=== PATIENT | female | born 1950 | race Caucasian/White ===

== ENCOUNTER 2016-10-20 18:51 | Inpatient (IN) | payer MEDICARE ==
[~2016-10-20] VITALS: Ht 177.8 cm; Wt 68.6 kg
[2016-10-20] MEDS ORDERED: ONDANSETRON PF 4 MG/2 ML VIAL. IV ONE (19:15)
[2016-10-20] MEDS ORDERED: IV NORMAL SALINE 1000ML BAG 1,000 ML IV ONE ×2 (19:15→20:00)
[2016-10-20] MEDS ORDERED: HYDROmorphone 2 MG/ML VIAL IV ONE (19:15)
[2016-10-20 19:16] LABS: BASO # 0.2 x10^3/uL (0.0-0.2); BASO % 1 % (0-3); EOS % 1 % (0-3); HEMATOCRIT 35.6 % (36.0-47.0); LYMPH # 2.8 x10^3/uL (1.0-4.8); LYMPH % 15 % (24-48); MEAN CORPUSCULAR HEMOGLOBIN 32 pg (25-35); MEAN CORPUSCULAR HGB CONC 34 g/dL (31-37); MEAN CORPUSCULAR VOLUME 95 fL (79-100); MONO % 9 % (0-9); NEUT % 74 % (31-73); PLATELET COUNT 276 x10^3/uL (140-400); RED BLOOD COUNT 3.74 x10^6/uL (3.50-5.40); RED CELL DISTRIBUTION WIDTH 13.5 % (11.5-14.5); WHITE BLOOD COUNT 18.8 x10^3/uL (4.0-11.0)
[2016-10-20 19:26] LABS: CALCIUM 8.7 mg/dL (8.5-10.1); CREATININE 1.4 mg/dL (0.6-1.0); GFR 37.9; POTASSIUM 3.3 mmol/L (3.5-5.1)
[2016-10-20 19:33] LABS: ALBUMIN 3.3 g/dL (3.4-5.0); ALBUMIN/GLOBULIN RATIO 0.8 (1.0-1.7); TOTAL BILIRUBIN 0.5 mg/dL (0.2-1.0); TOTAL PROTEIN 7.7 g/dL (6.4-8.2)
--- NOTE | 2016-10-20 19:37 | PHYS DOC ---
Past Medical History Past Medical History: Anxiety, Fibromyalgia, Hypertension, Other Additional Past Medical Histor: chronic pain Past Surgical History: Appendectomy, Hysterectomy, Other Additional Past Surgical Histo: fecal transplant, rotator cuff repair Alcohol Use: None Drug Use: Marijuana Adult General Chief Complaint Chief Complaint: back pain and right sided chest pain [facility] HPI Patient is a 65 year old female who presents with history of fibromyalgia chronic back pain with radiculopathy chronically on opioids presents with exacerbation of her back pain for 5 days still able to take her pain meds also complaining of right sided pleuritic chest pain. No cough, fever, substernal chest pain, vomiting or diarrhea, dysuria or flank pain. Review of Systems Review of Systems Constitutional: Denies fever or chills [] Eyes: Denies change in visual acuity, redness, or eye pain [] HENT: Denies nasal congestion or sore throat [] Respiratory: Denies cough or shortness of breath [] Cardiovascular: No additional information not addressed in HPI [] GI: Denies abdominal pain, nausea, vomiting, bloody stools or diarrhea [] : Denies dysuria or hematuria [] Musculoskeletal: Denies back pain or joint pain [] Integument: Denies rash or skin lesions [] Neurologic: Denies headache, focal weakness or sensory changes [] Endocrine: Denies polyuria or polydipsia [] Current Medications Current Medications Current Medications Medications (Trade) Dose Ordered Sig/Sravan Start Time Stop Time Status Last Admin Dose Admin Hydromorphone HCl (Dilaudid) 1 mg PRN Q15MIN PRN 10/20/16 23:00 10/21/16 22:59 10/20/16 22:55 1 MG Info (Do NOT chart on this entry -- for MONITORING) 1 each PRN DAILY PRN 10/20/16 20:30 10/22/16 20:29 Iohexol (Omnipaque 300 Mg/ml) 75 ml 1X ONCE 10/20/16 20:45 10/20/16 20:46 DC Ondansetron HCl (Zofran) 4 mg 1X ONCE 10/20/16 19:15 10/20/16 19:16 DC 10/20/16 19:40 4 MG Sodium Chloride 1,000 ml @ 1,000 mls/hr 1X ONCE 10/20/16 20:00 10/20/16 20:59 DC 10/20/16 22:29 1,000 MLS/HR Allergies Allergies Allergies Coded Allergies Type Severity Reaction Last Updated Verified NSAIDS (Non-Steroidal Anti-Inflamma Adverse Reaction Unknown Diarrhea 11/19/15 Yes codeine Adverse Reaction Unknown Nausea and Vomiting 11/19/15 Yes metronidazole Adverse Reaction Unknown Nausea and Vomiting 11/19/15 Yes Physical Exam Physical Exam Constitutional: Well developed, well nourished, no acute distress, non-toxic appearance. [] HENT: Normocephalic, atraumatic, bilateral external ears normal, oropharynx moist, no oral exudates, nose normal. [] Eyes: PERRLA, EOMI, conjunctiva normal, no discharge. [] Neck: Normal range of motion, no tenderness, supple, no stridor. [] Cardiovascular:Heart rate regular rhythm, no murmur [] Lungs & Thorax: Bilateral breath sounds clear to auscultation [] Abdomen: Bowel sounds normal, soft, no tenderness, no masses, no pulsatile masses. [] Skin: Warm, dry, no erythema, no rash. [] Back: No tenderness, no CVA tenderness. [] Extremities: No tenderness, no cyanosis, no clubbing, ROM intact, no edema. [] Neurologic: Alert and oriented X 3, normal motor function, normal sensory function, no focal deficits noted. [] Psychologic: Affect normal, judgement normal, mood normal. [] Current Patient Data Vital Signs Vital Signs Date Time Temp Pulse Resp B/P (MAP) Pulse Ox O2 Delivery O2 Flow Rate FiO2 10/20/16 22:30 120 20 139/73 (95) 92 Nasal Cannula 3.0 10/20/16 19:00 98.4 98.4 Lab Values Laboratory Tests Test 10/20/16 19:10 10/20/16 20:06 10/20/16 20:20 White Blood Count 18.8 x10^3/uL (4.0-11.0) H Red Blood Count 3.74 x10^6/uL (3.50-5.40) Hemoglobin 12.0 g/dL (12.0-15.5) Hematocrit 35.6 % (36.0-47.0) L Mean Corpuscular Volume 95 fL (79-100) Mean Corpuscular Hemoglobin 32 pg (25-35) Mean Corpuscular Hemoglobin Concent 34 g/dL (31-37) Red Cell Distribution Width 13.5 % (11.5-14.5) Platelet Count 276 x10^3/uL (140-400) Neutrophils (%) (Auto) 74 % (31-73) H Lymphocytes (%) (Auto) 15 % (24-48) L Monocytes (%) (Auto) 9 % (0-9) Eosinophils (%) (Auto) 1 % (0-3) Basophils (%) (Auto) 1 % (0-3) Neutrophils # (Auto) 13.9 x10^3uL (1.8-7.7) H Lymphocytes # (Auto) 2.8 x10^3/uL (1.0-4.8) Monocytes # (Auto) 1.7 x10^3/uL (0.0-1.1) H Eosinophils # (Auto) 0.2 x10^3/uL (0.0-0.7) Basophils # (Auto) 0.2 x10^3/uL (0.0-0.2) Segmented Neutrophils % 73 % (35-66) H Lymphocytes % 18 % (24-48) L Monocytes % 4 % (0-10) Eosinophils % 5 % (0-5) Platelet Estimate Adequate (ADEQUATE) Sodium Level 130 mmol/L (136-145) L Potassium Level 3.3 mmol/L (3.5-5.1) L Chloride Level 92 mmol/L (98-107) L Carbon Dioxide Level 25 mmol/L (21-32) Anion Gap 13 (6-14) Blood Urea Nitrogen 16 mg/dL (7-20) Creatinine 1.4 mg/dL (0.6-1.0) H Estimated GFR (Cockcroft-Gault) 37.9 BUN/Creatinine Ratio 11 (6-20) Glucose Level 124 mg/dL (70-99) H Calcium Level 8.7 mg/dL (8.5-10.1) Total Bilirubin 0.5 mg/dL (0.2-1.0) Aspartate Amino Transferase (AST) 30 U/L (15-37) Alanine Aminotransferase (ALT) 15 U/L (14-59) Alkaline Phosphatase 84 U/L (46-116) Troponin I Quantitative < 0.017 ng/mL (0.000-0.055) Total Protein 7.7 g/dL (6.4-8.2) Albumin 3.3 g/dL (3.4-5.0) L Albumin/Globulin Ratio 0.8 (1.0-1.7) L Urine Collection Type Unknown Urine Color Yellow Urine Clarity Cloudy Urine pH 5.5 Urine Specific Brok[place] 1.020 Urine Protein 30 mg/dL (NEG-TRACE) Urine Glucose (UA) Negative mg/dL (NEG) Urine Ketones (Stick) Negative mg/dL (NEG) Urine Blood Large (NEG) Urine Nitrite Negative (NEG) Urine Bilirubin Small (NEG) Urine Urobilinogen Dipstick 0.2 mg/dL (0.2 mg/dL) Urine Leukocyte Esterase Negative (NEG) Urine RBC 11-20 /HPF (0-2) Urine WBC 1-4 /HPF (0-4) Urine Squamous Epithelial Cells Many /LPF Urine Amorphous Sediment Present /HPF Urine Bacteria Few /HPF (0-FEW) Urine Granular Casts Occasional /HPF Urine Mucus Marked /LPF Lactic Acid Level 0.6 mmol/L (0.4-2.0) Laboratory Tests 10/20/16 19:10 Laboratory Tests 10/20/16 19:10 EKG EKG EKG sinus tachycardia sinus rhythm no STEMI QTC normal my interpretation Radiology/Procedures Radiology/Procedures Chest x-ray negative per radiology [] [facility] [address], [place] [id number] IMAGING REPORT Signed PATIENT: RODOLFO ELLER ACCOUNT: [id number] : 1950 LOCATION: ER AGE: 65 SEX: F EXAM STATUS: REG ER ORD. PHYSICIAN: TOMASA OLIVA MD REASON: right chest pain eval for PE PROCEDURE: CT ANGIOGRAPHY CHEST Indication: Right-sided chest pain for 5 days. Technique: Axial images and coronal and sagittal maximum intensity projection reformatted images are provided. 75 mL of intravenous Isovue-370 was administered without complication. No comparison is available. One or more of the following individualized dose reduction techniques were utilized for this examination: 1. Automated exposure control 2. Adjustment of the mA and/or kV according to patient size 3. Use of iterative reconstruction technique Findings: The contrast bolus is satisfactory. There is no filling defect to suggest pulmonary embolism. There is atheromatous disease in the thoracic aorta without aneurysm or dissection. The heart is not enlarged. Coronary artery calcifications are noted. There is no hilar or mediastinal adenopathy. There is wdfq-ar-dsodtifn emphysema. There is dependent atelectasis. There is consolidation in the right lower lobe. There are minimal pleural effusions. There are left upper lobe nodules, 2 of which are cavitary, the largest is 16 mm in size. There is no adrenal mass. There are degenerative changes in the spine. IMPRESSION: 1. Negative for pulmonary embolism. 2. Left upper lobe nodules, 2 of which are cavitary, measure up to 16 mm in size. Differential considerations are quite broad, would include metastatic disease, septic emboli, and vasculitis. 3. Right lower lobe consolidation may represent pneumonia. 4. Emphysema. Electronically signed by: Xavier Manjarrez MD (10/20/2016 9:40 PM) [facility] DICTATED and SIGNED BY: XAVIER MANJARREZ MD DATE: 10/20/162132 CC: GATITO WALLACE MD; ELISABETH BEAVERS MD; TOMASA OLIVA MD ~ Impressions: Community-acquired pneumonia hypoxemia Tachycardia Course & Med Decision Making Course & Med Decision Making Pertinent Labs and Imaging studies reviewed. (See chart for details) Patient was a checkout to me with CT angiogram of the chest pending. CT angiogram did not show any PE but there is a right lower lobe consolidation consistent with pneumonia. She is received IV fluids and blood cultures. I started Rocephin and azithromycin and she's requiring oxygen to keep her O2 sats above 95%. She's being admitted to telemetry in stable condition this time. Orders have been written. Dragon Disclaimer Dragon Disclaimer This electronic medical record was generated, in whole or in part, using a voice recognition dictation system. Departure Departure Impression: Primary Impression: Community acquired pneumonia Disposition: ADMITTED INPATIENT Admitting Physician: Ailyn Camp Condition: STABLE Referrals: ELISABETH BEAVERS MD (PCP) Problem Qualifiers Primary Impression: Community acquired pneumonia Laterality: right Lung location: lower lobe of lung Qualified Codes: J18.1 - Lobar pneumonia, unspecified organism TOMASA OLIVA MD Oct 20, 2016 19:37 GATITO WALLACE MD Oct 20, 2016 22:51
[2016-10-20 20:16] LABS: BILIRUBIN,URINE SMALL (NEG); GLUCOSE,URINE NEGATIVE (NEG); NITRITE,URINE NEGATIVE (NEG); PH,URINE 5.5; PROTEIN,URINE 30 mg/dL (NEG-TRACE); UROBILINOGEN,URINE 0.2 mg/dL (0.2 mg/dL)
[2016-10-20 20:23] LABS: BACTERIA,URINE FEW /HPF (0-FEW); SQUAMOUS EPITHELIAL CELL,UR MANY /LPF
[2016-10-20] MEDS ORDERED: CONTRAST GIVEN MC PRN (20:30)
[2016-10-20] MEDS ORDERED: IOHEXOL 300 MG/ML 75 ML VIAL IV ONE (20:45)
[2016-10-20 20:53] LABS: % EOS 5 % (0-5); PLT ESTIMATE ADEQUATE (ADEQUATE)
--- NOTE | 2016-10-20 21:43 | RAD ---
Indication: Right-sided chest pain for 5 days. Technique: Axial images and coronal and sagittal maximum intensity projection reformatted images are provided. 75 mL of intravenous Isovue-370 was administered without complication. No comparison is available. One or more of the following individualized dose reduction techniques were utilized for this examination: 1. Automated exposure control 2. Adjustment of the mA and/or kV according to patient size 3. Use of iterative reconstruction technique Findings: The contrast bolus is satisfactory. There is no filling defect to suggest pulmonary embolism. There is atheromatous disease in the thoracic aorta without aneurysm or dissection. The heart is not enlarged. Coronary artery calcifications are noted. There is no hilar or mediastinal adenopathy. There is zmhv-hm-ipwlutlg emphysema. There is dependent atelectasis. There is consolidation in the right lower lobe. There are minimal pleural effusions. There are left upper lobe nodules, 2 of which are cavitary, the largest is 16 mm in size. There is no adrenal mass. There are degenerative changes in the spine. IMPRESSION: 1. Negative for pulmonary embolism. 2. Left upper lobe nodules, 2 of which are cavitary, measure up to 16 mm in size. Differential considerations are quite broad, would include metastatic disease, septic emboli, and vasculitis. 3. Right lower lobe consolidation may represent pneumonia. 4. Emphysema. Electronically signed by: Xavier Manjarrez MD (10/20/2016 9:40 PM) [facility]
[2016-10-20] MEDS ORDERED: HYDROmorphone 2 MG/ML VIAL IV/SQ PRN (23:00)
[2016-10-20] MEDS ORDERED: AZITHRMYCN 500MG IVPB FOR OMNI 250 ML IV ONE (23:30)
[2016-10-21] VITALS (7 sets, daily range): BP systolic 94–154; BP diastolic 52–97
[2016-10-21] MEDS ORDERED: OXYC10TA45 PO (00:36)
[2016-10-21] MEDS ORDERED: HYDR-2766 PO (00:36)
[2016-10-21] MEDS: HYDROcodone/APAP 10/325 1 TAB TABLET PO PRN ×6 (01:15→23:10)
[2016-10-21] MEDS ORDERED: LEXAPRO20 MG PO (05:37)
[2016-10-21] MEDS ORDERED: DIPH25CA58 PO (05:37)
[2016-10-21] MEDS ORDERED: HYDR12.58 PO (05:37)
[2016-10-21] MEDS ORDERED: MELA3TAB2 PO (05:37)
[2016-10-21] MEDS ORDERED: QUET25TA5 PO (05:37)
[2016-10-21] MEDS: oxyCODONE ER 10 MG TAB.ER.12H PO SCH ×2 (08:20→21:11)
[2016-10-21] MEDS: NICOTINE 21MG PATCH. TD SCH (08:20)
--- NOTE | 2016-10-21 08:22 | RAD ---
Single view chest History:Right pleuritic chest pain today An AP view of the chest is submitted. Comparison: 11/19/2015. Findings: There is a couple of foci nodularity of the mid to superior left hemithorax more apparent on this exam. There is no dependent pleural fluid or pneumothorax. Cardiac silhouette is stable, within normal limits. There is mild interstitial opacity. No convincing lobar infiltrate is identified by radiograph, low lung volumes due to poor inspiration. Impression: There is suboptimal inspiration. There are a couple of foci of nodularity of the mid to superior left hemithorax, CT already performed. Right lower lobe infiltrate on CT is poorly distinguished by this radiograph.
--- NOTE | 2016-10-21 11:09 | EKG ---
[facility] [address] [place] [address] Test Date: 2016-10-20 Test Time: 19:13:33 Pat Name: RODOLFO ELLER Department: Room: 2 Gender: F Biogeographer: : 1950 Requested By: TOMASA OLIVA Order Number: [id number] Reading MD: Jeffery Kunz Measurements Intervals [place] Rate: 121 P: 61 MS: 134 QRS: 52 QRSD: 88 T: 45 QT: 310 QTc: 443 Interpretive Statements SINUS TACHYCARDIA Electronically Signed On 10-24-2016 9:59:03 CDT by Jeffery Kunz
[2016-10-21] MEDS ORDERED: diphenhydrAMINE HCL 25 MG CAPSULE PO PRN (12:15)
[2016-10-21] MEDS ORDERED: NON FORMULARY ITEM (Melatonin 1 TAB) PO PRN (12:15)
--- NOTE | 2016-10-21 12:35 | HP ---
ADMIT DATE: 10/21/2016 CHIEF COMPLAINT: Shortness of breath, chest pain, back pain. HISTORY OF PRESENT ILLNESS: The patient is a pleasant 65-year-old female, who presented with chest pain, shortness of breath and back pain. We did imaging in the ER which is showing left upper lobe nodules which could be possibly metastatic disease versus emboli versus vasculitis. She also has a right-sided consolidation, which is probably pneumonia. I discussed the case with ER physician. We are going to admit the patient with consultation to pulmonary medicine. PAST MEDICAL HISTORY: Anxiety, fibromyalgia, hypertension, hysterectomy, appendectomy, fecal transplant, rotator cuff repair. ALLERGIES: NSAIDS. FAMILY HISTORY: Diabetes. SOCIAL HISTORY: She does not drink, smoke or take drugs. MEDICATIONS: Reviewed. REVIEW OF SYSTEMS: GENERAL: No history of weight change, weakness or fevers. SKIN: No bruising, hair changes or rashes. EYES: No blurred, double or loss of vision. NOSE AND THROAT: No history of nosebleeds, hoarseness or sore throat. HEART: No history of palpitations. Complains of chest pain. LUNGS: Denies cough, hemoptysis, wheezing. She complains of shortness of breath. GASTROINTESTINAL: Denies changes in appetite, nausea, vomiting, diarrhea or constipation. GENITOURINARY: No history of frequency, urgency, hesitancy or nocturia. NEUROLOGIC: Denies history of numbness, tingling, tremor or weakness. PSYCHIATRIC: No history of panic, anxiety or depression. ENDOCRINE: No history of heat or cold intolerance, polyuria or polydipsia. EXTREMITIES: Denies muscle weakness, joint pain, pain on walking or stiffness. PHYSICAL EXAMINATION: VITAL SIGNS: Temperature afebrile, pulse 100, respirations 20, blood pressure 94/56. GENERAL: She is alert, cooperative. HEART: Normal S1, S2. LUNGS: Diminished with slight crackles. ABDOMEN: Soft, positive bowel sounds. EXTREMITIES: Trace edema. SKIN: No rashes. PSYCHIATRIC: She is a little anxious. VASCULAR: Good capillary refill. ENDOCRINE: No thyromegaly. LYMPHATICS: No cervical nodes. HEMATOPOIETIC: No bruising. LABORATORY DATA: White count 19, hemoglobin 12, platelets 276. Electrolytes: Sodium 130, potassium 3.3, chloride 92, bicarbonate 25, BUN 16, creatinine 1.4, glucose 124. ASSESSMENT AND PLAN: Pneumonia and possible nodules in the lungs with possible metastatic disease. We will consult Pulmonary Medicine, IV antibiotics, DuoNebs, oxygen. We will consider steroids if pulmonary agrees. Replace her potassium. PT, OT and home meds. KYLE RYAN DO DR: KI/regla JOB#: [id number] / [id number]
[2016-10-21] MEDS: HYDROmorphone 2 MG/ML VIAL IVP PRN ×3 (13:12→19:34)
--- NOTE | 2016-10-21 13:13 | PDOC ---
Provider Note Provider Note [id number] acute resp fail abnl ct pneumonia copd/emphysema see orders. JAREK BLACKWELL MD Oct 21, 2016 13:13
--- NOTE | 2016-10-21 14:02 | CONS ---
DATE OF CONSULTATION: 10/21/2016 HISTORY OF PRESENT ILLNESS: I was asked to see this 65-year-old lady for abnormal CT of the chest, shortness of breath, chest pain. She has history of at least [id number]-[id number] smoking, continues to smoke about 1 pack per day. She states that she has not been diagnosed with COPD. She has not felt good for the past 5 or 6 days. She states that last week she did not have any problems. She has had chest pain, mostly right-sided. She has had fever, cough now with brown sputum production. She denies runny nose or nasal congestion. Has had diarrhea for at least 20 years. She developed C. diff colitis 2 years ago, which was very difficult to treat and since then she has had diarrhea. She smoked marijuana before. She denies IV drug abuse. She does not have any pets. PAST MEDICAL HISTORY: Hypertension, anxiety, history of C. diff. ALLERGIES: NSAIDS, CODEINE, FLAGYL. MEDICATIONS: Currently she is on azithromycin, Rocephin, Celexa, Dilaudid, nicotine patch, Zofran p.r.n., Seroquel. SOCIAL HISTORY: History of at least 39-[id number] smoking, continues to smoke about 1 pack per day. FAMILY HISTORY: There is no history of lung disease. REVIEW OF SYSTEMS: As mentioned as above, other systems otherwise negative. PHYSICAL EXAMINATION: GENERAL: This is an ill-appearing lady. VITAL SIGNS: Her O2 saturation on 3 liters of oxygen is 92%, respiratory rate 22, heart rate 100, blood pressure 154/76, temperature 98.6. HEENT: Normocephalic, atraumatic. Pupils are equal, round, reactive to light. Nose is clear. She has poor dentition. NECK: There is no JVD, lymphadenopathy or thyromegaly. CARDIOVASCULAR: Regular rate and rhythm. Distant heart sounds. CHEST: Inspection is normal. LUNGS: Clear to auscultation. A few end expiratory wheezing with forced exhalation. ABDOMEN: Soft. Bowel sounds are good. There is no mass. EXTREMITIES: There is no edema. LYMPHATICS: There is no lymphadenopathy. SKIN: Chronic changes. NEUROLOGIC: Alert and oriented x 3. LABORATORY DATA: I reviewed the following lab data: Chest x-ray, nodularity seen in left upper lobe area. CT of the chest did not show pulmonary embolism. It showed left upper lobe nodules, 2 of them are cavitary, the largest is 60 mm in size. Right lower lobe infiltrate, emphysema changes. Sodium 130, potassium 3.3, chloride 92, CO2 25, glucose 124, BUN 16, creatinine 1.4. Total bilirubin 0.5, AST 30, ALT 50, and alk phos 84. Troponin 0.03. Albumin 3.3. WBC 18.8, hemoglobin 12, platelet 276. IMPRESSION: 1. Acute respiratory failure, multifactorial in etiology. 2. Abnormal CT of the chest with cavitary pulmonary nodules, could be secondary to metastatic disease versus septic emboli versus [place] granulomatosis, lung abscess versus others. 3. Poor dentition. 4. Acute kidney injury. 5. Hyponatremia. 6. Hypokalemia. 7. Leukocytosis. 8. Right lower lobe infiltrate, probably pneumonia. 9. Tobacco habituation. 10. Emphysema/chronic obstructive pulmonary disease. PLAN AND RECOMMENDATIONS: 1. Titrate FiO2 to keep O2 saturation 92%. 2. Start bronchodilator. 3. Continue Rocephin and azithromycin. 4. Blood cultures x 2. 5. Urine for legionella and strep pneumoniae antigen. 6. Echocardiogram. 7. ANCA. 8. SAVAGE panel. 9. She may require CT guided biopsy. Pulmonary nodules are peripheral. 10. Urine drug screen. 11. I had a long discussion with her regarding smoking cessation. I have advised her to stop smoking forever. 12. C-reactive protein. 13. Continue antibiotics. 14. She has multiple dental cavities. She would require a dental exam by a dentist. 15. The findings and recommendations were discussed with the patient. She understood and agreed to proceed with the plan. I have answered all of her questions. JAREK BLACKWELL M.D. : BRONSON/regla JOB#: [id number] / [id number]
[2016-10-21] MEDS: AZITHROMYCIN 500 MG in IV NORMAL SALINE 250ML 250 ML IV SCH (14:15)
[2016-10-21 14:18] LABS: BARBITURATES NEG (NEG); BENZODIAZEPINES NEG (NEG); CANNABINOIDS POS (NEG); COCAINE NEG (NEG); METHADONE NEG (NEG); OPIATES POS (NEG); PHENCYCLIDINE NEG (NEG)
[2016-10-21] MEDS: IPRATRPIUM/ALBUTEROL 0.5/2.5MG 3 ML NEBU. NEB SCH ×2 (16:25→19:20)
[2016-10-21] MEDS: QUEtiapine 25 MG TABLET. PO SCH (21:10)
[2016-10-21] MEDS: CITALOPRAM 20 MG TABLET. PO SCH (21:11)
[2016-10-21] MEDS: hydroCHLOROthiazide 12.5 MG CAPSULE PO SCH (21:11)
[2016-10-22] MEDS: HYDROmorphone 2 MG/ML VIAL IVP PRN ×7 (01:37→22:43)
[2016-10-22 03:00] VITALS: BP 110/62
[2016-10-22] MEDS: HYDROcodone/APAP 10/325 1 TAB TABLET PO PRN ×4 (06:27→22:47)
[2016-10-22 07:00] VITALS: BP 102/64
[2016-10-22] MEDS: IPRATRPIUM/ALBUTEROL 0.5/2.5MG 3 ML NEBU. NEB SCH ×4 (07:19→19:29)
[2016-10-22 08:17] LABS: BASO % 0 % (0-3); EOS % 1 % (0-3); HEMATOCRIT 32.3 % (36.0-47.0); HEMOGLOBIN 10.9 g/dL (12.0-15.5); LYMPH # 1.8 x10^3/uL (1.0-4.8); LYMPH % 10 % (24-48); MEAN CORPUSCULAR HEMOGLOBIN 32 pg (25-35); MEAN CORPUSCULAR HGB CONC 34 g/dL (31-37); MEAN CORPUSCULAR VOLUME 95 fL (79-100); MONO % 6 % (0-9); NEUT % 82 % (31-73); PLATELET COUNT 266 x10^3/uL (140-400); RED BLOOD COUNT 3.38 x10^6/uL (3.50-5.40); RED CELL DISTRIBUTION WIDTH 13.6 % (11.5-14.5); WHITE BLOOD COUNT 18.2 x10^3/uL (4.0-11.0)
[2016-10-22] MEDS: NICOTINE 21MG PATCH. TD SCH (08:19)
[2016-10-22] MEDS: oxyCODONE ER 10 MG TAB.ER.12H PO SCH ×2 (08:19→20:34)
[2016-10-22 08:30] LABS: CALCIUM 8.4 mg/dL (8.5-10.1); CREATININE 0.9 mg/dL (0.6-1.0); POTASSIUM 3.5 mmol/L (3.5-5.1)
[2016-10-22 09:13] LABS: SPECIMEN SOURCE Urine (.)
[2016-10-22 10:56] VITALS: BP 88/54
--- NOTE | 2016-10-22 12:11 | PDOC ---
PULMONARY PROGRESS NOTES Subjective feels better, less sob, pain, has cough, brown sputum Vitals Vital Signs Date Time Temp Pulse Resp B/P (MAP) Pulse Ox O2 Delivery O2 Flow Rate FiO2 10/22/16 11:41 92 Nasal Cannula 3.0 10/22/16 10:56 98.5 67 22 88/54 (65) 98.5 ROS: No Nausea, No Chest Pain General: Alert, Oriented X4 HEENT: Other (nc at perrl nose clear, poor dentition) Lungs: Crackles Cardiovascular: S1, S2 Abdomen: Soft, Non-tender Neuro Exam: Oriented Extremities: No Edema Skin: Warm Labs Laboratory Tests Test 10/20/16 19:10 10/20/16 20:06 10/20/16 20:20 10/21/16 05:48 White Blood Count 18.8 x10^3/uL (4.0-11.0) Red Blood Count 3.74 x10^6/uL (3.50-5.40) Hemoglobin 12.0 g/dL (12.0-15.5) Hematocrit 35.6 % (36.0-47.0) Mean Corpuscular Volume 95 fL (79-100) Mean Corpuscular Hemoglobin 32 pg (25-35) Mean Corpuscular Hemoglobin Concent 34 g/dL (31-37) Red Cell Distribution Width 13.5 % (11.5-14.5) Platelet Count 276 x10^3/uL (140-400) Neutrophils (%) (Auto) 74 % (31-73) Lymphocytes (%) (Auto) 15 % (24-48) Monocytes (%) (Auto) 9 % (0-9) Eosinophils (%) (Auto) 1 % (0-3) Basophils (%) (Auto) 1 % (0-3) Neutrophils # (Auto) 13.9 x10^3uL (1.8-7.7) Lymphocytes # (Auto) 2.8 x10^3/uL (1.0-4.8) Monocytes # (Auto) 1.7 x10^3/uL (0.0-1.1) Eosinophils # (Auto) 0.2 x10^3/uL (0.0-0.7) Basophils # (Auto) 0.2 x10^3/uL (0.0-0.2) Segmented Neutrophils % 73 % (35-66) Lymphocytes % 18 % (24-48) Monocytes % 4 % (0-10) Eosinophils % 5 % (0-5) Platelet Estimate Adequate (ADEQUATE) Sodium Level 130 mmol/L (136-145) Potassium Level 3.3 mmol/L (3.5-5.1) Chloride Level 92 mmol/L (98-107) Carbon Dioxide Level 25 mmol/L (21-32) Anion Gap 13 (6-14) Blood Urea Nitrogen 16 mg/dL (7-20) Creatinine 1.4 mg/dL (0.6-1.0) Estimated GFR (Cockcroft-Gault) 37.9 BUN/Creatinine Ratio 11 (6-20) Glucose Level 124 mg/dL (70-99) Calcium Level 8.7 mg/dL (8.5-10.1) Total Bilirubin 0.5 mg/dL (0.2-1.0) Aspartate Amino Transf (AST/SGOT) 30 U/L (15-37) Alanine Aminotransferase (ALT/SGPT) 15 U/L (14-59) Alkaline Phosphatase 84 U/L (46-116) Troponin I Quantitative < 0.017 ng/mL (0.000-0.055) 0.037 ng/mL (0.000-0.055) Total Protein 7.7 g/dL (6.4-8.2) Albumin 3.3 g/dL (3.4-5.0) Albumin/Globulin Ratio 0.8 (1.0-1.7) Urine Collection Type Unknown Urine Color Yellow Urine Clarity Cloudy Urine pH 5.5 Urine Specific [place] 1.020 Urine Protein 30 mg/dL (NEG-TRACE) Urine Glucose (UA) Negative mg/dL (NEG) Urine Ketones (Stick) Negative mg/dL (NEG) Urine Blood Large (NEG) Urine Nitrite Negative (NEG) Urine Bilirubin Small (NEG) Urine Urobilinogen Dipstick 0.2 mg/dL (0.2 mg/dL) Urine Leukocyte Esterase Negative (NEG) Urine RBC 11-20 /HPF (0-2) Urine WBC 1-4 /HPF (0-4) Urine Squamous Epithelial Cells Many /LPF Urine Amorphous Sediment Present /HPF Urine Bacteria Few /HPF (0-FEW) Urine Granular Casts Occasional /HPF Urine Mucus Marked /LPF Lactic Acid Level 0.6 mmol/L (0.4-2.0) Test 10/21/16 11:50 10/21/16 13:45 10/22/16 07:15 Troponin I Quantitative 0.033 ng/mL (0.000-0.055) C-Reactive Protein, Quantitative 285.8 mg/L (0-3.3) Body Fluid Culture (LAB) (.) Urine Opiates Screen Pos (NEG) Urine Methadone Screen Neg (NEG) Urine Barbiturates Neg (NEG) Urine Phencyclidine Screen Neg (NEG) Urine Amphetamine/Methamphetamine Neg (NEG) Urine Benzodiazepines Screen Neg (NEG) Urine Cocaine Screen Neg (NEG) Urine Cannabinoids Screen Pos (NEG) Urine Ethyl Alcohol Neg (NEG) Urine Legionella Antigen Negative (Negative) Streptococcus pneumoniae Antigen Negative (Negative) Organism Identification (LAB) (.) JESSICA Specimen Source Urine (.) White Blood Count 18.2 x10^3/uL (4.0-11.0) Red Blood Count 3.38 x10^6/uL (3.50-5.40) Hemoglobin 10.9 g/dL (12.0-15.5) Hematocrit 32.3 % (36.0-47.0) Mean Corpuscular Volume 95 fL (79-100) Mean Corpuscular Hemoglobin 32 pg (25-35) Mean Corpuscular Hemoglobin Concent 34 g/dL (31-37) Red Cell Distribution Width 13.6 % (11.5-14.5) Platelet Count 266 x10^3/uL (140-400) Neutrophils (%) (Auto) 82 % (31-73) Lymphocytes (%) (Auto) 10 % (24-48) Monocytes (%) (Auto) 6 % (0-9) Eosinophils (%) (Auto) 1 % (0-3) Basophils (%) (Auto) 0 % (0-3) Neutrophils # (Auto) 14.9 x10^3uL (1.8-7.7) Lymphocytes # (Auto) 1.8 x10^3/uL (1.0-4.8) Monocytes # (Auto) 1.2 x10^3/uL (0.0-1.1) Eosinophils # (Auto) 0.2 x10^3/uL (0.0-0.7) Basophils # (Auto) 0.0 x10^3/uL (0.0-0.2) Sodium Level 133 mmol/L (136-145) Potassium Level 3.5 mmol/L (3.5-5.1) Chloride Level 97 mmol/L (98-107) Carbon Dioxide Level 25 mmol/L (21-32) Anion Gap 11 (6-14) Blood Urea Nitrogen 8 mg/dL (7-20) Creatinine 0.9 mg/dL (0.6-1.0) Estimated GFR (Cockcroft-Gault) 63.0 Glucose Level 96 mg/dL (70-99) Calcium Level 8.4 mg/dL (8.5-10.1) Laboratory Tests Test 10/21/16 13:45 10/22/16 07:15 Body Fluid Culture (LAB) (.) Urine Opiates Screen Pos (NEG) Urine Methadone Screen Neg (NEG) Urine Barbiturates Neg (NEG) Urine Phencyclidine Screen Neg (NEG) Urine Amphetamine/Methamphetamine Neg (NEG) Urine Benzodiazepines Screen Neg (NEG) Urine Cocaine Screen Neg (NEG) Urine Cannabinoids Screen Pos (NEG) Urine Ethyl Alcohol Neg (NEG) Urine Legionella Antigen Negative (Negative) Streptococcus pneumoniae Antigen Negative (Negative) Organism Identification (LAB) (.) JESSICA Specimen Source Urine (.) White Blood Count 18.2 x10^3/uL (4.0-11.0) Red Blood Count 3.38 x10^6/uL (3.50-5.40) Hemoglobin 10.9 g/dL (12.0-15.5) Hematocrit 32.3 % (36.0-47.0) Mean Corpuscular Volume 95 fL (79-100) Mean Corpuscular Hemoglobin 32 pg (25-35) Mean Corpuscular Hemoglobin Concent 34 g/dL (31-37) Red Cell Distribution Width 13.6 % (11.5-14.5) Platelet Count 266 x10^3/uL (140-400) Neutrophils (%) (Auto) 82 % (31-73) Lymphocytes (%) (Auto) 10 % (24-48) Monocytes (%) (Auto) 6 % (0-9) Eosinophils (%) (Auto) 1 % (0-3) Basophils (%) (Auto) 0 % (0-3) Neutrophils # (Auto) 14.9 x10^3uL (1.8-7.7) Lymphocytes # (Auto) 1.8 x10^3/uL (1.0-4.8) Monocytes # (Auto) 1.2 x10^3/uL (0.0-1.1) Eosinophils # (Auto) 0.2 x10^3/uL (0.0-0.7) Basophils # (Auto) 0.0 x10^3/uL (0.0-0.2) Sodium Level 133 mmol/L (136-145) Potassium Level 3.5 mmol/L (3.5-5.1) Chloride Level 97 mmol/L (98-107) Carbon Dioxide Level 25 mmol/L (21-32) Anion Gap 11 (6-14) Blood Urea Nitrogen 8 mg/dL (7-20) Creatinine 0.9 mg/dL (0.6-1.0) Estimated GFR (Cockcroft-Gault) 63.0 Glucose Level 96 mg/dL (70-99) Calcium Level 8.4 mg/dL (8.5-10.1) Medications Active Scripts Medications Dose Route/Sig Max Daily Dose Days Date Category Melatonin 3 Mg Tablet 1 Tab PO PRN QHS PRN 10/21/16 Reported Seroquel (Quetiapine Fumarate) 25 Mg Tablet 1 Tab PO QHS 10/21/16 Reported Benadryl (Diphenhydramine Hcl) 25 Mg Capsule 1 Cap PO PRN QHS PRN 10/21/16 Reported Hydrochlorothiazide Tablet (Hydrochlorothiazide) 12.5 Mg Tablet 1 Tab PO QHS 10/21/16 Reported Lexapro (Escitalopram Oxalate) 20 Mg Tablet 1 Tab PO QHS 10/21/16 Reported Hydrocodone-Apap 10-325 (Hydrocodone Bit/Acetaminophen) 1 Each Tablet 1 Tab PO PRN Q4HRS 10/21/16 Reported Oxycontin (Oxycodone HCl) 10 Mg Tab.er.12h 10 Mg PO BID 10/21/16 Reported Impression . IMPRESSION: 1. Acute respiratory failure, multifactorial in etiology. 2. Abnormal CT of the chest with cavitary pulmonary nodules, could be secondary to metastatic disease versus septic emboli versus [place] granulomatosis, lung abscess versus others. 3. Poor dentition. 4. Acute kidney injury. 5. Hyponatremia. 6. Hypokalemia. 7. Leukocytosis. 8. Right lower lobe infiltrate, probably pneumonia. 9. Tobacco habituation. 10. Emphysema/chronic obstructive pulmonary disease. 11. +uds Plan . PLAN AND RECOMMENDATIONS: 1. Titrate FiO2 to keep O2 saturation 92%. 2. bronchodilator. 3. Continue Rocephin and azithromycin. 4. fu Blood cultures x 2. 5. Urine for legionella and strep pneumoniae antigen, neg 6. fu Echocardiogram. 7. fu ANCA. 8. fu SAVAGE panel. 9. ask ir to do CT guided biopsy. Pulmonary nodules are peripheral. 10. Urine drug screen, +. 11. I had a long discussion with her regarding smoking cessation. I have advised her to stop smoking forever. 12. fuC-reactive protein. 13. Continue antibiotics. 14. She has multiple dental cavities. She would require a dental exam by a dentist. 15. sputum cx The findings and recommendations were discussed with the patient. She understood and agreed to proceed with the plan. I have answered all of her questions. JAREK BLACKWELL MD Oct 22, 2016 12:11
[2016-10-22] MEDS: AZITHROMYCIN 500 MG in IV NORMAL SALINE 250ML 250 ML IV SCH (13:05)
[2016-10-22 15:01] VITALS: BP 96/64
--- NOTE | 2016-10-22 15:17 | PDOC ---
PROGRESS NOTES Chief Complaint Chief Complaint CC: Dyspnea PNU Fibromyalgia Depression History of Present Illness History of Present Illness No acute overnight events. Pt still experiencing SOA and is currently on 3L of O2. Vitals Vitals Vital Signs Date Time Temp Pulse Resp B/P (MAP) Pulse Ox O2 Delivery O2 Flow Rate FiO2 10/22/16 11:41 92 Nasal Cannula 3.0 10/22/16 10:56 98.5 67 22 88/54 (65) 98.5 Physical Exam General: Alert, Oriented X3, Cooperative, mild distress Heart: Regular rate, No murmurs Lungs: Crackles Abdomen: Normal bowel sounds, Soft Extremities: No clubbing, No cyanosis Skin: No rashes, No breakdown Labs LABS Laboratory Tests Test 10/22/16 07:15 White Blood Count 18.2 x10^3/uL (4.0-11.0) Red Blood Count 3.38 x10^6/uL (3.50-5.40) Hemoglobin 10.9 g/dL (12.0-15.5) Hematocrit 32.3 % (36.0-47.0) Mean Corpuscular Volume 95 fL (79-100) Mean Corpuscular Hemoglobin 32 pg (25-35) Mean Corpuscular Hemoglobin Concent 34 g/dL (31-37) Red Cell Distribution Width 13.6 % (11.5-14.5) Platelet Count 266 x10^3/uL (140-400) Neutrophils (%) (Auto) 82 % (31-73) Lymphocytes (%) (Auto) 10 % (24-48) Monocytes (%) (Auto) 6 % (0-9) Eosinophils (%) (Auto) 1 % (0-3) Basophils (%) (Auto) 0 % (0-3) Neutrophils # (Auto) 14.9 x10^3uL (1.8-7.7) Lymphocytes # (Auto) 1.8 x10^3/uL (1.0-4.8) Monocytes # (Auto) 1.2 x10^3/uL (0.0-1.1) Eosinophils # (Auto) 0.2 x10^3/uL (0.0-0.7) Basophils # (Auto) 0.0 x10^3/uL (0.0-0.2) Sodium Level 133 mmol/L (136-145) Potassium Level 3.5 mmol/L (3.5-5.1) Chloride Level 97 mmol/L (98-107) Carbon Dioxide Level 25 mmol/L (21-32) Anion Gap 11 (6-14) Blood Urea Nitrogen 8 mg/dL (7-20) Creatinine 0.9 mg/dL (0.6-1.0) Estimated GFR (Cockcroft-Gault) 63.0 Glucose Level 96 mg/dL (70-99) Calcium Level 8.4 mg/dL (8.5-10.1) Review of Systems Review of Systems Complains of SOA Complains of back pain Assessment and Plan Assessmemt and Plan Problems Medical Problems: (1) Community acquired pneumonia Status: Acute CC: Dyspnea PNU: Likely cause of dyspnea, CXR showed consolidation, titrate O2 to FiO2 >95% , continue Rocephin and azithromycin, continue breathing tx as per Dr. Up, appreciate the assistance Fibromyalgia: Continue [employer] oxycodone, Lortab, and Dilaudid Depression: Continue [employer] quetiapine and citalopram Problems: Comment Review of Relevant I have reviewed the following items pat (where applicable) has been applied. Labs Laboratory Tests Test 10/20/16 19:10 10/20/16 20:06 10/20/16 20:20 10/21/16 05:48 White Blood Count 18.8 x10^3/uL (4.0-11.0) Red Blood Count 3.74 x10^6/uL (3.50-5.40) Hemoglobin 12.0 g/dL (12.0-15.5) Hematocrit 35.6 % (36.0-47.0) Mean Corpuscular Volume 95 fL (79-100) Mean Corpuscular Hemoglobin 32 pg (25-35) Mean Corpuscular Hemoglobin Concent 34 g/dL (31-37) Red Cell Distribution Width 13.5 % (11.5-14.5) Platelet Count 276 x10^3/uL (140-400) Neutrophils (%) (Auto) 74 % (31-73) Lymphocytes (%) (Auto) 15 % (24-48) Monocytes (%) (Auto) 9 % (0-9) Eosinophils (%) (Auto) 1 % (0-3) Basophils (%) (Auto) 1 % (0-3) Neutrophils # (Auto) 13.9 x10^3uL (1.8-7.7) Lymphocytes # (Auto) 2.8 x10^3/uL (1.0-4.8) Monocytes # (Auto) 1.7 x10^3/uL (0.0-1.1) Eosinophils # (Auto) 0.2 x10^3/uL (0.0-0.7) Basophils # (Auto) 0.2 x10^3/uL (0.0-0.2) Segmented Neutrophils % 73 % (35-66) Lymphocytes % 18 % (24-48) Monocytes % 4 % (0-10) Eosinophils % 5 % (0-5) Platelet Estimate Adequate (ADEQUATE) Sodium Level 130 mmol/L (136-145) Potassium Level 3.3 mmol/L (3.5-5.1) Chloride Level 92 mmol/L (98-107) Carbon Dioxide Level 25 mmol/L (21-32) Anion Gap 13 (6-14) Blood Urea Nitrogen 16 mg/dL (7-20) Creatinine 1.4 mg/dL (0.6-1.0) Estimated GFR (Cockcroft-Gault) 37.9 BUN/Creatinine Ratio 11 (6-20) Glucose Level 124 mg/dL (70-99) Calcium Level 8.7 mg/dL (8.5-10.1) Total Bilirubin 0.5 mg/dL (0.2-1.0) Aspartate Amino Transf (AST/SGOT) 30 U/L (15-37) Alanine Aminotransferase (ALT/SGPT) 15 U/L (14-59) Alkaline Phosphatase 84 U/L (46-116) Troponin I Quantitative < 0.017 ng/mL (0.000-0.055) 0.037 ng/mL (0.000-0.055) Total Protein 7.7 g/dL (6.4-8.2) Albumin 3.3 g/dL (3.4-5.0) Albumin/Globulin Ratio 0.8 (1.0-1.7) Urine Collection Type Unknown Urine Color Yellow Urine Clarity Cloudy Urine pH 5.5 Urine Specific [place] 1.020 Urine Protein 30 mg/dL (NEG-TRACE) Urine Glucose (UA) Negative mg/dL (NEG) Urine Ketones (Stick) Negative mg/dL (NEG) Urine Blood Large (NEG) Urine Nitrite Negative (NEG) Urine Bilirubin Small (NEG) Urine Urobilinogen Dipstick 0.2 mg/dL (0.2 mg/dL) Urine Leukocyte Esterase Negative (NEG) Urine RBC 11-20 /HPF (0-2) Urine WBC 1-4 /HPF (0-4) Urine Squamous Epithelial Cells Many /LPF Urine Amorphous Sediment Present /HPF Urine Bacteria Few /HPF (0-FEW) Urine Granular Casts Occasional /HPF Urine Mucus Marked /LPF Lactic Acid Level 0.6 mmol/L (0.4-2.0) Test 10/21/16 11:50 10/21/16 13:45 10/22/16 07:15 Troponin I Quantitative 0.033 ng/mL (0.000-0.055) C-Reactive Protein, Quantitative 285.8 mg/L (0-3.3) Body Fluid Culture (LAB) (.) Urine Opiates Screen Pos (NEG) Urine Methadone Screen Neg (NEG) Urine Barbiturates Neg (NEG) Urine Phencyclidine Screen Neg (NEG) Urine Amphetamine/Methamphetamine Neg (NEG) Urine Benzodiazepines Screen Neg (NEG) Urine Cocaine Screen Neg (NEG) Urine Cannabinoids Screen Pos (NEG) Urine Ethyl Alcohol Neg (NEG) Urine Legionella Antigen Negative (Negative) Streptococcus pneumoniae Antigen Negative (Negative) Organism Identification (LAB) (.) JESSICA Specimen Source Urine (.) White Blood Count 18.2 x10^3/uL (4.0-11.0) Red Blood Count 3.38 x10^6/uL (3.50-5.40) Hemoglobin 10.9 g/dL (12.0-15.5) Hematocrit 32.3 % (36.0-47.0) Mean Corpuscular Volume 95 fL (79-100) Mean Corpuscular Hemoglobin 32 pg (25-35) Mean Corpuscular Hemoglobin Concent 34 g/dL (31-37) Red Cell Distribution Width 13.6 % (11.5-14.5) Platelet Count 266 x10^3/uL (140-400) Neutrophils (%) (Auto) 82 % (31-73) Lymphocytes (%) (Auto) 10 % (24-48) Monocytes (%) (Auto) 6 % (0-9) Eosinophils (%) (Auto) 1 % (0-3) Basophils (%) (Auto) 0 % (0-3) Neutrophils # (Auto) 14.9 x10^3uL (1.8-7.7) Lymphocytes # (Auto) 1.8 x10^3/uL (1.0-4.8) Monocytes # (Auto) 1.2 x10^3/uL (0.0-1.1) Eosinophils # (Auto) 0.2 x10^3/uL (0.0-0.7) Basophils # (Auto) 0.0 x10^3/uL (0.0-0.2) Sodium Level 133 mmol/L (136-145) Potassium Level 3.5 mmol/L (3.5-5.1) Chloride Level 97 mmol/L (98-107) Carbon Dioxide Level 25 mmol/L (21-32) Anion Gap 11 (6-14) Blood Urea Nitrogen 8 mg/dL (7-20) Creatinine 0.9 mg/dL (0.6-1.0) Estimated GFR (Cockcroft-Gault) 63.0 Glucose Level 96 mg/dL (70-99) Calcium Level 8.4 mg/dL (8.5-10.1) Laboratory Tests Test 10/22/16 07:15 White Blood Count 18.2 x10^3/uL (4.0-11.0) Red Blood Count 3.38 x10^6/uL (3.50-5.40) Hemoglobin 10.9 g/dL (12.0-15.5) Hematocrit 32.3 % (36.0-47.0) Mean Corpuscular Volume 95 fL (79-100) Mean Corpuscular Hemoglobin 32 pg (25-35) Mean Corpuscular Hemoglobin Concent 34 g/dL (31-37) Red Cell Distribution Width 13.6 % (11.5-14.5) Platelet Count 266 x10^3/uL (140-400) Neutrophils (%) (Auto) 82 % (31-73) Lymphocytes (%) (Auto) 10 % (24-48) Monocytes (%) (Auto) 6 % (0-9) Eosinophils (%) (Auto) 1 % (0-3) Basophils (%) (Auto) 0 % (0-3) Neutrophils # (Auto) 14.9 x10^3uL (1.8-7.7) Lymphocytes # (Auto) 1.8 x10^3/uL (1.0-4.8) Monocytes # (Auto) 1.2 x10^3/uL (0.0-1.1) Eosinophils # (Auto) 0.2 x10^3/uL (0.0-0.7) Basophils # (Auto) 0.0 x10^3/uL (0.0-0.2) Sodium Level 133 mmol/L (136-145) Potassium Level 3.5 mmol/L (3.5-5.1) Chloride Level 97 mmol/L (98-107) Carbon Dioxide Level 25 mmol/L (21-32) Anion Gap 11 (6-14) Blood Urea Nitrogen 8 mg/dL (7-20) Creatinine 0.9 mg/dL (0.6-1.0) Estimated GFR (Cockcroft-Gault) 63.0 Glucose Level 96 mg/dL (70-99) Calcium Level 8.4 mg/dL (8.5-10.1) Microbiology 10/20/16 Blood Culture - Preliminary, Resulted NO GROWTH AFTER 1 DAY Medications Current Medications Sodium Chloride 1,000 ml @ 1,000 mls/hr 1X ONCE IV Last administered on 19:40; Start 10/20/16 at 19:15; Stop 10/20/16 at 20:14; Status DC Hydromorphone HCl (Dilaudid) 0.5 mg 1X ONCE IV Last administered on 10/20/16 19:41; Start 10/20/16 at 19:15; Stop 10/20/16 at 19:16; Status DC Ondansetron HCl (Zofran) 4 mg 1X ONCE IV Last administered on 10/20/16 19:40 ; Start 10/20/16 at 19:15; Stop 10/20/16 at 19:16; Status DC Sodium Chloride 1,000 ml @ 1,000 mls/hr 1X ONCE IV Last administered on 22:29; Start 10/20/16 at 20:00; Stop 10/20/16 at 20:59; Status DC Iohexol (Omnipaque 300 Mg/ml) 75 ml 1X ONCE IV ; Start 10/20/16 at 20:45; Stop 10/20/16 at 20:46; Status DC Info (Do NOT chart on this entry -- for MONITORING) 1 each PRN DAILY PRN MC SEE COMMENTS; Start 10/20/16 at 20:30; Stop 10/22/16 at 20:29 Hydromorphone HCl (Dilaudid) 1 mg PRN Q15MIN PRN IV/SQ PAIN GREATER THAN 3/10 Last administered on 10/20/16 22:55; Start 10/20/16 at 23:00; Stop 10/21/16 at 17:47; Status DC Ceftriaxone Sodium 50 ml @ 100 mls/hr 1X ONCE IV Last administered on 01:41; Start 10/20/16 at 23:30; Stop 10/20/16 at 23:59; Status DC Azithromycin 250 ml @ 250 mls/hr 1X ONCE IV Last administered on 10/21/16 02 :18; Start 10/20/16 at 23:30; Stop 10/21/16 at 00:29; Status DC Acetaminophen/ Hydrocodone Bitart (Lortab 10/325) 1 tab PRN Q4HRS PRN PO PAIN Last administered on 10/22/16 11:58; Start 10/21/16 at 00:45 Oxycodone HCl (OxyCONTIN) 10 mg BID PO Last administered on 10/22/16 08:19; Start 10/21/16 at 09:00 Nicotine (Nicoderm Cq 21mg) 1 patch DAILY TD ; Start 10/21/16 at 09:00 Ceftriaxone Sodium 1 gm/ Sodium Chloride 50 ml @ 100 mls/hr Q24H IV Last administered on 10/22/16 11:49; Start 10/21/16 at 12:00 Azithromycin 500 mg/Sodium Chloride 250 ml @ 250 mls/hr Q24H IV Last administered on 10/22/16 13:05; Start 10/21/16 at 13:00 Hydromorphone HCl (Dilaudid) 0.4 mg PRN Q2HRS PRN IVP PAIN Last administered on 10/22/16 14:18; Start 10/21/16 at 12:00 Diphenhydramine HCl (Benadryl) 25 mg PRN QHS PRN PO INSOMNIA Last administered on 10/21/16 21:11; Start 10/21/16 at 12:15 Quetiapine Fumarate (SEROquel) 25 mg QHS PO Last administered on 10/21/16 21: 10; Start 10/21/16 at 21:00 Citalopram Hydrobromide (CeleXA) 40 mg QHS PO Last administered on 10/21/16 21 :11; Start 10/21/16 at 21:00 Hydrochlorothiazide (Microzide) 12.5 mg QHS PO Last administered on 10/21/16 21:11; Start 10/21/16 at 21:00 Non-Formulary Medication 1 tab PRN QHS PRN PO INSOMNIA; Start 10/21/16 at 12:15 ; Status UNV Albuterol/ Ipratropium (Duoneb) 3 ml RTQID NEB Last administered on 10/22/16 11:40; Start 10/21/16 at 16:00 Active Scripts Active Reported Melatonin 3 Mg Tablet 1 Tab PO PRN QHS PRN Seroquel (Quetiapine Fumarate) 25 Mg Tablet 1 Tab PO QHS Benadryl (Diphenhydramine Hcl) 25 Mg Capsule 1 Cap PO PRN QHS PRN Hydrochlorothiazide Tablet (Hydrochlorothiazide) 12.5 Mg Tablet 1 Tab PO QHS Lexapro (Escitalopram Oxalate) 20 Mg Tablet 1 Tab PO QHS Hydrocodone-Apap 10-325 (Hydrocodone Bit/Acetaminophen) 1 Each Tablet 1 Tab PO PRN Q4HRS Oxycontin (Oxycodone HCl) 10 Mg Tab.er.12h 10 Mg PO BID Vitals/I & O Vital Sign - Last 24 Hours 10/21/16 10/21/16 10/21/16 10/21/16 16:28 17:00 19:23 19:30 Temp 98.1 98.1 Pulse 96 Resp 21 B/P (MAP) 96/52 (67) Pulse Ox 96 93 95 O2 Delivery Nasal Cannula Nasal Cannula Nasal Cannula Nasal Cannula O2 Flow Rate 2.0 2.0 2.0 10/21/16 10/21/16 10/21/16 10/21/16 19:34 20:00 20:04 21:11 Resp 16 16 16 O2 Delivery Nasal Cannula Nasal Cannula Room Air O2 Flow Rate 3.0 3.0 10/21/16 10/21/16 10/22/1627/17 23:10 23:48 00:10 01:11 Temp 98.4 98.4 Pulse 113 Resp 12 22 B/P (MAP) 144/62 (89) Pulse Ox 91 O2 Delivery Nasal Cannula Nasal Cannula Nasal Cannula Nasal Cannula O2 Flow Rate 3.0 2.0 3.0 3.0 10/22/16 10/22/16 10/22/16 10/22/16 01:37 03:00 05:43 06:13 Temp 97.4 97.4 Pulse 99 Resp 16 22 24 B/P (MAP) 110/62 (78) Pulse Ox 94 O2 Delivery Nasal Cannula Nasal Cannula Nasal Cannula Nasal Cannula O2 Flow Rate 3.0 2.0 3.0 3.0 10/22/16 10/22/16 10/22/16 10/22/16 06:27 07:00 07:20 08:00 Temp 100.0 100.0 Pulse 76 Resp 20 22 B/P (MAP) 102/64 (77) Pulse Ox 90 O2 Delivery Nasal Cannula Nasal Cannula Nasal Cannula Nasal Cannula O2 Flow Rate 3.0 2.0 3.0 3.0 10/22/16 10/22/16 10/22/16 08:19 10:56 11:41 Temp 98.5 98.5 Pulse 67 Resp 22 B/P (MAP) 88/54 (65) Pulse Ox 92 92 O2 Delivery Nasal Cannula Nasal Cannula Nasal Cannula O2 Flow Rate 2.0 3.0 Intake and Output 10/21/16 10/21/16 10/22/16 15:00 23:00 07:00 Intake Total 440 ml 900 ml 800 ml Output Total 900 ml Balance -460 ml 900 ml 800 ml KYLE RYAN III DO Oct 22, 2016 15:17
[2016-10-22 19:47] VITALS: BP 154/74
[2016-10-22] MEDS: CITALOPRAM 20 MG TABLET. PO SCH (20:33)
[2016-10-22] MEDS: hydroCHLOROthiazide 12.5 MG CAPSULE PO SCH (20:33)
[2016-10-22] MEDS: QUEtiapine 25 MG TABLET. PO SCH (20:33)
[2016-10-22 22:58] VITALS: BP 149/89
[2016-10-23] VITALS (10 sets, daily range): BP systolic 114–201; BP diastolic 63–103
[2016-10-23] MEDS: HYDROmorphone 2 MG/ML VIAL IVP PRN (01:22)
[2016-10-23 04:36] LABS: BASO # 0.1 x10^3/uL (0.0-0.2); BASO % 1 % (0-3); EOS % 3 % (0-3); HEMATOCRIT 28.7 % (36.0-47.0); HEMOGLOBIN 9.7 g/dL (12.0-15.5); LYMPH # 2.7 x10^3/uL (1.0-4.8); LYMPH % 22 % (24-48); MEAN CORPUSCULAR HEMOGLOBIN 32 pg (25-35); MEAN CORPUSCULAR HGB CONC 34 g/dL (31-37); MEAN CORPUSCULAR VOLUME 96 fL (79-100); MONO % 9 % (0-9); NEUT % 67 % (31-73); PLATELET COUNT 267 x10^3/uL (140-400); RED CELL DISTRIBUTION WIDTH 13.3 % (11.5-14.5); WHITE BLOOD COUNT 12.6 x10^3/uL (4.0-11.0)
[2016-10-23 04:46] LABS: CALCIUM 8.3 mg/dL (8.5-10.1); CREATININE 0.8 mg/dL (0.6-1.0); GFR 72.2; POTASSIUM 3.3 mmol/L (3.5-5.1)
[2016-10-23] MEDS: HYDROcodone/APAP 10/325 1 TAB TABLET PO PRN ×3 (05:48→19:35)
[2016-10-23] MEDS ORDERED: POTASSIUM CHLORIDE 20 MEQ TABLET.ER. PO ONE (07:00)
[2016-10-23] MEDS: IPRATRPIUM/ALBUTEROL 0.5/2.5MG 3 ML NEBU. NEB SCH ×5 (07:53→19:47)
[2016-10-23] MEDS: oxyCODONE ER 10 MG TAB.ER.12H PO SCH ×2 (08:29→21:37)
[2016-10-23] MEDS: NICOTINE 21MG PATCH. TD SCH (08:30)
[2016-10-23 08:47] LABS: PROTHROMBIN TIME PATIENT 12.8 SEC (11.7-14.0)
--- NOTE | 2016-10-23 09:15 | PDOC ---
PULMONARY PROGRESS NOTES Subjective Pt with no increase soa s/p biopsy Vitals Vital Signs Date Time Temp Pulse Resp B/P (MAP) Pulse Ox O2 Delivery O2 Flow Rate FiO2 10/23/16 08:29 92 Nasal Cannula 3.0 10/23/16 07:20 98.3 100 18 125/81 (96) 98.3 ROS: No Nausea, No Chest Pain, No Abdominal Pain, No Increase Cough General: Alert HEENT: Other (nc at perrl nose clear, poor dentition) Lungs: Crackles Cardiovascular: S1, S2 Abdomen: Soft, Non-tender Neuro Exam: Alert, Oriented Extremities: No Edema Skin: Warm Labs Laboratory Tests Test 10/21/16 11:50 10/21/16 13:45 10/22/16 07:15 10/23/16 03:35 Troponin I Quantitative 0.033 ng/mL (0.000-0.055) C-Reactive Protein, Quantitative 285.8 mg/L (0-3.3) Body Fluid Culture (LAB) (.) Urine Opiates Screen Pos (NEG) Urine Methadone Screen Neg (NEG) Urine Barbiturates Neg (NEG) Urine Phencyclidine Screen Neg (NEG) Urine Amphetamine/Methamphetamine Neg (NEG) Urine Benzodiazepines Screen Neg (NEG) Urine Cocaine Screen Neg (NEG) Urine Cannabinoids Screen Pos (NEG) Urine Ethyl Alcohol Neg (NEG) Urine Legionella Antigen Negative (Negative) Streptococcus pneumoniae Antigen Negative (Negative) Organism Identification (LAB) (.) JESSICA Specimen Source Urine (.) White Blood Count 18.2 x10^3/uL (4.0-11.0) 12.6 x10^3/uL (4.0-11.0) Red Blood Count 3.38 x10^6/uL (3.50-5.40) 3.00 x10^6/uL (3.50-5.40) Hemoglobin 10.9 g/dL (12.0-15.5) 9.7 g/dL (12.0-15.5) Hematocrit 32.3 % (36.0-47.0) 28.7 % (36.0-47.0) Mean Corpuscular Volume 95 fL (79-100) 96 fL (79-100) Mean Corpuscular Hemoglobin 32 pg (25-35) 32 pg (25-35) Mean Corpuscular Hemoglobin Concent 34 g/dL (31-37) 34 g/dL (31-37) Red Cell Distribution Width 13.6 % (11.5-14.5) 13.3 % (11.5-14.5) Platelet Count 266 x10^3/uL (140-400) 267 x10^3/uL (140-400) Neutrophils (%) (Auto) 82 % (31-73) 67 % (31-73) Lymphocytes (%) (Auto) 10 % (24-48) 22 % (24-48) Monocytes (%) (Auto) 6 % (0-9) 9 % (0-9) Eosinophils (%) (Auto) 1 % (0-3) 3 % (0-3) Basophils (%) (Auto) 0 % (0-3) 1 % (0-3) Neutrophils # (Auto) 14.9 x10^3uL (1.8-7.7) 8.4 x10^3uL (1.8-7.7) Lymphocytes # (Auto) 1.8 x10^3/uL (1.0-4.8) 2.7 x10^3/uL (1.0-4.8) Monocytes # (Auto) 1.2 x10^3/uL (0.0-1.1) 1.1 x10^3/uL (0.0-1.1) Eosinophils # (Auto) 0.2 x10^3/uL (0.0-0.7) 0.3 x10^3/uL (0.0-0.7) Basophils # (Auto) 0.0 x10^3/uL (0.0-0.2) 0.1 x10^3/uL (0.0-0.2) Sodium Level 133 mmol/L (136-145) 133 mmol/L (136-145) Potassium Level 3.5 mmol/L (3.5-5.1) 3.3 mmol/L (3.5-5.1) Chloride Level 97 mmol/L (98-107) 97 mmol/L (98-107) Carbon Dioxide Level 25 mmol/L (21-32) 27 mmol/L (21-32) Anion Gap 11 (6-14) 9 (6-14) Blood Urea Nitrogen 8 mg/dL (7-20) 8 mg/dL (7-20) Creatinine 0.9 mg/dL (0.6-1.0) 0.8 mg/dL (0.6-1.0) Estimated GFR (Cockcroft-Gault) 63.0 72.2 Glucose Level 96 mg/dL (70-99) 82 mg/dL (70-99) Calcium Level 8.4 mg/dL (8.5-10.1) 8.3 mg/dL (8.5-10.1) Test 10/23/16 08:27 Prothrombin Time 12.8 SEC (11.7-14.0) Prothromb Time International Ratio 1.0 (0.8-1.1) Laboratory Tests Test 10/23/16 03:35 10/23/16 08:27 White Blood Count 12.6 x10^3/uL (4.0-11.0) Red Blood Count 3.00 x10^6/uL (3.50-5.40) Hemoglobin 9.7 g/dL (12.0-15.5) Hematocrit 28.7 % (36.0-47.0) Mean Corpuscular Volume 96 fL (79-100) Mean Corpuscular Hemoglobin 32 pg (25-35) Mean Corpuscular Hemoglobin Concent 34 g/dL (31-37) Red Cell Distribution Width 13.3 % (11.5-14.5) Platelet Count 267 x10^3/uL (140-400) Neutrophils (%) (Auto) 67 % (31-73) Lymphocytes (%) (Auto) 22 % (24-48) Monocytes (%) (Auto) 9 % (0-9) Eosinophils (%) (Auto) 3 % (0-3) Basophils (%) (Auto) 1 % (0-3) Neutrophils # (Auto) 8.4 x10^3uL (1.8-7.7) Lymphocytes # (Auto) 2.7 x10^3/uL (1.0-4.8) Monocytes # (Auto) 1.1 x10^3/uL (0.0-1.1) Eosinophils # (Auto) 0.3 x10^3/uL (0.0-0.7) Basophils # (Auto) 0.1 x10^3/uL (0.0-0.2) Sodium Level 133 mmol/L (136-145) Potassium Level 3.3 mmol/L (3.5-5.1) Chloride Level 97 mmol/L (98-107) Carbon Dioxide Level 27 mmol/L (21-32) Anion Gap 9 (6-14) Blood Urea Nitrogen 8 mg/dL (7-20) Creatinine 0.8 mg/dL (0.6-1.0) Estimated GFR (Cockcroft-Gault) 72.2 Glucose Level 82 mg/dL (70-99) Calcium Level 8.3 mg/dL (8.5-10.1) Prothrombin Time 12.8 SEC (11.7-14.0) Prothromb Time International Ratio 1.0 (0.8-1.1) Medications Active Scripts Medications Dose Route/Sig Max Daily Dose Days Date Category Melatonin 3 Mg Tablet 1 Tab PO PRN QHS PRN 10/21/16 Reported Seroquel (Quetiapine Fumarate) 25 Mg Tablet 1 Tab PO QHS 10/21/16 Reported Benadryl (Diphenhydramine Hcl) 25 Mg Capsule 1 Cap PO PRN QHS PRN 10/21/16 Reported Hydrochlorothiazide Tablet (Hydrochlorothiazide) 12.5 Mg Tablet 1 Tab PO QHS 10/21/16 Reported Lexapro (Escitalopram Oxalate) 20 Mg Tablet 1 Tab PO QHS 10/21/16 Reported Hydrocodone-Apap 10-325 (Hydrocodone Bit/Acetaminophen) 1 Each Tablet 1 Tab PO PRN Q4HRS 10/21/16 Reported Oxycontin (Oxycodone HCl) 10 Mg Tab.er.12h 10 Mg PO BID 10/21/16 Reported Impression . 1. Acute respiratory failure, multifactorial in etiology. 2. Abnormal CT of the chest with cavitary pulmonary nodules, S/P Biopsy 3. Poor dentition. 4. Acute kidney injury. 5. Hyponatremia. 6. Hypokalemia. 7. Leukocytosis. 8. Right lower lobe infiltrate, probably pneumonia. 9. Tobacco habituation. 10. Emphysema/chronic obstructive pulmonary disease. 11. +uds Plan . Home in next 24-48 hours 6 min walk Follow up on biopsy Continue anitbx follow up on labs rule out autoimmune dz as outpt JUDE LAMAR MD Oct 23, 2016 09:15
[2016-10-23] MEDS ORDERED: LIDOCAINE 1% / SOD BICARB 8.4% 20 ML VIAL. IJ ONE ×2 (10:05→12:00)
[2016-10-23] MEDS ORDERED: fentaNYL PF VIAL 100 MCG/2 ML VIAL ONE (11:40)
[2016-10-23] MEDS ORDERED: MIDAZOLAM HCL/PF 2 MG/2 ML VIAL. ONE (11:40)
[2016-10-23] MEDS ORDERED: MIDAZOLAM HCL/PF 2 MG/2 ML VIAL. IV ONE (12:00)
[2016-10-23] MEDS ORDERED: fentaNYL PF VIAL 100 MCG/2 ML VIAL IV ONE (12:00)
--- NOTE | 2016-10-23 12:10 | PDOC ---
PROGRESS NOTES Chief Complaint Chief Complaint CC: Dyspnea PNU Fibromyalgia Depression History of Present Illness History of Present Illness Pt was experiencing more dyspnea overnight and had to be titrated up to 5L O2. Pt still experiencing SOA and is currently on 3L of O2. One blood Cx came back positive, likely from contaminate. Pt notified me today regarding tooth pain that she reported is from an abscess. Vitals Vitals Vital Signs Date Time Temp Pulse Resp B/P (MAP) Pulse Ox O2 Delivery O2 Flow Rate FiO2 10/23/16 08:29 92 Nasal Cannula 3.0 10/23/16 07:20 98.3 100 18 125/81 (96) 98.3 Physical Exam General: Alert, Oriented X3, Cooperative, mild distress Heart: Regular rate, No murmurs Lungs: Crackles Abdomen: Normal bowel sounds, Soft Extremities: No clubbing, No cyanosis Skin: No rashes, No breakdown Labs LABS Laboratory Tests Test 10/23/16 03:35 10/23/16 08:27 White Blood Count 12.6 x10^3/uL (4.0-11.0) Red Blood Count 3.00 x10^6/uL (3.50-5.40) Hemoglobin 9.7 g/dL (12.0-15.5) Hematocrit 28.7 % (36.0-47.0) Mean Corpuscular Volume 96 fL (79-100) Mean Corpuscular Hemoglobin 32 pg (25-35) Mean Corpuscular Hemoglobin Concent 34 g/dL (31-37) Red Cell Distribution Width 13.3 % (11.5-14.5) Platelet Count 267 x10^3/uL (140-400) Neutrophils (%) (Auto) 67 % (31-73) Lymphocytes (%) (Auto) 22 % (24-48) Monocytes (%) (Auto) 9 % (0-9) Eosinophils (%) (Auto) 3 % (0-3) Basophils (%) (Auto) 1 % (0-3) Neutrophils # (Auto) 8.4 x10^3uL (1.8-7.7) Lymphocytes # (Auto) 2.7 x10^3/uL (1.0-4.8) Monocytes # (Auto) 1.1 x10^3/uL (0.0-1.1) Eosinophils # (Auto) 0.3 x10^3/uL (0.0-0.7) Basophils # (Auto) 0.1 x10^3/uL (0.0-0.2) Sodium Level 133 mmol/L (136-145) Potassium Level 3.3 mmol/L (3.5-5.1) Chloride Level 97 mmol/L (98-107) Carbon Dioxide Level 27 mmol/L (21-32) Anion Gap 9 (6-14) Blood Urea Nitrogen 8 mg/dL (7-20) Creatinine 0.8 mg/dL (0.6-1.0) Estimated GFR (Cockcroft-Gault) 72.2 Glucose Level 82 mg/dL (70-99) Calcium Level 8.3 mg/dL (8.5-10.1) Prothrombin Time 12.8 SEC (11.7-14.0) Prothromb Time International Ratio 1.0 (0.8-1.1) Review of Systems Review of Systems Complains of dyspnea Complains of tooth pain from an abscess Assessment and Plan Assessmemt and Plan Problems Medical Problems: (1) Community acquired pneumonia Status: Acute CC: Dyspnea PNU: Likely cause of dyspnea, CXR showed consolidation, titrate O2 to FiO2 >95% , continue Rocephin and azithromycin, continue breathing tx as per Dr. Up, appreciate the assistance Lung nodule: Found on periphery of lung, IR has been consulted for CT Bx, appreciate the assistance Dental abscess: Consulted Dr. Judge, appreciate the assistance Fibromyalgia: Continue HAT RENOVATOR oxycodone, Lortab, and Dilaudid Depression: Continue HAT RENOVATOR quetiapine and citalopram Problems: Comment Review of Relevant I have reviewed the following items pat (where applicable) has been applied. Labs Laboratory Tests Test 10/21/16 13:45 10/22/16 07:15 10/23/16 03:35 10/23/16 08:27 Body Fluid Culture (LAB) (.) Urine Opiates Screen Pos (NEG) Urine Methadone Screen Neg (NEG) Urine Barbiturates Neg (NEG) Urine Phencyclidine Screen Neg (NEG) Urine Amphetamine/Methamphetamine Neg (NEG) Urine Benzodiazepines Screen Neg (NEG) Urine Cocaine Screen Neg (NEG) Urine Cannabinoids Screen Pos (NEG) Urine Ethyl Alcohol Neg (NEG) Urine Legionella Antigen Negative (Negative) Streptococcus pneumoniae Antigen Negative (Negative) Organism Identification (LAB) (.) JESSICA Specimen Source Urine (.) White Blood Count 18.2 x10^3/uL (4.0-11.0) 12.6 x10^3/uL (4.0-11.0) Red Blood Count 3.38 x10^6/uL (3.50-5.40) 3.00 x10^6/uL (3.50-5.40) Hemoglobin 10.9 g/dL (12.0-15.5) 9.7 g/dL (12.0-15.5) Hematocrit 32.3 % (36.0-47.0) 28.7 % (36.0-47.0) Mean Corpuscular Volume 95 fL (79-100) 96 fL (79-100) Mean Corpuscular Hemoglobin 32 pg (25-35) 32 pg (25-35) Mean Corpuscular Hemoglobin Concent 34 g/dL (31-37) 34 g/dL (31-37) Red Cell Distribution Width 13.6 % (11.5-14.5) 13.3 % (11.5-14.5) Platelet Count 266 x10^3/uL (140-400) 267 x10^3/uL (140-400) Neutrophils (%) (Auto) 82 % (31-73) 67 % (31-73) Lymphocytes (%) (Auto) 10 % (24-48) 22 % (24-48) Monocytes (%) (Auto) 6 % (0-9) 9 % (0-9) Eosinophils (%) (Auto) 1 % (0-3) 3 % (0-3) Basophils (%) (Auto) 0 % (0-3) 1 % (0-3) Neutrophils # (Auto) 14.9 x10^3uL (1.8-7.7) 8.4 x10^3uL (1.8-7.7) Lymphocytes # (Auto) 1.8 x10^3/uL (1.0-4.8) 2.7 x10^3/uL (1.0-4.8) Monocytes # (Auto) 1.2 x10^3/uL (0.0-1.1) 1.1 x10^3/uL (0.0-1.1) Eosinophils # (Auto) 0.2 x10^3/uL (0.0-0.7) 0.3 x10^3/uL (0.0-0.7) Basophils # (Auto) 0.0 x10^3/uL (0.0-0.2) 0.1 x10^3/uL (0.0-0.2) Sodium Level 133 mmol/L (136-145) 133 mmol/L (136-145) Potassium Level 3.5 mmol/L (3.5-5.1) 3.3 mmol/L (3.5-5.1) Chloride Level 97 mmol/L (98-107) 97 mmol/L (98-107) Carbon Dioxide Level 25 mmol/L (21-32) 27 mmol/L (21-32) Anion Gap 11 (6-14) 9 (6-14) Blood Urea Nitrogen 8 mg/dL (7-20) 8 mg/dL (7-20) Creatinine 0.9 mg/dL (0.6-1.0) 0.8 mg/dL (0.6-1.0) Estimated GFR (Cockcroft-Gault) 63.0 72.2 Glucose Level 96 mg/dL (70-99) 82 mg/dL (70-99) Calcium Level 8.4 mg/dL (8.5-10.1) 8.3 mg/dL (8.5-10.1) Prothrombin Time 12.8 SEC (11.7-14.0) Prothromb Time International Ratio 1.0 (0.8-1.1) Laboratory Tests Test 10/23/16 03:35 10/23/16 08:27 White Blood Count 12.6 x10^3/uL (4.0-11.0) Red Blood Count 3.00 x10^6/uL (3.50-5.40) Hemoglobin 9.7 g/dL (12.0-15.5) Hematocrit 28.7 % (36.0-47.0) Mean Corpuscular Volume 96 fL (79-100) Mean Corpuscular Hemoglobin 32 pg (25-35) Mean Corpuscular Hemoglobin Concent 34 g/dL (31-37) Red Cell Distribution Width 13.3 % (11.5-14.5) Platelet Count 267 x10^3/uL (140-400) Neutrophils (%) (Auto) 67 % (31-73) Lymphocytes (%) (Auto) 22 % (24-48) Monocytes (%) (Auto) 9 % (0-9) Eosinophils (%) (Auto) 3 % (0-3) Basophils (%) (Auto) 1 % (0-3) Neutrophils # (Auto) 8.4 x10^3uL (1.8-7.7) Lymphocytes # (Auto) 2.7 x10^3/uL (1.0-4.8) Monocytes # (Auto) 1.1 x10^3/uL (0.0-1.1) Eosinophils # (Auto) 0.3 x10^3/uL (0.0-0.7) Basophils # (Auto) 0.1 x10^3/uL (0.0-0.2) Sodium Level 133 mmol/L (136-145) Potassium Level 3.3 mmol/L (3.5-5.1) Chloride Level 97 mmol/L (98-107) Carbon Dioxide Level 27 mmol/L (21-32) Anion Gap 9 (6-14) Blood Urea Nitrogen 8 mg/dL (7-20) Creatinine 0.8 mg/dL (0.6-1.0) Estimated GFR (Cockcroft-Gault) 72.2 Glucose Level 82 mg/dL (70-99) Calcium Level 8.3 mg/dL (8.5-10.1) Prothrombin Time 12.8 SEC (11.7-14.0) Prothromb Time International Ratio 1.0 (0.8-1.1) Microbiology 10/22/16 Blood Culture - Final, Complete Medications Current Medications Sodium Chloride 1,000 ml @ 1,000 mls/hr 1X ONCE IV Last administered on 19:40; Start 10/20/16 at 19:15; Stop 10/20/16 at 20:14; Status DC Hydromorphone HCl (Dilaudid) 0.5 mg 1X ONCE IV Last administered on 10/20/16 19:41; Start 10/20/16 at 19:15; Stop 10/20/16 at 19:16; Status DC Ondansetron HCl (Zofran) 4 mg 1X ONCE IV Last administered on 10/20/16 19:40 ; Start 10/20/16 at 19:15; Stop 10/20/16 at 19:16; Status DC Sodium Chloride 1,000 ml @ 1,000 mls/hr 1X ONCE IV Last administered on 22:29; Start 10/20/16 at 20:00; Stop 10/20/16 at 20:59; Status DC Iohexol (Omnipaque 300 Mg/ml) 75 ml 1X ONCE IV ; Start 10/20/16 at 20:45; Stop 10/20/16 at 20:46; Status DC Info (Do NOT chart on this entry -- for MONITORING) 1 each PRN DAILY PRN MC SEE COMMENTS; Start 10/20/16 at 20:30; Stop 10/22/16 at 20:29; Status DC Hydromorphone HCl (Dilaudid) 1 mg PRN Q15MIN PRN IV/SQ PAIN GREATER THAN 3/10 Last administered on 10/20/16 22:55; Start 10/20/16 at 23:00; Stop 10/21/16 at 17:47; Status DC Ceftriaxone Sodium 50 ml @ 100 mls/hr 1X ONCE IV Last administered on 01:41; Start 10/20/16 at 23:30; Stop 10/20/16 at 23:59; Status DC Azithromycin 250 ml @ 250 mls/hr 1X ONCE IV Last administered on 10/21/16 02 :18; Start 10/20/16 at 23:30; Stop 10/21/16 at 00:29; Status DC Acetaminophen/ Hydrocodone Bitart (Lortab 10/325) 1 tab PRN Q4HRS PRN PO PAIN Last administered on 10/23/16 05:48; Start 10/21/16 at 00:45 Oxycodone HCl (OxyCONTIN) 10 mg BID PO Last administered on 10/23/16 08:29; Start 10/21/16 at 09:00 Nicotine (Nicoderm Cq 21mg) 1 patch DAILY TD ; Start 10/21/16 at 09:00 Ceftriaxone Sodium 1 gm/ Sodium Chloride 50 ml @ 100 mls/hr Q24H IV Last administered on 10/22/16 11:49; Start 10/21/16 at 12:00 Azithromycin 500 mg/Sodium Chloride 250 ml @ 250 mls/hr Q24H IV Last administered on 10/22/16 13:05; Start 10/21/16 at 13:00 Hydromorphone HCl (Dilaudid) 0.4 mg PRN Q2HRS PRN IVP PAIN Last administered on 10/23/16 01:22; Start 10/21/16 at 12:00 Diphenhydramine HCl (Benadryl) 25 mg PRN QHS PRN PO INSOMNIA Last administered on 10/21/16 21:11; Start 10/21/16 at 12:15 Quetiapine Fumarate (SEROquel) 25 mg QHS PO Last administered on 10/22/16 20: 33; Start 10/21/16 at 21:00 Citalopram Hydrobromide (CeleXA) 40 mg QHS PO Last administered on 10/22/16 20 :33; Start 10/21/16 at 21:00 Hydrochlorothiazide (Microzide) 12.5 mg QHS PO Last administered on 10/22/16 20:33; Start 10/21/16 at 21:00 Non-Formulary Medication 1 tab PRN QHS PRN PO INSOMNIA; Start 10/21/16 at 12:15 ; Status UNV Albuterol/ Ipratropium (Duoneb) 3 ml RTQID NEB Last administered on 10/23/16 07:53; Start 10/21/16 at 16:00 Potassium Chloride (Klor-Con) 40 meq 1X ONCE PO Last administered on 08:28; Start 10/23/16 at 07:00; Stop 10/23/16 at 07:03; Status DC Lidocaine/Sodium Bicarbonate (Buffered Lidocaine 1%) 20 ml STK-MED ONCE IJ ; Start 10/23/16 at 10:05; Stop 10/23/16 at 10:06; Status DC Midazolam HCl (Versed) 2 mg STK-MED ONCE .ROUTE ; Start 10/23/16 at 11:40; Stop 10/23/16 at 11:41; Status DC Fentanyl Citrate (Fentanyl 2ml Vial) 100 mcg STK-MED ONCE .ROUTE ; Start at 11:40; Stop 10/23/16 at 11:41; Status DC Lidocaine/Sodium Bicarbonate (Buffered Lidocaine 1%) 20 ml 1X ONCE IJ ; Start 10/23/16 at 12:00; Stop 10/23/16 at 12:01; Status DC Midazolam HCl (Versed) 2 mg 1X ONCE IV ; Start 10/23/16 at 12:00; Stop at 12:01; Status DC Fentanyl Citrate (Fentanyl 2ml Vial) 100 mcg 1X ONCE IV ; Start 10/23/16 at 12: 00; Stop 10/23/16 at 12:01; Status DC Active Scripts Active Reported Melatonin 3 Mg Tablet 1 Tab PO PRN QHS PRN Seroquel (Quetiapine Fumarate) 25 Mg Tablet 1 Tab PO QHS Benadryl (Diphenhydramine Hcl) 25 Mg Capsule 1 Cap PO PRN QHS PRN Hydrochlorothiazide Tablet (Hydrochlorothiazide) 12.5 Mg Tablet 1 Tab PO QHS Lexapro (Escitalopram Oxalate) 20 Mg Tablet 1 Tab PO QHS Hydrocodone-Apap 10-325 (Hydrocodone Bit/Acetaminophen) 1 Each Tablet 1 Tab PO PRN Q4HRS Oxycontin (Oxycodone HCl) 10 Mg Tab.er.12h 10 Mg PO BID Vitals/I & O Vital Sign - Last 24 Hours 10/22/16 10/22/16 10/22/16 10/22/16 15:01 15:12 19:30 19:31 Temp 98.3 98.3 Pulse 75 Resp 22 B/P (MAP) 96/64 (75) Pulse Ox 92 92 92 O2 Delivery Nasal Cannula Nasal Cannula Nasal Cannula Nasal Cannula O2 Flow Rate 2.0 3.0 3.0 3.0 10/22/16 10/22/16 10/22/16 10/22/16 19:47 20:12 20:34 22:58 Temp 98.3 98.4 98.3 98.4 Pulse 70 116 Resp 16 18 B/P (MAP) 154/74 (100) 149/89 (109) Pulse Ox 92 92 93 O2 Delivery Room Air Nasal Cannula Nasal Cannula Nasal Cannula O2 Flow Rate 3.0 3.0 3.0 10/23/16 10/23/16 10/23/16 10/23/16 03:19 05:48 07:20 07:53 Temp 99.9 98.3 99.9 98.3 Pulse 110 100 Resp 14 18 B/P (MAP) 118/64 (82) 125/81 (96) Pulse Ox 90 92 90 92 O2 Delivery Nasal Cannula Nasal Cannula Nasal Cannula Nasal Cannula O2 Flow Rate 5.0 4.0 5.0 3.0 10/23/16 10/23/16 08:00 08:29 Pulse Ox 92 O2 Delivery Nasal Cannula Nasal Cannula O2 Flow Rate 3.0 3.0 Intake and Output 10/22/16 10/22/16 10/23/16 15:00 23:00 07:00 Intake Total 480 ml 750 ml Output Total 200 ml Balance 480 ml 550 ml KYLE RYAN III DO Oct 23, 2016 12:10
--- NOTE | 2016-10-23 12:53 | PDOC ---
MODERATE SEDATION ASSESSMENT RISKS/ALTERNATIVES Risks/Alternatives Risks and alternatives of this type of sedation and procedure discussed with: RISK/ALTERNATIVES: Patient H & P ON CHART H & P H & P on chart and reviewed for co-morbid conditions and appropriate labs. H&P ON CHART: Yes STATUS PREG STATUS ASSESSED: Yes MEDS/ALLERGIES REVIEWED Meds/Allergies Reviewed Medications and Allergies including time and route of recently administered narcotics and sedatives. MEDS/ALLERGIES REVIEWED: Yes ASA RATING ASA RATING: II AIRWAY ASSESSMENT Airway Assessment Airway patency, oral function limitations, presence of caps, crowns, dentures, partials, and ability to extend neck assessed. AIRWAY ASSESSMENT: Yes MALLAMPATI SCORE MALLAMPATI SCORE: II PRE-SEDATION ASSESSMENT PRE-SEDATION ASSESSMENT: Yes DAVID ALEMAN MD Oct 23, 2016 12:53
--- NOTE | 2016-10-23 12:54 | PDOC ---
BRIEF OPERATIVE NOTE Pre-Op Diagnosis multiple left lung nodules Post-Op Diagnosis same Procedure Performed CT left lung biopsy Surgeon Gila Anesthesia Type: Conscious Sedation Specimens Obtained 4 x 20g cores divided in formalin and saline for microbiological analysis Complications No immediate DAVID ALEMAN MD Oct 23, 2016 12:54
--- NOTE | 2016-10-23 15:03 | RAD ---
Procedure: CT-guided left lung biopsy Clinical Indication: 65-year-old with multiple small cavitary lung nodules Sedation: Conscious sedation was administered for 22 minutes. The patient was monitored by a qualified independent observer throughout the time of sedation. Please refer to the medical record for exact doses of medications utilized to achieve moderate sedation. Antibiotics: None Contrast: None Sterility: The procedure was performed in its entirety using appropriate elements of sterile technique. Consent: The procedure was explained in its entirety to the patient or the patients designated independent sales representative by a member of the treatment team, including a discussion of the risks, benefits and commonly accepted alternatives to the procedure, as well as the expected consequences of no therapy whatsoever. Discussion of the risks included, but was not limited to, those that are most frequent and those that are rare but possibly severe or life-threatening, as well as the possibility of unforeseen complications. Technique and Findings: Following informed consent, the patient was prepped and draped in usual sterile fashion. Preliminary CT scan of the area of interest was performed. 1% lidocaine was used to achieve local anesthesia. Under periodic CT surveillance, a 19-gauge needle guide was advanced towards a dominant pleural-based nodule and 5 x 20-gauge core biopsy specimens were obtained and divided between formalin and saline for microbiologic analysis. A blood patch was applied as the needle guide was removed and hemostasis was achieved with manual compression. Complications: No clinically significant immediate complications. Some parenchymal hemorrhage is noted on post procedural CT scan. Impression: 1. CT-guided left lung biopsy as described PQRS Compliance Statement: One or more of the following individualized dose reduction techniques were utilized for this examination: 1. Automated exposure control 2. Adjustment of the mA and/or kV according to patient size 3. Use of iterative reconstruction technique
[2016-10-23] MEDS: AZITHROMYCIN 500 MG in IV NORMAL SALINE 250ML 250 ML IV SCH (15:34)
--- NOTE | 2016-10-23 15:41 | RAD ---
Exam performed: One view chest. History: Status post left lung biopsy clip. Date of service: 10/23/16. Comparison: Single view chest from 10/20/[address] images during left lung biopsy from earlier today Findings: Single view chest demonstrates development of opacity in the left upper lobe, likely hemorrhage from recent biopsy. Small right and tiny left pleural effusion is seen. There is no definite pneumothorax. Impression: Development of opacity likely hemorrhage in the left lobe. Small right and tiny left pleural effusion. No pneumothorax
--- NOTE | 2016-10-23 18:05 | CARD ---
APPROVED REPORT EXAM: Two-dimensional and M-mode echocardiogram with Doppler and color Doppler. Other Information Quality : GoodHR: 125bpm Rhythm : Tachycardia INDICATION Chest Pain RISK FACTORS Smoking 2D DIMENSIONS RVDd3.2 (2.9-3.5cm)Left Atrium(2D)3.3 (1.6-4.0cm) IVSd1.0 (0.7-1.1cm)Aortic Root(2D)2.9 (2.0-3.7cm) LVDd5.0 (3.9-5.9cm)LVOT Diameter2.2 (1.8-2.4cm) PWd1.0 (0.7-1.1cm)LVDs3.3 (2.5-4.0cm) FS (%) 32.6 %SV70.2 ml LVEF(%)60.0 (>50%) Aortic Valve AoV Peak Keegan.292.4cm/sAoV VTI50.4cm AO Peak GR.34.2mmHgLVOT Peak Keegan.116.9cm/s AO Mean GR.17mmHgAVA (VMAX)1.48cm2 Mitral Valve MV E Peak Gr.9mmHgMV E Mean Gr.6mmHg Pulmonary Vein S1 Pimlwqly11.5cm/sD2 Mycxirjy87.3cm/s PVa [id number] LEFT VENTRICLE The left ventricle is normal size. There is normal left ventricular wall thickness. The left ventricu lar systolic function is normal and the ejection fraction is within normal range. The Ejection Fracti on is 60 %. There is normal LV segmental wall motion. Tachycardia noted, unable to assess left ventri cular diastolic function adequately. RIGHT VENTRICLE The right ventricle is normal size. There is normal right ventricular wall thickness. The right ventr icular systolic function is normal. ATRIA The left atrium is mildly dilated. The right atrium size is normal. The interatrial septum is intact with no evidence for an atrial septal defect or patent foramen ovale as noted on 2-D or Doppler imagi ng. AORTIC VALVE The aortic valve is severely sclerotic. The aortic valve is trileaflet. Doppler and Color Flow reveal ed no significant aortic regurgitation. There is mild valvular aortic stenosis. Calculated aortic rayne ve area is 1.7 cm2 with maximum pressure gradient of 50 mmHg and mean pressure gradient of 23 mmHg. T he dimensionless index is .46 consistent with mild aortic valve stenosis. MITRAL VALVE The mitral valve leaflets are mildly thickened. There is mitral valve prolapse. There is no mitral v alve stenosis. Doppler and Color Flow revealed moderate to severe mitral regurgitation. TRICUSPID VALVE Doppler and Color Flow revealed no tricuspid valve regurgitation noted. Unable to determine pulmonary artery pressure at exam time. PULMONIC VALVE The pulmonic valve is not visualized, unable to assess. GREAT VESSELS The aortic root is normal in size. The ascending aorta is normal in size. The pulmonary artery is nor mal. The IVC is normal in size and collapses >50% with inspiration. PERICARDIAL EFFUSION There is small right pleural effusion. There is no evidence of significant pericardial effusion. Critical Notification Critical Value: No <Conclusion> The left ventricular systolic function is normal and the ejection fraction is within normal range. The Ejection Fraction is 60 %. Tachycardia noted, unable to assess left ventricular diastolic function adequately. The right atrium size is normal. The left atrium is mildly dilated. There is mild valvular aortic stenosis. Calculated aortic valve area is 1.7 cm2 with maximum pressure gradient of 50 mmHg and mean pressure g radient of 23 mmHg. The dimensionless index is .46 consistent with mild aortic valve stenosis. The aortic valve is severely sclerotic. The aortic valve is trileaflet. The mitral valve leaflets are mildly thickened. There is mitral valve prolapse. Doppler and Color Flow revealed no tricuspid valve regurgitation noted. Unable to determine pulmonary artery pressure at exam time. The pulmonic valve is not visualized, unable to assess. There is small right pleural effusion. There is no evidence of significant pericardial effusion.
--- NOTE | 2016-10-23 20:43 | CONS ---
DATE OF CONSULTATION: 10/23/2016 Consult was to evaluate dental abscess. The patient is a 65-year-old white female who was admitted for pneumonia. The patient is complaining about bad teeth. Exam revealed no gross edema. Multiple carious teeth. No discharge. Uvula midline, trachea midline. No difficulty opening and closing. No floor of mouth edema. X-ray, none was available. ASSESSMENT AND PLAN: The patient has multiple carious teeth. Plan is pain meds p.r.n. The patient can followup office after discharge from hospital for extractions. CATA KEANE DDS DR: DANE/regla JOB#: [id number] / [id number]
[2016-10-23] MEDS: hydroCHLOROthiazide 12.5 MG CAPSULE PO SCH (21:37)
[2016-10-23] MEDS: CITALOPRAM 20 MG TABLET. PO SCH (21:38)
[2016-10-23] MEDS: QUEtiapine 25 MG TABLET. PO SCH (21:38)
[2016-10-24] MEDS: HYDROcodone/APAP 10/325 1 TAB TABLET PO PRN ×4 (02:57→16:05)
[2016-10-24 03:24] VITALS: BP 134/79
[2016-10-24 04:16] LABS: BASO # 0.1 x10^3/uL (0.0-0.2); BASO % 1 % (0-3); EOS % 3 % (0-3); HEMOGLOBIN 10.1 g/dL (12.0-15.5); LYMPH # 2.4 x10^3/uL (1.0-4.8); LYMPH % 23 % (24-48); MEAN CORPUSCULAR HEMOGLOBIN 33 pg (25-35); MEAN CORPUSCULAR HGB CONC 35 g/dL (31-37); MEAN CORPUSCULAR VOLUME 95 fL (79-100); MONO % 10 % (0-9); NEUT % 63 % (31-73); PLATELET COUNT 294 x10^3/uL (140-400); RED BLOOD COUNT 3.05 x10^6/uL (3.50-5.40); RED CELL DISTRIBUTION WIDTH 13.3 % (11.5-14.5); WHITE BLOOD COUNT 10.4 x10^3/uL (4.0-11.0)
[2016-10-24 04:32] LABS: CALCIUM 8.6 mg/dL (8.5-10.1); CREATININE 0.8 mg/dL (0.6-1.0); GFR 72.2; POTASSIUM 3.2 mmol/L (3.5-5.1)
[2016-10-24 06:46] VITALS: BP 146/93
[2016-10-24] MEDS: IPRATRPIUM/ALBUTEROL 0.5/2.5MG 3 ML NEBU. NEB SCH ×3 (07:50→16:54)
[2016-10-24] MEDS: oxyCODONE ER 10 MG TAB.ER.12H PO SCH (09:00)
[2016-10-24] MEDS: NICOTINE 21MG PATCH. TD SCH (09:00)
--- NOTE | 2016-10-24 10:01 | PDOC ---
PULMONARY PROGRESS NOTES Subjective Pt with no increase soa s/p biopsy Vitals Vital Signs Date Time Temp Pulse Resp B/P (MAP) Pulse Ox O2 Delivery O2 Flow Rate FiO2 10/24/16 08:00 Nasal Cannula 2.0 10/24/16 07:50 91 10/24/16 06:46 98.0 106 17 146/93 (110) 98.0 ROS: No Nausea, No Chest Pain, No Abdominal Pain, No Increase Cough General: Alert HEENT: Other (nc at perrl nose clear, poor dentition) Lungs: Crackles Cardiovascular: S1, S2 Abdomen: Soft, Non-tender Neuro Exam: Alert, Oriented Extremities: No Edema Skin: Warm Labs Laboratory Tests Test 10/23/16 03:35 10/23/16 08:27 10/24/16 03:40 White Blood Count 12.6 x10^3/uL (4.0-11.0) 10.4 x10^3/uL (4.0-11.0) Red Blood Count 3.00 x10^6/uL (3.50-5.40) 3.05 x10^6/uL (3.50-5.40) Hemoglobin 9.7 g/dL (12.0-15.5) 10.1 g/dL (12.0-15.5) Hematocrit 28.7 % (36.0-47.0) 29.0 % (36.0-47.0) Mean Corpuscular Volume 96 fL (79-100) 95 fL (79-100) Mean Corpuscular Hemoglobin 32 pg (25-35) 33 pg (25-35) Mean Corpuscular Hemoglobin Concent 34 g/dL (31-37) 35 g/dL (31-37) Red Cell Distribution Width 13.3 % (11.5-14.5) 13.3 % (11.5-14.5) Platelet Count 267 x10^3/uL (140-400) 294 x10^3/uL (140-400) Neutrophils (%) (Auto) 67 % (31-73) 63 % (31-73) Lymphocytes (%) (Auto) 22 % (24-48) 23 % (24-48) Monocytes (%) (Auto) 9 % (0-9) 10 % (0-9) Eosinophils (%) (Auto) 3 % (0-3) 3 % (0-3) Basophils (%) (Auto) 1 % (0-3) 1 % (0-3) Neutrophils # (Auto) 8.4 x10^3uL (1.8-7.7) 6.6 x10^3uL (1.8-7.7) Lymphocytes # (Auto) 2.7 x10^3/uL (1.0-4.8) 2.4 x10^3/uL (1.0-4.8) Monocytes # (Auto) 1.1 x10^3/uL (0.0-1.1) 1.0 x10^3/uL (0.0-1.1) Eosinophils # (Auto) 0.3 x10^3/uL (0.0-0.7) 0.4 x10^3/uL (0.0-0.7) Basophils # (Auto) 0.1 x10^3/uL (0.0-0.2) 0.1 x10^3/uL (0.0-0.2) Sodium Level 133 mmol/L (136-145) 136 mmol/L (136-145) Potassium Level 3.3 mmol/L (3.5-5.1) 3.2 mmol/L (3.5-5.1) Chloride Level 97 mmol/L (98-107) 99 mmol/L (98-107) Carbon Dioxide Level 27 mmol/L (21-32) 27 mmol/L (21-32) Anion Gap 9 (6-14) 10 (6-14) Blood Urea Nitrogen 8 mg/dL (7-20) 7 mg/dL (7-20) Creatinine 0.8 mg/dL (0.6-1.0) 0.8 mg/dL (0.6-1.0) Estimated GFR (Cockcroft-Gault) 72.2 72.2 Glucose Level 82 mg/dL (70-99) 79 mg/dL (70-99) Calcium Level 8.3 mg/dL (8.5-10.1) 8.6 mg/dL (8.5-10.1) Prothrombin Time 12.8 SEC (11.7-14.0) Prothromb Time International Ratio 1.0 (0.8-1.1) Laboratory Tests Test 10/24/16 03:40 White Blood Count 10.4 x10^3/uL (4.0-11.0) Red Blood Count 3.05 x10^6/uL (3.50-5.40) Hemoglobin 10.1 g/dL (12.0-15.5) Hematocrit 29.0 % (36.0-47.0) Mean Corpuscular Volume 95 fL (79-100) Mean Corpuscular Hemoglobin 33 pg (25-35) Mean Corpuscular Hemoglobin Concent 35 g/dL (31-37) Red Cell Distribution Width 13.3 % (11.5-14.5) Platelet Count 294 x10^3/uL (140-400) Neutrophils (%) (Auto) 63 % (31-73) Lymphocytes (%) (Auto) 23 % (24-48) Monocytes (%) (Auto) 10 % (0-9) Eosinophils (%) (Auto) 3 % (0-3) Basophils (%) (Auto) 1 % (0-3) Neutrophils # (Auto) 6.6 x10^3uL (1.8-7.7) Lymphocytes # (Auto) 2.4 x10^3/uL (1.0-4.8) Monocytes # (Auto) 1.0 x10^3/uL (0.0-1.1) Eosinophils # (Auto) 0.4 x10^3/uL (0.0-0.7) Basophils # (Auto) 0.1 x10^3/uL (0.0-0.2) Sodium Level 136 mmol/L (136-145) Potassium Level 3.2 mmol/L (3.5-5.1) Chloride Level 99 mmol/L (98-107) Carbon Dioxide Level 27 mmol/L (21-32) Anion Gap 10 (6-14) Blood Urea Nitrogen 7 mg/dL (7-20) Creatinine 0.8 mg/dL (0.6-1.0) Estimated GFR (Cockcroft-Gault) 72.2 Glucose Level 79 mg/dL (70-99) Calcium Level 8.6 mg/dL (8.5-10.1) Medications Active Scripts Medications Dose Route/Sig Max Daily Dose Days Date Category Melatonin 3 Mg Tablet 1 Tab PO PRN QHS PRN 10/21/16 Reported Seroquel (Quetiapine Fumarate) 25 Mg Tablet 1 Tab PO QHS 10/21/16 Reported Benadryl (Diphenhydramine Hcl) 25 Mg Capsule 1 Cap PO PRN QHS PRN 10/21/16 Reported Hydrochlorothiazide Tablet (Hydrochlorothiazide) 12.5 Mg Tablet 1 Tab PO QHS 10/21/16 Reported Lexapro (Escitalopram Oxalate) 20 Mg Tablet 1 Tab PO QHS 10/21/16 Reported Hydrocodone-Apap 10-325 (Hydrocodone Bit/Acetaminophen) 1 Each Tablet 1 Tab PO PRN Q4HRS 10/21/16 Reported Oxycontin (Oxycodone HCl) 10 Mg Tab.er.12h 10 Mg PO BID 10/21/16 Reported Impression . 1. Acute respiratory failure, multifactorial in etiology. 2. Abnormal CT of the chest with cavitary pulmonary nodules, S/P Biopsy 3. Poor dentition. 4. Acute kidney injury. 5. Hyponatremia. 6. Hypokalemia. 7. Leukocytosis. 8. Right lower lobe infiltrate, probably pneumonia. 9. Tobacco habituation. 10. Emphysema/chronic obstructive pulmonary disease. 11. +uds Plan . HOME TODAY FOLLOW IN MY OFFICE FOLLOW LABS IN OFFICE FOR [facility]OIMM[facility]E DZ JUDE LAMAR MD Oct 24, 2016 10:01
[2016-10-24 10:46] VITALS: BP 119/73
--- NOTE | 2016-10-24 12:34 | PDOC ---
PROGRESS NOTES Chief Complaint Chief Complaint CC: Dyspnea PNU Fibromyalgia Depression History of Present Illness History of Present Illness Pt was experiencing less dyspnea overnight and is down to 2L of O2. Pt is not on O2 at home. One blood Cx came back positive, likely from contaminate. Called pathology from the pt's room and report is pending. Vitals Vitals Vital Signs Date Time Temp Pulse Resp B/P (MAP) Pulse Ox O2 Delivery O2 Flow Rate FiO2 10/24/16 12:00 Nasal Cannula 3.0 10/24/16 11:07 93 10/24/16 10:46 97.9 66 18 119/73 (88) 97.9 Physical Exam General: Alert, Oriented X3, Cooperative, mild distress Heart: Regular rate, No murmurs Lungs: Crackles Abdomen: Normal bowel sounds, Soft Extremities: No clubbing, No cyanosis Skin: No rashes, No breakdown Labs LABS Laboratory Tests Test 10/24/16 03:40 White Blood Count 10.4 x10^3/uL (4.0-11.0) Red Blood Count 3.05 x10^6/uL (3.50-5.40) Hemoglobin 10.1 g/dL (12.0-15.5) Hematocrit 29.0 % (36.0-47.0) Mean Corpuscular Volume 95 fL (79-100) Mean Corpuscular Hemoglobin 33 pg (25-35) Mean Corpuscular Hemoglobin Concent 35 g/dL (31-37) Red Cell Distribution Width 13.3 % (11.5-14.5) Platelet Count 294 x10^3/uL (140-400) Neutrophils (%) (Auto) 63 % (31-73) Lymphocytes (%) (Auto) 23 % (24-48) Monocytes (%) (Auto) 10 % (0-9) Eosinophils (%) (Auto) 3 % (0-3) Basophils (%) (Auto) 1 % (0-3) Neutrophils # (Auto) 6.6 x10^3uL (1.8-7.7) Lymphocytes # (Auto) 2.4 x10^3/uL (1.0-4.8) Monocytes # (Auto) 1.0 x10^3/uL (0.0-1.1) Eosinophils # (Auto) 0.4 x10^3/uL (0.0-0.7) Basophils # (Auto) 0.1 x10^3/uL (0.0-0.2) Sodium Level 136 mmol/L (136-145) Potassium Level 3.2 mmol/L (3.5-5.1) Chloride Level 99 mmol/L (98-107) Carbon Dioxide Level 27 mmol/L (21-32) Anion Gap 10 (6-14) Blood Urea Nitrogen 7 mg/dL (7-20) Creatinine 0.8 mg/dL (0.6-1.0) Estimated GFR (Cockcroft-Gault) 72.2 Glucose Level 79 mg/dL (70-99) Calcium Level 8.6 mg/dL (8.5-10.1) Review of Systems Review of Systems Complains of dyspnea Complains of tooth pain from an abscess Assessment and Plan Assessmemt and Plan Problems Medical Problems: (1) Community acquired pneumonia Status: Acute CC: Dyspnea PNU: Likely cause of dyspnea, CXR showed consolidation, titrate O2 to FiO2 >95% , try to titrate down to no O2, continue Rocephin and azithromycin, pulm will perform 6min walk today, continue breathing tx as per Dr. Up, appreciate the assistance Lung nodule: Found on periphery of lung, largest is 16mmm, CT Bx path is pending , Cx came back as negative Dental abscess: Consulted Dr. Judge, appreciate the assistance, informed the pt to have extractions done on an out-pt basis Fibromyalgia: Continue RESTORATIVE COORDINATOR oxycodone, Lortab, and Dilaudid Depression: Continue RESTORATIVE COORDINATOR quetiapine and citalopram Dispo: hope to DC in 1-2d if agreeable w/pulm Problems: Comment Review of Relevant I have reviewed the following items pat (where applicable) has been applied. Labs Laboratory Tests Test 10/23/16 03:35 10/23/16 08:27 10/24/16 03:40 White Blood Count 12.6 x10^3/uL (4.0-11.0) 10.4 x10^3/uL (4.0-11.0) Red Blood Count 3.00 x10^6/uL (3.50-5.40) 3.05 x10^6/uL (3.50-5.40) Hemoglobin 9.7 g/dL (12.0-15.5) 10.1 g/dL (12.0-15.5) Hematocrit 28.7 % (36.0-47.0) 29.0 % (36.0-47.0) Mean Corpuscular Volume 96 fL (79-100) 95 fL (79-100) Mean Corpuscular Hemoglobin 32 pg (25-35) 33 pg (25-35) Mean Corpuscular Hemoglobin Concent 34 g/dL (31-37) 35 g/dL (31-37) Red Cell Distribution Width 13.3 % (11.5-14.5) 13.3 % (11.5-14.5) Platelet Count 267 x10^3/uL (140-400) 294 x10^3/uL (140-400) Neutrophils (%) (Auto) 67 % (31-73) 63 % (31-73) Lymphocytes (%) (Auto) 22 % (24-48) 23 % (24-48) Monocytes (%) (Auto) 9 % (0-9) 10 % (0-9) Eosinophils (%) (Auto) 3 % (0-3) 3 % (0-3) Basophils (%) (Auto) 1 % (0-3) 1 % (0-3) Neutrophils # (Auto) 8.4 x10^3uL (1.8-7.7) 6.6 x10^3uL (1.8-7.7) Lymphocytes # (Auto) 2.7 x10^3/uL (1.0-4.8) 2.4 x10^3/uL (1.0-4.8) Monocytes # (Auto) 1.1 x10^3/uL (0.0-1.1) 1.0 x10^3/uL (0.0-1.1) Eosinophils # (Auto) 0.3 x10^3/uL (0.0-0.7) 0.4 x10^3/uL (0.0-0.7) Basophils # (Auto) 0.1 x10^3/uL (0.0-0.2) 0.1 x10^3/uL (0.0-0.2) Sodium Level 133 mmol/L (136-145) 136 mmol/L (136-145) Potassium Level 3.3 mmol/L (3.5-5.1) 3.2 mmol/L (3.5-5.1) Chloride Level 97 mmol/L (98-107) 99 mmol/L (98-107) Carbon Dioxide Level 27 mmol/L (21-32) 27 mmol/L (21-32) Anion Gap 9 (6-14) 10 (6-14) Blood Urea Nitrogen 8 mg/dL (7-20) 7 mg/dL (7-20) Creatinine 0.8 mg/dL (0.6-1.0) 0.8 mg/dL (0.6-1.0) Estimated GFR (Cockcroft-Gault) 72.2 72.2 Glucose Level 82 mg/dL (70-99) 79 mg/dL (70-99) Calcium Level 8.3 mg/dL (8.5-10.1) 8.6 mg/dL (8.5-10.1) Prothrombin Time 12.8 SEC (11.7-14.0) Prothromb Time International Ratio 1.0 (0.8-1.1) Laboratory Tests Test 10/24/16 03:40 White Blood Count 10.4 x10^3/uL (4.0-11.0) Red Blood Count 3.05 x10^6/uL (3.50-5.40) Hemoglobin 10.1 g/dL (12.0-15.5) Hematocrit 29.0 % (36.0-47.0) Mean Corpuscular Volume 95 fL (79-100) Mean Corpuscular Hemoglobin 33 pg (25-35) Mean Corpuscular Hemoglobin Concent 35 g/dL (31-37) Red Cell Distribution Width 13.3 % (11.5-14.5) Platelet Count 294 x10^3/uL (140-400) Neutrophils (%) (Auto) 63 % (31-73) Lymphocytes (%) (Auto) 23 % (24-48) Monocytes (%) (Auto) 10 % (0-9) Eosinophils (%) (Auto) 3 % (0-3) Basophils (%) (Auto) 1 % (0-3) Neutrophils # (Auto) 6.6 x10^3uL (1.8-7.7) Lymphocytes # (Auto) 2.4 x10^3/uL (1.0-4.8) Monocytes # (Auto) 1.0 x10^3/uL (0.0-1.1) Eosinophils # (Auto) 0.4 x10^3/uL (0.0-0.7) Basophils # (Auto) 0.1 x10^3/uL (0.0-0.2) Sodium Level 136 mmol/L (136-145) Potassium Level 3.2 mmol/L (3.5-5.1) Chloride Level 99 mmol/L (98-107) Carbon Dioxide Level 27 mmol/L (21-32) Anion Gap 10 (6-14) Blood Urea Nitrogen 7 mg/dL (7-20) Creatinine 0.8 mg/dL (0.6-1.0) Estimated GFR (Cockcroft-Gault) 72.2 Glucose Level 79 mg/dL (70-99) Calcium Level 8.6 mg/dL (8.5-10.1) Microbiology 10/22/16 Blood Culture - Preliminary, Resulted 10/22/16 Blood Culture Result 1 (JESSICA) - Preliminary, Resulted 10/23/16 Gram Stain - Final, Complete 10/23/16 Anaerobic/Aerobic Culture, Resulted Pending 10/23/16 Anaerobic Culture Result 1 (JESSICA), Resulted Pending 10/23/16 Aerobic Culture - Preliminary, Resulted 10/23/16 Aerobic Culture Result 1 (JESSICA) - Preliminary, Resulted Medications Current Medications Sodium Chloride 1,000 ml @ 1,000 mls/hr 1X ONCE IV Last administered on 19:40; Start 10/20/16 at 19:15; Stop 10/20/16 at 20:14; Status DC Hydromorphone HCl (Dilaudid) 0.5 mg 1X ONCE IV Last administered on 10/20/16 19:41; Start 10/20/16 at 19:15; Stop 10/20/16 at 19:16; Status DC Ondansetron HCl (Zofran) 4 mg 1X ONCE IV Last administered on 10/20/16 19:40 ; Start 10/20/16 at 19:15; Stop 10/20/16 at 19:16; Status DC Sodium Chloride 1,000 ml @ 1,000 mls/hr 1X ONCE IV Last administered on 22:29; Start 10/20/16 at 20:00; Stop 10/20/16 at 20:59; Status DC Iohexol (Omnipaque 300 Mg/ml) 75 ml 1X ONCE IV ; Start 10/20/16 at 20:45; Stop 10/20/16 at 20:46; Status DC Info (Do NOT chart on this entry -- for MONITORING) 1 each PRN DAILY PRN MC SEE COMMENTS; Start 10/20/16 at 20:30; Stop 10/22/16 at 20:29; Status DC Hydromorphone HCl (Dilaudid) 1 mg PRN Q15MIN PRN IV/SQ PAIN GREATER THAN 3/10 Last administered on 10/20/16 22:55; Start 10/20/16 at 23:00; Stop 10/21/16 at 17:47; Status DC Ceftriaxone Sodium 50 ml @ 100 mls/hr 1X ONCE IV Last administered on 01:41; Start 10/20/16 at 23:30; Stop 10/20/16 at 23:59; Status DC Azithromycin 250 ml @ 250 mls/hr 1X ONCE IV Last administered on 10/21/16 02 :18; Start 10/20/16 at 23:30; Stop 10/21/16 at 00:29; Status DC Acetaminophen/ Hydrocodone Bitart (Lortab 10/325) 1 tab PRN Q4HRS PRN PO PAIN Last administered on 10/24/16 11:06; Start 10/21/16 at 00:45 Oxycodone HCl (OxyCONTIN) 10 mg BID PO Last administered on 10/24/16 09:00; Start 10/21/16 at 09:00 Nicotine (Nicoderm Cq 21mg) 1 patch DAILY TD ; Start 10/21/16 at 09:00 Ceftriaxone Sodium 1 gm/ Sodium Chloride 50 ml @ 100 mls/hr Q24H IV Last administered on 10/23/16 13:27; Start 10/21/16 at 12:00 Azithromycin 500 mg/Sodium Chloride 250 ml @ 250 mls/hr Q24H IV Last administered on 10/23/16 15:34; Start 10/21/16 at 13:00 Hydromorphone HCl (Dilaudid) 0.4 mg PRN Q2HRS PRN IVP PAIN Last administered on 10/23/16 01:22; Start 10/21/16 at 12:00 Diphenhydramine HCl (Benadryl) 25 mg PRN QHS PRN PO INSOMNIA Last administered on 10/21/16 21:11; Start 10/21/16 at 12:15 Quetiapine Fumarate (SEROquel) 25 mg QHS PO Last administered on 10/23/16 21: 38; Start 10/21/16 at 21:00 Citalopram Hydrobromide (CeleXA) 40 mg QHS PO Last administered on 10/23/16 21 :38; Start 10/21/16 at 21:00 Hydrochlorothiazide (Microzide) 12.5 mg QHS PO Last administered on 10/23/16 21:37; Start 10/21/16 at 21:00 Non-Formulary Medication 1 tab PRN QHS PRN PO INSOMNIA; Start 10/21/16 at 12:15 ; Status UNV Albuterol/ Ipratropium (Duoneb) 3 ml RTQID NEB Last administered on 10/24/16 11:59; Start 10/21/16 at 16:00 Potassium Chloride (Klor-Con) 40 meq 1X ONCE PO Last administered on 08:28; Start 10/23/16 at 07:00; Stop 10/23/16 at 07:03; Status DC Lidocaine/Sodium Bicarbonate (Buffered Lidocaine 1%) 20 ml STK-MED ONCE IJ ; Start 10/23/16 at 10:05; Stop 10/23/16 at 10:06; Status DC Midazolam HCl (Versed) 2 mg STK-MED ONCE .ROUTE ; Start 10/23/16 at 11:40; Stop 10/23/16 at 11:41; Status DC Fentanyl Citrate (Fentanyl 2ml Vial) 100 mcg STK-MED ONCE .ROUTE ; Start at 11:40; Stop 10/23/16 at 11:41; Status DC Lidocaine/Sodium Bicarbonate (Buffered Lidocaine 1%) 20 ml 1X ONCE IJ Last administered on 10/23/16 12:00; Start 10/23/16 at 12:00; Stop 10/23/16 at 12:01 ; Status DC Midazolam HCl (Versed) 2 mg 1X ONCE IV Last administered on 10/23/16 12:34; Start 10/23/16 at 12:00; Stop 10/23/16 at 12:01; Status DC Fentanyl Citrate (Fentanyl 2ml Vial) 100 mcg 1X ONCE IV Last administered on t 12:35; Start 10/23/16 at 12:00; Stop 10/23/16 at 12:01; Status DC Active Scripts Active Reported Melatonin 3 Mg Tablet 1 Tab PO PRN QHS PRN Seroquel (Quetiapine Fumarate) 25 Mg Tablet 1 Tab PO QHS Benadryl (Diphenhydramine Hcl) 25 Mg Capsule 1 Cap PO PRN QHS PRN Hydrochlorothiazide Tablet (Hydrochlorothiazide) 12.5 Mg Tablet 1 Tab PO QHS Lexapro (Escitalopram Oxalate) 20 Mg Tablet 1 Tab PO QHS Hydrocodone-Apap 10-325 (Hydrocodone Bit/Acetaminophen) 1 Each Tablet 1 Tab PO PRN Q4HRS Oxycontin (Oxycodone HCl) 10 Mg Tab.er.12h 10 Mg PO BID Vitals/I & O Vital Sign - Last 24 Hours 10/23/16 10/23/16 10/23/16 10/23/16 12:25 12:29 12:35 13:33 Pulse 117 117 Resp 22 22 20 Pulse Ox 90 88 88 88 O2 Delivery Nasal Cannula Nasal Cannula Nasal Cannula O2 Flow Rate 4.0 4.0 4.0 10/23/16 10/23/16 10/23/16 10/23/16 13:41 15:20 15:28 15:30 Temp 98.7 98.8 98.7 98.8 Pulse 110 112 Resp 19 18 B/P (MAP) 135/63 (87) 184/103 (130) Pulse Ox 92 90 90 O2 Delivery Nasal Cannula Nasal Cannula Nasal Cannula Nasal Cannula O2 Flow Rate 5.0 5.0 3.0 3.0 10/23/16 10/23/16 10/23/16 10/23/16 15:55 19:35 19:49 19:54 Temp 98.1 98.1 Pulse 108 Resp 18 18 B/P (MAP) 185/92 (123) Pulse Ox 90 96 O2 Delivery Nasal Cannula Nasal Cannula Nasal Cannula Nasal Cannula O2 Flow Rate 3.0 2.0 3.0 2.0 10/23/16 10/23/16 10/23/16 10/23/16 20:00 20:35 21:37 23:19 Temp 98.2 98.2 Pulse 98 Resp 18 18 16 B/P (MAP) 114/69 (84) Pulse Ox 93 O2 Delivery Nasal Cannula Nasal Cannula Nasal Cannula O2 Flow Rate 2.0 2.0 2.0 10/24/16 10/24/16 10/24/16 10/24/16 01:35 02:57 03:24 06:46 Temp 98.0 98.0 98.0 98.0 Pulse 91 106 Resp 15 19 18 17 B/P (MAP) 134/79 (97) 146/93 (110) Pulse Ox 95 90 O2 Delivery Nasal Cannula Nasal Cannula Nasal Cannula Nasal Cannula O2 Flow Rate 2.0 2.0 2.0 2.0 10/24/16 10/24/16 10/24/16 10/24/16 07:01 07:50 08:00 09:00 Pulse Ox 93 91 91 O2 Delivery Nasal Cannula Nasal Cannula Nasal Cannula Nasal Cannula O2 Flow Rate 2.0 3.0 2.0 2.0 10/24/16 10/24/16 10/24/16 10/24/16 10:46 11:06 11:07 12:00 Temp 97.9 97.9 Pulse 66 Resp 18 B/P (MAP) 119/73 (88) Pulse Ox 93 93 93 O2 Delivery Nasal Cannula Nasal Cannula Nasal Cannula Nasal Cannula O2 Flow Rate 2.0 2.0 2.0 3.0 Images Echocardiogram: The left ventricular systolic function is normal and the ejection fraction is within normal range. The Ejection Fraction is 60 %. Tachycardia noted, unable to assess left ventricular diastolic function adequately. The right atrium size is normal. The left atrium is mildly dilated. There is mild valvular aortic stenosis. Calculated aortic valve area is 1.7 cm2 with maximum pressure gradient of 50 mmHg and mean pressure gradient of 23 mmHg. The dimensionless index is .46 consistent with mild aortic valve stenosis. The aortic valve is severely sclerotic. The aortic valve is trileaflet. The mitral valve leaflets are mildly thickened. There is mitral valve prolapse. Doppler and Color Flow revealed no tricuspid valve regurgitation noted. Unable to determine pulmonary artery pressure at exam time. The pulmonic valve is not visualized, unable to assess. There is small right pleural effusion. There is no evidence of significant pericardial effusion. KYLE RYAN III DO Oct 24, 2016 12:34
[2016-10-24 13:17] LABS: PROTEINASE 3 ANTIBODY <3.5 U/mL (0.0-3.5)
[2016-10-24] MEDS: AZITHROMYCIN 500 MG in IV NORMAL SALINE 250ML 250 ML IV SCH (13:39)
[2016-10-24 14:51] VITALS: BP_SYST 114; BP_SYST 119; BP_DIAS 67; BP_DIAS 80
--- NOTE | 2016-10-25 08:40 | PATHOLOGY ---
PATHOLOGY REPORT * * * * * * * * FINAL DIAGNOSIS: Lung tissue, left lung nodules, CT-guided needle biopsy: - Hemorrhagic and fibrinous acute inflammatory exudate. See comment. (JPM:poonam; 10/24/2016) COMMENT: The left lung CT-guided needle biopsy is highly fragmented. The majority of the fragments consist of hemorrhagic and fibrinous acute inflammatory exudate. There are few segments of preserved lung tissue which show neutrophils within the interstitium. The findings are suggestive of an acute pneumonitis/abscess. There is no evidence of malignancy. A GMS stain will be obtained, the results of which will be reported separately. The case is also examined by Dr. Rae and Dr. Mcneil who concur with the diagnosis. (JPM:poonam; 10/24/2016) REPORT ELECTRONICALLY SIGNED BY: Gabriel Paredes M.D. DATE/TIME: 10/25/2016 08:39 * * * * * * * * GROSS PATHOLOGY: Received in formalin labeled "Eric Yee, left lung biopsy," are multiple, minute segments of eubanks soft tissue measuring 0.3 x 0.2 x less than 0.1 cm in aggregate dimension. The specimen is submitted entirely in cassette A1. Multiple slides will be requested. (JPM; 10/23/16) INITIAL CPT CODE(S): A; 52758, 49689, 94214 Professional services performed by [facility] [place] [address] Technical services performed by [facility] at [address] [place] [address], [facility] [address], [place] [address]. SPECIMEN(S) RECEIVED: A.Left lung nodules CLINICAL HISTORY: Left lung nodules, pneumonia, smoker PATIENT: ERIC YEE /AGE: 9 1950 (Age: 65) PATIENT #: [id number] ALT CASE #: SPECIMEN COLLECTION DATE: 10/23/2016 SPECIMEN RECEIVED DATE: 10/23/2016 [facility] - [facility] [place] [address] - PHONE: [phone] * * * END OF REPORT * * *
== END 2016-10-24 22:44 | disposition home or self-care (01) | DRG 177 ==
LOC: ER 18:51 → 6 SOUTH 23:00
PROVIDERS: ADMIT Internal Medicine; ATTEND Internal Medicine
PROC: 0BBL3ZX Excision of Left Lung, Percutaneous Approach, Diagnostic (ICD-10-PCS; principal; 2016-10-21)
DX: J69.0 Pneumonitis due to inhalation of food and vomit (principal); J96.00 Acute respiratory failure, unspecified whether with hypoxia or hypercapnia; N17.9 Acute kidney failure, unspecified; E87.1 Hypo-osmolality and hyponatremia; J44.0 Chronic obstructive pulmonary disease with (acute) lower respiratory infection; F17.210 Nicotine dependence, cigarettes, uncomplicated; K04.7 Periapical abscess without sinus; F32.9 Major depressive disorder, single episode, unspecified; E87.6 Hypokalemia; F12.90 Cannabis use, unspecified, uncomplicated; I10 Essential (primary) hypertension; K02.9 Dental caries, unspecified; M79.7 Fibromyalgia; Z83.3 Family history of diabetes mellitus; Z90.49 Acquired absence of other specified parts of digestive tract; Z90.710 Acquired absence of both cervix and uterus; F41.9 Anxiety disorder, unspecified; G89.29 Other chronic pain; M54.10 Radiculopathy, site unspecified; Z90.89 Acquired absence of other organs; Z88.5 Allergy status to narcotic agent; Z88.8 Allergy status to other drugs, medicaments and biological substances; K00.7 Teething syndrome
CPT/HCPCS: 32405; 36415; 51701; 71010; 71275; 77012; 80048; 80053; 80307; 81001; 83520; 83605; 84484; 85007; 85025; 85610; 86140; 87040; 87070; 87071; 87075; 87102; 87116; 87205; 87449; 93005; 93306; 94250; 94640; 94760; 96361; 96374; 96375; 99152; J0456; J0690; J0696; J1170; J2250; J2405; J3010; J7030; J7050; J7620; Q0163; 83516; 97110; 97116; 97530; 99285-25; G0479

== ENCOUNTER → 2016-11-09 | Outpatient (CLI) | payer MEDICARE ==
[2016-10-24 14:51] VITALS: BP 119/67
[~2016-11-09] MED LIST: DIPH25CA58 PO; HYDR-2766 PO; HYDR12.58 PO; LEXAPRO20 MG PO; MELA3TAB2 PO; OXYC10TA45 PO; QUET25TA5 PO
[2016-11-13 16:15] LABS: C ANCA <1:20 titer (Neg:<1:20)
== END | disposition home or self-care (01) ==
LOC: LAB 13:28
PROVIDERS: ATTEND Internal Medicine Pulmonary Disease
DX: R06.02 Shortness of breath (principal)
CPT/HCPCS: 36415; 85651; 86021

== ENCOUNTER → 2017-06-12 | Outpatient (CLI) | payer MEDICARE | END | disposition home or self-care (01) | LOC: KCIC MRI 15:02 | DX: M51.16 Intervertebral disc disorders with radiculopathy, lumbar region (principal); M48.061 Spinal stenosis, lumbar region without neurogenic claudication | CPT/HCPCS: 72148 ==

== ENCOUNTER 2017-07-31 14:55 | Emergency (ER) | payer MEDICARE ==
[2017-07-31] MEDS: predniSONE 10 MG TABLET PO (16:09)
== END 2017-07-31 16:21 | disposition home or self-care (01) ==
LOC: ER 14:55
DX: M79.604 Pain in right leg (principal); M54.30 Sciatica, unspecified side; G89.29 Other chronic pain; I10 Essential (primary) hypertension; M79.7 Fibromyalgia; Z90.710 Acquired absence of both cervix and uterus; Z90.49 Acquired absence of other specified parts of digestive tract; Z88.5 Allergy status to narcotic agent; Z88.6 Allergy status to analgesic agent; Z88.8 Allergy status to other drugs, medicaments and biological substances
CPT/HCPCS: 99283; J7512

== ENCOUNTER 2017-08-20 15:16 | Inpatient (IN) | payer MEDICARE ==
[2017-08-20 15:31] LABS: POC GLUCOSE 171 mg/dL (70-99)
[2017-08-20 16:09] LABS: BASO # 0.1 x10^3/uL (0.0-0.2); BASO % 0 % (0-3); EOS % 0 % (0-3); HEMATOCRIT 44.2 % (36.0-47.0); HEMOGLOBIN 14.8 g/dL (12.0-15.5); LYMPH # 1.7 x10^3/uL (1.0-4.8); LYMPH % 10 % (24-48); MEAN CORPUSCULAR HEMOGLOBIN 32 pg (25-35); MEAN CORPUSCULAR HGB CONC 33 g/dL (31-37); MEAN CORPUSCULAR VOLUME 95 fL (79-100); MONO # 0.8 x10^3/uL (0.0-1.1); MONO % 5 % (0-9); NEUT # 14.7 x10^3uL (1.8-7.7); NEUT % 85 % (31-73); PLATELET COUNT 582 x10^3/uL (140-400); RED BLOOD COUNT 4.66 x10^6/uL (3.50-5.40); RED CELL DISTRIBUTION WIDTH 13.9 % (11.5-14.5); WHITE BLOOD COUNT 17.4 x10^3/uL (4.0-11.0)
[2017-08-20 16:12] LABS: ADD MAN DIFF? YES; BILIRUBIN,URINE NEGATIVE (NEG); CLARITY,URINE CLEAR; COLOR,URINE YELLOW; GLUCOSE,URINE NEGATIVE (NEG); NITRITE,URINE NEGATIVE (NEG); PH,URINE 5.5; PROTEIN,URINE 100 mg/dL (NEG-TRACE); UROBILINOGEN,URINE 0.2 mg/dL (0.2 mg/dL)
[2017-08-20 16:17] LABS: BARBITURATES NEG (NEG); BENZODIAZEPINES NEG (NEG); CANNABINOIDS NEG (NEG); COCAINE NEG (NEG); METHADONE NEG (NEG); OPIATES POS (NEG); PHENCYCLIDINE NEG (NEG)
[2017-08-20 16:19] LABS: PROTHROMBIN TIME PATIENT 12.8 SEC (11.7-14.0)
[2017-08-20 16:20] LABS: AMMONIA 49 mcmol/L (11-34)
[2017-08-20 16:24] LABS: AMPHETAMINE/METHAMPHETAMINE NEG (NEG); BACTERIA,URINE 0 /HPF (0-FEW); ETHANOL, URINE NEG (NEG); HYALINE CASTS, URINE FEW /HPF; RBC,URINE OCC /HPF (0-2); WBC,URINE OCC /HPF (0-4)
[2017-08-20 16:31] LABS: ANION GAP 24 (6-14); BLOOD UREA NITROGEN 21 mg/dL (7-20); BUN/CREATININE RATIO 12 (6-20); CALCIUM 10.8 mg/dL (8.5-10.1); CARBON DIOXIDE 15 mmol/L (21-32); CHLORIDE 99 mmol/L (98-107); CREATININE 1.7 mg/dL (0.6-1.0); GFR 30.2; GLUCOSE 171 mg/dL (70-99); POTASSIUM 4.4 mmol/L (3.5-5.1); SODIUM 138 mmol/L (136-145)
[2017-08-20 16:34] LABS: ETHANOL < 10 mg/dL (0-10)
[2017-08-20 16:35] LABS: ACETAMIN < 2 mcg/ml (10-30)
[2017-08-20 16:37] LABS: ALBUMIN 4.1 g/dL (3.4-5.0); ALBUMIN/GLOBULIN RATIO 0.7 (1.0-1.7); ALK PHOS 110 U/L (46-116); ALT (SGPT) 17 U/L (14-59); AST (SGOT) 27 U/L (15-37); LIPASE 123 U/L (73-393); MAGNESIUM 1.8 mg/dL (1.8-2.4); TOTAL BILIRUBIN 0.4 mg/dL (0.2-1.0); TOTAL PROTEIN 9.6 g/dL (6.4-8.2)
[2017-08-20 16:42] LABS: TROPONINI 2.821 ng/mL (0.000-0.055)
[2017-08-20 16:44] LABS: THYROID STIM HORMONE (TSH) 0.916 uIU/mL (0.358-3.74)
[2017-08-20 16:48] LABS: LACTIC ACID 10.7 mmol/L (0.4-2.0)
[2017-08-20 16:51] LABS: BASE EXCESS COOX -5 mmol/L (-3-3); CARBON MONOXIDE 0.6 % (0.0-1.9); HCO3 COOX 16 mmol/L (21-28); OXYHEMOGLOBIN 94.5 %; PH COOX 7.53 (7.35-7.45); PO2 COOX 72 mmHg (65-108); SAT O2 COOX 95 % (92-99); TOTAL HEMOGLOBIN 14.4 g/dL
[2017-08-20 16:54] LABS: PCO2 COOX 19 mmHg (35-46)
[2017-08-20] MEDS: ASPIRIN CHEWABLE 81 MG TABLET. PO ×2 (17:15→19:39)
[2017-08-20 17:19] LABS: NT-PRO BNP 11581 pg/mL (0-124)
[2017-08-20 17:19] LABS: CKMB INDEX 2.9 % (0-4); CKMB MASS 6.6 ng/mL (0.0-3.6); CREATINE KINASE 225 U/L (26-192)
[2017-08-20 17:32] LABS: PARTIAL THROMBOPLASTIN TIME 28 SEC (24-38)
[2017-08-20 17:46] LABS: % BANDS 1 % (0-9); % LYMPHS 9 % (24-48); % MONOS 3 % (0-10); % SEGS 87 % (35-66); PLT ESTIMATE INCREASED (ADEQUATE)
[2017-08-20] MEDS ORDERED: ONDANSETRON PF 4 MG/2 ML VIAL. IV (18:00)
[2017-08-20] MEDS: cefTRIAXone IV Push 2 GM VIAL. IVP ×2 (18:13→19:38)
[2017-08-20] MEDS: IV NORMAL SALINE 1000ML BAG 1,000 ML IV ×3 (19:37→21:53)
[2017-08-20] MEDS: VANCOMYCIN 1GM IVPB FOR OMNI 250 ML IV (19:38)
[2017-08-20] MEDS: HEPARIN for IV BOLUS 10,000 UNIT/10 ML VIAL. IV (19:39)
[2017-08-20 19:47] LABS: TROPONINI 8.194 ng/mL (0.000-0.055)
[2017-08-20 19:50] LABS: LACTIC ACID 3.4 mmol/L (0.4-2.0)
[2017-08-20] MEDS: QUEtiapine 25 MG TABLET. PO (21:00)
[2017-08-20] MEDS: hydroCHLOROthiazide 12.5 MG CAPSULE PO (21:00)
[2017-08-20] MEDS: HEPARIN 25,000UTS/500ML PREMIX 500 ML IV (21:56)
[2017-08-20] MEDS: IV NORMAL SALINE 500ML BAG 500 ML IV (22:07)
[2017-08-21] MEDS: MORPHINE SULFATE 2 MG/ML DISP.SYRIN. IV ×6 (00:37→22:23)
[2017-08-21] MEDS: ACETAMINOPHEN 325 MG SUPP.RECT. PR (00:37)
[2017-08-21 01:20] LABS: ADD MAN DIFF? NO
[2017-08-21 01:22] LABS: BASO # 0.1 x10^3/uL (0.0-0.2); BASO % 0 % (0-3); EOS % 0 % (0-3); HEMATOCRIT 36.8 % (36.0-47.0); HEMOGLOBIN 12.7 g/dL (12.0-15.5); LYMPH % 12 % (24-48); MEAN CORPUSCULAR HEMOGLOBIN 32 pg (25-35); MEAN CORPUSCULAR HGB CONC 35 g/dL (31-37); MEAN CORPUSCULAR VOLUME 92 fL (79-100); MONO # 1.3 x10^3/uL (0.0-1.1); MONO % 8 % (0-9); NEUT # 12.7 x10^3uL (1.8-7.7); NEUT % 79 % (31-73); PLATELET COUNT 467 x10^3/uL (140-400); RED BLOOD COUNT 4.02 x10^6/uL (3.50-5.40); RED CELL DISTRIBUTION WIDTH 13.6 % (11.5-14.5)
[2017-08-21 01:45] LABS: ALBUMIN 2.9 g/dL (3.4-5.0); ALBUMIN/GLOBULIN RATIO 0.7 (1.0-1.7); ALK PHOS 83 U/L (46-116); ALT (SGPT) 15 U/L (14-59); ANION GAP 18 (6-14); AST (SGOT) 57 U/L (15-37); BLOOD UREA NITROGEN 17 mg/dL (7-20); BUN/CREATININE RATIO 14 (6-20); CALCIUM 7.9 mg/dL (8.5-10.1); CARBON DIOXIDE 18 mmol/L (21-32); CHLORIDE 105 mmol/L (98-107); CREATININE 1.2 mg/dL (0.6-1.0); GFR 45.1; GLUCOSE 114 mg/dL (70-99); SODIUM 141 mmol/L (136-145); TOTAL BILIRUBIN 0.3 mg/dL (0.2-1.0); TOTAL PROTEIN 7.2 g/dL (6.4-8.2)
[2017-08-21 01:49] LABS: LACTIC ACID 1.5 mmol/L (0.4-2.0); TROPONINI 12.747 ng/mL (0.000-0.055)
[2017-08-21 01:54] LABS: VITAMIN-B12 725 pg/mL (247-911)
[2017-08-21 04:25] LABS: UNFRACTIONATED HEPARIN TESTING 0.17 IU/mL (0.30-0.70)
[2017-08-21] MEDS: HEPARIN for IV BOLUS 10,000 UNIT/10 ML VIAL. IV ×2 (04:43→21:49)
[2017-08-21] MEDS ORDERED: ONDANSETRON ODT 4 MG TAB.RAPDIS. PO (08:00)
[2017-08-21] MEDS ORDERED: ONDANSETRON PF 4 MG/2 ML VIAL. IV (08:00)
[2017-08-21] MEDS: SODIUM BICARBONATE VIAL 100 MEQ in IV 1/2 NORMAL SALINE 1,000 ML IV (09:24)
[2017-08-21] MEDS: ANTI-COAG MONITOR BY PHARMACY. MC (09:30)
[2017-08-21] MEDS: VANCOMYCIN PER PHARMACY MC (10:38)
[2017-08-21 10:50] LABS: UNFRACTIONATED HEPARIN TESTING 0.49 IU/mL (0.30-0.70)
[2017-08-21] MEDS: HYDROcodone/APAP 5/325MG 1 TAB TABLET PO ×2 (11:35→19:48)
[2017-08-21] MEDS: VANCOMYCIN 1 GM in IV 1/2 NORMAL SALINE 250 ML IV (11:45)
[2017-08-21] MEDS: POTASSIUM CHLORIDE 20 MEQ/15 ML ORAL LIQUID. PEG (12:40)
[2017-08-21 13:39] LABS: TROPONINI 6.945 ng/mL (0.000-0.055)
[2017-08-21] MEDS ORDERED: LIDOCAINE 2% PF Vial for OR 5 ML VIAL. (13:41)
[2017-08-21] MEDS ORDERED: PROPOFOL 20 ML IV (13:41)
[2017-08-21] MEDS ORDERED: fentaNYL PF VIAL 100 MCG/2 ML VIAL ×3 (13:42→15:38)
[2017-08-21] MEDS ORDERED: ONDANSETRON PF 4 MG/2 ML VIAL. (15:29)
[2017-08-21] MEDS ORDERED: PHENYLEPHRINE in 0.9% NACL PF 1 MG/10 ML SYRINGE. IV (15:59)
[2017-08-21] MEDS ORDERED: cefTRIAXone SODIUM 2 GM in IV DEXTROSE 5% 100ML 100 ML IV (18:00)
[2017-08-21 21:34] LABS: UNFRACTIONATED HEPARIN TESTING < 0.10 IU/mL (0.30-0.70)
[2017-08-21] MEDS: QUEtiapine 25 MG TABLET. PO (21:38)
[2017-08-21] MEDS: CITALOPRAM 20 MG TABLET. PO (21:38)
[2017-08-21] MEDS: hydroCHLOROthiazide 12.5 MG CAPSULE PO (21:38)
[2017-08-21 22:16] LABS: MRSA BY PCR Negative (Negative)
[2017-08-22] MEDS: MORPHINE SULFATE 2 MG/ML DISP.SYRIN. IV ×5 (02:09→14:55)
[2017-08-22] MEDS: HEPARIN 25,000UTS/500ML PREMIX 500 ML IV (02:10)
[2017-08-22 04:17] LABS: ADD MAN DIFF? NO
[2017-08-22 04:31] LABS: BASO # 0.1 x10^3/uL (0.0-0.2); BASO % 1 % (0-3); EOS # 0.1 x10^3/uL (0.0-0.7); EOS % 1 % (0-3); HEMATOCRIT 31.1 % (36.0-47.0); HEMOGLOBIN 10.5 g/dL (12.0-15.5); LYMPH # 3.3 x10^3/uL (1.0-4.8); LYMPH % 26 % (24-48); MEAN CORPUSCULAR HEMOGLOBIN 31 pg (25-35); MEAN CORPUSCULAR HGB CONC 34 g/dL (31-37); MEAN CORPUSCULAR VOLUME 93 fL (79-100); MONO # 0.9 x10^3/uL (0.0-1.1); MONO % 7 % (0-9); NEUT # 8.1 x10^3uL (1.8-7.7); NEUT % 65 % (31-73); PLATELET COUNT 357 x10^3/uL (140-400); RED BLOOD COUNT 3.35 x10^6/uL (3.50-5.40); RED CELL DISTRIBUTION WIDTH 13.6 % (11.5-14.5); WHITE BLOOD COUNT 12.5 x10^3/uL (4.0-11.0)
[2017-08-22 04:45] LABS: ANION GAP 9 (6-14); BLOOD UREA NITROGEN 15 mg/dL (7-20); CALCIUM 7.2 mg/dL (8.5-10.1); CARBON DIOXIDE 26 mmol/L (21-32); CHLORIDE 105 mmol/L (98-107); CREATININE 1.2 mg/dL (0.6-1.0); GFR 45.1; GLUCOSE 89 mg/dL (70-99); MAGNESIUM 1.4 mg/dL (1.8-2.4); SODIUM 140 mmol/L (136-145)
[2017-08-22 04:53] LABS: UNFRACTIONATED HEPARIN TESTING 0.64 IU/mL (0.30-0.70)
[2017-08-22] MEDS: ANTI-COAG MONITOR BY PHARMACY. MC (07:28)
[2017-08-22] MEDS: VANCOMYCIN PER PHARMACY MC (07:40)
[2017-08-22] MEDS: HYDROcodone/APAP 5/325MG 1 TAB TABLET PO ×3 (07:42→19:17)
[2017-08-22] MEDS: BENZOCAINE ONE 20% MUCOSAL SPRAY. MM (10:47)
[2017-08-22] MEDS: LIDOCAINE 2% VISCOUS 15 ML SOLUTION. MM (10:49)
[2017-08-22] MEDS: LACTOBACILLUS RHAMNOSUS GG 1 CAPSULE. PO ×2 (10:51→21:16)
[2017-08-22] MEDS: MAGNESIUM SULFATE 2GM 50 ML IV (10:51)
[2017-08-22] MEDS: POTASSIUM CHLORIDE 20 MEQ TABLET.ER. PO ×2 (10:52→11:00)
[2017-08-22] MEDS: LIDOCAINE 2% TOPICAL JELLY 5GM TUBE. TP (10:52)
[2017-08-22] MEDS: MULTIVITAMIN with MINERAL TABLET. PO (12:00)
[2017-08-22 12:01] LABS: UNFRACTIONATED HEPARIN TESTING 0.51 IU/mL (0.30-0.70)
[2017-08-22] MEDS: VANCOMYCIN 1 GM in IV 1/2 NORMAL SALINE 250 ML IV (17:15)
[2017-08-22 17:51] LABS: UNFRACTIONATED HEPARIN TESTING < 0.10 IU/mL (0.30-0.70)
[2017-08-22] MEDS: cefTRIAXone IV Push 2 GM VIAL. IVP (19:18)
[2017-08-22] MEDS: HEPARIN for IV BOLUS 10,000 UNIT/10 ML VIAL. IV (19:18)
[2017-08-22] MEDS: hydroCHLOROthiazide 12.5 MG CAPSULE PO (21:16)
[2017-08-22] MEDS: CITALOPRAM 20 MG TABLET. PO (21:16)
[2017-08-22] MEDS: QUEtiapine 25 MG TABLET. PO (21:16)
[2017-08-22] MEDS: ASCORBIC ACID 500 MG TABLET PO (21:16)
[2017-08-22 21:34] LABS: UNFRACTIONATED HEPARIN TESTING 0.74 IU/mL (0.30-0.70)
[2017-08-23] MEDS: HYDROcodone/APAP 5/325MG 1 TAB TABLET PO ×5 (02:36→23:35)
[2017-08-23 02:55] LABS: ADD MAN DIFF? NO
[2017-08-23 03:00] LABS: BASO # 0.1 x10^3/uL (0.0-0.2); BASO % 1 % (0-3); EOS # 0.3 x10^3/uL (0.0-0.7); EOS % 3 % (0-3); HEMOGLOBIN 9.7 g/dL (12.0-15.5); LYMPH # 2.9 x10^3/uL (1.0-4.8); LYMPH % 25 % (24-48); MEAN CORPUSCULAR HEMOGLOBIN 32 pg (25-35); MEAN CORPUSCULAR HGB CONC 35 g/dL (31-37); MEAN CORPUSCULAR VOLUME 93 fL (79-100); MONO # 0.8 x10^3/uL (0.0-1.1); MONO % 7 % (0-9); NEUT # 7.4 x10^3uL (1.8-7.7); NEUT % 64 % (31-73); PLATELET COUNT 347 x10^3/uL (140-400); RED BLOOD COUNT 3.02 x10^6/uL (3.50-5.40); WHITE BLOOD COUNT 11.6 x10^3/uL (4.0-11.0)
[2017-08-23 03:09] LABS: UNFRACTIONATED HEPARIN TESTING 0.45 IU/mL (0.30-0.70)
[2017-08-23 03:37] LABS: ANION GAP 9 (6-14); BLOOD UREA NITROGEN 13 mg/dL (7-20); CALCIUM 7.3 mg/dL (8.5-10.1); CARBON DIOXIDE 25 mmol/L (21-32); CHLORIDE 105 mmol/L (98-107); CREATININE 0.9 mg/dL (0.6-1.0); GFR 62.8; GLUCOSE 93 mg/dL (70-99); POTASSIUM 3.4 mmol/L (3.5-5.1); SODIUM 139 mmol/L (136-145)
[2017-08-23 03:38] LABS: MAGNESIUM 1.9 mg/dL (1.8-2.4)
[2017-08-23] MEDS: ANTI-COAG MONITOR BY PHARMACY. MC (10:12)
[2017-08-23 10:14] LABS: UNFRACTIONATED HEPARIN TESTING 0.31 IU/mL (0.30-0.70)
[2017-08-23] MEDS: MULTIVITAMIN with MINERAL TABLET. PO (13:49)
[2017-08-23] MEDS: ASCORBIC ACID 500 MG TABLET PO (13:49)
[2017-08-23] MEDS: LACTOBACILLUS RHAMNOSUS GG 1 CAPSULE. PO ×2 (13:50→20:53)
[2017-08-23] MEDS: POTASSIUM CHLORIDE 20 MEQ TABLET.ER. PO (13:50)
[2017-08-23] MEDS: MAGNESIUM OXIDE 400 MG TABLET PO (13:50)
[2017-08-23] MEDS: VANCOMYCIN PER PHARMACY MC ×2 (17:15→17:41)
[2017-08-23 17:23] LABS: VANC TR 11.1 mcg/mL (10.0-20.0)
[2017-08-23] MEDS: cefTRIAXone IV Push 2 GM VIAL. IVP (17:50)
[2017-08-23] MEDS: VANCOMYCIN 1 GM in IV NORMAL SALINE 250ML 250 ML IV (18:00)
[2017-08-23] MEDS: MORPHINE SULFATE 2 MG/ML DISP.SYRIN. IV (20:51)
[2017-08-23] MEDS: CITALOPRAM 20 MG TABLET. PO (20:55)
[2017-08-23] MEDS: QUEtiapine 25 MG TABLET. PO (20:56)
[2017-08-23] MEDS: hydroCHLOROthiazide 12.5 MG CAPSULE PO (20:56)
[2017-08-23] MEDS: NICOTINE 14MG PATCH. TD (22:53)
[2017-08-23] MEDS: HEPARIN 25,000UTS/500ML PREMIX 500 ML IV (22:57)
[2017-08-24] MEDS: MORPHINE SULFATE 2 MG/ML DISP.SYRIN. IV ×7 (03:08→22:11)
[2017-08-24 04:43] LABS: ADD MAN DIFF? NO
[2017-08-24] MEDS: HYDROcodone/APAP 5/325MG 1 TAB TABLET PO (04:44)
[2017-08-24 04:45] LABS: BASO # 0.1 x10^3/uL (0.0-0.2); BASO % 1 % (0-3); EOS # 0.6 x10^3/uL (0.0-0.7); EOS % 5 % (0-3); HEMATOCRIT 29.1 % (36.0-47.0); HEMOGLOBIN 9.8 g/dL (12.0-15.5); LYMPH # 3.1 x10^3/uL (1.0-4.8); LYMPH % 26 % (24-48); MEAN CORPUSCULAR HEMOGLOBIN 32 pg (25-35); MEAN CORPUSCULAR HGB CONC 34 g/dL (31-37); MEAN CORPUSCULAR VOLUME 94 fL (79-100); MONO # 0.7 x10^3/uL (0.0-1.1); MONO % 6 % (0-9); NEUT # 7.5 x10^3uL (1.8-7.7); NEUT % 63 % (31-73); PLATELET COUNT 353 x10^3/uL (140-400); RED BLOOD COUNT 3.11 x10^6/uL (3.50-5.40); RED CELL DISTRIBUTION WIDTH 13.8 % (11.5-14.5)
[2017-08-24 05:02] LABS: UNFRACTIONATED HEPARIN TESTING 0.33 IU/mL (0.30-0.70)
[2017-08-24 05:17] LABS: ALBUMIN 2.4 g/dL (3.4-5.0); ANION GAP 9 (6-14); BLOOD UREA NITROGEN 9 mg/dL (7-20); CARBON DIOXIDE 25 mmol/L (21-32); CHLORIDE 105 mmol/L (98-107); GFR 55.6; GLUCOSE 94 mg/dL (70-99); PHOSPHORUS 3.7 mg/dL (2.6-4.7); POTASSIUM 3.2 mmol/L (3.5-5.1); SODIUM 139 mmol/L (136-145)
[2017-08-24 06:25] LABS: C DIFF BY PCR Negative (Negative)
[2017-08-24] MEDS: IV RINGERS,LACTATED 1000ML 1,000 ML IV ×2 (07:00→14:40)
[2017-08-24] MEDS ORDERED: BENZOCAINE ONE 20% MUCOSAL SPRAY. (08:43)
[2017-08-24] MEDS ORDERED: LIDOCAINE 2% TOPICAL JELLY 5GM TUBE. TP ×2 (08:43→08:51)
[2017-08-24] MEDS ORDERED: LIDOCAINE 2% VISCOUS 15 ML SOLUTION. (08:44)
[2017-08-24] MEDS: LACTOBACILLUS RHAMNOSUS GG 1 CAPSULE. PO ×2 (09:00→20:33)
[2017-08-24] MEDS: NICOTINE 14MG PATCH. TD (09:00)
[2017-08-24] MEDS ORDERED: HYDROcodone/APAP 5/325MG 1 TAB TABLET PO (09:45)
[2017-08-24] MEDS ORDERED: PROPOFOL 40 ML IV (09:50)
[2017-08-24] MEDS: HYDROcodone/APAP 10/325 1 TAB TABLET PO ×3 (09:59→22:32)
[2017-08-24] MEDS: VANCOMYCIN PER PHARMACY MC (10:05)
[2017-08-24] MEDS: ANTI-COAG MONITOR BY PHARMACY. MC (10:18)
[2017-08-24] MEDS: LIDOCAINE 2% TOPICAL JELLY 5GM TUBE. TP (10:52)
[2017-08-24] MEDS ORDERED: IPRATRPIUM/ALBUTEROL 0.5/2.5MG 3 ML NEBU. (12:01)
[2017-08-24] MEDS: IPRATRPIUM/ALBUTEROL 0.5/2.5MG 3 ML NEBU. NEB (12:06)
[2017-08-24] MEDS: FUROSEMIDE 40 MG/4 ML VIAL. IVP (13:20)
[2017-08-24] MEDS ORDERED: LIDOCAINE 1% PF 2 ML VIAL. ID (13:30)
[2017-08-24] MEDS ORDERED: MORPHINE SULFATE 2 MG/ML DISP.SYRIN. IV (13:30)
[2017-08-24] MEDS ORDERED: PROCHLORPERAZINE 10 MG/2 ML VIAL. IV (13:30)
[2017-08-24] MEDS ORDERED: fentaNYL PF VIAL 100 MCG/2 ML VIAL IV ×2 (13:30)
[2017-08-24] MEDS: VANCOMYCIN 1 GM in IV NORMAL SALINE 250ML 250 ML IV (14:39)
[2017-08-24] MEDS: ASCORBIC ACID 500 MG TABLET PO (15:09)
[2017-08-24] MEDS: MAGNESIUM OXIDE 400 MG TABLET PO (15:09)
[2017-08-24] MEDS: MULTIVITAMIN with MINERAL TABLET. PO (15:09)
[2017-08-24] MEDS: POTASSIUM CHLORIDE 20 MEQ TABLET.ER. PO ×2 (15:10→17:38)
[2017-08-24] MEDS: WARFARIN 10 MG TABLET. PO (16:33)
[2017-08-24] MEDS: cefTRIAXone IV Push 2 GM VIAL. IVP (17:35)
[2017-08-24] MEDS: SIMVASTATIN 10 MG TABLET PO (20:33)
[2017-08-24] MEDS: hydroCHLOROthiazide 12.5 MG CAPSULE PO (20:33)
[2017-08-24] MEDS: QUEtiapine 25 MG TABLET. PO (20:34)
[2017-08-24] MEDS: CITALOPRAM 20 MG TABLET. PO (20:34)
[2017-08-25] MEDS: MORPHINE SULFATE 2 MG/ML DISP.SYRIN. IV ×8 (01:46→21:54)
[2017-08-25] MEDS: HYDROcodone/APAP 10/325 1 TAB TABLET PO ×3 (04:39→17:05)
[2017-08-25] MEDS: VANCOMYCIN 1 GM in IV NORMAL SALINE 250ML 250 ML IV (06:08)
[2017-08-25 06:24] LABS: UNFRACTIONATED HEPARIN TESTING 0.14 IU/mL (0.30-0.70)
[2017-08-25 06:30] LABS: CHOLESTEROL 169 mg/dL (0-200); HDLC 57 mg/dL (40-60); LDLC 94 mg/dL (0-100); NON-HDL CHOLESTEROL 112 mg/dL (0-129); TRIGLYCERIDES 92 mg/dL (0-150); VLDLC 18 mg/dL (0-40)
[2017-08-25] MEDS: ASCORBIC ACID 500 MG TABLET PO (09:06)
[2017-08-25] MEDS: MAGNESIUM OXIDE 400 MG TABLET PO (09:06)
[2017-08-25] MEDS: POTASSIUM CHLORIDE 20 MEQ TABLET.ER. PO (09:06)
[2017-08-25] MEDS: MULTIVITAMIN with MINERAL TABLET. PO (09:06)
[2017-08-25] MEDS: LACTOBACILLUS RHAMNOSUS GG 1 CAPSULE. PO ×2 (09:07→19:55)
[2017-08-25] MEDS: NICOTINE 14MG PATCH. TD (09:07)
[2017-08-25] MEDS: HEPARIN 25,000UTS/500ML PREMIX 500 ML IV (09:13)
[2017-08-25] MEDS: CEFEPIME HCL IV Push 2 GM VIAL. IVP ×2 (10:55→19:55)
[2017-08-25] MEDS: LISINOPRIL 10 MG TABLET PO (11:09)
[2017-08-25] MEDS: GABAPENTIN 300 MG CAPSULE. PO ×2 (11:10→19:57)
[2017-08-25] MEDS: VANCOMYCIN PER PHARMACY MC (15:28)
[2017-08-25] MEDS: WARFARIN 7.5 MG TABLET. PO (17:05)
[2017-08-25] MEDS: CITALOPRAM 20 MG TABLET. PO (19:55)
[2017-08-25] MEDS: hydroCHLOROthiazide 12.5 MG CAPSULE PO (19:56)
[2017-08-25] MEDS: SIMVASTATIN 10 MG TABLET PO (19:56)
[2017-08-25] MEDS: QUEtiapine 25 MG TABLET. PO (19:56)
[2017-08-25] MEDS ORDERED: CEFEPIME HCL 2 GM in IV DEXTROSE 5% 100ML 100 ML IV (21:00)
[2017-08-25] MEDS: traMADol 50 MG TABLET PO (21:53)
[2017-08-26] MEDS: HYDROcodone/APAP 10/325 1 TAB TABLET PO ×3 (03:08→15:40)
[2017-08-26] MEDS: MORPHINE SULFATE 2 MG/ML DISP.SYRIN. IV ×6 (03:09→20:14)
[2017-08-26] MEDS: HEPARIN 25,000UTS/500ML PREMIX 500 ML IV ×2 (03:25→20:25)
[2017-08-26 05:13] LABS: UNFRACTIONATED HEPARIN TESTING 0.41 IU/mL (0.30-0.70)
[2017-08-26 05:43] LABS: INR 2.2 (0.8-1.1); PROTHROMBIN TIME PATIENT 24.1 SEC (11.7-14.0)
[2017-08-26] MEDS: LISINOPRIL 10 MG TABLET PO (08:16)
[2017-08-26] MEDS: traMADol 50 MG TABLET PO ×3 (08:16→21:50)
[2017-08-26] MEDS: POTASSIUM CHLORIDE 20 MEQ TABLET.ER. PO (08:16)
[2017-08-26] MEDS: LACTOBACILLUS RHAMNOSUS GG 1 CAPSULE. PO ×2 (08:16→20:15)
[2017-08-26] MEDS: MULTIVITAMIN with MINERAL TABLET. PO (08:16)
[2017-08-26] MEDS: GABAPENTIN 300 MG CAPSULE. PO ×2 (08:16→20:15)
[2017-08-26] MEDS: MAGNESIUM OXIDE 400 MG TABLET PO (08:17)
[2017-08-26] MEDS: ASCORBIC ACID 500 MG TABLET PO (08:17)
[2017-08-26] MEDS: NICOTINE 14MG PATCH. TD (08:18)
[2017-08-26] MEDS: CEFEPIME HCL IV Push 2 GM VIAL. IVP ×2 (09:13→20:14)
[2017-08-26] MEDS ORDERED: MAGNESIUM HYDROXIDE 2,400 MG/30 ML ORAL.SUSP. PO (11:00)
[2017-08-26] MEDS: DOCUSATE SODIUM 100 MG CAPSULE. PO (12:11)
[2017-08-26] MEDS: POLYETHYLENE GLYCOL 3350 17 GM PACKET. PO (12:11)
[2017-08-26] MEDS: WARFARIN 5 MG TABLET. PO (15:39)
[2017-08-26] MEDS ORDERED: WARFARIN 7.5 MG TABLET. PO (16:00)
[2017-08-26] MEDS: VANCOMYCIN PER PHARMACY MC (17:19)
[2017-08-26] MEDS: VANCOMYCIN 1 GM in IV NORMAL SALINE 250ML 250 ML IV ×2 (17:46)
[2017-08-26] MEDS: CITALOPRAM 20 MG TABLET. PO (20:15)
[2017-08-26] MEDS: QUEtiapine 25 MG TABLET. PO (20:15)
[2017-08-26] MEDS: SIMVASTATIN 10 MG TABLET PO (20:15)
[2017-08-26] MEDS: hydroCHLOROthiazide 12.5 MG CAPSULE PO (20:15)
[2017-08-27] MEDS: MORPHINE SULFATE 2 MG/ML DISP.SYRIN. IV ×6 (02:56→20:10)
[2017-08-27 03:52] LABS: UNFRACTIONATED HEPARIN TESTING 0.42 IU/mL (0.30-0.70)
[2017-08-27 05:26] LABS: INR 2.5 (0.8-1.1); PROTHROMBIN TIME PATIENT 26.4 SEC (11.7-14.0)
[2017-08-27] MEDS: HYDROcodone/APAP 10/325 1 TAB TABLET PO ×4 (05:36→22:14)
[2017-08-27] MEDS: NICOTINE 14MG PATCH. TD ×2 (08:28→09:00)
[2017-08-27] MEDS: MULTIVITAMIN with MINERAL TABLET. PO (08:29)
[2017-08-27] MEDS: DOCUSATE SODIUM 100 MG CAPSULE. PO (08:29)
[2017-08-27] MEDS: MAGNESIUM OXIDE 400 MG TABLET PO (08:29)
[2017-08-27] MEDS: ASCORBIC ACID 500 MG TABLET PO (08:29)
[2017-08-27] MEDS: POTASSIUM CHLORIDE 20 MEQ TABLET.ER. PO (08:30)
[2017-08-27] MEDS: LISINOPRIL 10 MG TABLET PO (08:30)
[2017-08-27] MEDS: LACTOBACILLUS RHAMNOSUS GG 1 CAPSULE. PO ×2 (08:30→20:08)
[2017-08-27] MEDS: GABAPENTIN 300 MG CAPSULE. PO ×2 (08:30→20:09)
[2017-08-27] MEDS: CEFEPIME HCL IV Push 2 GM VIAL. IVP ×2 (08:57→22:15)
[2017-08-27] MEDS: POLYETHYLENE GLYCOL 3350 17 GM PACKET. PO (09:00)
[2017-08-27 09:27] LABS: ADD MAN DIFF? NO
[2017-08-27 09:37] LABS: BASO # 0.1 x10^3/uL (0.0-0.2); BASO % 1 % (0-3); EOS # 0.4 x10^3/uL (0.0-0.7); EOS % 5 % (0-3); HEMATOCRIT 28.2 % (36.0-47.0); HEMOGLOBIN 9.7 g/dL (12.0-15.5); LYMPH # 2.3 x10^3/uL (1.0-4.8); LYMPH % 33 % (24-48); MEAN CORPUSCULAR HEMOGLOBIN 33 pg (25-35); MEAN CORPUSCULAR HGB CONC 35 g/dL (31-37); MEAN CORPUSCULAR VOLUME 95 fL (79-100); MONO # 0.8 x10^3/uL (0.0-1.1); MONO % 12 % (0-9); NEUT # 3.5 x10^3uL (1.8-7.7); NEUT % 50 % (31-73); PLATELET COUNT 332 x10^3/uL (140-400); RED BLOOD COUNT 2.97 x10^6/uL (3.50-5.40); RED CELL DISTRIBUTION WIDTH 14.7 % (11.5-14.5); WHITE BLOOD COUNT 7.1 x10^3/uL (4.0-11.0)
[2017-08-27 10:11] LABS: ALBUMIN 2.3 g/dL (3.4-5.0); ALBUMIN/GLOBULIN RATIO 0.6 (1.0-1.7); ALK PHOS 71 U/L (46-116); ALT (SGPT) 10 U/L (14-59); ANION GAP 7 (6-14); AST (SGOT) 16 U/L (15-37); BLOOD UREA NITROGEN 13 mg/dL (7-20); BUN/CREATININE RATIO 12 (6-20); CALCIUM 8.4 mg/dL (8.5-10.1); CARBON DIOXIDE 27 mmol/L (21-32); CHLORIDE 100 mmol/L (98-107); CREATININE 1.1 mg/dL (0.6-1.0); GFR 49.8; GLUCOSE 74 mg/dL (70-99); POTASSIUM 4.4 mmol/L (3.5-5.1); SODIUM 134 mmol/L (136-145); TOTAL BILIRUBIN 0.2 mg/dL (0.2-1.0); TOTAL PROTEIN 6.2 g/dL (6.4-8.2)
[2017-08-27] MEDS: ANTI-COAG MONITOR BY PHARMACY. MC (11:19)
[2017-08-27] MEDS: VANCOMYCIN 1 GM in IV NORMAL SALINE 250ML 250 ML IV (12:27)
[2017-08-27] MEDS: traMADol 50 MG TABLET PO (12:29)
[2017-08-27 12:35] LABS: C-REACTIVE PROTEIN 117.5 mg/L (0-3.3)
[2017-08-27 13:33] LABS: SEDIMENTATION RATE 94 (0-25)
[2017-08-27] MEDS: HEPARIN 25,000UTS/500ML PREMIX 500 ML IV (15:53)
[2017-08-27] MEDS: QUEtiapine 25 MG TABLET. PO (20:08)
[2017-08-27] MEDS: CITALOPRAM 20 MG TABLET. PO (20:08)
[2017-08-27] MEDS: hydroCHLOROthiazide 12.5 MG CAPSULE PO (20:08)
[2017-08-27] MEDS: ALTEPLASE 2 MG VIAL INT CAT (20:08)
[2017-08-27] MEDS: SIMVASTATIN 10 MG TABLET PO (20:09)
[2017-08-28] MEDS: MORPHINE SULFATE 2 MG/ML DISP.SYRIN. IV ×5 (03:22→20:37)
[2017-08-28] MEDS: HYDROcodone/APAP 10/325 1 TAB TABLET PO ×3 (05:58→17:52)
[2017-08-28 06:15] LABS: ADD MAN DIFF? NO
[2017-08-28 06:16] LABS: BASO # 0.1 x10^3/uL (0.0-0.2); BASO % 1 % (0-3); EOS # 0.6 x10^3/uL (0.0-0.7); EOS % 5 % (0-3); HEMATOCRIT 27.6 % (36.0-47.0); HEMOGLOBIN 9.4 g/dL (12.0-15.5); LYMPH # 2.9 x10^3/uL (1.0-4.8); LYMPH % 24 % (24-48); MEAN CORPUSCULAR HEMOGLOBIN 32 pg (25-35); MEAN CORPUSCULAR HGB CONC 34 g/dL (31-37); MEAN CORPUSCULAR VOLUME 95 fL (79-100); MONO # 1.3 x10^3/uL (0.0-1.1); MONO % 10 % (0-9); NEUT # 7.3 x10^3uL (1.8-7.7); NEUT % 60 % (31-73); PLATELET COUNT 340 x10^3/uL (140-400); RED BLOOD COUNT 2.92 x10^6/uL (3.50-5.40); RED CELL DISTRIBUTION WIDTH 14.5 % (11.5-14.5); WHITE BLOOD COUNT 12.2 x10^3/uL (4.0-11.0)
[2017-08-28 06:54] LABS: ANION GAP 4 (6-14); BLOOD UREA NITROGEN 16 mg/dL (7-20); CALCIUM 8.3 mg/dL (8.5-10.1); CARBON DIOXIDE 28 mmol/L (21-32); CHLORIDE 98 mmol/L (98-107); CREATININE 1.2 mg/dL (0.6-1.0); GFR 45.1; GLUCOSE 246 mg/dL (70-99); POTASSIUM 4.6 mmol/L (3.5-5.1); SODIUM 130 mmol/L (136-145)
[2017-08-28 07:47] LABS: INR 2.2 (0.8-1.1)
[2017-08-28 07:48] LABS: UNFRACTIONATED HEPARIN TESTING 0.24 IU/mL (0.30-0.70)
[2017-08-28] MEDS: CEFEPIME HCL IV Push 2 GM VIAL. IVP ×2 (08:15→20:37)
[2017-08-28] MEDS: DOCUSATE SODIUM 100 MG CAPSULE. PO (08:15)
[2017-08-28] MEDS: MAGNESIUM OXIDE 400 MG TABLET PO (08:15)
[2017-08-28] MEDS: ASCORBIC ACID 500 MG TABLET PO (08:16)
[2017-08-28] MEDS: LACTOBACILLUS RHAMNOSUS GG 1 CAPSULE. PO ×2 (08:16→20:36)
[2017-08-28] MEDS: POTASSIUM CHLORIDE 20 MEQ TABLET.ER. PO (08:16)
[2017-08-28] MEDS: traMADol 50 MG TABLET PO ×2 (08:16→15:30)
[2017-08-28] MEDS: LISINOPRIL 10 MG TABLET PO (08:17)
[2017-08-28] MEDS: MULTIVITAMIN with MINERAL TABLET. PO (08:17)
[2017-08-28] MEDS: POLYETHYLENE GLYCOL 3350 17 GM PACKET. PO (08:17)
[2017-08-28] MEDS: GABAPENTIN 300 MG CAPSULE. PO ×2 (08:17→20:36)
[2017-08-28] MEDS: NICOTINE 14MG PATCH. TD (08:17)
[2017-08-28] MEDS ORDERED: CONTRAST GIVEN. MC (08:45)
[2017-08-28] MEDS: IOHEXOL 300 MG/ML 100ML VIAL. IV (08:45)
[2017-08-28] MEDS: ANTI-COAG MONITOR BY PHARMACY. MC (08:50)
[2017-08-28] MEDS: ASPIRIN ENTERIC COATED 81 MG TABLET.DR. PO (12:05)
[2017-08-28] MEDS: HEPARIN 25,000UTS/500ML PREMIX 500 ML IV (12:20)
[2017-08-28] MEDS: QUEtiapine 25 MG TABLET. PO (20:36)
[2017-08-28] MEDS: CITALOPRAM 20 MG TABLET. PO (20:36)
[2017-08-28] MEDS: SIMVASTATIN 10 MG TABLET PO (20:36)
[2017-08-28] MEDS: hydroCHLOROthiazide 12.5 MG CAPSULE PO (20:36)
[2017-08-29] MEDS: HEPARIN 25,000UTS/500ML PREMIX 500 ML IV ×2 (05:52→22:57)
[2017-08-29 06:46] LABS: ADD MAN DIFF? NO
[2017-08-29 07:05] LABS: ANION GAP 7 (6-14); BLOOD UREA NITROGEN 17 mg/dL (7-20); CALCIUM 8.5 mg/dL (8.5-10.1); CARBON DIOXIDE 26 mmol/L (21-32); CHLORIDE 101 mmol/L (98-107); CREATININE 1.2 mg/dL (0.6-1.0); GFR 45.1; GLUCOSE 84 mg/dL (70-99); POTASSIUM 4.8 mmol/L (3.5-5.1); SODIUM 134 mmol/L (136-145)
[2017-08-29 07:16] LABS: BASO # 0.1 x10^3/uL (0.0-0.2); BASO % 1 % (0-3); EOS # 0.3 x10^3/uL (0.0-0.7); EOS % 4 % (0-3); LYMPH # 1.7 x10^3/uL (1.0-4.8); LYMPH % 23 % (24-48); MEAN CORPUSCULAR HEMOGLOBIN 32 pg (25-35); MEAN CORPUSCULAR HGB CONC 35 g/dL (31-37); MEAN CORPUSCULAR VOLUME 94 fL (79-100); MONO # 0.6 x10^3/uL (0.0-1.1); MONO % 8 % (0-9); NEUT # 4.8 x10^3uL (1.8-7.7); NEUT % 65 % (31-73); PLATELET COUNT 369 x10^3/uL (140-400); RED BLOOD COUNT 3.09 x10^6/uL (3.50-5.40); RED CELL DISTRIBUTION WIDTH 14.5 % (11.5-14.5); WHITE BLOOD COUNT 7.5 x10^3/uL (4.0-11.0)
[2017-08-29] MEDS: HYDROcodone/APAP 10/325 1 TAB TABLET PO (07:21)
[2017-08-29 07:36] LABS: INR 1.9 (0.8-1.1); PROTHROMBIN TIME PATIENT 21.2 SEC (11.7-14.0)
[2017-08-29 07:48] LABS: UNFRACTIONATED HEPARIN TESTING < 0.10 IU/mL (0.30-0.70)
[2017-08-29] MEDS: POLYETHYLENE GLYCOL 3350 17 GM PACKET. PO (09:00)
[2017-08-29] MEDS: NICOTINE 14MG PATCH. TD (09:00)
[2017-08-29] MEDS: traMADol 50 MG TABLET PO ×2 (09:19→17:12)
[2017-08-29] MEDS: MULTIVITAMIN with MINERAL TABLET. PO (09:19)
[2017-08-29] MEDS: POTASSIUM CHLORIDE 20 MEQ TABLET.ER. PO (09:19)
[2017-08-29] MEDS: LACTOBACILLUS RHAMNOSUS GG 1 CAPSULE. PO ×2 (09:19→19:49)
[2017-08-29] MEDS: MAGNESIUM OXIDE 400 MG TABLET PO (09:19)
[2017-08-29] MEDS: DOCUSATE SODIUM 100 MG CAPSULE. PO (09:19)
[2017-08-29] MEDS: GABAPENTIN 300 MG CAPSULE. PO ×2 (09:19→19:49)
[2017-08-29] MEDS: ASPIRIN ENTERIC COATED 81 MG TABLET.DR. PO (09:19)
[2017-08-29] MEDS: ASCORBIC ACID 500 MG TABLET PO (09:19)
[2017-08-29] MEDS: LISINOPRIL 10 MG TABLET PO (09:20)
[2017-08-29] MEDS: CEFEPIME HCL IV Push 2 GM VIAL. IVP ×2 (09:20→19:52)
[2017-08-29] MEDS: HEPARIN for IV BOLUS 10,000 UNIT/10 ML VIAL. IV (09:27)
[2017-08-29] MEDS: oxyCODONE ER 10 MG TAB.ER.12H PO ×2 (11:23→19:51)
[2017-08-29] MEDS: ANTI-COAG MONITOR BY PHARMACY. MC (14:01)
[2017-08-29] MEDS: MORPHINE SULFATE 2 MG/ML DISP.SYRIN. IV ×2 (15:45→20:52)
[2017-08-29] MEDS: CITALOPRAM 20 MG TABLET. PO (19:49)
[2017-08-29] MEDS: QUEtiapine 25 MG TABLET. PO (19:49)
[2017-08-29] MEDS: SIMVASTATIN 10 MG TABLET PO (19:49)
[2017-08-29] MEDS: hydroCHLOROthiazide 12.5 MG CAPSULE PO (19:49)
[2017-08-29 20:27] LABS: SECOND ABO/RH TYPE 1 1
[2017-08-30 06:27] LABS: INR 1.5 (0.8-1.1); PROTHROMBIN TIME PATIENT 17.1 SEC (11.7-14.0)
[2017-08-30] MEDS ORDERED: PROCHLORPERAZINE 10 MG/2 ML VIAL. IV (07:00)
[2017-08-30] MEDS ORDERED: fentaNYL PF VIAL 100 MCG/2 ML VIAL IV ×2 (07:00)
[2017-08-30] MEDS ORDERED: MORPHINE SULFATE 2 MG/ML DISP.SYRIN. IV (07:00)
[2017-08-30] MEDS ORDERED: LIDOCAINE 1% PF 2 ML VIAL. ID (07:00)
[2017-08-30] MEDS ORDERED: IV RINGERS,LACTATED 1000ML 1,000 ML IV (07:00)
[2017-08-30] MEDS: LACTOBACILLUS RHAMNOSUS GG 1 CAPSULE. PO ×2 (08:31→20:28)
[2017-08-30] MEDS: MAGNESIUM OXIDE 400 MG TABLET PO (08:31)
[2017-08-30] MEDS: MULTIVITAMIN with MINERAL TABLET. PO (08:32)
[2017-08-30] MEDS: DOCUSATE SODIUM 100 MG CAPSULE. PO (08:32)
[2017-08-30] MEDS: ASCORBIC ACID 500 MG TABLET PO (08:32)
[2017-08-30] MEDS: POTASSIUM CHLORIDE 20 MEQ TABLET.ER. PO (08:32)
[2017-08-30] MEDS: ASPIRIN ENTERIC COATED 81 MG TABLET.DR. PO (08:32)
[2017-08-30] MEDS: MORPHINE SULFATE 2 MG/ML DISP.SYRIN. IV ×4 (08:33→23:14)
[2017-08-30] MEDS: GABAPENTIN 300 MG CAPSULE. PO ×2 (08:33→20:24)
[2017-08-30] MEDS: oxyCODONE ER 10 MG TAB.ER.12H PO ×2 (08:33→20:24)
[2017-08-30] MEDS: LISINOPRIL 10 MG TABLET PO (08:33)
[2017-08-30] MEDS: POLYETHYLENE GLYCOL 3350 17 GM PACKET. PO (08:34)
[2017-08-30] MEDS: NICOTINE 14MG PATCH. TD (09:00)
[2017-08-30] MEDS: traMADol 50 MG TABLET PO (11:33)
[2017-08-30] MEDS: MEROPENEM 500 MG in IV NORMAL SALINE 50ML 50 ML IV ×3 (12:32→23:15)
[2017-08-30] MEDS: SIMVASTATIN 10 MG TABLET PO (20:24)
[2017-08-30] MEDS: hydroCHLOROthiazide 12.5 MG CAPSULE PO (20:24)
[2017-08-30] MEDS: CITALOPRAM 20 MG TABLET. PO (20:24)
[2017-08-30] MEDS: QUEtiapine 25 MG TABLET. PO (20:25)
[2017-08-30] MEDS ORDERED: oxyCODONE/APAP 5/325 1 TAB TABLET PO (21:00)
[2017-08-30] MEDS: oxyCODONE/APAP 5/325 1 TAB TABLET PO (21:37)
[2017-08-31 04:05] LABS: ADD MAN DIFF? NO
[2017-08-31 04:25] LABS: BASO # 0.1 x10^3/uL (0.0-0.2); BASO % 1 % (0-3); EOS # 0.8 x10^3/uL (0.0-0.7); EOS % 7 % (0-3); HEMATOCRIT 26.1 % (36.0-47.0); HEMOGLOBIN 9.1 g/dL (12.0-15.5); LYMPH # 3.6 x10^3/uL (1.0-4.8); LYMPH % 34 % (24-48); MEAN CORPUSCULAR HEMOGLOBIN 33 pg (25-35); MEAN CORPUSCULAR HGB CONC 35 g/dL (31-37); MEAN CORPUSCULAR VOLUME 94 fL (79-100); MONO # 1.1 x10^3/uL (0.0-1.1); MONO % 10 % (0-9); NEUT % 47 % (31-73); PLATELET COUNT 382 x10^3/uL (140-400); RED BLOOD COUNT 2.79 x10^6/uL (3.50-5.40); RED CELL DISTRIBUTION WIDTH 14.2 % (11.5-14.5); WHITE BLOOD COUNT 10.5 x10^3/uL (4.0-11.0)
[2017-08-31 04:51] LABS: INR 1.4 (0.8-1.1); PROTHROMBIN TIME PATIENT 16.1 SEC (11.7-14.0)
[2017-08-31 04:59] LABS: ANION GAP 11 (6-14); BLOOD UREA NITROGEN 15 mg/dL (7-20); CALCIUM 8.6 mg/dL (8.5-10.1); CARBON DIOXIDE 27 mmol/L (21-32); CHLORIDE 100 mmol/L (98-107); CREATININE 1.2 mg/dL (0.6-1.0); GFR 45.1; GLUCOSE 87 mg/dL (70-99); POTASSIUM 4.4 mmol/L (3.5-5.1); SODIUM 138 mmol/L (136-145)
[2017-08-31] MEDS ORDERED: PROTAMINE 50 MG/5 ML VIAL. IV ×2 (05:58→09:16)
[2017-08-31] MEDS: HEPARIN SODIUM 5,000 UNIT in IV NORMAL SALINE 500ML BAG 500 ML IRR (06:00)
[2017-08-31] MEDS: MEROPENEM 500 MG in IV NORMAL SALINE 50ML 50 ML IV ×4 (06:01→23:49)
[2017-08-31] MEDS: MORPHINE SULFATE 2 MG/ML DISP.SYRIN. IV ×3 (06:34→10:35)
[2017-08-31] MEDS ORDERED: fentaNYL PF VIAL 100 MCG/2 ML VIAL IV ×2 (07:00)
[2017-08-31] MEDS ORDERED: ONDANSETRON PF 4 MG/2 ML VIAL. IV (07:00)
[2017-08-31] MEDS ORDERED: PROCHLORPERAZINE 10 MG/2 ML VIAL. IV (07:00)
[2017-08-31] MEDS: IV RINGERS,LACTATED 1000ML 1,000 ML IV (07:02)
[2017-08-31] MEDS ORDERED: MIDAZOLAM HCL/PF 2 MG/2 ML VIAL. ×2 (07:10→07:24)
[2017-08-31] MEDS ORDERED: ROPIVacaine 0.5% PF 30 ML VIAL. (07:12)
[2017-08-31] MEDS: LIDOCAINE 1% PF 2 ML VIAL. ID (07:35)
[2017-08-31] MEDS ORDERED: HEPARIN for IV BOLUS 10,000 UNIT/10 ML VIAL. (07:57)
[2017-08-31] MEDS ORDERED: fentaNYL PF VIAL 100 MCG/2 ML VIAL (07:57)
[2017-08-31] MEDS ORDERED: PROPOFOL 20 ML IV ×3 (08:13→08:23)
[2017-08-31] MEDS: LIDOCAINE 1% PF 30 ML VIAL. ×2 (08:25→09:25)
[2017-08-31] MEDS: SURGICEL FIBRILLAR 1X2 EACH. (09:00)
[2017-08-31] MEDS: POLYETHYLENE GLYCOL 3350 17 GM PACKET. PO (09:00)
[2017-08-31] MEDS: NICOTINE 14MG PATCH. TD (09:00)
[2017-08-31] MEDS: oxyCODONE ER 10 MG TAB.ER.12H PO ×2 (09:58→20:18)
[2017-08-31] MEDS: ASCORBIC ACID 500 MG TABLET PO (11:43)
[2017-08-31] MEDS: LACTOBACILLUS RHAMNOSUS GG 1 CAPSULE. PO ×2 (11:43→20:19)
[2017-08-31] MEDS: MAGNESIUM OXIDE 400 MG TABLET PO (11:43)
[2017-08-31] MEDS: DOCUSATE SODIUM 100 MG CAPSULE. PO (11:43)
[2017-08-31] MEDS: ASPIRIN ENTERIC COATED 81 MG TABLET.DR. PO (11:43)
[2017-08-31] MEDS: POTASSIUM CHLORIDE 20 MEQ TABLET.ER. PO (11:43)
[2017-08-31] MEDS: MULTIVITAMIN with MINERAL TABLET. PO (11:44)
[2017-08-31] MEDS: GABAPENTIN 300 MG CAPSULE. PO ×2 (11:44→20:18)
[2017-08-31] MEDS: LISINOPRIL 10 MG TABLET PO (11:44)
[2017-08-31] MEDS: oxyCODONE/APAP 5/325 1 TAB TABLET PO ×2 (11:44→16:37)
[2017-08-31] MEDS: IV NORMAL SALINE 1000ML BAG 1,000 ML IV ×2 (11:49→20:19)
[2017-08-31] MEDS: ANTI-COAG MONITOR BY PHARMACY. MC ×2 (12:02→12:05)
[2017-08-31] MEDS: traMADol 50 MG TABLET PO (19:14)
[2017-08-31] MEDS: hydroCHLOROthiazide 12.5 MG CAPSULE PO (20:18)
[2017-08-31] MEDS: QUEtiapine 25 MG TABLET. PO (20:18)
[2017-08-31] MEDS: SIMVASTATIN 10 MG TABLET PO (20:18)
[2017-08-31] MEDS: CITALOPRAM 20 MG TABLET. PO (20:19)
[2017-09-01] MEDS: oxyCODONE/APAP 5/325 1 TAB TABLET PO ×5 (01:06→23:07)
[2017-09-01] MEDS: MEROPENEM 500 MG in IV NORMAL SALINE 50ML 50 ML IV ×4 (05:33→23:07)
[2017-09-01] MEDS: LISINOPRIL 10 MG TABLET PO (08:57)
[2017-09-01] MEDS: ASCORBIC ACID 500 MG TABLET PO (08:57)
[2017-09-01] MEDS: LACTOBACILLUS RHAMNOSUS GG 1 CAPSULE. PO ×2 (08:57→20:27)
[2017-09-01] MEDS: MULTIVITAMIN with MINERAL TABLET. PO (08:57)
[2017-09-01] MEDS: ASPIRIN ENTERIC COATED 325 MG TABLET.DR. PO (08:57)
[2017-09-01] MEDS: MAGNESIUM OXIDE 400 MG TABLET PO (08:57)
[2017-09-01] MEDS: oxyCODONE ER 10 MG TAB.ER.12H PO ×2 (08:58→20:27)
[2017-09-01] MEDS: POTASSIUM CHLORIDE 20 MEQ TABLET.ER. PO (08:58)
[2017-09-01] MEDS: GABAPENTIN 300 MG CAPSULE. PO ×2 (08:58→20:27)
[2017-09-01] MEDS: POLYETHYLENE GLYCOL 3350 17 GM PACKET. PO (08:59)
[2017-09-01] MEDS: NICOTINE 14MG PATCH. TD (08:59)
[2017-09-01] MEDS: DOCUSATE SODIUM 100 MG CAPSULE. PO (09:00)
[2017-09-01] MEDS: IV NORMAL SALINE 1000ML BAG 1,000 ML IV ×2 (09:05→20:28)
[2017-09-01] MEDS: MORPHINE SULFATE 2 MG/ML DISP.SYRIN. IV ×2 (09:47→12:56)
[2017-09-01] MEDS: ANTI-COAG MONITOR BY PHARMACY. MC (09:52)
[2017-09-01 10:38] LABS: HEMATOCRIT 27.2 % (36.0-47.0); HEMOGLOBIN 9.4 g/dL (12.0-15.5); MEAN CORPUSCULAR HEMOGLOBIN 32 pg (25-35); MEAN CORPUSCULAR HGB CONC 35 g/dL (31-37); MEAN CORPUSCULAR VOLUME 94 fL (79-100); PLATELET COUNT 379 x10^3/uL (140-400); RED CELL DISTRIBUTION WIDTH 14.1 % (11.5-14.5); WHITE BLOOD COUNT 9.8 x10^3/uL (4.0-11.0)
[2017-09-01 10:54] LABS: ANION GAP 5 (6-14); BLOOD UREA NITROGEN 11 mg/dL (7-20); CALCIUM 8.5 mg/dL (8.5-10.1); CARBON DIOXIDE 26 mmol/L (21-32); CHLORIDE 103 mmol/L (98-107); CREATININE 0.9 mg/dL (0.6-1.0); GFR 62.8; GLUCOSE 97 mg/dL (70-99); POTASSIUM 4.7 mmol/L (3.5-5.1); SODIUM 134 mmol/L (136-145)
[2017-09-01 11:02] LABS: INR 1.1 (0.8-1.1)
[2017-09-01] MEDS: IOHEXOL 300 MG/ML 100ML VIAL. IV (11:15)
[2017-09-01] MEDS: cloNIDine HCL 0.1 MG TABLET PO (11:22)
[2017-09-01] MEDS ORDERED: CONTRAST GIVEN. MC (11:30)
[2017-09-01 12:41] LABS: POC GLUCOSE 122 mg/dL (70-99)
[2017-09-01] MEDS: HEPARIN for IV BOLUS 10,000 UNIT/10 ML VIAL. IV (13:06)
[2017-09-01] MEDS: HEPARIN 25,000UTS/500ML PREMIX 500 ML IV (13:10)
[2017-09-01] MEDS: WARFARIN 5 MG TABLET. PO (16:15)
[2017-09-01] MEDS: traMADol 50 MG TABLET PO (19:21)
[2017-09-01] MEDS: SIMVASTATIN 10 MG TABLET PO (20:26)
[2017-09-01] MEDS: CITALOPRAM 20 MG TABLET. PO (20:26)
[2017-09-01] MEDS: QUEtiapine 25 MG TABLET. PO (20:27)
[2017-09-01] MEDS: hydroCHLOROthiazide 12.5 MG CAPSULE PO (20:27)
[2017-09-02] MEDS: oxyCODONE/APAP 5/325 1 TAB TABLET PO ×5 (04:01→20:05)
[2017-09-02] MEDS: IV NORMAL SALINE 1000ML BAG 1,000 ML IV (04:02)
[2017-09-02] MEDS: MEROPENEM 500 MG in IV NORMAL SALINE 50ML 50 ML IV ×3 (05:19→18:09)
[2017-09-02 06:23] LABS: UNFRACTIONATED HEPARIN TESTING 0.32 IU/mL (0.30-0.70)
[2017-09-02 06:28] LABS: ANION GAP 8 (6-14); BLOOD UREA NITROGEN 12 mg/dL (7-20); CALCIUM 7.9 mg/dL (8.5-10.1); CARBON DIOXIDE 24 mmol/L (21-32); CHLORIDE 101 mmol/L (98-107); GFR 55.6; GLUCOSE 70 mg/dL (70-99); POTASSIUM 4.6 mmol/L (3.5-5.1); SODIUM 133 mmol/L (136-145)
[2017-09-02 07:09] LABS: INR 1.2 (0.8-1.1); PROTHROMBIN TIME PATIENT 14.5 SEC (11.7-14.0)
[2017-09-02] MEDS: GABAPENTIN 300 MG CAPSULE. PO ×2 (08:58→21:11)
[2017-09-02] MEDS: LACTOBACILLUS RHAMNOSUS GG 1 CAPSULE. PO ×2 (08:58→21:12)
[2017-09-02] MEDS: MULTIVITAMIN with MINERAL TABLET. PO (08:58)
[2017-09-02] MEDS: MAGNESIUM OXIDE 400 MG TABLET PO (08:58)
[2017-09-02] MEDS: LISINOPRIL 10 MG TABLET PO (08:59)
[2017-09-02] MEDS: POTASSIUM CHLORIDE 20 MEQ TABLET.ER. PO (08:59)
[2017-09-02] MEDS: ASPIRIN ENTERIC COATED 325 MG TABLET.DR. PO (08:59)
[2017-09-02] MEDS: ASCORBIC ACID 500 MG TABLET PO (08:59)
[2017-09-02] MEDS: DOCUSATE SODIUM 100 MG CAPSULE. PO (09:00)
[2017-09-02] MEDS: oxyCODONE ER 10 MG TAB.ER.12H PO ×2 (09:00→21:13)
[2017-09-02] MEDS: NICOTINE 14MG PATCH. TD (09:00)
[2017-09-02] MEDS: POLYETHYLENE GLYCOL 3350 17 GM PACKET. PO (09:00)
[2017-09-02] MEDS: HEPARIN 25,000UTS/500ML PREMIX 500 ML IV (09:09)
[2017-09-02] MEDS: ANTI-COAG MONITOR BY PHARMACY. MC ×2 (09:39→11:14)
[2017-09-02] MEDS ORDERED: WARFARIN 5 MG TABLET. PO (16:00)
[2017-09-02] MEDS: CITALOPRAM 20 MG TABLET. PO (21:11)
[2017-09-02] MEDS: hydroCHLOROthiazide 12.5 MG CAPSULE PO (21:12)
[2017-09-02] MEDS: QUEtiapine 25 MG TABLET. PO (21:12)
[2017-09-02] MEDS: SIMVASTATIN 10 MG TABLET PO (21:12)
[2017-09-02] MEDS: hydrALAZINE 20 MG/ML VIAL. IVP (23:29)
[2017-09-03] MEDS: MEROPENEM 500 MG in IV NORMAL SALINE 50ML 50 ML IV ×5 (00:10→23:50)
[2017-09-03] MEDS: oxyCODONE/APAP 5/325 1 TAB TABLET PO ×5 (00:11→19:39)
[2017-09-03 05:50] LABS: INR 1.1 (0.8-1.1); PROTHROMBIN TIME PATIENT 14.1 SEC (11.7-14.0)
[2017-09-03 05:52] LABS: UNFRACTIONATED HEPARIN TESTING 0.36 IU/mL (0.30-0.70)
[2017-09-03] MEDS: POLYETHYLENE GLYCOL 3350 17 GM PACKET. PO (09:00)
[2017-09-03] MEDS: NICOTINE 14MG PATCH. TD (09:00)
[2017-09-03] MEDS: DOCUSATE SODIUM 100 MG CAPSULE. PO (09:00)
[2017-09-03] MEDS: oxyCODONE ER 10 MG TAB.ER.12H PO ×2 (09:29→20:49)
[2017-09-03] MEDS: MORPHINE SULFATE 2 MG/ML DISP.SYRIN. IV ×3 (10:42→21:09)
[2017-09-03] MEDS ORDERED: IODIXANOL 320 MG/ML 100 ML VIAL. (12:01)
[2017-09-03] MEDS ORDERED: LIDOCAINE WITH 8.4% SOD BICARB 3 ML DISP.SYRIN. (12:01)
[2017-09-03] MEDS ORDERED: HEPARIN for ARTERIAL LINE 1,500 ML (12:02)
[2017-09-03] MEDS ORDERED: IODIXANOL 320MG/ML 50ML VIAL. (12:02)
[2017-09-03] MEDS ORDERED: HEPARIN for IV BOLUS 10,000 UNIT/10 ML VIAL. (12:12)
[2017-09-03] MEDS: IODIXANOL 320MG/ML 50ML VIAL. IART (12:15)
[2017-09-03] MEDS ORDERED: CONTRAST GIVEN. MC (12:30)
[2017-09-03] MEDS ORDERED: hydrALAZINE 20 MG/ML VIAL. (13:20)
[2017-09-03] MEDS ORDERED: METOPROLOL TARTRATE 5 MG/5 ML VIAL. (13:38)
[2017-09-03] MEDS: LIDOCAINE WITH 8.4% SOD BICARB 3 ML DISP.SYRIN. IJ (13:47)
[2017-09-03] MEDS ORDERED: fentaNYL PF VIAL 100 MCG/2 ML VIAL (13:48)
[2017-09-03] MEDS: IODIXANOL 320 MG/ML 100 ML VIAL. IART (13:52)
[2017-09-03] MEDS: fentaNYL PF VIAL 100 MCG/2 ML VIAL IV (13:53)
[2017-09-03] MEDS: MIDAZOLAM HCL/PF 5 MG/5 ML VIAL. IV (13:54)
[2017-09-03] MEDS: LACTOBACILLUS RHAMNOSUS GG 1 CAPSULE. PO ×2 (14:48→20:49)
[2017-09-03] MEDS: LISINOPRIL 10 MG TABLET PO (14:49)
[2017-09-03] MEDS: MAGNESIUM OXIDE 400 MG TABLET PO (14:49)
[2017-09-03] MEDS: POTASSIUM CHLORIDE 20 MEQ TABLET.ER. PO (14:49)
[2017-09-03] MEDS: MULTIVITAMIN with MINERAL TABLET. PO (14:49)
[2017-09-03] MEDS: GABAPENTIN 300 MG CAPSULE. PO ×2 (14:50→20:49)
[2017-09-03] MEDS: ASPIRIN ENTERIC COATED 325 MG TABLET.DR. PO (14:50)
[2017-09-03] MEDS: ASCORBIC ACID 500 MG TABLET PO (14:50)
[2017-09-03] MEDS: QUEtiapine 25 MG TABLET. PO (20:48)
[2017-09-03] MEDS: CITALOPRAM 20 MG TABLET. PO (20:49)
[2017-09-03] MEDS: hydroCHLOROthiazide 12.5 MG CAPSULE PO (20:49)
[2017-09-03] MEDS: SIMVASTATIN 10 MG TABLET PO (20:49)
[2017-09-04] MEDS: oxyCODONE/APAP 5/325 1 TAB TABLET PO ×3 (03:14→15:02)
[2017-09-04] MEDS: MEROPENEM 500 MG in IV NORMAL SALINE 50ML 50 ML IV ×4 (05:32→23:43)
[2017-09-04] MEDS: IV RINGERS,LACTATED 1000ML 1,000 ML IV (07:00)
[2017-09-04] MEDS ORDERED: PROCHLORPERAZINE 10 MG/2 ML VIAL. IV (07:00)
[2017-09-04] MEDS ORDERED: LIDOCAINE 1% PF 2 ML VIAL. ID (07:00)
[2017-09-04] MEDS ORDERED: fentaNYL PF VIAL 100 MCG/2 ML VIAL IV (07:00)
[2017-09-04] MEDS: POTASSIUM CHLORIDE 20 MEQ TABLET.ER. PO (08:00)
[2017-09-04] MEDS: ASPIRIN ENTERIC COATED 325 MG TABLET.DR. PO (08:00)
[2017-09-04 08:37] LABS: INR 1.1 (0.8-1.1)
[2017-09-04] MEDS ORDERED: LIDOCAINE 2% PF Vial for OR 5 ML VIAL. (08:37)
[2017-09-04] MEDS ORDERED: PROPOFOL 20 ML IV (08:37)
[2017-09-04] MEDS ORDERED: fentaNYL PF VIAL 100 MCG/2 ML VIAL ×2 (08:38→14:23)
[2017-09-04] MEDS ORDERED: PHENYLEPHRINE in 0.9% NACL PF 1 MG/10 ML SYRINGE. IV ×2 (08:38→11:55)
[2017-09-04] MEDS ORDERED: MIDAZOLAM HCL/PF 2 MG/2 ML VIAL. ×2 (08:38→09:15)
[2017-09-04] MEDS ORDERED: PHENYLEPHRINE 10 MG/ML VIAL. (08:46)
[2017-09-04] MEDS: DOCUSATE SODIUM 100 MG CAPSULE. PO (09:00)
[2017-09-04] MEDS: NICOTINE 14MG PATCH. TD (09:00)
[2017-09-04] MEDS: ASCORBIC ACID 500 MG TABLET PO (09:00)
[2017-09-04] MEDS: POLYETHYLENE GLYCOL 3350 17 GM PACKET. PO (09:00)
[2017-09-04] MEDS: LACTOBACILLUS RHAMNOSUS GG 1 CAPSULE. PO ×2 (09:00→20:47)
[2017-09-04] MEDS: MAGNESIUM OXIDE 400 MG TABLET PO (09:00)
[2017-09-04] MEDS: MULTIVITAMIN with MINERAL TABLET. PO (09:00)
[2017-09-04] MEDS: GABAPENTIN 300 MG CAPSULE. PO ×2 (09:00→20:48)
[2017-09-04] MEDS: LISINOPRIL 10 MG TABLET PO (09:01)
[2017-09-04] MEDS: ANTI-COAG MONITOR BY PHARMACY. MC (09:19)
[2017-09-04] MEDS ORDERED: ceFAZolin 2GM PREMIX 2 GM/50 ML BAG IV (09:25)
[2017-09-04] MEDS ORDERED: ROPIVacaine 0.5% PF 30 ML VIAL. (09:26)
[2017-09-04] MEDS ORDERED: PROTAMINE 50 MG/5 ML VIAL. IV (09:47)
[2017-09-04] MEDS ORDERED: LIDOCAINE 1% PF 30 ML VIAL. (09:50)
[2017-09-04] MEDS ORDERED: SEVOFLURANE > 120 MINUTES. IH (10:02)
[2017-09-04] MEDS ORDERED: PROPOFOL 40 ML IV (10:46)
[2017-09-04] MEDS ORDERED: HEPARIN for IV BOLUS 10,000 UNIT/10 ML VIAL. (11:26)
[2017-09-04] MEDS: HEPARIN SODIUM 5,000 UNIT in IV RINGERS,LACTATED 500ML 500 ML IRR (11:30)
[2017-09-04] MEDS: HEPARIN for IV BOLUS 10,000 UNIT/10 ML VIAL. IV (12:07)
[2017-09-04] MEDS: SURGICEL FIBRILLAR 1X2 EACH. (12:11)
[2017-09-04] MEDS: oxyCODONE ER 10 MG TAB.ER.12H PO ×2 (12:59→20:49)
[2017-09-04] MEDS: hydrALAZINE 20 MG/ML VIAL. IVP ×3 (13:00→19:33)
[2017-09-04] MEDS: fentaNYL PF VIAL 100 MCG/2 ML VIAL IV ×3 (13:24→14:28)
[2017-09-04] MEDS: MORPHINE SULFATE 2 MG/ML DISP.SYRIN. IV ×4 (13:25→22:28)
[2017-09-04] MEDS: ONDANSETRON PF 4 MG/2 ML VIAL. IV (16:32)
[2017-09-04] MEDS: hydroCHLOROthiazide 12.5 MG CAPSULE PO (20:47)
[2017-09-04] MEDS: CITALOPRAM 20 MG TABLET. PO (20:48)
[2017-09-04] MEDS: QUEtiapine 25 MG TABLET. PO (20:48)
[2017-09-04] MEDS: SIMVASTATIN 10 MG TABLET PO (20:48)
[2017-09-04] MEDS: ACETAMINOPHEN 500 MG TABLET PO (23:39)
[2017-09-05] MEDS: MORPHINE SULFATE 2 MG/ML DISP.SYRIN. IV ×5 (01:57→19:54)
[2017-09-05] MEDS: oxyCODONE/APAP 5/325 1 TAB TABLET PO ×2 (03:13→14:51)
[2017-09-05] MEDS: MEROPENEM 500 MG in IV NORMAL SALINE 50ML 50 ML IV ×3 (05:22→18:00)
[2017-09-05 05:54] LABS: ANION GAP 7 (6-14); BLOOD UREA NITROGEN 15 mg/dL (7-20); CALCIUM 8.2 mg/dL (8.5-10.1); CARBON DIOXIDE 26 mmol/L (21-32); CHLORIDE 99 mmol/L (98-107); CREATININE 1.2 mg/dL (0.6-1.0); GFR 45.1; GLUCOSE 104 mg/dL (70-99); POTASSIUM 4.7 mmol/L (3.5-5.1); SODIUM 132 mmol/L (136-145)
[2017-09-05 06:05] LABS: HEMATOCRIT 25.1 % (36.0-47.0); HEMOGLOBIN 8.5 g/dL (12.0-15.5); MEAN CORPUSCULAR HEMOGLOBIN 31 pg (25-35); MEAN CORPUSCULAR HGB CONC 34 g/dL (31-37); MEAN CORPUSCULAR VOLUME 93 fL (79-100); PLATELET COUNT 351 x10^3/uL (140-400); RED BLOOD COUNT 2.69 x10^6/uL (3.50-5.40); RED CELL DISTRIBUTION WIDTH 14.8 % (11.5-14.5)
[2017-09-05 06:16] LABS: INR 1.2 (0.8-1.1); PROTHROMBIN TIME PATIENT 14.2 SEC (11.7-14.0)
[2017-09-05] MEDS: POLYETHYLENE GLYCOL 3350 17 GM PACKET. PO (08:08)
[2017-09-05] MEDS: NICOTINE 14MG PATCH. TD (08:10)
[2017-09-05] MEDS: DOCUSATE SODIUM 100 MG CAPSULE. PO (08:10)
[2017-09-05] MEDS: MULTIVITAMIN with MINERAL TABLET. PO (08:56)
[2017-09-05] MEDS: MAGNESIUM OXIDE 400 MG TABLET PO (08:56)
[2017-09-05] MEDS: ASPIRIN ENTERIC COATED 325 MG TABLET.DR. PO (08:57)
[2017-09-05] MEDS: GABAPENTIN 300 MG CAPSULE. PO ×2 (08:57→20:51)
[2017-09-05] MEDS: LACTOBACILLUS RHAMNOSUS GG 1 CAPSULE. PO ×2 (08:57→20:52)
[2017-09-05] MEDS: ASCORBIC ACID 500 MG TABLET PO (08:57)
[2017-09-05] MEDS: POTASSIUM CHLORIDE 20 MEQ TABLET.ER. PO (08:57)
[2017-09-05] MEDS: LISINOPRIL 10 MG TABLET PO (09:00)
[2017-09-05] MEDS: oxyCODONE ER 10 MG TAB.ER.12H PO ×2 (11:23→20:52)
[2017-09-05] MEDS: ANTI-COAG MONITOR BY PHARMACY. MC (14:18)
[2017-09-05] MEDS: IV NORMAL SALINE 1000ML BAG 1,000 ML IV (15:00)
[2017-09-05] MEDS: CITALOPRAM 20 MG TABLET. PO (20:53)
[2017-09-05] MEDS: QUEtiapine 25 MG TABLET. PO (20:53)
[2017-09-05] MEDS: SIMVASTATIN 10 MG TABLET PO (20:53)
[2017-09-05] MEDS: traMADol 50 MG TABLET PO (20:53)
[2017-09-05] MEDS: hydroCHLOROthiazide 12.5 MG CAPSULE PO (21:00)
[2017-09-06] MEDS: MEROPENEM 500 MG in IV NORMAL SALINE 50ML 50 ML IV ×5 (00:07→23:27)
[2017-09-06] MEDS: oxyCODONE/APAP 5/325 1 TAB TABLET PO ×3 (03:13→18:24)
[2017-09-06] MEDS: IV NORMAL SALINE 1000ML BAG 1,000 ML IV (03:19)
[2017-09-06] MEDS: MORPHINE SULFATE 2 MG/ML DISP.SYRIN. IV ×4 (03:20→20:21)
[2017-09-06 05:16] LABS: ADD MAN DIFF? NO
[2017-09-06 05:19] LABS: BASO # 0.1 x10^3/uL (0.0-0.2); BASO % 1 % (0-3); EOS # 0.9 x10^3/uL (0.0-0.7); EOS % 10 % (0-3); HEMATOCRIT 21.5 % (36.0-47.0); HEMOGLOBIN 7.4 g/dL (12.0-15.5); LYMPH # 2.1 x10^3/uL (1.0-4.8); LYMPH % 25 % (24-48); MEAN CORPUSCULAR HEMOGLOBIN 33 pg (25-35); MEAN CORPUSCULAR HGB CONC 34 g/dL (31-37); MEAN CORPUSCULAR VOLUME 95 fL (79-100); MONO # 0.9 x10^3/uL (0.0-1.1); MONO % 12 % (0-9); NEUT # 4.3 x10^3uL (1.8-7.7); NEUT % 52 % (31-73); PLATELET COUNT 283 x10^3/uL (140-400); RED BLOOD COUNT 2.27 x10^6/uL (3.50-5.40); RED CELL DISTRIBUTION WIDTH 14.8 % (11.5-14.5); WHITE BLOOD COUNT 8.2 x10^3/uL (4.0-11.0)
[2017-09-06 05:45] LABS: ALBUMIN 2.2 g/dL (3.4-5.0); ALBUMIN/GLOBULIN RATIO 0.7 (1.0-1.7); ALK PHOS 62 U/L (46-116); ALT (SGPT) 11 U/L (14-59); ANION GAP 7 (6-14); AST (SGOT) 17 U/L (15-37); BLOOD UREA NITROGEN 18 mg/dL (7-20); BUN/CREATININE RATIO 18 (6-20); CALCIUM 7.6 mg/dL (8.5-10.1); CARBON DIOXIDE 26 mmol/L (21-32); CHLORIDE 102 mmol/L (98-107); GFR 55.6; GLUCOSE 88 mg/dL (70-99); POTASSIUM 5.2 mmol/L (3.5-5.1); SODIUM 135 mmol/L (136-145); TOTAL BILIRUBIN 0.1 mg/dL (0.2-1.0); TOTAL PROTEIN 5.3 g/dL (6.4-8.2)
[2017-09-06 05:47] LABS: INR 1.1 (0.8-1.1); PROTHROMBIN TIME PATIENT 13.7 SEC (11.7-14.0)
[2017-09-06] MEDS: NICOTINE 14MG PATCH. TD (07:24)
[2017-09-06] MEDS: MAGNESIUM OXIDE 400 MG TABLET PO (08:01)
[2017-09-06] MEDS: oxyCODONE ER 10 MG TAB.ER.12H PO ×2 (08:01→19:55)
[2017-09-06] MEDS: MULTIVITAMIN with MINERAL TABLET. PO (08:01)
[2017-09-06] MEDS: LACTOBACILLUS RHAMNOSUS GG 1 CAPSULE. PO ×2 (08:01→19:54)
[2017-09-06] MEDS: DOCUSATE SODIUM 100 MG CAPSULE. PO (08:01)
[2017-09-06] MEDS: POTASSIUM CHLORIDE 20 MEQ TABLET.ER. PO (08:01)
[2017-09-06] MEDS: ASPIRIN ENTERIC COATED 325 MG TABLET.DR. PO (08:02)
[2017-09-06] MEDS: ASCORBIC ACID 500 MG TABLET PO (08:02)
[2017-09-06] MEDS: GABAPENTIN 300 MG CAPSULE. PO ×2 (08:02→19:54)
[2017-09-06] MEDS: POLYETHYLENE GLYCOL 3350 17 GM PACKET. PO ×2 (08:03→09:00)
[2017-09-06] MEDS: LISINOPRIL 10 MG TABLET PO (09:00)
[2017-09-06 15:06] LABS: IMMEDIATE SPIN CROSSMATCH 1 4
[2017-09-06] MEDS: FUROSEMIDE 20 MG/2 ML VIAL. IVP ×2 (18:15→18:23)
[2017-09-06] MEDS: CITALOPRAM 20 MG TABLET. PO (19:54)
[2017-09-06] MEDS: QUEtiapine 25 MG TABLET. PO (19:55)
[2017-09-06] MEDS: SIMVASTATIN 10 MG TABLET PO (19:55)
[2017-09-06] MEDS: hydroCHLOROthiazide 12.5 MG CAPSULE PO (19:58)
[2017-09-06] MEDS ORDERED: PHENOL ORAL SPRAY 177ML BOTTLE. PO (23:45)
[2017-09-06 23:54] LABS: ADD MAN DIFF? NO
[2017-09-06 23:58] LABS: BASO # 0.2 x10^3/uL (0.0-0.2); BASO % 2 % (0-3); EOS # 1.2 x10^3/uL (0.0-0.7); EOS % 14 % (0-3); HEMOGLOBIN 10.4 g/dL (12.0-15.5); LYMPH # 2.5 x10^3/uL (1.0-4.8); LYMPH % 29 % (24-48); MEAN CORPUSCULAR HEMOGLOBIN 32 pg (25-35); MEAN CORPUSCULAR HGB CONC 35 g/dL (31-37); MEAN CORPUSCULAR VOLUME 92 fL (79-100); MONO # 0.9 x10^3/uL (0.0-1.1); MONO % 10 % (0-9); NEUT % 46 % (31-73); PLATELET COUNT 305 x10^3/uL (140-400); RED BLOOD COUNT 3.26 x10^6/uL (3.50-5.40); RED CELL DISTRIBUTION WIDTH 15.6 % (11.5-14.5); WHITE BLOOD COUNT 8.8 x10^3/uL (4.0-11.0)
[2017-09-07] MEDS: oxyCODONE/APAP 5/325 1 TAB TABLET PO (02:10)
[2017-09-07] MEDS: ALTEPLASE 2 MG VIAL INT CAT ×3 (02:10→16:45)
[2017-09-07 04:08] LABS: ADD MAN DIFF? NO
[2017-09-07 04:10] LABS: BASO # 0.1 x10^3/uL (0.0-0.2); BASO % 2 % (0-3); EOS % 13 % (0-3); HEMATOCRIT 33.7 % (36.0-47.0); HEMOGLOBIN 11.6 g/dL (12.0-15.5); LYMPH # 1.4 x10^3/uL (1.0-4.8); LYMPH % 18 % (24-48); MEAN CORPUSCULAR HEMOGLOBIN 32 pg (25-35); MEAN CORPUSCULAR HGB CONC 34 g/dL (31-37); MEAN CORPUSCULAR VOLUME 92 fL (79-100); MONO # 0.7 x10^3/uL (0.0-1.1); MONO % 9 % (0-9); NEUT # 4.5 x10^3uL (1.8-7.7); NEUT % 58 % (31-73); PLATELET COUNT 292 x10^3/uL (140-400); RED BLOOD COUNT 3.66 x10^6/uL (3.50-5.40); RED CELL DISTRIBUTION WIDTH 15.3 % (11.5-14.5); WHITE BLOOD COUNT 7.7 x10^3/uL (4.0-11.0)
[2017-09-07] MEDS: MORPHINE SULFATE 2 MG/ML DISP.SYRIN. IV ×2 (04:41→19:59)
[2017-09-07 05:08] LABS: ALBUMIN 2.4 g/dL (3.4-5.0); ALBUMIN/GLOBULIN RATIO 0.6 (1.0-1.7); ALK PHOS 68 U/L (46-116); ALT (SGPT) 10 U/L (14-59); ANION GAP 5 (6-14); AST (SGOT) 20 U/L (15-37); BLOOD UREA NITROGEN 13 mg/dL (7-20); BUN/CREATININE RATIO 16 (6-20); CALCIUM 8.5 mg/dL (8.5-10.1); CARBON DIOXIDE 28 mmol/L (21-32); CHLORIDE 102 mmol/L (98-107); CREATININE 0.8 mg/dL (0.6-1.0); GLUCOSE 83 mg/dL (70-99); MAGNESIUM 1.7 mg/dL (1.8-2.4); POTASSIUM 5.5 mmol/L (3.5-5.1); SODIUM 135 mmol/L (136-145); TOTAL BILIRUBIN 0.3 mg/dL (0.2-1.0); TOTAL PROTEIN 6.1 g/dL (6.4-8.2)
[2017-09-07] MEDS: MEROPENEM 500 MG in IV NORMAL SALINE 50ML 50 ML IV ×4 (06:00→23:51)
[2017-09-07] MEDS ORDERED: PHENYLEPHRINE in 0.9% NACL PF 1 MG/10 ML SYRINGE. IV (06:26)
[2017-09-07] MEDS ORDERED: DEXAMETHASONE SOD PHOS 20 MG/5 ML VIAL. (06:26)
[2017-09-07] MEDS ORDERED: ePHEDrine PF IN SALINE 50 MG/5 ML DISP.SYRIN IV (06:26)
[2017-09-07] MEDS ORDERED: ONDANSETRON PF 4 MG/2 ML VIAL. (06:26)
[2017-09-07] MEDS ORDERED: LIDOCAINE 2% PF Vial for OR 5 ML VIAL. (06:27)
[2017-09-07] MEDS ORDERED: PROPOFOL 20 ML IV (06:27)
[2017-09-07] MEDS ORDERED: ROCURONIUM 100 MG/10 ML VIAL. (06:28)
[2017-09-07] MEDS ORDERED: MORPHINE SULFATE 2 MG/ML DISP.SYRIN. IV (07:00)
[2017-09-07] MEDS ORDERED: fentaNYL PF VIAL 100 MCG/2 ML VIAL ×6 (07:02→13:16)
[2017-09-07] MEDS ORDERED: MIDAZOLAM HCL/PF 2 MG/2 ML VIAL. (07:02)
[2017-09-07] MEDS ORDERED: FAMOTIDINE 20 MG/2 ML VIAL (07:02)
[2017-09-07] MEDS: fentaNYL PF VIAL 100 MCG/2 ML VIAL IV ×7 (07:07→18:52)
[2017-09-07] MEDS: MAGNESIUM SULFATE 2GM 50 ML IV (07:13)
[2017-09-07] MEDS: IV NORMAL SALINE 1000ML BAG 1,000 ML IV ×4 (07:14→23:52)
[2017-09-07] MEDS: IPRATRPIUM/ALBUTEROL 0.5/2.5MG 3 ML NEBU. NEB (07:18)
[2017-09-07] MEDS ORDERED: FUROSEMIDE 20 MG/2 ML VIAL. (07:31)
[2017-09-07] MEDS: IV RINGERS,LACTATED 1000ML 1,000 ML IV (07:34)
[2017-09-07] MEDS: LIDOCAINE 1% PF 2 ML VIAL. ID (07:36)
[2017-09-07] MEDS: FUROSEMIDE 20 MG/2 ML VIAL. IVP (07:40)
[2017-09-07] MEDS: ASPIRIN ENTERIC COATED 325 MG TABLET.DR. PO (08:00)
[2017-09-07] MEDS ORDERED: ceFAZolin 2GM PREMIX 2 GM/50 ML BAG IV (08:00)
[2017-09-07 08:16] LABS: POTASSIUM 4.8 mmol/L (3.5-5.1)
[2017-09-07] MEDS ORDERED: HEPARIN 30,000 UNIT/30 ML VIAL. (08:44)
[2017-09-07] MEDS ORDERED: LIDOCAINE 2% TOPICAL JELLY 5GM TUBE. TP (08:49)
[2017-09-07] MEDS: GABAPENTIN 300 MG CAPSULE. PO ×2 (09:00→20:43)
[2017-09-07] MEDS: LISINOPRIL 10 MG TABLET PO (09:00)
[2017-09-07] MEDS: ASCORBIC ACID 500 MG TABLET PO (09:00)
[2017-09-07] MEDS: MULTIVITAMIN with MINERAL TABLET. PO (09:00)
[2017-09-07] MEDS: LACTOBACILLUS RHAMNOSUS GG 1 CAPSULE. PO ×2 (09:00→20:43)
[2017-09-07] MEDS: NICOTINE 14MG PATCH. TD (09:00)
[2017-09-07] MEDS: POLYETHYLENE GLYCOL 3350 17 GM PACKET. PO (09:00)
[2017-09-07] MEDS: DOCUSATE SODIUM 100 MG CAPSULE. PO (09:00)
[2017-09-07] MEDS: oxyCODONE ER 10 MG TAB.ER.12H PO ×2 (09:00→20:44)
[2017-09-07] MEDS: MAGNESIUM OXIDE 400 MG TABLET PO (09:00)
[2017-09-07] MEDS ORDERED: PHENYLEPHRINE 10 MG/ML VIAL. ×2 (09:01)
[2017-09-07] MEDS ORDERED: ROCURONIUM 50 MG/5 ML VIAL. (09:36)
[2017-09-07] MEDS ORDERED: MANNITOL 25% 12.5 G/50 ML VIAL FOR OR. (09:48)
[2017-09-07] MEDS: HEPARIN SODIUM 5,000 UNIT in IV NORMAL SALINE 500ML BAG 500 ML IRR (10:21)
[2017-09-07] MEDS ORDERED: ALBUMIN HUMAN 5% 500 ML IV (10:48)
[2017-09-07] MEDS ORDERED: SEVOFLURANE > 120 MINUTES. IH (10:52)
[2017-09-07 11:12] LABS: HEMATOCRIT 25.1 % (36.0-47.0)
[2017-09-07 11:12] LABS: HEMOGLOBIN 8.7 g/dL (12.0-15.5)
[2017-09-07] MEDS ORDERED: PROTAMINE 50 MG/5 ML VIAL. IV ×2 (11:51→12:05)
[2017-09-07] MEDS ORDERED: HEPARIN for IV BOLUS 10,000 UNIT/10 ML VIAL. (12:05)
[2017-09-07] MEDS ORDERED: GLYCOPYRROLATE 1 MG/5 ML VIAL. (12:17)
[2017-09-07] MEDS ORDERED: NEOSTIGMINE METHYLSULFATE 5 MG/5 ML SYRINGE. (12:17)
[2017-09-07] MEDS: SURGICEL FIBRILLAR 1X2 EACH. (12:56)
[2017-09-07] MEDS ORDERED: IPRATRPIUM/ALBUTEROL 0.5/2.5MG 3 ML NEBU. (13:09)
[2017-09-07] MEDS ORDERED: PROCHLORPERAZINE 10 MG/2 ML VIAL. (13:16)
[2017-09-07 13:42] LABS: BASO # 0.2 x10^3/uL (0.0-0.2); BASO % 1 % (0-3); EOS # 0.1 x10^3/uL (0.0-0.7); EOS % 1 % (0-3); HEMATOCRIT 32.3 % (36.0-47.0); HEMOGLOBIN 10.8 g/dL (12.0-15.5); LYMPH # 1.5 x10^3/uL (1.0-4.8); LYMPH % 6 % (24-48); MEAN CORPUSCULAR HEMOGLOBIN 31 pg (25-35); MEAN CORPUSCULAR HGB CONC 33 g/dL (31-37); MEAN CORPUSCULAR VOLUME 93 fL (79-100); MONO # 0.7 x10^3/uL (0.0-1.1); MONO % 3 % (0-9); NEUT # 24.8 x10^3uL (1.8-7.7); NEUT % 91 % (31-73); PLATELET COUNT 265 x10^3/uL (140-400); RED BLOOD COUNT 3.49 x10^6/uL (3.50-5.40); RED CELL DISTRIBUTION WIDTH 15.6 % (11.5-14.5); WHITE BLOOD COUNT 27.3 x10^3/uL (4.0-11.0)
[2017-09-07 13:46] LABS: ADD MAN DIFF? YES
[2017-09-07] MEDS: PROCHLORPERAZINE 10 MG/2 ML VIAL. IV (13:50)
[2017-09-07 13:54] LABS: ANION GAP 11 (6-14); BLOOD UREA NITROGEN 12 mg/dL (7-20); CARBON DIOXIDE 20 mmol/L (21-32); CHLORIDE 106 mmol/L (98-107); CREATININE 0.8 mg/dL (0.6-1.0); GLUCOSE 222 mg/dL (70-99); SODIUM 137 mmol/L (136-145)
[2017-09-07 14:41] LABS: % BANDS 12 % (0-9); % LYMPHS 9 % (24-48); % MONOS 3 % (0-10); % SEGS 76 % (35-66)
[2017-09-07 14:43] LABS: PLT ESTIMATE ADEQUATE (ADEQUATE); POLYCHROMASIA SLIGHT; TOXIC GRANULATION SLIGHT
[2017-09-07 19:32] LABS: HEMATOCRIT 29.5 % (36.0-47.0); HEMOGLOBIN 9.8 g/dL (12.0-15.5); MEAN CORPUSCULAR HEMOGLOBIN 31 pg (25-35); MEAN CORPUSCULAR HGB CONC 33 g/dL (31-37); MEAN CORPUSCULAR VOLUME 94 fL (79-100); PLATELET COUNT 245 x10^3/uL (140-400); RED BLOOD COUNT 3.15 x10^6/uL (3.50-5.40); RED CELL DISTRIBUTION WIDTH 15.8 % (11.5-14.5); WHITE BLOOD COUNT 18.5 x10^3/uL (4.0-11.0)
[2017-09-07] MEDS: CITALOPRAM 20 MG TABLET. PO (20:43)
[2017-09-07] MEDS: QUEtiapine 25 MG TABLET. PO (20:43)
[2017-09-07] MEDS: hydroCHLOROthiazide 12.5 MG CAPSULE PO (20:44)
[2017-09-07] MEDS: SIMVASTATIN 10 MG TABLET PO (20:46)
[2017-09-07 21:46] LABS: IMMEDIATE SPIN CROSSMATCH 1
[2017-09-08] MEDS: MORPHINE SULFATE 2 MG/ML DISP.SYRIN. IV ×4 (03:18→09:41)
[2017-09-08] MEDS: IV NORMAL SALINE 1000ML BAG 1,000 ML IV ×5 (05:15→23:50)
[2017-09-08 05:32] LABS: ADD MAN DIFF? NO
[2017-09-08] MEDS: MEROPENEM 500 MG in IV NORMAL SALINE 50ML 50 ML IV ×4 (05:39→23:58)
[2017-09-08 05:43] LABS: BASO # 0.1 x10^3/uL (0.0-0.2); BASO % 0 % (0-3); EOS % 0 % (0-3); HEMATOCRIT 28.9 % (36.0-47.0); HEMOGLOBIN 9.7 g/dL (12.0-15.5); LYMPH # 1.4 x10^3/uL (1.0-4.8); LYMPH % 10 % (24-48); MEAN CORPUSCULAR HEMOGLOBIN 32 pg (25-35); MEAN CORPUSCULAR HGB CONC 34 g/dL (31-37); MEAN CORPUSCULAR VOLUME 94 fL (79-100); MONO # 1.3 x10^3/uL (0.0-1.1); MONO % 9 % (0-9); NEUT # 11.9 x10^3uL (1.8-7.7); NEUT % 81 % (31-73); PLATELET COUNT 234 x10^3/uL (140-400); RED BLOOD COUNT 3.09 x10^6/uL (3.50-5.40); RED CELL DISTRIBUTION WIDTH 15.8 % (11.5-14.5); WHITE BLOOD COUNT 14.7 x10^3/uL (4.0-11.0)
[2017-09-08 06:12] LABS: ALBUMIN 2.2 g/dL (3.4-5.0); ALBUMIN/GLOBULIN RATIO 0.8 (1.0-1.7); ALK PHOS 45 U/L (46-116); ALT (SGPT) 11 U/L (14-59); ANION GAP 8 (6-14); AST (SGOT) 18 U/L (15-37); BLOOD UREA NITROGEN 13 mg/dL (7-20); BUN/CREATININE RATIO 13 (6-20); CALCIUM 6.7 mg/dL (8.5-10.1); CARBON DIOXIDE 23 mmol/L (21-32); CHLORIDE 110 mmol/L (98-107); GFR 55.6; GLUCOSE 123 mg/dL (70-99); POTASSIUM 5.2 mmol/L (3.5-5.1); SODIUM 141 mmol/L (136-145); TOTAL BILIRUBIN 0.3 mg/dL (0.2-1.0); TOTAL PROTEIN 5.1 g/dL (6.4-8.2)
[2017-09-08] MEDS: ASPIRIN ENTERIC COATED 325 MG TABLET.DR. PO (07:38)
[2017-09-08] MEDS: MAGNESIUM OXIDE 400 MG TABLET PO (07:38)
[2017-09-08] MEDS: LACTOBACILLUS RHAMNOSUS GG 1 CAPSULE. PO ×2 (07:38→20:32)
[2017-09-08] MEDS: DOCUSATE SODIUM 100 MG CAPSULE. PO (07:38)
[2017-09-08] MEDS: POLYETHYLENE GLYCOL 3350 17 GM PACKET. PO (07:39)
[2017-09-08] MEDS: GABAPENTIN 300 MG CAPSULE. PO ×2 (07:41→20:32)
[2017-09-08] MEDS: oxyCODONE ER 10 MG TAB.ER.12H PO ×2 (07:41→20:32)
[2017-09-08] MEDS: MULTIVITAMIN with MINERAL TABLET. PO (07:42)
[2017-09-08] MEDS: CITALOPRAM 20 MG TABLET. PO (07:42)
[2017-09-08] MEDS: LISINOPRIL 10 MG TABLET PO (07:42)
[2017-09-08] MEDS: ASCORBIC ACID 500 MG TABLET PO (07:42)
[2017-09-08] MEDS: NICOTINE 14MG PATCH. TD (09:00)
[2017-09-08] MEDS: MORPHINE SULFATE 4 MG/ML DISP.SYRIN. IV ×10 (11:36→23:58)
[2017-09-08] MEDS: IPRATRPIUM/ALBUTEROL 0.5/2.5MG 3 ML NEBU. NEB ×3 (11:41→19:54)
[2017-09-08] MEDS: ANTI-COAG MONITOR BY PHARMACY. MC (14:49)
[2017-09-08] MEDS: HEPARIN for IV BOLUS 10,000 UNIT/10 ML VIAL. IV (15:29)
[2017-09-08] MEDS: HEPARIN 25,000UTS/500ML PREMIX 500 ML IV (15:30)
[2017-09-08] MEDS: QUEtiapine 25 MG TABLET. PO (20:32)
[2017-09-08] MEDS: SIMVASTATIN 10 MG TABLET PO (20:32)
[2017-09-08] MEDS: hydroCHLOROthiazide 12.5 MG CAPSULE PO (21:00)
[2017-09-09] MEDS: MORPHINE SULFATE 4 MG/ML DISP.SYRIN. IV ×10 (01:55→23:06)
[2017-09-09] MEDS: MEROPENEM 500 MG in IV NORMAL SALINE 50ML 50 ML IV ×3 (05:45→18:18)
[2017-09-09] MEDS: IV NORMAL SALINE 1000ML BAG 1,000 ML IV ×4 (05:46→19:34)
[2017-09-09 06:22] LABS: ADD MAN DIFF? NO
[2017-09-09 06:28] LABS: BASO # 0.1 x10^3/uL (0.0-0.2); BASO % 1 % (0-3); EOS # 0.1 x10^3/uL (0.0-0.7); EOS % 0 % (0-3); HEMATOCRIT 28.6 % (36.0-47.0); HEMOGLOBIN 9.6 g/dL (12.0-15.5); LYMPH # 1.6 x10^3/uL (1.0-4.8); LYMPH % 10 % (24-48); MEAN CORPUSCULAR HEMOGLOBIN 32 pg (25-35); MEAN CORPUSCULAR HGB CONC 34 g/dL (31-37); MEAN CORPUSCULAR VOLUME 94 fL (79-100); MONO # 1.3 x10^3/uL (0.0-1.1); MONO % 8 % (0-9); NEUT # 13.6 x10^3uL (1.8-7.7); NEUT % 82 % (31-73); PLATELET COUNT 250 x10^3/uL (140-400); RED BLOOD COUNT 3.03 x10^6/uL (3.50-5.40); RED CELL DISTRIBUTION WIDTH 15.7 % (11.5-14.5); WHITE BLOOD COUNT 16.7 x10^3/uL (4.0-11.0)
[2017-09-09 06:43] LABS: ALBUMIN 2.1 g/dL (3.4-5.0); ALBUMIN/GLOBULIN RATIO 0.7 (1.0-1.7); ALK PHOS 52 U/L (46-116); ALT (SGPT) 11 U/L (14-59); ANION GAP 7 (6-14); AST (SGOT) 24 U/L (15-37); BLOOD UREA NITROGEN 10 mg/dL (7-20); BUN/CREATININE RATIO 11 (6-20); CALCIUM 7.3 mg/dL (8.5-10.1); CARBON DIOXIDE 24 mmol/L (21-32); CHLORIDE 111 mmol/L (98-107); CREATININE 0.9 mg/dL (0.6-1.0); GFR 62.8; GLUCOSE 109 mg/dL (70-99); POTASSIUM 4.5 mmol/L (3.5-5.1); SODIUM 142 mmol/L (136-145); TOTAL BILIRUBIN 0.3 mg/dL (0.2-1.0); TOTAL PROTEIN 5.2 g/dL (6.4-8.2)
[2017-09-09 06:45] LABS: UNFRACTIONATED HEPARIN TESTING 0.47 IU/mL (0.30-0.70)
[2017-09-09] MEDS: ASPIRIN ENTERIC COATED 325 MG TABLET.DR. PO (07:44)
[2017-09-09] MEDS: MAGNESIUM OXIDE 400 MG TABLET PO (07:45)
[2017-09-09] MEDS: LACTOBACILLUS RHAMNOSUS GG 1 CAPSULE. PO ×2 (07:45→21:02)
[2017-09-09] MEDS: MULTIVITAMIN with MINERAL TABLET. PO (07:45)
[2017-09-09] MEDS: GABAPENTIN 300 MG CAPSULE. PO ×2 (07:45→21:03)
[2017-09-09] MEDS: ASCORBIC ACID 500 MG TABLET PO (07:45)
[2017-09-09] MEDS: oxyCODONE ER 10 MG TAB.ER.12H PO ×2 (07:47→21:02)
[2017-09-09] MEDS: NICOTINE 14MG PATCH. TD (07:47)
[2017-09-09] MEDS: LISINOPRIL 10 MG TABLET PO (07:47)
[2017-09-09] MEDS: POLYETHYLENE GLYCOL 3350 17 GM PACKET. PO (07:48)
[2017-09-09] MEDS: DOCUSATE SODIUM 100 MG CAPSULE. PO (07:48)
[2017-09-09] MEDS: IPRATRPIUM/ALBUTEROL 0.5/2.5MG 3 ML NEBU. NEB ×4 (08:23→20:06)
[2017-09-09] MEDS: HEPARIN 25,000UTS/500ML PREMIX 500 ML IV (12:33)
[2017-09-09] MEDS: ANTI-COAG MONITOR BY PHARMACY. MC (14:24)
[2017-09-09] MEDS: SIMVASTATIN 10 MG TABLET PO (21:02)
[2017-09-09] MEDS: hydroCHLOROthiazide 12.5 MG CAPSULE PO (21:02)
[2017-09-09] MEDS: CITALOPRAM 20 MG TABLET. PO (21:02)
[2017-09-09] MEDS: QUEtiapine 25 MG TABLET. PO (21:02)
[2017-09-10] MEDS: IV NORMAL SALINE 1000ML BAG 1,000 ML IV ×4 (05:16→22:30)
[2017-09-10] MEDS: MORPHINE SULFATE 2 MG/ML DISP.SYRIN. IV ×4 (05:17→13:16)
[2017-09-10] MEDS: MEROPENEM 500 MG in IV NORMAL SALINE 50ML 50 ML IV ×4 (05:20→18:00)
[2017-09-10 05:25] LABS: ADD MAN DIFF? NO
[2017-09-10 05:32] LABS: BASO # 0.1 x10^3/uL (0.0-0.2); BASO % 0 % (0-3); EOS # 0.2 x10^3/uL (0.0-0.7); EOS % 1 % (0-3); HEMATOCRIT 25.7 % (36.0-47.0); HEMOGLOBIN 8.7 g/dL (12.0-15.5); LYMPH # 2.3 x10^3/uL (1.0-4.8); LYMPH % 13 % (24-48); MEAN CORPUSCULAR HEMOGLOBIN 32 pg (25-35); MEAN CORPUSCULAR HGB CONC 34 g/dL (31-37); MEAN CORPUSCULAR VOLUME 96 fL (79-100); MONO # 1.3 x10^3/uL (0.0-1.1); MONO % 8 % (0-9); NEUT # 13.4 x10^3uL (1.8-7.7); NEUT % 78 % (31-73); PLATELET COUNT 247 x10^3/uL (140-400); RED BLOOD COUNT 2.69 x10^6/uL (3.50-5.40); WHITE BLOOD COUNT 17.2 x10^3/uL (4.0-11.0)
[2017-09-10 05:55] LABS: UNFRACTIONATED HEPARIN TESTING 0.29 IU/mL (0.30-0.70)
[2017-09-10 06:03] LABS: ALBUMIN 1.7 g/dL (3.4-5.0); ALBUMIN/GLOBULIN RATIO 0.5 (1.0-1.7); ALK PHOS 73 U/L (46-116); ALT (SGPT) 12 U/L (14-59); ANION GAP 7 (6-14); AST (SGOT) 27 U/L (15-37); BLOOD UREA NITROGEN 17 mg/dL (7-20); BUN/CREATININE RATIO 14 (6-20); CALCIUM 7.5 mg/dL (8.5-10.1); CARBON DIOXIDE 23 mmol/L (21-32); CHLORIDE 112 mmol/L (98-107); CREATININE 1.2 mg/dL (0.6-1.0); GFR 45.1; GLUCOSE 85 mg/dL (70-99); POTASSIUM 4.2 mmol/L (3.5-5.1); SODIUM 142 mmol/L (136-145); TOTAL BILIRUBIN 0.3 mg/dL (0.2-1.0); TOTAL PROTEIN 4.8 g/dL (6.4-8.2)
[2017-09-10] MEDS: IPRATRPIUM/ALBUTEROL 0.5/2.5MG 3 ML NEBU. NEB ×4 (07:44→19:48)
[2017-09-10] MEDS: MULTIVITAMIN with MINERAL TABLET. PO (09:00)
[2017-09-10] MEDS: NICOTINE 14MG PATCH. TD (09:00)
[2017-09-10] MEDS: POLYETHYLENE GLYCOL 3350 17 GM PACKET. PO (09:00)
[2017-09-10] MEDS: ASCORBIC ACID 500 MG TABLET PO (09:00)
[2017-09-10] MEDS: DOCUSATE SODIUM 100 MG CAPSULE. PO (09:00)
[2017-09-10] MEDS: HEPARIN 25,000UTS/500ML PREMIX 500 ML IV (09:01)
[2017-09-10] MEDS: GABAPENTIN 300 MG CAPSULE. PO ×2 (10:15→21:33)
[2017-09-10] MEDS: LACTOBACILLUS RHAMNOSUS GG 1 CAPSULE. PO ×2 (10:15→21:33)
[2017-09-10] MEDS: MAGNESIUM OXIDE 400 MG TABLET PO (10:15)
[2017-09-10] MEDS: oxyCODONE ER 10 MG TAB.ER.12H PO ×2 (10:16→21:33)
[2017-09-10] MEDS: ASPIRIN ENTERIC COATED 325 MG TABLET.DR. PO (10:16)
[2017-09-10] MEDS: LISINOPRIL 10 MG TABLET PO (10:16)
[2017-09-10] MEDS: MORPHINE SULFATE 4 MG/ML DISP.SYRIN. IV (14:38)
[2017-09-10] MEDS: hydroCHLOROthiazide 12.5 MG CAPSULE PO (21:00)
[2017-09-10] MEDS: traMADol 50 MG TABLET PO (21:32)
[2017-09-10] MEDS: QUEtiapine 25 MG TABLET. PO (21:32)
[2017-09-10] MEDS: CITALOPRAM 20 MG TABLET. PO (21:33)
[2017-09-10] MEDS: SIMVASTATIN 10 MG TABLET PO (21:33)
[2017-09-11] MEDS: MEROPENEM 500 MG in IV NORMAL SALINE 50ML 50 ML IV ×4 (02:37→17:53)
[2017-09-11] MEDS: HEPARIN 25,000UTS/500ML PREMIX 500 ML IV (04:37)
[2017-09-11] MEDS: IV NORMAL SALINE 1000ML BAG 1,000 ML IV ×3 (05:10→17:55)
[2017-09-11 05:37] LABS: ADD MAN DIFF? NO
[2017-09-11 05:41] LABS: BASO # 0.1 x10^3/uL (0.0-0.2); BASO % 1 % (0-3); EOS % 7 % (0-3); HEMATOCRIT 22.9 % (36.0-47.0); HEMOGLOBIN 7.7 g/dL (12.0-15.5); LYMPH # 2.1 x10^3/uL (1.0-4.8); LYMPH % 15 % (24-48); MEAN CORPUSCULAR HEMOGLOBIN 32 pg (25-35); MEAN CORPUSCULAR HGB CONC 34 g/dL (31-37); MEAN CORPUSCULAR VOLUME 95 fL (79-100); MONO # 0.9 x10^3/uL (0.0-1.1); MONO % 7 % (0-9); NEUT # 9.5 x10^3uL (1.8-7.7); NEUT % 70 % (31-73); PLATELET COUNT 248 x10^3/uL (140-400); RED BLOOD COUNT 2.42 x10^6/uL (3.50-5.40); RED CELL DISTRIBUTION WIDTH 15.4 % (11.5-14.5); WHITE BLOOD COUNT 13.6 x10^3/uL (4.0-11.0)
[2017-09-11 05:58] LABS: UNFRACTIONATED HEPARIN TESTING 0.24 IU/mL (0.30-0.70)
[2017-09-11 06:04] LABS: ALBUMIN 1.5 g/dL (3.4-5.0); ALBUMIN/GLOBULIN RATIO 0.5 (1.0-1.7); ALK PHOS 53 U/L (46-116); ALT (SGPT) 12 U/L (14-59); ANION GAP 6 (6-14); AST (SGOT) 25 U/L (15-37); BLOOD UREA NITROGEN 19 mg/dL (7-20); BUN/CREATININE RATIO 16 (6-20); CALCIUM 7.7 mg/dL (8.5-10.1); CARBON DIOXIDE 23 mmol/L (21-32); CHLORIDE 107 mmol/L (98-107); CREATININE 1.2 mg/dL (0.6-1.0); GFR 45.1; GLUCOSE 89 mg/dL (70-99); POTASSIUM 4.2 mmol/L (3.5-5.1); SODIUM 136 mmol/L (136-145); TOTAL BILIRUBIN 0.3 mg/dL (0.2-1.0); TOTAL PROTEIN 4.5 g/dL (6.4-8.2)
[2017-09-11] MEDS: oxyCODONE/APAP 5/325 1 TAB TABLET PO ×2 (06:53→17:54)
[2017-09-11] MEDS: MORPHINE SULFATE 2 MG/ML DISP.SYRIN. IV (07:36)
[2017-09-11] MEDS: NICOTINE 14MG PATCH. TD (07:49)
[2017-09-11] MEDS: IPRATRPIUM/ALBUTEROL 0.5/2.5MG 3 ML NEBU. NEB ×4 (08:21→20:27)
[2017-09-11] MEDS: ASCORBIC ACID 500 MG TABLET PO (08:51)
[2017-09-11] MEDS: GABAPENTIN 300 MG CAPSULE. PO ×2 (08:51→21:07)
[2017-09-11] MEDS: MULTIVITAMIN with MINERAL TABLET. PO (08:51)
[2017-09-11] MEDS: LACTOBACILLUS RHAMNOSUS GG 1 CAPSULE. PO ×2 (08:51→21:06)
[2017-09-11] MEDS: ASPIRIN ENTERIC COATED 325 MG TABLET.DR. PO (08:51)
[2017-09-11] MEDS: oxyCODONE ER 10 MG TAB.ER.12H PO ×2 (08:52→21:00)
[2017-09-11] MEDS: DOCUSATE SODIUM 100 MG CAPSULE. PO (08:52)
[2017-09-11] MEDS: LISINOPRIL 10 MG TABLET PO (08:52)
[2017-09-11] MEDS: MAGNESIUM OXIDE 400 MG TABLET PO (08:57)
[2017-09-11] MEDS: POLYETHYLENE GLYCOL 3350 17 GM PACKET. PO (08:57)
[2017-09-11] MEDS: ALBUMIN HUMAN 5% 500 ML IV (10:58)
[2017-09-11] MEDS: ACETAMINOPHEN 325 MG SUPP.RECT. PR (13:49)
[2017-09-11 13:58] LABS: IMMEDIATE SPIN CROSSMATCH 1 1
[2017-09-11] MEDS: ACETAMINOPHEN 500 MG TABLET PO (14:02)
[2017-09-11 14:30] LABS: BASE EXCESS ABG -6 mmol/L (-3-3); HCO3 ABG 20 mmol/L (21-28); PCO2 ABG 40 mmHg (35-46); PH ABG 7.32 (7.35-7.45); PO2 ABG 51 mmHg (65-108); SAT O2 ABG 85 % (92-99)
[2017-09-11 14:31] LABS: FIO2 ABG 44
[2017-09-11] MEDS: WARFARIN 10 MG TABLET. PO (17:53)
[2017-09-11] MEDS: QUEtiapine 25 MG TABLET. PO (21:06)
[2017-09-11] MEDS: SIMVASTATIN 10 MG TABLET PO (21:07)
[2017-09-11] MEDS: CITALOPRAM 20 MG TABLET. PO (21:07)
[2017-09-12] MEDS: MEROPENEM 500 MG in IV NORMAL SALINE 50ML 50 ML IV ×2 (02:47→06:26)
[2017-09-12] MEDS: HEPARIN 25,000UTS/500ML PREMIX 500 ML IV (05:03)
[2017-09-12] MEDS: IV NORMAL SALINE 1000ML BAG 1,000 ML IV (06:27)
[2017-09-12 06:42] LABS: ADD MAN DIFF? NO
[2017-09-12 07:04] LABS: ALBUMIN 1.9 g/dL (3.4-5.0); ALBUMIN/GLOBULIN RATIO 0.6 (1.0-1.7); ALK PHOS 63 U/L (46-116); ALT (SGPT) 15 U/L (14-59); ANION GAP 11 (6-14); AST (SGOT) 33 U/L (15-37); BLOOD UREA NITROGEN 20 mg/dL (7-20); BUN/CREATININE RATIO 14 (6-20); CALCIUM 7.5 mg/dL (8.5-10.1); CARBON DIOXIDE 22 mmol/L (21-32); CHLORIDE 103 mmol/L (98-107); CREATININE 1.4 mg/dL (0.6-1.0); GFR 37.7; GLUCOSE 95 mg/dL (70-99); POTASSIUM 4.6 mmol/L (3.5-5.1); SODIUM 136 mmol/L (136-145); TOTAL BILIRUBIN 0.5 mg/dL (0.2-1.0); TOTAL PROTEIN 5.3 g/dL (6.4-8.2)
[2017-09-12 07:23] LABS: BASO # 0.1 x10^3/uL (0.0-0.2); BASO % 1 % (0-3); EOS # 1.7 x10^3/uL (0.0-0.7); EOS % 15 % (0-3); HEMATOCRIT 29.1 % (36.0-47.0); LYMPH # 0.9 x10^3/uL (1.0-4.8); LYMPH % 8 % (24-48); MEAN CORPUSCULAR HEMOGLOBIN 32 pg (25-35); MEAN CORPUSCULAR HGB CONC 34 g/dL (31-37); MEAN CORPUSCULAR VOLUME 93 fL (79-100); MONO # 0.6 x10^3/uL (0.0-1.1); MONO % 5 % (0-9); NEUT # 7.9 x10^3uL (1.8-7.7); NEUT % 71 % (31-73); PLATELET COUNT 269 x10^3/uL (140-400); RED BLOOD COUNT 3.12 x10^6/uL (3.50-5.40); RED CELL DISTRIBUTION WIDTH 15.3 % (11.5-14.5); WHITE BLOOD COUNT 11.2 x10^3/uL (4.0-11.0)
[2017-09-12 07:28] LABS: INR 1.6 (0.8-1.1); PROTHROMBIN TIME PATIENT 18.1 SEC (11.7-14.0)
[2017-09-12] MEDS: IPRATRPIUM/ALBUTEROL 0.5/2.5MG 3 ML NEBU. NEB ×2 (07:59→12:12)
[2017-09-12] MEDS: FUROSEMIDE 20 MG/2 ML VIAL. IVP (08:30)
[2017-09-12] MEDS: NICOTINE 14MG PATCH. TD (09:00)
[2017-09-12] MEDS: ASCORBIC ACID 500 MG TABLET PO (09:48)
[2017-09-12] MEDS: POLYETHYLENE GLYCOL 3350 17 GM PACKET. PO (09:48)
[2017-09-12] MEDS: MULTIVITAMIN with MINERAL TABLET. PO (09:49)
[2017-09-12] MEDS: DOCUSATE SODIUM 100 MG CAPSULE. PO (09:49)
[2017-09-12] MEDS: ASPIRIN ENTERIC COATED 325 MG TABLET.DR. PO (09:49)
[2017-09-12] MEDS: LACTOBACILLUS RHAMNOSUS GG 1 CAPSULE. PO (09:49)
[2017-09-12] MEDS: MAGNESIUM OXIDE 400 MG TABLET PO (09:49)
[2017-09-12] MEDS: GABAPENTIN 300 MG CAPSULE. PO (09:49)
[2017-09-12] MEDS: oxyCODONE ER 10 MG TAB.ER.12H PO (09:49)
[2017-09-12 11:30] LABS: UNFRACTIONATED HEPARIN TESTING > 1.10 IU/mL (0.30-0.70)
[2017-09-12] MEDS ORDERED: POLYETHYLENE GLYCOL 3350 17 GM PACKET. PO (12:45)
[2017-09-12] MEDS: ANTI-COAG MONITOR BY PHARMACY. MC (14:42)
[2017-09-12] MEDS ORDERED: WARFARIN 7.5 MG TABLET. PO (16:00)
== END 2017-09-12 17:27 | DRG 853 ==
LOC: 1 WEST ICU 08-24 13:59 → 2 NORTH 08-25 14:43 → 1 WEST ICU 09-07 12:49 → 2 NORTH 09-10 09:43 → 2 SOUTH 08-22 18:43 → ER 15:16 → 1 WEST ICU 17:52
PROVIDERS: Internal Medicine
PROC: 03CK0ZZ Extirpation of Matter from Right Internal Carotid Artery, Open Approach (ICD-10-PCS; principal; 2017-08-21 15:03)
PROC: 04100JK Bypass Abdominal Aorta to Bilateral Femoral Arteries with Synthetic Substitute, Open Approach (ICD-10-PCS; 2017-08-21 15:03)
PROC: 04C Lower Arteries, Extirpation (ICD-10-PCS; 2017-08-21 15:03)
PROC: 04C Lower Arteries, Extirpation (ICD-10-PCS; 2017-08-21 15:03)
PROC: 04CL0ZZ Extirpation of Matter from Left Femoral Artery, Open Approach (ICD-10-PCS; 2017-08-21 15:03)
PROC: 04CK0ZZ Extirpation of Matter from Right Femoral Artery, Open Approach (ICD-10-PCS; 2017-08-21 15:03)
PROC: 04SB0ZZ Reposition Inferior Mesenteric Artery, Open Approach (ICD-10-PCS; 2017-08-21 15:03)
PROC: 0LBV0ZZ Excision of Right Foot Tendon, Open Approach (ICD-10-PCS; 2017-08-21 15:03)
PROC: 0LBS0ZZ Excision of Right Ankle Tendon, Open Approach (ICD-10-PCS; 2017-08-21 15:03)
PROC: 02HV33Z Insertion of Infusion Device into Superior Vena Cava, Percutaneous Approach (ICD-10-PCS; 2017-08-21 15:03)
PROC: 03CL0ZZ Extirpation of Matter from Left Internal Carotid Artery, Open Approach (ICD-10-PCS; 2017-08-21 15:03)
PROC: 30233L1 Transfusion of Nonautologous Fresh Plasma into Peripheral Vein, Percutaneous Approach (ICD-10-PCS; 2017-08-21 15:03)
PROC: 30233N1 Transfusion of Nonautologous Red Blood Cells into Peripheral Vein, Percutaneous Approach (ICD-10-PCS; 2017-08-21 15:03)
PROC: 30233K1 Transfusion of Nonautologous Frozen Plasma into Peripheral Vein, Percutaneous Approach (ICD-10-PCS; 2017-08-21 15:03)
PROC: 5A09357 Assistance with Respiratory Ventilation, Less than 24 Consecutive Hours, Continuous Positive Airway Pressure (ICD-10-PCS; 2017-08-21 15:03)
PROC: 03CH0ZZ Extirpation of Matter from Right Common Carotid Artery, Open Approach (ICD-10-PCS; 2017-08-21 15:03)
PROC: 03CJ0ZZ Extirpation of Matter from Left Common Carotid Artery, Open Approach (ICD-10-PCS; 2017-08-21 15:03)
PROC: B41D1ZZ Fluoroscopy of Aorta and Bilateral Lower Extremity Arteries using Low Osmolar Contrast (ICD-10-PCS; 2017-08-21 15:03)
PROC: 5A09457 Assistance with Respiratory Ventilation, 24-96 Consecutive Hours, Continuous Positive Airway Pressure (ICD-10-PCS; 2017-08-21 15:03)
PROC: 3E03317 Introduction of Other Thrombolytic into Peripheral Vein, Percutaneous Approach (ICD-10-PCS; 2017-08-21 15:03)
DX: A41.9 Sepsis, unspecified organism (principal); G93.41 Metabolic encephalopathy; N17.0 Acute kidney failure with tubular necrosis; I63.9 Cerebral infarction, unspecified; I82.220 Acute embolism and thrombosis of inferior vena cava; J96.01 Acute respiratory failure with hypoxia; E87.2 Acidosis; I74.5 Embolism and thrombosis of iliac artery; J98.11 Atelectasis; I38 Endocarditis, valve unspecified; E11.51 Type 2 diabetes mellitus with diabetic peripheral angiopathy without gangrene; E11.621 Type 2 diabetes mellitus with foot ulcer; E83.42 Hypomagnesemia; E86.0 Dehydration; E87.6 Hypokalemia; F17.200 Nicotine dependence, unspecified, uncomplicated; G47.00 Insomnia, unspecified; G89.4 Chronic pain syndrome; I11.0 Hypertensive heart disease with heart failure; F41.9 Anxiety disorder, unspecified; S92.351A Displaced fracture of fifth metatarsal bone, right foot, initial encounter for closed fracture; I70.1 Atherosclerosis of renal artery; W18.30XA Fall on same level, unspecified, initial encounter; I35.0 Nonrheumatic aortic (valve) stenosis; I50.9 Heart failure, unspecified; I65.23 Occlusion and stenosis of bilateral carotid arteries; I95.81 Postprocedural hypotension; J44.9 Chronic obstructive pulmonary disease, unspecified; K59.00 Constipation, unspecified; L97.519 Non-pressure chronic ulcer of other part of right foot with unspecified severity; R56.9 Unspecified convulsions; Z79.899 Other long term (current) drug therapy; Z82.49 Family history of ischemic heart disease and other diseases of the circulatory system; Z90.49 Acquired absence of other specified parts of digestive tract; Z90.710 Acquired absence of both cervix and uterus; Z91.81 History of falling; Z88.5 Allergy status to narcotic agent; Z88.8 Allergy status to other drugs, medicaments and biological substances; Y93.89 Activity, other specified; Y92.89 Other specified places as the place of occurrence of the external cause; Y99.8 Other external cause status
CPT/HCPCS: 36246; 36252; 36415; 36569; 36600; 70450; 70496; 70498; 70551; 71045; 73610; 73630; 75630; 75635; 75726; 76937; 80048; 80053; 80061; 80069; 80202; 80307; 80329; 81001; 82140; 82553; 82607; 82805; 82962; 83605; 83690; 83735; 83880; 83930; 84132; 84443; 84484; 85007; 85014; 85018; 85025; 85027; 85520; 85610; 85651; 85730; 86140; 86850; 86900; 86901; 86920; 86927; 87040; 87070; 87071; 87075; 87186; 87205; 87324; 87641; 88304; 93005; 93306; 93312; 93325; 93880; 93923; 94640; 94660; 94760; 96374; 97110-GP; 97112-GP; 97162-GP; 97164; 97164-GP; 97166-GO; 97168-GO; 97530-GO; 97530-GP; 97535-GO; 99152; 99153; 99291; A7015; C1769; C1892; C1894; C8929; G0480; G6039; J0360; J0690; J0692; J0696; J0780; J1100; J1644; J1940; J2001; J2060; J2150; J2185; J2250; J2270; J2370; J2405; J2704; J2710; J2795; J2997; J3010; J3370; J3475; J3490; J7030; J7040; J7050; J7120; J7620; P9016; P9017; P9045; Q9967; S0028

== ENCOUNTER 2017-09-19 22:16 | Inpatient (IN) | payer MEDICARE ==
[2017-09-19] MEDS: oxyCODONE ER 10 MG TAB.ER.12H PO (23:40)
[2017-09-19] MEDS: IV NORMAL SALINE 1000ML BAG 1,000 ML IV (23:40)
[2017-09-19 23:44] LABS: BASO # 0.1 x10^3/uL (0.0-0.2); BASO % 1 % (0-3); EOS % 0 % (0-3); HEMOGLOBIN 7.2 g/dL (12.0-15.5); LYMPH # 3.6 x10^3/uL (1.0-4.8); LYMPH % 14 % (24-48); MEAN CORPUSCULAR HEMOGLOBIN 31 pg (25-35); MEAN CORPUSCULAR HGB CONC 35 g/dL (31-37); MEAN CORPUSCULAR VOLUME 89 fL (79-100); MONO # 1.3 x10^3/uL (0.0-1.1); MONO % 5 % (0-9); NEUT # 21.1 x10^3uL (1.8-7.7); NEUT % 81 % (31-73); PLATELET COUNT 323 x10^3/uL (140-400); RED BLOOD COUNT 2.31 x10^6/uL (3.50-5.40); RED CELL DISTRIBUTION WIDTH 15.8 % (11.5-14.5); WHITE BLOOD COUNT 26.1 x10^3/uL (4.0-11.0)
[2017-09-19 23:47] LABS: ADD MAN DIFF? YES; HEMATOCRIT 20.7 % (36.0-47.0)
[2017-09-19 23:52] LABS: INR 3.9 (0.8-1.1); PROTHROMBIN TIME PATIENT 37.2 SEC (11.7-14.0)
[2017-09-19 23:57] LABS: ALBUMIN 2.1 g/dL (3.4-5.0); ALBUMIN/GLOBULIN RATIO 0.9 (1.0-1.7); ALK PHOS 39 U/L (46-116); ALT (SGPT) 19 U/L (14-59); ANION GAP 4 (6-14); AST (SGOT) 27 U/L (15-37); BLOOD UREA NITROGEN 52 mg/dL (7-20); BUN/CREATININE RATIO 52 (6-20); CALCIUM 7.8 mg/dL (8.5-10.1); CARBON DIOXIDE 30 mmol/L (21-32); CHLORIDE 102 mmol/L (98-107); GFR 55.6; GLUCOSE 113 mg/dL (70-99); POTASSIUM 4.7 mmol/L (3.5-5.1); SODIUM 136 mmol/L (136-145); TOTAL BILIRUBIN 0.5 mg/dL (0.2-1.0); TOTAL PROTEIN 4.4 g/dL (6.4-8.2)
[2017-09-20] MEDS: PHYTONADIONE 10 MG/ML AMPUL. SQ (00:54)
[2017-09-20] MEDS: HYDROcodone/APAP 10/325 1 TAB TABLET PO (00:54)
[2017-09-20 01:29] LABS: IMMEDIATE SPIN CROSSMATCH 1 2
[2017-09-20] MEDS: VANCOMYCIN 2 GM in IV NORMAL SALINE 500ML BAG 500 ML IV (02:34)
[2017-09-20] MEDS: VANCOMYCIN PER PHARMACY MC (02:56)
[2017-09-20 04:13] LABS: % BANDS 1 % (0-9); % LYMPHS 11 % (24-48); % METAS 1 % (0-0); % MONOS 1 % (0-10); % MYELOS 3 % (0-0); % SEGS 83 % (35-66); NUCLEATED RBC 3; PLT ESTIMATE ADEQUATE (ADEQUATE); POLYCHROMASIA SLIGHT
[2017-09-20 04:37] LABS: ADD MAN DIFF? NO
[2017-09-20 04:54] LABS: BASO % 0 % (0-3); EOS # 0.2 x10^3/uL (0.0-0.7); EOS % 1 % (0-3); LYMPH # 3.8 x10^3/uL (1.0-4.8); LYMPH % 17 % (24-48); MEAN CORPUSCULAR HEMOGLOBIN 31 pg (25-35); MEAN CORPUSCULAR HGB CONC 35 g/dL (31-37); MEAN CORPUSCULAR VOLUME 89 fL (79-100); MONO # 1.4 x10^3/uL (0.0-1.1); MONO % 6 % (0-9); NEUT % 76 % (31-73); PLATELET COUNT 287 x10^3/uL (140-400); RED BLOOD COUNT 1.82 x10^6/uL (3.50-5.40); WHITE BLOOD COUNT 22.4 x10^3/uL (4.0-11.0)
[2017-09-20 05:06] LABS: INR 2.8 (0.8-1.1); PROTHROMBIN TIME PATIENT 28.5 SEC (11.7-14.0)
[2017-09-20 05:11] LABS: HEMATOCRIT 16.2 % (36.0-47.0); HEMOGLOBIN 5.6 g/dL (12.0-15.5)
[2017-09-20 05:27] LABS: ANION GAP 4 (6-14); BLOOD UREA NITROGEN 50 mg/dL (7-20); CALCIUM 7.3 mg/dL (8.5-10.1); CARBON DIOXIDE 30 mmol/L (21-32); CHLORIDE 103 mmol/L (98-107); GFR 55.6; GLUCOSE 92 mg/dL (70-99); POTASSIUM 4.1 mmol/L (3.5-5.1); SODIUM 137 mmol/L (136-145)
[2017-09-20] MEDS: ONDANSETRON PF 4 MG/2 ML VIAL. IV (05:31)
[2017-09-20] MEDS: MORPHINE SULFATE 2 MG/ML DISP.SYRIN. IV ×6 (05:32→18:39)
[2017-09-20] MEDS: PIPERACILLIN/TAZOBACTAM 3.375 GM in IV NORMAL SALINE 50ML 50 ML IV ×2 (05:33→11:21)
[2017-09-20] MEDS: PANTOPRAZOLE IV PUSH 40 MG VIAL. IVP (09:07)
[2017-09-20] MEDS: oxyCODONE ER 10 MG TAB.ER.12H PO ×2 (09:09→20:46)
[2017-09-20] MEDS: oxyCODONE/APAP 5/325 1 TAB TABLET PO ×2 (09:09→20:46)
[2017-09-20 09:45] LABS: IMMEDIATE SPIN CROSSMATCH 1
[2017-09-20] MEDS: CEFEPIME HCL IV Push 2 GM VIAL. IVP ×2 (11:21→20:48)
[2017-09-20] MEDS ORDERED: PHENYLEPHRINE in 0.9% NACL PF 1 MG/10 ML SYRINGE. IV (12:00)
[2017-09-20] MEDS: IV NORMAL SALINE 1000ML BAG 1,000 ML IV ×2 (13:12→20:47)
[2017-09-20] MEDS: VANCOMYCIN 1.25 GM in IV NORMAL SALINE 250ML 250 ML IV (13:16)
[2017-09-20 13:20] LABS: HEMATOCRIT 23.4 % (36.0-47.0); HEMOGLOBIN 8.1 g/dL (12.0-15.5); MEAN CORPUSCULAR HEMOGLOBIN 31 pg (25-35); MEAN CORPUSCULAR HGB CONC 35 g/dL (31-37); MEAN CORPUSCULAR VOLUME 88 fL (79-100); PLATELET COUNT 237 x10^3/uL (140-400); RED BLOOD COUNT 2.65 x10^6/uL (3.50-5.40); RED CELL DISTRIBUTION WIDTH 15.3 % (11.5-14.5); WHITE BLOOD COUNT 19.4 x10^3/uL (4.0-11.0)
[2017-09-20] MEDS ORDERED: PROPOFOL 0 ML IV (15:31)
[2017-09-20] MEDS ORDERED: PROPOFOL 40 ML IV (15:51)
[2017-09-20] MEDS: EPINEPHrine SYRINGE 1 MG/10 ML SYRINGE IV (16:10)
[2017-09-20] MEDS ORDERED: EPINEPHrine SYRINGE 1 MG/10 ML SYRINGE (16:25)
[2017-09-20] MEDS: PANTOPRAZOLE SODIUM IV DRIP 80 MG in IV NORMAL SALINE 100ML 100 ML IV (17:02)
[2017-09-20 20:18] LABS: MRSA BY PCR Negative (Negative)
[2017-09-20] MEDS: LACTOBACILLUS RHAMNOSUS GG 1 CAPSULE. PO (20:46)
[2017-09-20] MEDS: hydroCHLOROthiazide 12.5 MG CAPSULE PO (20:46)
[2017-09-20] MEDS: CITALOPRAM 20 MG TABLET. PO (20:46)
[2017-09-20] MEDS ORDERED: CEFEPIME HCL 2 GM in IV DEXTROSE 5% 100ML 100 ML IV (21:00)
[2017-09-20] MEDS: QUEtiapine 25 MG TABLET. PO (22:14)
[2017-09-21] MEDS: VANCOMYCIN 1.25 GM in IV NORMAL SALINE 250ML 250 ML IV (02:56)
[2017-09-21] MEDS: PANTOPRAZOLE SODIUM IV DRIP 80 MG in IV NORMAL SALINE 100ML 100 ML IV ×3 (02:57→23:00)
[2017-09-21] MEDS: HYDROcodone/APAP 10/325 1 TAB TABLET PO ×3 (03:01→19:58)
[2017-09-21 06:13] LABS: ADD MAN DIFF? NO
[2017-09-21 06:28] LABS: BASO % 0 % (0-3); EOS # 0.9 x10^3/uL (0.0-0.7); EOS % 5 % (0-3); HEMATOCRIT 23.3 % (36.0-47.0); HEMOGLOBIN 8.1 g/dL (12.0-15.5); LYMPH # 2.2 x10^3/uL (1.0-4.8); LYMPH % 13 % (24-48); MEAN CORPUSCULAR HEMOGLOBIN 32 pg (25-35); MEAN CORPUSCULAR HGB CONC 35 g/dL (31-37); MEAN CORPUSCULAR VOLUME 90 fL (79-100); MONO # 0.8 x10^3/uL (0.0-1.1); MONO % 5 % (0-9); NEUT # 13.1 x10^3uL (1.8-7.7); NEUT % 77 % (31-73); PLATELET COUNT 281 x10^3/uL (140-400); RED BLOOD COUNT 2.58 x10^6/uL (3.50-5.40); WHITE BLOOD COUNT 17.1 x10^3/uL (4.0-11.0)
[2017-09-21 06:40] LABS: ALBUMIN 1.9 g/dL (3.4-5.0); ALBUMIN/GLOBULIN RATIO 0.8 (1.0-1.7); ALK PHOS 39 U/L (46-116); ALT (SGPT) 15 U/L (14-59); ANION GAP 4 (6-14); AST (SGOT) 23 U/L (15-37); BLOOD UREA NITROGEN 30 mg/dL (7-20); BUN/CREATININE RATIO 38 (6-20); CALCIUM 7.8 mg/dL (8.5-10.1); CARBON DIOXIDE 31 mmol/L (21-32); CHLORIDE 104 mmol/L (98-107); CREATININE 0.8 mg/dL (0.6-1.0); GLUCOSE 72 mg/dL (70-99); POTASSIUM 3.5 mmol/L (3.5-5.1); SODIUM 139 mmol/L (136-145); TOTAL BILIRUBIN 0.5 mg/dL (0.2-1.0); TOTAL PROTEIN 4.2 g/dL (6.4-8.2)
[2017-09-21 07:18] LABS: INR 1.2 (0.8-1.1); PROTHROMBIN TIME PATIENT 15.1 SEC (11.7-14.0)
[2017-09-21] MEDS: LACTOBACILLUS RHAMNOSUS GG 1 CAPSULE. PO ×2 (08:16→20:43)
[2017-09-21] MEDS: oxyCODONE/APAP 5/325 1 TAB TABLET PO ×2 (08:16→20:43)
[2017-09-21] MEDS: oxyCODONE ER 10 MG TAB.ER.12H PO ×2 (08:16→20:44)
[2017-09-21] MEDS: CEFEPIME HCL IV Push 2 GM VIAL. IVP ×2 (08:17→20:48)
[2017-09-21] MEDS: MORPHINE SULFATE 2 MG/ML DISP.SYRIN. IV ×4 (09:55→19:25)
[2017-09-21] MEDS: AMINO AC 3%/ELECTROLYTE/GLYCER 1,000 ML IV ×2 (10:32→23:19)
[2017-09-21] MEDS: ONDANSETRON PF 4 MG/2 ML VIAL. IV (20:11)
[2017-09-21] MEDS: CITALOPRAM 20 MG TABLET. PO (20:43)
[2017-09-21] MEDS: QUEtiapine 25 MG TABLET. PO (20:44)
[2017-09-21] MEDS: hydroCHLOROthiazide 12.5 MG CAPSULE PO (20:44)
[2017-09-22] MEDS: HYDROcodone/APAP 10/325 1 TAB TABLET PO ×5 (03:12→23:06)
[2017-09-22 05:35] LABS: ADD MAN DIFF? NO
[2017-09-22 05:40] LABS: BASO % 0 % (0-3); EOS # 0.7 x10^3/uL (0.0-0.7); EOS % 6 % (0-3); HEMATOCRIT 24.3 % (36.0-47.0); HEMOGLOBIN 8.4 g/dL (12.0-15.5); LYMPH # 1.2 x10^3/uL (1.0-4.8); LYMPH % 9 % (24-48); MEAN CORPUSCULAR HEMOGLOBIN 32 pg (25-35); MEAN CORPUSCULAR HGB CONC 35 g/dL (31-37); MEAN CORPUSCULAR VOLUME 92 fL (79-100); MONO # 0.8 x10^3/uL (0.0-1.1); MONO % 6 % (0-9); NEUT # 10.5 x10^3uL (1.8-7.7); NEUT % 79 % (31-73); PLATELET COUNT 302 x10^3/uL (140-400); RED BLOOD COUNT 2.64 x10^6/uL (3.50-5.40); RED CELL DISTRIBUTION WIDTH 15.6 % (11.5-14.5); WHITE BLOOD COUNT 13.3 x10^3/uL (4.0-11.0)
[2017-09-22 06:30] LABS: ALBUMIN 1.6 g/dL (3.4-5.0); ALBUMIN/GLOBULIN RATIO 0.6 (1.0-1.7); ALK PHOS 43 U/L (46-116); ALT (SGPT) 15 U/L (14-59); ANION GAP 3 (6-14); AST (SGOT) 30 U/L (15-37); BLOOD UREA NITROGEN 18 mg/dL (7-20); BUN/CREATININE RATIO 23 (6-20); CALCIUM 7.7 mg/dL (8.5-10.1); CARBON DIOXIDE 29 mmol/L (21-32); CHLORIDE 100 mmol/L (98-107); CREATININE 0.8 mg/dL (0.6-1.0); GLUCOSE 94 mg/dL (70-99); POTASSIUM 3.6 mmol/L (3.5-5.1); SODIUM 132 mmol/L (136-145); TOTAL BILIRUBIN 0.5 mg/dL (0.2-1.0); TOTAL PROTEIN 4.4 g/dL (6.4-8.2)
[2017-09-22] MEDS: oxyCODONE ER 10 MG TAB.ER.12H PO ×2 (08:27→20:22)
[2017-09-22] MEDS: oxyCODONE/APAP 5/325 1 TAB TABLET PO ×2 (08:27→20:23)
[2017-09-22] MEDS: LACTOBACILLUS RHAMNOSUS GG 1 CAPSULE. PO ×2 (08:27→20:23)
[2017-09-22] MEDS: CEFEPIME HCL IV Push 2 GM VIAL. IVP (08:28)
[2017-09-22] MEDS: PANTOPRAZOLE SODIUM IV DRIP 80 MG in IV NORMAL SALINE 100ML 100 ML IV ×2 (08:30→18:15)
[2017-09-22] MEDS: AMINO AC 3%/ELECTROLYTE/GLYCER 1,000 ML IV ×2 (11:24→23:06)
[2017-09-22] MEDS: ONDANSETRON PF 4 MG/2 ML VIAL. IV (16:21)
[2017-09-22] MEDS: MORPHINE SULFATE 2 MG/ML DISP.SYRIN. IV (18:15)
[2017-09-22] MEDS: hydroCHLOROthiazide 12.5 MG CAPSULE PO (20:22)
[2017-09-22] MEDS: QUEtiapine 25 MG TABLET. PO (20:23)
[2017-09-22] MEDS: CITALOPRAM 20 MG TABLET. PO (20:23)
[2017-09-23] MEDS: PANTOPRAZOLE SODIUM IV DRIP 80 MG in IV NORMAL SALINE 100ML 100 ML IV (04:01)
[2017-09-23] MEDS: MORPHINE SULFATE 2 MG/ML DISP.SYRIN. IV (04:01)
[2017-09-23] MEDS: LACTOBACILLUS RHAMNOSUS GG 1 CAPSULE. PO ×2 (08:10→20:25)
[2017-09-23] MEDS: oxyCODONE ER 10 MG TAB.ER.12H PO ×2 (08:10→20:27)
[2017-09-23] MEDS: oxyCODONE/APAP 5/325 1 TAB TABLET PO ×2 (08:11→20:28)
[2017-09-23] MEDS: ONDANSETRON PF 4 MG/2 ML VIAL. IV (08:12)
[2017-09-23] MEDS: LABETALOL 20 MG/4 ML DISP.SYRIN. IVP (08:26)
[2017-09-23] MEDS: LISINOPRIL 10 MG TABLET PO (10:53)
[2017-09-23] MEDS: amLODIPine BESYLATE 5 MG TABLET PO (10:54)
[2017-09-23] MEDS: HYDROcodone/APAP 10/325 1 TAB TABLET PO ×2 (10:57→16:14)
[2017-09-23] MEDS: PANTOPRAZOLE 40 MG TABLET.DR. PO (16:14)
[2017-09-23] MEDS: CITALOPRAM 20 MG TABLET. PO (20:26)
[2017-09-23] MEDS: QUEtiapine 25 MG TABLET. PO (20:26)
[2017-09-23] MEDS: hydroCHLOROthiazide 12.5 MG CAPSULE PO (20:27)
[2017-09-24] MEDS: HYDROcodone/APAP 10/325 1 TAB TABLET PO ×3 (02:02→11:38)
[2017-09-24 06:43] LABS: HEMATOCRIT 23.2 % (36.0-47.0); HEMOGLOBIN 7.9 g/dL (12.0-15.5); MEAN CORPUSCULAR HEMOGLOBIN 32 pg (25-35); MEAN CORPUSCULAR HGB CONC 34 g/dL (31-37); MEAN CORPUSCULAR VOLUME 93 fL (79-100); PLATELET COUNT 303 x10^3/uL (140-400); RED CELL DISTRIBUTION WIDTH 16.4 % (11.5-14.5); WHITE BLOOD COUNT 7.7 x10^3/uL (4.0-11.0)
[2017-09-24] MEDS: LACTOBACILLUS RHAMNOSUS GG 1 CAPSULE. PO (08:44)
[2017-09-24] MEDS: PANTOPRAZOLE 40 MG TABLET.DR. PO (08:44)
[2017-09-24] MEDS: oxyCODONE/APAP 5/325 1 TAB TABLET PO (08:44)
[2017-09-24] MEDS: oxyCODONE ER 10 MG TAB.ER.12H PO (08:44)
[2017-09-24] MEDS: LISINOPRIL 10 MG TABLET PO (08:45)
[2017-09-24] MEDS: amLODIPine BESYLATE 5 MG TABLET PO ×2 (08:45→11:38)
[2017-09-24] MEDS: MORPHINE SULFATE 2 MG/ML DISP.SYRIN. IV (13:51)
[2017-09-24 14:18] LABS: INR 1.1 (0.8-1.1); PROTHROMBIN TIME PATIENT 13.6 SEC (11.7-14.0)
[2017-09-24] MEDS ORDERED: WARFARIN 5 MG TABLET. PO (16:00)
[2017-09-25] MEDS ORDERED: amLODIPine BESYLATE 10 MG TABLET PO (09:00)
== END 2017-09-24 15:41 | disposition home or self-care (01) | DRG 380 ==
LOC: 1 WEST ICU 22:16 → 2 NORTH 09-21 23:13
PROC: 0DB38ZX Excision of Lower Esophagus, Via Natural or Artificial Opening Endoscopic, Diagnostic (ICD-10-PCS; principal; 2017-09-20 15:30)
PROC: 0W3P8ZZ Control Bleeding in Gastrointestinal Tract, Via Natural or Artificial Opening Endoscopic (ICD-10-PCS; 2017-09-20 15:30)
PROC: 30233N1 Transfusion of Nonautologous Red Blood Cells into Peripheral Vein, Percutaneous Approach (ICD-10-PCS; 2017-09-20 15:44)
PROC: 30233K1 Transfusion of Nonautologous Frozen Plasma into Peripheral Vein, Percutaneous Approach (ICD-10-PCS; 2017-09-20 15:44)
DX: K22.11 Ulcer of esophagus with bleeding (principal); G93.40 Encephalopathy, unspecified; N17.0 Acute kidney failure with tubular necrosis; D62 Acute posthemorrhagic anemia; D68.9 Coagulation defect, unspecified; K44.9 Diaphragmatic hernia without obstruction or gangrene; I11.0 Hypertensive heart disease with heart failure; M79.7 Fibromyalgia; F41.9 Anxiety disorder, unspecified; J44.9 Chronic obstructive pulmonary disease, unspecified; I73.9 Peripheral vascular disease, unspecified; F12.90 Cannabis use, unspecified, uncomplicated; G40.909 Epilepsy, unspecified, not intractable, without status epilepticus; G47.00 Insomnia, unspecified; F32.9 Major depressive disorder, single episode, unspecified; D72.829 Elevated white blood cell count, unspecified; K21.9 Gastro-esophageal reflux disease without esophagitis; K57.90 Diverticulosis of intestine, part unspecified, without perforation or abscess without bleeding; I50.9 Heart failure, unspecified; I48.0 Paroxysmal atrial fibrillation; Z86.73 Personal history of transient ischemic attack (TIA), and cerebral infarction without residual deficits; Z82.49 Family history of ischemic heart disease and other diseases of the circulatory system; Z87.891 Personal history of nicotine dependence; Z88.6 Allergy status to analgesic agent; Z88.1 Allergy status to other antibiotic agents; Z88.5 Allergy status to narcotic agent; Z90.710 Acquired absence of both cervix and uterus; Z83.3 Family history of diabetes mellitus; Z80.0 Family history of malignant neoplasm of digestive organs; Z80.3 Family history of malignant neoplasm of breast; Z79.899 Other long term (current) drug therapy; Z79.82 Long term (current) use of aspirin; Z79.01 Long term (current) use of anticoagulants
CPT/HCPCS: 36415; 71250; 74176; 80048; 80053; 85007; 85025; 85027; 85610; 86850; 86900; 86901; 86920; 86927; 87040; 87641; 88305; 88312; 88341; 88342; 97116-GP; 97163-GP; 97166-GO; 97530-GP; C9113; J0171; J0692; J2270; J2370; J2405; J2543; J2704; J3370; J3430; J3490; J7030; J7040; J7050; P9016; P9017

== ENCOUNTER 2017-11-12 15:40 | Emergency (ER) | payer MEDICARE ==
[2017-09-24 11:38] VITALS: BP 170/62
[~2017-11-12 15:40] MED LIST changes: +ACET500T68 PO; +ALBU0.63 NEB; +ASCO-72 PO; +ASPI325T8 PO; +ATOR10TA60 PO; +CLON0.1T PO; +DOCU-109 PO; +GABA-586 PO; +HYDR20VI5 IJ; +LACT1CAP2 PO; +MAGN400O7 PO; +MAGN400T3 PO; +MULT1TAB52 PO; +NICO1PAT25 TP; +ONDA4TAB7 PO; +OXYC-323 PO; +POLY17PO29 PO; +PRED20TA PO; +TRAM50TA PO
== END 2017-11-12 17:43 | disposition left against medical advice (07) ==
LOC: ER 15:40
DX: R42 Dizziness and giddiness (principal); R06.02 Shortness of breath; Z53.21 Procedure and treatment not carried out due to patient leaving prior to being seen by health care provider

== ENCOUNTER 2018-02-08 15:42 | Inpatient (IN) | payer MEDICARE ==
[~2018-02-08] VITALS: Ht 177.8 cm; Wt 82.6 kg
[~2018-02-08 15:42] MED LIST changes: -GABA-586 PO; +GABA300C18 PO; -HYDR-2766 PO; +HYDR-2769 PO; -OXYC-323 PO; -OXYC10TA45 PO; +OXYC10TA46 PO; +OXYC1TAB15 PO
[2018-02-08 15:55] LABS: BASO # 0.1 x10^3/uL (0.0-0.2); BASO % 1 % (0-3); EOS % 0 % (0-3); HEMATOCRIT 39.1 % (36.0-47.0); HEMOGLOBIN 13.2 g/dL (12.0-15.5); LYMPH % 14 % (24-48); MEAN CORPUSCULAR HEMOGLOBIN 31 pg (25-35); MEAN CORPUSCULAR HGB CONC 34 g/dL (31-37); MEAN CORPUSCULAR VOLUME 91 fL (79-100); MONO % 7 % (0-9); NEUT # 11.2 x10^3uL (1.8-7.7); NEUT % 79 % (31-73); PLATELET COUNT 279 x10^3/uL (140-400); RED BLOOD COUNT 4.32 x10^6/uL (3.50-5.40); RED CELL DISTRIBUTION WIDTH 17.1 % (11.5-14.5); WHITE BLOOD COUNT 14.2 x10^3/uL (4.0-11.0)
--- NOTE | 2018-02-08 15:56 | EKG ---
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
[2018-02-08] MEDS ORDERED: IPRATRPIUM/ALBUTEROL 0.5/2.5MG 3 ML NEBU. NEB ONE (16:00)
--- NOTE | 2018-02-08 16:03 | PHYS DOC ---
Past Medical History Past Medical History: Anxiety, Fibromyalgia, Hypertension, Other Additional Past Medical Histor: chronic pain Past Surgical History: Appendectomy, Hysterectomy, Other Additional Past Surgical Histo: fecal transplant, rotator cuff repair Alcohol Use: None Drug Use: None Adult General Chief Complaint Chief Complaint: DYSPNEA/RESPIRATOY DISTRESS HPI HPI 67-year-old female presenting with acute respiratory failure. patient is a very poor historian. her soa started today and became worse. EMS was called. The patient was in the mid 70s for oxygen saturations and in respiratory distress. The patient was placed on CPAP by paramedics. She has a dull mild to moderate pain in her chest that has been going on for the past few hours. Past medical history and surgical history: History of fibromyalgia hypertension history of stroke history of GI bleed on warfarin, history of appendectomy and hysterectomy. History of peripheral arterial disease CHF last echocardiogram on August 2017 showed 55% ejection fraction. History of A. fib, bilateral carotid artery surgeries, AAA repair, renal artery endarterectomy, history of severe COPD and history of seizure disorder. Social history former smoker denies drinking. Review of systems is negative for abdominal pain chest pain. Positive for fevers. Negative for headache or syncope. All other review of systems is negative unless otherwise noted in history of present illness. ED course: 67-year-old female presenting to the emergency department today with acute hypoxic respiratory failure. On arrival she was placed on BiPAP which improved her work of breathing. She was quite tachycardic and with labored breathing. EKG initially obtained showed artifact but did not meet STEMI criteria. Sinus rhythm with tachycardia. ST segments are difficult to interpret because of a variable baseline that do not meet STEMI criteria. Given the patient's poor EKG a repeat EKG was obtained at 1553 which showed sinus tachycardia. ST segments are congruent. Not suggestive of ACS. A final third EKG was obtained at 1620 when the patient's troponin came back quite elevated. Repeat EKG continues to not show signs of ST elevation. No EKGs thus far meet STEMI criteria. I spoke with Dr. Mast at approximately 4:15 to 420 who reviewed the patient's chart and EKGs and agrees that this does not meet STEMI criteria. He recommends medical management at this point. The patient is on warfarin and thus we initiated aspirin and are waiting for a PT/INR to come back before initiating heparin. On reexamination the patient's work of breathing is improving. She has crackles in the lungs. X-ray reviewed by myself shows pulmonary edema bilaterally. Likely the patient is volume overloaded and acute heart failure. The patient had an episode of vomiting in the emergency department while on BiPAP. suction used and the mask was taken off. zofran given. I had a long risk-benefit discussion with the patient, her daughter and her son by phone about the risk and benefit of endotracheal intubation. The patient is quite ill and the patient's cardiac reserve is very low given the patient's elevated troponin and pulmonary edema. I'm concerned that the risk is too high for this patient at this time. Also using BiPAP there is risk with aspiration if she continues to vomit. At this point in time shared decision making was used the patient does not desire to be intubated at this time she understands the risk of aspiration as does her family and its sequela but is concerned about the risk of endotracheal intubation. I did have anesthesia come down to evaluate the patient for intubation (saw pt in ED). The patient refuses to be intubated. I explained the risks of aspiration, and disability. Patient and family demonstrated verbal understanding. I spoke with Dr. Ramirez who accepted the patient for admission. There is a ct chest abd pelvis ordered at this time that Dr. Ramirez and Dr. Huang (ED) will follow up on. Sign out was at 6pm. Review of Systems Review of Systems SEE ABOVE. Current Medications Current Medications Current Medications Medications (Trade) Dose Ordered Sig/Sravan Start Time Stop Time Status Last Admin Dose Admin Albuterol/ Ipratropium (Duoneb) 3 ml 1X ONCE 02/08/18 16:00 02/08/18 16:01 DC Aspirin (Children'S Aspirin) 324 mg 1X ONCE 02/08/18 16:30 02/08/18 16:31 DC 02/08/18 16:36 324 MG Furosemide (Lasix) 20 mg 1X ONCE 02/08/18 17:00 02/08/18 17:01 DC Heparin Sodium (Porcine) (Heparin Sodium) 1,800 unit PRN Q6HRS PRN 02/08/18 17:30 UNV Heparin Sodium/ Dextrose 500 ml @ 0 mls/hr CONT PRN 02/08/18 17:30 UNV Info (Anti-Coagulation Monitoring By Pharmacy) 1 each PRN DAILY PRN 02/08/18 17:30 Ondansetron HCl (Zofran) 4 mg STK-MED ONCE 02/08/18 16:51 02/08/18 16:52 DC Piperacillin Sod/ Tazobactam Sod (Zosyn Per Pharmacy) 1 each PRN DAILY PRN 02/08/18 16:15 UNV Piperacillin Sod/ Tazobactam Sod 3.375 gm/Sodium Chloride 50 ml @ 100 mls/hr 1X ONCE 02/08/18 16:30 02/08/18 16:59 DC 02/08/18 16:36 100 MLS/HR Vancomycin HCl (Vanco Per Pharmacy) 1 each PRN DAILY PRN 02/08/18 16:15 UNV Vancomycin HCl 1.75 gm/Sodium Chloride 500 ml @ 250 mls/hr 1X ONCE 02/08/18 17:00 02/08/18 18:59 02/08/18 16:36 250 MLS/HR Allergies Allergies Allergies Coded Allergies Type Severity Reaction Last Updated Verified NSAIDS (Non-Steroidal Anti-Inflamma Adverse Reaction Mild Diarrhea 09/20/17 Yes codeine Adverse Reaction Mild Nausea and Vomiting 09/20/17 Yes metronidazole Adverse Reaction Mild Nausea and Vomiting 09/20/17 Yes Physical Exam Physical Exam SEE ABOVE Constitutional: Well developed, well nourished, no acute distress, non-toxic appearance. [] HENT: Normocephalic, atraumatic, bilateral external ears normal, oropharynx moist, no oral exudates, nose normal. [] Eyes: PERRLA, EOMI, conjunctiva normal, no discharge. [] Neck: Normal range of motion, no tenderness, supple, no stridor. [] Cardiovascular:Heart rate regular rhythm, no murmur [] Lungs & Thorax: Bilateral breath sounds clear to auscultation [] Abdomen: Bowel sounds normal, soft, no tenderness, no masses, no pulsatile masses. [] Skin: Warm, dry, no erythema, no rash. [] Back: No tenderness, no CVA tenderness. [] Extremities: No tenderness, no cyanosis, no clubbing, ROM intact, no edema. [] Neurologic: Alert and oriented X 3, normal motor function, normal sensory function, no focal deficits noted. [] Psychologic: Affect normal, judgement normal, mood normal. [] Current Patient Data Vital Signs Vital Signs Date Time Temp Pulse Resp B/P (MAP) Pulse Ox O2 Delivery O2 Flow Rate FiO2 02/08/18 15:50 99 BiPAP/CPAP 02/08/18 15:42 102.6 153 40 190/100 (130) 102.6 Lab Values Laboratory Tests Test 02/08/18 15:44 02/08/18 16:40 White Blood Count 14.2 x10^3/uL (4.0-11.0) H Red Blood Count 4.32 x10^6/uL (3.50-5.40) Hemoglobin 13.2 g/dL (12.0-15.5) Hematocrit 39.1 % (36.0-47.0) Mean Corpuscular Volume 91 fL (79-100) Mean Corpuscular Hemoglobin 31 pg (25-35) Mean Corpuscular Hemoglobin Concent 34 g/dL (31-37) Red Cell Distribution Width 17.1 % (11.5-14.5) H Platelet Count 279 x10^3/uL (140-400) Neutrophils (%) (Auto) 79 % (31-73) H Lymphocytes (%) (Auto) 14 % (24-48) L Monocytes (%) (Auto) 7 % (0-9) Eosinophils (%) (Auto) 0 % (0-3) Basophils (%) (Auto) 1 % (0-3) Neutrophils # (Auto) 11.2 x10^3uL (1.8-7.7) H Lymphocytes # (Auto) 2.0 x10^3/uL (1.0-4.8) Monocytes # (Auto) 1.0 x10^3/uL (0.0-1.1) Eosinophils # (Auto) 0.0 x10^3/uL (0.0-0.7) Basophils # (Auto) 0.1 x10^3/uL (0.0-0.2) Prothrombin Time 16.8 SEC (11.7-14.0) H Prothrombin Time INR 1.4 (0.8-1.1) H PTT 37 SEC (24-38) Sodium Level 135 mmol/L (136-145) L Potassium Level 4.1 mmol/L (3.5-5.1) Chloride Level 97 mmol/L (98-107) L Carbon Dioxide Level 24 mmol/L (21-32) Anion Gap 14 (6-14) Blood Urea Nitrogen 17 mg/dL (7-20) Creatinine 1.4 mg/dL (0.6-1.0) H Estimated GFR (Cockcroft-Gault) 37.6 Glucose Level 185 mg/dL (70-99) H Calcium Level 9.1 mg/dL (8.5-10.1) Total Bilirubin 0.3 mg/dL (0.2-1.0) Direct Bilirubin 0.1 mg/dL (0.0-0.2) Aspartate Amino Transferase (AST) 86 U/L (15-37) H Alanine Aminotransferase (ALT) 23 U/L (14-59) Alkaline Phosphatase 70 U/L (46-116) Troponin I Quantitative 17.772 ng/mL (0.000-0.055) AZ-Awy-C-Type Natriuretic Peptide > 91818 pg/mL (0-124) H Total Protein 7.7 g/dL (6.4-8.2) Albumin 3.2 g/dL (3.4-5.0) L Lipase 46 U/L (73-393) L O2 Saturation 93 % (92-99) Arterial Blood pH 7.48 (7.35-7.45) H Arterial Blood pCO2 at Patient Temp 32 mmHg (35-46) L Arterial Blood pO2 at Patient Temp 67 mmHg (65-108) Arterial Blood HCO3 23 mmol/L (21-28) Arterial Blood Base Excess 0 mmol/L (-3-3) Oxyhemoglobin 91.6 % Methemoglobin 0.1 % (0.0-1.9) Carbon Monoxide, Quantitative 1.3 % (0.0-1.9) FiO2 50 Laboratory Tests 02/08/18 15:44 Laboratory Tests 02/08/18 15:44 EKG EKG [] Radiology/Procedures Radiology/Procedures [] Course & Med Decision Making Course & Med Decision Making Pertinent Labs and Imaging studies reviewed. (See chart for details) [] Dragon Disclaimer Dragon Disclaimer This electronic medical record was generated, in whole or in part, using a voice recognition dictation system. Departure Departure Impression: Primary Impression: Elevated troponin Additional Impressions: Tachycardia Shortness of breath Heart failure CHF (congestive heart failure) Respiratory failure Disposition: ADMITTED INPATIENT Condition: GUARDED Referrals: ELISABETH BEAVERS MD (PCP) Critical Care Time Critical care time spent was 45 minutes exclusive of procedures. Time was spent evaluating the patient, ordering the administration of medications, reevaluating the patient, discussing with the admitting provider and documenting. Problem Qualifiers RAFAT MIKE MD Feb 08, 2018 16:03
[2018-02-08 16:06] LABS: CALCIUM 9.1 mg/dL (8.5-10.1); CREATININE 1.4 mg/dL (0.6-1.0); GFR 37.6; POTASSIUM 4.1 mmol/L (3.5-5.1)
[2018-02-08 16:12] LABS: ALBUMIN 3.2 g/dL (3.4-5.0); DIRECT BILIRUBIN 0.1 mg/dL (0.0-0.2); TOTAL BILIRUBIN 0.3 mg/dL (0.2-1.0); TOTAL PROTEIN 7.7 g/dL (6.4-8.2)
[2018-02-08] MEDS ORDERED: PIP/TAZO PER PHARMACY MC PRN (16:15)
[2018-02-08] MEDS ORDERED: ASPIRIN CHEWABLE 81 MG TABLET. PO ONE (16:30)
[2018-02-08] MEDS ORDERED: PIPERACILLIN/TAZOBACTAM 3.375 GM in IV NORMAL SALINE 50ML 50 ML IV ONE (16:30)
[2018-02-08] MEDS ORDERED: FUROSEMIDE 20 MG/2 ML VIAL. IVP ONE ×2 (16:30→17:00)
--- NOTE | 2018-02-08 16:37 | RAD ---
Chest radiograph 02/08/2018 3:54 PM INDICATION: Dyspnea COMPARISON: September 12, 2017 TECHNIQUE: Portable upright frontal view of the chest is provided. FINDINGS: The cardiomediastinal silhouette is within normal limits. Chronic interstitial changes are present. Mild pulmonary vascular congestion. Interval improved appearance of a small right pleural effusion with trace residual right pleural effusion. Patchy density at the left lung base may represent atelectasis versus infiltrate. No pneumothorax. IMPRESSION: 1. Patchy density at the left lung base may represent atelectasis versus infiltrate. 2. Improved aeration of the right lower lobe with decrease in size of a right pleural effusion, now trace volume. 3. Mild pulmonary vascular congestion or chronic interstitial changes in the perihilar distribution. Electronically signed by: Charissa Freeman MD (02/08/2018 4:33 PM) [id number]
[2018-02-08 16:49] LABS: BASE EXCESS COOX 0 mmol/L (-3-3); HCO3 COOX 23 mmol/L (21-28); METHEMOGLOBIN 0.1 % (0.0-1.9); OXYHEMOGLOBIN 91.6 %; PCO2 COOX 32 mmHg (35-46); PO2 COOX 67 mmHg (65-108); SAT O2 COOX 93 % (92-99)
[2018-02-08] MEDS ORDERED: ONDANSETRON PF 4 MG/2 ML VIAL. ONE (16:51)
[2018-02-08] MEDS ORDERED: VANCOMYCIN 1.75 GM in IV NORMAL SALINE 500ML BAG 500 ML IV ONE (17:00)
[2018-02-08] MEDS ORDERED: ONDANSETRON PF 4 MG/2 ML VIAL. IV ONE (17:00)
[2018-02-08 17:07] LABS: PROTHROMBIN TIME PATIENT 16.8 SEC (11.7-14.0)
[2018-02-08] MEDS ORDERED: HEPARIN 25,000UTS/500ML PREMIX 500 ML IV PRN (17:30)
[2018-02-08] MEDS ORDERED: HEPARIN for IV BOLUS 10,000 UNIT/10 ML VIAL. IV PRN (17:30)
--- NOTE | 2018-02-08 17:31 | PDOC1 ---
History and Physical Date of Admission Date of Admission DATE: 02/08/18 TIME: 17:29 Identification/Chief Complaint Chief Complaint Shortness of breath Source Source: Chart review, Patient History of Present Illness History of Present Illness Mrs Yee is a 67-year-old female w/ PMHx COPD, PAD, paroxysmal afib on coumadin who is presenting to the emergency department today with acute hypoxic respiratory failure. On arrival she was placed on BiPAP which improved her work of breathing. She was quite tachycardic and with labored breathing. EKG initially obtained showed artifact but did not meet STEMI criteria, however a troponin 17. The patient had an episode of vomiting in the emergency department while on BiPAP. suction used and the mask was taken off. zofran given. A very elevated BNP at greater than 35,000 noted as well. Chest x-ray shows a patchy density in the left base and vascular congestion. D/w ER physician, she has refused intubation, though notes she is full code. Her additional significant history shows severe multi-region peripheral arterial disease and has been followed by Dr. Stockton. The patient has had bilateral carotid surgery, repair of abdominal aortic aneurysm and a femoral bypass. 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 She is seen on BIPAP and her work of breathing is improved compared to prior according to her and her daughter. She is amenable to ICU admission and her nausea improved with zofran, notes she has some lower back pain on ROS. Past Medical History Cardiovascular: AFIB, CHF, HTN, Other Pulmonary: Bronchitis, COPD CENTRAL NERVOUS SYSTEM: CVA Psych: Anxiety Rheumatologic: Fibromyalgia Family History Family History: Hypertension Social History ALCOHOL: social Current Medications Current Medications Current Medications Albuterol/ Ipratropium (Duoneb) 3 ml 1X ONCE NEB ; Start 02/08/18 at 16:00; Stop 02/08/18 at 16:01; Status DC Vancomycin HCl (Vanco Per Pharmacy) 1 each PRN DAILY PRN [facility] SEE COMMENTS; Start 02/08/18 at 16:15; Status UNV Piperacillin Sod/ Tazobactam Sod (Zosyn Per Pharmacy) 1 each PRN DAILY PRN [facility] SEE COMMENTS; Start 02/08/18 at 16:15; Status UNV Vancomycin HCl 1.75 gm/Sodium Chloride 500 ml @ 250 mls/hr 1X ONCE IV Last administered on 02/08/18at 16:36; Start 02/08/18 at 17:00; Stop 02/08/18 at 18 :59 Piperacillin Sod/ Tazobactam Sod 3.375 gm/Sodium Chloride 50 ml @ 100 mls/hr 1X ONCE IV Last administered on 02/08/18at 16:36; Start 02/08/18 at 16:30; Stop 02/08/18 at 16:59; Status DC Furosemide (Lasix) 20 mg 1X ONCE IVP Last administered on 02/08/18at 16:36; Start 02/08/18 at 16:30; Stop 02/08/18 at 16:31; Status DC Aspirin (Children'S Aspirin) 324 mg 1X ONCE PO Last administered on at 16:36; Start 02/08/18 at 16:30; Stop 02/08/18 at 16:31; Status DC Furosemide (Lasix) 20 mg 1X ONCE IVP ; Start 02/08/18 at 17:00; Stop at 17:01; Status DC Ondansetron HCl (Zofran) 4 mg 1X ONCE IV ; Start 02/08/18 at 17:00; Stop at 17:01; Status DC Ondansetron HCl (Zofran) 4 mg STK-MED ONCE .ROUTE ; Start 02/08/18 at 16:51; Stop 02/08/18 at 16:52; Status DC Heparin Sodium/ Dextrose 500 ml @ 0 mls/hr CONT PRN IV SEE I/O RECORD; Start 02/08/18 at 17:30; Status UNV Info (Anti-Coagulation Monitoring By Pharmacy) 1 each PRN DAILY PRN [facility] SEE COMMENTS; Start 02/08/18 at 17:30 Active Scripts Active Percocet 5-325 Mg Tablet (Oxycodone/Acetaminophen) 1 Each Tablet 1 Tab PO BID 3 Days Reported Zofran (Ondansetron Hcl) 4 Mg Tablet 1 Tab PO Q6HRS Milk Of Magnesia (Magnesium Hydroxide) 400 Mg/5 Ml Oral.susp 400 Mg PO Acetaminophen 500 Mg Tablet 1 Tab PO BID Clonidine Hcl 0.1 Mg Tablet 1 Tab PO QHS Tramadol Hcl 50 Mg Tablet 50 Mg PO DAILY PRN Hydralazine Hcl 20 Mg/1 Ml Vial 20 Mg IJ Gabapentin 300 Mg Capsule 300 Mg PO TID Acidophilus (Lactobacillus Acidophilus) 1 Each Capsule 1 Each PO Atorvastatin Calcium 10 Mg Tablet 1 Tab PO DAILY Vitamin C (Ascorbic Acid) 500 Mg Tablet.er 500 Mg PO Aspirin 325 Mg Tablet 1 Tab PO DAILY Colace (Docusate Sodium) 100 Mg Capsule 1 Cap PO BID Magnesium Oxide 400 Mg Tablet 1 Tab PO DAILY Multivitamins (Multivitamin) 1 Each Tablet 1 Tab PO DAILY NICODERM CQ 14mg (Nicotine) 1 Each Patch.td24 1 Patch TP DAILY Miralax (Polyethylene Glycol 3350) 17 Gm Powd.pack 1 Packet PO DAILY Albuterol Sulfate Neb Soln (Albuterol Sulfate) 0.63 Mg/3 Ml Vial.neb 1 Vial NEB QID Prednisone 20 Mg Tablet 1 Tab PO DAILY Seroquel (Quetiapine Fumarate) 25 Mg Tablet 1 Tab PO QHS Hydrochlorothiazide Tablet (Hydrochlorothiazide) 12.5 Mg Tablet 1 Tab PO QHS Lexapro (Escitalopram Oxalate) 20 Mg Tablet 1 Tab PO QHS Hydrocodone-Apap 10-325 (Hydrocodone Bit/Acetaminophen) 1 Each Tablet 1 Tab PO PRN Q4HRS Oxycontin (Oxycodone HCl) 10 Mg Tab.er.12h 10 Mg PO BID Allergies Allergies: Coded Allergies: NSAIDS (Non-Steroidal Anti-Inflamma (Verified Adverse Reaction, Mild, Diarrhea, 09/20/17) codeine (Verified Adverse Reaction, Mild, Nausea and Vomiting, 09/20/17) metronidazole (Verified Adverse Reaction, Mild, Nausea and Vomiting, ) ROS General: YES: Fatigue, Malaise; No: Chills, Night Sweats, Appetite, Other PSYCHOLOGICAL ROS: YES: Anxiety; No: Behavioral Disorder, Concentration difficultie, Decreased libido, Depression, Disorientation, Hallucinations, Hostility, Irritablity, Memory difficulties, Mood Swings, Obsessive thoughts, Physical abuse, Sexual abuse, Sleep disturbances, Suicidal ideation, Other Eyes: No Blurry vision, No Decreased vision, No Double vision, No Dry eyes, No Excessive tearing, No Eye Pain, No Itchy Eyes, No Loss of vision, No Photophobia , No Scotomata, No Uses contacts, No Uses glasses, No Other HEENT: No: Heacaches, Visual Changes, Hearing change, Nasal congestion, Nasal discharge, Oral lesions, Sinus pain, Sore Throat, Epistaxis, Sneezing, Snoring, Tinnitus, Vertigo, Vocal changes, Other ALLERGY AND IMMUNOLOGY: No: Hives, Insect Bite Sensitivity, Itchy/Watery Eyes, Nasal Congestion, Post Nasal Drip, Seasonal Allergies, Other Hematological and Lymphatic: YES: Blood Clots; No: Bleeding Problems, Blood Transfusions, Brusing, Night Sweats, Pallor, Swollen Lymph Nodes, Other ENDOCRINE: No: Breast Changes, Galactorrhea, Hair Pattern Changes, Hot Flashes , Malaise/lethargy, Mood Swings, Palpitations, Polydipsia/polyuria, Skin Changes , Temperature Intolerance, Unexpected Weight Changes, Other Breast: No New/Changing Breast Lumps, No Nipple changes, No Nipple discharge, No Other Respiratory: YES: Shortness of breath, SOB with excertion, Tachypnea, Wheezing ; No: Cough, Hemoptysis, Orthopnea, Pleuritic Pain, Sputum Changes, Stridor, Other Cardiovascular: No Chest Pain, No Palpitations, No Orthopnea, No Paroxysmal Noc. Dyspnea, No Edema, No Lt Headedness, No Other Gastrointestinal: Yes Nausea, Yes Vomiting; No Abdominal Pain, No Diarrhea, No Constipation, No Melena, No Hematochezia, No Other Genitourinary: No Dysuria, No Frequency, No Incontinence, No Hematuria, No Retention, No Discharge, No Urgency, No Pain, No Flank Pain, No Other, No , No , No , No , No , No , No Musculoskeletal: Yes Joint Pain, Yes Muscle Pain; No Gait Disturbance, No Joint Stiffness, No Joint Swelling, No Muscular Weakness, No Pain In:, No Swelling In:, No Other Neurological: No Behavorial Changes, No Bowel/Bladder ControlChng, No Confusion , No Dizziness, No Gait Disturbance, No Headaches, No Impaired Coord/balance, No Memory Loss, No Numbness/Tingling, No Seizures, No Speech Problems, No Tremors, No Visual Changes, No Weakness, No Other Skin: No Dry Skin, No Eczema, No Hair Changes, No Lumps, No Mole Changes, No Mottling, No Nail Changes, No Pruritus, No Rash, No Skin Lesion Changes, No Other, No Acne Physical Exam General: Alert, Oriented X3, Cooperative, severe distress HEENT: Atraumatic, PERRLA, EOMI, Mucous membr. moist/pink Lungs: Other (Forced ventilatory breath sounds on bipap) Abdomen: Normal bowel sounds, Soft, No tenderness, No hepatosplenomegaly, No masses Extremities: No clubbing, No cyanosis, No edema, Normal pulses, No tenderness/ swelling Skin: No rashes, No breakdown, No significant lesion Neuro: Normal speech, Strength at 5/5 X4 ext, Normal tone, Sensation intact, Cranial nerves 3-12 NL, Reflexes 2+ Psych/Mental Status: Mental status NL, Mood NL Vitals Vitals Vital Signs Date Time Temp Pulse Resp B/P (MAP) Pulse Ox O2 Delivery O2 Flow Rate FiO2 02/08/18 15:50 99 BiPAP/CPAP 02/08/18 15:42 102.6 153 40 190/100 (130) 102.6 Labs Labs Laboratory Tests Test 02/08/18 15:44 02/08/18 16:40 White Blood Count 14.2 x10^3/uL (4.0-11.0) Red Blood Count 4.32 x10^6/uL (3.50-5.40) Hemoglobin 13.2 g/dL (12.0-15.5) Hematocrit 39.1 % (36.0-47.0) Mean Corpuscular Volume 91 fL (79-100) Mean Corpuscular Hemoglobin 31 pg (25-35) Mean Corpuscular Hemoglobin Concent 34 g/dL (31-37) Red Cell Distribution Width 17.1 % (11.5-14.5) Platelet Count 279 x10^3/uL (140-400) Neutrophils (%) (Auto) 79 % (31-73) Lymphocytes (%) (Auto) 14 % (24-48) Monocytes (%) (Auto) 7 % (0-9) Eosinophils (%) (Auto) 0 % (0-3) Basophils (%) (Auto) 1 % (0-3) Neutrophils # (Auto) 11.2 x10^3uL (1.8-7.7) Lymphocytes # (Auto) 2.0 x10^3/uL (1.0-4.8) Monocytes # (Auto) 1.0 x10^3/uL (0.0-1.1) Eosinophils # (Auto) 0.0 x10^3/uL (0.0-0.7) Basophils # (Auto) 0.1 x10^3/uL (0.0-0.2) Prothrombin Time 16.8 SEC (11.7-14.0) Prothromb Time International Ratio 1.4 (0.8-1.1) Activated Partial Thromboplast Time 37 SEC (24-38) Sodium Level 135 mmol/L (136-145) Potassium Level 4.1 mmol/L (3.5-5.1) Chloride Level 97 mmol/L (98-107) Carbon Dioxide Level 24 mmol/L (21-32) Anion Gap 14 (6-14) Blood Urea Nitrogen 17 mg/dL (7-20) Creatinine 1.4 mg/dL (0.6-1.0) Estimated GFR (Cockcroft-Gault) 37.6 Glucose Level 185 mg/dL (70-99) Calcium Level 9.1 mg/dL (8.5-10.1) Total Bilirubin 0.3 mg/dL (0.2-1.0) Direct Bilirubin 0.1 mg/dL (0.0-0.2) Aspartate Amino Transf (AST/SGOT) 86 U/L (15-37) Alanine Aminotransferase (ALT/SGPT) 23 U/L (14-59) Alkaline Phosphatase 70 U/L (46-116) Troponin I Quantitative 17.772 ng/mL (0.000-0.055) OX-Iid-I-Type Natriuretic Peptide > 49489 pg/mL (0-124) Total Protein 7.7 g/dL (6.4-8.2) Albumin 3.2 g/dL (3.4-5.0) Lipase 46 U/L (73-393) O2 Saturation 93 % (92-99) Arterial Blood pH 7.48 (7.35-7.45) Arterial Blood pCO2 at Patient Temp 32 mmHg (35-46) Arterial Blood pO2 at Patient Temp 67 mmHg (65-108) Arterial Blood HCO3 23 mmol/L (21-28) Arterial Blood Base Excess 0 mmol/L (-3-3) Oxyhemoglobin 91.6 % Methemoglobin 0.1 % (0.0-1.9) Carbon Monoxide, Quantitative 1.3 % (0.0-1.9) FiO2 50 Laboratory Tests Test 02/08/18 15:44 02/08/18 16:40 White Blood Count 14.2 x10^3/uL (4.0-11.0) Red Blood Count 4.32 x10^6/uL (3.50-5.40) Hemoglobin 13.2 g/dL (12.0-15.5) Hematocrit 39.1 % (36.0-47.0) Mean Corpuscular Volume 91 fL (79-100) Mean Corpuscular Hemoglobin 31 pg (25-35) Mean Corpuscular Hemoglobin Concent 34 g/dL (31-37) Red Cell Distribution Width 17.1 % (11.5-14.5) Platelet Count 279 x10^3/uL (140-400) Neutrophils (%) (Auto) 79 % (31-73) Lymphocytes (%) (Auto) 14 % (24-48) Monocytes (%) (Auto) 7 % (0-9) Eosinophils (%) (Auto) 0 % (0-3) Basophils (%) (Auto) 1 % (0-3) Neutrophils # (Auto) 11.2 x10^3uL (1.8-7.7) Lymphocytes # (Auto) 2.0 x10^3/uL (1.0-4.8) Monocytes # (Auto) 1.0 x10^3/uL (0.0-1.1) Eosinophils # (Auto) 0.0 x10^3/uL (0.0-0.7) Basophils # (Auto) 0.1 x10^3/uL (0.0-0.2) Prothrombin Time 16.8 SEC (11.7-14.0) Prothromb Time International Ratio 1.4 (0.8-1.1) Activated Partial Thromboplast Time 37 SEC (24-38) Sodium Level 135 mmol/L (136-145) Potassium Level 4.1 mmol/L (3.5-5.1) Chloride Level 97 mmol/L (98-107) Carbon Dioxide Level 24 mmol/L (21-32) Anion Gap 14 (6-14) Blood Urea Nitrogen 17 mg/dL (7-20) Creatinine 1.4 mg/dL (0.6-1.0) Estimated GFR (Cockcroft-Gault) 37.6 Glucose Level 185 mg/dL (70-99) Calcium Level 9.1 mg/dL (8.5-10.1) Total Bilirubin 0.3 mg/dL (0.2-1.0) Direct Bilirubin 0.1 mg/dL (0.0-0.2) Aspartate Amino Transf (AST/SGOT) 86 U/L (15-37) Alanine Aminotransferase (ALT/SGPT) 23 U/L (14-59) Alkaline Phosphatase 70 U/L (46-116) Troponin I Quantitative 17.772 ng/mL (0.000-0.055) FW-Keu-U-Type Natriuretic Peptide > 17249 pg/mL (0-124) Total Protein 7.7 g/dL (6.4-8.2) Albumin 3.2 g/dL (3.4-5.0) Lipase 46 U/L (73-393) O2 Saturation 93 % (92-99) Arterial Blood pH 7.48 (7.35-7.45) Arterial Blood pCO2 at Patient Temp 32 mmHg (35-46) Arterial Blood pO2 at Patient Temp 67 mmHg (65-108) Arterial Blood HCO3 23 mmol/L (21-28) Arterial Blood Base Excess 0 mmol/L (-3-3) Oxyhemoglobin 91.6 % Methemoglobin 0.1 % (0.0-1.9) Carbon Monoxide, Quantitative 1.3 % (0.0-1.9) FiO2 50 VTE Prophylaxis Ordered VTE Prophylaxis Devices: Contraindicated VTE Pharmacological Prophylaxi: Yes Assessment/Plan Assessment/Plan A/P: Acute hypoxic respiratory failure - known h/o COPD. BIPAP and nebs helping. She has a fever and leukocytosis, may have underlying pneumonia or influenza, will treat broad spectrum, check rapid flu. pulmonary/critical care consultation Severe sepsis - with respiratory failure likely 2/2 pneumonia/bronchitis, fever 102.6F, leukocytosis, tachycardia, will not be able to give fluids per sepsis protocol due to her fluid overload, but needs broad spectrum early antibiotics. Acute diastolic heart failure - BNP of greater than 35,000. diuresis for pulmonary congestion PAD - with carotid, AAA, renovascular disease she definitely has CAD as well. Cont ASA, plavix NSTEMI - elevated troponin at 17. 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 Now in sinus rhythm. on coumadin, INR subtherapeutic, needs heparin gtt for NSTEMI anyway, will keep this. History of a previous CVA - now s/p bilateral CEA and treating afib, will keep on heparin, high intensity statin, ASA primary prevention FEN - NPO while on BIPAP PPX - heparin GTT CODE - FULL ICU for bipap, she is critically ill with severe sepsis of likely pulmonary etiology with active myocardial infarction likely occurring, will have a guarded prognosis. D/w her and daughter bedside in ED. MADAN DRAKE MD Feb 08, 2018 17:31
[2018-02-08] MEDS ORDERED: ONDANSETRON PF 4 MG/2 ML VIAL. IV PRN (18:00)
--- NOTE | 2018-02-08 18:23 | PDOC2 ---
CONSULT Date of Consult Date of Consult DATE: 02/08/18 TIME: 18:10 Reason for Consult Reason for Consult: Elevated troponin Referring Physician Referring Physician: Dr. Najera Identification/Chief Complaint Chief Complaint Shortness of breath Source Source: Chart review History of Present Illness Reason for Visit: The patient is a 67-year-old female who was brought to the emergency room for progressively increasing shortness of breath. She has a history of COPD and was initially treated for acute hypoxic respiratory failure. A mask and CPAP were used to help with the patient's oxygenation. On workup the patient's EKG showed a tachycardia but no significant ST elevations. Post treatment the patient has been feeling mildly improved. Lab testing has returned that shows an elevated troponin at 17 and a very elevated BNP at greater than 35,000. Chest x-ray shows a patchy density in the left base and vascular congestion. The patient after treatment is feeling somewhat better. Her main difficulty is severe shortness of breath. As outlined in the ER physician's note she has refused intubation. Her additional significant history shows severe multi-region peripheral arterial disease and has been followed by Dr. Stockton. The patient has had bilateral carotid surgery, repair of abdominal aortic aneurysm and a femoral bypass. She is followed by the vascular surgery service. She also has a history of paroxysmal atrial fibrillation and [place] [id number] shows normal left ventricular systolic function. 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 Past Medical History Cardiovascular: AFIB, CHF, HTN, Other (possible IVC thrombus) Pulmonary: Bronchitis, COPD CENTRAL NERVOUS SYSTEM: CVA Psych: Anxiety Rheumatologic: Fibromyalgia Renal/: Chronic renal insuff Past Surgical History Past Surgical History: Appendectomy, Other (carotid endarterectomy, peripheral bypass surgery, probable AAA repair) Family History Family History: Hypertension Social History Quit ALCOHOL: social Current Problem List Problem List Problems Medical Problems: (1) CHF (congestive heart failure) Status: Acute (2) Elevated troponin Status: Acute (3) Heart failure Status: Acute (4) Respiratory failure Status: Acute (5) Shortness of breath Status: Acute Current Medications Current Medications Current Medications Albuterol/ Ipratropium (Duoneb) 3 ml 1X ONCE NEB ; Start 02/08/18 at 16:00; Stop 02/08/18 at 16:01; Status DC Vancomycin HCl (Vanco Per Pharmacy) 1 each PRN DAILY PRN [facility] SEE COMMENTS; Start 02/08/18 at 16:15 Piperacillin Sod/ Tazobactam Sod (Zosyn Per Pharmacy) 1 each PRN DAILY PRN [facility] SEE COMMENTS; Start 02/08/18 at 16:15 Vancomycin HCl 1.75 gm/Sodium Chloride 500 ml @ 250 mls/hr 1X ONCE IV Last administered on 02/08/18at 16:36; Start 02/08/18 at 17:00; Stop 02/08/18 at 18 :59 Piperacillin Sod/ Tazobactam Sod 3.375 gm/Sodium Chloride 50 ml @ 100 mls/hr 1X ONCE IV Last administered on 02/08/18at 16:36; Start 02/08/18 at 16:30; Stop 02/08/18 at 16:59; Status DC Furosemide (Lasix) 20 mg 1X ONCE IVP Last administered on 02/08/18at 16:36; Start 02/08/18 at 16:30; Stop 02/08/18 at 16:31; Status DC Aspirin (Children'S Aspirin) 324 mg 1X ONCE PO Last administered on at 16:36; Start 02/08/18 at 16:30; Stop 02/08/18 at 16:31; Status DC Furosemide (Lasix) 20 mg 1X ONCE IVP Last administered on 02/08/18at 18:07; Start 02/08/18 at 17:00; Stop 02/08/18 at 17:01; Status DC Ondansetron HCl (Zofran) 4 mg 1X ONCE IV Last administered on 02/08/18at 17:00 ; Start 02/08/18 at 17:00; Stop 02/08/18 at 17:01; Status DC Ondansetron HCl (Zofran) 4 mg STK-MED ONCE .ROUTE ; Start 02/08/18 at 16:51; Stop 02/08/18 at 16:52; Status DC Heparin Sodium/ Dextrose 500 ml @ 0 mls/hr CONT PRN IV SEE I/O RECORD; Start 02/08/18 at 17:30; Status UNV Info (Anti-Coagulation Monitoring By Pharmacy) 1 each PRN DAILY PRN [facility] SEE COMMENTS; Start 02/08/18 at 17:30 Heparin Sodium/ Dextrose 500 ml @ 0 mls/hr CONT PRN IV SEE I/O RECORD; Start 02/08/18 at 17:30 Heparin Sodium (Porcine) (Heparin Sodium) 1,800 unit PRN Q6HRS PRN IV FOR UFH LEVEL LESS THAN 0.2; Start 02/08/18 at 17:30 Ondansetron HCl (Zofran) 4 mg 1X PRN PRN IV NAUSEA/VOMITING; Start 02/08/18 at 18:00 Piperacillin Sod/ Tazobactam Sod 3.375 gm/Sodium Chloride 50 ml @ 100 mls/hr Q6HRS IV ; Start 02/09/18 at 00:00 Active Scripts Active Percocet 5-325 Mg Tablet (Oxycodone/Acetaminophen) 1 Each Tablet 1 Tab PO BID 3 Days Reported Zofran (Ondansetron Hcl) 4 Mg Tablet 1 Tab PO Q6HRS Milk Of Magnesia (Magnesium Hydroxide) 400 Mg/5 Ml Oral.susp 400 Mg PO Acetaminophen 500 Mg Tablet 1 Tab PO BID Clonidine Hcl 0.1 Mg Tablet 1 Tab PO QHS Tramadol Hcl 50 Mg Tablet 50 Mg PO DAILY PRN Hydralazine Hcl 20 Mg/1 Ml Vial 20 Mg IJ Gabapentin 300 Mg Capsule 300 Mg PO TID Acidophilus (Lactobacillus Acidophilus) 1 Each Capsule 1 Each PO Atorvastatin Calcium 10 Mg Tablet 1 Tab PO DAILY Vitamin C (Ascorbic Acid) 500 Mg Tablet.er 500 Mg PO Aspirin 325 Mg Tablet 1 Tab PO DAILY Colace (Docusate Sodium) 100 Mg Capsule 1 Cap PO BID Magnesium Oxide 400 Mg Tablet 1 Tab PO DAILY Multivitamins (Multivitamin) 1 Each Tablet 1 Tab PO DAILY NICODERM CQ 14mg (Nicotine) 1 Each Patch.td24 1 Patch TP DAILY Miralax (Polyethylene Glycol 3350) 17 Gm Powd.pack 1 Packet PO DAILY Albuterol Sulfate Neb Soln (Albuterol Sulfate) 0.63 Mg/3 Ml Vial.neb 1 Vial NEB QID Prednisone 20 Mg Tablet 1 Tab PO DAILY Seroquel (Quetiapine Fumarate) 25 Mg Tablet 1 Tab PO QHS Hydrochlorothiazide Tablet (Hydrochlorothiazide) 12.5 Mg Tablet 1 Tab PO QHS Lexapro (Escitalopram Oxalate) 20 Mg Tablet 1 Tab PO QHS Hydrocodone-Apap 10-325 (Hydrocodone Bit/Acetaminophen) 1 Each Tablet 1 Tab PO PRN Q4HRS Oxycontin (Oxycodone HCl) 10 Mg Tab.er.12h 10 Mg PO BID Allergies Allergies: Coded Allergies: NSAIDS (Non-Steroidal Anti-Inflamma (Verified Adverse Reaction, Mild, Diarrhea, 09/20/17) codeine (Verified Adverse Reaction, Mild, Nausea and Vomiting, 09/20/17) metronidazole (Verified Adverse Reaction, Mild, Nausea and Vomiting, ) ROS General: YES: Fatigue Respiratory: YES: Shortness of breath Cardiovascular: yes Chest Pain Physical Exam General: severe distress HEENT: Atraumatic Lungs: Other (decreased breath sounds) Heart: Other (tachycardia) Abdomen: Normal bowel sounds Vitals VITALS Vital Signs Date Time Temp Pulse Resp B/P (MAP) Pulse Ox O2 Delivery O2 Flow Rate FiO2 02/08/18 17:47 99 BiPAP/CPAP 02/08/18 15:42 102.6 153 40 190/100 (130) 102.6 Labs Labs Laboratory Tests Test 02/08/18 15:44 02/08/18 16:40 02/08/18 17:10 White Blood Count 14.2 x10^3/uL (4.0-11.0) Red Blood Count 4.32 x10^6/uL (3.50-5.40) Hemoglobin 13.2 g/dL (12.0-15.5) Hematocrit 39.1 % (36.0-47.0) Mean Corpuscular Volume 91 fL (79-100) Mean Corpuscular Hemoglobin 31 pg (25-35) Mean Corpuscular Hemoglobin Concent 34 g/dL (31-37) Red Cell Distribution Width 17.1 % (11.5-14.5) Platelet Count 279 x10^3/uL (140-400) Neutrophils (%) (Auto) 79 % (31-73) Lymphocytes (%) (Auto) 14 % (24-48) Monocytes (%) (Auto) 7 % (0-9) Eosinophils (%) (Auto) 0 % (0-3) Basophils (%) (Auto) 1 % (0-3) Neutrophils # (Auto) 11.2 x10^3uL (1.8-7.7) Lymphocytes # (Auto) 2.0 x10^3/uL (1.0-4.8) Monocytes # (Auto) 1.0 x10^3/uL (0.0-1.1) Eosinophils # (Auto) 0.0 x10^3/uL (0.0-0.7) Basophils # (Auto) 0.1 x10^3/uL (0.0-0.2) Prothrombin Time 16.8 SEC (11.7-14.0) Prothromb Time International Ratio 1.4 (0.8-1.1) Activated Partial Thromboplast Time 37 SEC (24-38) Sodium Level 135 mmol/L (136-145) Potassium Level 4.1 mmol/L (3.5-5.1) Chloride Level 97 mmol/L (98-107) Carbon Dioxide Level 24 mmol/L (21-32) Anion Gap 14 (6-14) Blood Urea Nitrogen 17 mg/dL (7-20) Creatinine 1.4 mg/dL (0.6-1.0) Estimated GFR (Cockcroft-Gault) 37.6 Glucose Level 185 mg/dL (70-99) Lactic Acid Level 3.6 mmol/L (0.4-2.0) Calcium Level 9.1 mg/dL (8.5-10.1) Total Bilirubin 0.3 mg/dL (0.2-1.0) Direct Bilirubin 0.1 mg/dL (0.0-0.2) Aspartate Amino Transf (AST/SGOT) 86 U/L (15-37) Alanine Aminotransferase (ALT/SGPT) 23 U/L (14-59) Alkaline Phosphatase 70 U/L (46-116) Troponin I Quantitative 17.772 ng/mL (0.000-0.055) 18.859 ng/mL (0.000-0.055) JH-Nfw-H-Type Natriuretic Peptide > 58753 pg/mL (0-124) Total Protein 7.7 g/dL (6.4-8.2) Albumin 3.2 g/dL (3.4-5.0) Lipase 46 U/L (73-393) O2 Saturation 93 % (92-99) Arterial Blood pH 7.48 (7.35-7.45) Arterial Blood pCO2 at Patient Temp 32 mmHg (35-46) Arterial Blood pO2 at Patient Temp 67 mmHg (65-108) Arterial Blood HCO3 23 mmol/L (21-28) Arterial Blood Base Excess 0 mmol/L (-3-3) Oxyhemoglobin 91.6 % Methemoglobin 0.1 % (0.0-1.9) Carbon Monoxide, Quantitative 1.3 % (0.0-1.9) FiO2 50 Laboratory Tests Test 02/08/18 15:44 02/08/18 16:40 02/08/18 17:10 White Blood Count 14.2 x10^3/uL (4.0-11.0) Red Blood Count 4.32 x10^6/uL (3.50-5.40) Hemoglobin 13.2 g/dL (12.0-15.5) Hematocrit 39.1 % (36.0-47.0) Mean Corpuscular Volume 91 fL (79-100) Mean Corpuscular Hemoglobin 31 pg (25-35) Mean Corpuscular Hemoglobin Concent 34 g/dL (31-37) Red Cell Distribution Width 17.1 % (11.5-14.5) Platelet Count 279 x10^3/uL (140-400) Neutrophils (%) (Auto) 79 % (31-73) Lymphocytes (%) (Auto) 14 % (24-48) Monocytes (%) (Auto) 7 % (0-9) Eosinophils (%) (Auto) 0 % (0-3) Basophils (%) (Auto) 1 % (0-3) Neutrophils # (Auto) 11.2 x10^3uL (1.8-7.7) Lymphocytes # (Auto) 2.0 x10^3/uL (1.0-4.8) Monocytes # (Auto) 1.0 x10^3/uL (0.0-1.1) Eosinophils # (Auto) 0.0 x10^3/uL (0.0-0.7) Basophils # (Auto) 0.1 x10^3/uL (0.0-0.2) Prothrombin Time 16.8 SEC (11.7-14.0) Prothromb Time International Ratio 1.4 (0.8-1.1) Activated Partial Thromboplast Time 37 SEC (24-38) Sodium Level 135 mmol/L (136-145) Potassium Level 4.1 mmol/L (3.5-5.1) Chloride Level 97 mmol/L (98-107) Carbon Dioxide Level 24 mmol/L (21-32) Anion Gap 14 (6-14) Blood Urea Nitrogen 17 mg/dL (7-20) Creatinine 1.4 mg/dL (0.6-1.0) Estimated GFR (Cockcroft-Gault) 37.6 Glucose Level 185 mg/dL (70-99) Lactic Acid Level 3.6 mmol/L (0.4-2.0) Calcium Level 9.1 mg/dL (8.5-10.1) Total Bilirubin 0.3 mg/dL (0.2-1.0) Direct Bilirubin 0.1 mg/dL (0.0-0.2) Aspartate Amino Transf (AST/SGOT) 86 U/L (15-37) Alanine Aminotransferase (ALT/SGPT) 23 U/L (14-59) Alkaline Phosphatase 70 U/L (46-116) Troponin I Quantitative 17.772 ng/mL (0.000-0.055) 18.859 ng/mL (0.000-0.055) PG-Rru-W-Type Natriuretic Peptide > 83953 pg/mL (0-124) Total Protein 7.7 g/dL (6.4-8.2) Albumin 3.2 g/dL (3.4-5.0) Lipase 46 U/L (73-393) O2 Saturation 93 % (92-99) Arterial Blood pH 7.48 (7.35-7.45) Arterial Blood pCO2 at Patient Temp 32 mmHg (35-46) Arterial Blood pO2 at Patient Temp 67 mmHg (65-108) Arterial Blood HCO3 23 mmol/L (21-28) Arterial Blood Base Excess 0 mmol/L (-3-3) Oxyhemoglobin 91.6 % Methemoglobin 0.1 % (0.0-1.9) Carbon Monoxide, Quantitative 1.3 % (0.0-1.9) FiO2 50 Images Images Chest x-ray shows patchy density in the left base and vascular congestion. Assessment/Plan Assessment/Plan 1. Acute hypoxic respiratory failure. Patient is feeling mildly better with medications and CPAP. However she is critically ill. As per the ER physician's note after discussion with the patient and her family at this time she is refusing intubation. We'll continue other treatments. 2. Acute probable diastolic heart failure. BNP of greater than 35,000. We'll attempt mild diuresis based on the patient's clinical course. Echocardiogram in [place] of this year shows intact LV systolic function. 3. Severe multi-region peripheral vascular disease as above. We'll continue on present treatments at this time. INR pending. If low will consider heparin. 4. No acute ST elevation in EKG but elevated troponin at 17. Multivessel vascular disease as noted above. Probable non-ST elevated myocardial infarction with some demand ischemia. As noted above the patient is sitting up in severely short of breath. She refuses intubation at this time. From a cardiac viewpoint she is not a candidate for any acute interventions at this time. We'll continue on medical treatment as above. 5. History of paroxysmal atrial fibrillation. Now in sinus rhythm. We'll continue to monitor. 6. History of a previous CVA. Thank you for allowing us to participate in the care of your patient. ALEX RUDOLPH MD Feb 08, 2018 18:23
[2018-02-08 18:25] VITALS: BP 114/66
[2018-02-08] MEDS: HEPARIN 25,000UTS/500ML PREMIX 500 ML IV PRN (18:31)
[2018-02-08 20:00] VITALS: BP 137/83
[2018-02-08] MEDS: VANCOMYCIN PER PHARMACY MC PRN ×2 (20:34→20:37)
[2018-02-08 21:00] VITALS: BP 186/103
[2018-02-08 22:00] VITALS: BP 183/96
[2018-02-08] MEDS ORDERED: MAGNESIUM SULFATE 4GM 100 ML IV ONE (22:00)
[2018-02-08] MEDS: cloNIDine HCL 0.1 MG TABLET PO SCH ×2 (22:00→22:05)
[2018-02-08] MEDS: MORPHINE SULFATE 4 MG/ML VIAL. IV PRN (22:03)
[2018-02-08] MEDS: GABAPENTIN 300 MG CAPSULE. PO SCH (22:08)
[2018-02-08 23:00] VITALS: BP 147/97
[2018-02-08 23:03] LABS: INFLUENZA A PATIENT NEGATIVE (NEGATIVE); INFLUENZA B PATIENT NEGATIVE (NEGATIVE)
[2018-02-09] VITALS (26 sets, daily range): BP systolic 76–169; BP diastolic 47–116
[2018-02-09] MEDS: PIPERACILLIN/TAZOBACTAM 3.375 GM in IV NORMAL SALINE 50ML 50 ML IV SCH ×5 (00:16→23:54)
[2018-02-09] MEDS: LABETALOL 20 MG/4 ML DISP.SYRIN. IVP PRN ×2 (01:05→18:06)
[2018-02-09 05:38] LABS: HEMATOCRIT 34.1 % (36.0-47.0); HEMOGLOBIN 11.6 g/dL (12.0-15.5); RED BLOOD COUNT 3.79 x10^6/uL (3.50-5.40); RED CELL DISTRIBUTION WIDTH 16.4 % (11.5-14.5); WHITE BLOOD COUNT 8.2 x10^3/uL (4.0-11.0)
[2018-02-09 06:03] LABS: CREATININE 1.3 mg/dL (0.6-1.0)
--- NOTE | 2018-02-09 06:38 | PDOC ---
Provider Note Provider Note [id number] acute resp fail acute diastolic chf acute bronchitis vs pneumonia ae of copf see orders JAREK BLACKWELL MD Feb 09, 2018 06:38
[2018-02-09] MEDS ORDERED: ACETAMINOPHEN 325 MG SUPP.RECT. PR PRN (06:45)
[2018-02-09] MEDS ORDERED: SUCCINYLCHOLINE 200 MG/10 ML VIAL. ONE (07:00)
[2018-02-09] MEDS ORDERED: PROPOFOL 10 MG/ML (20ML) VIAL. IV ONE (07:00)
[2018-02-09] MEDS ORDERED: ePHEDrine PF IN SALINE 50 MG/5 ML DISP.SYRIN IV ONE (07:00)
[2018-02-09] MEDS ORDERED: PHENYLEPHRINE in 0.9% NACL PF 1 MG/10 ML SYRINGE. IV ONE (07:00)
[2018-02-09] MEDS: BUDESONIDE 0.5 MG/2 ML NEBU. NEB SCH ×2 (07:45→20:51)
[2018-02-09] MEDS: IPRATROPIUM BROMIDE 0.5 MG/2.5 ML NEBU. NEB SCH ×4 (07:46→20:51)
--- NOTE | 2018-02-09 07:53 | CONS ---
DATE OF CONSULTATION: 02/09/2018 I was asked to see this 67-year-old for acute hypoxemic respiratory failure. HISTORY OF PRESENT ILLNESS: The patient is currently on BiPAP and received Ativan, so she is not able to answer my questions. All of the information was obtained from chart and nursing staff. She was brought to the Emergency Room for chest pain and acute hypoxemic respiratory failure. Emergency Room physician felt that the patient needs intubation, but she refused. She was started on BiPAP. She is currently on BiPAP. She is confused. Her FiO2 is 40% with O2 saturation of 96%. Cardiology is consulted. It was felt she might have a non-ST elevation OH. PAST MEDICAL HISTORY: Paroxysmal atrial fibrillation, CHF, hypertension, COPD, history of CVA. ALLERGIES: NSAIDs, CODEINE, FLAGYL. MEDICATIONS: Currently, she is on vancomycin, Lipitor, Colace, aspirin, Zosyn, heparin drip, Neurontin, clonidine. SOCIAL HISTORY: History of [id number] smoking, continues to smoke per chart. FAMILY HISTORY: Hypertension per chart. REVIEW OF SYSTEMS: As mentioned as above. I have discussed the patient with RN, other systems otherwise negative. PHYSICAL EXAMINATION: VITAL SIGNS: She appears tachypneic. Her O2 saturation on BiPAP 20/8, rate of 20, 40% FiO2 is 96%. Respiratory rate 24, heart rate 120, blood pressure 149/91. HEENT: Normocephalic, atraumatic. Pupils equal, round, reactive to light. She has BiPAP mask on. NECK: Positive JVD. No lymphadenopathy or thyromegaly. CARDIOVASCULAR: Tachycardic. CHEST: On inspection, she appears tachypneic. LUNGS: There are bibasilar crackles, a few end-expiratory wheezing, dullness on the left base. ABDOMEN: Soft. Bowel sounds are good. There is no mass. EXTREMITIES: There is no edema. LYMPHATICS: There is no lymphadenopathy. NEUROLOGIC: Confused. SKIN: Chronic changes. LYMPHATICS: There is no lymphadenopathy. LABORATORY DATA: I reviewed the following lab data: Chest x-ray shows bilateral infiltrate with left lower lobe mild atelectasis. WBC 14.2, hemoglobin 13.2, platelet 279. Influenza A and B negative. ABG: pH 7.48, pCO2 32, pO2 67 on 50% FiO2. This was done at 1640 on 02/08/2018. Sodium 135, potassium 4.1, chloride 97, CO2 24, glucose 185, BUN 17, creatinine 1.3. Lactic acid 1.4. Troponin 30.2. BNP more than 35,000. IMPRESSION: 1. Acute hypoxemic respiratory failure secondary to acute diastolic congestive heart failure, non-ST elevation myocardial infarction, chronic obstructive pulmonary disease with mild exacerbation versus others. 2. Abnormal chest x-ray. 3. Acute diastolic congestive heart failure. 4. Chronic obstructive pulmonary disease with mild acute exacerbation. 5. Acute bronchitis versus pneumonia. 6. Smoker. 7. Leukocytosis. 8. History of cerebrovascular accident. PLAN AND RECOMMENDATIONS: 1. Titrate FiO2 to keep O2 saturation 92%. 2. Continue BiPAP until her respiratory status is more stable BiPAP setting was reviewed. Monitor very closely in ICU. 3. Start bronchodilator, Atrovent only, avoid albuterol. She is tachycardic. 4. Cardiology is consulted. Heparin per Cardiology. 5. I agree with antibiotic. 6. Follow up blood cultures. 7. Start inhaled corticosteroid, she may require systemic steroid. 8. Pepcid for stress ulcer prophylaxis. 9. Elevate head of bed. 10. She would need a CT of the chest when she is more stable. She has history of at least [id number] smoking. 11. The findings and recommendations were discussed with RN. Thank you very much for allowing me to participate in care of this very nice lady. JAREK BLACKWELL M.D. : BRONSON/regla JOB#: [id number] / [id number]
[2018-02-09] MEDS: GABAPENTIN 300 MG CAPSULE. PO SCH (08:17)
[2018-02-09] MEDS: VANCOMYCIN PER PHARMACY MC PRN (08:59)
[2018-02-09] MEDS ORDERED: traMADol 50 MG TABLET PO PRN (09:00)
[2018-02-09] MEDS: ANTI-COAG MONITOR BY PHARMACY. MC PRN (09:00)
[2018-02-09] MEDS ORDERED: LABETALOL 20 MG/4 ML DISP.SYRIN. IVP PRN (09:00)
[2018-02-09] MEDS ORDERED: ONDANSETRON ODT 4 MG TAB.RAPDIS. PO PRN (09:00)
[2018-02-09] MEDS ORDERED: ONDANSETRON PF 4 MG/2 ML VIAL. IV PRN (09:00)
[2018-02-09] MEDS ORDERED: DOCUSATE SODIUM 100 MG CAPSULE. PO SCH (09:00)
[2018-02-09] MEDS ORDERED: MAGNESIUM OXIDE PO SCH (09:00)
[2018-02-09] MEDS ORDERED: NON FORMULARY ITEM (Multivitamin (Multivitamins) 1 TAB) PO SCH (09:00)
[2018-02-09] MEDS: MAGNESIUM HYDROXIDE 2,400 MG/30 ML ORAL.SUSP. PO SCH (09:00)
[2018-02-09] MEDS ORDERED: ASPIRIN 325 MG TABLET PO SCH (09:00)
[2018-02-09] MEDS ORDERED: ACETAMINOPHEN PO SCH (09:00)
[2018-02-09] MEDS ORDERED: NON FORMULARY ITEM (Polyethylene Glycol 3350 (Miralax) 1 PACKET) PO SCH (09:00)
[2018-02-09] MEDS ORDERED: HYDROcodone/APAP 10/325 1 TAB TABLET PO PRN (09:00)
[2018-02-09] MEDS ORDERED: NON FORMULARY ITEM (Albuterol Sulfate (Albuterol Sulfate Neb Soln) 1 VIAL) NEB SCH (09:00)
[2018-02-09] MEDS ORDERED: oxyCODONE ER 10 MG TAB.ER.12H PO SCH (09:00)
[2018-02-09] MEDS ORDERED: oxyCODONE/APAP 5/325 1 TAB TABLET PO SCH (09:00)
[2018-02-09] MEDS: NICOTINE 14MG PATCH. TD SCH (09:33)
[2018-02-09] MEDS ORDERED: MULTIVITAMIN with MINERAL TABLET. PO SCH (10:00)
[2018-02-09] MEDS ORDERED: ACETAMINOPHEN 500 MG TABLET PO SCH (10:00)
[2018-02-09] MEDS ORDERED: POLYETHYLENE GLYCOL 3350 17 GM PACKET. PO SCH (10:00)
--- NOTE | 2018-02-09 10:19 | PDOC ---
PROGRESS NOTES Chief Complaint Chief Complaint Acute hypoxic respiratory failure on NIPPV - known h/o COPD. BIPAP Smoker - 1 ppday? Severe sepsis - with respiratory failure likely 2/2 pneumonia/bronchitis, fever 102.6F, leukocytosis, tachycardia, Acute diastolic heart failure - BNP of greater than 35,000. diuresis for pulmonary congestion PAD - with carotid, AAA, renovascular disease - cont asa plavix NSTEMI - elevated troponin at 17. Paroxysmal atrial fibrillation. Now in sinus rhythm. 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 Vitals Vitals Vital Signs Date Time Temp Pulse Resp B/P (MAP) Pulse Ox O2 Delivery O2 Flow Rate FiO2 02/09/18 09:00 103.3 103.3 02/09/18 08:02 Bi-pap 02/09/18 07:47 92 02/09/18 06:00 122 20 156/93 (114) Physical Exam General: Alert, Oriented X3, Cooperative, severe distress Heart: Other (tachycardia) Lungs: Clear Abdomen: Normal bowel sounds, Soft, No tenderness, No hepatosplenomegaly, No masses Extremities: No clubbing, No cyanosis, No edema, Normal pulses, No tenderness/ swelling Skin: No rashes, No breakdown, No significant lesion Labs LABS Laboratory Tests Test 02/08/18 15:44 02/08/18 16:40 02/08/18 17:10 02/08/18 21:30 White Blood Count 14.2 x10^3/uL (4.0-11.0) Red Blood Count 4.32 x10^6/uL (3.50-5.40) Hemoglobin 13.2 g/dL (12.0-15.5) Hematocrit 39.1 % (36.0-47.0) Mean Corpuscular Volume 91 fL (79-100) Mean Corpuscular Hemoglobin 31 pg (25-35) Mean Corpuscular Hemoglobin Concent 34 g/dL (31-37) Red Cell Distribution Width 17.1 % (11.5-14.5) Platelet Count 279 x10^3/uL (140-400) Neutrophils (%) (Auto) 79 % (31-73) Lymphocytes (%) (Auto) 14 % (24-48) Monocytes (%) (Auto) 7 % (0-9) Eosinophils (%) (Auto) 0 % (0-3) Basophils (%) (Auto) 1 % (0-3) Neutrophils # (Auto) 11.2 x10^3uL (1.8-7.7) Lymphocytes # (Auto) 2.0 x10^3/uL (1.0-4.8) Monocytes # (Auto) 1.0 x10^3/uL (0.0-1.1) Eosinophils # (Auto) 0.0 x10^3/uL (0.0-0.7) Basophils # (Auto) 0.1 x10^3/uL (0.0-0.2) Prothrombin Time 16.8 SEC (11.7-14.0) Prothromb Time International Ratio 1.4 (0.8-1.1) Activated Partial Thromboplast Time 37 SEC (24-38) Sodium Level 135 mmol/L (136-145) Potassium Level 4.1 mmol/L (3.5-5.1) Chloride Level 97 mmol/L (98-107) Carbon Dioxide Level 24 mmol/L (21-32) Anion Gap 14 (6-14) Blood Urea Nitrogen 17 mg/dL (7-20) Creatinine 1.4 mg/dL (0.6-1.0) Estimated GFR (Cockcroft-Gault) 37.6 Glucose Level 185 mg/dL (70-99) Lactic Acid Level 3.6 mmol/L (0.4-2.0) 1.4 mmol/L (0.4-2.0) Calcium Level 9.1 mg/dL (8.5-10.1) Total Bilirubin 0.3 mg/dL (0.2-1.0) Direct Bilirubin 0.1 mg/dL (0.0-0.2) Aspartate Amino Transf (AST/SGOT) 86 U/L (15-37) Alanine Aminotransferase (ALT/SGPT) 23 U/L (14-59) Alkaline Phosphatase 70 U/L (46-116) Troponin I Quantitative 17.772 ng/mL (0.000-0.055) 18.859 ng/mL (0.000-0.055) VJ-Vgw-A-Type Natriuretic Peptide > 72597 pg/mL (0-124) Total Protein 7.7 g/dL (6.4-8.2) Albumin 3.2 g/dL (3.4-5.0) Lipase 46 U/L (73-393) O2 Saturation 93 % (92-99) Arterial Blood pH 7.48 (7.35-7.45) Arterial Blood pCO2 at Patient Temp 32 mmHg (35-46) Arterial Blood pO2 at Patient Temp 67 mmHg (65-108) Arterial Blood HCO3 23 mmol/L (21-28) Arterial Blood Base Excess 0 mmol/L (-3-3) Oxyhemoglobin 91.6 % Methemoglobin 0.1 % (0.0-1.9) Carbon Monoxide, Quantitative 1.3 % (0.0-1.9) FiO2 50 Magnesium Level 1.5 mg/dL (1.8-2.4) Test 02/08/18 22:10 02/09/18 00:40 02/09/18 05:00 02/09/18 06:35 Influenza Type A Antigen Negative (NEGATIVE) Influenza Type B Antigen Negative (NEGATIVE) Heparin Anti-Xa Act, Unfractionated 0.77 IU/mL (0.30-0.70) 0.47 IU/mL (0.30-0.70) White Blood Count 8.2 x10^3/uL (4.0-11.0) Red Blood Count 3.79 x10^6/uL (3.50-5.40) Hemoglobin 11.6 g/dL (12.0-15.5) Hematocrit 34.1 % (36.0-47.0) Mean Corpuscular Volume 90 fL (79-100) Mean Corpuscular Hemoglobin 31 pg (25-35) Mean Corpuscular Hemoglobin Concent 34 g/dL (31-37) Red Cell Distribution Width 16.4 % (11.5-14.5) Platelet Count 203 x10^3/uL (140-400) Creatinine 1.3 mg/dL (0.6-1.0) Estimated GFR (Cockcroft-Gault) 41.0 Troponin I Quantitative 30.211 ng/mL (0.000-0.055) Review of Systems Review of Systems On BiPAP, hence limited ROS Assessment and Plan Assessmemt and Plan Problems Medical Problems: (1) CHF (congestive heart failure) Status: Acute (2) Elevated troponin Status: Acute (3) Heart failure Status: Acute (4) Respiratory failure Status: Acute (5) Shortness of breath Status: Acute Comment Review of Relevant I have reviewed the following items pat (where applicable) has been applied. Labs Laboratory Tests Test 02/08/18 15:44 02/08/18 16:40 02/08/18 17:10 02/08/18 21:30 White Blood Count 14.2 x10^3/uL (4.0-11.0) Red Blood Count 4.32 x10^6/uL (3.50-5.40) Hemoglobin 13.2 g/dL (12.0-15.5) Hematocrit 39.1 % (36.0-47.0) Mean Corpuscular Volume 91 fL (79-100) Mean Corpuscular Hemoglobin 31 pg (25-35) Mean Corpuscular Hemoglobin Concent 34 g/dL (31-37) Red Cell Distribution Width 17.1 % (11.5-14.5) Platelet Count 279 x10^3/uL (140-400) Neutrophils (%) (Auto) 79 % (31-73) Lymphocytes (%) (Auto) 14 % (24-48) Monocytes (%) (Auto) 7 % (0-9) Eosinophils (%) (Auto) 0 % (0-3) Basophils (%) (Auto) 1 % (0-3) Neutrophils # (Auto) 11.2 x10^3uL (1.8-7.7) Lymphocytes # (Auto) 2.0 x10^3/uL (1.0-4.8) Monocytes # (Auto) 1.0 x10^3/uL (0.0-1.1) Eosinophils # (Auto) 0.0 x10^3/uL (0.0-0.7) Basophils # (Auto) 0.1 x10^3/uL (0.0-0.2) Prothrombin Time 16.8 SEC (11.7-14.0) Prothromb Time International Ratio 1.4 (0.8-1.1) Activated Partial Thromboplast Time 37 SEC (24-38) Sodium Level 135 mmol/L (136-145) Potassium Level 4.1 mmol/L (3.5-5.1) Chloride Level 97 mmol/L (98-107) Carbon Dioxide Level 24 mmol/L (21-32) Anion Gap 14 (6-14) Blood Urea Nitrogen 17 mg/dL (7-20) Creatinine 1.4 mg/dL (0.6-1.0) Estimated GFR (Cockcroft-Gault) 37.6 Glucose Level 185 mg/dL (70-99) Lactic Acid Level 3.6 mmol/L (0.4-2.0) 1.4 mmol/L (0.4-2.0) Calcium Level 9.1 mg/dL (8.5-10.1) Total Bilirubin 0.3 mg/dL (0.2-1.0) Direct Bilirubin 0.1 mg/dL (0.0-0.2) Aspartate Amino Transf (AST/SGOT) 86 U/L (15-37) Alanine Aminotransferase (ALT/SGPT) 23 U/L (14-59) Alkaline Phosphatase 70 U/L (46-116) Troponin I Quantitative 17.772 ng/mL (0.000-0.055) 18.859 ng/mL (0.000-0.055) LD-Uom-B-Type Natriuretic Peptide > 19748 pg/mL (0-124) Total Protein 7.7 g/dL (6.4-8.2) Albumin 3.2 g/dL (3.4-5.0) Lipase 46 U/L (73-393) O2 Saturation 93 % (92-99) Arterial Blood pH 7.48 (7.35-7.45) Arterial Blood pCO2 at Patient Temp 32 mmHg (35-46) Arterial Blood pO2 at Patient Temp 67 mmHg (65-108) Arterial Blood HCO3 23 mmol/L (21-28) Arterial Blood Base Excess 0 mmol/L (-3-3) Oxyhemoglobin 91.6 % Methemoglobin 0.1 % (0.0-1.9) Carbon Monoxide, Quantitative 1.3 % (0.0-1.9) FiO2 50 Magnesium Level 1.5 mg/dL (1.8-2.4) Test 02/08/18 22:10 02/09/18 00:40 02/09/18 05:00 02/09/18 06:35 Influenza Type A Antigen Negative (NEGATIVE) Influenza Type B Antigen Negative (NEGATIVE) Heparin Anti-Xa Act, Unfractionated 0.77 IU/mL (0.30-0.70) 0.47 IU/mL (0.30-0.70) White Blood Count 8.2 x10^3/uL (4.0-11.0) Red Blood Count 3.79 x10^6/uL (3.50-5.40) Hemoglobin 11.6 g/dL (12.0-15.5) Hematocrit 34.1 % (36.0-47.0) Mean Corpuscular Volume 90 fL (79-100) Mean Corpuscular Hemoglobin 31 pg (25-35) Mean Corpuscular Hemoglobin Concent 34 g/dL (31-37) Red Cell Distribution Width 16.4 % (11.5-14.5) Platelet Count 203 x10^3/uL (140-400) Creatinine 1.3 mg/dL (0.6-1.0) Estimated GFR (Cockcroft-Gault) 41.0 Troponin I Quantitative 30.211 ng/mL (0.000-0.055) Laboratory Tests Test 02/08/18 15:44 02/08/18 16:40 02/08/18 17:10 02/08/18 21:30 White Blood Count 14.2 x10^3/uL (4.0-11.0) Red Blood Count 4.32 x10^6/uL (3.50-5.40) Hemoglobin 13.2 g/dL (12.0-15.5) Hematocrit 39.1 % (36.0-47.0) Mean Corpuscular Volume 91 fL (79-100) Mean Corpuscular Hemoglobin 31 pg (25-35) Mean Corpuscular Hemoglobin Concent 34 g/dL (31-37) Red Cell Distribution Width 17.1 % (11.5-14.5) Platelet Count 279 x10^3/uL (140-400) Neutrophils (%) (Auto) 79 % (31-73) Lymphocytes (%) (Auto) 14 % (24-48) Monocytes (%) (Auto) 7 % (0-9) Eosinophils (%) (Auto) 0 % (0-3) Basophils (%) (Auto) 1 % (0-3) Neutrophils # (Auto) 11.2 x10^3uL (1.8-7.7) Lymphocytes # (Auto) 2.0 x10^3/uL (1.0-4.8) Monocytes # (Auto) 1.0 x10^3/uL (0.0-1.1) Eosinophils # (Auto) 0.0 x10^3/uL (0.0-0.7) Basophils # (Auto) 0.1 x10^3/uL (0.0-0.2) Prothrombin Time 16.8 SEC (11.7-14.0) Prothromb Time International Ratio 1.4 (0.8-1.1) Activated Partial Thromboplast Time 37 SEC (24-38) Sodium Level 135 mmol/L (136-145) Potassium Level 4.1 mmol/L (3.5-5.1) Chloride Level 97 mmol/L (98-107) Carbon Dioxide Level 24 mmol/L (21-32) Anion Gap 14 (6-14) Blood Urea Nitrogen 17 mg/dL (7-20) Creatinine 1.4 mg/dL (0.6-1.0) Estimated GFR (Cockcroft-Gault) 37.6 Glucose Level 185 mg/dL (70-99) Lactic Acid Level 3.6 mmol/L (0.4-2.0) 1.4 mmol/L (0.4-2.0) Calcium Level 9.1 mg/dL (8.5-10.1) Total Bilirubin 0.3 mg/dL (0.2-1.0) Direct Bilirubin 0.1 mg/dL (0.0-0.2) Aspartate Amino Transf (AST/SGOT) 86 U/L (15-37) Alanine Aminotransferase (ALT/SGPT) 23 U/L (14-59) Alkaline Phosphatase 70 U/L (46-116) Troponin I Quantitative 17.772 ng/mL (0.000-0.055) 18.859 ng/mL (0.000-0.055) EO-Wgq-M-Type Natriuretic Peptide > 70953 pg/mL (0-124) Total Protein 7.7 g/dL (6.4-8.2) Albumin 3.2 g/dL (3.4-5.0) Lipase 46 U/L (73-393) O2 Saturation 93 % (92-99) Arterial Blood pH 7.48 (7.35-7.45) Arterial Blood pCO2 at Patient Temp 32 mmHg (35-46) Arterial Blood pO2 at Patient Temp 67 mmHg (65-108) Arterial Blood HCO3 23 mmol/L (21-28) Arterial Blood Base Excess 0 mmol/L (-3-3) Oxyhemoglobin 91.6 % Methemoglobin 0.1 % (0.0-1.9) Carbon Monoxide, Quantitative 1.3 % (0.0-1.9) FiO2 50 Magnesium Level 1.5 mg/dL (1.8-2.4) Test 02/08/18 22:10 02/09/18 00:40 02/09/18 05:00 02/09/18 06:35 Influenza Type A Antigen Negative (NEGATIVE) Influenza Type B Antigen Negative (NEGATIVE) Heparin Anti-Xa Act, Unfractionated 0.77 IU/mL (0.30-0.70) 0.47 IU/mL (0.30-0.70) White Blood Count 8.2 x10^3/uL (4.0-11.0) Red Blood Count 3.79 x10^6/uL (3.50-5.40) Hemoglobin 11.6 g/dL (12.0-15.5) Hematocrit 34.1 % (36.0-47.0) Mean Corpuscular Volume 90 fL (79-100) Mean Corpuscular Hemoglobin 31 pg (25-35) Mean Corpuscular Hemoglobin Concent 34 g/dL (31-37) Red Cell Distribution Width 16.4 % (11.5-14.5) Platelet Count 203 x10^3/uL (140-400) Creatinine 1.3 mg/dL (0.6-1.0) Estimated GFR (Cockcroft-Gault) 41.0 Troponin I Quantitative 30.211 ng/mL (0.000-0.055) Medications Current Medications Albuterol/ Ipratropium (Duoneb) 3 ml 1X ONCE NEB Last administered on at 17:14; Start 02/08/18 at 16:00; Stop 02/08/18 at 16:01; Status DC Vancomycin HCl (Vanco Per Pharmacy) 1 each PRN DAILY PRN MC SEE COMMENTS Last administered on 02/09/18at 08:59; Start 02/08/18 at 16:15 Piperacillin Sod/ Tazobactam Sod (Zosyn Per Pharmacy) 1 each PRN DAILY PRN MC SEE COMMENTS; Start 02/08/18 at 16:15 Vancomycin HCl 1.75 gm/Sodium Chloride 500 ml @ 250 mls/hr 1X ONCE IV Last administered on 02/08/18at 16:36; Start 02/08/18 at 17:00; Stop 02/08/18 at 18 :59; Status DC Piperacillin Sod/ Tazobactam Sod 3.375 gm/Sodium Chloride 50 ml @ 100 mls/hr 1X ONCE IV Last administered on 02/08/18at 16:36; Start 02/08/18 at 16:30; Stop 02/08/18 at 16:59; Status DC Furosemide (Lasix) 20 mg 1X ONCE IVP Last administered on 02/08/18at 16:36; Start 02/08/18 at 16:30; Stop 02/08/18 at 16:31; Status DC Aspirin (Children'S Aspirin) 324 mg 1X ONCE PO Last administered on at 16:36; Start 02/08/18 at 16:30; Stop 02/08/18 at 16:31; Status DC Furosemide (Lasix) 20 mg 1X ONCE IVP Last administered on 02/08/18at 18:07; Start 02/08/18 at 17:00; Stop 02/08/18 at 17:01; Status DC Ondansetron HCl (Zofran) 4 mg 1X ONCE IV Last administered on 02/08/18at 17:00 ; Start 02/08/18 at 17:00; Stop 02/08/18 at 17:01; Status DC Ondansetron HCl (Zofran) 4 mg STK-MED ONCE .ROUTE ; Start 02/08/18 at 16:51; Stop 02/08/18 at 16:52; Status DC Heparin Sodium/ Dextrose 500 ml @ 0 mls/hr CONT PRN IV SEE I/O RECORD; Start 02/08/18 at 17:30; Status UNV Info (Anti-Coagulation Monitoring By Pharmacy) 1 each PRN DAILY PRN MC SEE COMMENTS Last administered on 02/09/18at 09:00; Start 02/08/18 at 17:30 Heparin Sodium/ Dextrose 500 ml @ 0 mls/hr CONT PRN IV SEE I/O RECORD Last administered on 02/08/18at 18:31; Start 02/08/18 at 17:30 Heparin Sodium (Porcine) (Heparin Sodium) 1,800 unit PRN Q6HRS PRN IV FOR UFH LEVEL LESS THAN 0.2 Last administered on 02/08/18at 20:10; Start 02/08/18 at 17 :30 Ondansetron HCl (Zofran) 4 mg 1X PRN PRN IV NAUSEA/VOMITING; Start 02/08/18 at 18:00; Stop 02/09/18 at 09:06; Status DC Piperacillin Sod/ Tazobactam Sod 3.375 gm/Sodium Chloride 50 ml @ 100 mls/hr Q6HRS IV Last administered on 02/09/18at 06:22; Start 02/09/18 at 00:00 Vancomycin HCl 1 gm/Sodium Chloride 250 ml @ 250 mls/hr Q24H IV ; Start at 16:30 Vancomycin HCl (Vancomycin Trough Level) 1 each 1X ONCE MC ; Start 02/10/18 at 16:00; Stop 02/10/18 at 16:01 Magnesium Sulfate/ Dextrose 100 ml @ 25 mls/hr 1X ONCE IV Last administered on 02/08/18at 22:03; Start 02/08/18 at 22:00; Stop 02/09/18 at 01:59; Status DC Aspirin (Radha Aspirin) 325 mg DAILY PO ; Start 02/09/18 at 09:00 Atorvastatin Calcium (Lipitor) 10 mg HS PO ; Start 02/09/18 at 21:00 Clonidine HCl (Catapres) 0.1 mg QHS PO Last administered on 02/08/18at 22:05; Start 02/08/18 at 22:00 Docusate Sodium (Colace) 100 mg BID PO ; Start 02/09/18 at 09:00 Gabapentin (Neurontin) 300 mg TID PO Last administered on 02/08/18at 22:08; Start 02/08/18 at 22:20 Labetalol HCl (Normodyne Iv Push) 10 mg PRN Q2HR PRN IVP HYPERTENSION, SEE COMMENTS Last administered on 02/09/18at 01:05; Start 02/08/18 at 21:30 Lorazepam (Ativan) 1 mg PRN Q4HRS PRN IV ANXIETY / AGITATION Last administered on 02/09/18at 01:49; Start 02/08/18 at 21:30 Morphine Sulfate (Morphine Sulfate) 4 mg PRN Q4HRS PRN IV PAIN Last administered on 02/08/18at 22:03; Start 02/08/18 at 21:30 Acetaminophen (Tylenol Supp) 325 mg PRN Q6HRS PRN [place] MILD PAIN / TEMP Last administered on 02/09/18at 09:30; Start 02/09/18 at 06:45 Ipratropium [place] (Atrovent) 0.5 mg RTQID NEB Last administered on at 07:46; Start 02/09/18 at 08:00 Budesonide (Pulmicort) 0.5 mg RTBID NEB Last administered on 02/09/18at 07:45; Start 02/09/18 at 08:00 Famotidine (Pepcid Vial) 20 mg QHS IVP ; Start 02/09/18 at 21:00 Acetaminophen (Tylenol) 500 mg PRN Q6HRS PRN PO FEVER/KUO; Start 02/09/18 at 09 :00 Ondansetron HCl (Zofran) 4 mg PRN Q6HRS PRN IV NAUSEA/VOMITING; Start at 09:00 Ondansetron HCl (Zofran Odt) 4 mg PRN Q6HRS PRN PO NAUSEA/VOMITING; Start at 09:00 Acetaminophen/ Hydrocodone Bitart (Lortab 10/325) 1 tab PRN Q4HRS PRN PO MODERATE PAIN; Start 02/09/18 at 09:00 Magnesium Hydroxide (Milk Of Magnesia) 400 mg DAILY PO ; Start 02/09/18 at 09: 00 Oxycodone HCl (OxyCONTIN) 10 mg BID PO ; Start 02/09/18 at 09:00 Oxycodone/ Acetaminophen (Percocet 5/325) 1 tab BID PO ; Start 02/09/18 at 09: 00 Tramadol HCl (Ultram) 50 mg PRN DAILY PRN PO MILD PAIN; Start 02/09/18 at 09: 00 Non-Formulary Medication (Acetaminophen ) 1 tab BID PO ; Start 02/09/18 at 09: 00; Stop 02/09/18 at 09:12; Status DC Non-Formulary Medication (Albuterol Sulfate (Albuterol Sulfate Neb Soln)) 1 vial QID NEB ; Start 02/09/18 at 09:00; Stop 02/09/18 at 09:22; Status DC Citalopram Hydrobromide (CeleXA) 40 mg QHS PO ; Start 02/09/18 at 21:00 Hydrochlorothiazide (Microzide) 12.5 mg QHS PO ; Start 02/09/18 at 21:00 Non-Formulary Medication (Magnesium Oxide ) 1 tab DAILY PO ; Start 02/09/18 at 09:00; Stop 02/09/18 at 09:14; Status DC Non-Formulary Medication (Multivitamin (Multivitamins)) 1 tab DAILY PO ; Start 02/09/18 at 09:00; Stop 02/09/18 at 09:14; Status DC Nicotine (Nicoderm Cq 14mg) 1 patch DAILY TD Last administered on 02/09/18at 09 :33; Start 02/09/18 at 10:00 Ondansetron HCl (Zofran Odt) 4 mg Q6HRS PO ; Start 02/09/18 at 12:00 Non-Formulary Medication (Polyethylene Glycol 3350 (Miralax)) 1 packet DAILY PO ; Start 02/09/18 at 09:00; Stop 02/09/18 at 09:17; Status DC Quetiapine Fumarate (SEROquel) 25 mg QHS PO ; Start 02/09/18 at 21:00 Labetalol HCl (Normodyne Iv Push) 10 mg PRN Q2HR PRN IVP HYPERTENSION, SEE COMMENTS; Start 02/09/18 at 09:00; Stop 02/09/18 at 09:06; Status DC Acetaminophen (Tylenol) 500 mg BID PO ; Start 02/09/18 at 10:00 Magnesium Oxide (Magnesium Oxide) 400 mg DAILY PO ; Start 02/09/18 at 10:00 Multivitamins (Thera M Plus) 1 tab DAILY PO ; Start 02/09/18 at 10:00 Polyethylene Glycol (miraLAX PACKET) 17 gm DAILY PO ; Start 02/09/18 at 10:00 Albuterol Sulfate (Ventolin Neb Soln) 2.5 mg RTQID NEB ; Start 02/09/18 at 12: 00 Active Scripts Active Percocet 5-325 Mg Tablet (Oxycodone/Acetaminophen) 1 Each Tablet 1 Tab PO BID 3 Days Reported Zofran (Ondansetron Hcl) 4 Mg Tablet 1 Tab PO Q6HRS Milk Of Magnesia (Magnesium Hydroxide) 400 Mg/5 Ml Oral.susp 400 Mg PO Acetaminophen 500 Mg Tablet 1 Tab PO BID Clonidine Hcl 0.1 Mg Tablet 1 Tab PO QHS Tramadol Hcl 50 Mg Tablet 50 Mg PO DAILY PRN Hydralazine Hcl 20 Mg/1 Ml Vial 20 Mg IJ Gabapentin (Gabapentin) 300 Mg Capsule 300 Mg PO TID Acidophilus (Lactobacillus Acidophilus) 1 Each Capsule 1 Each PO Atorvastatin Calcium 10 Mg Tablet 1 Tab PO DAILY Vitamin C (Ascorbic Acid) 500 Mg Tablet.er 500 Mg PO Aspirin 325 Mg Tablet 1 Tab PO DAILY Colace (Docusate Sodium) 100 Mg Capsule 1 Cap PO BID Magnesium Oxide 400 Mg Tablet 1 Tab PO DAILY Multivitamins (Multivitamin) 1 Each Tablet 1 Tab PO DAILY NICODERM CQ 14mg (Nicotine) 1 Each Patch.td24 1 Patch TP DAILY Miralax (Polyethylene Glycol 3350) 17 Gm Powd.pack 1 Packet PO DAILY Albuterol Sulfate Neb Soln (Albuterol Sulfate) 0.63 Mg/3 Ml Vial.neb 1 Vial NEB QID Prednisone 20 Mg Tablet 1 Tab PO DAILY Seroquel (Quetiapine Fumarate) 25 Mg Tablet 1 Tab PO QHS Hydrochlorothiazide Tablet (Hydrochlorothiazide) 12.5 Mg Tablet 1 Tab PO QHS Lexapro (Escitalopram Oxalate) 20 Mg Tablet 1 Tab PO QHS Hydrocodone-Apap 10-325 (Hydrocodone Bit/Acetaminophen) 1 Each Tablet 1 Tab PO PRN Q4HRS Oxycontin (Oxycodone HCl) 10 Mg Tab.er.12h 10 Mg PO BID Vitals/I & O Vital Sign - Last 24 Hours 02/08/18 02/08/18 02/08/18 02/08/18 15:42 15:48 15:50 16:03 Temp 102.6 102.6 Pulse 153 142 136 Resp 40 B/P (MAP) 190/100 (130) 171/84 (113) 153/85 (107) Pulse Ox 93 100 99 95 O2 Delivery BiPAP/CPAP BiPAP/CPAP BiPAP/CPAP BiPAP/CPAP 02/08/18 02/08/18 02/08/18 02/08/18 16:18 16:33 16:48 17:03 Pulse 130 124 120 112 B/P (MAP) 124/83 (97) 125/69 (87) 177/95 (122) 115/69 (84) Pulse Ox 96 98 97 98 O2 Delivery BiPAP/CPAP BiPAP/CPAP BiPAP/CPAP BiPAP/CPAP 02/08/18 02/08/18 02/08/18 02/08/18 17:25 17:47 18:25 20:00 Temp 101.0 101.0 Pulse 112 110 Resp 22 B/P (MAP) 106/70 (82) 114/66 (82) Pulse Ox 99 99 95 O2 Delivery BiPAP/CPAP BiPAP/CPAP BiPAP/CPAP Bi-pap 02/08/18 02/08/18 02/08/18 02/08/18 20:00 20:04 21:00 22:00 Temp 101.3 101.3 Pulse 108 112 114 Resp 22 22 22 B/P (MAP) 137/83 (101) 186/103 (130) 183/96 (125) Pulse Ox 100 100 100 100 O2 Delivery BiPAP/CPAP BiPAP/CPAP BiPAP/CPAP BiPAP/CPAP 02/08/18 02/08/18 02/08/18 02/08/18 22:03 22:05 22:23 23:00 Pulse 113 114 Resp 22 20 18 B/P (MAP) 183/96 147/97 (114) Pulse Ox 100 100 100 O2 Delivery BiPAP/CPAP BiPAP/CPAP BiPAP/CPAP 02/08/18 02/08/18 02/08/18 02/09/18 23:16 23:36 23:59 00:00 Pulse 120 Resp 16 B/P (MAP) 154/107 (123) Pulse Ox 100 100 97 O2 Delivery BiPAP/CPAP BiPAP/CPAP Bi-pap BiPAP/CPAP 02/09/18 02/09/18 02/09/18 02/09/18 01:00 01:05 01:45 02:00 Temp 101.5 101.5 Pulse 120 123 102 Resp 18 16 B/P (MAP) 158/88 (111) 158/88 145/89 (107) Pulse Ox 97 100 98 O2 Delivery BiPAP/CPAP BiPAP/CPAP BiPAP/CPAP 02/09/18 02/09/18 02/09/18 02/09/18 03:00 03:01 04:00 04:00 Pulse 114 118 Resp 16 20 B/P (MAP) 149/84 (105) 147/91 (109) Pulse Ox 94 94 92 O2 Delivery BiPAP/CPAP BiPAP/CPAP Bi-pap BiPAP/CPAP 02/09/18 02/09/18 02/09/18 02/09/18 05:00 05:45 06:00 07:47 Temp 103.0 103.0 Pulse 118 122 Resp 18 20 B/P (MAP) 153/93 (113) 156/93 (114) Pulse Ox 92 89 93 92 O2 Delivery BiPAP/CPAP BiPAP/CPAP BiPAP/CPAP BiPAP/CPAP 02/09/18 02/09/18 08:02 09:00 Temp 103.3 103.3 O2 Delivery Bi-pap Intake and Output 02/08/18 02/08/18 02/09/18 15:00 23:00 07:00 Intake Total 291 ml Output Total 1075 ml 660 ml Balance -1075 ml -369 ml CAROLINA MOORE MD Feb 09, 2018 10:19
--- NOTE | 2018-02-09 10:59 | PDOC ---
Infectious Disease Note Vital Sign Vital Signs Vital Signs Date Time Temp Pulse Resp B/P (MAP) Pulse Ox O2 Delivery O2 Flow Rate FiO2 02/09/18 09:00 103.3 103.3 02/09/18 08:02 Bi-pap 02/09/18 07:47 92 02/09/18 06:00 122 20 156/93 (114) Labs Lab Laboratory Tests Test 02/08/18 15:44 02/08/18 16:40 02/08/18 17:10 02/08/18 21:30 White Blood Count 14.2 x10^3/uL (4.0-11.0) Red Blood Count 4.32 x10^6/uL (3.50-5.40) Hemoglobin 13.2 g/dL (12.0-15.5) Hematocrit 39.1 % (36.0-47.0) Mean Corpuscular Volume 91 fL (79-100) Mean Corpuscular Hemoglobin 31 pg (25-35) Mean Corpuscular Hemoglobin Concent 34 g/dL (31-37) Red Cell Distribution Width 17.1 % (11.5-14.5) Platelet Count 279 x10^3/uL (140-400) Neutrophils (%) (Auto) 79 % (31-73) Lymphocytes (%) (Auto) 14 % (24-48) Monocytes (%) (Auto) 7 % (0-9) Eosinophils (%) (Auto) 0 % (0-3) Basophils (%) (Auto) 1 % (0-3) Neutrophils # (Auto) 11.2 x10^3uL (1.8-7.7) Lymphocytes # (Auto) 2.0 x10^3/uL (1.0-4.8) Monocytes # (Auto) 1.0 x10^3/uL (0.0-1.1) Eosinophils # (Auto) 0.0 x10^3/uL (0.0-0.7) Basophils # (Auto) 0.1 x10^3/uL (0.0-0.2) Prothrombin Time 16.8 SEC (11.7-14.0) Prothromb Time International Ratio 1.4 (0.8-1.1) Activated Partial Thromboplast Time 37 SEC (24-38) Sodium Level 135 mmol/L (136-145) Potassium Level 4.1 mmol/L (3.5-5.1) Chloride Level 97 mmol/L (98-107) Carbon Dioxide Level 24 mmol/L (21-32) Anion Gap 14 (6-14) Blood Urea Nitrogen 17 mg/dL (7-20) Creatinine 1.4 mg/dL (0.6-1.0) Estimated GFR (Cockcroft-Gault) 37.6 Glucose Level 185 mg/dL (70-99) Lactic Acid Level 3.6 mmol/L (0.4-2.0) 1.4 mmol/L (0.4-2.0) Calcium Level 9.1 mg/dL (8.5-10.1) Total Bilirubin 0.3 mg/dL (0.2-1.0) Direct Bilirubin 0.1 mg/dL (0.0-0.2) Aspartate Amino Transf (AST/SGOT) 86 U/L (15-37) Alanine Aminotransferase (ALT/SGPT) 23 U/L (14-59) Alkaline Phosphatase 70 U/L (46-116) Troponin I Quantitative 17.772 ng/mL (0.000-0.055) 18.859 ng/mL (0.000-0.055) MF-Dzw-A-Type Natriuretic Peptide > 63897 pg/mL (0-124) Total Protein 7.7 g/dL (6.4-8.2) Albumin 3.2 g/dL (3.4-5.0) Lipase 46 U/L (73-393) O2 Saturation 93 % (92-99) Arterial Blood pH 7.48 (7.35-7.45) Arterial Blood pCO2 at Patient Temp 32 mmHg (35-46) Arterial Blood pO2 at Patient Temp 67 mmHg (65-108) Arterial Blood HCO3 23 mmol/L (21-28) Arterial Blood Base Excess 0 mmol/L (-3-3) Oxyhemoglobin 91.6 % Methemoglobin 0.1 % (0.0-1.9) Carbon Monoxide, Quantitative 1.3 % (0.0-1.9) FiO2 50 Magnesium Level 1.5 mg/dL (1.8-2.4) Test 02/08/18 22:10 02/09/18 00:40 02/09/18 05:00 12/15/18 06:35 Influenza Type A Antigen Negative (NEGATIVE) Influenza Type B Antigen Negative (NEGATIVE) Heparin Anti-Xa Act, Unfractionated 0.77 IU/mL (0.30-0.70) 0.47 IU/mL (0.30-0.70) White Blood Count 8.2 x10^3/uL (4.0-11.0) Red Blood Count 3.79 x10^6/uL (3.50-5.40) Hemoglobin 11.6 g/dL (12.0-15.5) Hematocrit 34.1 % (36.0-47.0) Mean Corpuscular Volume 90 fL (79-100) Mean Corpuscular Hemoglobin 31 pg (25-35) Mean Corpuscular Hemoglobin Concent 34 g/dL (31-37) Red Cell Distribution Width 16.4 % (11.5-14.5) Platelet Count 203 x10^3/uL (140-400) Creatinine 1.3 mg/dL (0.6-1.0) Estimated GFR (Cockcroft-Gault) 41.0 Troponin I Quantitative 30.211 ng/mL (0.000-0.055) Objective Assessment Sepsis w/ lactic acidosis, POA Acute respiratory failure, Likely aspirated, refused intubation, currently on BiPAP Flu screen negative Fever ANGELICA Allergy Flagyl NSTEMI Acute diastolic HF PAF PVD h/o seizures H/O CVA h/o C. diff w/ fecal transplant Plan Plan of Care Blood cultures x 2 vanc and Zosyn Monitor labs/temp and renal function closely f/u cultures Supportive care D/w RN Critically ill Thank you [phone] Pt seen and examined. Chart reviewed Labs and radiology reviewed Agree with above ANGELICA creat 1.4,monitor renal func closely will wean soon DELON TYLER APRN Feb 09, 2018 10:59 RAEGAN DAVALOS MD Feb 09, 2018 13:22
--- NOTE | 2018-02-09 11:52 | PDOC ---
PROGRESS NOTES Subjective Subjective Patient seen and examined She is less short of breath today. Objective Objective Vital Signs Date Time Temp Pulse Resp B/P (MAP) Pulse Ox O2 Delivery O2 Flow Rate FiO2 02/09/18 11:23 93 BiPAP/CPAP 02/09/18 11:00 108 24 128/78 (95) 02/09/18 10:47 99.8 99.8 Intake and Output 02/09/18 07:00 Intake Total 291 ml Output Total 1735 ml Balance -1444 ml IV Total 291 ml Output Urine Total 1735 ml Physical Exam Abdomen: Normal bowel sounds Heart: Other (regular rhythm with a rate of 108) General: mild distress Lungs: Other (decreased breath sounds) Assessment Assessment Problems Medical Problems: (1) CHF (congestive heart failure) Status: Acute (2) Elevated troponin Status: Acute (3) Heart failure Status: Acute (4) Respiratory failure Status: Acute (5) Shortness of breath Status: Acute 1. Acute hypoxic respiratory failure. Patient has refused intubation. She has improved overnight. Would continue present treatment. 2. Acute probable diastolic heart failure. BNP of greater than 35,000. We'll attempt mild diuresis based on the patient's clinical course. Echocardiogram in August of this year shows intact LV systolic function. We will check an ECHO for an update on LV function. 3. Severe multi-region peripheral vascular disease as above. We'll continue on present treatments at this time. On heparin. 4. Non-ST elevated myocardial infarction with some demand ischemia. Improved today. Continue present treatment. Recheck ECHO as above. Further testing based on her clinical course. 5. History of paroxysmal atrial fibrillation. Now in sinus rhythm. We'll continue to monitor. 6. History of a previous CVA. Comment Review of Relevant I have reviewed the following items pat (where applicable) has been applied. Labs Laboratory Tests Test 02/08/18 15:44 02/08/18 16:40 02/08/18 17:10 02/08/18 21:30 White Blood Count 14.2 x10^3/uL (4.0-11.0) Red Blood Count 4.32 x10^6/uL (3.50-5.40) Hemoglobin 13.2 g/dL (12.0-15.5) Hematocrit 39.1 % (36.0-47.0) Mean Corpuscular Volume 91 fL (79-100) Mean Corpuscular Hemoglobin 31 pg (25-35) Mean Corpuscular Hemoglobin Concent 34 g/dL (31-37) Red Cell Distribution Width 17.1 % (11.5-14.5) Platelet Count 279 x10^3/uL (140-400) Neutrophils (%) (Auto) 79 % (31-73) Lymphocytes (%) (Auto) 14 % (24-48) Monocytes (%) (Auto) 7 % (0-9) Eosinophils (%) (Auto) 0 % (0-3) Basophils (%) (Auto) 1 % (0-3) Neutrophils # (Auto) 11.2 x10^3uL (1.8-7.7) Lymphocytes # (Auto) 2.0 x10^3/uL (1.0-4.8) Monocytes # (Auto) 1.0 x10^3/uL (0.0-1.1) Eosinophils # (Auto) 0.0 x10^3/uL (0.0-0.7) Basophils # (Auto) 0.1 x10^3/uL (0.0-0.2) Prothrombin Time 16.8 SEC (11.7-14.0) Prothromb Time International Ratio 1.4 (0.8-1.1) Activated Partial Thromboplast Time 37 SEC (24-38) Sodium Level 135 mmol/L (136-145) Potassium Level 4.1 mmol/L (3.5-5.1) Chloride Level 97 mmol/L (98-107) Carbon Dioxide Level 24 mmol/L (21-32) Anion Gap 14 (6-14) Blood Urea Nitrogen 17 mg/dL (7-20) Creatinine 1.4 mg/dL (0.6-1.0) Estimated GFR (Cockcroft-Gault) 37.6 Glucose Level 185 mg/dL (70-99) Lactic Acid Level 3.6 mmol/L (0.4-2.0) 1.4 mmol/L (0.4-2.0) Calcium Level 9.1 mg/dL (8.5-10.1) Total Bilirubin 0.3 mg/dL (0.2-1.0) Direct Bilirubin 0.1 mg/dL (0.0-0.2) Aspartate Amino Transf (AST/SGOT) 86 U/L (15-37) Alanine Aminotransferase (ALT/SGPT) 23 U/L (14-59) Alkaline Phosphatase 70 U/L (46-116) Troponin I Quantitative 17.772 ng/mL (0.000-0.055) 18.859 ng/mL (0.000-0.055) WM-Wvm-W-Type Natriuretic Peptide > 31215 pg/mL (0-124) Total Protein 7.7 g/dL (6.4-8.2) Albumin 3.2 g/dL (3.4-5.0) Lipase 46 U/L (73-393) O2 Saturation 93 % (92-99) Arterial Blood pH 7.48 (7.35-7.45) Arterial Blood pCO2 at Patient Temp 32 mmHg (35-46) Arterial Blood pO2 at Patient Temp 67 mmHg (65-108) Arterial Blood HCO3 23 mmol/L (21-28) Arterial Blood Base Excess 0 mmol/L (-3-3) Oxyhemoglobin 91.6 % Methemoglobin 0.1 % (0.0-1.9) Carbon Monoxide, Quantitative 1.3 % (0.0-1.9) FiO2 50 Magnesium Level 1.5 mg/dL (1.8-2.4) Test 02/08/18 22:10 02/09/18 00:40 02/09/18 05:00 02/09/18 06:35 Influenza Type A Antigen Negative (NEGATIVE) Influenza Type B Antigen Negative (NEGATIVE) Heparin Anti-Xa Act, Unfractionated 0.77 IU/mL (0.30-0.70) 0.47 IU/mL (0.30-0.70) White Blood Count 8.2 x10^3/uL (4.0-11.0) Red Blood Count 3.79 x10^6/uL (3.50-5.40) Hemoglobin 11.6 g/dL (12.0-15.5) Hematocrit 34.1 % (36.0-47.0) Mean Corpuscular Volume 90 fL (79-100) Mean Corpuscular Hemoglobin 31 pg (25-35) Mean Corpuscular Hemoglobin Concent 34 g/dL (31-37) Red Cell Distribution Width 16.4 % (11.5-14.5) Platelet Count 203 x10^3/uL (140-400) Creatinine 1.3 mg/dL (0.6-1.0) Estimated GFR (Cockcroft-Gault) 41.0 Troponin I Quantitative 30.211 ng/mL (0.000-0.055) Laboratory Tests Test 02/08/18 15:44 02/08/18 16:40 02/08/18 17:10 02/08/18 21:30 White Blood Count 14.2 x10^3/uL (4.0-11.0) Red Blood Count 4.32 x10^6/uL (3.50-5.40) Hemoglobin 13.2 g/dL (12.0-15.5) Hematocrit 39.1 % (36.0-47.0) Mean Corpuscular Volume 91 fL (79-100) Mean Corpuscular Hemoglobin 31 pg (25-35) Mean Corpuscular Hemoglobin Concent 34 g/dL (31-37) Red Cell Distribution Width 17.1 % (11.5-14.5) Platelet Count 279 x10^3/uL (140-400) Neutrophils (%) (Auto) 79 % (31-73) Lymphocytes (%) (Auto) 14 % (24-48) Monocytes (%) (Auto) 7 % (0-9) Eosinophils (%) (Auto) 0 % (0-3) Basophils (%) (Auto) 1 % (0-3) Neutrophils # (Auto) 11.2 x10^3uL (1.8-7.7) Lymphocytes # (Auto) 2.0 x10^3/uL (1.0-4.8) Monocytes # (Auto) 1.0 x10^3/uL (0.0-1.1) Eosinophils # (Auto) 0.0 x10^3/uL (0.0-0.7) Basophils # (Auto) 0.1 x10^3/uL (0.0-0.2) Prothrombin Time 16.8 SEC (11.7-14.0) Prothromb Time International Ratio 1.4 (0.8-1.1) Activated Partial Thromboplast Time 37 SEC (24-38) Sodium Level 135 mmol/L (136-145) Potassium Level 4.1 mmol/L (3.5-5.1) Chloride Level 97 mmol/L (98-107) Carbon Dioxide Level 24 mmol/L (21-32) Anion Gap 14 (6-14) Blood Urea Nitrogen 17 mg/dL (7-20) Creatinine 1.4 mg/dL (0.6-1.0) Estimated GFR (Cockcroft-Gault) 37.6 Glucose Level 185 mg/dL (70-99) Lactic Acid Level 3.6 mmol/L (0.4-2.0) 1.4 mmol/L (0.4-2.0) Calcium Level 9.1 mg/dL (8.5-10.1) Total Bilirubin 0.3 mg/dL (0.2-1.0) Direct Bilirubin 0.1 mg/dL (0.0-0.2) Aspartate Amino Transf (AST/SGOT) 86 U/L (15-37) Alanine Aminotransferase (ALT/SGPT) 23 U/L (14-59) Alkaline Phosphatase 70 U/L (46-116) Troponin I Quantitative 17.772 ng/mL (0.000-0.055) 18.859 ng/mL (0.000-0.055) LF-Zba-H-Type Natriuretic Peptide > 30408 pg/mL (0-124) Total Protein 7.7 g/dL (6.4-8.2) Albumin 3.2 g/dL (3.4-5.0) Lipase 46 U/L (73-393) O2 Saturation 93 % (92-99) Arterial Blood pH 7.48 (7.35-7.45) Arterial Blood pCO2 at Patient Temp 32 mmHg (35-46) Arterial Blood pO2 at Patient Temp 67 mmHg (65-108) Arterial Blood HCO3 23 mmol/L (21-28) Arterial Blood Base Excess 0 mmol/L (-3-3) Oxyhemoglobin 91.6 % Methemoglobin 0.1 % (0.0-1.9) Carbon Monoxide, Quantitative 1.3 % (0.0-1.9) FiO2 50 Magnesium Level 1.5 mg/dL (1.8-2.4) Test 02/08/18 22:10 02/09/18 00:40 02/09/18 05:00 02/09/18 06:35 Influenza Type A Antigen Negative (NEGATIVE) Influenza Type B Antigen Negative (NEGATIVE) Heparin Anti-Xa Act, Unfractionated 0.77 IU/mL (0.30-0.70) 0.47 IU/mL (0.30-0.70) White Blood Count 8.2 x10^3/uL (4.0-11.0) Red Blood Count 3.79 x10^6/uL (3.50-5.40) Hemoglobin 11.6 g/dL (12.0-15.5) Hematocrit 34.1 % (36.0-47.0) Mean Corpuscular Volume 90 fL (79-100) Mean Corpuscular Hemoglobin 31 pg (25-35) Mean Corpuscular Hemoglobin Concent 34 g/dL (31-37) Red Cell Distribution Width 16.4 % (11.5-14.5) Platelet Count 203 x10^3/uL (140-400) Creatinine 1.3 mg/dL (0.6-1.0) Estimated GFR (Cockcroft-Gault) 41.0 Troponin I Quantitative 30.211 ng/mL (0.000-0.055) Medications Current Medications Albuterol/ Ipratropium (Duoneb) 3 ml 1X ONCE NEB Last administered on at 17:14; Start 02/08/18 at 16:00; Stop 02/08/18 at 16:01; Status DC Vancomycin HCl (Vanco Per Pharmacy) 1 each PRN DAILY PRN MC SEE COMMENTS Last administered on 02/09/18at 08:59; Start 02/08/18 at 16:15 Piperacillin Sod/ Tazobactam Sod (Zosyn Per Pharmacy) 1 each PRN DAILY PRN MC SEE COMMENTS; Start 02/08/18 at 16:15 Vancomycin HCl 1.75 gm/Sodium Chloride 500 ml @ 250 mls/hr 1X ONCE IV Last administered on 02/08/18at 16:36; Start 02/08/18 at 17:00; Stop 02/08/18 at 18 :59; Status DC Piperacillin Sod/ Tazobactam Sod 3.375 gm/Sodium Chloride 50 ml @ 100 mls/hr 1X ONCE IV Last administered on 02/08/18at 16:36; Start 02/08/18 at 16:30; Stop 02/08/18 at 16:59; Status DC Furosemide (Lasix) 20 mg 1X ONCE IVP Last administered on 02/08/18at 16:36; Start 02/08/18 at 16:30; Stop 02/08/18 at 16:31; Status DC Aspirin (Children'S Aspirin) 324 mg 1X ONCE PO Last administered on at 16:36; Start 02/08/18 at 16:30; Stop 02/08/18 at 16:31; Status DC Furosemide (Lasix) 20 mg 1X ONCE IVP Last administered on 02/08/18at 18:07; Start 02/08/18 at 17:00; Stop 02/08/18 at 17:01; Status DC Ondansetron HCl (Zofran) 4 mg 1X ONCE IV Last administered on 02/08/18at 17:00 ; Start 02/08/18 at 17:00; Stop 02/08/18 at 17:01; Status DC Ondansetron HCl (Zofran) 4 mg STK-MED ONCE .ROUTE ; Start 02/08/18 at 16:51; Stop 02/08/18 at 16:52; Status DC Heparin Sodium/ Dextrose 500 ml @ 0 mls/hr CONT PRN IV SEE I/O RECORD; Start 02/08/18 at 17:30; Status UNV Info (Anti-Coagulation Monitoring By Pharmacy) 1 each PRN DAILY PRN MC SEE COMMENTS Last administered on 02/09/18at 09:00; Start 02/08/18 at 17:30 Heparin Sodium/ Dextrose 500 ml @ 0 mls/hr CONT PRN IV SEE I/O RECORD Last administered on 02/08/18at 18:31; Start 02/08/18 at 17:30 Heparin Sodium (Porcine) (Heparin Sodium) 1,800 unit PRN Q6HRS PRN IV FOR UFH LEVEL LESS THAN 0.2 Last administered on 02/08/18at 20:10; Start 02/08/18 at 17 :30 Ondansetron HCl (Zofran) 4 mg 1X PRN PRN IV NAUSEA/VOMITING; Start 02/08/18 at 18:00; Stop 02/09/18 at 09:06; Status DC Piperacillin Sod/ Tazobactam Sod 3.375 gm/Sodium Chloride 50 ml @ 100 mls/hr Q6HRS IV Last administered on 02/09/18at 06:22; Start 02/09/18 at 00:00 Vancomycin HCl 1 gm/Sodium Chloride 250 ml @ 250 mls/hr Q24H IV ; Start at 16:30 Vancomycin HCl (Vancomycin Trough Level) 1 each 1X ONCE MC ; Start 02/10/18 at 16:00; Stop 02/10/18 at 16:01 Magnesium Sulfate/ Dextrose 100 ml @ 25 mls/hr 1X ONCE IV Last administered on 02/08/18at 22:03; Start 02/08/18 at 22:00; Stop 02/09/18 at 01:59; Status DC Aspirin (Radha Aspirin) 325 mg DAILY PO ; Start 02/09/18 at 09:00; Stop at 10:16; Status DC Atorvastatin Calcium (Lipitor) 10 mg HS PO ; Start 02/09/18 at 21:00; Stop at 21:00; Status DC Clonidine HCl (Catapres) 0.1 mg QHS PO Last administered on 02/08/18at 22:05; Start 02/08/18 at 22:00; Stop 02/09/18 at 10:16; Status DC Docusate Sodium (Colace) 100 mg BID PO ; Start 02/09/18 at 09:00; Stop at 10:16; Status DC Gabapentin (Neurontin) 300 mg TID PO Last administered on 02/08/18at 22:08; Start 02/08/18 at 22:20; Stop 02/09/18 at 10:16; Status DC Labetalol HCl (Normodyne Iv Push) 10 mg PRN Q2HR PRN IVP HYPERTENSION, SEE COMMENTS Last administered on 02/09/18at 01:05; Start 02/08/18 at 21:30 Lorazepam (Ativan) 1 mg PRN Q4HRS PRN IV ANXIETY / AGITATION Last administered on 02/09/18at 01:49; Start 02/08/18 at 21:30 Morphine Sulfate (Morphine Sulfate) 4 mg PRN Q4HRS PRN IV PAIN Last administered on 02/08/18at 22:03; Start 02/08/18 at 21:30 Acetaminophen (Tylenol Supp) 325 mg PRN Q6HRS PRN MS MILD PAIN / TEMP Last administered on 02/09/18at 09:30; Start 02/09/18 at 06:45 Ipratropium Jasper (Atrovent) 0.5 mg RTQID NEB Last administered on at 11:23; Start 02/09/18 at 08:00 Budesonide (Pulmicort) 0.5 mg RTBID NEB Last administered on 02/09/18at 07:45; Start 02/09/18 at 08:00 Famotidine (Pepcid Vial) 20 mg QHS IVP ; Start 02/09/18 at 21:00 Acetaminophen (Tylenol) 500 mg PRN Q6HRS PRN PO FEVER/KUO; Start 02/09/18 at 09 :00 Ondansetron HCl (Zofran) 4 mg PRN Q6HRS PRN IV NAUSEA/VOMITING; Start at 09:00 Ondansetron HCl (Zofran Odt) 4 mg PRN Q6HRS PRN PO NAUSEA/VOMITING; Start at 09:00 Acetaminophen/ Hydrocodone Bitart (Lortab 10/325) 1 tab PRN Q4HRS PRN PO MODERATE PAIN; Start 02/09/18 at 09:00 Magnesium Hydroxide (Milk Of Magnesia) 400 mg DAILY PO ; Start 02/09/18 at 09: 00 Oxycodone HCl (OxyCONTIN) 10 mg BID PO ; Start 02/09/18 at 09:00; Stop at 10:16; Status DC Oxycodone/ Acetaminophen (Percocet 5/325) 1 tab BID PO ; Start 02/09/18 at 09: 00; Stop 02/09/18 at 10:16; Status DC Tramadol HCl (Ultram) 50 mg PRN DAILY PRN PO MILD PAIN; Start 02/09/18 at 09: 00 Non-Formulary Medication (Acetaminophen ) 1 tab BID PO ; Start 02/09/18 at 09: 00; Stop 02/09/18 at 09:12; Status DC Non-Formulary Medication (Albuterol Sulfate (Albuterol Sulfate Neb Soln)) 1 vial QID NEB ; Start 02/09/18 at 09:00; Stop 02/09/18 at 09:22; Status DC Citalopram Hydrobromide (CeleXA) 40 mg QHS PO ; Start 02/09/18 at 21:00; Stop 02/09/18 at 21:00; Status DC Hydrochlorothiazide (Microzide) 12.5 mg QHS PO ; Start 02/09/18 at 21:00; Stop 02/09/18 at 21:00; Status DC Non-Formulary Medication (Magnesium Oxide ) 1 tab DAILY PO ; Start 02/09/18 at 09:00; Stop 02/09/18 at 09:14; Status DC Non-Formulary Medication (Multivitamin (Multivitamins)) 1 tab DAILY PO ; Start 02/09/18 at 09:00; Stop 02/09/18 at 09:14; Status DC Nicotine (Nicoderm Cq 14mg) 1 patch DAILY TD Last administered on 02/09/18at 09 :33; Start 02/09/18 at 10:00 Ondansetron HCl (Zofran Odt) 4 mg Q6HRS PO ; Start 02/09/18 at 12:00 Non-Formulary Medication (Polyethylene Glycol 3350 (Miralax)) 1 packet DAILY PO ; Start 02/09/18 at 09:00; Stop 02/09/18 at 09:17; Status DC Quetiapine Fumarate (SEROquel) 25 mg QHS PO ; Start 02/09/18 at 21:00; Stop at 21:00; Status DC Labetalol HCl (Normodyne Iv Push) 10 mg PRN Q2HR PRN IVP HYPERTENSION, SEE COMMENTS; Start 02/09/18 at 09:00; Stop 02/09/18 at 09:06; Status DC Acetaminophen (Tylenol) 500 mg BID PO ; Start 02/09/18 at 10:00; Stop at 10:16; Status DC Magnesium Oxide (Magnesium Oxide) 400 mg DAILY PO ; Start 02/09/18 at 10:00 Multivitamins (Thera M Plus) 1 tab DAILY PO ; Start 02/09/18 at 10:00; Stop at 10:16; Status DC Polyethylene Glycol (miraLAX PACKET) 17 gm DAILY PO ; Start 02/09/18 at 10:00; Stop 02/09/18 at 10:16; Status DC Albuterol Sulfate (Ventolin Neb Soln) 2.5 mg RTQID NEB ; Start 02/09/18 at 12: 00 Active Scripts Active Percocet 5-325 Mg Tablet (Oxycodone/Acetaminophen) 1 Each Tablet 1 Tab PO BID 3 Days Reported Zofran (Ondansetron Hcl) 4 Mg Tablet 1 Tab PO Q6HRS Milk Of Magnesia (Magnesium Hydroxide) 400 Mg/5 Ml Oral.susp 400 Mg PO Acetaminophen 500 Mg Tablet 1 Tab PO BID Clonidine Hcl 0.1 Mg Tablet 1 Tab PO QHS Tramadol Hcl 50 Mg Tablet 50 Mg PO DAILY PRN Hydralazine Hcl 20 Mg/1 Ml Vial 20 Mg IJ Gabapentin (Gabapentin) 300 Mg Capsule 300 Mg PO TID Acidophilus (Lactobacillus Acidophilus) 1 Each Capsule 1 Each PO Atorvastatin Calcium 10 Mg Tablet 1 Tab PO DAILY Vitamin C (Ascorbic Acid) 500 Mg Tablet.er 500 Mg PO Aspirin 325 Mg Tablet 1 Tab PO DAILY Colace (Docusate Sodium) 100 Mg Capsule 1 Cap PO BID Magnesium Oxide 400 Mg Tablet 1 Tab PO DAILY Multivitamins (Multivitamin) 1 Each Tablet 1 Tab PO DAILY NICODERM CQ 14mg (Nicotine) 1 Each Patch.td24 1 Patch TP DAILY Miralax (Polyethylene Glycol 3350) 17 Gm Powd.pack 1 Packet PO DAILY Albuterol Sulfate Neb Soln (Albuterol Sulfate) 0.63 Mg/3 Ml Vial.neb 1 Vial NEB QID Prednisone 20 Mg Tablet 1 Tab PO DAILY Seroquel (Quetiapine Fumarate) 25 Mg Tablet 1 Tab PO QHS Hydrochlorothiazide Tablet (Hydrochlorothiazide) 12.5 Mg Tablet 1 Tab PO QHS Lexapro (Escitalopram Oxalate) 20 Mg Tablet 1 Tab PO QHS Hydrocodone-Apap 10-325 (Hydrocodone Bit/Acetaminophen) 1 Each Tablet 1 Tab PO PRN Q4HRS Oxycontin (Oxycodone HCl) 10 Mg Tab.er.12h 10 Mg PO BID Vitals/I & O Vital Sign - Last 24 Hours 02/08/18 02/08/18 02/08/18 02/08/18 15:42 15:48 15:50 16:03 Temp 102.6 102.6 Pulse 153 142 136 Resp 40 B/P (MAP) 190/100 (130) 171/84 (113) 153/85 (107) Pulse Ox 93 100 99 95 O2 Delivery BiPAP/CPAP BiPAP/CPAP BiPAP/CPAP BiPAP/CPAP 02/08/18 02/08/18 02/08/1818 16:18 16:33 16:48 17:03 Pulse 130 124 120 112 B/P (MAP) 124/83 (97) 125/69 (87) 177/95 (122) 115/69 (84) Pulse Ox 96 98 97 98 O2 Delivery BiPAP/CPAP BiPAP/CPAP BiPAP/CPAP BiPAP/CPAP 02/08/18 02/08/18 02/08/18 02/08/18 17:25 17:47 18:25 20:00 Temp 101.0 101.0 Pulse 112 110 Resp 22 B/P (MAP) 106/70 (82) 114/66 (82) Pulse Ox 99 99 95 O2 Delivery BiPAP/CPAP BiPAP/CPAP BiPAP/CPAP Bi-pap 02/08/18 02/08/18 02/08/18 02/08/18 20:00 20:04 21:00 22:00 Temp 101.3 101.3 Pulse 108 112 114 Resp 22 22 22 B/P (MAP) 137/83 (101) 186/103 (130) 183/96 (125) Pulse Ox 100 100 100 100 O2 Delivery BiPAP/CPAP BiPAP/CPAP BiPAP/CPAP BiPAP/CPAP 02/08/18 02/08/18 02/08/18 02/08/18 22:03 22:05 22:23 23:00 Pulse 113 114 Resp 22 20 18 B/P (MAP) 183/96 147/97 (114) Pulse Ox 100 100 100 O2 Delivery BiPAP/CPAP BiPAP/CPAP BiPAP/CPAP 02/08/18 02/08/18 02/08/18 02/09/18 23:16 23:36 23:59 00:00 Pulse 120 Resp 16 B/P (MAP) 154/107 (123) Pulse Ox 100 100 97 O2 Delivery BiPAP/CPAP BiPAP/CPAP Bi-pap BiPAP/CPAP 02/09/18 02/09/18 02/09/18 02/09/18 01:00 01:05 01:45 02:00 Temp 101.5 101.5 Pulse 120 123 102 Resp 18 16 B/P (MAP) 158/88 (111) 158/88 145/89 (107) Pulse Ox 97 100 98 O2 Delivery BiPAP/CPAP BiPAP/CPAP BiPAP/CPAP 02/09/18 02/09/18 02/09/1815/18 03:00 03:01 04:00 04:00 Pulse 114 118 Resp 16 20 B/P (MAP) 149/84 (105) 147/91 (109) Pulse Ox 94 94 92 O2 Delivery BiPAP/CPAP BiPAP/CPAP Bi-pap BiPAP/CPAP 02/09/18 02/09/18 02/09/18 02/09/18 05:00 05:45 06:00 07:00 Temp 103.0 103.0 Pulse 118 122 124 Resp 18 20 22 B/P (MAP) 153/93 (113) 156/93 (114) 157/93 (114) Pulse Ox 92 89 93 92 O2 Delivery BiPAP/CPAP BiPAP/CPAP BiPAP/CPAP BiPAP/CPAP 02/09/18 02/09/18 02/09/18 02/09/18 07:47 08:00 08:02 09:00 Temp 103.3 103.3 Pulse 128 Resp 22 B/P (MAP) 119/82 (94) Pulse Ox 92 93 O2 Delivery BiPAP/CPAP BiPAP/CPAP Bi-pap 02/09/18 02/09/18 02/09/18 02/09/18 09:00 10:00 10:47 11:00 Temp 99.8 99.8 Pulse 116 128 108 Resp 24 22 24 B/P (MAP) 155/95 (115) 160/91 (114) 128/78 (95) Pulse Ox 91 92 92 O2 Delivery BiPAP/CPAP BiPAP/CPAP BiPAP/CPAP 02/09/18 11:23 Pulse Ox 93 O2 Delivery BiPAP/CPAP Intake and Output 02/08/18 02/08/18 02/09/18 15:00 23:00 07:00 Intake Total 291 ml Output Total 1075 ml 660 ml Balance -1075 ml -369 ml ALEX RUDOLPH MD Feb 09, 2018 11:52
[2018-02-09] MEDS: ALBUTEROL SULFATE 2.5 MG/3 ML NEBU. NEB SCH ×3 (12:00→20:00)
[2018-02-09] MEDS: ONDANSETRON ODT 4 MG TAB.RAPDIS. PO SCH ×2 (12:00→18:00)
[2018-02-09 12:29] LABS: BILIRUBIN,URINE NEGATIVE (NEG); CLARITY,URINE CLOUDY; COLOR,URINE YELLOW; NITRITE,URINE NEGATIVE (NEG); PH,URINE 5.5; PROTEIN,URINE 100 mg/dL (NEG-TRACE); UROBILINOGEN,URINE 0.2 mg/dL (0.2 mg/dL)
[2018-02-09 12:51] LABS: RBC,URINE 0 /HPF (0-2)
[2018-02-09 12:52] LABS: BACTERIA,URINE 0 /HPF (0-FEW); SQUAMOUS EPITHELIAL CELL,UR FEW /LPF
[2018-02-09 13:06] LABS: BASE EXCESS ABG 0 mmol/L (-3-3); FIO2 ABG 40; HCO3 ABG 23 mmol/L (21-28); PCO2 ABG 30 mmHg (35-46); PO2 ABG 71 mmHg (65-108); SAT O2 ABG 94 % (92-99)
[2018-02-09] MEDS: MORPHINE SULFATE 4 MG/ML VIAL. IV PRN ×2 (15:06→19:45)
[2018-02-09] MEDS ORDERED: VANCOMYCIN 1 GM in IV NORMAL SALINE 250ML 250 ML IV SCH (16:30)
--- NOTE | 2018-02-09 19:08 | CONS ---
DATE OF CONSULTATION: 02/09/2018 REFERRING PHYSICIAN: Dr. Arellano. REASON FOR CONSULTATION: Severe sepsis and fever. HISTORY OF PRESENT ILLNESS: This patient is a 67-year-old female with a past medical history of paroxysmal atrial fibrillation, hypertension, severe peripheral vascular disease, COPD, and congestive heart failure who presented to the ER via ambulance for chest pain, shortness of air and hypoxia. She refused intubation. After placed on BiPAP she vomited. She was found to have a fever of 102.6, white blood cell count was 14.2 and a lactic acid of 3.6. She had elevated troponin of greater than 17 and a BNP greater than 35,000. Influenza screen was negative. There is no ST elevation on the EKG noted. She has been seen by Cardiology and felt to have a non-ST elevation myocardial infarction as well as acute diastolic heart failure. A chest x-ray showed a patchy density at the left lung base, may represent atelectasis versus infiltrate. She was dosed with vancomycin and Zosyn in ER. The patient is currently in the Intensive Care Unit. She remains on BiPAP with a FiO2 of 40% and satting above 90%. She was recently sedated and is unable to provide additional history of present illness or review of systems. She had a fever of 103.3 earlier that has since come down after taking some Tylenol per nurse. PAST MEDICAL HISTORY: History of infected right ankle wound with enterobacter (resistant amoxicillin/clavulanic acid, cefazolin, cefuroxime). History of Clostridium difficile colitis, history of seizures, severe peripheral arterial disease, congestive heart failure, paroxysmal atrial fibrillation, hypertension, fibromyalgia, anxiety disorder, chronic pain syndrome, degenerative disk disease, history of CVA, COPD. PAST SURGICAL HISTORY: I and D right ankle wound, appendectomy, hysterectomy rotator cuff repair, history of fecal transplant. SOCIAL HISTORY: The patient lives at home. Current every day smoker. FAMILY HISTORY: Noncontributory. ALLERGIES: LISTED METRONIDAZOLE, REACTION UNKNOWN, NSAIDs AND CODEINE. MEDICATIONS: Vancomycin, Zosyn. Other medications are available and have been reviewed on the APR. REVIEW OF SYSTEMS: Unobtainable as the patient was recently given Ativan and is sedated. PHYSICAL EXAMINATION: VITAL SIGNS: Temperature 99.8, T-max 103.3, blood pressure 156/93, heart rate 122, respiratory rate 20, pulse oximetry 92% on FiO2 of 40% via BiPAP. GENERAL: The patient is lying down on BiPAP, calm. HEENT: Pupils equally round. Normal conjunctivae. Oral cavity dry. NECK: Supple. LUNGS: Clear to auscultation. HEART: S1, S2. ABDOMEN: Obese, soft. No grimace or guarding to palpation. Bowel sounds present. She has abdominal midline scar. GENITOURINARY: Indwelling Forman in place. EXTREMITIES: Trace edema in lower extremities bilaterally. No cyanosis. SKIN: Warm without rash. NEUROLOGIC: Arouses to name. LINES: Peripheral IV looks okay. LABORATORY DATA: Today's WBC 8.2, hemoglobin 11.6, platelets 203,000. Creatinine 1.3 from 1.4 on admission, BUN 17, sodium 135, potassium 4.1, repeat lactic acid 1.4. Troponin 30.211. BNP greater than 35,000. Albumin 3.2, lipase 46, total bilirubin 0.3, AST 86, ALT 23. UA and culture if indicated pending. MRSA PCR pending. Chest x-ray per HPI. IMPRESSION: 1. Sepsis with lactic acidosis, present on admission. 2. Acute respiratory failure, likely aspirated. She refused intubation and is currently on BiPAP. 3. Fever. 4. ALLERGY TO METRONIDAZOLE. 5. Non-ST elevation myocardial infarction. 6. Acute diastolic heart failure. 7. Paroxysmal atrial fibrillation. 8. Peripheral vascular disease. 9. History of seizures. 10. History of Clostridium difficile, with fecal transplant. PLAN: Obtain blood cultures x 2 sets. Continue the vancomycin and Zosyn for now. Monitor laboratory values, temperature and renal function closely. We will follow up on culture results. Supportive care. Thank you, Dr. Arellano, for asking us to participate in this patient's care. Should you have further questions or concerns, please call. RAEGAN DAVALOS MD DR: ZEUS/regla JOB#: [id number] / [id number]
--- NOTE | 2018-02-09 19:55 | EKG ---
[facility] [address] [place] [address] Test Date: 2018-02-08 Test Time: 16:20:42 Pat Name: FINN ELLER Department: Room: [facility] Gender: F Front Desk Coordinator: RAMIRO : 1950 Requested By: RAFAT MIKE Order Number: [id number] Reading MD: Gregorio Worley Measurements Intervals [place] Rate: 127 P: -90 DE: 110 QRS: 66 QRSD: 88 T: 66 QT: 332 QTc: 488 Interpretive Statements SINUS TACHYCARDIA Electronically Signed On 02-12-2018 10:32:24 [employer] by Gregorio Worley
[2018-02-09] MEDS ORDERED: FUROSEMIDE 40 MG/4 ML VIAL. IVP ONE (20:00)
[2018-02-09] MEDS ORDERED: ROCURONIUM 50 MG/5 ML VIAL. ONE ×2 (20:23→21:00)
--- NOTE | 2018-02-09 20:28 | RAD ---
Single view chest 02/09/2018 CLINICAL INDICATION: 02/08/2018 FINDINGS: Cardiac and mediastinal silhouettes are stable. Multiple surgical clips overlying the lower neck. Worsening right lower lobe airspace opacities. Slight interval increase in right upper lobe airspace opacities. Unchanged diffuse interstitial and additional scattered airspace opacities. Small bilateral pleural effusions. No pneumothorax. IMPRESSION: 1. Slight worsening in right lung airspace opacities, indeterminate between pulmonary edema, pneumonitis or infection. 2. Findings suggestive of CHF or volume overload with pulmonary edema and bilateral pleural effusions. Electronically signed by: Marvin Johnson MD (02/09/2018 8:24 PM) [id number]
[2018-02-09] MEDS ORDERED: CITALOPRAM 20 MG TABLET. PO SCH (21:00)
[2018-02-09] MEDS ORDERED: hydroCHLOROthiazide 12.5 MG CAPSULE PO SCH (21:00)
[2018-02-09] MEDS ORDERED: ATORVASTATIN CALCIUM 10 MG TABLET. PO SCH (21:00)
[2018-02-09] MEDS ORDERED: QUEtiapine 25 MG TABLET. PO SCH (21:00)
--- NOTE | 2018-02-09 21:31 | RAD ---
Single view chest 02/09/2018 CLINICAL INDICATION: Intubation. COMPARISON: Same day chest FINDINGS: Placement of endotracheal tube well above the level the sohan. Transesophageal gastric tube courses below the level of the hemidiaphragms of the distal tip not visualized on the proximal side-port overlying the proximal stomach. Cardiac and mediastinal silhouettes are unremarkable. Improved aeration both lungs. Persistent diffuse interstitial opacities and scattered airspace opacities, left greater than right. Small bilateral pleural effusions. No pneumothorax. IMPRESSION: 1. Lines and tubes, as detailed. 2. Slight improved aeration in the right lung. 2. Diffuse interstitial and scattered airspace opacities. Electronically signed by: Marvin Johnson MD (02/09/2018 9:27 PM) [facility]
[2018-02-09] MEDS: PROPOFOL 100 ML IV PRN (22:08)
[2018-02-09] MEDS: MIDAZOLAM 100mg/100ml NS BAG 100 ML IV PRN (22:09)
[2018-02-09 22:24] LABS: BASE EXCESS ABG -4 mmol/L (-3-3); HCO3 ABG 24 mmol/L (21-28); PCO2 ABG 52 mmHg (35-46); PO2 ABG 51 mmHg (65-108); SAT O2 ABG 79 % (92-99)
[2018-02-09 22:25] LABS: FIO2 ABG 100
[2018-02-09] MEDS: FAMOTIDINE 20 MG/2 ML VIAL IVP SCH (23:53)
[2018-02-10] VITALS (30 sets, daily range): BP systolic 62–164; BP diastolic 45–92
[2018-02-10] MEDS: HEPARIN 25,000UTS/500ML PREMIX 500 ML IV PRN (00:59)
[2018-02-10] MEDS ORDERED: NOREPINEPHRIN 8MG/250ML PREMIX 250 ML IV ONE (02:33)
[2018-02-10] MEDS: NOREPINEPHRIN 8MG/250ML PREMIX 250 ML IV PRN (03:30)
[2018-02-10 05:48] LABS: BASO # 0.1 x10^3/uL (0.0-0.2); BASO % 1 % (0-3); EOS % 0 % (0-3); HEMATOCRIT 39.8 % (36.0-47.0); HEMOGLOBIN 13.4 g/dL (12.0-15.5); LYMPH # 1.2 x10^3/uL (1.0-4.8); LYMPH % 14 % (24-48); MEAN CORPUSCULAR HEMOGLOBIN 31 pg (25-35); MEAN CORPUSCULAR HGB CONC 34 g/dL (31-37); MEAN CORPUSCULAR VOLUME 91 fL (79-100); MONO # 0.3 x10^3/uL (0.0-1.1); MONO % 3 % (0-9); NEUT # 6.9 x10^3uL (1.8-7.7); NEUT % 82 % (31-73); PLATELET COUNT 199 x10^3/uL (140-400); RED BLOOD COUNT 4.39 x10^6/uL (3.50-5.40); RED CELL DISTRIBUTION WIDTH 17.4 % (11.5-14.5); WHITE BLOOD COUNT 8.4 x10^3/uL (4.0-11.0)
[2018-02-10] MEDS: ONDANSETRON ODT 4 MG TAB.RAPDIS. PO SCH ×5 (06:00→23:59)
[2018-02-10] MEDS: PIPERACILLIN/TAZOBACTAM 3.375 GM in IV NORMAL SALINE 50ML 50 ML IV SCH ×4 (06:04→23:59)
[2018-02-10 06:25] LABS: ALBUMIN 2.7 g/dL (3.4-5.0); ALBUMIN/GLOBULIN RATIO 0.8 (1.0-1.7); CALCIUM 7.9 mg/dL (8.5-10.1); CREATININE 2.1 mg/dL (0.6-1.0); GFR 23.6; POTASSIUM 3.2 mmol/L (3.5-5.1); TOTAL BILIRUBIN 0.3 mg/dL (0.2-1.0); TOTAL PROTEIN 6.2 g/dL (6.4-8.2)
--- NOTE | 2018-02-10 06:44 | PDOC ---
PULMONARY PROGRESS NOTES Subjective worsening resp fail, intubated 02/09, on vent sedated, levo, fentanyl, versed, small ett secretion Vitals Vital Signs Date Time Temp Pulse Resp B/P (MAP) Pulse Ox O2 Delivery O2 Flow Rate FiO2 02/10/18 06:00 102 21 108/64 (79) 100 BiPAP/CPAP 02/10/18 04:00 98.5 98.5 Comments ros as mentioned as above other sys otherwise neg Lungs: Clear Cardiovascular: S1, S2 Abdomen: Soft, Non-tender Extremities: No Edema Labs Laboratory Tests Test 02/08/18 15:44 02/08/18 16:40 02/08/18 17:10 02/08/18 20:00 White Blood Count 14.2 x10^3/uL (4.0-11.0) Red Blood Count 4.32 x10^6/uL (3.50-5.40) Hemoglobin 13.2 g/dL (12.0-15.5) Hematocrit 39.1 % (36.0-47.0) Mean Corpuscular Volume 91 fL (79-100) Mean Corpuscular Hemoglobin 31 pg (25-35) Mean Corpuscular Hemoglobin Concent 34 g/dL (31-37) Red Cell Distribution Width 17.1 % (11.5-14.5) Platelet Count 279 x10^3/uL (140-400) Neutrophils (%) (Auto) 79 % (31-73) Lymphocytes (%) (Auto) 14 % (24-48) Monocytes (%) (Auto) 7 % (0-9) Eosinophils (%) (Auto) 0 % (0-3) Basophils (%) (Auto) 1 % (0-3) Neutrophils # (Auto) 11.2 x10^3uL (1.8-7.7) Lymphocytes # (Auto) 2.0 x10^3/uL (1.0-4.8) Monocytes # (Auto) 1.0 x10^3/uL (0.0-1.1) Eosinophils # (Auto) 0.0 x10^3/uL (0.0-0.7) Basophils # (Auto) 0.1 x10^3/uL (0.0-0.2) Prothrombin Time 16.8 SEC (11.7-14.0) Prothromb Time International Ratio 1.4 (0.8-1.1) Activated Partial Thromboplast Time 37 SEC (24-38) Sodium Level 135 mmol/L (136-145) Potassium Level 4.1 mmol/L (3.5-5.1) Chloride Level 97 mmol/L (98-107) Carbon Dioxide Level 24 mmol/L (21-32) Anion Gap 14 (6-14) Blood Urea Nitrogen 17 mg/dL (7-20) Creatinine 1.4 mg/dL (0.6-1.0) Estimated GFR (Cockcroft-Gault) 37.6 Glucose Level 185 mg/dL (70-99) Lactic Acid Level 3.6 mmol/L (0.4-2.0) Calcium Level 9.1 mg/dL (8.5-10.1) Total Bilirubin 0.3 mg/dL (0.2-1.0) Direct Bilirubin 0.1 mg/dL (0.0-0.2) Aspartate Amino Transf (AST/SGOT) 86 U/L (15-37) Alanine Aminotransferase (ALT/SGPT) 23 U/L (14-59) Alkaline Phosphatase 70 U/L (46-116) Troponin I Quantitative 17.772 ng/mL (0.000-0.055) 18.859 ng/mL (0.000-0.055) XU-Fjk-H-Type Natriuretic Peptide > 16512 pg/mL (0-124) Total Protein 7.7 g/dL (6.4-8.2) Albumin 3.2 g/dL (3.4-5.0) Lipase 46 U/L (73-393) O2 Saturation 93 % (92-99) Arterial Blood pH 7.48 (7.35-7.45) Arterial Blood pCO2 at Patient Temp 32 mmHg (35-46) Arterial Blood pO2 at Patient Temp 67 mmHg (65-108) Arterial Blood HCO3 23 mmol/L (21-28) Arterial Blood Base Excess 0 mmol/L (-3-3) Oxyhemoglobin 91.6 % Methemoglobin 0.1 % (0.0-1.9) Carbon Monoxide, Quantitative 1.3 % (0.0-1.9) FiO2 50 Magnesium Level 1.5 mg/dL (1.8-2.4) Nasal Screen MRSA (PCR) Negative (Negative) Test 02/08/18 21:30 02/08/18 22:10 02/09/18 00:40 02/09/18 05:00 Lactic Acid Level 1.4 mmol/L (0.4-2.0) Influenza Type A Antigen Negative (NEGATIVE) Influenza Type B Antigen Negative (NEGATIVE) Heparin Anti-Xa Act, Unfractionated 0.77 IU/mL (0.30-0.70) White Blood Count 8.2 x10^3/uL (4.0-11.0) Red Blood Count 3.79 x10^6/uL (3.50-5.40) Hemoglobin 11.6 g/dL (12.0-15.5) Hematocrit 34.1 % (36.0-47.0) Mean Corpuscular Volume 90 fL (79-100) Mean Corpuscular Hemoglobin 31 pg (25-35) Mean Corpuscular Hemoglobin Concent 34 g/dL (31-37) Red Cell Distribution Width 16.4 % (11.5-14.5) Platelet Count 203 x10^3/uL (140-400) Creatinine 1.3 mg/dL (0.6-1.0) Estimated GFR (Cockcroft-Gault) 41.0 Troponin I Quantitative 30.211 ng/mL (0.000-0.055) Test 02/09/18 06:35 02/09/18 10:55 02/09/18 12:46 02/09/18 14:13 Heparin Anti-Xa Act, Unfractionated 0.47 IU/mL (0.30-0.70) 0.49 IU/mL (0.30-0.70) Urine Collection Type Unknown Urine Color Yellow Urine Clarity Cloudy Urine pH 5.5 Urine Specific [place] 1.025 Urine Protein 100 mg/dL (NEG-TRACE) Urine Glucose (UA) Negative mg/dL (NEG) Urine Ketones (Stick) Negative mg/dL (NEG) Urine Blood Moderate (NEG) Urine Nitrite Negative (NEG) Urine Bilirubin Negative (NEG) Urine Urobilinogen Dipstick 0.2 mg/dL (0.2 mg/dL) Urine Leukocyte Esterase Negative (NEG) Urine RBC 0 /HPF (0-2) Urine WBC 1-4 /HPF (0-4) Urine Squamous Epithelial Cells Few /LPF Urine Bacteria 0 /HPF (0-FEW) O2 Saturation 94 % (92-99) Arterial Blood pH 7.50 (7.35-7.45) Arterial Blood pCO2 at Patient Temp 30 mmHg (35-46) Arterial Blood pO2 at Patient Temp 71 mmHg (65-108) Arterial Blood HCO3 23 mmol/L (21-28) Arterial Blood Base Excess 0 mmol/L (-3-3) FiO2 40 Test 02/09/18 22:00 02/10/18 05:15 O2 Saturation 79 % (92-99) Arterial Blood pH 7.27 (7.35-7.45) Arterial Blood pCO2 at Patient Temp 52 mmHg (35-46) Arterial Blood pO2 at Patient Temp 51 mmHg (65-108) Arterial Blood HCO3 24 mmol/L (21-28) Arterial Blood Base Excess -4 mmol/L (-3-3) FiO2 100 White Blood Count 8.4 x10^3/uL (4.0-11.0) Red Blood Count 4.39 x10^6/uL (3.50-5.40) Hemoglobin 13.4 g/dL (12.0-15.5) Hematocrit 39.8 % (36.0-47.0) Mean Corpuscular Volume 91 fL (79-100) Mean Corpuscular Hemoglobin 31 pg (25-35) Mean Corpuscular Hemoglobin Concent 34 g/dL (31-37) Red Cell Distribution Width 17.4 % (11.5-14.5) Platelet Count 199 x10^3/uL (140-400) Neutrophils (%) (Auto) 82 % (31-73) Lymphocytes (%) (Auto) 14 % (24-48) Monocytes (%) (Auto) 3 % (0-9) Eosinophils (%) (Auto) 0 % (0-3) Basophils (%) (Auto) 1 % (0-3) Neutrophils # (Auto) 6.9 x10^3uL (1.8-7.7) Lymphocytes # (Auto) 1.2 x10^3/uL (1.0-4.8) Monocytes # (Auto) 0.3 x10^3/uL (0.0-1.1) Eosinophils # (Auto) 0.0 x10^3/uL (0.0-0.7) Basophils # (Auto) 0.1 x10^3/uL (0.0-0.2) Heparin Anti-Xa Act, Unfractionated 0.72 IU/mL (0.30-0.70) Sodium Level 144 mmol/L (136-145) Potassium Level 3.2 mmol/L (3.5-5.1) Chloride Level 104 mmol/L (98-107) Carbon Dioxide Level 27 mmol/L (21-32) Anion Gap 13 (6-14) Blood Urea Nitrogen 45 mg/dL (7-20) Creatinine 2.1 mg/dL (0.6-1.0) Estimated GFR (Cockcroft-Gault) 23.6 BUN/Creatinine Ratio 21 (6-20) Glucose Level 114 mg/dL (70-99) Calcium Level 7.9 mg/dL (8.5-10.1) Magnesium Level 2.2 mg/dL (1.8-2.4) Total Bilirubin 0.3 mg/dL (0.2-1.0) Aspartate Amino Transf (AST/SGOT) 187 U/L (15-37) Alanine Aminotransferase (ALT/SGPT) 34 U/L (14-59) Alkaline Phosphatase 52 U/L (46-116) Total Protein 6.2 g/dL (6.4-8.2) Albumin 2.7 g/dL (3.4-5.0) Albumin/Globulin Ratio 0.8 (1.0-1.7) Laboratory Tests Test 02/09/18 10:55 02/09/18 12:46 02/09/18 14:13 02/09/18 22:00 Urine Collection Type Unknown Urine Color Yellow Urine Clarity Cloudy Urine pH 5.5 Urine Specific [place] 1.025 Urine Protein 100 mg/dL (NEG-TRACE) Urine Glucose (UA) Negative mg/dL (NEG) Urine Ketones (Stick) Negative mg/dL (NEG) Urine Blood Moderate (NEG) Urine Nitrite Negative (NEG) Urine Bilirubin Negative (NEG) Urine Urobilinogen Dipstick 0.2 mg/dL (0.2 mg/dL) Urine Leukocyte Esterase Negative (NEG) Urine RBC 0 /HPF (0-2) Urine WBC 1-4 /HPF (0-4) Urine Squamous Epithelial Cells Few /LPF Urine Bacteria 0 /HPF (0-FEW) O2 Saturation 94 % (92-99) 79 % (92-99) Arterial Blood pH 7.50 (7.35-7.45) 7.27 (7.35-7.45) Arterial Blood pCO2 at Patient Temp 30 mmHg (35-46) 52 mmHg (35-46) Arterial Blood pO2 at Patient Temp 71 mmHg (65-108) 51 mmHg (65-108) Arterial Blood HCO3 23 mmol/L (21-28) 24 mmol/L (21-28) Arterial Blood Base Excess 0 mmol/L (-3-3) -4 mmol/L (-3-3) FiO2 40 100 Heparin Anti-Xa Act, Unfractionated 0.49 IU/mL (0.30-0.70) Test 02/10/18 05:15 White Blood Count 8.4 x10^3/uL (4.0-11.0) Red Blood Count 4.39 x10^6/uL (3.50-5.40) Hemoglobin 13.4 g/dL (12.0-15.5) Hematocrit 39.8 % (36.0-47.0) Mean Corpuscular Volume 91 fL (79-100) Mean Corpuscular Hemoglobin 31 pg (25-35) Mean Corpuscular Hemoglobin Concent 34 g/dL (31-37) Red Cell Distribution Width 17.4 % (11.5-14.5) Platelet Count 199 x10^3/uL (140-400) Neutrophils (%) (Auto) 82 % (31-73) Lymphocytes (%) (Auto) 14 % (24-48) Monocytes (%) (Auto) 3 % (0-9) Eosinophils (%) (Auto) 0 % (0-3) Basophils (%) (Auto) 1 % (0-3) Neutrophils # (Auto) 6.9 x10^3uL (1.8-7.7) Lymphocytes # (Auto) 1.2 x10^3/uL (1.0-4.8) Monocytes # (Auto) 0.3 x10^3/uL (0.0-1.1) Eosinophils # (Auto) 0.0 x10^3/uL (0.0-0.7) Basophils # (Auto) 0.1 x10^3/uL (0.0-0.2) Heparin Anti-Xa Act, Unfractionated 0.72 IU/mL (0.30-0.70) Sodium Level 144 mmol/L (136-145) Potassium Level 3.2 mmol/L (3.5-5.1) Chloride Level 104 mmol/L (98-107) Carbon Dioxide Level 27 mmol/L (21-32) Anion Gap 13 (6-14) Blood Urea Nitrogen 45 mg/dL (7-20) Creatinine 2.1 mg/dL (0.6-1.0) Estimated GFR (Cockcroft-Gault) 23.6 BUN/Creatinine Ratio 21 (6-20) Glucose Level 114 mg/dL (70-99) Calcium Level 7.9 mg/dL (8.5-10.1) Magnesium Level 2.2 mg/dL (1.8-2.4) Total Bilirubin 0.3 mg/dL (0.2-1.0) Aspartate Amino Transf (AST/SGOT) 187 U/L (15-37) Alanine Aminotransferase (ALT/SGPT) 34 U/L (14-59) Alkaline Phosphatase 52 U/L (46-116) Total Protein 6.2 g/dL (6.4-8.2) Albumin 2.7 g/dL (3.4-5.0) Albumin/Globulin Ratio 0.8 (1.0-1.7) Medications Active Scripts Medications Dose Route/Sig Max Daily Dose Days Date Category Zofran (Ondansetron Hcl) 4 Mg Tablet 1 Tab PO Q6HRS 09/20/17 Reported Milk Of Magnesia (Magnesium Hydroxide) 400 Mg/5 Ml Oral.susp 400 Mg PO 09/20/17 Reported Acetaminophen 500 Mg Tablet 1 Tab PO BID 09/20/17 Reported Clonidine Hcl 0.1 Mg Tablet 1 Tab PO QHS 09/20/17 Reported Tramadol Hcl 50 Mg Tablet 50 Mg PO DAILY PRN 09/20/17 Reported Hydralazine Hcl 20 Mg/1 Ml Vial 20 Mg IJ 09/20/17 Reported Gabapentin (Gabapentin) 300 Mg Capsule 300 Mg PO TID 09/20/17 Reported Acidophilus (Lactobacillus Acidophilus) 1 Each Capsule 1 Each PO 09/20/17 Reported Atorvastatin Calcium 10 Mg Tablet 1 Tab PO DAILY 09/20/17 Reported Vitamin C (Ascorbic Acid) 500 Mg Tablet.er 500 Mg PO 09/20/17 Reported Aspirin 325 Mg Tablet 1 Tab PO DAILY 09/20/17 Reported Colace (Docusate Sodium) 100 Mg Capsule 1 Cap PO BID 09/20/17 Reported Magnesium Oxide 400 Mg Tablet 1 Tab PO DAILY 09/20/17 Reported Multivitamins (Multivitamin) 1 Each Tablet 1 Tab PO DAILY 09/20/17 Reported NICODERM CQ 14mg (Nicotine) 1 Each Patch.td24 1 Patch TP DAILY 09/20/17 Reported Miralax (Polyethylene Glycol 3350) 17 Gm Powd.pack 1 Packet PO DAILY 09/20/17 Reported Albuterol Sulfate Neb Soln (Albuterol Sulfate) 0.63 Mg/3 Ml Vial.neb 1 Vial NEB QID 09/20/17 Reported Prednisone 20 Mg Tablet 1 Tab PO DAILY 09/20/17 Reported Percocet 5-325 Mg Tablet (Oxycodone/Acetaminophen) 1 Each Tablet 1 Tab PO BID 3 07/31/17 Rx Seroquel (Quetiapine Fumarate) 25 Mg Tablet 1 Tab PO QHS 10/21/16 Reported Hydrochlorothiazide Tablet (Hydrochlorothiazide) 12.5 Mg Tablet 1 Tab PO QHS 10/21/16 Reported Lexapro (Escitalopram Oxalate) 20 Mg Tablet 1 Tab PO QHS 10/21/16 Reported Hydrocodone-Apap 10-325 (Hydrocodone Bit/Acetaminophen) 1 Each Tablet 1 Tab PO PRN Q4HRS 10/21/16 Reported Oxycontin (Oxycodone HCl) 10 Mg Tab.er.12h 10 Mg PO BID 10/21/16 Reported Comments cxr reviewed ett too high Persistent patchy perihilar interstitial changes are identified with more focal nodular airspace density in the left upper lobe. There is trace right pleural effusion versus pleural thickening. No pneumothorax. Impression . IMPRESSION: 1. Acute hypoxemic respiratory failure secondary to acute diastolic congestive heart failure, non-ST elevation myocardial infarction, chronic obstructive pulmonary disease with mild exacerbation, sepsis versus others. 2. Abnormal chest x-ray. 3. Acute diastolic congestive heart failure. 4. Chronic obstructive pulmonary disease with mild acute exacerbation. 5. Acute bronchitis versus pneumonia, ? aspiration. 6. Smoker. 7. Leukocytosis. 8. History of cerebrovascular accident. 9. hypotension Plan . PLAN AND RECOMMENDATIONS: 1. Titrate FiO2 to keep O2 saturation 94%. 2. cont vent support, setting reviewed, abg reviewed. 4. Cardiology is consulted. Heparin per Cardiology. 5. cont antibiotic. id on case 6. Follow up blood cultures. 7. cont inhaled corticosteroid, add solumedrol 40 mg bid 8. Pepcid for stress ulcer prophylaxis. 9. Elevate head of bed. 10. CT of the chest when she is more stable. 11. will advance ett The findings and recommendations were discussed with RNs. the pt is critically ill, CC time 30 min JAREK BLACKWELL MD Feb 10, 2018 06:44
[2018-02-10 08:48] LABS: BASE EXCESS ABG -1 mmol/L (-3-3); HCO3 ABG 23 mmol/L (21-28); PCO2 ABG 35 mmHg (35-46); PO2 ABG 115 mmHg (65-108); SAT O2 ABG 98 % (92-99)
[2018-02-10] MEDS: IPRATROPIUM BROMIDE 0.5 MG/2.5 ML NEBU. NEB SCH ×4 (08:50→20:02)
[2018-02-10 08:52] LABS: FIO2 ABG 70
--- NOTE | 2018-02-10 08:52 | RAD ---
Chest radiograph 02/10/2018 5:00 AM INDICATION: Intubation COMPARISON: February 09, 2018 TECHNIQUE: Portable frontal semi-upright view of the chest is provided. FINDINGS: The cardiomediastinal silhouette is within normal limits. An endotracheal tube is in similar position measuring 9 cm above the level of the sohan. This may be advanced 3-5 cm. Nasogastric tube is in similar position. Persistent patchy perihilar interstitial changes are identified with more focal nodular airspace density in the left upper lobe. There is trace right pleural effusion versus pleural thickening. No pneumothorax. IMPRESSION: Endotracheal tube is in similar position measuring 9 cm above the level of the sohan. This may be advanced 3-5 cm. Otherwise, similar aeration of the lungs compared to prior examination. Critical results were discussed with Nanette at 8:45 AM on 02/10/[address] Freeman. Electronically signed by: Charissa Freeman MD (02/10/2018 8:48 AM) [facility]
--- NOTE | 2018-02-10 09:15 | PDOC ---
Infectious Disease Note Subjective Subjective Developed worsening respiratory failure last night, now intubated and sedated got lasix last night Hypotensive, on Levophed 5mcg No fevers last 24 hours No diarrhea ROS ROS unobtainable as patient is intubated and sedated Vital Sign Vital Signs Vital Signs Date Time Temp Pulse Resp B/P (MAP) Pulse Ox O2 Delivery O2 Flow Rate FiO2 02/10/18 08:36 100 Ventilator 02/10/18 07:21 25 02/10/18 06:00 102 108/64 (79) 02/10/18 04:00 98.5 98.5 Physical Exam PHYSICAL EXAM GENERAL: Intubated and sedated HEENT: Pupils equally round & reactive. ETT, OGT LUNGS: Clear to auscultation. HEART: S1, S2. ABDOMEN: Obese, soft. No grimace or guarding to palpation. Bowel sounds present. GENITOURINARY: Indwelling Forman in place. EXTREMITIES: Trace edema in lower extremities bilaterally. No cyanosis. SKIN: Warm without rash. NEUROLOGIC: Unresponsive/sedated PIVs ok Labs Lab Laboratory Tests Test 02/09/18 10:55 02/09/18 12:46 02/09/18 14:13 02/09/18 22:00 Urine Collection Type Unknown Urine Color Yellow Urine Clarity Cloudy Urine pH 5.5 Urine Specific Morton 1.025 Urine Protein 100 mg/dL (NEG-TRACE) Urine Glucose (UA) Negative mg/dL (NEG) Urine Ketones (Stick) Negative mg/dL (NEG) Urine Blood Moderate (NEG) Urine Nitrite Negative (NEG) Urine Bilirubin Negative (NEG) Urine Urobilinogen Dipstick 0.2 mg/dL (0.2 mg/dL) Urine Leukocyte Esterase Negative (NEG) Urine RBC 0 /HPF (0-2) Urine WBC 1-4 /HPF (0-4) Urine Squamous Epithelial Cells Few /LPF Urine Bacteria 0 /HPF (0-FEW) O2 Saturation 94 % (92-99) 79 % (92-99) Arterial Blood pH 7.50 (7.35-7.45) 7.27 (7.35-7.45) Arterial Blood pCO2 at Patient Temp 30 mmHg (35-46) 52 mmHg (35-46) Arterial Blood pO2 at Patient Temp 71 mmHg (65-108) 51 mmHg (65-108) Arterial Blood HCO3 23 mmol/L (21-28) 24 mmol/L (21-28) Arterial Blood Base Excess 0 mmol/L (-3-3) -4 mmol/L (-3-3) FiO2 40 100 Heparin Anti-Xa Act, Unfractionated 0.49 IU/mL (0.30-0.70) Test 02/10/18 05:15 02/10/18 08:41 White Blood Count 8.4 x10^3/uL (4.0-11.0) Red Blood Count 4.39 x10^6/uL (3.50-5.40) Hemoglobin 13.4 g/dL (12.0-15.5) Hematocrit 39.8 % (36.0-47.0) Mean Corpuscular Volume 91 fL (79-100) Mean Corpuscular Hemoglobin 31 pg (25-35) Mean Corpuscular Hemoglobin Concent 34 g/dL (31-37) Red Cell Distribution Width 17.4 % (11.5-14.5) Platelet Count 199 x10^3/uL (140-400) Neutrophils (%) (Auto) 82 % (31-73) Lymphocytes (%) (Auto) 14 % (24-48) Monocytes (%) (Auto) 3 % (0-9) Eosinophils (%) (Auto) 0 % (0-3) Basophils (%) (Auto) 1 % (0-3) Neutrophils # (Auto) 6.9 x10^3uL (1.8-7.7) Lymphocytes # (Auto) 1.2 x10^3/uL (1.0-4.8) Monocytes # (Auto) 0.3 x10^3/uL (0.0-1.1) Eosinophils # (Auto) 0.0 x10^3/uL (0.0-0.7) Basophils # (Auto) 0.1 x10^3/uL (0.0-0.2) Heparin Anti-Xa Act, Unfractionated 0.72 IU/mL (0.30-0.70) Sodium Level 144 mmol/L (136-145) Potassium Level 3.2 mmol/L (3.5-5.1) Chloride Level 104 mmol/L (98-107) Carbon Dioxide Level 27 mmol/L (21-32) Anion Gap 13 (6-14) Blood Urea Nitrogen 45 mg/dL (7-20) Creatinine 2.1 mg/dL (0.6-1.0) Estimated GFR (Cockcroft-Gault) 23.6 BUN/Creatinine Ratio 21 (6-20) Glucose Level 114 mg/dL (70-99) Calcium Level 7.9 mg/dL (8.5-10.1) Magnesium Level 2.2 mg/dL (1.8-2.4) Total Bilirubin 0.3 mg/dL (0.2-1.0) Aspartate Amino Transf (AST/SGOT) 187 U/L (15-37) Alanine Aminotransferase (ALT/SGPT) 34 U/L (14-59) Alkaline Phosphatase 52 U/L (46-116) Troponin I Quantitative 44.560 ng/mL (0.000-0.055) Total Protein 6.2 g/dL (6.4-8.2) Albumin 2.7 g/dL (3.4-5.0) Albumin/Globulin Ratio 0.8 (1.0-1.7) O2 Saturation 98 % (92-99) Arterial Blood pH 7.44 (7.35-7.45) Arterial Blood pCO2 at Patient Temp 35 mmHg (35-46) Arterial Blood pO2 at Patient Temp 115 mmHg (65-108) Arterial Blood HCO3 23 mmol/L (21-28) Arterial Blood Base Excess -1 mmol/L (-3-3) FiO2 70 FINDINGS: The cardiomediastinal silhouette is within normal limits. An endotracheal tube is in similar position measuring 9 cm above the level of the sohan. This may be advanced 3-5 cm. Nasogastric tube is in similar position. Persistent patchy perihilar interstitial changes are identified with more focal nodular airspace density in the left upper lobe. There is trace right pleural effusion versus pleural thickening. No pneumothorax. IMPRESSION: Endotracheal tube is in similar position measuring 9 cm above the level of the sohan. This may be advanced 3-5 cm. Otherwise, similar aeration of the lungs compared to prior examination. Micro BC from 02/09 pending Objective Assessment Sepsis with lactic acidosis, present on admission. Acute respiratory failure, likely aspirated. s/p intubation Hypotension - on Levophed Fever - better ALLERGY TO METRONIDAZOLE. ANGELICA Non-ST elevation myocardial infarction. Troponin up to 44.56 now. echo pending Acute diastolic heart failure. Paroxysmal atrial fibrillation. Peripheral vascular disease. History of seizures. History of Clostridium difficile, with fecal transplant. Plan Plan of Care Blood cultures from 02/09 pending Sputum culture not collected yet Given ANGELICA d/c vanc Continue Zosyn ,may need renal dosing Monitor labs/temp and renal function closely Echo pending Central line placement underway Supportive care D/w MICHAEL D/w Dr. Simpson Critically ill Patient seen, examined, I agree with assessment and plan D/W DELON STOCKTON APRN Feb 10, 2018 09:15 RAEGAN DAVALOS MD Feb 10, 2018 14:15
--- NOTE | 2018-02-10 09:44 | RAD ---
Chest radiograph 02/10/2018 9:28 AM INDICATION: PICC line insertion COMPARISON: February 10, 2018 at 0509 hours TECHNIQUE: Portable frontal semi-upright view of the chest is provided. FINDINGS: The cardiomediastinal silhouette is similar in appearance. Endotracheal tube is in similar position, 8 cm above the sohan. Right IJ central venous catheter is identified with the distal tip projecting over the cavoatrial junction. Nasogastric tube is in similar position. Aeration of lungs appears similar. No pneumothorax. IMPRESSION: Right IJ central venous catheter is identified with the distal tip projecting over the cavoatrial junction. No pneumothorax. Electronically signed by: Charissa Freeman MD (02/10/2018 9:41 AM) [facility]
--- NOTE | 2018-02-10 10:02 | PDOC ---
PROGRESS NOTES Chief Complaint Chief Complaint Acute hypoxic respiratory failure NOW IPPV (02/09/18) COPD, Smoker - 1 ppday? Severe sepsis - with respiratory failure likely 2/2 pneumonia/bronchitis, fever 102.6F, leukocytosis, tachycardia, Acute diastolic heart failure - BNP of greater than 35,000. diuresis for pulmonary congestion PAD - with carotid, AAA, renovascular disease - cont asa plavix NSTEMI - elevated troponin at 17. Paroxysmal atrial fibrillation. Now in sinus rhythm. on coumadin, INR subtherapeutic, History of a previous CVA - Acute metabolic encephalopathy secondary to multifactorial see above ANGELICA, VMN - new (02/10/18) History of Present Illness History of Present Illness Got worse Needed intubation yesterday 02/09/18 Was on BiPAP the day before with strict nothing by mouth, but respiratory status got worse Now also on levophed at 9 mics Troponin 30 peaked at 40 on heparin drip with cardiology on case - Creatinine 2.1 with a potassium 3.2 Was a smoker Plan: Vent per pulmonary Heparin drip per cardiology Consult renal regarding the creatinine/ANGELICA in this ICU patient Overall prognosis guarded discussed with pulmonary and MEASUREMENT SPECIALIST Start tube feeds-OGT -nutrition consult cc 30 Vitals Vitals Vital Signs Date Time Temp Pulse Resp B/P (MAP) Pulse Ox O2 Delivery O2 Flow Rate FiO2 02/10/18 09:44 98 Ventilator 02/10/18 07:21 25 02/10/18 06:00 102 108/64 (79) 02/10/18 04:00 98.5 98.5 Physical Exam Physical Exam GENERAL: Intubated and sedated HEENT: Pupils equally round & reactive. ETT, OGT LUNGS: Clear to auscultation. HEART: S1, S2. ABDOMEN: Obese, soft. No grimace or guarding to palpation. Bowel sounds present. GENITOURINARY: Indwelling Forman in place. EXTREMITIES: Trace edema in lower extremities bilaterally. No cyanosis. SKIN: Warm without rash. NEUROLOGIC: Unresponsive/sedated PIVs ok General: mild distress Heart: Regular rate, Normal S1, Normal S2, Other (regular rhythm with a rate of 108) Lungs: Clear Abdomen: Normal bowel sounds Extremities: No clubbing, No cyanosis, No edema, Normal pulses, No tenderness/ swelling Skin: No rashes, No breakdown, No significant lesion Labs LABS Laboratory Tests Test 02/09/18 10:55 02/09/18 12:46 02/09/18 14:13 02/09/18 22:00 Urine Collection Type Unknown Urine Color Yellow Urine Clarity Cloudy Urine pH 5.5 Urine Specific [place]kins 1.025 Urine Protein 100 mg/dL (NEG-TRACE) Urine Glucose (UA) Negative mg/dL (NEG) Urine Ketones (Stick) Negative mg/dL (NEG) Urine Blood Moderate (NEG) Urine Nitrite Negative (NEG) Urine Bilirubin Negative (NEG) Urine Urobilinogen Dipstick 0.2 mg/dL (0.2 mg/dL) Urine Leukocyte Esterase Negative (NEG) Urine RBC 0 /HPF (0-2) Urine WBC 1-4 /HPF (0-4) Urine Squamous Epithelial Cells Few /LPF Urine Bacteria 0 /HPF (0-FEW) O2 Saturation 94 % (92-99) 79 % (92-99) Arterial Blood pH 7.50 (7.35-7.45) 7.27 (7.35-7.45) Arterial Blood pCO2 at Patient Temp 30 mmHg (35-46) 52 mmHg (35-46) Arterial Blood pO2 at Patient Temp 71 mmHg (65-108) 51 mmHg (65-108) Arterial Blood HCO3 23 mmol/L (21-28) 24 mmol/L (21-28) Arterial Blood Base Excess 0 mmol/L (-3-3) -4 mmol/L (-3-3) FiO2 40 100 Heparin Anti-Xa Act, Unfractionated 0.49 IU/mL (0.30-0.70) Test 02/10/18 05:15 02/10/18 08:41 White Blood Count 8.4 x10^3/uL (4.0-11.0) Red Blood Count 4.39 x10^6/uL (3.50-5.40) Hemoglobin 13.4 g/dL (12.0-15.5) Hematocrit 39.8 % (36.0-47.0) Mean Corpuscular Volume 91 fL (79-100) Mean Corpuscular Hemoglobin 31 pg (25-35) Mean Corpuscular Hemoglobin Concent 34 g/dL (31-37) Red Cell Distribution Width 17.4 % (11.5-14.5) Platelet Count 199 x10^3/uL (140-400) Neutrophils (%) (Auto) 82 % (31-73) Lymphocytes (%) (Auto) 14 % (24-48) Monocytes (%) (Auto) 3 % (0-9) Eosinophils (%) (Auto) 0 % (0-3) Basophils (%) (Auto) 1 % (0-3) Neutrophils # (Auto) 6.9 x10^3uL (1.8-7.7) Lymphocytes # (Auto) 1.2 x10^3/uL (1.0-4.8) Monocytes # (Auto) 0.3 x10^3/uL (0.0-1.1) Eosinophils # (Auto) 0.0 x10^3/uL (0.0-0.7) Basophils # (Auto) 0.1 x10^3/uL (0.0-0.2) Heparin Anti-Xa Act, Unfractionated 0.72 IU/mL (0.30-0.70) Sodium Level 144 mmol/L (136-145) Potassium Level 3.2 mmol/L (3.5-5.1) Chloride Level 104 mmol/L (98-107) Carbon Dioxide Level 27 mmol/L (21-32) Anion Gap 13 (6-14) Blood Urea Nitrogen 45 mg/dL (7-20) Creatinine 2.1 mg/dL (0.6-1.0) Estimated GFR (Cockcroft-Gault) 23.6 BUN/Creatinine Ratio 21 (6-20) Glucose Level 114 mg/dL (70-99) Calcium Level 7.9 mg/dL (8.5-10.1) Magnesium Level 2.2 mg/dL (1.8-2.4) Total Bilirubin 0.3 mg/dL (0.2-1.0) Aspartate Amino Transf (AST/SGOT) 187 U/L (15-37) Alanine Aminotransferase (ALT/SGPT) 34 U/L (14-59) Alkaline Phosphatase 52 U/L (46-116) Troponin I Quantitative 44.560 ng/mL (0.000-0.055) Total Protein 6.2 g/dL (6.4-8.2) Albumin 2.7 g/dL (3.4-5.0) Albumin/Globulin Ratio 0.8 (1.0-1.7) O2 Saturation 98 % (92-99) Arterial Blood pH 7.44 (7.35-7.45) Arterial Blood pCO2 at Patient Temp 35 mmHg (35-46) Arterial Blood pO2 at Patient Temp 115 mmHg (65-108) Arterial Blood HCO3 23 mmol/L (21-28) Arterial Blood Base Excess -1 mmol/L (-3-3) FiO2 70 Review of Systems Review of Systems Intubated sedated Assessment and Plan Assessmemt and Plan Problems Medical Problems: (1) CHF (congestive heart failure) Status: Acute (2) Elevated troponin Status: Acute (3) Heart failure Status: Acute (4) Respiratory failure Status: Acute (5) Shortness of breath Status: Acute Comment Review of Relevant I have reviewed the following items pat (where applicable) has been applied. Labs Laboratory Tests Test 02/08/18 15:44 02/08/18 16:40 02/08/18 17:10 02/08/18 20:00 White Blood Count 14.2 x10^3/uL (4.0-11.0) Red Blood Count 4.32 x10^6/uL (3.50-5.40) Hemoglobin 13.2 g/dL (12.0-15.5) Hematocrit 39.1 % (36.0-47.0) Mean Corpuscular Volume 91 fL (79-100) Mean Corpuscular Hemoglobin 31 pg (25-35) Mean Corpuscular Hemoglobin Concent 34 g/dL (31-37) Red Cell Distribution Width 17.1 % (11.5-14.5) Platelet Count 279 x10^3/uL (140-400) Neutrophils (%) (Auto) 79 % (31-73) Lymphocytes (%) (Auto) 14 % (24-48) Monocytes (%) (Auto) 7 % (0-9) Eosinophils (%) (Auto) 0 % (0-3) Basophils (%) (Auto) 1 % (0-3) Neutrophils # (Auto) 11.2 x10^3uL (1.8-7.7) Lymphocytes # (Auto) 2.0 x10^3/uL (1.0-4.8) Monocytes # (Auto) 1.0 x10^3/uL (0.0-1.1) Eosinophils # (Auto) 0.0 x10^3/uL (0.0-0.7) Basophils # (Auto) 0.1 x10^3/uL (0.0-0.2) Prothrombin Time 16.8 SEC (11.7-14.0) Prothromb Time International Ratio 1.4 (0.8-1.1) Activated Partial Thromboplast Time 37 SEC (24-38) Sodium Level 135 mmol/L (136-145) Potassium Level 4.1 mmol/L (3.5-5.1) Chloride Level 97 mmol/L (98-107) Carbon Dioxide Level 24 mmol/L (21-32) Anion Gap 14 (6-14) Blood Urea Nitrogen 17 mg/dL (7-20) Creatinine 1.4 mg/dL (0.6-1.0) Estimated GFR (Cockcroft-Gault) 37.6 Glucose Level 185 mg/dL (70-99) Lactic Acid Level 3.6 mmol/L (0.4-2.0) Calcium Level 9.1 mg/dL (8.5-10.1) Total Bilirubin 0.3 mg/dL (0.2-1.0) Direct Bilirubin 0.1 mg/dL (0.0-0.2) Aspartate Amino Transf (AST/SGOT) 86 U/L (15-37) Alanine Aminotransferase (ALT/SGPT) 23 U/L (14-59) Alkaline Phosphatase 70 U/L (46-116) Troponin I Quantitative 17.772 ng/mL (0.000-0.055) 18.859 ng/mL (0.000-0.055) TA-Nax-O-Type Natriuretic Peptide > 42100 pg/mL (0-124) Total Protein 7.7 g/dL (6.4-8.2) Albumin 3.2 g/dL (3.4-5.0) Lipase 46 U/L (73-393) O2 Saturation 93 % (92-99) Arterial Blood pH 7.48 (7.35-7.45) Arterial Blood pCO2 at Patient Temp 32 mmHg (35-46) Arterial Blood pO2 at Patient Temp 67 mmHg (65-108) Arterial Blood HCO3 23 mmol/L (21-28) Arterial Blood Base Excess 0 mmol/L (-3-3) Oxyhemoglobin 91.6 % Methemoglobin 0.1 % (0.0-1.9) Carbon Monoxide, Quantitative 1.3 % (0.0-1.9) FiO2 50 Magnesium Level 1.5 mg/dL (1.8-2.4) Nasal Screen MRSA (PCR) Negative (Negative) Test 02/08/18 21:30 02/08/18 22:10 02/09/18 00:40 02/09/18 05:00 Lactic Acid Level 1.4 mmol/L (0.4-2.0) Influenza Type A Antigen Negative (NEGATIVE) Influenza Type B Antigen Negative (NEGATIVE) Heparin Anti-Xa Act, Unfractionated 0.77 IU/mL (0.30-0.70) White Blood Count 8.2 x10^3/uL (4.0-11.0) Red Blood Count 3.79 x10^6/uL (3.50-5.40) Hemoglobin 11.6 g/dL (12.0-15.5) Hematocrit 34.1 % (36.0-47.0) Mean Corpuscular Volume 90 fL (79-100) Mean Corpuscular Hemoglobin 31 pg (25-35) Mean Corpuscular Hemoglobin Concent 34 g/dL (31-37) Red Cell Distribution Width 16.4 % (11.5-14.5) Platelet Count 203 x10^3/uL (140-400) Creatinine 1.3 mg/dL (0.6-1.0) Estimated GFR (Cockcroft-Gault) 41.0 Troponin I Quantitative 30.211 ng/mL (0.000-0.055) Test 02/09/18 06:35 02/09/18 10:55 02/09/18 12:46 02/09/18 14:13 Heparin Anti-Xa Act, Unfractionated 0.47 IU/mL (0.30-0.70) 0.49 IU/mL (0.30-0.70) Urine Collection Type Unknown Urine Color Yellow Urine Clarity Cloudy Urine pH 5.5 Urine Specific Boykins 1.025 Urine Protein 100 mg/dL (NEG-TRACE) Urine Glucose (UA) Negative mg/dL (NEG) Urine Ketones (Stick) Negative mg/dL (NEG) Urine Blood Moderate (NEG) Urine Nitrite Negative (NEG) Urine Bilirubin Negative (NEG) Urine Urobilinogen Dipstick 0.2 mg/dL (0.2 mg/dL) Urine Leukocyte Esterase Negative (NEG) Urine RBC 0 /HPF (0-2) Urine WBC 1-4 /HPF (0-4) Urine Squamous Epithelial Cells Few /LPF Urine Bacteria 0 /HPF (0-FEW) O2 Saturation 94 % (92-99) Arterial Blood pH 7.50 (7.35-7.45) Arterial Blood pCO2 at Patient Temp 30 mmHg (35-46) Arterial Blood pO2 at Patient Temp 71 mmHg (65-108) Arterial Blood HCO3 23 mmol/L (21-28) Arterial Blood Base Excess 0 mmol/L (-3-3) FiO2 40 Test 02/09/18 22:00 02/10/18 05:15 02/10/18 08:41 O2 Saturation 79 % (92-99) 98 % (92-99) Arterial Blood pH 7.27 (7.35-7.45) 7.44 (7.35-7.45) Arterial Blood pCO2 at Patient Temp 52 mmHg (35-46) 35 mmHg (35-46) Arterial Blood pO2 at Patient Temp 51 mmHg (65-108) 115 mmHg (65-108) Arterial Blood HCO3 24 mmol/L (21-28) 23 mmol/L (21-28) Arterial Blood Base Excess -4 mmol/L (-3-3) -1 mmol/L (-3-3) FiO2 100 70 White Blood Count 8.4 x10^3/uL (4.0-11.0) Red Blood Count 4.39 x10^6/uL (3.50-5.40) Hemoglobin 13.4 g/dL (12.0-15.5) Hematocrit 39.8 % (36.0-47.0) Mean Corpuscular Volume 91 fL (79-100) Mean Corpuscular Hemoglobin 31 pg (25-35) Mean Corpuscular Hemoglobin Concent 34 g/dL (31-37) Red Cell Distribution Width 17.4 % (11.5-14.5) Platelet Count 199 x10^3/uL (140-400) Neutrophils (%) (Auto) 82 % (31-73) Lymphocytes (%) (Auto) 14 % (24-48) Monocytes (%) (Auto) 3 % (0-9) Eosinophils (%) (Auto) 0 % (0-3) Basophils (%) (Auto) 1 % (0-3) Neutrophils # (Auto) 6.9 x10^3uL (1.8-7.7) Lymphocytes # (Auto) 1.2 x10^3/uL (1.0-4.8) Monocytes # (Auto) 0.3 x10^3/uL (0.0-1.1) Eosinophils # (Auto) 0.0 x10^3/uL (0.0-0.7) Basophils # (Auto) 0.1 x10^3/uL (0.0-0.2) Heparin Anti-Xa Act, Unfractionated 0.72 IU/mL (0.30-0.70) Sodium Level 144 mmol/L (136-145) Potassium Level 3.2 mmol/L (3.5-5.1) Chloride Level 104 mmol/L (98-107) Carbon Dioxide Level 27 mmol/L (21-32) Anion Gap 13 (6-14) Blood Urea Nitrogen 45 mg/dL (7-20) Creatinine 2.1 mg/dL (0.6-1.0) Estimated GFR (Cockcroft-Gault) 23.6 BUN/Creatinine Ratio 21 (6-20) Glucose Level 114 mg/dL (70-99) Calcium Level 7.9 mg/dL (8.5-10.1) Magnesium Level 2.2 mg/dL (1.8-2.4) Total Bilirubin 0.3 mg/dL (0.2-1.0) Aspartate Amino Transf (AST/SGOT) 187 U/L (15-37) Alanine Aminotransferase (ALT/SGPT) 34 U/L (14-59) Alkaline Phosphatase 52 U/L (46-116) Troponin I Quantitative 44.560 ng/mL (0.000-0.055) Total Protein 6.2 g/dL (6.4-8.2) Albumin 2.7 g/dL (3.4-5.0) Albumin/Globulin Ratio 0.8 (1.0-1.7) Laboratory Tests Test 02/09/18 10:55 02/09/18 12:46 02/09/18 14:13 02/09/18 22:00 Urine Collection Type Unknown Urine Color Yellow Urine Clarity Cloudy Urine pH 5.5 Urine Specific Boykins 1.025 Urine Protein 100 mg/dL (NEG-TRACE) Urine Glucose (UA) Negative mg/dL (NEG) Urine Ketones (Stick) Negative mg/dL (NEG) Urine Blood Moderate (NEG) Urine Nitrite Negative (NEG) Urine Bilirubin Negative (NEG) Urine Urobilinogen Dipstick 0.2 mg/dL (0.2 mg/dL) Urine Leukocyte Esterase Negative (NEG) Urine RBC 0 /HPF (0-2) Urine WBC 1-4 /HPF (0-4) Urine Squamous Epithelial Cells Few /LPF Urine Bacteria 0 /HPF (0-FEW) O2 Saturation 94 % (92-99) 79 % (92-99) Arterial Blood pH 7.50 (7.35-7.45) 7.27 (7.35-7.45) Arterial Blood pCO2 at Patient Temp 30 mmHg (35-46) 52 mmHg (35-46) Arterial Blood pO2 at Patient Temp 71 mmHg (65-108) 51 mmHg (65-108) Arterial Blood HCO3 23 mmol/L (21-28) 24 mmol/L (21-28) Arterial Blood Base Excess 0 mmol/L (-3-3) -4 mmol/L (-3-3) FiO2 40 100 Heparin Anti-Xa Act, Unfractionated 0.49 IU/mL (0.30-0.70) Test 02/10/18 05:15 02/10/18 08:41 White Blood Count 8.4 x10^3/uL (4.0-11.0) Red Blood Count 4.39 x10^6/uL (3.50-5.40) Hemoglobin 13.4 g/dL (12.0-15.5) Hematocrit 39.8 % (36.0-47.0) Mean Corpuscular Volume 91 fL (79-100) Mean Corpuscular Hemoglobin 31 pg (25-35) Mean Corpuscular Hemoglobin Concent 34 g/dL (31-37) Red Cell Distribution Width 17.4 % (11.5-14.5) Platelet Count 199 x10^3/uL (140-400) Neutrophils (%) (Auto) 82 % (31-73) Lymphocytes (%) (Auto) 14 % (24-48) Monocytes (%) (Auto) 3 % (0-9) Eosinophils (%) (Auto) 0 % (0-3) Basophils (%) (Auto) 1 % (0-3) Neutrophils # (Auto) 6.9 x10^3uL (1.8-7.7) Lymphocytes # (Auto) 1.2 x10^3/uL (1.0-4.8) Monocytes # (Auto) 0.3 x10^3/uL (0.0-1.1) Eosinophils # (Auto) 0.0 x10^3/uL (0.0-0.7) Basophils # (Auto) 0.1 x10^3/uL (0.0-0.2) Heparin Anti-Xa Act, Unfractionated 0.72 IU/mL (0.30-0.70) Sodium Level 144 mmol/L (136-145) Potassium Level 3.2 mmol/L (3.5-5.1) Chloride Level 104 mmol/L (98-107) Carbon Dioxide Level 27 mmol/L (21-32) Anion Gap 13 (6-14) Blood Urea Nitrogen 45 mg/dL (7-20) Creatinine 2.1 mg/dL (0.6-1.0) Estimated GFR (Cockcroft-Gault) 23.6 BUN/Creatinine Ratio 21 (6-20) Glucose Level 114 mg/dL (70-99) Calcium Level 7.9 mg/dL (8.5-10.1) Magnesium Level 2.2 mg/dL (1.8-2.4) Total Bilirubin 0.3 mg/dL (0.2-1.0) Aspartate Amino Transf (AST/SGOT) 187 U/L (15-37) Alanine Aminotransferase (ALT/SGPT) 34 U/L (14-59) Alkaline Phosphatase 52 U/L (46-116) Troponin I Quantitative 44.560 ng/mL (0.000-0.055) Total Protein 6.2 g/dL (6.4-8.2) Albumin 2.7 g/dL (3.4-5.0) Albumin/Globulin Ratio 0.8 (1.0-1.7) O2 Saturation 98 % (92-99) Arterial Blood pH 7.44 (7.35-7.45) Arterial Blood pCO2 at Patient Temp 35 mmHg (35-46) Arterial Blood pO2 at Patient Temp 115 mmHg (65-108) Arterial Blood HCO3 23 mmol/L (21-28) Arterial Blood Base Excess -1 mmol/L (-3-3) FiO2 70 Medications Current Medications Albuterol/ Ipratropium (Duoneb) 3 ml 1X ONCE NEB Last administered on at 17:14; Start 02/08/18 at 16:00; Stop 02/08/18 at 16:01; Status DC Vancomycin HCl (Vanco Per Pharmacy) 1 each PRN DAILY PRN MC SEE COMMENTS Last administered on 02/09/18at 08:59; Start 02/08/18 at 16:15; Stop 02/10/18 at 09 :07; Status DC Piperacillin Sod/ Tazobactam Sod (Zosyn Per Pharmacy) 1 each PRN DAILY PRN MC SEE COMMENTS; Start 02/08/18 at 16:15 Vancomycin HCl 1.75 gm/Sodium Chloride 500 ml @ 250 mls/hr 1X ONCE IV Last administered on 02/08/18at 16:36; Start 02/08/18 at 17:00; Stop 02/08/18 at 18 :59; Status DC Piperacillin Sod/ Tazobactam Sod 3.375 gm/Sodium Chloride 50 ml @ 100 mls/hr 1X ONCE IV Last administered on 02/08/18at 16:36; Start 02/08/18 at 16:30; Stop 02/08/18 at 16:59; Status DC Furosemide (Lasix) 20 mg 1X ONCE IVP Last administered on 02/08/18at 16:36; Start 02/08/18 at 16:30; Stop 02/08/18 at 16:31; Status DC Aspirin (Children'S Aspirin) 324 mg 1X ONCE PO Last administered on at 16:36; Start 02/08/18 at 16:30; Stop 02/08/18 at 16:31; Status DC Furosemide (Lasix) 20 mg 1X ONCE IVP Last administered on 02/08/18at 18:07; Start 02/08/18 at 17:00; Stop 02/08/18 at 17:01; Status DC Ondansetron HCl (Zofran) 4 mg 1X ONCE IV Last administered on 02/08/18at 17:00 ; Start 02/08/18 at 17:00; Stop 02/08/18 at 17:01; Status DC Ondansetron HCl (Zofran) 4 mg STK-MED ONCE .ROUTE ; Start 02/08/18 at 16:51; Stop 02/08/18 at 16:52; Status DC Heparin Sodium/ Dextrose 500 ml @ 0 mls/hr CONT PRN IV SEE I/O RECORD; Start 02/08/18 at 17:30; Status UNV Info (Anti-Coagulation Monitoring By Pharmacy) 1 each PRN DAILY PRN MC SEE COMMENTS Last administered on 02/09/18at 09:00; Start 02/08/18 at 17:30 Heparin Sodium/ Dextrose 500 ml @ 0 mls/hr CONT PRN IV SEE I/O RECORD Last administered on 02/10/18at 00:59; Start 02/08/18 at 17:30 Heparin Sodium (Porcine) (Heparin Sodium) 1,800 unit PRN Q6HRS PRN IV FOR UFH LEVEL LESS THAN 0.2 Last administered on 02/08/18at 20:10; Start 02/08/18 at 17 :30 Ondansetron HCl (Zofran) 4 mg 1X PRN PRN IV NAUSEA/VOMITING; Start 02/08/18 at 18:00; Stop 02/09/18 at 09:06; Status DC Piperacillin Sod/ Tazobactam Sod 3.375 gm/Sodium Chloride 50 ml @ 100 mls/hr Q6HRS IV Last administered on 02/10/18at 06:04; Start 02/09/18 at 00:00 Vancomycin HCl 1 gm/Sodium Chloride 250 ml @ 250 mls/hr Q24H IV Last administered on 02/09/18at 16:30; Start 02/09/18 at 16:30; Stop 02/10/18 at 09 :07; Status DC Vancomycin HCl (Vancomycin Trough Level) 1 each 1X ONCE MC ; Start 02/10/18 at 16:00; Stop 02/10/18 at 16:00; Status DC Magnesium Sulfate/ Dextrose 100 ml @ 25 mls/hr 1X ONCE IV Last administered on 02/08/18at 22:03; Start 02/08/18 at 22:00; Stop 02/09/18 at 01:59; Status DC Aspirin (Radha Aspirin) 325 mg DAILY PO ; Start 02/09/18 at 09:00; Stop at 10:16; Status DC Atorvastatin Calcium (Lipitor) 10 mg HS PO ; Start 02/09/18 at 21:00; Stop at 21:00; Status DC Clonidine HCl (Catapres) 0.1 mg QHS PO Last administered on 02/08/18at 22:05; Start 02/08/18 at 22:00; Stop 02/09/18 at 10:16; Status DC Docusate Sodium (Colace) 100 mg BID PO ; Start 02/09/18 at 09:00; Stop at 10:16; Status DC Gabapentin (Neurontin) 300 mg TID PO Last administered on 02/08/18at 22:08; Start 02/08/18 at 22:20; Stop 02/09/18 at 10:16; Status DC Labetalol HCl (Normodyne Iv Push) 10 mg PRN Q2HR PRN IVP HYPERTENSION, SEE COMMENTS Last administered on 02/09/18at 18:06; Start 02/08/18 at 21:30 Lorazepam (Ativan) 1 mg PRN Q4HRS PRN IV ANXIETY / AGITATION Last administered on 02/09/18at 01:49; Start 02/08/18 at 21:30 Morphine Sulfate (Morphine Sulfate) 4 mg PRN Q4HRS PRN IV PAIN Last administered on 02/09/18at 19:45; Start 02/08/18 at 21:30 Acetaminophen (Tylenol Supp) 325 mg PRN Q6HRS PRN UT MILD PAIN / TEMP Last administered on 02/09/18at 09:30; Start 02/09/18 at 06:45 Ipratropium [place] (Atrovent) 0.5 mg RTQID NEB Last administered on at 08:50; Start 02/09/18 at 08:00 Budesonide (Pulmicort) 0.5 mg RTBID NEB Last administered on 02/09/18at 20:51; Start 02/09/18 at 08:00 Famotidine (Pepcid Vial) 20 mg QHS IVP Last administered on 02/09/18at 23:53; Start 02/09/18 at 21:00 Acetaminophen (Tylenol) 500 mg PRN Q6HRS PRN PO FEVER/KUO; Start 02/09/18 at 09 :00 Ondansetron HCl (Zofran) 4 mg PRN Q6HRS PRN IV NAUSEA/VOMITING; Start at 09:00 Ondansetron HCl (Zofran Odt) 4 mg PRN Q6HRS PRN PO NAUSEA/VOMITING; Start at 09:00 Acetaminophen/ Hydrocodone Bitart (Lortab 10/325) 1 tab PRN Q4HRS PRN PO MODERATE PAIN; Start 02/09/18 at 09:00 Magnesium Hydroxide (Milk Of Magnesia) 400 mg DAILY PO ; Start 02/09/18 at 09: 00 Oxycodone HCl (OxyCONTIN) 10 mg BID PO ; Start 02/09/18 at 09:00; Stop at 10:16; Status DC Oxycodone/ Acetaminophen (Percocet 5/325) 1 tab BID PO ; Start 02/09/18 at 09: 00; Stop 02/09/18 at 10:16; Status DC Tramadol HCl (Ultram) 50 mg PRN DAILY PRN PO MILD PAIN; Start 02/09/18 at 09: 00 Non-Formulary Medication (Acetaminophen ) 1 tab BID PO ; Start 02/09/18 at 09: 00; Stop 02/09/18 at 09:12; Status DC Non-Formulary Medication (Albuterol Sulfate (Albuterol Sulfate Neb Soln)) 1 vial QID NEB ; Start 02/09/18 at 09:00; Stop 02/09/18 at 09:22; Status DC Citalopram Hydrobromide (CeleXA) 40 mg QHS PO ; Start 02/09/18 at 21:00; Stop 02/09/18 at 21:00; Status DC Hydrochlorothiazide (Microzide) 12.5 mg QHS PO ; Start 02/09/18 at 21:00; Stop 02/09/18 at 21:00; Status DC Non-Formulary Medication (Magnesium Oxide ) 1 tab DAILY PO ; Start 02/09/18 at 09:00; Stop 02/09/18 at 09:14; Status DC Non-Formulary Medication (Multivitamin (Multivitamins)) 1 tab DAILY PO ; Start 02/09/18 at 09:00; Stop 02/09/18 at 09:14; Status DC Nicotine (Nicoderm Cq 14mg) 1 patch DAILY TD Last administered on 02/09/18at 09 :33; Start 02/09/18 at 10:00 Ondansetron HCl (Zofran Odt) 4 mg Q6HRS PO ; Start 02/09/18 at 12:00 Non-Formulary Medication (Polyethylene Glycol 3350 (Miralax)) 1 packet DAILY PO ; Start 02/09/18 at 09:00; Stop 02/09/18 at 09:17; Status DC Quetiapine Fumarate (SEROquel) 25 mg QHS PO ; Start 02/09/18 at 21:00; Stop at 21:00; Status DC Labetalol HCl (Normodyne Iv Push) 10 mg PRN Q2HR PRN IVP HYPERTENSION, SEE COMMENTS; Start 02/09/18 at 09:00; Stop 02/09/18 at 09:06; Status DC Acetaminophen (Tylenol) 500 mg BID PO ; Start 02/09/18 at 10:00; Stop at 10:16; Status DC Magnesium Oxide (Magnesium Oxide) 400 mg DAILY PO ; Start 02/09/18 at 10:00 Multivitamins (Thera M Plus) 1 tab DAILY PO ; Start 02/09/18 at 10:00; Stop at 10:16; Status DC Polyethylene Glycol (miraLAX PACKET) 17 gm DAILY PO ; Start 02/09/18 at 10:00; Stop 02/09/18 at 10:16; Status DC Albuterol Sulfate (Ventolin Neb Soln) 2.5 mg RTQID NEB ; Start 02/09/18 at 12: 00 Furosemide (Lasix) 60 mg 1X ONCE IVP Last administered on 02/09/18at 20:16; Start 02/09/18 at 20:00; Stop 02/09/18 at 20:01; Status DC Rocuronium [place] (Zemuron) 50 mg STK-MED ONCE .ROUTE ; Start 02/09/18 at 20: 23; Stop 02/09/18 at 20:24; Status DC Fentanyl Citrate 30 ml @ 0 mls/hr CONT PRN IV SEE PROTOCOL Last administered on 02/10/18at 07:21; Start 02/09/18 at 20:30 Propofol 100 ml @ 0 mls/hr CONT PRN IV SEE PROTOCOL Last administered on at 22:08; Start 02/09/18 at 20:30 Midazolam HCl 100 ml @ 5 mls/hr CONT PRN IV SEE I/O RECORD Last administered on 02/09/18at 22:09; Start 02/09/18 at 22:00 Norepinephrine Bitartrate 250 ml @ As Directed STK-MED ONCE IV ; Start at 02:33; Stop 02/10/18 at 02:35; Status DC Norepinephrine Bitartrate 250 ml @ 1.875 mls/ hr CONT PRN IV SEE I/O RECORD Last administered on 02/10/18at 03:30; Start 02/10/18 at 02:45 Methylprednisolone Sodium Succinate (SOLU-Medrol 40MG VIAL) 40 mg Q12HR IV ; Start 02/10/18 at 09:00 Active Scripts Active Percocet 5-325 Mg Tablet (Oxycodone/Acetaminophen) 1 Each Tablet 1 Tab PO BID 3 Days Reported Zofran (Ondansetron Hcl) 4 Mg Tablet 1 Tab PO Q6HRS Milk Of Magnesia (Magnesium Hydroxide) 400 Mg/5 Ml Oral.susp 400 Mg PO Acetaminophen 500 Mg Tablet 1 Tab PO BID Clonidine Hcl 0.1 Mg Tablet 1 Tab PO QHS Tramadol Hcl 50 Mg Tablet 50 Mg PO DAILY PRN Hydralazine Hcl 20 Mg/1 Ml Vial 20 Mg IJ Gabapentin (Gabapentin) 300 Mg Capsule 300 Mg PO TID Acidophilus (Lactobacillus Acidophilus) 1 Each Capsule 1 Each PO Atorvastatin Calcium 10 Mg Tablet 1 Tab PO DAILY Vitamin C (Ascorbic Acid) 500 Mg Tablet.er 500 Mg PO Aspirin 325 Mg Tablet 1 Tab PO DAILY Colace (Docusate Sodium) 100 Mg Capsule 1 Cap PO BID Magnesium Oxide 400 Mg Tablet 1 Tab PO DAILY Multivitamins (Multivitamin) 1 Each Tablet 1 Tab PO DAILY NICODERM CQ 14mg (Nicotine) 1 Each Patch.td24 1 Patch TP DAILY Miralax (Polyethylene Glycol 3350) 17 Gm Powd.pack 1 Packet PO DAILY Albuterol Sulfate Neb Soln (Albuterol Sulfate) 0.63 Mg/3 Ml Vial.neb 1 Vial NEB QID Prednisone 20 Mg Tablet 1 Tab PO DAILY Seroquel (Quetiapine Fumarate) 25 Mg Tablet 1 Tab PO QHS Hydrochlorothiazide Tablet (Hydrochlorothiazide) 12.5 Mg Tablet 1 Tab PO QHS Lexapro (Escitalopram Oxalate) 20 Mg Tablet 1 Tab PO QHS Hydrocodone-Apap 10-325 (Hydrocodone Bit/Acetaminophen) 1 Each Tablet 1 Tab PO PRN Q4HRS Oxycontin (Oxycodone HCl) 10 Mg Tab.er.12h 10 Mg PO BID Vitals/I & O Vital Sign - Last 24 Hours 02/09/18 02/09/18 02/09/18 02/09/18 10:00 10:47 11:00 11:23 Temp 99.8 99.8 Pulse 128 108 Resp 22 24 B/P (MAP) 160/91 (114) 128/78 (95) Pulse Ox 92 92 93 O2 Delivery BiPAP/CPAP BiPAP/CPAP BiPAP/CPAP 02/09/18 02/09/18 02/09/18 02/09/18 12:00 12:00 12:10 12:20 Pulse 96 98 108 Resp 24 24 24 B/P (MAP) 76/47 (57) 86/63 (71) 116/78 (91) Pulse Ox 92 92 97 O2 Delivery BiPAP/CPAP Bi-pap BiPAP/CPAP BiPAP/CPAP 02/09/18 02/09/18 02/09/18 02/09/18 13:00 14:00 15:00 15:06 Pulse 112 120 128 Resp 22 22 24 24 B/P (MAP) 141/88 (105) 152/91 (111) 157/95 (115) Pulse Ox 97 94 95 96 O2 Delivery BiPAP/CPAP BiPAP/CPAP BiPAP/CPAP BiPAP/CPAP 02/09/18 02/09/18 02/09/1818 15:19 16:00 16:00 17:00 Temp 98.8 98.8 Pulse 124 132 Resp 20 20 B/P (MAP) 153/95 (114) 155/86 (109) Pulse Ox 96 95 92 O2 Delivery BiPAP/CPAP Bi-pap BiPAP/CPAP BiPAP/CPAP 02/09/18 02/09/18 02/09/18 02/09/18 17:14 18:00 18:06 18:18 Pulse 139 137 101 Resp 20 24 B/P (MAP) 169/75 (106) 169/95 135/88 (104) Pulse Ox 96 90 O2 Delivery BiPAP/CPAP BiPAP/CPAP 02/09/18 02/09/18 02/09/18 02/09/18 19:45 20:00 20:00 20:15 Temp 99.8 99.8 Pulse 120 Resp 20 45 20 B/P (MAP) 168/116 (133) Pulse Ox 90 97 92 O2 Delivery BiPAP/CPAP BiPAP/CPAP Bi-pap Ventilator 02/09/18 02/09/18 02/09/18 02/09/18 21:00 21:32 22:00 22:05 Pulse 130 132 Resp 20 25 29 B/P (MAP) 145/96 (112) 119/75 (90) Pulse Ox 90 90 96 88 O2 Delivery Ventilator Ventilator BiPAP/CPAP Ventilator 02/09/18 02/09/18 02/09/18 02/10/18 23:00 23:42 23:59 00:00 Temp 99.5 99.5 Pulse 120 118 Resp 29 27 B/P (MAP) 96/72 (80) 85/60 (68) Pulse Ox 96 98 98 O2 Delivery BiPAP/CPAP Ventilator Mechanical Ventilator BiPAP/CPAP 02/10/18 02/10/18 02/10/18 02/10/18 01:00 02:00 03:00 03:34 Pulse 113 110 106 Resp 27 26 25 B/P (MAP) 105/54 (71) 90/60 (70) 63/49 (54) Pulse Ox 100 100 99 100 O2 Delivery BiPAP/CPAP BiPAP/CPAP BiPAP/CPAP Ventilator 02/10/18 02/10/18 02/10/18 02/10/18 03:45 04:00 04:00 04:15 Temp 98.5 98.5 Pulse 106 102 106 Resp 25 24 25 B/P (MAP) /54 93/61 (72) 103/68 (80) Pulse Ox 99 100 99 O2 Delivery BiPAP/CPAP Mechanical Ventilator BiPAP/CPAP BiPAP/CPAP 02/10/18 02/10/18 02/10/18 02/10/18 04:30 04:45 05:00 05:21 Pulse 106 106 104 Resp 25 25 24 B/P (MAP) 77/45 (56) 84/65 (71) 102/65 (77) Pulse Ox 99 99 100 100 O2 Delivery BiPAP/CPAP BiPAP/CPAP BiPAP/CPAP Ventilator 02/10/18 02/10/18 02/10/18 02/10/18 05:30 05:45 06:00 07:21 Pulse 104 104 102 Resp 24 24 21 25 B/P (MAP) /58 /64 108/64 (79) Pulse Ox 100 100 100 100 O2 Delivery BiPAP/CPAP BiPAP/CPAP BiPAP/CPAP Ventilator 02/10/18 02/10/18 08:36 09:44 Pulse Ox 100 98 O2 Delivery Ventilator Ventilator Intake and Output 02/09/18 02/09/18 02/10/18 15:00 23:00 07:00 Intake Total 0 ml 193 ml 264.6 ml Output Total 675 ml 850 ml 400 ml Balance -675 ml -657 ml -135.4 ml CAROLINA MOORE MD Feb 10, 2018 10:02
[2018-02-10 10:39] LABS: PLT ESTIMATE ADEQUATE (ADEQUATE)
--- NOTE | 2018-02-10 11:28 | PDOC ---
PROGRESS NOTES Subjective Subjective Patient seen and examined The patient was intubated overnight. Objective Objective Vital Signs Date Time Temp Pulse Resp B/P (MAP) Pulse Ox O2 Delivery O2 Flow Rate FiO2 02/10/18 09:44 98 Ventilator 02/10/18 09:00 101 98/69 (79) 02/10/18 07:21 25 02/10/18 07:00 99.8 99.8 Intake and Output 02/10/18 07:00 Intake Total 457.6 ml Output Total 1985 ml Balance -1527.4 ml Intake Oral 0 ml IV Total 457.6 ml Output Urine Total 1985 ml Physical Exam Abdomen: Normal bowel sounds Heart: Regular rate General: Other (intubated) Lungs: Other (decreased breath sounds) Assessment Assessment Problems Medical Problems: (1) CHF (congestive heart failure) Status: Acute (2) Elevated troponin Status: Acute (3) Heart failure Status: Acute (4) Respiratory failure Status: Acute (5) Shortness of breath Status: Acute 1. Acute hypoxic respiratory failure. Patient had refused intubation but changed her mind and was intubated overnight. Continuing as per the pulmonary service. 2. Acute diastolic heart failure. BNP of greater than 35,000. We'll attempt mild diuresis based on the patient's clinical course. However creatinine has elevated to 2.1. Renal has been consulted. Echocardiogram pending. Echocardiogram in August of this year shows intact LV systolic function. 3. Severe multi-region peripheral vascular disease as above. We'll continue on present treatments at this time. On heparin. 4. Non-ST elevated myocardial infarction. Peak troponin of 44. Echo as above. Creatinine now elevated to 2.1. At this time will continue on medical treatment. 5. History of paroxysmal atrial fibrillation. Now in sinus rhythm. We'll continue to monitor. 6. History of a previous CVA. Comment Review of Relevant I have reviewed the following items pat (where applicable) has been applied. Labs Laboratory Tests Test 02/08/18 15:44 02/08/18 16:40 02/08/18 17:10 02/08/18 20:00 White Blood Count 14.2 x10^3/uL (4.0-11.0) Red Blood Count 4.32 x10^6/uL (3.50-5.40) Hemoglobin 13.2 g/dL (12.0-15.5) Hematocrit 39.1 % (36.0-47.0) Mean Corpuscular Volume 91 fL (79-100) Mean Corpuscular Hemoglobin 31 pg (25-35) Mean Corpuscular Hemoglobin Concent 34 g/dL (31-37) Red Cell Distribution Width 17.1 % (11.5-14.5) Platelet Count 279 x10^3/uL (140-400) Neutrophils (%) (Auto) 79 % (31-73) Lymphocytes (%) (Auto) 14 % (24-48) Monocytes (%) (Auto) 7 % (0-9) Eosinophils (%) (Auto) 0 % (0-3) Basophils (%) (Auto) 1 % (0-3) Neutrophils # (Auto) 11.2 x10^3uL (1.8-7.7) Lymphocytes # (Auto) 2.0 x10^3/uL (1.0-4.8) Monocytes # (Auto) 1.0 x10^3/uL (0.0-1.1) Eosinophils # (Auto) 0.0 x10^3/uL (0.0-0.7) Basophils # (Auto) 0.1 x10^3/uL (0.0-0.2) Prothrombin Time 16.8 SEC (11.7-14.0) Prothromb Time International Ratio 1.4 (0.8-1.1) Activated Partial Thromboplast Time 37 SEC (24-38) Sodium Level 135 mmol/L (136-145) Potassium Level 4.1 mmol/L (3.5-5.1) Chloride Level 97 mmol/L (98-107) Carbon Dioxide Level 24 mmol/L (21-32) Anion Gap 14 (6-14) Blood Urea Nitrogen 17 mg/dL (7-20) Creatinine 1.4 mg/dL (0.6-1.0) Estimated GFR (Cockcroft-Gault) 37.6 Glucose Level 185 mg/dL (70-99) Lactic Acid Level 3.6 mmol/L (0.4-2.0) Calcium Level 9.1 mg/dL (8.5-10.1) Total Bilirubin 0.3 mg/dL (0.2-1.0) Direct Bilirubin 0.1 mg/dL (0.0-0.2) Aspartate Amino Transf (AST/SGOT) 86 U/L (15-37) Alanine Aminotransferase (ALT/SGPT) 23 U/L (14-59) Alkaline Phosphatase 70 U/L (46-116) Troponin I Quantitative 17.772 ng/mL (0.000-0.055) 18.859 ng/mL (0.000-0.055) PT-Dfm-B-Type Natriuretic Peptide > 09409 pg/mL (0-124) Total Protein 7.7 g/dL (6.4-8.2) Albumin 3.2 g/dL (3.4-5.0) Lipase 46 U/L (73-393) O2 Saturation 93 % (92-99) Arterial Blood pH 7.48 (7.35-7.45) Arterial Blood pCO2 at Patient Temp 32 mmHg (35-46) Arterial Blood pO2 at Patient Temp 67 mmHg (65-108) Arterial Blood HCO3 23 mmol/L (21-28) Arterial Blood Base Excess 0 mmol/L (-3-3) Oxyhemoglobin 91.6 % Methemoglobin 0.1 % (0.0-1.9) Carbon Monoxide, Quantitative 1.3 % (0.0-1.9) FiO2 50 Magnesium Level 1.5 mg/dL (1.8-2.4) Nasal Screen MRSA (PCR) Negative (Negative) Test 02/08/18 21:30 02/08/18 22:10 02/09/18 00:40 02/09/18 05:00 Lactic Acid Level 1.4 mmol/L (0.4-2.0) Influenza Type A Antigen Negative (NEGATIVE) Influenza Type B Antigen Negative (NEGATIVE) Heparin Anti-Xa Act, Unfractionated 0.77 IU/mL (0.30-0.70) White Blood Count 8.2 x10^3/uL (4.0-11.0) Red Blood Count 3.79 x10^6/uL (3.50-5.40) Hemoglobin 11.6 g/dL (12.0-15.5) Hematocrit 34.1 % (36.0-47.0) Mean Corpuscular Volume 90 fL (79-100) Mean Corpuscular Hemoglobin 31 pg (25-35) Mean Corpuscular Hemoglobin Concent 34 g/dL (31-37) Red Cell Distribution Width 16.4 % (11.5-14.5) Platelet Count 203 x10^3/uL (140-400) Creatinine 1.3 mg/dL (0.6-1.0) Estimated GFR (Cockcroft-Gault) 41.0 Troponin I Quantitative 30.211 ng/mL (0.000-0.055) Test 02/09/18 06:35 02/09/18 10:55 02/09/18 12:46 02/09/18 14:13 Heparin Anti-Xa Act, Unfractionated 0.47 IU/mL (0.30-0.70) 0.49 IU/mL (0.30-0.70) Urine Collection Type Unknown Urine Color Yellow Urine Clarity Cloudy Urine pH 5.5 Urine Specific [place] 1.025 Urine Protein 100 mg/dL (NEG-TRACE) Urine Glucose (UA) Negative mg/dL (NEG) Urine Ketones (Stick) Negative mg/dL (NEG) Urine Blood Moderate (NEG) Urine Nitrite Negative (NEG) Urine Bilirubin Negative (NEG) Urine Urobilinogen Dipstick 0.2 mg/dL (0.2 mg/dL) Urine Leukocyte Esterase Negative (NEG) Urine RBC 0 /HPF (0-2) Urine WBC 1-4 /HPF (0-4) Urine Squamous Epithelial Cells Few /LPF Urine Bacteria 0 /HPF (0-FEW) O2 Saturation 94 % (92-99) Arterial Blood pH 7.50 (7.35-7.45) Arterial Blood pCO2 at Patient Temp 30 mmHg (35-46) Arterial Blood pO2 at Patient Temp 71 mmHg (65-108) Arterial Blood HCO3 23 mmol/L (21-28) Arterial Blood Base Excess 0 mmol/L (-3-3) FiO2 40 Test 02/09/18 22:00 02/10/18 05:15 02/10/18 08:41 O2 Saturation 79 % (92-99) 98 % (92-99) Arterial Blood pH 7.27 (7.35-7.45) 7.44 (7.35-7.45) Arterial Blood pCO2 at Patient Temp 52 mmHg (35-46) 35 mmHg (35-46) Arterial Blood pO2 at Patient Temp 51 mmHg (65-108) 115 mmHg (65-108) Arterial Blood HCO3 24 mmol/L (21-28) 23 mmol/L (21-28) Arterial Blood Base Excess -4 mmol/L (-3-3) -1 mmol/L (-3-3) FiO2 100 70 White Blood Count 8.4 x10^3/uL (4.0-11.0) Red Blood Count 4.39 x10^6/uL (3.50-5.40) Hemoglobin 13.4 g/dL (12.0-15.5) Hematocrit 39.8 % (36.0-47.0) Mean Corpuscular Volume 91 fL (79-100) Mean Corpuscular Hemoglobin 31 pg (25-35) Mean Corpuscular Hemoglobin Concent 34 g/dL (31-37) Red Cell Distribution Width 17.4 % (11.5-14.5) Platelet Count 199 x10^3/uL (140-400) Neutrophils (%) (Auto) 82 % (31-73) Lymphocytes (%) (Auto) 14 % (24-48) Monocytes (%) (Auto) 3 % (0-9) Eosinophils (%) (Auto) 0 % (0-3) Basophils (%) (Auto) 1 % (0-3) Neutrophils # (Auto) 6.9 x10^3uL (1.8-7.7) Lymphocytes # (Auto) 1.2 x10^3/uL (1.0-4.8) Monocytes # (Auto) 0.3 x10^3/uL (0.0-1.1) Eosinophils # (Auto) 0.0 x10^3/uL (0.0-0.7) Basophils # (Auto) 0.1 x10^3/uL (0.0-0.2) Platelet Estimate Adequate (ADEQUATE) Large Platelets Present Heparin Anti-Xa Act, Unfractionated 0.72 IU/mL (0.30-0.70) Sodium Level 144 mmol/L (136-145) Potassium Level 3.2 mmol/L (3.5-5.1) Chloride Level 104 mmol/L (98-107) Carbon Dioxide Level 27 mmol/L (21-32) Anion Gap 13 (6-14) Blood Urea Nitrogen 45 mg/dL (7-20) Creatinine 2.1 mg/dL (0.6-1.0) Estimated GFR (Cockcroft-Gault) 23.6 BUN/Creatinine Ratio 21 (6-20) Glucose Level 114 mg/dL (70-99) Calcium Level 7.9 mg/dL (8.5-10.1) Magnesium Level 2.2 mg/dL (1.8-2.4) Total Bilirubin 0.3 mg/dL (0.2-1.0) Aspartate Amino Transf (AST/SGOT) 187 U/L (15-37) Alanine Aminotransferase (ALT/SGPT) 34 U/L (14-59) Alkaline Phosphatase 52 U/L (46-116) Troponin I Quantitative 44.560 ng/mL (0.000-0.055) Total Protein 6.2 g/dL (6.4-8.2) Albumin 2.7 g/dL (3.4-5.0) Albumin/Globulin Ratio 0.8 (1.0-1.7) Laboratory Tests Test 02/09/18 12:46 02/09/18 14:13 02/09/18 22:00 02/10/18 05:15 O2 Saturation 94 % (92-99) 79 % (92-99) Arterial Blood pH 7.50 (7.35-7.45) 7.27 (7.35-7.45) Arterial Blood pCO2 at Patient Temp 30 mmHg (35-46) 52 mmHg (35-46) Arterial Blood pO2 at Patient Temp 71 mmHg (65-108) 51 mmHg (65-108) Arterial Blood HCO3 23 mmol/L (21-28) 24 mmol/L (21-28) Arterial Blood Base Excess 0 mmol/L (-3-3) -4 mmol/L (-3-3) FiO2 40 100 Heparin Anti-Xa Act, Unfractionated 0.49 IU/mL (0.30-0.70) 0.72 IU/mL (0.30-0.70) White Blood Count 8.4 x10^3/uL (4.0-11.0) Red Blood Count 4.39 x10^6/uL (3.50-5.40) Hemoglobin 13.4 g/dL (12.0-15.5) Hematocrit 39.8 % (36.0-47.0) Mean Corpuscular Volume 91 fL (79-100) Mean Corpuscular Hemoglobin 31 pg (25-35) Mean Corpuscular Hemoglobin Concent 34 g/dL (31-37) Red Cell Distribution Width 17.4 % (11.5-14.5) Platelet Count 199 x10^3/uL (140-400) Neutrophils (%) (Auto) 82 % (31-73) Lymphocytes (%) (Auto) 14 % (24-48) Monocytes (%) (Auto) 3 % (0-9) Eosinophils (%) (Auto) 0 % (0-3) Basophils (%) (Auto) 1 % (0-3) Neutrophils # (Auto) 6.9 x10^3uL (1.8-7.7) Lymphocytes # (Auto) 1.2 x10^3/uL (1.0-4.8) Monocytes # (Auto) 0.3 x10^3/uL (0.0-1.1) Eosinophils # (Auto) 0.0 x10^3/uL (0.0-0.7) Basophils # (Auto) 0.1 x10^3/uL (0.0-0.2) Platelet Estimate Adequate (ADEQUATE) Large Platelets Present Sodium Level 144 mmol/L (136-145) Potassium Level 3.2 mmol/L (3.5-5.1) Chloride Level 104 mmol/L (98-107) Carbon Dioxide Level 27 mmol/L (21-32) Anion Gap 13 (6-14) Blood Urea Nitrogen 45 mg/dL (7-20) Creatinine 2.1 mg/dL (0.6-1.0) Estimated GFR (Cockcroft-Gault) 23.6 BUN/Creatinine Ratio 21 (6-20) Glucose Level 114 mg/dL (70-99) Calcium Level 7.9 mg/dL (8.5-10.1) Magnesium Level 2.2 mg/dL (1.8-2.4) Total Bilirubin 0.3 mg/dL (0.2-1.0) Aspartate Amino Transf (AST/SGOT) 187 U/L (15-37) Alanine Aminotransferase (ALT/SGPT) 34 U/L (14-59) Alkaline Phosphatase 52 U/L (46-116) Troponin I Quantitative 44.560 ng/mL (0.000-0.055) Total Protein 6.2 g/dL (6.4-8.2) Albumin 2.7 g/dL (3.4-5.0) Albumin/Globulin Ratio 0.8 (1.0-1.7) Test 02/10/18 08:41 O2 Saturation 98 % (92-99) Arterial Blood pH 7.44 (7.35-7.45) Arterial Blood pCO2 at Patient Temp 35 mmHg (35-46) Arterial Blood pO2 at Patient Temp 115 mmHg (65-108) Arterial Blood HCO3 23 mmol/L (21-28) Arterial Blood Base Excess -1 mmol/L (-3-3) FiO2 70 Medications Current Medications Albuterol/ Ipratropium (Duoneb) 3 ml 1X ONCE NEB Last administered on at 17:14; Start 02/08/18 at 16:00; Stop 02/08/18 at 16:01; Status DC Vancomycin HCl (Vanco Per Pharmacy) 1 each PRN DAILY PRN MC SEE COMMENTS Last administered on 02/09/18at 08:59; Start 02/08/18 at 16:15; Stop 02/10/18 at 09 :07; Status DC Piperacillin Sod/ Tazobactam Sod (Zosyn Per Pharmacy) 1 each PRN DAILY PRN MC SEE COMMENTS; Start 02/08/18 at 16:15 Vancomycin HCl 1.75 gm/Sodium Chloride 500 ml @ 250 mls/hr 1X ONCE IV Last administered on 02/08/18at 16:36; Start 02/08/18 at 17:00; Stop 02/08/18 at 18 :59; Status DC Piperacillin Sod/ Tazobactam Sod 3.375 gm/Sodium Chloride 50 ml @ 100 mls/hr 1X ONCE IV Last administered on 02/08/18at 16:36; Start 02/08/18 at 16:30; Stop 02/08/18 at 16:59; Status DC Furosemide (Lasix) 20 mg 1X ONCE IVP Last administered on 02/08/18at 16:36; Start 02/08/18 at 16:30; Stop 02/08/18 at 16:31; Status DC Aspirin (Children'S Aspirin) 324 mg 1X ONCE PO Last administered on at 16:36; Start 02/08/18 at 16:30; Stop 02/08/18 at 16:31; Status DC Furosemide (Lasix) 20 mg 1X ONCE IVP Last administered on 02/08/18at 18:07; Start 02/08/18 at 17:00; Stop 02/08/18 at 17:01; Status DC Ondansetron HCl (Zofran) 4 mg 1X ONCE IV Last administered on 02/08/18at 17:00 ; Start 02/08/18 at 17:00; Stop 02/08/18 at 17:01; Status DC Ondansetron HCl (Zofran) 4 mg STK-MED ONCE .ROUTE ; Start 02/08/18 at 16:51; Stop 02/08/18 at 16:52; Status DC Heparin Sodium/ Dextrose 500 ml @ 0 mls/hr CONT PRN IV SEE I/O RECORD; Start 02/08/18 at 17:30; Status UNV Info (Anti-Coagulation Monitoring By Pharmacy) 1 each PRN DAILY PRN MC SEE COMMENTS Last administered on 02/09/18at 09:00; Start 02/08/18 at 17:30 Heparin Sodium/ Dextrose 500 ml @ 0 mls/hr CONT PRN IV SEE I/O RECORD Last administered on 02/10/18at 00:59; Start 02/08/18 at 17:30 Heparin Sodium (Porcine) (Heparin Sodium) 1,800 unit PRN Q6HRS PRN IV FOR UFH LEVEL LESS THAN 0.2 Last administered on 02/08/18at 20:10; Start 02/08/18 at 17 :30 Ondansetron HCl (Zofran) 4 mg 1X PRN PRN IV NAUSEA/VOMITING; Start 02/08/18 at 18:00; Stop 02/09/18 at 09:06; Status DC Piperacillin Sod/ Tazobactam Sod 3.375 gm/Sodium Chloride 50 ml @ 100 mls/hr Q6HRS IV Last administered on 02/10/18at 06:04; Start 02/09/18 at 00:00 Vancomycin HCl 1 gm/Sodium Chloride 250 ml @ 250 mls/hr Q24H IV Last administered on 02/09/18at 16:30; Start 02/09/18 at 16:30; Stop 02/10/18 at 09 :07; Status DC Vancomycin HCl (Vancomycin Trough Level) 1 each 1X ONCE MC ; Start 02/10/18 at 16:00; Stop 02/10/18 at 16:00; Status DC Magnesium Sulfate/ Dextrose 100 ml @ 25 mls/hr 1X ONCE IV Last administered on 02/08/18at 22:03; Start 02/08/18 at 22:00; Stop 02/09/18 at 01:59; Status DC Aspirin (Radha Aspirin) 325 mg DAILY PO ; Start 02/09/18 at 09:00; Stop at 10:16; Status DC Atorvastatin Calcium (Lipitor) 10 mg HS PO ; Start 02/09/18 at 21:00; Stop at 21:00; Status DC Clonidine HCl (Catapres) 0.1 mg QHS PO Last administered on 02/08/18at 22:05; Start 02/08/18 at 22:00; Stop 02/09/18 at 10:16; Status DC Docusate Sodium (Colace) 100 mg BID PO ; Start 02/09/18 at 09:00; Stop at 10:16; Status DC Gabapentin (Neurontin) 300 mg TID PO Last administered on 02/08/18at 22:08; Start 02/08/18 at 22:20; Stop 02/09/18 at 10:16; Status DC Labetalol HCl (Normodyne Iv Push) 10 mg PRN Q2HR PRN IVP HYPERTENSION, SEE COMMENTS Last administered on 02/09/18at 18:06; Start 02/08/18 at 21:30 Lorazepam (Ativan) 1 mg PRN Q4HRS PRN IV ANXIETY / AGITATION Last administered on 02/09/18at 01:49; Start 02/08/18 at 21:30 Morphine Sulfate (Morphine Sulfate) 4 mg PRN Q4HRS PRN IV PAIN Last administered on 02/09/18at 19:45; Start 02/08/18 at 21:30 Acetaminophen (Tylenol Supp) 325 mg PRN Q6HRS PRN RI MILD PAIN / TEMP Last administered on 02/09/18at 09:30; Start 02/09/18 at 06:45 Ipratropium [place] (Atrovent) 0.5 mg RTQID NEB Last administered on at 08:50; Start 02/09/18 at 08:00 Budesonide (Pulmicort) 0.5 mg RTBID NEB Last administered on 02/09/18at 20:51; Start 02/09/18 at 08:00 Famotidine (Pepcid Vial) 20 mg QHS IVP Last administered on 02/09/18at 23:53; Start 02/09/18 at 21:00 Acetaminophen (Tylenol) 500 mg PRN Q6HRS PRN PO FEVER/KUO; Start 02/09/18 at 09 :00 Ondansetron HCl (Zofran) 4 mg PRN Q6HRS PRN IV NAUSEA/VOMITING; Start at 09:00 Ondansetron HCl (Zofran Odt) 4 mg PRN Q6HRS PRN PO NAUSEA/VOMITING; Start at 09:00 Acetaminophen/ Hydrocodone Bitart (Lortab 10/325) 1 tab PRN Q4HRS PRN PO MODERATE PAIN; Start 02/09/18 at 09:00 Magnesium Hydroxide (Milk Of Magnesia) 400 mg DAILY PO ; Start 02/09/18 at 09: 00 Oxycodone HCl (OxyCONTIN) 10 mg BID PO ; Start 02/09/18 at 09:00; Stop at 10:16; Status DC Oxycodone/ Acetaminophen (Percocet 5/325) 1 tab BID PO ; Start 02/09/18 at 09: 00; Stop 02/09/18 at 10:16; Status DC Tramadol HCl (Ultram) 50 mg PRN DAILY PRN PO MILD PAIN; Start 02/09/18 at 09: 00 Non-Formulary Medication (Acetaminophen ) 1 tab BID PO ; Start 02/09/18 at 09: 00; Stop 02/09/18 at 09:12; Status DC Non-Formulary Medication (Albuterol Sulfate (Albuterol Sulfate Neb Soln)) 1 vial QID NEB ; Start 02/09/18 at 09:00; Stop 02/09/18 at 09:22; Status DC Citalopram Hydrobromide (CeleXA) 40 mg QHS PO ; Start 02/09/18 at 21:00; Stop 02/09/18 at 21:00; Status DC Hydrochlorothiazide (Microzide) 12.5 mg QHS PO ; Start 02/09/18 at 21:00; Stop 02/09/18 at 21:00; Status DC Non-Formulary Medication (Magnesium Oxide ) 1 tab DAILY PO ; Start 02/09/18 at 09:00; Stop 02/09/18 at 09:14; Status DC Non-Formulary Medication (Multivitamin (Multivitamins)) 1 tab DAILY PO ; Start 02/09/18 at 09:00; Stop 02/09/18 at 09:14; Status DC Nicotine (Nicoderm Cq 14mg) 1 patch DAILY TD Last administered on 02/09/18at 09 :33; Start 02/09/18 at 10:00 Ondansetron HCl (Zofran Odt) 4 mg Q6HRS PO ; Start 02/09/18 at 12:00 Non-Formulary Medication (Polyethylene Glycol 3350 (Miralax)) 1 packet DAILY PO ; Start 02/09/18 at 09:00; Stop 02/09/18 at 09:17; Status DC Quetiapine Fumarate (SEROquel) 25 mg QHS PO ; Start 02/09/18 at 21:00; Stop at 21:00; Status DC Labetalol HCl (Normodyne Iv Push) 10 mg PRN Q2HR PRN IVP HYPERTENSION, SEE COMMENTS; Start 02/09/18 at 09:00; Stop 02/09/18 at 09:06; Status DC Acetaminophen (Tylenol) 500 mg BID PO ; Start 02/09/18 at 10:00; Stop at 10:16; Status DC Magnesium Oxide (Magnesium Oxide) 400 mg DAILY PO ; Start 02/09/18 at 10:00 Multivitamins (Thera M Plus) 1 tab DAILY PO ; Start 02/09/18 at 10:00; Stop at 10:16; Status DC Polyethylene Glycol (miraLAX PACKET) 17 gm DAILY PO ; Start 02/09/18 at 10:00; Stop 02/09/18 at 10:16; Status DC Albuterol Sulfate (Ventolin Neb Soln) 2.5 mg RTQID NEB ; Start 02/09/18 at 12: 00 Furosemide (Lasix) 60 mg 1X ONCE IVP Last administered on 02/09/18at 20:16; Start 02/09/18 at 20:00; Stop 02/09/18 at 20:01; Status DC Rocuronium [place] (Zemuron) 50 mg STK-MED ONCE .ROUTE ; Start 02/09/18 at 20: 23; Stop 02/09/18 at 20:24; Status DC Fentanyl Citrate 30 ml @ 0 mls/hr CONT PRN IV SEE PROTOCOL Last administered on 02/10/18at 07:21; Start 02/09/18 at 20:30 Propofol 100 ml @ 0 mls/hr CONT PRN IV SEE PROTOCOL Last administered on at 22:08; Start 02/09/18 at 20:30 Midazolam HCl 100 ml @ 5 mls/hr CONT PRN IV SEE I/O RECORD Last administered on 02/09/18at 22:09; Start 02/09/18 at 22:00 Norepinephrine Bitartrate 250 ml @ As Directed STK-MED ONCE IV ; Start at 02:33; Stop 02/10/18 at 02:35; Status DC Norepinephrine Bitartrate 250 ml @ 1.875 mls/ hr CONT PRN IV SEE I/O RECORD Last administered on 02/10/18at 03:30; Start 02/10/18 at 02:45 Methylprednisolone Sodium Succinate (SOLU-Medrol 40MG VIAL) 40 mg Q12HR IV ; Start 02/10/18 at 09:00 Active Scripts Active Percocet 5-325 Mg Tablet (Oxycodone/Acetaminophen) 1 Each Tablet 1 Tab PO BID 3 Days Reported Zofran (Ondansetron Hcl) 4 Mg Tablet 1 Tab PO Q6HRS Milk Of Magnesia (Magnesium Hydroxide) 400 Mg/5 Ml Oral.susp 400 Mg PO Acetaminophen 500 Mg Tablet 1 Tab PO BID Clonidine Hcl 0.1 Mg Tablet 1 Tab PO QHS Tramadol Hcl 50 Mg Tablet 50 Mg PO DAILY PRN Hydralazine Hcl 20 Mg/1 Ml Vial 20 Mg IJ Gabapentin (Gabapentin) 300 Mg Capsule 300 Mg PO TID Acidophilus (Lactobacillus Acidophilus) 1 Each Capsule 1 Each PO Atorvastatin Calcium 10 Mg Tablet 1 Tab PO DAILY Vitamin C (Ascorbic Acid) 500 Mg Tablet.er 500 Mg PO Aspirin 325 Mg Tablet 1 Tab PO DAILY Colace (Docusate Sodium) 100 Mg Capsule 1 Cap PO BID Magnesium Oxide 400 Mg Tablet 1 Tab PO DAILY Multivitamins (Multivitamin) 1 Each Tablet 1 Tab PO DAILY NICODERM CQ 14mg (Nicotine) 1 Each Patch.td24 1 Patch TP DAILY Miralax (Polyethylene Glycol 3350) 17 Gm Powd.pack 1 Packet PO DAILY Albuterol Sulfate Neb Soln (Albuterol Sulfate) 0.63 Mg/3 Ml Vial.neb 1 Vial NEB QID Prednisone 20 Mg Tablet 1 Tab PO DAILY Seroquel (Quetiapine Fumarate) 25 Mg Tablet 1 Tab PO QHS Hydrochlorothiazide Tablet (Hydrochlorothiazide) 12.5 Mg Tablet 1 Tab PO QHS Lexapro (Escitalopram Oxalate) 20 Mg Tablet 1 Tab PO QHS Hydrocodone-Apap 10-325 (Hydrocodone Bit/Acetaminophen) 1 Each Tablet 1 Tab PO PRN Q4HRS Oxycontin (Oxycodone HCl) 10 Mg Tab.er.12h 10 Mg PO BID Vitals/I & O Vital Sign - Last 24 Hours 02/09/18 02/09/18 02/09/18 02/09/18 12:00 12:00 12:10 12:20 Pulse 96 98 108 Resp 24 24 24 B/P (MAP) 76/47 (57) 86/63 (71) 116/78 (91) Pulse Ox 92 92 97 O2 Delivery BiPAP/CPAP Bi-pap BiPAP/CPAP BiPAP/CPAP 02/09/18 02/09/18 02/09/18 02/09/18 13:00 14:00 15:00 15:06 Pulse 112 120 128 Resp 22 22 24 24 B/P (MAP) 141/88 (105) 152/91 (111) 157/95 (115) Pulse Ox 97 94 95 96 O2 Delivery BiPAP/CPAP BiPAP/CPAP BiPAP/CPAP BiPAP/CPAP 02/09/18 02/09/18 02/09/18 02/09/18 15:19 16:00 16:00 17:00 Temp 98.8 98.8 Pulse 124 132 Resp 20 20 B/P (MAP) 153/95 (114) 155/86 (109) Pulse Ox 96 95 92 O2 Delivery BiPAP/CPAP Bi-pap BiPAP/CPAP BiPAP/CPAP 02/09/18 02/09/18 02/09/18 02/09/18 17:14 18:00 18:06 18:18 Pulse 139 137 101 Resp 20 24 B/P (MAP) 169/75 (106) 169/95 135/88 (104) Pulse Ox 96 90 O2 Delivery BiPAP/CPAP BiPAP/CPAP 02/09/18 02/09/18 02/09/18/15/18 19:45 20:00 20:00 20:15 Temp 99.8 99.8 Pulse 120 Resp 20 45 20 B/P (MAP) 168/116 (133) Pulse Ox 90 97 92 O2 Delivery BiPAP/CPAP BiPAP/CPAP Bi-pap Ventilator 02/09/18 02/09/18 02/09/18 02/09/18 21:00 21:32 22:00 22:05 Pulse 130 132 Resp 20 25 29 B/P (MAP) 145/96 (112) 119/75 (90) Pulse Ox 90 90 96 88 O2 Delivery Ventilator Ventilator BiPAP/CPAP Ventilator 02/09/18 02/09/18 02/09/18 02/10/18 23:00 23:42 23:59 00:00 Temp 99.5 99.5 Pulse 120 118 Resp 29 27 B/P (MAP) 96/72 (80) 85/60 (68) Pulse Ox 96 98 98 O2 Delivery BiPAP/CPAP Ventilator Mechanical Ventilator BiPAP/CPAP 02/10/18 02/10/18 02/10/18 02/10/18 01:00 02:00 03:00 03:34 Pulse 113 110 106 Resp 27 26 25 B/P (MAP) 105/54 (71) 90/60 (70) 63/49 (54) Pulse Ox 100 100 99 100 O2 Delivery BiPAP/CPAP BiPAP/CPAP BiPAP/CPAP Ventilator 02/10/18 02/10/18 02/10/18 02/10/18 03:45 04:00 04:00 04:15 Temp 98.5 98.5 Pulse 106 102 106 Resp 25 24 25 B/P (MAP) /54 93/61 (72) 103/68 (80) Pulse Ox 99 100 99 O2 Delivery BiPAP/CPAP Mechanical Ventilator BiPAP/CPAP BiPAP/CPAP 02/10/18 02/10/18 02/10/18 02/10/18 04:30 04:45 05:00 05:21 Pulse 106 106 104 Resp 25 25 24 B/P (MAP) 77/45 (56) 84/65 (71) 102/65 (77) Pulse Ox 99 99 100 100 O2 Delivery BiPAP/CPAP BiPAP/CPAP BiPAP/CPAP Ventilator 02/10/18 02/10/18 02/10/18 02/10/18 05:30 05:45 06:00 07:00 Temp 99.8 99.8 Pulse 104 104 102 100 Resp 24 24 21 B/P (MAP) /58 /64 108/64 (79) 118/74 (89) Pulse Ox 100 100 100 60 O2 Delivery BiPAP/CPAP BiPAP/CPAP BiPAP/CPAP Ventilator 02/10/18 02/10/18 02/10/18 02/10/18 07:21 08:00 08:00 08:36 Pulse 102 Resp 25 B/P (MAP) 121/81 (94) Pulse Ox 100 50 100 O2 Delivery Ventilator Ventilator Mechanical Ventilator Ventilator 02/10/18 02/10/18 09:00 09:44 Pulse 101 B/P (MAP) 98/69 (79) Pulse Ox 50 98 O2 Delivery Ventilator Ventilator Intake and Output 02/09/18 02/09/18 02/10/18 15:00 23:00 07:00 Intake Total 0 ml 193 ml 264.6 ml Output Total 675 ml 850 ml 460 ml Balance -675 ml -657 ml -195.4 ml ALEX RUDOLPH MD Feb 10, 2018 11:27
--- NOTE | 2018-02-10 11:55 | RAD ---
Chest radiograph 02/10/2018 11:20 AM INDICATION: Endotracheal tube advanced COMPARISON: February 10, 2018 at 0929 hours TECHNIQUE: Supine frontal view of the chest is provided. FINDINGS: The cardiomediastinal silhouette is similar in appearance. Endotracheal tube terminates 5 cm above the level of the sohan, in appropriate position. Nasogastric tube and right IJ central venous catheter is in similar position. Similar bilateral interstitial airspace disease with more confluent opacity in the left upper lobe. No pneumothorax. IMPRESSION: Interval advancement of endotracheal tube which is in satisfactory position. No pneumothorax. Electronically signed by: Charissa Freeman MD (02/10/2018 11:52 AM) [facility]
--- NOTE | 2018-02-10 12:08 | CONS ---
DATE OF CONSULTATION: REQUESTING PHYSICIAN: Hospitalist. REASON FOR CONSULTATION: Renal failure. HISTORY OF PRESENT ILLNESS: A 67-year-old female with history of hypertension, COPD, congestive cardiomyopathy and severe peripheral vascular disease. The patient presented to the hospital with increasing shortness of breath. She is now intubated and sedated in the Intensive Care Unit. She has sepsis and probable aspiration pneumonitis. Due to increased level of azotemia with creatinine 2.1, Nephrology evaluation requested. PAST MEDICAL HISTORY: Peripheral vascular disease, hypertension, paroxysmal atrial fibrillation, COPD, congestive cardiomyopathy, C. difficile colitis, seizures, fibromyalgia, chronic pain, degenerative disk disease, CVA, right ankle wound infection, I and D right ankle wound, appendectomy, hysterectomy, rotator cuff repair. ALLERGIES: NSAIDS, CODEINE, METRONIDAZOLE. MEDICATIONS: Reviewed from medication list. FAMILY HISTORY: Noncontributory. SOCIAL HISTORY: Resides with family. REVIEW OF SYSTEMS: Unobtainable, is intubated and sedated. PHYSICAL EXAMINATION: GENERAL APPEARANCE: Intubated and sedated. HEENT: , otherwise clear. NECK: No increased JVD. No thyromegaly, mass or adenopathy. LUNGS: Scattered rhonchi. CARDIAC: Without S3 or rub. ABDOMEN: Soft, nontender, no bruits. EXTREMITIES: Without edema. NEUROPSYCHIATRIC: Sedated. LABORATORY DATA: Sodium 144, creatinine 3.2, chloride 104, CO2 is 27, BUN 45, creatinine 2.1, glucose 114, mag 2.2. Troponin 44.5 and 30.2. Hemoglobin 13, hematocrit 39.8, white count 8.4. IMPRESSION: 1. Acute renal failure -- currently in the setting of sepsis syndrome, likely acute tubular necrosis. 2. Myocardial infarction with known history of congestive cardiomyopathy. 3. Sepsis syndrome. RECOMMENDATIONS: Fluid balance and support as you are doing. She is currently intubated. She is on broad spectrum antibiotics. Cardiology is evaluating. We will follow. BETY GANT MD DR: BRANNON/regla JOB#: [id number] / [id number]
[2018-02-10] MEDS: ALBUTEROL SULFATE 2.5 MG/3 ML NEBU. NEB SCH ×2 (12:41→16:26)
[2018-02-10] MEDS: BUDESONIDE 0.5 MG/2 ML NEBU. NEB SCH ×2 (12:44→20:02)
[2018-02-10] MEDS: MAGNESIUM OXIDE 400 MG TABLET PO SCH (13:24)
[2018-02-10] MEDS: methylPREDNISolone SOD SUCC PF 40 MG/ML VIAL. IV SCH ×2 (13:24→22:16)
[2018-02-10] MEDS: NICOTINE 14MG PATCH. TD SCH (13:25)
[2018-02-10] MEDS: MIDAZOLAM 100mg/100ml NS BAG 100 ML IV PRN (13:26)
[2018-02-10] MEDS: MAGNESIUM HYDROXIDE 2,400 MG/30 ML ORAL.SUSP. PO SCH (13:32)
[2018-02-10] MEDS: ANTI-COAG MONITOR BY PHARMACY. MC PRN ×2 (14:28→14:31)
[2018-02-10] MEDS: FAMOTIDINE 20 MG/2 ML VIAL IVP SCH (22:16)
[2018-02-11] VITALS (22 sets, daily range): BP systolic 82–149; BP diastolic 62–88
[2018-02-11] MEDS: MIDAZOLAM 100mg/100ml NS BAG 100 ML IV PRN (03:47)
[2018-02-11 05:26] LABS: HEMATOCRIT 36.4 % (36.0-47.0); HEMOGLOBIN 12.4 g/dL (12.0-15.5); RED BLOOD COUNT 4.02 x10^6/uL (3.50-5.40); RED CELL DISTRIBUTION WIDTH 16.8 % (11.5-14.5); WHITE BLOOD COUNT 4.3 x10^3/uL (4.0-11.0)
[2018-02-11] MEDS: PIPERACILLIN/TAZOBACTAM 3.375 GM in IV NORMAL SALINE 50ML 50 ML IV SCH (05:37)
[2018-02-11] MEDS: ONDANSETRON ODT 4 MG TAB.RAPDIS. PO SCH ×4 (05:37→23:41)
[2018-02-11] MEDS: NOREPINEPHRIN 8MG/250ML PREMIX 250 ML IV PRN (05:45)
[2018-02-11 05:53] LABS: CALCIUM 7.9 mg/dL (8.5-10.1); CREATININE 2.4 mg/dL (0.6-1.0); GFR 20.2; POTASSIUM 3.3 mmol/L (3.5-5.1)
--- NOTE | 2018-02-11 07:19 | PDOC ---
Infectious Disease Note Subjective Subjective Developed worsening respiratory failure 02/09 now intubated and sedated got lasix last night Hypotensive, on Levophed 5mcg No fevers last 24 hours No diarrhea ROS ROS Unobtainable Vital Sign Vital Signs Vital Signs Date Time Temp Pulse Resp B/P (MAP) Pulse Ox O2 Delivery O2 Flow Rate FiO2 02/11/18 06:00 102 22 91/65 (74) 99 Ventilator 02/11/18 04:00 99.4 99.4 Physical Exam PHYSICAL EXAM GENERAL: Intubated and sedated HEENT: Pupils equally round & reactive. ETT, OGT LUNGS: Clear to auscultation. HEART: S1, S2. ABDOMEN: Obese, soft. No grimace or guarding to palpation. Bowel sounds present. GENITOURINARY: Indwelling Forman in place. EXTREMITIES: Trace edema in lower extremities bilaterally. No cyanosis. Mitts SKIN: Warm without rash. NEUROLOGIC: Unresponsive/sedated RIJ - clean ok Labs Lab Laboratory Tests Test 02/10/18 08:41 02/10/18 14:54 02/10/18 15:07 02/10/18 21:20 O2 Saturation 98 % (92-99) Arterial Blood pH 7.44 (7.35-7.45) Arterial Blood pCO2 at Patient Temp 35 mmHg (35-46) Arterial Blood pO2 at Patient Temp 115 mmHg (65-108) Arterial Blood HCO3 23 mmol/L (21-28) Arterial Blood Base Excess -1 mmol/L (-3-3) FiO2 70 Heparin Anti-Xa Act, Unfractionated 0.63 IU/mL (0.30-0.70) 0.69 IU/mL (0.30-0.70) Glucose (Fingerstick) 96 mg/dL (70-99) Test 02/11/18 05:20 White Blood Count 4.3 x10^3/uL (4.0-11.0) Red Blood Count 4.02 x10^6/uL (3.50-5.40) Hemoglobin 12.4 g/dL (12.0-15.5) Hematocrit 36.4 % (36.0-47.0) Mean Corpuscular Volume 90 fL (79-100) Mean Corpuscular Hemoglobin 31 pg (25-35) Mean Corpuscular Hemoglobin Concent 34 g/dL (31-37) Red Cell Distribution Width 16.8 % (11.5-14.5) Platelet Count 202 x10^3/uL (140-400) Heparin Anti-Xa Act, Unfractionated 0.57 IU/mL (0.30-0.70) Sodium Level 147 mmol/L (136-145) Potassium Level 3.3 mmol/L (3.5-5.1) Chloride Level 109 mmol/L (98-107) Carbon Dioxide Level 25 mmol/L (21-32) Anion Gap 13 (6-14) Blood Urea Nitrogen 68 mg/dL (7-20) Creatinine 2.4 mg/dL (0.6-1.0) Estimated GFR (Cockcroft-Gault) 20.2 Glucose Level 161 mg/dL (70-99) Calcium Level 7.9 mg/dL (8.5-10.1) Micro Microbiology 02/08/18 Blood Culture - Preliminary, Resulted NO GROWTH AFTER 1 DAY Objective Assessment Sepsis with lactic acidosis, present on admission. Acute respiratory failure, likely aspirated. s/p intubation now on Solumedrol Hypotension - on Levophed at 6 mcg Fever - better ALLERGY TO METRONIDAZOLE. ANGELICA - worse Non-ST elevation myocardial infarction. Troponin up to 44.56 now. echo pending Acute diastolic heart failure. Paroxysmal atrial fibrillation. Peripheral vascular disease. History of seizures. History of Clostridium difficile, with fecal transplant. Plan Plan of Care F/u Blood cultures from 02/09 pending F/u Sputum culture Given ANGELICA d/c vanc Continue Zosyn - dose adjusted Monitor labs/temp and renal function closely F/u Echo Expect WBC to increase with steroid Labs in am Supportive care D/w RN Critically ill AMOR ESCOBAR MD Feb 11, 2018 07:19
[2018-02-11] MEDS: methylPREDNISolone SOD SUCC PF 40 MG/ML VIAL. IV SCH ×2 (08:18→21:00)
[2018-02-11] MEDS: MAGNESIUM HYDROXIDE 2,400 MG/30 ML ORAL.SUSP. PO SCH (08:18)
[2018-02-11] MEDS: NICOTINE 14MG PATCH. TD SCH (08:18)
[2018-02-11] MEDS: MAGNESIUM OXIDE 400 MG TABLET PO SCH (08:18)
--- NOTE | 2018-02-11 08:54 | CARD ---
EXAM: Two-dimensional and M-mode echocardiogram with Doppler and color Doppler. Other Information Quality : Technically Limited HR: 102bpm Rhythm : NSR INDICATION Dyspnea LEFT VENTRICLE Limited and technically difficult echocardiogram for LV systolic function. The left ventricle is normal size. There is borderline to mild concentric left ventricular hypertrophy. The left ventricular systolic function is normal and the ejection fraction is within normal range. Left ventricular ejection fraction estimated at 50%. Possible mild hypokinesis in the distal septal wall. RIGHT VENTRICLE The right ventricle is normal size. The right ventricular systolic function is normal. Critical Notification Critical Value: No <Conclusion> Limited and technically difficult echocardiogram for LV systolic function. The left ventricle is normal size. The left ventricular systolic function is normal and the ejection fraction is within normal range. Left ventricular ejection fraction estimated at 50%. Possible mild hypokinesis in the distal septal wall. There is borderline to mild concentric left ventricular hypertrophy. Signed by : Reuben Mejia MD Electronically Approved : 02/10/2018 12:51:53 MTDJeison
[2018-02-11] MEDS: IPRATROPIUM BROMIDE 0.5 MG/2.5 ML NEBU. NEB SCH ×4 (08:58→20:06)
[2018-02-11] MEDS: BUDESONIDE 0.5 MG/2 ML NEBU. NEB SCH ×2 (08:59→20:07)
[2018-02-11 09:34] LABS: BASE EXCESS ABG -1 mmol/L (-3-3); HCO3 ABG 23 mmol/L (21-28); PCO2 ABG 34 mmHg (35-46); PO2 ABG 82 mmHg (65-108); SAT O2 ABG 95 % (92-99)
--- NOTE | 2018-02-11 09:34 | EKG ---
[facility] [address] [place] [address] Test Date: 2018-02-08 Test Time: 15:53:40 Pat Name: FINN ELLER Department: Room: [facility] Gender: F Flosser: RAMIRO : 1950 Requested By: MADAN DRAEK Order Number: [id number] Reading MD: Gregorio Worley Measurements Intervals [place] Rate: 139 P: -166 IA: 130 QRS: 79 QRSD: 74 T: 69 QT: 236 QTc: 363 Interpretive Statements SINUS TACHYCARDIA NON SPECIFIC ST DEPRESSION Electronically Signed On 02-12-2018 10:32:20 DRAG CAR RACER by Gregorio Worley
[2018-02-11 09:35] LABS: FIO2 ABG 40
--- NOTE | 2018-02-11 10:04 | PDOC ---
PULMONARY PROGRESS NOTES Subjective worsening resp fail, intubated 02/09, AC VENT ON PRESSORS Vitals Vital Signs Date Time Temp Pulse Resp B/P (MAP) Pulse Ox O2 Delivery O2 Flow Rate FiO2 02/11/18 09:00 106 22 130/79 (96) 99 Ventilator 02/11/18 08:00 99.2 99.2 Lungs: Crackles Cardiovascular: S1, S2 Abdomen: Soft, Non-tender Extremities: No Edema Labs Laboratory Tests Test 02/09/18 10:55 02/09/18 12:46 02/09/18 14:13 02/09/18 22:00 Urine Collection Type Unknown Urine Color Yellow Urine Clarity Cloudy Urine pH 5.5 Urine Specific [place] 1.025 Urine Protein 100 mg/dL (NEG-TRACE) Urine Glucose (UA) Negative mg/dL (NEG) Urine Ketones (Stick) Negative mg/dL (NEG) Urine Blood Moderate (NEG) Urine Nitrite Negative (NEG) Urine Bilirubin Negative (NEG) Urine Urobilinogen Dipstick 0.2 mg/dL (0.2 mg/dL) Urine Leukocyte Esterase Negative (NEG) Urine RBC 0 /HPF (0-2) Urine WBC 1-4 /HPF (0-4) Urine Squamous Epithelial Cells Few /LPF Urine Bacteria 0 /HPF (0-FEW) O2 Saturation 94 % (92-99) 79 % (92-99) Arterial Blood pH 7.50 (7.35-7.45) 7.27 (7.35-7.45) Arterial Blood pCO2 at Patient Temp 30 mmHg (35-46) 52 mmHg (35-46) Arterial Blood pO2 at Patient Temp 71 mmHg (65-108) 51 mmHg (65-108) Arterial Blood HCO3 23 mmol/L (21-28) 24 mmol/L (21-28) Arterial Blood Base Excess 0 mmol/L (-3-3) -4 mmol/L (-3-3) FiO2 40 100 Heparin Anti-Xa Act, Unfractionated 0.49 IU/mL (0.30-0.70) Test 02/10/18 05:15 02/10/18 08:41 02/10/18 14:54 02/10/18 15:07 White Blood Count 8.4 x10^3/uL (4.0-11.0) Red Blood Count 4.39 x10^6/uL (3.50-5.40) Hemoglobin 13.4 g/dL (12.0-15.5) Hematocrit 39.8 % (36.0-47.0) Mean Corpuscular Volume 91 fL (79-100) Mean Corpuscular Hemoglobin 31 pg (25-35) Mean Corpuscular Hemoglobin Concent 34 g/dL (31-37) Red Cell Distribution Width 17.4 % (11.5-14.5) Platelet Count 199 x10^3/uL (140-400) Neutrophils (%) (Auto) 82 % (31-73) Lymphocytes (%) (Auto) 14 % (24-48) Monocytes (%) (Auto) 3 % (0-9) Eosinophils (%) (Auto) 0 % (0-3) Basophils (%) (Auto) 1 % (0-3) Neutrophils # (Auto) 6.9 x10^3uL (1.8-7.7) Lymphocytes # (Auto) 1.2 x10^3/uL (1.0-4.8) Monocytes # (Auto) 0.3 x10^3/uL (0.0-1.1) Eosinophils # (Auto) 0.0 x10^3/uL (0.0-0.7) Basophils # (Auto) 0.1 x10^3/uL (0.0-0.2) Platelet Estimate Adequate (ADEQUATE) Large Platelets Present Heparin Anti-Xa Act, Unfractionated 0.72 IU/mL (0.30-0.70) 0.63 IU/mL (0.30-0.70) Sodium Level 144 mmol/L (136-145) Potassium Level 3.2 mmol/L (3.5-5.1) Chloride Level 104 mmol/L (98-107) Carbon Dioxide Level 27 mmol/L (21-32) Anion Gap 13 (6-14) Blood Urea Nitrogen 45 mg/dL (7-20) Creatinine 2.1 mg/dL (0.6-1.0) Estimated GFR (Cockcroft-Gault) 23.6 BUN/Creatinine Ratio 21 (6-20) Glucose Level 114 mg/dL (70-99) Calcium Level 7.9 mg/dL (8.5-10.1) Magnesium Level 2.2 mg/dL (1.8-2.4) Total Bilirubin 0.3 mg/dL (0.2-1.0) Aspartate Amino Transf (AST/SGOT) 187 U/L (15-37) Alanine Aminotransferase (ALT/SGPT) 34 U/L (14-59) Alkaline Phosphatase 52 U/L (46-116) Troponin I Quantitative 44.560 ng/mL (0.000-0.055) Total Protein 6.2 g/dL (6.4-8.2) Albumin 2.7 g/dL (3.4-5.0) Albumin/Globulin Ratio 0.8 (1.0-1.7) O2 Saturation 98 % (92-99) Arterial Blood pH 7.44 (7.35-7.45) Arterial Blood pCO2 at Patient Temp 35 mmHg (35-46) Arterial Blood pO2 at Patient Temp 115 mmHg (65-108) Arterial Blood HCO3 23 mmol/L (21-28) Arterial Blood Base Excess -1 mmol/L (-3-3) FiO2 70 Glucose (Fingerstick) 96 mg/dL (70-99) Test 02/10/18 21:20 02/11/18 05:20 02/11/18 09:00 Heparin Anti-Xa Act, Unfractionated 0.69 IU/mL (0.30-0.70) 0.57 IU/mL (0.30-0.70) White Blood Count 4.3 x10^3/uL (4.0-11.0) Red Blood Count 4.02 x10^6/uL (3.50-5.40) Hemoglobin 12.4 g/dL (12.0-15.5) Hematocrit 36.4 % (36.0-47.0) Mean Corpuscular Volume 90 fL (79-100) Mean Corpuscular Hemoglobin 31 pg (25-35) Mean Corpuscular Hemoglobin Concent 34 g/dL (31-37) Red Cell Distribution Width 16.8 % (11.5-14.5) Platelet Count 202 x10^3/uL (140-400) Sodium Level 147 mmol/L (136-145) Potassium Level 3.3 mmol/L (3.5-5.1) Chloride Level 109 mmol/L (98-107) Carbon Dioxide Level 25 mmol/L (21-32) Anion Gap 13 (6-14) Blood Urea Nitrogen 68 mg/dL (7-20) Creatinine 2.4 mg/dL (0.6-1.0) Estimated GFR (Cockcroft-Gault) 20.2 Glucose Level 161 mg/dL (70-99) Calcium Level 7.9 mg/dL (8.5-10.1) O2 Saturation 95 % (92-99) Arterial Blood pH 7.44 (7.35-7.45) Arterial Blood pCO2 at Patient Temp 34 mmHg (35-46) Arterial Blood pO2 at Patient Temp 82 mmHg (65-108) Arterial Blood HCO3 23 mmol/L (21-28) Arterial Blood Base Excess -1 mmol/L (-3-3) FiO2 40 Laboratory Tests Test 02/10/18 14:54 02/10/18 15:07 02/10/18 21:20 02/11/18 05:20 Heparin Anti-Xa Act, Unfractionated 0.63 IU/mL (0.30-0.70) 0.69 IU/mL (0.30-0.70) 0.57 IU/mL (0.30-0.70) Glucose (Fingerstick) 96 mg/dL (70-99) White Blood Count 4.3 x10^3/uL (4.0-11.0) Red Blood Count 4.02 x10^6/uL (3.50-5.40) Hemoglobin 12.4 g/dL (12.0-15.5) Hematocrit 36.4 % (36.0-47.0) Mean Corpuscular Volume 90 fL (79-100) Mean Corpuscular Hemoglobin 31 pg (25-35) Mean Corpuscular Hemoglobin Concent 34 g/dL (31-37) Red Cell Distribution Width 16.8 % (11.5-14.5) Platelet Count 202 x10^3/uL (140-400) Sodium Level 147 mmol/L (136-145) Potassium Level 3.3 mmol/L (3.5-5.1) Chloride Level 109 mmol/L (98-107) Carbon Dioxide Level 25 mmol/L (21-32) Anion Gap 13 (6-14) Blood Urea Nitrogen 68 mg/dL (7-20) Creatinine 2.4 mg/dL (0.6-1.0) Estimated GFR (Cockcroft-Gault) 20.2 Glucose Level 161 mg/dL (70-99) Calcium Level 7.9 mg/dL (8.5-10.1) Test 02/11/18 09:00 O2 Saturation 95 % (92-99) Arterial Blood pH 7.44 (7.35-7.45) Arterial Blood pCO2 at Patient Temp 34 mmHg (35-46) Arterial Blood pO2 at Patient Temp 82 mmHg (65-108) Arterial Blood HCO3 23 mmol/L (21-28) Arterial Blood Base Excess -1 mmol/L (-3-3) FiO2 40 Medications Active Scripts Medications Dose Route/Sig Max Daily Dose Days Date Category Zofran (Ondansetron Hcl) 4 Mg Tablet 1 Tab PO Q6HRS 09/20/17 Reported Milk Of Magnesia (Magnesium Hydroxide) 400 Mg/5 Ml Oral.susp 400 Mg PO 09/20/17 Reported Acetaminophen 500 Mg Tablet 1 Tab PO BID 09/20/17 Reported Clonidine Hcl 0.1 Mg Tablet 1 Tab PO QHS 09/20/17 Reported Tramadol Hcl 50 Mg Tablet 50 Mg PO DAILY PRN 09/20/17 Reported Hydralazine Hcl 20 Mg/1 Ml Vial 20 Mg IJ 09/20/17 Reported Gabapentin (Gabapentin) 300 Mg Capsule 300 Mg PO TID 09/20/17 Reported Acidophilus (Lactobacillus Acidophilus) 1 Each Capsule 1 Each PO 09/20/17 Reported Atorvastatin Calcium 10 Mg Tablet 1 Tab PO DAILY 09/20/17 Reported Vitamin C (Ascorbic Acid) 500 Mg Tablet.er 500 Mg PO 09/20/17 Reported Aspirin 325 Mg Tablet 1 Tab PO DAILY 09/20/17 Reported Colace (Docusate Sodium) 100 Mg Capsule 1 Cap PO BID 09/20/17 Reported Magnesium Oxide 400 Mg Tablet 1 Tab PO DAILY 09/20/17 Reported Multivitamins (Multivitamin) 1 Each Tablet 1 Tab PO DAILY 09/20/17 Reported NICODERM CQ 14mg (Nicotine) 1 Each Patch.td24 1 Patch TP DAILY 09/20/17 Reported Miralax (Polyethylene Glycol 3350) 17 Gm Powd.pack 1 Packet PO DAILY 09/20/17 Reported Albuterol Sulfate Neb Soln (Albuterol Sulfate) 0.63 Mg/3 Ml Vial.neb 1 Vial NEB QID 09/20/17 Reported Prednisone 20 Mg Tablet 1 Tab PO DAILY 09/20/17 Reported Percocet 5-325 Mg Tablet (Oxycodone/Acetaminophen) 1 Each Tablet 1 Tab PO BID 3 07/31/17 Rx Seroquel (Quetiapine Fumarate) 25 Mg Tablet 1 Tab PO QHS 10/21/16 Reported Hydrochlorothiazide Tablet (Hydrochlorothiazide) 12.5 Mg Tablet 1 Tab PO QHS 10/21/16 Reported Lexapro (Escitalopram Oxalate) 20 Mg Tablet 1 Tab PO QHS 10/21/16 Reported Hydrocodone-Apap 10-325 (Hydrocodone Bit/Acetaminophen) 1 Each Tablet 1 Tab PO PRN Q4HRS 10/21/16 Reported Oxycontin (Oxycodone HCl) 10 Mg Tab.er.12h 10 Mg PO BID 10/21/16 Reported Comments cxr reviewed ett too high Persistent patchy perihilar interstitial changes are identified with more focal nodular airspace density in the left upper lobe. There is trace right pleural effusion versus pleural thickening. No pneumothorax. Impression . IMPRESSION: 1. Acute hypoxemic respiratory failure secondary to acute diastolic congestive heart failure, non-ST elevation myocardial infarction/SEPSIS 2. Abnormal chest x-ray/CHF PNEUMONIA 3. Acute diastolic congestive heart failure. 4. Chronic obstructive pulmonary disease with mild acute exacerbation. 5. Acute bronchitis/ASPIRATION PNEUMONIA 6. Smoker. 7. Leukocytosis. 8. History of cerebrovascular accident. 9. hypotension 10. NSTEMI PER CARD Plan . ANITBXN PER ID FOLLOW CARD INPUT AC MODE REPEAT ABG AND CXR IN AM HEPARIN CCT 30 MIN 1. Titrate FiO2 to keep O2 saturation 94%. 2. cont vent support, setting reviewed, abg reviewed. 4. Cardiology is consulted. Heparin per Cardiology. 5. cont antibiotic. id on case 6. Follow up blood cultures. 7. cont inhaled corticosteroid, add solumedrol 40 mg bid 8. Pepcid for stress ulcer prophylaxis. 9. Elevate head of bed. JUDE LAMAR MD Feb 11, 2018 10:04
[2018-02-11] MEDS: ANTI-COAG MONITOR BY PHARMACY. MC PRN (12:25)
--- NOTE | 2018-02-11 12:26 | PDOC ---
PROGRESS NOTES Chief Complaint Chief Complaint Acute hypoxic respiratory failure NOW IPPV (02/09/18), Vent Settings: AC/22/450/40% with 7 PEEP Sedated with fentanyl Levophed drip COPD, Smoker - 1 ppday? Severe sepsis - with respiratory failure likely 2/2 pneumonia/bronchitis, fever 102.6F, leukocytosis, tachycardia, Acute diastolic heart failure - BNP of greater than 35,000. diuresis for pulmonary congestion PAD - with carotid, AAA, renovascular disease - cont asa plavix NSTEMI - elevated troponin at 17. Paroxysmal atrial fibrillation. Now in sinus rhythm. on coumadin, INR subtherapeutic, History of a previous CVA - Acute metabolic encephalopathy secondary to multifactorial see above ANGELICA, VMN - new (02/10/18) History of Present Illness History of Present Illness pt. was seen and examined Discussed patient with nurse at the bedside, Sedated with fentanyl, and still on levophed drip and ventilator Vitals Vitals Vital Signs Date Time Temp Pulse Resp B/P (MAP) Pulse Ox O2 Delivery O2 Flow Rate FiO2 02/11/18 11:40 100 Ventilator 02/11/18 11:00 110 22 92/73 (79) 02/11/18 08:00 99.2 99.2 Physical Exam Physical Exam GENERAL: Intubated and sedated HEENT: Pupils equally round & reactive. ETT, OGT LUNGS: Clear to auscultation. HEART: S1, S2. ABDOMEN: Obese, soft. No grimace or guarding to palpation. Bowel sounds present. GENITOURINARY: Indwelling Forman in place. EXTREMITIES: Trace edema in lower extremities bilaterally. No cyanosis. Mitts SKIN: Warm without rash. NEUROLOGIC: Unresponsive/sedated RIJ - clean ok General: Alert, Oriented X3, Cooperative, Other (intubated) Heart: Regular rate, Normal S1 Lungs: Clear, Other (on ventilator) Abdomen: Normal bowel sounds Extremities: No clubbing, No cyanosis, No edema, Normal pulses, No tenderness/ swelling Skin: No rashes, No breakdown, No significant lesion Labs LABS Laboratory Tests Test 02/10/18 14:54 02/10/18 15:07 02/10/18 21:20 02/11/18 05:20 Heparin Anti-Xa Act, Unfractionated 0.63 IU/mL (0.30-0.70) 0.69 IU/mL (0.30-0.70) 0.57 IU/mL (0.30-0.70) Glucose (Fingerstick) 96 mg/dL (70-99) White Blood Count 4.3 x10^3/uL (4.0-11.0) Red Blood Count 4.02 x10^6/uL (3.50-5.40) Hemoglobin 12.4 g/dL (12.0-15.5) Hematocrit 36.4 % (36.0-47.0) Mean Corpuscular Volume 90 fL (79-100) Mean Corpuscular Hemoglobin 31 pg (25-35) Mean Corpuscular Hemoglobin Concent 34 g/dL (31-37) Red Cell Distribution Width 16.8 % (11.5-14.5) Platelet Count 202 x10^3/uL (140-400) Sodium Level 147 mmol/L (136-145) Potassium Level 3.3 mmol/L (3.5-5.1) Chloride Level 109 mmol/L (98-107) Carbon Dioxide Level 25 mmol/L (21-32) Anion Gap 13 (6-14) Blood Urea Nitrogen 68 mg/dL (7-20) Creatinine 2.4 mg/dL (0.6-1.0) Estimated GFR (Cockcroft-Gault) 20.2 Glucose Level 161 mg/dL (70-99) Calcium Level 7.9 mg/dL (8.5-10.1) Test 02/11/18 09:00 O2 Saturation 95 % (92-99) Arterial Blood pH 7.44 (7.35-7.45) Arterial Blood pCO2 at Patient Temp 34 mmHg (35-46) Arterial Blood pO2 at Patient Temp 82 mmHg (65-108) Arterial Blood HCO3 23 mmol/L (21-28) Arterial Blood Base Excess -1 mmol/L (-3-3) FiO2 40 Review of Systems Review of Systems unable to obtain Assessment and Plan Assessmemt and Plan Acute hypoxic respiratory failure NOW IPPV (02/09/18), Vent Settings: AC/22/450/40% with 7 PEEP Sedated with fentanyl Levophed drip COPD, Smoker - 1 ppday? Severe sepsis - with respiratory failure likely 2/2 pneumonia/bronchitis, fever 102.6F, leukocytosis, tachycardia, Acute diastolic heart failure - BNP of greater than 35,000. diuresis for pulmonary congestion PAD - with carotid, AAA, renovascular disease - cont asa plavix NSTEMI - elevated troponin at 17. Paroxysmal atrial fibrillation. Now in sinus rhythm. on coumadin, INR subtherapeutic, History of a previous CVA - Acute metabolic encephalopathy secondary to multifactorial see above ANGELICA, VMN - new (02/10/18) Plan: ICU monitoring Hope to wean off levophed first, once complete, hope to wean off ventilator Recheck Labs DVT Prophylaxis with SCVs OG feeds 30cc/hr Comment Review of Relevant I have reviewed the following items pat (where applicable) has been applied. Labs Laboratory Tests Test 02/09/18 12:46 02/09/18 14:13 02/09/18 22:00 02/10/18 05:15 O2 Saturation 94 % (92-99) 79 % (92-99) Arterial Blood pH 7.50 (7.35-7.45) 7.27 (7.35-7.45) Arterial Blood pCO2 at Patient Temp 30 mmHg (35-46) 52 mmHg (35-46) Arterial Blood pO2 at Patient Temp 71 mmHg (65-108) 51 mmHg (65-108) Arterial Blood HCO3 23 mmol/L (21-28) 24 mmol/L (21-28) Arterial Blood Base Excess 0 mmol/L (-3-3) -4 mmol/L (-3-3) FiO2 40 100 Heparin Anti-Xa Act, Unfractionated 0.49 IU/mL (0.30-0.70) 0.72 IU/mL (0.30-0.70) White Blood Count 8.4 x10^3/uL (4.0-11.0) Red Blood Count 4.39 x10^6/uL (3.50-5.40) Hemoglobin 13.4 g/dL (12.0-15.5) Hematocrit 39.8 % (36.0-47.0) Mean Corpuscular Volume 91 fL (79-100) Mean Corpuscular Hemoglobin 31 pg (25-35) Mean Corpuscular Hemoglobin Concent 34 g/dL (31-37) Red Cell Distribution Width 17.4 % (11.5-14.5) Platelet Count 199 x10^3/uL (140-400) Neutrophils (%) (Auto) 82 % (31-73) Lymphocytes (%) (Auto) 14 % (24-48) Monocytes (%) (Auto) 3 % (0-9) Eosinophils (%) (Auto) 0 % (0-3) Basophils (%) (Auto) 1 % (0-3) Neutrophils # (Auto) 6.9 x10^3uL (1.8-7.7) Lymphocytes # (Auto) 1.2 x10^3/uL (1.0-4.8) Monocytes # (Auto) 0.3 x10^3/uL (0.0-1.1) Eosinophils # (Auto) 0.0 x10^3/uL (0.0-0.7) Basophils # (Auto) 0.1 x10^3/uL (0.0-0.2) Platelet Estimate Adequate (ADEQUATE) Large Platelets Present Sodium Level 144 mmol/L (136-145) Potassium Level 3.2 mmol/L (3.5-5.1) Chloride Level 104 mmol/L (98-107) Carbon Dioxide Level 27 mmol/L (21-32) Anion Gap 13 (6-14) Blood Urea Nitrogen 45 mg/dL (7-20) Creatinine 2.1 mg/dL (0.6-1.0) Estimated GFR (Cockcroft-Gault) 23.6 BUN/Creatinine Ratio 21 (6-20) Glucose Level 114 mg/dL (70-99) Calcium Level 7.9 mg/dL (8.5-10.1) Magnesium Level 2.2 mg/dL (1.8-2.4) Total Bilirubin 0.3 mg/dL (0.2-1.0) Aspartate Amino Transf (AST/SGOT) 187 U/L (15-37) Alanine Aminotransferase (ALT/SGPT) 34 U/L (14-59) Alkaline Phosphatase 52 U/L (46-116) Troponin I Quantitative 44.560 ng/mL (0.000-0.055) Total Protein 6.2 g/dL (6.4-8.2) Albumin 2.7 g/dL (3.4-5.0) Albumin/Globulin Ratio 0.8 (1.0-1.7) Test 02/10/18 08:41 02/10/18 14:54 02/10/18 15:07 02/10/18 21:20 O2 Saturation 98 % (92-99) Arterial Blood pH 7.44 (7.35-7.45) Arterial Blood pCO2 at Patient Temp 35 mmHg (35-46) Arterial Blood pO2 at Patient Temp 115 mmHg (65-108) Arterial Blood HCO3 23 mmol/L (21-28) Arterial Blood Base Excess -1 mmol/L (-3-3) FiO2 70 Heparin Anti-Xa Act, Unfractionated 0.63 IU/mL (0.30-0.70) 0.69 IU/mL (0.30-0.70) Glucose (Fingerstick) 96 mg/dL (70-99) Test 02/11/18 05:20 02/11/18 09:00 White Blood Count 4.3 x10^3/uL (4.0-11.0) Red Blood Count 4.02 x10^6/uL (3.50-5.40) Hemoglobin 12.4 g/dL (12.0-15.5) Hematocrit 36.4 % (36.0-47.0) Mean Corpuscular Volume 90 fL (79-100) Mean Corpuscular Hemoglobin 31 pg (25-35) Mean Corpuscular Hemoglobin Concent 34 g/dL (31-37) Red Cell Distribution Width 16.8 % (11.5-14.5) Platelet Count 202 x10^3/uL (140-400) Heparin Anti-Xa Act, Unfractionated 0.57 IU/mL (0.30-0.70) Sodium Level 147 mmol/L (136-145) Potassium Level 3.3 mmol/L (3.5-5.1) Chloride Level 109 mmol/L (98-107) Carbon Dioxide Level 25 mmol/L (21-32) Anion Gap 13 (6-14) Blood Urea Nitrogen 68 mg/dL (7-20) Creatinine 2.4 mg/dL (0.6-1.0) Estimated GFR (Cockcroft-Gault) 20.2 Glucose Level 161 mg/dL (70-99) Calcium Level 7.9 mg/dL (8.5-10.1) O2 Saturation 95 % (92-99) Arterial Blood pH 7.44 (7.35-7.45) Arterial Blood pCO2 at Patient Temp 34 mmHg (35-46) Arterial Blood pO2 at Patient Temp 82 mmHg (65-108) Arterial Blood HCO3 23 mmol/L (21-28) Arterial Blood Base Excess -1 mmol/L (-3-3) FiO2 40 Laboratory Tests Test 02/10/18 14:54 02/10/18 15:07 02/10/18 21:20 02/11/18 05:20 Heparin Anti-Xa Act, Unfractionated 0.63 IU/mL (0.30-0.70) 0.69 IU/mL (0.30-0.70) 0.57 IU/mL (0.30-0.70) Glucose (Fingerstick) 96 mg/dL (70-99) White Blood Count 4.3 x10^3/uL (4.0-11.0) Red Blood Count 4.02 x10^6/uL (3.50-5.40) Hemoglobin 12.4 g/dL (12.0-15.5) Hematocrit 36.4 % (36.0-47.0) Mean Corpuscular Volume 90 fL (79-100) Mean Corpuscular Hemoglobin 31 pg (25-35) Mean Corpuscular Hemoglobin Concent 34 g/dL (31-37) Red Cell Distribution Width 16.8 % (11.5-14.5) Platelet Count 202 x10^3/uL (140-400) Sodium Level 147 mmol/L (136-145) Potassium Level 3.3 mmol/L (3.5-5.1) Chloride Level 109 mmol/L (98-107) Carbon Dioxide Level 25 mmol/L (21-32) Anion Gap 13 (6-14) Blood Urea Nitrogen 68 mg/dL (7-20) Creatinine 2.4 mg/dL (0.6-1.0) Estimated GFR (Cockcroft-Gault) 20.2 Glucose Level 161 mg/dL (70-99) Calcium Level 7.9 mg/dL (8.5-10.1) Test 02/11/18 09:00 O2 Saturation 95 % (92-99) Arterial Blood pH 7.44 (7.35-7.45) Arterial Blood pCO2 at Patient Temp 34 mmHg (35-46) Arterial Blood pO2 at Patient Temp 82 mmHg (65-108) Arterial Blood HCO3 23 mmol/L (21-28) Arterial Blood Base Excess -1 mmol/L (-3-3) FiO2 40 Microbiology 02/08/18 Blood Culture - Preliminary, Resulted NO GROWTH AFTER 2 DAYS Medications Current Medications Albuterol/ Ipratropium (Duoneb) 3 ml 1X ONCE NEB Last administered on at 17:14; Start 02/08/18 at 16:00; Stop 02/08/18 at 16:01; Status DC Vancomycin HCl (Vanco Per Pharmacy) 1 each PRN DAILY PRN MC SEE COMMENTS Last administered on 02/09/18at 08:59; Start 02/08/18 at 16:15; Stop 02/10/18 at 09 :07; Status DC Piperacillin Sod/ Tazobactam Sod (Zosyn Per Pharmacy) 1 each PRN DAILY PRN MC SEE COMMENTS; Start 02/08/18 at 16:15 Vancomycin HCl 1.75 gm/Sodium Chloride 500 ml @ 250 mls/hr 1X ONCE IV Last administered on 02/08/18at 16:36; Start 02/08/18 at 17:00; Stop 02/08/18 at 18 :59; Status DC Piperacillin Sod/ Tazobactam Sod 3.375 gm/Sodium Chloride 50 ml @ 100 mls/hr 1X ONCE IV Last administered on 02/08/18at 16:36; Start 02/08/18 at 16:30; Stop 02/08/18 at 16:59; Status DC Furosemide (Lasix) 20 mg 1X ONCE IVP Last administered on 02/08/18at 16:36; Start 02/08/18 at 16:30; Stop 02/08/18 at 16:31; Status DC Aspirin (Children'S Aspirin) 324 mg 1X ONCE PO Last administered on at 16:36; Start 02/08/18 at 16:30; Stop 02/08/18 at 16:31; Status DC Furosemide (Lasix) 20 mg 1X ONCE IVP Last administered on 02/08/18at 18:07; Start 02/08/18 at 17:00; Stop 02/08/18 at 17:01; Status DC Ondansetron HCl (Zofran) 4 mg 1X ONCE IV Last administered on 02/08/18at 17:00 ; Start 02/08/18 at 17:00; Stop 02/08/18 at 17:01; Status DC Ondansetron HCl (Zofran) 4 mg STK-MED ONCE .ROUTE ; Start 02/08/18 at 16:51; Stop 02/08/18 at 16:52; Status DC Heparin Sodium/ Dextrose 500 ml @ 0 mls/hr CONT PRN IV SEE I/O RECORD; Start 02/08/18 at 17:30; Status UNV Info (Anti-Coagulation Monitoring By Pharmacy) 1 each PRN DAILY PRN MC SEE COMMENTS Last administered on 02/10/18at 14:31; Start 02/08/18 at 17:30 Heparin Sodium/ Dextrose 500 ml @ 0 mls/hr CONT PRN IV SEE I/O RECORD Last administered on 02/10/18at 00:59; Start 02/08/18 at 17:30 Heparin Sodium (Porcine) (Heparin Sodium) 1,800 unit PRN Q6HRS PRN IV FOR UFH LEVEL LESS THAN 0.2 Last administered on 02/08/18at 20:10; Start 02/08/18 at 17 :30 Ondansetron HCl (Zofran) 4 mg 1X PRN PRN IV NAUSEA/VOMITING; Start 02/08/18 at 18:00; Stop 02/09/18 at 09:06; Status DC Piperacillin Sod/ Tazobactam Sod 3.375 gm/Sodium Chloride 50 ml @ 100 mls/hr Q6HRS IV Last administered on 02/11/18at 05:37; Start 02/09/18 at 00:00; Stop 02/11/18 at 07:14; Status DC Vancomycin HCl 1 gm/Sodium Chloride 250 ml @ 250 mls/hr Q24H IV Last administered on 02/09/18at 16:30; Start 02/09/18 at 16:30; Stop 02/10/18 at 09 :07; Status DC Vancomycin HCl (Vancomycin Trough Level) 1 each 1X ONCE MC ; Start 02/10/18 at 16:00; Stop 02/10/18 at 16:00; Status DC Magnesium Sulfate/ Dextrose 100 ml @ 25 mls/hr 1X ONCE IV Last administered on 02/08/18at 22:03; Start 02/08/18 at 22:00; Stop 02/09/18 at 01:59; Status DC Aspirin (Radha Aspirin) 325 mg DAILY PO ; Start 02/09/18 at 09:00; Stop at 10:16; Status DC Atorvastatin Calcium (Lipitor) 10 mg HS PO ; Start 02/09/18 at 21:00; Stop at 21:00; Status DC Clonidine HCl (Catapres) 0.1 mg QHS PO Last administered on 02/08/18at 22:05; Start 02/08/18 at 22:00; Stop 02/09/18 at 10:16; Status DC Docusate Sodium (Colace) 100 mg BID PO ; Start 02/09/18 at 09:00; Stop at 10:16; Status DC Gabapentin (Neurontin) 300 mg TID PO Last administered on 02/08/18at 22:08; Start 02/08/18 at 22:20; Stop 02/09/18 at 10:16; Status DC Labetalol HCl (Normodyne Iv Push) 10 mg PRN Q2HR PRN IVP HYPERTENSION, SEE COMMENTS Last administered on 02/09/18at 18:06; Start 02/08/18 at 21:30 Lorazepam (Ativan) 1 mg PRN Q4HRS PRN IV ANXIETY / AGITATION Last administered on 02/09/18at 01:49; Start 02/08/18 at 21:30 Morphine Sulfate (Morphine Sulfate) 4 mg PRN Q4HRS PRN IV PAIN Last administered on 02/09/18at 19:45; Start 02/08/18 at 21:30 Acetaminophen (Tylenol Supp) 325 mg PRN Q6HRS PRN TN MILD PAIN / TEMP Last administered on 02/09/18at 09:30; Start 02/09/18 at 06:45 Ipratropium Hamlet (Atrovent) 0.5 mg RTQID NEB Last administered on at 11:40; Start 02/09/18 at 08:00 Budesonide (Pulmicort) 0.5 mg RTBID NEB Last administered on 02/11/18at 08:59; Start 02/09/18 at 08:00 Famotidine (Pepcid Vial) 20 mg QHS IVP Last administered on 02/10/18at 22:16; Start 02/09/18 at 21:00 Acetaminophen (Tylenol) 500 mg PRN Q6HRS PRN PO FEVER/KUO; Start 02/09/18 at 09 :00 Ondansetron HCl (Zofran) 4 mg PRN Q6HRS PRN IV NAUSEA/VOMITING; Start at 09:00 Ondansetron HCl (Zofran Odt) 4 mg PRN Q6HRS PRN PO NAUSEA/VOMITING; Start at 09:00 Acetaminophen/ Hydrocodone Bitart (Lortab 10/325) 1 tab PRN Q4HRS PRN PO MODERATE PAIN; Start 02/09/18 at 09:00 Magnesium Hydroxide (Milk Of Magnesia) 400 mg DAILY PO Last administered on at 08:18; Start 02/09/18 at 09:00 Oxycodone HCl (OxyCONTIN) 10 mg BID PO ; Start 02/09/18 at 09:00; Stop at 10:16; Status DC Oxycodone/ Acetaminophen (Percocet 5/325) 1 tab BID PO ; Start 02/09/18 at 09: 00; Stop 02/09/18 at 10:16; Status DC Tramadol HCl (Ultram) 50 mg PRN DAILY PRN PO MILD PAIN; Start 02/09/18 at 09: 00 Non-Formulary Medication (Acetaminophen ) 1 tab BID PO ; Start 02/09/18 at 09: 00; Stop 02/09/18 at 09:12; Status DC Non-Formulary Medication (Albuterol Sulfate (Albuterol Sulfate Neb Soln)) 1 vial QID NEB ; Start 02/09/18 at 09:00; Stop 02/09/18 at 09:22; Status DC Citalopram Hydrobromide (CeleXA) 40 mg QHS PO ; Start 02/09/18 at 21:00; Stop 02/09/18 at 21:00; Status DC Hydrochlorothiazide (Microzide) 12.5 mg QHS PO ; Start 02/09/18 at 21:00; Stop 02/09/18 at 21:00; Status DC Non-Formulary Medication (Magnesium Oxide ) 1 tab DAILY PO ; Start 02/09/18 at 09:00; Stop 02/09/18 at 09:14; Status DC Non-Formulary Medication (Multivitamin (Multivitamins)) 1 tab DAILY PO ; Start 02/09/18 at 09:00; Stop 02/09/18 at 09:14; Status DC Nicotine (Nicoderm Cq 14mg) 1 patch DAILY TD Last administered on 02/11/18at 08 :18; Start 02/09/18 at 10:00 Ondansetron HCl (Zofran Odt) 4 mg Q6HRS PO Last administered on 02/11/18at 05: 37; Start 02/09/18 at 12:00 Non-Formulary Medication (Polyethylene Glycol 3350 (Miralax)) 1 packet DAILY PO ; Start 02/09/18 at 09:00; Stop 02/09/18 at 09:17; Status DC Quetiapine Fumarate (SEROquel) 25 mg QHS PO ; Start 02/09/18 at 21:00; Stop at 21:00; Status DC Labetalol HCl (Normodyne Iv Push) 10 mg PRN Q2HR PRN IVP HYPERTENSION, SEE COMMENTS; Start 02/09/18 at 09:00; Stop 02/09/18 at 09:06; Status DC Acetaminophen (Tylenol) 500 mg BID PO ; Start 02/09/18 at 10:00; Stop at 10:16; Status DC Magnesium Oxide (Magnesium Oxide) 400 mg DAILY PO Last administered on at 08:18; Start 02/09/18 at 10:00 Multivitamins (Thera M Plus) 1 tab DAILY PO ; Start 02/09/18 at 10:00; Stop at 10:16; Status DC Polyethylene Glycol (miraLAX PACKET) 17 gm DAILY PO ; Start 02/09/18 at 10:00; Stop 02/09/18 at 10:16; Status DC Albuterol Sulfate (Ventolin Neb Soln) 2.5 mg RTQID NEB Last administered on at 16:26; Start 02/09/18 at 12:00 Furosemide (Lasix) 60 mg 1X ONCE IVP Last administered on 02/09/18at 20:16; Start 02/09/18 at 20:00; Stop 02/09/18 at 20:01; Status DC Rocuronium Hamlet (Zemuron) 50 mg STK-MED ONCE .ROUTE ; Start 02/09/18 at 20: 23; Stop 02/09/18 at 20:24; Status DC Fentanyl Citrate 30 ml @ 0 mls/hr CONT PRN IV SEE PROTOCOL Last administered on 02/11/18at 03:47; Start 02/09/18 at 20:30 Propofol 100 ml @ 0 mls/hr CONT PRN IV SEE PROTOCOL Last administered on at 22:08; Start 02/09/18 at 20:30 Midazolam HCl 100 ml @ 5 mls/hr CONT PRN IV SEE I/O RECORD Last administered on 02/11/18at 03:47; Start 02/09/18 at 22:00 Norepinephrine Bitartrate 250 ml @ As Directed STK-MED ONCE IV ; Start at 02:33; Stop 02/10/18 at 02:35; Status DC Norepinephrine Bitartrate 250 ml @ 1.875 mls/ hr CONT PRN IV SEE I/O RECORD Last administered on 02/11/18at 05:45; Start 02/10/18 at 02:45 Methylprednisolone Sodium Succinate (SOLU-Medrol 40MG VIAL) 40 mg Q12HR IV Last administered on 02/11/18at 08:18; Start 02/10/18 at 09:00 Piperacillin Sod/ Tazobactam Sod 2.25 gm/Sodium Chloride 50 ml @ 100 mls/hr Q6HRS IV ; Start 02/11/18 at 12:00 Propofol (Diprivan) 200 mg STK-MED ONCE IV ; Start 02/09/18 at 07:00; Stop at 07:43; Status DC Succinylcholine Chloride (Anectine) 200 mg STK-MED ONCE .ROUTE ; Start at 07:00; Stop 02/11/18 at 07:43; Status DC Phenylephrine HCl (PHENYLEPHRINE in 0.9% NACL PF) 1 mg STK-MED ONCE IV ; Start 02/09/18 at 07:00; Stop 02/11/18 at 07:43; Status DC Ephedrine Sulfate (ePHEDrine PF IN SALINE SYRINGE) 50 mg STK-MED ONCE IV ; Start 02/09/18 at 07:00; Stop 02/11/18 at 07:43; Status DC Rocuronium Ham[place] (Zemuron) 50 mg STK-MED ONCE .ROUTE ; Start 02/09/18 at 21: 00; Stop 02/11/18 at 08:22; Status DC Active Scripts Active Percocet 5-325 Mg Tablet (Oxycodone/Acetaminophen) 1 Each Tablet 1 Tab PO BID 3 Days Reported Zofran (Ondansetron Hcl) 4 Mg Tablet 1 Tab PO Q6HRS Milk Of Magnesia (Magnesium Hydroxide) 400 Mg/5 Ml Oral.susp 400 Mg PO Acetaminophen 500 Mg Tablet 1 Tab PO BID Clonidine Hcl 0.1 Mg Tablet 1 Tab PO QHS Tramadol Hcl 50 Mg Tablet 50 Mg PO DAILY PRN Hydralazine Hcl 20 Mg/1 Ml Vial 20 Mg IJ Gabapentin (Gabapentin) 300 Mg Capsule 300 Mg PO TID Acidophilus (Lactobacillus Acidophilus) 1 Each Capsule 1 Each PO Atorvastatin Calcium 10 Mg Tablet 1 Tab PO DAILY Vitamin C (Ascorbic Acid) 500 Mg Tablet.er 500 Mg PO Aspirin 325 Mg Tablet 1 Tab PO DAILY Colace (Docusate Sodium) 100 Mg Capsule 1 Cap PO BID Magnesium Oxide 400 Mg Tablet 1 Tab PO DAILY Multivitamins (Multivitamin) 1 Each Tablet 1 Tab PO DAILY NICODERM CQ 14mg (Nicotine) 1 Each Patch.td24 1 Patch TP DAILY Miralax (Polyethylene Glycol 3350) 17 Gm Powd.pack 1 Packet PO DAILY Albuterol Sulfate Neb Soln (Albuterol Sulfate) 0.63 Mg/3 Ml Vial.neb 1 Vial NEB QID Prednisone 20 Mg Tablet 1 Tab PO DAILY Seroquel (Quetiapine Fumarate) 25 Mg Tablet 1 Tab PO QHS Hydrochlorothiazide Tablet (Hydrochlorothiazide) 12.5 Mg Tablet 1 Tab PO QHS Lexapro (Escitalopram Oxalate) 20 Mg Tablet 1 Tab PO QHS Hydrocodone-Apap 10-325 (Hydrocodone Bit/Acetaminophen) 1 Each Tablet 1 Tab PO PRN Q4HRS Oxycontin (Oxycodone HCl) 10 Mg Tab.er.12h 10 Mg PO BID Vitals/I & O Vital Sign - Last 24 Hours 02/10/18 02/10/18 02/10/18 02/10/18 12:37 13:00 13:35 14:00 Temp 99.6 99.6 Pulse 114 122 Resp 22 26 B/P (MAP) 164/92 (116) Pulse Ox 93 50 98 50 O2 Delivery Ventilator Ventilator Ventilator Ventilator 02/10/18 02/10/18 02/10/18 02/10/18 15:00 15:24 16:00 16:27 Pulse 112 Resp 22 25 B/P (MAP) 88/59 (69) 108/64 (79) Pulse Ox 50 50 98 O2 Delivery Ventilator Ventilator Mechanical Ventilator Ventilator 02/10/18 02/10/18 02/10/18 02/10/18 16:30 16:34 17:00 17:04 Pulse 110 112 Resp 22 24 B/P (MAP) 79/52 (61) 136/66 (89) Pulse Ox 40 98 40 98 O2 Delivery Ventilator Ventilator 02/10/18 02/10/18 02/10/18 02/10/18 17:58 18:00 19:00 20:00 Temp 99.2 99.2 Pulse 112 112 113 Resp 22 25 23 B/P (MAP) 144/85 (104) 101/70 (80) 91/71 (78) Pulse Ox 98 40 99 99 O2 Delivery Ventilator Ventilator Ventilator Ventilator 02/10/18 02/10/18 02/10/18 02/10/18 20:00 20:04 20:04 21:00 Pulse 110 Resp 24 B/P (MAP) 81/60 (67) Pulse Ox 98 98 99 O2 Delivery Mechanical Ventilator Ventilator Ventilator Ventilator 02/10/18 02/10/18 02/10/18 02/10/18 22:00 23:00 23:08 23:59 Pulse 107 112 Resp 23 22 B/P (MAP) 86/61 (69) 116/70 (85) Pulse Ox 99 99 98 O2 Delivery Ventilator Ventilator Ventilator Mechanical Ventilator 02/11/18 02/11/18 02/11/18 02/11/18 00:00 01:00 01:34 02:00 Temp 97.9 97.9 Pulse 106 108 104 Resp 22 22 22 B/P (MAP) 96/67 (77) 127/77 (94) 109/72 (84) Pulse Ox 99 99 98 98 O2 Delivery Ventilator Ventilator Ventilator Ventilator 02/11/18 02/11/18 02/11/18 02/11/18 03:00 03:46 03:57 04:00 Temp 99.4 99.4 Pulse 110 106 Resp 22 22 B/P (MAP) 125/77 (93) 100/69 (79) Pulse Ox 95 98 100 O2 Delivery Ventilator Ventilator Mechanical Ventilator Ventilator 02/11/18 02/11/18 02/11/18 02/11/18 05:00 05:30 05:43 05:45 Pulse 107 Resp 22 B/P (MAP) 120/80 (93) 143/86 (105) 96/65 (75) Pulse Ox 98 98 O2 Delivery Ventilator Ventilator 02/11/18 02/11/18 02/11/18 02/11/18 06:00 07:00 08:00 08:00 Temp 99.2 99.2 Pulse 102 100 98 Resp 22 B/P (MAP) 91/65 (74) 100/69 (79) 93/62 (72) Pulse Ox 99 99 99 O2 Delivery Ventilator Ventilator Mechanical Ventilator Ventilator 02/11/18 02/11/18 02/11/18 02/11/18 08:59 09:00 10:00 11:00 Pulse 106 106 110 Resp 22 B/P (MAP) 130/79 (96) 82/64 (70) 92/73 (79) Pulse Ox 100 99 100 100 O2 Delivery Ventilator Ventilator Ventilator Ventilator 02/11/18 11:40 Pulse Ox 100 O2 Delivery Ventilator Intake and Output 02/10/18 02/10/18 02/11/18 15:00 23:00 07:00 Intake Total 0 ml 503 ml 754 ml Output Total 500 ml 300 ml 280 ml Balance -500 ml 203 ml 474 ml Nutrition Consultation Dietary Evaluation: Recommendations by RD: Increase Calorie Intake Comments: REC TF per following: Jevity 1.5@goal rate 45 ml/hr w/25 ml water flushes q8 hrs or flushes per MD Expected Outcomes/Goals: TF for nutrition needs while pt remains intubated Interpretation of weight loss: >10% in 6 months Malnutrition Findings: Body Fat Depletion (Non Severe: Mild Depletion Weight Status: Appropriate SUSSY RYANL K III DO Feb 11, 2018 12:26
[2018-02-11] MEDS: PIPERACILLIN/TAZOBACTAM 2.25 GM in IV NORMAL SALINE 50ML 50 ML IV SCH ×3 (13:03→23:42)
--- NOTE | 2018-02-11 13:53 | PDOC ---
SUBJECTIVE ROS Intubated and sedated,got lasix last night Hypotensive, on Levophed 5mcg OBJECTIVE Vital Signs Vital Signs Date Time Temp Pulse Resp B/P (MAP) Pulse Ox O2 Delivery O2 Flow Rate FiO2 02/11/18 11:40 100 Ventilator 02/11/18 11:00 110 22 92/73 (79) 02/11/18 08:00 99.2 99.2 I & 0 Intake and Output 02/11/18 07:00 Intake Total 1257 ml Output Total 1080 ml Balance 177 ml Intake Oral 0 ml IV Total 907 ml Tube Feeding 325 ml Other 25 ml Output Urine Total 1080 ml Gastric Drainage Total 0 ml PHYSICAL EXAM Physical Exam GENERAL: Intubated and sedated HEENT: ETT, OGT LUNGS: Clear to auscultation. HEART: S1, S2. ABDOMEN: Obese, soft. GENITOURINARY: Indwelling Forman EXTREMITIES: Trace edema Bilat LE SKIN: No Rash NEUROLOGIC: Unresponsive/sedated DIAGNOSIS/ASSESSMENT Assessment & Plan Acute renal failure --Non Oliguric, sepsis / cardiorenal- likely acute tubular necrosis Hypotensive on Pressor Worsening renal function , UOP stable Lytes and acid base stable, Currently No emergent indication for HD Monitor CKD stage 3- likely based on previous labs in the system Hypokalemia- Mild, replace as needed Hypernatremia- Mild Increase free water flushes with Tube feed Non-ST elevation myocardial infarction. Troponin up to 44.56 now. echo pending Acute diastolic heart failure. Paroxysmal atrial fibrillation. Discussed with RN at bedside COMMENT/RELEVANT DATA Meds Current Medications Medications (Trade) Dose Ordered Sig/Sravan Start Time Stop Time Status Last Admin Dose Admin Acetaminophen (Tylenol Supp) 325 mg PRN Q6HRS PRN 02/09/18 06:45 02/09/18 09:30 325 MG Acetaminophen (Tylenol) 500 mg BID 02/09/18 10:00 02/09/18 10:16 DC Acetaminophen/ Hydrocodone Bitart (Lortab 10/325) 1 tab PRN Q4HRS PRN 02/09/18 09:00 Albuterol Sulfate (Ventolin Neb Soln) 2.5 mg RTQID 02/09/18 12:00 02/10/18 16:26 2.5 MG Albuterol/ Ipratropium (Duoneb) 3 ml 1X ONCE 02/08/18 16:00 02/08/18 16:01 DC 02/08/18 17:14 3 ML Aspirin (Radha Aspirin) 325 mg DAILY 02/09/18 09:00 02/09/18 10:16 DC Aspirin (Children'S Aspirin) 324 mg 1X ONCE 02/08/18 16:30 02/08/18 16:31 DC 02/08/18 16:36 324 MG Atorvastatin Calcium (Lipitor) 10 mg HS 02/09/18 21:00 02/09/18 21:00 DC Budesonide (Pulmicort) 0.5 mg RTBID 02/09/18 08:00 02/11/18 08:59 0.5 MG Citalopram Hydrobromide (CeleXA) 40 mg QHS 02/09/18 21:00 02/09/18 21:00 DC Clonidine HCl (Catapres) 0.1 mg QHS 02/08/18 22:00 02/09/18 10:16 DC 02/08/18 22:05 0.1 MG Docusate Sodium (Colace) 100 mg BID 02/09/18 09:00 02/09/18 10:16 DC Ephedrine Sulfate (ePHEDrine PF IN SALINE SYRINGE) 50 mg STK-MED ONCE 02/09/18 07:00 02/11/18 07:43 DC Famotidine (Pepcid Vial) 20 mg QHS 02/09/18 21:00 02/10/18 22:16 20 MG Fentanyl Citrate 30 ml @ 0 mls/hr CONT PRN 02/09/18 20:30 02/11/18 03:47 2.5 MLS/HR Furosemide (Lasix) 60 mg 1X ONCE 02/09/18 20:00 02/09/18 20:01 DC 02/09/18 20:16 60 MG Gabapentin (Neurontin) 300 mg TID 02/08/18 22:20 02/09/18 10:16 DC 02/08/18 22:08 300 MG Heparin Sodium (Porcine) (Heparin Sodium) 1,800 unit PRN Q6HRS PRN 02/08/18 17:30 02/08/18 20:10 1,800 UNIT Heparin Sodium/ Dextrose 500 ml @ 0 mls/hr CONT PRN 02/08/18 17:30 02/10/18 00:59 14.3 MLS/HR Hydrochlorothiazide (Microzide) 12.5 mg QHS 02/09/18 21:00 02/09/18 21:00 DC Info (Anti-Coagulation Monitoring By Pharmacy) 1 each PRN DAILY PRN 02/08/18 17:30 02/11/18 12:25 1 EACH Ipratropium [place] (Atrovent) 0.5 mg RTQID 02/09/18 08:00 02/11/18 11:40 0.5 MG Labetalol HCl (Normodyne Iv Push) 10 mg PRN Q2HR PRN 02/09/18 09:00 02/09/18 09:06 DC Lorazepam (Ativan) 1 mg PRN Q4HRS PRN 02/08/18 21:30 02/09/18 01:49 1 MG Magnesium Hydroxide (Milk Of Magnesia) 400 mg DAILY 02/09/18 09:00 02/11/18 08:18 400 MG Magnesium Oxide (Magnesium Oxide) 400 mg DAILY 02/09/18 10:00 02/11/18 08:18 400 MG Magnesium Sulfate/ Dextrose 100 ml @ 25 mls/hr 1X ONCE 02/08/18 22:00 02/09/18 01:59 DC 02/08/18 22:03 25 MLS/HR Methylprednisolone Sodium Succinate (SOLU-Medrol 40MG VIAL) 40 mg Q12HR 02/10/18 09:00 02/11/18 08:18 40 MG Midazolam HCl 100 ml @ 5 mls/hr CONT PRN 02/09/18 22:00 02/11/18 03:47 5 MLS/HR Morphine Sulfate (Morphine Sulfate) 4 mg PRN Q4HRS PRN 02/08/18 21:30 02/09/18 19:45 4 MG Multivitamins (Thera M Plus) 1 tab DAILY 02/09/18 10:00 02/09/18 10:16 DC Nicotine (Nicoderm Cq 14mg) 1 patch DAILY 02/09/18 10:00 02/11/18 08:18 1 PATCH Non-Formulary Medication (Acetaminophen ) 1 tab BID 02/09/18 09:00 02/09/18 09:12 DC Non-Formulary Medication (Albuterol Sulfate (Albuterol Sulfate Neb Soln)) 1 vial QID 02/09/18 09:00 02/09/18 09:22 DC Non-Formulary Medication (Magnesium Oxide ) 1 tab DAILY 02/09/18 09:00 02/09/18 09:14 DC Non-Formulary Medication (Multivitamin (Multivitamins)) 1 tab DAILY 02/09/18 09:00 02/09/18 09:14 DC Non-Formulary Medication (Polyethylene Glycol 3350 (Miralax)) 1 packet DAILY 02/09/18 09:00 02/09/18 09:17 DC Norepinephrine Bitartrate 250 ml @ 1.875 mls/ hr CONT PRN 02/10/18 02:45 02/11/18 05:45 11.25 MLS/HR Ondansetron HCl (Zofran Odt) 4 mg Q6HRS 02/09/18 12:00 02/11/18 05:37 4 MG Ondansetron HCl (Zofran) 4 mg PRN Q6HRS PRN 02/09/18 09:00 Oxycodone HCl (OxyCONTIN) 10 mg BID 02/09/18 09:00 02/09/18 10:16 DC Oxycodone/ Acetaminophen (Percocet 5/325) 1 tab BID 02/09/18 09:00 02/09/18 10:16 DC Phenylephrine HCl (PHENYLEPHRINE in 0.9% NACL PF) 1 mg STK-MED ONCE 02/09/18 07:00 02/11/18 07:43 DC Piperacillin Sod/ Tazobactam Sod (Zosyn Per Pharmacy) 1 each PRN DAILY PRN 02/08/18 16:15 Piperacillin Sod/ Tazobactam Sod 2.25 gm/Sodium Chloride 50 ml @ 100 mls/hr Q6HRS 02/11/18 12:00 02/11/18 13:03 100 MLS/HR Piperacillin Sod/ Tazobactam Sod 3.375 gm/Sodium Chloride 50 ml @ 100 mls/hr Q6HRS 02/09/18 00:00 02/11/18 07:14 DC 02/11/18 05:37 100 MLS/HR Polyethylene Glycol (miraLAX PACKET) 17 gm DAILY 02/09/18 10:00 02/09/18 10:16 DC Propofol (Diprivan) 200 mg STK-MED ONCE 02/09/18 07:00 02/11/18 07:43 DC Quetiapine Fumarate (SEROquel) 25 mg QHS 02/09/18 21:00 02/09/18 21:00 DC Rocuronium [place] (Zemuron) 50 mg STK-MED ONCE 02/09/18 21:00 02/11/18 08:22 DC Succinylcholine Chloride (Anectine) 200 mg STK-MED ONCE 02/09/18 07:00 02/11/18 07:43 DC Tramadol HCl (Ultram) 50 mg PRN DAILY PRN 02/09/18 09:00 Vancomycin HCl (Vanco Per Pharmacy) 1 each PRN DAILY PRN 02/08/18 16:15 02/10/18 09:07 DC 02/09/18 08:59 1 EACH Vancomycin HCl (Vancomycin Trough Level) 1 each 1X ONCE 02/10/18 16:00 02/10/18 16:00 DC Vancomycin HCl 1.75 gm/Sodium Chloride 500 ml @ 250 mls/hr 1X ONCE 02/08/18 17:00 02/08/18 18:59 DC 02/08/18 16:36 250 MLS/HR Vancomycin HCl 1 gm/Sodium Chloride 250 ml @ 250 mls/hr Q24H 02/09/18 16:30 02/10/18 09:07 DC 02/09/18 16:30 250 MLS/HR Lab Laboratory Tests Test 02/10/18 14:54 02/10/18 15:07 02/10/18 21:20 02/11/18 05:20 Heparin Anti-Xa Act, Unfractionated 0.63 IU/mL (0.30-0.70) 0.69 IU/mL (0.30-0.70) 0.57 IU/mL (0.30-0.70) Glucose (Fingerstick) 96 mg/dL (70-99) White Blood Count 4.3 x10^3/uL (4.0-11.0) Red Blood Count 4.02 x10^6/uL (3.50-5.40) Hemoglobin 12.4 g/dL (12.0-15.5) Hematocrit 36.4 % (36.0-47.0) Mean Corpuscular Volume 90 fL (79-100) Mean Corpuscular Hemoglobin 31 pg (25-35) Mean Corpuscular Hemoglobin Concent 34 g/dL (31-37) Red Cell Distribution Width 16.8 % (11.5-14.5) Platelet Count 202 x10^3/uL (140-400) Sodium Level 147 mmol/L (136-145) Potassium Level 3.3 mmol/L (3.5-5.1) Chloride Level 109 mmol/L (98-107) Carbon Dioxide Level 25 mmol/L (21-32) Anion Gap 13 (6-14) Blood Urea Nitrogen 68 mg/dL (7-20) Creatinine 2.4 mg/dL (0.6-1.0) Estimated GFR (Cockcroft-Gault) 20.2 Glucose Level 161 mg/dL (70-99) Calcium Level 7.9 mg/dL (8.5-10.1) Test 02/11/18 09:00 O2 Saturation 95 % (92-99) Arterial Blood pH 7.44 (7.35-7.45) Arterial Blood pCO2 at Patient Temp 34 mmHg (35-46) Arterial Blood pO2 at Patient Temp 82 mmHg (65-108) Arterial Blood HCO3 23 mmol/L (21-28) Arterial Blood Base Excess -1 mmol/L (-3-3) FiO2 40 Results All relevant outside records, renal labs, imaging studies, telemetry/EKG's were reviewed. VINH BLACKBURN MD Feb 11, 2018 13:53
--- NOTE | 2018-02-11 14:54 | PDOC ---
PROGRESS NOTES Subjective Subjective Patient seen and examined She remains intubated on a ventilator. Objective Objective Vital Signs Date Time Temp Pulse Resp B/P (MAP) Pulse Ox O2 Delivery O2 Flow Rate FiO2 02/11/18 13:00 106 21 86/67 (73) 100 Ventilator 02/11/18 12:00 97.8 97.8 Intake and Output 02/11/18 07:00 Intake Total 1257 ml Output Total 1080 ml Balance 177 ml Intake Oral 0 ml IV Total 907 ml Tube Feeding 325 ml Other 25 ml Output Urine Total 1080 ml Gastric Drainage Total 0 ml Physical Exam Abdomen: Normal bowel sounds Heart: Regular rate General: Other (intubated on a ventilator.) Lungs: Other (decreased breath sounds) Assessment Assessment Problems Medical Problems: (1) CHF (congestive heart failure) Status: Acute (2) Elevated troponin Status: Acute (3) Heart failure Status: Acute (4) Respiratory failure Status: Acute (5) Shortness of breath Status: Acute 1. Acute hypoxic respiratory failure. Patient had refused intubation but changed her mind and was intubated 2 days ago. Remains on the vent. Continuing as per the pulmonary service. 2. Acute diastolic heart failure. BNP of greater than 35,000. We'll attempt mild diuresis based on the patient's clinical course. However creatinine has elevated. Renal has been consulted. Echocardiogram shows an EF of 50%. 3. Severe multi-region peripheral vascular disease as above. We'll continue on present treatments at this time. On heparin. 4. Non-ST elevated myocardial infarction. Peak troponin of 44. Echo as above. Creatinine now elevated. At this time will continue on medical treatment. 5. History of paroxysmal atrial fibrillation. Now in sinus rhythm. We'll continue to monitor. 6. History of a previous CVA. Comment Review of Relevant I have reviewed the following items pat (where applicable) has been applied. Labs Laboratory Tests Test 02/09/18 22:00 02/10/18 05:15 02/10/18 08:41 02/10/18 14:54 O2 Saturation 79 % (92-99) 98 % (92-99) Arterial Blood pH 7.27 (7.35-7.45) 7.44 (7.35-7.45) Arterial Blood pCO2 at Patient Temp 52 mmHg (35-46) 35 mmHg (35-46) Arterial Blood pO2 at Patient Temp 51 mmHg (65-108) 115 mmHg (65-108) Arterial Blood HCO3 24 mmol/L (21-28) 23 mmol/L (21-28) Arterial Blood Base Excess -4 mmol/L (-3-3) -1 mmol/L (-3-3) FiO2 100 70 White Blood Count 8.4 x10^3/uL (4.0-11.0) Red Blood Count 4.39 x10^6/uL (3.50-5.40) Hemoglobin 13.4 g/dL (12.0-15.5) Hematocrit 39.8 % (36.0-47.0) Mean Corpuscular Volume 91 fL (79-100) Mean Corpuscular Hemoglobin 31 pg (25-35) Mean Corpuscular Hemoglobin Concent 34 g/dL (31-37) Red Cell Distribution Width 17.4 % (11.5-14.5) Platelet Count 199 x10^3/uL (140-400) Neutrophils (%) (Auto) 82 % (31-73) Lymphocytes (%) (Auto) 14 % (24-48) Monocytes (%) (Auto) 3 % (0-9) Eosinophils (%) (Auto) 0 % (0-3) Basophils (%) (Auto) 1 % (0-3) Neutrophils # (Auto) 6.9 x10^3uL (1.8-7.7) Lymphocytes # (Auto) 1.2 x10^3/uL (1.0-4.8) Monocytes # (Auto) 0.3 x10^3/uL (0.0-1.1) Eosinophils # (Auto) 0.0 x10^3/uL (0.0-0.7) Basophils # (Auto) 0.1 x10^3/uL (0.0-0.2) Platelet Estimate Adequate (ADEQUATE) Large Platelets Present Heparin Anti-Xa Act, Unfractionated 0.72 IU/mL (0.30-0.70) 0.63 IU/mL (0.30-0.70) Sodium Level 144 mmol/L (136-145) Potassium Level 3.2 mmol/L (3.5-5.1) Chloride Level 104 mmol/L (98-107) Carbon Dioxide Level 27 mmol/L (21-32) Anion Gap 13 (6-14) Blood Urea Nitrogen 45 mg/dL (7-20) Creatinine 2.1 mg/dL (0.6-1.0) Estimated GFR (Cockcroft-Gault) 23.6 BUN/Creatinine Ratio 21 (6-20) Glucose Level 114 mg/dL (70-99) Calcium Level 7.9 mg/dL (8.5-10.1) Magnesium Level 2.2 mg/dL (1.8-2.4) Total Bilirubin 0.3 mg/dL (0.2-1.0) Aspartate Amino Transf (AST/SGOT) 187 U/L (15-37) Alanine Aminotransferase (ALT/SGPT) 34 U/L (14-59) Alkaline Phosphatase 52 U/L (46-116) Troponin I Quantitative 44.560 ng/mL (0.000-0.055) Total Protein 6.2 g/dL (6.4-8.2) Albumin 2.7 g/dL (3.4-5.0) Albumin/Globulin Ratio 0.8 (1.0-1.7) Test 02/10/18 15:07 02/10/18 21:20 18 05:20 02/11/18 09:00 Glucose (Fingerstick) 96 mg/dL (70-99) Heparin Anti-Xa Act, Unfractionated 0.69 IU/mL (0.30-0.70) 0.57 IU/mL (0.30-0.70) White Blood Count 4.3 x10^3/uL (4.0-11.0) Red Blood Count 4.02 x10^6/uL (3.50-5.40) Hemoglobin 12.4 g/dL (12.0-15.5) Hematocrit 36.4 % (36.0-47.0) Mean Corpuscular Volume 90 fL (79-100) Mean Corpuscular Hemoglobin 31 pg (25-35) Mean Corpuscular Hemoglobin Concent 34 g/dL (31-37) Red Cell Distribution Width 16.8 % (11.5-14.5) Platelet Count 202 x10^3/uL (140-400) Sodium Level 147 mmol/L (136-145) Potassium Level 3.3 mmol/L (3.5-5.1) Chloride Level 109 mmol/L (98-107) Carbon Dioxide Level 25 mmol/L (21-32) Anion Gap 13 (6-14) Blood Urea Nitrogen 68 mg/dL (7-20) Creatinine 2.4 mg/dL (0.6-1.0) Estimated GFR (Cockcroft-Gault) 20.2 Glucose Level 161 mg/dL (70-99) Calcium Level 7.9 mg/dL (8.5-10.1) O2 Saturation 95 % (92-99) Arterial Blood pH 7.44 (7.35-7.45) Arterial Blood pCO2 at Patient Temp 34 mmHg (35-46) Arterial Blood pO2 at Patient Temp 82 mmHg (65-108) Arterial Blood HCO3 23 mmol/L (21-28) Arterial Blood Base Excess -1 mmol/L (-3-3) FiO2 40 Test 02/11/18 13:45 Heparin Anti-Xa Act, Unfractionated 0.40 IU/mL (0.30-0.70) Laboratory Tests Test 02/10/18 14:54 02/10/18 15:07 02/10/18 21:20 02/11/18 05:20 Heparin Anti-Xa Act, Unfractionated 0.63 IU/mL (0.30-0.70) 0.69 IU/mL (0.30-0.70) 0.57 IU/mL (0.30-0.70) Glucose (Fingerstick) 96 mg/dL (70-99) White Blood Count 4.3 x10^3/uL (4.0-11.0) Red Blood Count 4.02 x10^6/uL (3.50-5.40) Hemoglobin 12.4 g/dL (12.0-15.5) Hematocrit 36.4 % (36.0-47.0) Mean Corpuscular Volume 90 fL (79-100) Mean Corpuscular Hemoglobin 31 pg (25-35) Mean Corpuscular Hemoglobin Concent 34 g/dL (31-37) Red Cell Distribution Width 16.8 % (11.5-14.5) Platelet Count 202 x10^3/uL (140-400) Sodium Level 147 mmol/L (136-145) Potassium Level 3.3 mmol/L (3.5-5.1) Chloride Level 109 mmol/L (98-107) Carbon Dioxide Level 25 mmol/L (21-32) Anion Gap 13 (6-14) Blood Urea Nitrogen 68 mg/dL (7-20) Creatinine 2.4 mg/dL (0.6-1.0) Estimated GFR (Cockcroft-Gault) 20.2 Glucose Level 161 mg/dL (70-99) Calcium Level 7.9 mg/dL (8.5-10.1) Test 02/11/18 09:00 02/11/18 13:45 O2 Saturation 95 % (92-99) Arterial Blood pH 7.44 (7.35-7.45) Arterial Blood pCO2 at Patient Temp 34 mmHg (35-46) Arterial Blood pO2 at Patient Temp 82 mmHg (65-108) Arterial Blood HCO3 23 mmol/L (21-28) Arterial Blood Base Excess -1 mmol/L (-3-3) FiO2 40 Heparin Anti-Xa Act, Unfractionated 0.40 IU/mL (0.30-0.70) Microbiology 02/08/18 Blood Culture - Preliminary, Resulted NO GROWTH AFTER 2 DAYS Medications Current Medications Albuterol/ Ipratropium (Duoneb) 3 ml 1X ONCE NEB Last administered on at 17:14; Start 02/08/18 at 16:00; Stop 02/08/18 at 16:01; Status DC Vancomycin HCl (Vanco Per Pharmacy) 1 each PRN DAILY PRN MC SEE COMMENTS Last administered on 02/09/18at 08:59; Start 02/08/18 at 16:15; Stop 02/10/18 at 09 :07; Status DC Piperacillin Sod/ Tazobactam Sod (Zosyn Per Pharmacy) 1 each PRN DAILY PRN MC SEE COMMENTS; Start 02/08/18 at 16:15 Vancomycin HCl 1.75 gm/Sodium Chloride 500 ml @ 250 mls/hr 1X ONCE IV Last administered on 02/08/18at 16:36; Start 02/08/18 at 17:00; Stop 02/08/18 at 18 :59; Status DC Piperacillin Sod/ Tazobactam Sod 3.375 gm/Sodium Chloride 50 ml @ 100 mls/hr 1X ONCE IV Last administered on 02/08/18at 16:36; Start 02/08/18 at 16:30; Stop 02/08/18 at 16:59; Status DC Furosemide (Lasix) 20 mg 1X ONCE IVP Last administered on 02/08/18at 16:36; Start 02/08/18 at 16:30; Stop 02/08/18 at 16:31; Status DC Aspirin (Children'S Aspirin) 324 mg 1X ONCE PO Last administered on at 16:36; Start 02/08/18 at 16:30; Stop 02/08/18 at 16:31; Status DC Furosemide (Lasix) 20 mg 1X ONCE IVP Last administered on 02/08/18at 18:07; Start 02/08/18 at 17:00; Stop 02/08/18 at 17:01; Status DC Ondansetron HCl (Zofran) 4 mg 1X ONCE IV Last administered on 02/08/18at 17:00 ; Start 02/08/18 at 17:00; Stop 02/08/18 at 17:01; Status DC Ondansetron HCl (Zofran) 4 mg STK-MED ONCE .ROUTE ; Start 02/08/18 at 16:51; Stop 02/08/18 at 16:52; Status DC Heparin Sodium/ Dextrose 500 ml @ 0 mls/hr CONT PRN IV SEE I/O RECORD; Start 02/08/18 at 17:30; Status UNV Info (Anti-Coagulation Monitoring By Pharmacy) 1 each PRN DAILY PRN MC SEE COMMENTS Last administered on 02/11/18at 12:25; Start 02/08/18 at 17:30 Heparin Sodium/ Dextrose 500 ml @ 0 mls/hr CONT PRN IV SEE I/O RECORD Last administered on 02/10/18at 00:59; Start 02/08/18 at 17:30 Heparin Sodium (Porcine) (Heparin Sodium) 1,800 unit PRN Q6HRS PRN IV FOR UFH LEVEL LESS THAN 0.2 Last administered on 02/08/18at 20:10; Start 02/08/18 at 17 :30 Ondansetron HCl (Zofran) 4 mg 1X PRN PRN IV NAUSEA/VOMITING; Start 02/08/18 at 18:00; Stop 02/09/18 at 09:06; Status DC Piperacillin Sod/ Tazobactam Sod 3.375 gm/Sodium Chloride 50 ml @ 100 mls/hr Q6HRS IV Last administered on 02/11/18at 05:37; Start 02/09/18 at 00:00; Stop 02/11/18 at 07:14; Status DC Vancomycin HCl 1 gm/Sodium Chloride 250 ml @ 250 mls/hr Q24H IV Last administered on 02/09/18at 16:30; Start 02/09/18 at 16:30; Stop 02/10/18 at 09 :07; Status DC Vancomycin HCl (Vancomycin Trough Level) 1 each 1X ONCE MC ; Start 02/10/18 at 16:00; Stop 02/10/18 at 16:00; Status DC Magnesium Sulfate/ Dextrose 100 ml @ 25 mls/hr 1X ONCE IV Last administered on 02/08/18at 22:03; Start 02/08/18 at 22:00; Stop 02/09/18 at 01:59; Status DC Aspirin (Radha Aspirin) 325 mg DAILY PO ; Start 02/09/18 at 09:00; Stop at 10:16; Status DC Atorvastatin Calcium (Lipitor) 10 mg HS PO ; Start 02/09/18 at 21:00; Stop at 21:00; Status DC Clonidine HCl (Catapres) 0.1 mg QHS PO Last administered on 02/08/18at 22:05; Start 02/08/18 at 22:00; Stop 02/09/18 at 10:16; Status DC Docusate Sodium (Colace) 100 mg BID PO ; Start 02/09/18 at 09:00; Stop at 10:16; Status DC Gabapentin (Neurontin) 300 mg TID PO Last administered on 02/08/18at 22:08; Start 02/08/18 at 22:20; Stop 02/09/18 at 10:16; Status DC Labetalol HCl (Normodyne Iv Push) 10 mg PRN Q2HR PRN IVP HYPERTENSION, SEE COMMENTS Last administered on 02/09/18at 18:06; Start 02/08/18 at 21:30 Lorazepam (Ativan) 1 mg PRN Q4HRS PRN IV ANXIETY / AGITATION Last administered on 02/09/18at 01:49; Start 02/08/18 at 21:30 Morphine Sulfate (Morphine Sulfate) 4 mg PRN Q4HRS PRN IV PAIN Last administered on 02/09/18at 19:45; Start 02/08/18 at 21:30 Acetaminophen (Tylenol Supp) 325 mg PRN Q6HRS PRN ID MILD PAIN / TEMP Last administered on 02/09/18at 09:30; Start 02/09/18 at 06:45 Ipratropium [place] (Atrovent) 0.5 mg RTQID NEB Last administered on at 11:40; Start 02/09/18 at 08:00 Budesonide (Pulmicort) 0.5 mg RTBID NEB Last administered on 02/11/18at 08:59; Start 02/09/18 at 08:00 Famotidine (Pepcid Vial) 20 mg QHS IVP Last administered on 02/10/18at 22:16; Start 02/09/18 at 21:00 Acetaminophen (Tylenol) 500 mg PRN Q6HRS PRN PO FEVER/KUO; Start 02/09/18 at 09 :00 Ondansetron HCl (Zofran) 4 mg PRN Q6HRS PRN IV NAUSEA/VOMITING; Start at 09:00 Ondansetron HCl (Zofran Odt) 4 mg PRN Q6HRS PRN PO NAUSEA/VOMITING; Start at 09:00 Acetaminophen/ Hydrocodone Bitart (Lortab 10/325) 1 tab PRN Q4HRS PRN PO MODERATE PAIN; Start 02/09/18 at 09:00 Magnesium Hydroxide (Milk Of Magnesia) 400 mg DAILY PO Last administered on at 08:18; Start 02/09/18 at 09:00 Oxycodone HCl (OxyCONTIN) 10 mg BID PO ; Start 02/09/18 at 09:00; Stop at 10:16; Status DC Oxycodone/ Acetaminophen (Percocet 5/325) 1 tab BID PO ; Start 02/09/18 at 09: 00; Stop 02/09/18 at 10:16; Status DC Tramadol HCl (Ultram) 50 mg PRN DAILY PRN PO MILD PAIN; Start 02/09/18 at 09: 00 Non-Formulary Medication (Acetaminophen ) 1 tab BID PO ; Start 02/09/18 at 09: 00; Stop 02/09/18 at 09:12; Status DC Non-Formulary Medication (Albuterol Sulfate (Albuterol Sulfate Neb Soln)) 1 vial QID NEB ; Start 02/09/18 at 09:00; Stop 02/09/18 at 09:22; Status DC Citalopram Hydrobromide (CeleXA) 40 mg QHS PO ; Start 02/09/18 at 21:00; Stop 02/09/18 at 21:00; Status DC Hydrochlorothiazide (Microzide) 12.5 mg QHS PO ; Start 02/09/18 at 21:00; Stop 02/09/18 at 21:00; Status DC Non-Formulary Medication (Magnesium Oxide ) 1 tab DAILY PO ; Start 02/09/18 at 09:00; Stop 02/09/18 at 09:14; Status DC Non-Formulary Medication (Multivitamin (Multivitamins)) 1 tab DAILY PO ; Start 02/09/18 at 09:00; Stop 02/09/18 at 09:14; Status DC Nicotine (Nicoderm Cq 14mg) 1 patch DAILY TD Last administered on 02/11/18at 08 :18; Start 02/09/18 at 10:00 Ondansetron HCl (Zofran Odt) 4 mg Q6HRS PO Last administered on 02/11/18at 05: 37; Start 02/09/18 at 12:00 Non-Formulary Medication (Polyethylene Glycol 3350 (Miralax)) 1 packet DAILY PO ; Start 02/09/18 at 09:00; Stop 02/09/18 at 09:17; Status DC Quetiapine Fumarate (SEROquel) 25 mg QHS PO ; Start 02/09/18 at 21:00; Stop at 21:00; Status DC Labetalol HCl (Normodyne Iv Push) 10 mg PRN Q2HR PRN IVP HYPERTENSION, SEE COMMENTS; Start 02/09/18 at 09:00; Stop 02/09/18 at 09:06; Status DC Acetaminophen (Tylenol) 500 mg BID PO ; Start 02/09/18 at 10:00; Stop at 10:16; Status DC Magnesium Oxide (Magnesium Oxide) 400 mg DAILY PO Last administered on at 08:18; Start 02/09/18 at 10:00 Multivitamins (Thera M Plus) 1 tab DAILY PO ; Start 02/09/18 at 10:00; Stop at 10:16; Status DC Polyethylene Glycol (miraLAX PACKET) 17 gm DAILY PO ; Start 02/09/18 at 10:00; Stop 02/09/18 at 10:16; Status DC Albuterol Sulfate (Ventolin Neb Soln) 2.5 mg RTQID NEB Last administered on at 16:26; Start 02/09/18 at 12:00 Furosemide (Lasix) 60 mg 1X ONCE IVP Last administered on 02/09/18at 20:16; Start 02/09/18 at 20:00; Stop 02/09/18 at 20:01; Status DC Rocuronium [place] (Zemuron) 50 mg STK-MED ONCE .ROUTE ; Start 02/09/18 at 20: 23; Stop 02/09/18 at 20:24; Status DC Fentanyl Citrate 30 ml @ 0 mls/hr CONT PRN IV SEE PROTOCOL Last administered on 02/11/18at 03:47; Start 02/09/18 at 20:30 Propofol 100 ml @ 0 mls/hr CONT PRN IV SEE PROTOCOL Last administered on at 22:08; Start 02/09/18 at 20:30 Midazolam HCl 100 ml @ 5 mls/hr CONT PRN IV SEE I/O RECORD Last administered on 02/11/18at 03:47; Start 02/09/18 at 22:00 Norepinephrine Bitartrate 250 ml @ As Directed STK-MED ONCE IV ; Start at 02:33; Stop 02/10/18 at 02:35; Status DC Norepinephrine Bitartrate 250 ml @ 1.875 mls/ hr CONT PRN IV SEE I/O RECORD Last administered on 02/11/18at 05:45; Start 02/10/18 at 02:45 Methylprednisolone Sodium Succinate (SOLU-Medrol 40MG VIAL) 40 mg Q12HR IV Last administered on 02/11/18at 08:18; Start 02/10/18 at 09:00 Piperacillin Sod/ Tazobactam Sod 2.25 gm/Sodium Chloride 50 ml @ 100 mls/hr Q6HRS IV Last administered on 02/11/18at 13:03; Start 02/11/18 at 12:00 Propofol (Diprivan) 200 mg STK-MED ONCE IV ; Start 02/09/18 at 07:00; Stop at 07:43; Status DC Succinylcholine Chloride (Anectine) 200 mg STK-MED ONCE .ROUTE ; Start at 07:00; Stop 02/11/18 at 07:43; Status DC Phenylephrine HCl (PHENYLEPHRINE in 0.9% NACL PF) 1 mg STK-MED ONCE IV ; Start 02/09/18 at 07:00; Stop 02/11/18 at 07:43; Status DC Ephedrine Sulfate (ePHEDrine PF IN SALINE SYRINGE) 50 mg STK-MED ONCE IV ; Start 02/09/18 at 07:00; Stop 02/11/18 at 07:43; Status DC Rocuronium [place] (Zemuron) 50 mg STK-MED ONCE .ROUTE ; Start 02/09/18 at 21: 00; Stop 02/11/18 at 08:22; Status DC Active Scripts Active Percocet 5-325 Mg Tablet (Oxycodone/Acetaminophen) 1 Each Tablet 1 Tab PO BID 3 Days Reported Zofran (Ondansetron Hcl) 4 Mg Tablet 1 Tab PO Q6HRS Milk Of Magnesia (Magnesium Hydroxide) 400 Mg/5 Ml Oral.susp 400 Mg PO Acetaminophen 500 Mg Tablet 1 Tab PO BID Clonidine Hcl 0.1 Mg Tablet 1 Tab PO QHS Tramadol Hcl 50 Mg Tablet 50 Mg PO DAILY PRN Hydralazine Hcl 20 Mg/1 Ml Vial 20 Mg IJ Gabapentin (Gabapentin) 300 Mg Capsule 300 Mg PO TID Acidophilus (Lactobacillus Acidophilus) 1 Each Capsule 1 Each PO Atorvastatin Calcium 10 Mg Tablet 1 Tab PO DAILY Vitamin C (Ascorbic Acid) 500 Mg Tablet.er 500 Mg PO Aspirin 325 Mg Tablet 1 Tab PO DAILY Colace (Docusate Sodium) 100 Mg Capsule 1 Cap PO BID Magnesium Oxide 400 Mg Tablet 1 Tab PO DAILY Multivitamins (Multivitamin) 1 Each Tablet 1 Tab PO DAILY NICODERM CQ 14mg (Nicotine) 1 Each Patch.td24 1 Patch TP DAILY Miralax (Polyethylene Glycol 3350) 17 Gm Powd.pack 1 Packet PO DAILY Albuterol Sulfate Neb Soln (Albuterol Sulfate) 0.63 Mg/3 Ml Vial.neb 1 Vial NEB QID Prednisone 20 Mg Tablet 1 Tab PO DAILY Seroquel (Quetiapine Fumarate) 25 Mg Tablet 1 Tab PO QHS Hydrochlorothiazide Tablet (Hydrochlorothiazide) 12.5 Mg Tablet 1 Tab PO QHS Lexapro (Escitalopram Oxalate) 20 Mg Tablet 1 Tab PO QHS Hydrocodone-Apap 10-325 (Hydrocodone Bit/Acetaminophen) 1 Each Tablet 1 Tab PO PRN Q4HRS Oxycontin (Oxycodone HCl) 10 Mg Tab.er.12h 10 Mg PO BID Vitals/I & O Vital Sign - Last 24 Hours 02/10/18 02/10/18 02/10/18 02/10/18 15:00 15:24 16:00 16:27 Pulse 112 Resp 22 25 B/P (MAP) 88/59 (69) 108/64 (79) Pulse Ox 50 50 98 O2 Delivery Ventilator Ventilator Mechanical Ventilator Ventilator 02/10/18 02/10/18 02/10/18 02/10/18 16:30 16:34 17:00 17:04 Pulse 110 112 Resp 22 24 B/P (MAP) 79/52 (61) 136/66 (89) Pulse Ox 40 98 40 98 O2 Delivery Ventilator Ventilator 02/10/18 02/10/18 02/10/18 02/10/18 17:58 18:00 19:00 20:00 Temp 99.2 99.2 Pulse 112 112 113 Resp 22 25 23 B/P (MAP) 144/85 (104) 101/70 (80) 91/71 (78) Pulse Ox 98 40 99 99 O2 Delivery Ventilator Ventilator Ventilator Ventilator 02/10/18 02/10/18 02/10/18 02/10/18 20:00 20:04 20:04 21:00 Pulse 110 Resp 24 B/P (MAP) 81/60 (67) Pulse Ox 98 98 99 O2 Delivery Mechanical Ventilator Ventilator Ventilator Ventilator 02/10/18 02/10/18 02/10/18 02/10/18 22:00 23:00 23:08 23:59 Pulse 107 112 Resp 23 22 B/P (MAP) 86/61 (69) 116/70 (85) Pulse Ox 99 99 98 O2 Delivery Ventilator Ventilator Ventilator Mechanical Ventilator 02/11/18 02/11/18 02/11/18 02/11/18 00:00 01:00 01:34 02:00 Temp 97.9 97.9 Pulse 106 108 104 Resp 22 22 22 B/P (MAP) 96/67 (77) 127/77 (94) 109/72 (84) Pulse Ox 99 99 98 98 O2 Delivery Ventilator Ventilator Ventilator Ventilator 02/11/18 02/11/18 02/11/18 02/11/18 03:00 03:46 03:57 04:00 Temp 99.4 99.4 Pulse 110 106 Resp 22 22 B/P (MAP) 125/77 (93) 100/69 (79) Pulse Ox 95 98 100 O2 Delivery Ventilator Ventilator Mechanical Ventilator Ventilator 02/11/18 02/11/18 02/11/18 02/11/18 05:00 05:30 05:43 05:45 Pulse 107 Resp 22 B/P (MAP) 120/80 (93) 143/86 (105) 96/65 (75) Pulse Ox 98 98 O2 Delivery Ventilator Ventilator 02/11/18 02/11/18 02/11/18 02/11/18 06:00 07:00 08:00 08:00 Temp 99.2 99.2 Pulse 102 100 98 Resp 22 22 22 B/P (MAP) 91/65 (74) 100/69 (79) 93/62 (72) Pulse Ox 99 99 99 O2 Delivery Ventilator Ventilator Mechanical Ventilator Ventilator 02/11/18 02/11/18 02/11/18 02/11/18 08:59 09:00 10:00 11:00 Pulse 106 106 110 Resp 22 21 22 B/P (MAP) 130/79 (96) 82/64 (70) 92/73 (79) Pulse Ox 100 99 100 100 O2 Delivery Ventilator Ventilator Ventilator Ventilator 02/11/18 02/11/18 02/11/18 02/11/18 11:40 12:00 12:00 13:00 Temp 97.8 97.8 Pulse 112 106 Resp 21 21 B/P (MAP) 119/81 (94) 86/67 (73) Pulse Ox 100 98 100 O2 Delivery Ventilator Mechanical Ventilator Ventilator Ventilator Intake and Output 02/10/18 02/10/18 02/11/18 15:00 23:00 07:00 Intake Total 0 ml 503 ml 754 ml Output Total 500 ml 300 ml 280 ml Balance -500 ml 203 ml 474 ml Nutrition Consultation Dietary Evaluation: Recommendations by RD: Increase Calorie Intake Comments: REC TF per following: Jevity 1.5@goal rate 45 ml/hr w/25 ml water flushes q8 hrs or flushes per MD Expected Outcomes/Goals: TF for nutrition needs while pt remains intubated Interpretation of weight loss: >10% in 6 months Malnutrition Findings: Body Fat Depletion (Non Severe: Mild Depletion Weight Status: Appropriate ALEX RUDOLPH MD Feb 11, 2018 14:54
[2018-02-11] MEDS: ALBUTEROL SULFATE 2.5 MG/3 ML NEBU. NEB SCH ×2 (20:00→20:07)
[2018-02-11] MEDS: FAMOTIDINE 20 MG/2 ML VIAL IVP SCH (20:59)
[2018-02-11] MEDS: ACETAMINOPHEN 500 MG TABLET PO PRN (23:45)
[2018-02-12] VITALS (27 sets, daily range): BP systolic 84–184; BP diastolic 61–100
[2018-02-12] MEDS: MIDAZOLAM 100mg/100ml NS BAG 100 ML IV PRN (03:38)
[2018-02-12] MEDS: PIPERACILLIN/TAZOBACTAM 2.25 GM in IV NORMAL SALINE 50ML 50 ML IV SCH (05:47)
[2018-02-12] MEDS: ONDANSETRON ODT 4 MG TAB.RAPDIS. PO SCH ×3 (05:47→18:00)
[2018-02-12 06:08] LABS: BASO % 0 % (0-3); EOS % 0 % (0-3); HEMATOCRIT 34.1 % (36.0-47.0); HEMOGLOBIN 11.5 g/dL (12.0-15.5); LYMPH # 0.7 x10^3/uL (1.0-4.8); LYMPH % 14 % (24-48); MEAN CORPUSCULAR HEMOGLOBIN 31 pg (25-35); MEAN CORPUSCULAR HGB CONC 34 g/dL (31-37); MEAN CORPUSCULAR VOLUME 91 fL (79-100); MONO # 0.2 x10^3/uL (0.0-1.1); MONO % 5 % (0-9); NEUT # 3.9 x10^3uL (1.8-7.7); NEUT % 81 % (31-73); PLATELET COUNT 184 x10^3/uL (140-400); RED BLOOD COUNT 3.75 x10^6/uL (3.50-5.40); RED CELL DISTRIBUTION WIDTH 17.4 % (11.5-14.5); WHITE BLOOD COUNT 4.8 x10^3/uL (4.0-11.0)
[2018-02-12 06:16] LABS: ALBUMIN 2.1 g/dL (3.4-5.0); ALBUMIN/GLOBULIN RATIO 0.6 (1.0-1.7); CALCIUM 7.2 mg/dL (8.5-10.1); GFR 11.2; POTASSIUM 3.6 mmol/L (3.5-5.1); TOTAL BILIRUBIN 0.3 mg/dL (0.2-1.0); TOTAL PROTEIN 5.9 g/dL (6.4-8.2)
--- NOTE | 2018-02-12 07:23 | PDOC ---
Infectious Disease Note Subjective Subjective Developed worsening respiratory failure 02/09 now intubated and sedated Hypotensive, on Levophed 2 mcg No fevers times one last pm No diarrhea ROS ROS unable to obtain Vital Sign Vital Signs Vital Signs Date Time Temp Pulse Resp B/P (MAP) Pulse Ox O2 Delivery O2 Flow Rate FiO2 02/12/18 06:00 103 22 99/61 (74) 96 Ventilator 02/12/18 04:00 98.9 98.9 Physical Exam PHYSICAL EXAM GENERAL: Intubated and sedated HEENT: Pupils equally round & reactive. ETT, OGT NECK: supple LUNGS: Clear to auscultation. HEART: S1, S2. ABDOMEN: Obese, soft. No grimace or guarding to palpation. Bowel sounds present. GENITOURINARY: Indwelling Forman in place. EXTREMITIES: Trace edema in lower extremities bilaterally. No cyanosis. Mitts SKIN: Warm without rash. NEUROLOGIC: Unresponsive/sedated RIJ - clean ok Labs Lab Laboratory Tests Test 02/11/18 09:00 02/11/18 13:45 02/11/18 18:50 02/11/18 23:55 O2 Saturation 95 % (92-99) Arterial Blood pH 7.44 (7.35-7.45) Arterial Blood pCO2 at Patient Temp 34 mmHg (35-46) Arterial Blood pO2 at Patient Temp 82 mmHg (65-108) Arterial Blood HCO3 23 mmol/L (21-28) Arterial Blood Base Excess -1 mmol/L (-3-3) FiO2 40 Heparin Anti-Xa Act, Unfractionated 0.40 IU/mL (0.30-0.70) 0.34 IU/mL (0.30-0.70) Lactic Acid Level 1.1 mmol/L (0.4-2.0) Test 02/12/18 05:45 White Blood Count 4.8 x10^3/uL (4.0-11.0) Red Blood Count 3.75 x10^6/uL (3.50-5.40) Hemoglobin 11.5 g/dL (12.0-15.5) Hematocrit 34.1 % (36.0-47.0) Mean Corpuscular Volume 91 fL (79-100) Mean Corpuscular Hemoglobin 31 pg (25-35) Mean Corpuscular Hemoglobin Concent 34 g/dL (31-37) Red Cell Distribution Width 17.4 % (11.5-14.5) Platelet Count 184 x10^3/uL (140-400) Neutrophils (%) (Auto) 81 % (31-73) Lymphocytes (%) (Auto) 14 % (24-48) Monocytes (%) (Auto) 5 % (0-9) Eosinophils (%) (Auto) 0 % (0-3) Basophils (%) (Auto) 0 % (0-3) Neutrophils # (Auto) 3.9 x10^3uL (1.8-7.7) Lymphocytes # (Auto) 0.7 x10^3/uL (1.0-4.8) Monocytes # (Auto) 0.2 x10^3/uL (0.0-1.1) Eosinophils # (Auto) 0.0 x10^3/uL (0.0-0.7) Basophils # (Auto) 0.0 x10^3/uL (0.0-0.2) Sodium Level 146 mmol/L (136-145) Potassium Level 3.6 mmol/L (3.5-5.1) Chloride Level 109 mmol/L (98-107) Carbon Dioxide Level 24 mmol/L (21-32) Anion Gap 13 (6-14) Blood Urea Nitrogen 97 mg/dL (7-20) Creatinine 4.0 mg/dL (0.6-1.0) Estimated GFR (Cockcroft-Gault) 11.2 BUN/Creatinine Ratio 24 (6-20) Glucose Level 185 mg/dL (70-99) Calcium Level 7.2 mg/dL (8.5-10.1) Total Bilirubin 0.3 mg/dL (0.2-1.0) Aspartate Amino Transf (AST/SGOT) 131 U/L (15-37) Alanine Aminotransferase (ALT/SGPT) 81 U/L (14-59) Alkaline Phosphatase 38 U/L (46-116) Total Protein 5.9 g/dL (6.4-8.2) Albumin 2.1 g/dL (3.4-5.0) Albumin/Globulin Ratio 0.6 (1.0-1.7) Micro Microbiology 02/08/18 Blood Culture - Preliminary, Resulted NO GROWTH AFTER 1 DAY Objective Assessment Fever times one overnight Sepsis with lactic acidosis, present on admission.- better Acute respiratory failure, likely aspirated. s/p intubation now on Solumedrol Hypotension - on Levophed at 2 mcg ALLERGY TO METRONIDAZOLE. ANGELICA - worsing Non-ST elevation myocardial infarction. Troponin up to 44.56 now Acute diastolic heart failure. Paroxysmal atrial fibrillation. Peripheral vascular disease. History of seizures. History of Clostridium difficile, with fecal transplant. Plan Plan of Care Repeat Blood/sputum cults Add Zyvox/Micafungin Change Zosyn to Cefepime with fever - avoid Meropenem if possible with h/o Seizures F/u Blood cultures from 02/09 pending ? if previous Sputum culture -obtained Given ANGELICA avoiding vanc Monitor for loose stool given h/o C-diff Monitor labs/temp and renal function closely Expect WBC to increase with steroid Labs in am Supportive care D/w RN Critically ill AMOR ESCOBAR MD Feb 12, 2018 07:23
[2018-02-12] MEDS: BUDESONIDE 0.5 MG/2 ML NEBU. NEB SCH ×2 (08:16→19:56)
[2018-02-12] MEDS: IPRATROPIUM BROMIDE 0.5 MG/2.5 ML NEBU. NEB SCH ×4 (08:18→19:56)
[2018-02-12 08:37] LABS: BASE EXCESS ABG -3 mmol/L (-3-3); HCO3 ABG 21 mmol/L (21-28); PCO2 ABG 32 mmHg (35-46); PO2 ABG 83 mmHg (65-108); SAT O2 ABG 95 % (92-99)
[2018-02-12 08:41] LABS: FIO2 ABG 40
--- NOTE | 2018-02-12 08:57 | RAD ---
PORTABLE CHEST 1V History: Respiratory failure Comparison: February 10, 2018 Findings: AP portable view of the chest is submitted. There is enteric catheter coursing into the stomach with tip not fully seen, endotracheal tube with the tip about 6 cm from sohan, right internal jugular venous catheter with the tip near the cavoatrial junction. There is emphysema. There is hazy airspace opacity left lung base fairly similar comparing with the previous exam, also interstitial opacity with basilar predominance bilaterally probably slightly decreased on the right. There may be a small left pleural effusion. No pneumothorax is identified. Heart size is stable. Impression: 1. There is persistent similar hazy left base airspace opacity, also interstitial opacity questionably slightly decreased. There is probable small pleural effusion as seen previously. There are support catheters and tubes as stated. Electronically signed by: Marshall Aguirre MD (02/12/2018 8:53 AM) [id number]
--- NOTE | 2018-02-12 09:38 | PDOC ---
PULMONARY PROGRESS NOTES Subjective PT OFF SEDATION NOT FOLLOWING COMMANDS ON PS VT ADEQUATE ON PRESSORS Vitals Vital Signs Date Time Temp Pulse Resp B/P (MAP) Pulse Ox O2 Delivery O2 Flow Rate FiO2 02/12/18 08:21 96 Ventilator 02/12/18 07:00 99 22 86/62 (70) 02/12/18 04:00 98.9 98.9 Lungs: Crackles Cardiovascular: S1, S2 Abdomen: Soft, Non-tender Extremities: No Edema Labs Laboratory Tests Test 02/10/18 14:54 02/10/18 15:07 02/10/18 21:20 02/11/18 05:20 Heparin Anti-Xa Act, Unfractionated 0.63 IU/mL (0.30-0.70) 0.69 IU/mL (0.30-0.70) 0.57 IU/mL (0.30-0.70) Glucose (Fingerstick) 96 mg/dL (70-99) White Blood Count 4.3 x10^3/uL (4.0-11.0) Red Blood Count 4.02 x10^6/uL (3.50-5.40) Hemoglobin 12.4 g/dL (12.0-15.5) Hematocrit 36.4 % (36.0-47.0) Mean Corpuscular Volume 90 fL (79-100) Mean Corpuscular Hemoglobin 31 pg (25-35) Mean Corpuscular Hemoglobin Concent 34 g/dL (31-37) Red Cell Distribution Width 16.8 % (11.5-14.5) Platelet Count 202 x10^3/uL (140-400) Sodium Level 147 mmol/L (136-145) Potassium Level 3.3 mmol/L (3.5-5.1) Chloride Level 109 mmol/L (98-107) Carbon Dioxide Level 25 mmol/L (21-32) Anion Gap 13 (6-14) Blood Urea Nitrogen 68 mg/dL (7-20) Creatinine 2.4 mg/dL (0.6-1.0) Estimated GFR (Cockcroft-Gault) 20.2 Glucose Level 161 mg/dL (70-99) Calcium Level 7.9 mg/dL (8.5-10.1) Test 02/11/18 09:00 02/11/18 13:45 02/11/18 18:50 02/11/18 23:55 O2 Saturation 95 % (92-99) Arterial Blood pH 7.44 (7.35-7.45) Arterial Blood pCO2 at Patient Temp 34 mmHg (35-46) Arterial Blood pO2 at Patient Temp 82 mmHg (65-108) Arterial Blood HCO3 23 mmol/L (21-28) Arterial Blood Base Excess -1 mmol/L (-3-3) FiO2 40 Heparin Anti-Xa Act, Unfractionated 0.40 IU/mL (0.30-0.70) 0.34 IU/mL (0.30-0.70) Lactic Acid Level 1.1 mmol/L (0.4-2.0) Test 02/12/18 05:45 02/12/18 08:20 White Blood Count 4.8 x10^3/uL (4.0-11.0) Red Blood Count 3.75 x10^6/uL (3.50-5.40) Hemoglobin 11.5 g/dL (12.0-15.5) Hematocrit 34.1 % (36.0-47.0) Mean Corpuscular Volume 91 fL (79-100) Mean Corpuscular Hemoglobin 31 pg (25-35) Mean Corpuscular Hemoglobin Concent 34 g/dL (31-37) Red Cell Distribution Width 17.4 % (11.5-14.5) Platelet Count 184 x10^3/uL (140-400) Neutrophils (%) (Auto) 81 % (31-73) Lymphocytes (%) (Auto) 14 % (24-48) Monocytes (%) (Auto) 5 % (0-9) Eosinophils (%) (Auto) 0 % (0-3) Basophils (%) (Auto) 0 % (0-3) Neutrophils # (Auto) 3.9 x10^3uL (1.8-7.7) Lymphocytes # (Auto) 0.7 x10^3/uL (1.0-4.8) Monocytes # (Auto) 0.2 x10^3/uL (0.0-1.1) Eosinophils # (Auto) 0.0 x10^3/uL (0.0-0.7) Basophils # (Auto) 0.0 x10^3/uL (0.0-0.2) Heparin Anti-Xa Act, Unfractionated 0.39 IU/mL (0.30-0.70) Sodium Level 146 mmol/L (136-145) Potassium Level 3.6 mmol/L (3.5-5.1) Chloride Level 109 mmol/L (98-107) Carbon Dioxide Level 24 mmol/L (21-32) Anion Gap 13 (6-14) Blood Urea Nitrogen 97 mg/dL (7-20) Creatinine 4.0 mg/dL (0.6-1.0) Estimated GFR (Cockcroft-Gault) 11.2 BUN/Creatinine Ratio 24 (6-20) Glucose Level 185 mg/dL (70-99) Calcium Level 7.2 mg/dL (8.5-10.1) Total Bilirubin 0.3 mg/dL (0.2-1.0) Aspartate Amino Transf (AST/SGOT) 131 U/L (15-37) Alanine Aminotransferase (ALT/SGPT) 81 U/L (14-59) Alkaline Phosphatase 38 U/L (46-116) Total Protein 5.9 g/dL (6.4-8.2) Albumin 2.1 g/dL (3.4-5.0) Albumin/Globulin Ratio 0.6 (1.0-1.7) O2 Saturation 95 % (92-99) Arterial Blood pH 7.43 (7.35-7.45) Arterial Blood pCO2 at Patient Temp 32 mmHg (35-46) Arterial Blood pO2 at Patient Temp 83 mmHg (65-108) Arterial Blood HCO3 21 mmol/L (21-28) Arterial Blood Base Excess -3 mmol/L (-3-3) FiO2 40 Laboratory Tests Test 02/11/18 13:45 02/11/18 18:50 02/11/18 23:55 02/12/18 05:45 Heparin Anti-Xa Act, Unfractionated 0.40 IU/mL (0.30-0.70) 0.34 IU/mL (0.30-0.70) 0.39 IU/mL (0.30-0.70) Lactic Acid Level 1.1 mmol/L (0.4-2.0) White Blood Count 4.8 x10^3/uL (4.0-11.0) Red Blood Count 3.75 x10^6/uL (3.50-5.40) Hemoglobin 11.5 g/dL (12.0-15.5) Hematocrit 34.1 % (36.0-47.0) Mean Corpuscular Volume 91 fL (79-100) Mean Corpuscular Hemoglobin 31 pg (25-35) Mean Corpuscular Hemoglobin Concent 34 g/dL (31-37) Red Cell Distribution Width 17.4 % (11.5-14.5) Platelet Count 184 x10^3/uL (140-400) Neutrophils (%) (Auto) 81 % (31-73) Lymphocytes (%) (Auto) 14 % (24-48) Monocytes (%) (Auto) 5 % (0-9) Eosinophils (%) (Auto) 0 % (0-3) Basophils (%) (Auto) 0 % (0-3) Neutrophils # (Auto) 3.9 x10^3uL (1.8-7.7) Lymphocytes # (Auto) 0.7 x10^3/uL (1.0-4.8) Monocytes # (Auto) 0.2 x10^3/uL (0.0-1.1) Eosinophils # (Auto) 0.0 x10^3/uL (0.0-0.7) Basophils # (Auto) 0.0 x10^3/uL (0.0-0.2) Sodium Level 146 mmol/L (136-145) Potassium Level 3.6 mmol/L (3.5-5.1) Chloride Level 109 mmol/L (98-107) Carbon Dioxide Level 24 mmol/L (21-32) Anion Gap 13 (6-14) Blood Urea Nitrogen 97 mg/dL (7-20) Creatinine 4.0 mg/dL (0.6-1.0) Estimated GFR (Cockcroft-Gault) 11.2 BUN/Creatinine Ratio 24 (6-20) Glucose Level 185 mg/dL (70-99) Calcium Level 7.2 mg/dL (8.5-10.1) Total Bilirubin 0.3 mg/dL (0.2-1.0) Aspartate Amino Transf (AST/SGOT) 131 U/L (15-37) Alanine Aminotransferase (ALT/SGPT) 81 U/L (14-59) Alkaline Phosphatase 38 U/L (46-116) Total Protein 5.9 g/dL (6.4-8.2) Albumin 2.1 g/dL (3.4-5.0) Albumin/Globulin Ratio 0.6 (1.0-1.7) Test 02/12/18 08:20 O2 Saturation 95 % (92-99) Arterial Blood pH 7.43 (7.35-7.45) Arterial Blood pCO2 at Patient Temp 32 mmHg (35-46) Arterial Blood pO2 at Patient Temp 83 mmHg (65-108) Arterial Blood HCO3 21 mmol/L (21-28) Arterial Blood Base Excess -3 mmol/L (-3-3) FiO2 40 Medications Active Scripts Medications Dose Route/Sig Max Daily Dose Days Date Category Zofran (Ondansetron Hcl) 4 Mg Tablet 1 Tab PO Q6HRS 09/20/17 Reported Milk Of Magnesia (Magnesium Hydroxide) 400 Mg/5 Ml Oral.susp 400 Mg PO 09/20/17 Reported Acetaminophen 500 Mg Tablet 1 Tab PO BID 09/20/17 Reported Clonidine Hcl 0.1 Mg Tablet 1 Tab PO QHS 09/20/17 Reported Tramadol Hcl 50 Mg Tablet 50 Mg PO DAILY PRN 09/20/17 Reported Hydralazine Hcl 20 Mg/1 Ml Vial 20 Mg IJ 09/20/17 Reported Gabapentin (Gabapentin) 300 Mg Capsule 300 Mg PO TID 09/20/17 Reported Acidophilus (Lactobacillus Acidophilus) 1 Each Capsule 1 Each PO 09/20/17 Reported Atorvastatin Calcium 10 Mg Tablet 1 Tab PO DAILY 09/20/17 Reported Vitamin C (Ascorbic Acid) 500 Mg Tablet.er 500 Mg PO 09/20/17 Reported Aspirin 325 Mg Tablet 1 Tab PO DAILY 09/20/17 Reported Colace (Docusate Sodium) 100 Mg Capsule 1 Cap PO BID 09/20/17 Reported Magnesium Oxide 400 Mg Tablet 1 Tab PO DAILY 09/20/17 Reported Multivitamins (Multivitamin) 1 Each Tablet 1 Tab PO DAILY 09/20/17 Reported NICODERM CQ 14mg (Nicotine) 1 Each Patch.td24 1 Patch TP DAILY 09/20/17 Reported Miralax (Polyethylene Glycol 3350) 17 Gm Powd.pack 1 Packet PO DAILY 09/20/17 Reported Albuterol Sulfate Neb Soln (Albuterol Sulfate) 0.63 Mg/3 Ml Vial.neb 1 Vial NEB QID 09/20/17 Reported Prednisone 20 Mg Tablet 1 Tab PO DAILY 09/20/17 Reported Percocet 5-325 Mg Tablet (Oxycodone/Acetaminophen) 1 Each Tablet 1 Tab PO BID 3 07/31/17 Rx Seroquel (Quetiapine Fumarate) 25 Mg Tablet 1 Tab PO QHS 10/21/16 Reported Hydrochlorothiazide Tablet (Hydrochlorothiazide) 12.5 Mg Tablet 1 Tab PO QHS 10/21/16 Reported Lexapro (Escitalopram Oxalate) 20 Mg Tablet 1 Tab PO QHS 10/21/16 Reported Hydrocodone-Apap 10-325 (Hydrocodone Bit/Acetaminophen) 1 Each Tablet 1 Tab PO PRN Q4HRS 10/21/16 Reported Oxycontin (Oxycodone HCl) 10 Mg Tab.er.12h 10 Mg PO BID 10/21/16 Reported Comments cxr reviewed ett too high Persistent patchy perihilar interstitial changes are identified with more focal nodular airspace density in the left upper lobe. There is trace right pleural effusion versus pleural thickening. No pneumothorax. Impression . IMPRESSION: 1. Acute hypoxemic respiratory failure secondary to acute diastolic congestive heart failure, non-ST elevation myocardial infarction/SEPSIS 2. Abnormal chest x-ray/CHF PNEUMONIA 3. Acute diastolic congestive heart failure. 4. Chronic obstructive pulmonary disease with mild acute exacerbation. 5. Acute bronchitis/ASPIRATION PNEUMONIA 6. Smoker. 7. Leukocytosis. 8. History of cerebrovascular accident. 9. hypotension 10. NSTEMI PER CARD Plan . WILL KEEP OFF SEDATION AND HOPEFULLY EXTUBATE IN AM ANITBXN PER ID FOLLOW CARD INPUT ABG AND CXR NOTED HEPARIN CCT 30 MIN D/W JUDE DALE MD Feb 12, 2018 09:38
[2018-02-12] MEDS: methylPREDNISolone SOD SUCC PF 40 MG/ML VIAL. IV SCH ×2 (09:49→21:56)
[2018-02-12] MEDS: MAGNESIUM OXIDE 400 MG TABLET PO SCH (09:50)
[2018-02-12] MEDS: NICOTINE 14MG PATCH. TD SCH (09:50)
[2018-02-12] MEDS: MAGNESIUM HYDROXIDE 2,400 MG/30 ML ORAL.SUSP. PO SCH (09:50)
[2018-02-12] MEDS: CEFEPIME HCL IV Push 1 GM VIAL. IVP SCH ×2 (09:52→21:57)
[2018-02-12 09:58] LABS: BASE EXCESS ABG -3 mmol/L (-3-3); HCO3 ABG 20 mmol/L (21-28); PCO2 ABG 31 mmHg (35-46); PO2 ABG 68 mmHg (65-108); SAT O2 ABG 93 % (92-99)
[2018-02-12 09:59] LABS: FIO2 ABG 40
[2018-02-12] MEDS: MICAFUNGIN 100 MG in IV DEXTROSE 5% 100ML 100 ML IV SCH (11:00)
--- NOTE | 2018-02-12 11:03 | PDOC ---
SUBJECTIVE ROS Intubated , breathing on her own, On Low dose Levophed- down to 2 mcg, when agitated BP high Decreased UOP ,hull not clogged as per RN OBJECTIVE Vital Signs Vital Signs Date Time Temp Pulse Resp B/P (MAP) Pulse Ox O2 Delivery O2 Flow Rate FiO2 02/12/18 10:02 94 Ventilator 02/12/18 07:00 99 22 86/62 (70) 02/12/18 04:00 98.9 98.9 I & 0 Intake and Output 02/12/18 07:00 Intake Total 1784 ml Output Total 420 ml Balance 1364 ml IV Total 301 ml Tube Feeding 1283 ml Other 200 ml Output Urine Total 420 ml Gastric Drainage Total 0 ml PHYSICAL EXAM Physical Exam GENERAL: Intubated, off sedation HEENT: ETT, OGT LUNGS: Clear to auscultation. HEART: S1, S2. ABDOMEN: soft. GENITOURINARY: Indwelling [place] EXTREMITIES: Trace edema Bilat LE SKIN: No Rash NEUROLOGIC: intermittent agitated , Intubated DIAGNOSIS/ASSESSMENT Assessment & Plan Acute renal failure --Non Oliguric, sepsis / cardiorenal- likely acute tubular necrosis Now Decreased UOP ,Hypotensive on Pressor Clinically appears dry, Cxr- no congestion reported, worsening renal function IV NS bolus , monitor UOP , renal US Lytes and acid base stable, Currently No emergent indication for NUTRITION DIRECTOR CKD stage 3- likely based on previous labs in the system Hypokalemia- replaced Hypernatremia- Mild Increase free water flushes with Tube feed Non-ST elevation myocardial infarction. Troponin up to 44.56 now. echo pending Acute diastolic heart failure. Paroxysmal atrial fibrillation. Discussed with RN at bedside COMMENT/RELEVANT DATA Meds Current Medications Medications (Trade) Dose Ordered Sig/Sravan Start Time Stop Time Status Last Admin Dose Admin Acetaminophen (Tylenol Supp) 325 mg PRN Q6HRS PRN 02/09/18 06:45 02/09/18 09:30 325 MG Acetaminophen (Tylenol) 500 mg BID 02/09/18 10:00 02/09/18 10:16 DC Acetaminophen/ Hydrocodone Bitart (Lortab 10/325) 1 tab PRN Q4HRS PRN 02/09/18 09:00 Albuterol Sulfate (Ventolin Neb Soln) 2.5 mg RTQID 02/09/18 12:00 02/10/18 16:26 2.5 MG Albuterol/ Ipratropium (Duoneb) 3 ml 1X ONCE 02/08/18 16:00 02/08/18 16:01 DC 02/08/18 17:14 3 ML Aspirin (Radha Aspirin) 325 mg DAILY 02/09/18 09:00 02/09/18 10:16 DC Aspirin (Children'S Aspirin) 324 mg 1X ONCE 02/08/18 16:30 02/08/18 16:31 DC 02/08/18 16:36 324 MG Atorvastatin Calcium (Lipitor) 10 mg HS 02/09/18 21:00 02/09/18 21:00 DC Budesonide (Pulmicort) 0.5 mg RTBID 02/09/18 08:00 02/12/18 08:16 0.5 MG Cefepime HCl (Maxipime) 1 gm Q12HR 02/12/18 09:00 02/12/18 09:52 1 GM Citalopram Hydrobromide (CeleXA) 40 mg QHS 02/09/18 21:00 02/09/18 21:00 DC Clonidine HCl (Catapres) 0.1 mg QHS 02/08/18 22:00 02/09/18 10:16 DC 02/08/18 22:05 0.1 MG Docusate Sodium (Colace) 100 mg BID 02/09/18 09:00 02/09/18 10:16 DC Ephedrine Sulfate (ePHEDrine PF IN SALINE SYRINGE) 50 mg STK-MED ONCE 02/09/18 07:00 02/11/18 07:43 DC Famotidine (Pepcid Vial) 20 mg QHS 02/09/18 21:00 02/11/18 20:59 20 MG Fentanyl Citrate 30 ml @ 0 mls/hr CONT PRN 02/09/18 20:30 02/12/18 03:39 2.5 MLS/HR Furosemide (Lasix) 60 mg 1X ONCE 02/09/18 20:00 02/09/18 20:01 DC 02/09/18 20:16 60 MG Gabapentin (Neurontin) 300 mg TID 02/08/18 22:20 02/09/18 10:16 DC 02/08/18 22:08 300 MG Heparin Sodium (Porcine) (Heparin Sodium) 1,800 unit PRN Q6HRS PRN 18 17:30 02/08/18 20:10 1,800 UNIT Heparin Sodium/ Dextrose 500 ml @ 0 mls/hr CONT PRN 02/08/18 17:30 02/10/18 00:59 14.3 MLS/HR Hydrochlorothiazide (Microzide) 12.5 mg QHS 02/09/18 21:00 02/09/18 21:00 DC Info (Anti-Coagulation Monitoring By Pharmacy) 1 each PRN DAILY PRN 02/08/18 17:30 02/11/18 12:25 1 EACH Ipratropium Lanse (Atrovent) 0.5 mg RTQID 02/09/18 08:00 02/12/18 08:18 0.5 MG Labetalol HCl (Normodyne Iv Push) 10 mg PRN Q2HR PRN 02/09/18 09:00 02/09/18 09:06 DC Linezolid/Dextrose 300 ml @ 300 mls/hr Q12HR 02/12/18 09:00 02/12/18 09:51 300 MLS/HR Lorazepam (Ativan) 1 mg PRN Q4HRS PRN 02/08/18 21:30 02/09/18 01:49 1 MG Magnesium Hydroxide (Milk Of Magnesia) 400 mg DAILY 02/09/18 09:00 02/12/18 09:50 400 MG Magnesium Oxide (Magnesium Oxide) 400 mg DAILY 02/09/18 10:00 02/12/18 09:50 400 MG Magnesium Sulfate/ Dextrose 100 ml @ 25 mls/hr 1X ONCE 02/08/18 22:00 02/09/18 01:59 DC 02/08/18 22:03 25 MLS/HR Methylprednisolone Sodium Succinate (SOLU-Medrol 40MG VIAL) 40 mg Q12HR 02/10/18 09:00 02/12/18 09:49 40 MG Micafungin Sodium 100 mg/Dextrose 100 ml @ 100 mls/hr Q24H 02/12/18 10:00 Midazolam HCl 100 ml @ 5 mls/hr CONT PRN 02/09/18 22:00 02/12/18 03:38 5 MLS/HR Morphine Sulfate (Morphine Sulfate) 4 mg PRN Q4HRS PRN 02/08/18 21:30 02/09/18 19:45 4 MG Multivitamins (Thera M Plus) 1 tab DAILY 02/09/18 10:00 02/09/18 10:16 DC Nicotine (Nicoderm Cq 14mg) 1 patch DAILY 02/09/18 10:00 02/12/18 09:50 1 PATCH Non-Formulary Medication (Acetaminophen ) 1 tab BID 02/09/18 09:00 02/09/18 09:12 DC Non-Formulary Medication (Albuterol Sulfate (Albuterol Sulfate Neb Soln)) 1 vial QID 02/09/18 09:00 02/09/18 09:22 DC Non-Formulary Medication (Magnesium Oxide ) 1 tab DAILY 02/09/18 09:00 02/09/18 09:14 DC Non-Formulary Medication (Multivitamin (Multivitamins)) 1 tab DAILY 02/09/18 09:00 02/09/18 09:14 DC Non-Formulary Medication (Polyethylene Glycol 3350 (Miralax)) 1 packet DAILY 02/09/18 09:00 02/09/18 09:17 DC Norepinephrine Bitartrate 250 ml @ 1.875 mls/ hr CONT PRN 02/10/18 02:45 02/11/18 05:45 11.25 MLS/HR Ondansetron HCl (Zofran Odt) 4 mg Q6HRS 02/09/18 12:00 02/12/18 05:47 4 MG Ondansetron HCl (Zofran) 4 mg PRN Q6HRS PRN 02/09/18 09:00 Oxycodone HCl (OxyCONTIN) 10 mg BID 02/09/18 09:00 02/09/18 10:16 DC Oxycodone/ Acetaminophen (Percocet 5/325) 1 tab BID 02/09/18 09:00 02/09/18 10:16 DC Phenylephrine HCl (PHENYLEPHRINE in 0.9% NACL PF) 1 mg STK-MED ONCE 02/09/18 07:00 02/11/18 07:43 DC Piperacillin Sod/ Tazobactam Sod (Zosyn Per Pharmacy) 1 each PRN DAILY PRN 18 16:15 02/12/18 07:24 DC Piperacillin Sod/ Tazobactam Sod 2.25 gm/Sodium Chloride 50 ml @ 100 mls/hr Q6HRS 02/11/18 12:00 02/12/18 07:24 DC 02/12/18 05:47 100 MLS/HR Piperacillin Sod/ Tazobactam Sod 3.375 gm/Sodium Chloride 50 ml @ 100 mls/hr Q6HRS 02/09/18 00:00 02/11/18 07:14 DC 02/11/18 05:37 100 MLS/HR Polyethylene Glycol (miraLAX PACKET) 17 gm DAILY 02/09/18 10:00 02/09/18 10:16 DC Propofol (Diprivan) 200 mg STK-MED ONCE 02/09/18 07:00 02/11/18 07:43 DC Quetiapine Fumarate (SEROquel) 25 mg QHS 02/09/18 21:00 02/09/18 21:00 DC Rocuronium Lanse (Zemuron) 50 mg STK-MED ONCE 02/09/18 21:00 02/11/18 08:22 DC Succinylcholine Chloride (Anectine) 200 mg STK-MED ONCE 02/09/18 07:00 02/11/18 07:43 DC Tramadol HCl (Ultram) 50 mg PRN DAILY PRN 02/09/18 09:00 Vancomycin HCl (Vanco Per Pharmacy) 1 each PRN DAILY PRN 02/08/18 16:15 02/10/18 09:07 DC 02/09/18 08:59 1 EACH Vancomycin HCl (Vancomycin Trough Level) 1 each 1X ONCE 02/10/18 16:00 02/10/18 16:00 DC Vancomycin HCl 1.75 gm/Sodium Chloride 500 ml @ 250 mls/hr 1X ONCE 02/08/18 17:00 02/08/18 18:59 DC 02/08/18 16:36 250 MLS/HR Vancomycin HCl 1 gm/Sodium Chloride 250 ml @ 250 mls/hr Q24H 02/09/18 16:30 02/10/18 09:07 DC 02/09/18 16:30 250 MLS/HR Lab Laboratory Tests Test 02/11/18 13:45 02/11/18 18:50 02/11/18 23:55 02/12/18 05:45 Heparin Anti-Xa Act, Unfractionated 0.40 IU/mL (0.30-0.70) 0.34 IU/mL (0.30-0.70) 0.39 IU/mL (0.30-0.70) Lactic Acid Level 1.1 mmol/L (0.4-2.0) White Blood Count 4.8 x10^3/uL (4.0-11.0) Red Blood Count 3.75 x10^6/uL (3.50-5.40) Hemoglobin 11.5 g/dL (12.0-15.5) Hematocrit 34.1 % (36.0-47.0) Mean Corpuscular Volume 91 fL (79-100) Mean Corpuscular Hemoglobin 31 pg (25-35) Mean Corpuscular Hemoglobin Concent 34 g/dL (31-37) Red Cell Distribution Width 17.4 % (11.5-14.5) Platelet Count 184 x10^3/uL (140-400) Neutrophils (%) (Auto) 81 % (31-73) Lymphocytes (%) (Auto) 14 % (24-48) Monocytes (%) (Auto) 5 % (0-9) Eosinophils (%) (Auto) 0 % (0-3) Basophils (%) (Auto) 0 % (0-3) Neutrophils # (Auto) 3.9 x10^3uL (1.8-7.7) Lymphocytes # (Auto) 0.7 x10^3/uL (1.0-4.8) Monocytes # (Auto) 0.2 x10^3/uL (0.0-1.1) Eosinophils # (Auto) 0.0 x10^3/uL (0.0-0.7) Basophils # (Auto) 0.0 x10^3/uL (0.0-0.2) Sodium Level 146 mmol/L (136-145) Potassium Level 3.6 mmol/L (3.5-5.1) Chloride Level 109 mmol/L (98-107) Carbon Dioxide Level 24 mmol/L (21-32) Anion Gap 13 (6-14) Blood Urea Nitrogen 97 mg/dL (7-20) Creatinine 4.0 mg/dL (0.6-1.0) Estimated GFR (Cockcroft-Gault) 11.2 BUN/Creatinine Ratio 24 (6-20) Glucose Level 185 mg/dL (70-99) Calcium Level 7.2 mg/dL (8.5-10.1) Total Bilirubin 0.3 mg/dL (0.2-1.0) Aspartate Amino Transf (AST/SGOT) 131 U/L (15-37) Alanine Aminotransferase (ALT/SGPT) 81 U/L (14-59) Alkaline Phosphatase 38 U/L (46-116) Total Protein 5.9 g/dL (6.4-8.2) Albumin 2.1 g/dL (3.4-5.0) Albumin/Globulin Ratio 0.6 (1.0-1.7) Test 02/12/18 08:20 02/12/18 09:45 O2 Saturation 95 % (92-99) 93 % (92-99) Arterial Blood pH 7.43 (7.35-7.45) 7.43 (7.35-7.45) Arterial Blood pCO2 at Patient Temp 32 mmHg (35-46) 31 mmHg (35-46) Arterial Blood pO2 at Patient Temp 83 mmHg (65-108) 68 mmHg (65-108) Arterial Blood HCO3 21 mmol/L (21-28) 20 mmol/L (21-28) Arterial Blood Base Excess -3 mmol/L (-3-3) -3 mmol/L (-3-3) FiO2 40 40 Results All relevant outside records, renal labs, imaging studies, telemetry/EKG's were reviewed CxR-- There is persistent similar hazy left base airspace opacity, also interstitial opacity questionably slightly decreased. There is probable small pleural effusion as seen previously. There are support catheters and tubes as stated. VINH BLACKBURN MD Feb 12, 2018 11:03
--- NOTE | 2018-02-12 11:05 | PDOC ---
PROGRESS NOTES Chief Complaint Chief Complaint Acute hypoxic respiratory failure NOW IPPV (02/09/18), Spontaneous respiration on 40% O2 Sedated with fentanyl Levophed drip COPD, Smoker - 1 ppday? Severe sepsis - with respiratory failure likely 2/2 pneumonia/bronchitis, fever 102.6F, leukocytosis, tachycardia, Acute diastolic heart failure - BNP of greater than 35,000. diuresis for pulmonary congestion PAD - with carotid, AAA, renovascular disease - cont asa plavix NSTEMI - elevated troponin at 17. Paroxysmal atrial fibrillation. Now in sinus rhythm. on coumadin, INR subtherapeutic, History of a previous CVA - Acute metabolic encephalopathy secondary to multifactorial see above ANGELICA, VMN - new (02/10/18) History of Present Illness History of Present Illness pt. was seen and examined Discussed patient with nurse at the bedside, Sedated with fentanyl Spontaneous respiration on 40% O2 Vitals Vitals Vital Signs Date Time Temp Pulse Resp B/P (MAP) Pulse Ox O2 Delivery O2 Flow Rate FiO2 02/12/18 10:02 94 Ventilator 02/12/18 07:00 99 22 86/62 (70) 02/12/18 04:00 98.9 98.9 Physical Exam Physical Exam GENERAL: Intubated and sedated HEENT: Pupils equally round & reactive. ETT, OGT NECK: supple LUNGS: Clear to auscultation. HEART: S1, S2. ABDOMEN: Obese, soft. No grimace or guarding to palpation. Bowel sounds present. GENITOURINARY: Indwelling Forman in place. EXTREMITIES: Trace edema in lower extremities bilaterally. No cyanosis. Mitts SKIN: Warm without rash. NEUROLOGIC: Unresponsive/sedated RIJ - clean ok General: Other (intubated on a ventilator.) Heart: Regular rate Lungs: Crackles Abdomen: Normal bowel sounds Extremities: No clubbing, No cyanosis, No edema, Normal pulses, No tenderness/ swelling Skin: No rashes, No breakdown, No significant lesion Labs LABS Laboratory Tests Test 02/11/18 13:45 02/11/18 18:50 02/11/18 23:55 02/12/18 05:45 Heparin Anti-Xa Act, Unfractionated 0.40 IU/mL (0.30-0.70) 0.34 IU/mL (0.30-0.70) 0.39 IU/mL (0.30-0.70) Lactic Acid Level 1.1 mmol/L (0.4-2.0) White Blood Count 4.8 x10^3/uL (4.0-11.0) Red Blood Count 3.75 x10^6/uL (3.50-5.40) Hemoglobin 11.5 g/dL (12.0-15.5) Hematocrit 34.1 % (36.0-47.0) Mean Corpuscular Volume 91 fL (79-100) Mean Corpuscular Hemoglobin 31 pg (25-35) Mean Corpuscular Hemoglobin Concent 34 g/dL (31-37) Red Cell Distribution Width 17.4 % (11.5-14.5) Platelet Count 184 x10^3/uL (140-400) Neutrophils (%) (Auto) 81 % (31-73) Lymphocytes (%) (Auto) 14 % (24-48) Monocytes (%) (Auto) 5 % (0-9) Eosinophils (%) (Auto) 0 % (0-3) Basophils (%) (Auto) 0 % (0-3) Neutrophils # (Auto) 3.9 x10^3uL (1.8-7.7) Lymphocytes # (Auto) 0.7 x10^3/uL (1.0-4.8) Monocytes # (Auto) 0.2 x10^3/uL (0.0-1.1) Eosinophils # (Auto) 0.0 x10^3/uL (0.0-0.7) Basophils # (Auto) 0.0 x10^3/uL (0.0-0.2) Sodium Level 146 mmol/L (136-145) Potassium Level 3.6 mmol/L (3.5-5.1) Chloride Level 109 mmol/L (98-107) Carbon Dioxide Level 24 mmol/L (21-32) Anion Gap 13 (6-14) Blood Urea Nitrogen 97 mg/dL (7-20) Creatinine 4.0 mg/dL (0.6-1.0) Estimated GFR (Cockcroft-Gault) 11.2 BUN/Creatinine Ratio 24 (6-20) Glucose Level 185 mg/dL (70-99) Calcium Level 7.2 mg/dL (8.5-10.1) Total Bilirubin 0.3 mg/dL (0.2-1.0) Aspartate Amino Transf (AST/SGOT) 131 U/L (15-37) Alanine Aminotransferase (ALT/SGPT) 81 U/L (14-59) Alkaline Phosphatase 38 U/L (46-116) Total Protein 5.9 g/dL (6.4-8.2) Albumin 2.1 g/dL (3.4-5.0) Albumin/Globulin Ratio 0.6 (1.0-1.7) Test 02/12/18 08:20 02/12/18 09:45 O2 Saturation 95 % (92-99) 93 % (92-99) Arterial Blood pH 7.43 (7.35-7.45) 7.43 (7.35-7.45) Arterial Blood pCO2 at Patient Temp 32 mmHg (35-46) 31 mmHg (35-46) Arterial Blood pO2 at Patient Temp 83 mmHg (65-108) 68 mmHg (65-108) Arterial Blood HCO3 21 mmol/L (21-28) 20 mmol/L (21-28) Arterial Blood Base Excess -3 mmol/L (-3-3) -3 mmol/L (-3-3) FiO2 40 40 Review of Systems Review of Systems unable to obtain Assessment and Plan Assessmemt and Plan Assessment Acute hypoxic respiratory failure NOW IPPV (02/09/18), Spontaneous respiration on 40% O2 Sedated with fentanyl Levophed drip COPD, Smoker - 1 ppday? Severe sepsis - with respiratory failure likely 2/2 pneumonia/bronchitis, fever 102.6F, leukocytosis, tachycardia, Acute diastolic heart failure - BNP of greater than 35,000. diuresis for pulmonary congestion PAD - with carotid, AAA, renovascular disease - cont asa plavix NSTEMI - elevated troponin at 17. Paroxysmal atrial fibrillation. Now in sinus rhythm. on coumadin, INR subtherapeutic, History of a previous CVA - Acute metabolic encephalopathy secondary to multifactorial see above ANGELICA, VMN - new (02/10/18) Plan ICU monitoring Trial of non-ventilator assisted breathing Recheck Labs DVT Prophylaxis with SCVs OG feeds 30cc/hr Comment Review of Relevant I have reviewed the following items pat (where applicable) has been applied. Labs Laboratory Tests Test 02/10/18 14:54 02/10/18 15:07 02/10/18 21:20 02/11/18 05:20 Heparin Anti-Xa Act, Unfractionated 0.63 IU/mL (0.30-0.70) 0.69 IU/mL (0.30-0.70) 0.57 IU/mL (0.30-0.70) Glucose (Fingerstick) 96 mg/dL (70-99) White Blood Count 4.3 x10^3/uL (4.0-11.0) Red Blood Count 4.02 x10^6/uL (3.50-5.40) Hemoglobin 12.4 g/dL (12.0-15.5) Hematocrit 36.4 % (36.0-47.0) Mean Corpuscular Volume 90 fL (79-100) Mean Corpuscular Hemoglobin 31 pg (25-35) Mean Corpuscular Hemoglobin Concent 34 g/dL (31-37) Red Cell Distribution Width 16.8 % (11.5-14.5) Platelet Count 202 x10^3/uL (140-400) Sodium Level 147 mmol/L (136-145) Potassium Level 3.3 mmol/L (3.5-5.1) Chloride Level 109 mmol/L (98-107) Carbon Dioxide Level 25 mmol/L (21-32) Anion Gap 13 (6-14) Blood Urea Nitrogen 68 mg/dL (7-20) Creatinine 2.4 mg/dL (0.6-1.0) Estimated GFR (Cockcroft-Gault) 20.2 Glucose Level 161 mg/dL (70-99) Calcium Level 7.9 mg/dL (8.5-10.1) Test 02/11/18 09:00 02/11/18 13:45 02/11/18 18:50 02/11/18 23:55 O2 Saturation 95 % (92-99) Arterial Blood pH 7.44 (7.35-7.45) Arterial Blood pCO2 at Patient Temp 34 mmHg (35-46) Arterial Blood pO2 at Patient Temp 82 mmHg (65-108) Arterial Blood HCO3 23 mmol/L (21-28) Arterial Blood Base Excess -1 mmol/L (-3-3) FiO2 40 Heparin Anti-Xa Act, Unfractionated 0.40 IU/mL (0.30-0.70) 0.34 IU/mL (0.30-0.70) Lactic Acid Level 1.1 mmol/L (0.4-2.0) Test 02/12/18 05:45 02/12/18 08:20 02/12/18 09:45 White Blood Count 4.8 x10^3/uL (4.0-11.0) Red Blood Count 3.75 x10^6/uL (3.50-5.40) Hemoglobin 11.5 g/dL (12.0-15.5) Hematocrit 34.1 % (36.0-47.0) Mean Corpuscular Volume 91 fL (79-100) Mean Corpuscular Hemoglobin 31 pg (25-35) Mean Corpuscular Hemoglobin Concent 34 g/dL (31-37) Red Cell Distribution Width 17.4 % (11.5-14.5) Platelet Count 184 x10^3/uL (140-400) Neutrophils (%) (Auto) 81 % (31-73) Lymphocytes (%) (Auto) 14 % (24-48) Monocytes (%) (Auto) 5 % (0-9) Eosinophils (%) (Auto) 0 % (0-3) Basophils (%) (Auto) 0 % (0-3) Neutrophils # (Auto) 3.9 x10^3uL (1.8-7.7) Lymphocytes # (Auto) 0.7 x10^3/uL (1.0-4.8) Monocytes # (Auto) 0.2 x10^3/uL (0.0-1.1) Eosinophils # (Auto) 0.0 x10^3/uL (0.0-0.7) Basophils # (Auto) 0.0 x10^3/uL (0.0-0.2) Heparin Anti-Xa Act, Unfractionated 0.39 IU/mL (0.30-0.70) Sodium Level 146 mmol/L (136-145) Potassium Level 3.6 mmol/L (3.5-5.1) Chloride Level 109 mmol/L (98-107) Carbon Dioxide Level 24 mmol/L (21-32) Anion Gap 13 (6-14) Blood Urea Nitrogen 97 mg/dL (7-20) Creatinine 4.0 mg/dL (0.6-1.0) Estimated GFR (Cockcroft-Gault) 11.2 BUN/Creatinine Ratio 24 (6-20) Glucose Level 185 mg/dL (70-99) Calcium Level 7.2 mg/dL (8.5-10.1) Total Bilirubin 0.3 mg/dL (0.2-1.0) Aspartate Amino Transf (AST/SGOT) 131 U/L (15-37) Alanine Aminotransferase (ALT/SGPT) 81 U/L (14-59) Alkaline Phosphatase 38 U/L (46-116) Total Protein 5.9 g/dL (6.4-8.2) Albumin 2.1 g/dL (3.4-5.0) Albumin/Globulin Ratio 0.6 (1.0-1.7) O2 Saturation 95 % (92-99) 93 % (92-99) Arterial Blood pH 7.43 (7.35-7.45) 7.43 (7.35-7.45) Arterial Blood pCO2 at Patient Temp 32 mmHg (35-46) 31 mmHg (35-46) Arterial Blood pO2 at Patient Temp 83 mmHg (65-108) 68 mmHg (65-108) Arterial Blood HCO3 21 mmol/L (21-28) 20 mmol/L (21-28) Arterial Blood Base Excess -3 mmol/L (-3-3) -3 mmol/L (-3-3) FiO2 40 40 Laboratory Tests Test 02/11/18 13:45 02/11/18 18:50 02/11/18 23:55 02/12/18 05:45 Heparin Anti-Xa Act, Unfractionated 0.40 IU/mL (0.30-0.70) 0.34 IU/mL (0.30-0.70) 0.39 IU/mL (0.30-0.70) Lactic Acid Level 1.1 mmol/L (0.4-2.0) White Blood Count 4.8 x10^3/uL (4.0-11.0) Red Blood Count 3.75 x10^6/uL (3.50-5.40) Hemoglobin 11.5 g/dL (12.0-15.5) Hematocrit 34.1 % (36.0-47.0) Mean Corpuscular Volume 91 fL (79-100) Mean Corpuscular Hemoglobin 31 pg (25-35) Mean Corpuscular Hemoglobin Concent 34 g/dL (31-37) Red Cell Distribution Width 17.4 % (11.5-14.5) Platelet Count 184 x10^3/uL (140-400) Neutrophils (%) (Auto) 81 % (31-73) Lymphocytes (%) (Auto) 14 % (24-48) Monocytes (%) (Auto) 5 % (0-9) Eosinophils (%) (Auto) 0 % (0-3) Basophils (%) (Auto) 0 % (0-3) Neutrophils # (Auto) 3.9 x10^3uL (1.8-7.7) Lymphocytes # (Auto) 0.7 x10^3/uL (1.0-4.8) Monocytes # (Auto) 0.2 x10^3/uL (0.0-1.1) Eosinophils # (Auto) 0.0 x10^3/uL (0.0-0.7) Basophils # (Auto) 0.0 x10^3/uL (0.0-0.2) Sodium Level 146 mmol/L (136-145) Potassium Level 3.6 mmol/L (3.5-5.1) Chloride Level 109 mmol/L (98-107) Carbon Dioxide Level 24 mmol/L (21-32) Anion Gap 13 (6-14) Blood Urea Nitrogen 97 mg/dL (7-20) Creatinine 4.0 mg/dL (0.6-1.0) Estimated GFR (Cockcroft-Gault) 11.2 BUN/Creatinine Ratio 24 (6-20) Glucose Level 185 mg/dL (70-99) Calcium Level 7.2 mg/dL (8.5-10.1) Total Bilirubin 0.3 mg/dL (0.2-1.0) Aspartate Amino Transf (AST/SGOT) 131 U/L (15-37) Alanine Aminotransferase (ALT/SGPT) 81 U/L (14-59) Alkaline Phosphatase 38 U/L (46-116) Total Protein 5.9 g/dL (6.4-8.2) Albumin 2.1 g/dL (3.4-5.0) Albumin/Globulin Ratio 0.6 (1.0-1.7) Test 02/12/18 08:20 02/12/18 09:45 O2 Saturation 95 % (92-99) 93 % (92-99) Arterial Blood pH 7.43 (7.35-7.45) 7.43 (7.35-7.45) Arterial Blood pCO2 at Patient Temp 32 mmHg (35-46) 31 mmHg (35-46) Arterial Blood pO2 at Patient Temp 83 mmHg (65-108) 68 mmHg (65-108) Arterial Blood HCO3 21 mmol/L (21-28) 20 mmol/L (21-28) Arterial Blood Base Excess -3 mmol/L (-3-3) -3 mmol/L (-3-3) FiO2 40 40 Microbiology 02/08/18 Blood Culture - Preliminary, Resulted NO GROWTH AFTER 2 DAYS Medications Current Medications Albuterol/ Ipratropium (Duoneb) 3 ml 1X ONCE NEB Last administered on at 17:14; Start 02/08/18 at 16:00; Stop 02/08/18 at 16:01; Status DC Vancomycin HCl (Vanco Per Pharmacy) 1 each PRN DAILY PRN MC SEE COMMENTS Last administered on 02/09/18at 08:59; Start 02/08/18 at 16:15; Stop 02/10/18 at 09 :07; Status DC Piperacillin Sod/ Tazobactam Sod (Zosyn Per Pharmacy) 1 each PRN DAILY PRN MC SEE COMMENTS; Start 02/08/18 at 16:15; Stop 02/12/18 at 07:24; Status DC Vancomycin HCl 1.75 gm/Sodium Chloride 500 ml @ 250 mls/hr 1X ONCE IV Last administered on 02/08/18at 16:36; Start 02/08/18 at 17:00; Stop 02/08/18 at 18 :59; Status DC Piperacillin Sod/ Tazobactam Sod 3.375 gm/Sodium Chloride 50 ml @ 100 mls/hr 1X ONCE IV Last administered on 02/08/18at 16:36; Start 02/08/18 at 16:30; Stop 02/08/18 at 16:59; Status DC Furosemide (Lasix) 20 mg 1X ONCE IVP Last administered on 02/08/18at 16:36; Start 02/08/18 at 16:30; Stop 02/08/18 at 16:31; Status DC Aspirin (Children'S Aspirin) 324 mg 1X ONCE PO Last administered on at 16:36; Start 02/08/18 at 16:30; Stop 02/08/18 at 16:31; Status DC Furosemide (Lasix) 20 mg 1X ONCE IVP Last administered on 02/08/18at 18:07; Start 02/08/18 at 17:00; Stop 02/08/18 at 17:01; Status DC Ondansetron HCl (Zofran) 4 mg 1X ONCE IV Last administered on 02/08/18at 17:00 ; Start 02/08/18 at 17:00; Stop 02/08/18 at 17:01; Status DC Ondansetron HCl (Zofran) 4 mg STK-MED ONCE .ROUTE ; Start 02/08/18 at 16:51; Stop 02/08/18 at 16:52; Status DC Heparin Sodium/ Dextrose 500 ml @ 0 mls/hr CONT PRN IV SEE I/O RECORD; Start 02/08/18 at 17:30; Status UNV Info (Anti-Coagulation Monitoring By Pharmacy) 1 each PRN DAILY PRN MC SEE COMMENTS Last administered on 02/11/18at 12:25; Start 02/08/18 at 17:30 Heparin Sodium/ Dextrose 500 ml @ 0 mls/hr CONT PRN IV SEE I/O RECORD Last administered on 02/10/18at 00:59; Start 02/08/18 at 17:30 Heparin Sodium (Porcine) (Heparin Sodium) 1,800 unit PRN Q6HRS PRN IV FOR UFH LEVEL LESS THAN 0.2 Last administered on 02/08/18at 20:10; Start 02/08/18 at 17 :30 Ondansetron HCl (Zofran) 4 mg 1X PRN PRN IV NAUSEA/VOMITING; Start 02/08/18 at 18:00; Stop 02/09/18 at 09:06; Status DC Piperacillin Sod/ Tazobactam Sod 3.375 gm/Sodium Chloride 50 ml @ 100 mls/hr Q6HRS IV Last administered on 02/11/18at 05:37; Start 02/09/18 at 00:00; Stop 02/11/18 at 07:14; Status DC Vancomycin HCl 1 gm/Sodium Chloride 250 ml @ 250 mls/hr Q24H IV Last administered on 02/09/18at 16:30; Start 02/09/18 at 16:30; Stop 02/10/18 at 09 :07; Status DC Vancomycin HCl (Vancomycin Trough Level) 1 each 1X ONCE MC ; Start 02/10/18 at 16:00; Stop 02/10/18 at 16:00; Status DC Magnesium Sulfate/ Dextrose 100 ml @ 25 mls/hr 1X ONCE IV Last administered on 02/08/18at 22:03; Start 02/08/18 at 22:00; Stop 02/09/18 at 01:59; Status DC Aspirin (Radha Aspirin) 325 mg DAILY PO ; Start 02/09/18 at 09:00; Stop at 10:16; Status DC Atorvastatin Calcium (Lipitor) 10 mg HS PO ; Start 02/09/18 at 21:00; Stop at 21:00; Status DC Clonidine HCl (Catapres) 0.1 mg QHS PO Last administered on 02/08/18at 22:05; Start 02/08/18 at 22:00; Stop 02/09/18 at 10:16; Status DC Docusate Sodium (Colace) 100 mg BID PO ; Start 02/09/18 at 09:00; Stop at 10:16; Status DC Gabapentin (Neurontin) 300 mg TID PO Last administered on 02/08/18at 22:08; Start 02/08/18 at 22:20; Stop 02/09/18 at 10:16; Status DC Labetalol HCl (Normodyne Iv Push) 10 mg PRN Q2HR PRN IVP HYPERTENSION, SEE COMMENTS Last administered on 02/09/18at 18:06; Start 02/08/18 at 21:30 Lorazepam (Ativan) 1 mg PRN Q4HRS PRN IV ANXIETY / AGITATION Last administered on 02/09/18at 01:49; Start 02/08/18 at 21:30 Morphine Sulfate (Morphine Sulfate) 4 mg PRN Q4HRS PRN IV PAIN Last administered on 02/09/18at 19:45; Start 02/08/18 at 21:30 Acetaminophen (Tylenol Supp) 325 mg PRN Q6HRS PRN [place] MILD PAIN / TEMP Last administered on 02/09/18at 09:30; Start 02/09/18 at 06:45 Ipratropium [place] (Atrovent) 0.5 mg RTQID NEB Last administered on at 08:18; Start 02/09/18 at 08:00 Budesonide (Pulmicort) 0.5 mg RTBID NEB Last administered on 02/12/18at 08:16; Start 02/09/18 at 08:00 Famotidine (Pepcid Vial) 20 mg QHS IVP Last administered on 02/11/18at 20:59; Start 02/09/18 at 21:00 Acetaminophen (Tylenol) 500 mg PRN Q6HRS PRN PO FEVER/KUO Last administered on 02/11/18at 23:45; Start 02/09/18 at 09:00 Ondansetron HCl (Zofran) 4 mg PRN Q6HRS PRN IV NAUSEA/VOMITING; Start at 09:00 Ondansetron HCl (Zofran Odt) 4 mg PRN Q6HRS PRN PO NAUSEA/VOMITING; Start at 09:00 Acetaminophen/ Hydrocodone Bitart (Lortab 10/325) 1 tab PRN Q4HRS PRN PO MODERATE PAIN; Start 02/09/18 at 09:00 Magnesium Hydroxide (Milk Of Magnesia) 400 mg DAILY PO Last administered on at 09:50; Start 02/09/18 at 09:00 Oxycodone HCl (OxyCONTIN) 10 mg BID PO ; Start 02/09/18 at 09:00; Stop at 10:16; Status DC Oxycodone/ Acetaminophen (Percocet 5/325) 1 tab BID PO ; Start 02/09/18 at 09: 00; Stop 02/09/18 at 10:16; Status DC Tramadol HCl (Ultram) 50 mg PRN DAILY PRN PO MILD PAIN; Start 02/09/18 at 09: 00 Non-Formulary Medication (Acetaminophen ) 1 tab BID PO ; Start 02/09/18 at 09: 00; Stop 02/09/18 at 09:12; Status DC Non-Formulary Medication (Albuterol Sulfate (Albuterol Sulfate Neb Soln)) 1 vial QID NEB ; Start 02/09/18 at 09:00; Stop 02/09/18 at 09:22; Status DC Citalopram Hydrobromide (CeleXA) 40 mg QHS PO ; Start 02/09/18 at 21:00; Stop 02/09/18 at 21:00; Status DC Hydrochlorothiazide (Microzide) 12.5 mg QHS PO ; Start 02/09/18 at 21:00; Stop 02/09/18 at 21:00; Status DC Non-Formulary Medication (Magnesium Oxide ) 1 tab DAILY PO ; Start 02/09/18 at 09:00; Stop 02/09/18 at 09:14; Status DC Non-Formulary Medication (Multivitamin (Multivitamins)) 1 tab DAILY PO ; Start 02/09/18 at 09:00; Stop 02/09/18 at 09:14; Status DC Nicotine (Nicoderm Cq 14mg) 1 patch DAILY TD Last administered on 02/12/18at 09 :50; Start 02/09/18 at 10:00 Ondansetron HCl (Zofran Odt) 4 mg Q6HRS PO Last administered on 02/12/18at 05: 47; Start 02/09/18 at 12:00 Non-Formulary Medication (Polyethylene Glycol 3350 (Miralax)) 1 packet DAILY PO ; Start 02/09/18 at 09:00; Stop 02/09/18 at 09:17; Status DC Quetiapine Fumarate (SEROquel) 25 mg QHS PO ; Start 02/09/18 at 21:00; Stop at 21:00; Status DC Labetalol HCl (Normodyne Iv Push) 10 mg PRN Q2HR PRN IVP HYPERTENSION, SEE COMMENTS; Start 02/09/18 at 09:00; Stop 02/09/18 at 09:06; Status DC Acetaminophen (Tylenol) 500 mg BID PO ; Start 02/09/18 at 10:00; Stop at 10:16; Status DC Magnesium Oxide (Magnesium Oxide) 400 mg DAILY PO Last administered on at 09:50; Start 02/09/18 at 10:00 Multivitamins (Thera M Plus) 1 tab DAILY PO ; Start 02/09/18 at 10:00; Stop at 10:16; Status DC Polyethylene Glycol (miraLAX PACKET) 17 gm DAILY PO ; Start 02/09/18 at 10:00; Stop 02/09/18 at 10:16; Status DC Albuterol Sulfate (Ventolin Neb Soln) 2.5 mg RTQID NEB Last administered on at 16:26; Start 02/09/18 at 12:00 Furosemide (Lasix) 60 mg 1X ONCE IVP Last administered on 02/09/18at 20:16; Start 02/09/18 at 20:00; Stop 02/09/18 at 20:01; Status DC Rocuronium [place] (Zemuron) 50 mg STK-MED ONCE .ROUTE ; Start 02/09/18 at 20: 23; Stop 02/09/18 at 20:24; Status DC Fentanyl Citrate 30 ml @ 0 mls/hr CONT PRN IV SEE PROTOCOL Last administered on 02/12/18at 03:39; Start 02/09/18 at 20:30 Propofol 100 ml @ 0 mls/hr CONT PRN IV SEE PROTOCOL Last administered on at 22:08; Start 02/09/18 at 20:30 Midazolam HCl 100 ml @ 5 mls/hr CONT PRN IV SEE I/O RECORD Last administered on 02/12/18at 03:38; Start 02/09/18 at 22:00 Norepinephrine Bitartrate 250 ml @ As Directed STK-MED ONCE IV ; Start at 02:33; Stop 02/10/18 at 02:35; Status DC Norepinephrine Bitartrate 250 ml @ 1.875 mls/ hr CONT PRN IV SEE I/O RECORD Last administered on 02/11/18at 05:45; Start 02/10/18 at 02:45 Methylprednisolone Sodium Succinate (SOLU-Medrol 40MG VIAL) 40 mg Q12HR IV Last administered on 02/12/18at 09:49; Start 02/10/18 at 09:00 Piperacillin Sod/ Tazobactam Sod 2.25 gm/Sodium Chloride 50 ml @ 100 mls/hr Q6HRS IV Last administered on 02/12/18at 05:47; Start 02/11/18 at 12:00; Stop 02/12/18 at 07:24; Status DC Propofol (Diprivan) 200 mg STK-MED ONCE IV ; Start 02/09/18 at 07:00; Stop at 07:43; Status DC Succinylcholine Chloride (Anectine) 200 mg STK-MED ONCE .ROUTE ; Start at 07:00; Stop 02/11/18 at 07:43; Status DC Phenylephrine HCl (PHENYLEPHRINE in 0.9% NACL PF) 1 mg STK-MED ONCE IV ; Start 02/09/18 at 07:00; Stop 02/11/18 at 07:43; Status DC Ephedrine Sulfate (ePHEDrine PF IN SALINE SYRINGE) 50 mg STK-MED ONCE IV ; Start 02/09/18 at 07:00; Stop 02/11/18 at 07:43; Status DC Rocuronium [place] (Zemuron) 50 mg STK-MED ONCE .ROUTE ; Start 02/09/18 at 21: 00; Stop 02/11/18 at 08:22; Status DC Linezolid/Dextrose 300 ml @ 300 mls/hr Q12HR IV Last administered on at 09:51; Start 02/12/18 at 09:00 Micafungin Sodium 100 mg/Dextrose 100 ml @ 100 mls/hr Q24H IV ; Start at 10:00 Cefepime HCl (Maxipime) 1 gm Q12HR IVP Last administered on 02/12/18at 09:52; Start 02/12/18 at 09:00 Active Scripts Active Percocet 5-325 Mg Tablet (Oxycodone/Acetaminophen) 1 Each Tablet 1 Tab PO BID 3 Days Reported Zofran (Ondansetron Hcl) 4 Mg Tablet 1 Tab PO Q6HRS Milk Of Magnesia (Magnesium Hydroxide) 400 Mg/5 Ml Oral.susp 400 Mg PO Acetaminophen 500 Mg Tablet 1 Tab PO BID Clonidine Hcl 0.1 Mg Tablet 1 Tab PO QHS Tramadol Hcl 50 Mg Tablet 50 Mg PO DAILY PRN Hydralazine Hcl 20 Mg/1 Ml Vial 20 Mg IJ Gabapentin (Gabapentin) 300 Mg Capsule 300 Mg PO TID Acidophilus (Lactobacillus Acidophilus) 1 Each Capsule 1 Each PO Atorvastatin Calcium 10 Mg Tablet 1 Tab PO DAILY Vitamin C (Ascorbic Acid) 500 Mg Tablet.er 500 Mg PO Aspirin 325 Mg Tablet 1 Tab PO DAILY Colace (Docusate Sodium) 100 Mg Capsule 1 Cap PO BID Magnesium Oxide 400 Mg Tablet 1 Tab PO DAILY Multivitamins (Multivitamin) 1 Each Tablet 1 Tab PO DAILY NICODERM CQ 14mg (Nicotine) 1 Each Patch.td24 1 Patch TP DAILY Miralax (Polyethylene Glycol 3350) 17 Gm Powd.pack 1 Packet PO DAILY Albuterol Sulfate Neb Soln (Albuterol Sulfate) 0.63 Mg/3 Ml Vial.neb 1 Vial NEB QID Prednisone 20 Mg Tablet 1 Tab PO DAILY Seroquel (Quetiapine Fumarate) 25 Mg Tablet 1 Tab PO QHS Hydrochlorothiazide Tablet (Hydrochlorothiazide) 12.5 Mg Tablet 1 Tab PO QHS Lexapro (Escitalopram Oxalate) 20 Mg Tablet 1 Tab PO QHS Hydrocodone-Apap 10-325 (Hydrocodone Bit/Acetaminophen) 1 Each Tablet 1 Tab PO PRN Q4HRS Oxycontin (Oxycodone HCl) 10 Mg Tab.er.12h 10 Mg PO BID Vitals/I & O Vital Sign - Last 24 Hours 02/11/18 02/11/18 02/11/18 02/11/18 11:00 11:40 12:00 12:00 Temp 97.8 97.8 Pulse 110 112 Resp 22 21 B/P (MAP) 92/73 (79) 119/81 (94) Pulse Ox 100 100 98 O2 Delivery Ventilator Ventilator Mechanical Ventilator Ventilator 02/11/18 02/11/18 02/11/18 02/11/18 13:00 15:40 15:58 16:00 Pulse 106 Resp 21 B/P (MAP) 86/67 (73) Pulse Ox 100 98 100 O2 Delivery Ventilator Ventilator Mechanical Ventilator 02/11/18 02/11/18 02/11/18 02/11/18 16:28 17:55 19:00 20:00 Temp 98.4 98.4 Pulse 112 117 Resp 22 22 B/P (MAP) 108/70 (83) 121/75 (90) Pulse Ox 100 98 99 96 O2 Delivery Ventilator Ventilator Ventilator 02/11/18 02/11/18 02/11/18 02/11/18 20:00 20:08 21:00 21:15 Pulse 121 Resp 22 B/P (MAP) 149/88 (108) 114/73 (87) Pulse Ox 97 96 O2 Delivery Mechanical Ventilator Ventilator Ventilator 02/11/18 02/11/18 02/11/18 02/11/18 21:55 22:00 23:00 23:30 Pulse 115 116 Resp 22 22 B/P (MAP) 123/82 (96) 109/71 (84) Pulse Ox 97 96 96 97 O2 Delivery Ventilator Ventilator Ventilator Ventilator 02/11/18 02/12/18 02/12/18 02/12/18 23:59 00:00 01:00 02:00 Temp 101.6 101.6 Pulse 108 107 109 Resp B/P (MAP) 87/62 (70) 93/76 (82) 143/87 (105) Pulse Ox 96 97 97 O2 Delivery Mechanical Ventilator Ventilator Ventilator Ventilator 02/12/18 02/12/18 02/12/18 02/12/18 02:20 03:00 04:00 04:00 Temp 98.9 98.9 Pulse 98 105 Resp B/P (MAP) 104/69 (81) 98/63 (75) Pulse Ox 97 96 96 O2 Delivery Ventilator Ventilator Mechanical Ventilator Ventilator 02/12/18 02/12/18 02/12/18 02/12/18 04:24 05:00 06:00 07:00 Pulse 98 103 99 Resp B/P (MAP) 84/62 (69) 99/61 (74) 86/62 (70) Pulse Ox 96 96 96 96 O2 Delivery Ventilator Ventilator Ventilator Ventilator 02/12/18 02/12/18 08:21 10:02 Pulse Ox 96 94 O2 Delivery Ventilator Ventilator Intake and Output 02/11/18 02/11/18 02/12/18 15:00 23:00 07:00 Intake Total 110 ml 300 ml 1374 ml Output Total 185 ml 80 ml 155 ml Balance -75 ml 220 ml 1219 ml Nutrition Consultation Dietary Evaluation: Recommendations by RD: Increase Calorie Intake Comments: REC TF per following: Jevity 1.5@goal rate 45 ml/hr w/25 ml water flushes q8 hrs or flushes per MD Expected Outcomes/Goals: TF for nutrition needs while pt remains intubated Interpretation of weight loss: >10% in 6 months Malnutrition Findings: Body Fat Depletion (Non Severe: Mild Depletion Weight Status: Appropriate SUSSY RYANL K III DO Feb 12, 2018 11:05
[2018-02-12] MEDS: ALBUTEROL SULFATE 2.5 MG/3 ML NEBU. NEB SCH (12:00)
[2018-02-12] MEDS: LABETALOL 20 MG/4 ML DISP.SYRIN. IVP PRN ×2 (15:12→21:55)
--- NOTE | 2018-02-12 16:21 | PDOC ---
CARDIO Progress Notes Date and Time Date of Service 02/12/2018 Time of Evaluation 1550 Subjective Subjective: Other (intubated) Vitals Vitals Vital Signs Date Time Temp Pulse Resp B/P (MAP) Pulse Ox O2 Delivery O2 Flow Rate FiO2 02/12/18 15:12 116 184/100 02/12/18 15:00 98.9 39 95 Ventilator 98.9 Weight Weight [ ] Input and Output Intake and Output Intake and Output 02/12/18 07:00 Intake Total 1784 ml Output Total 420 ml Balance 1364 ml IV Total 301 ml Tube Feeding 1283 ml Other 200 ml Output Urine Total 420 ml Gastric Drainage Total 0 ml Laboratory Labs Laboratory Tests Test 02/11/18 18:50 02/11/18 23:55 02/12/18 05:45 02/12/18 08:20 Heparin Anti-Xa Act, Unfractionated 0.34 IU/mL (0.30-0.70) 0.39 IU/mL (0.30-0.70) Lactic Acid Level 1.1 mmol/L (0.4-2.0) White Blood Count 4.8 x10^3/uL (4.0-11.0) Red Blood Count 3.75 x10^6/uL (3.50-5.40) Hemoglobin 11.5 g/dL (12.0-15.5) Hematocrit 34.1 % (36.0-47.0) Mean Corpuscular Volume 91 fL (79-100) Mean Corpuscular Hemoglobin 31 pg (25-35) Mean Corpuscular Hemoglobin Concent 34 g/dL (31-37) Red Cell Distribution Width 17.4 % (11.5-14.5) Platelet Count 184 x10^3/uL (140-400) Neutrophils (%) (Auto) 81 % (31-73) Lymphocytes (%) (Auto) 14 % (24-48) Monocytes (%) (Auto) 5 % (0-9) Eosinophils (%) (Auto) 0 % (0-3) Basophils (%) (Auto) 0 % (0-3) Neutrophils # (Auto) 3.9 x10^3uL (1.8-7.7) Lymphocytes # (Auto) 0.7 x10^3/uL (1.0-4.8) Monocytes # (Auto) 0.2 x10^3/uL (0.0-1.1) Eosinophils # (Auto) 0.0 x10^3/uL (0.0-0.7) Basophils # (Auto) 0.0 x10^3/uL (0.0-0.2) Sodium Level 146 mmol/L (136-145) Potassium Level 3.6 mmol/L (3.5-5.1) Chloride Level 109 mmol/L (98-107) Carbon Dioxide Level 24 mmol/L (21-32) Anion Gap 13 (6-14) Blood Urea Nitrogen 97 mg/dL (7-20) Creatinine 4.0 mg/dL (0.6-1.0) Estimated GFR (Cockcroft-Gault) 11.2 BUN/Creatinine Ratio 24 (6-20) Glucose Level 185 mg/dL (70-99) Calcium Level 7.2 mg/dL (8.5-10.1) Total Bilirubin 0.3 mg/dL (0.2-1.0) Aspartate Amino Transf (AST/SGOT) 131 U/L (15-37) Alanine Aminotransferase (ALT/SGPT) 81 U/L (14-59) Alkaline Phosphatase 38 U/L (46-116) Total Protein 5.9 g/dL (6.4-8.2) Albumin 2.1 g/dL (3.4-5.0) Albumin/Globulin Ratio 0.6 (1.0-1.7) O2 Saturation 95 % (92-99) Arterial Blood pH 7.43 (7.35-7.45) Arterial Blood pCO2 at Patient Temp 32 mmHg (35-46) Arterial Blood pO2 at Patient Temp 83 mmHg (65-108) Arterial Blood HCO3 21 mmol/L (21-28) Arterial Blood Base Excess -3 mmol/L (-3-3) FiO2 40 Test 02/12/18 09:45 O2 Saturation 93 % (92-99) Arterial Blood pH 7.43 (7.35-7.45) Arterial Blood pCO2 at Patient Temp 31 mmHg (35-46) Arterial Blood pO2 at Patient Temp 68 mmHg (65-108) Arterial Blood HCO3 20 mmol/L (21-28) Arterial Blood Base Excess -3 mmol/L (-3-3) FiO2 40 Microbiology Micro Microbiology 02/08/18 Blood Culture - Preliminary, Resulted NO GROWTH AFTER 3 DAYS 02/10/18 - Final, Resulted 02/10/18 - Final, Resulted 02/10/18 - Final, Resulted 02/10/18 Gram Stain Evaluation - Final, Resulted 02/10/18 Sputum Culture, Resulted Pending Physical Exam HEENT: Neck Supple W Full Motion LUNGS: Other (basilar crackles) Heart: RRR (SR) Abdomen: Soft N/T Neurology: other (drowsy) Assessment Assessment 1. Acute hypoxic respiratory failure: intubated with vent 2. Acute diastolic heart failure: multifactorial. 3. Severe multi-region peripheral vascular disease as above. We'll continue on present treatments at this time. On heparin. 4. NSTEMI: Peaked trop at 44.EF at 50% with possible mild hypokinesis in the distal septal wall. 5. PAFIB: remains SR 6. History of CVA. 7. ANGELICA on CKD3: possible ATN. Cr 4.0. renal function worse. nephrology following 8. Metabolic encephalopathy 9. Accelerated HTN: now off sedation. currently ABP in the 120s Recommendations 1. Continue heparin drip for now for stroke prevention and NSTEMI 2. ASA, lipitor. Repeat trop. 3. Off levophed, BP stable. Off sedation, currently being weaned off vent. Will reevaluate for ischemic workup consideration once renal and pulmonary status are better. 4. Labetolol IV PRN. Supportive care. Will reevaluate meds once PO allowed. No ACEI./ARB. ROXANA GRIGSBY APRN Feb 12, 2018 16:21
[2018-02-12] MEDS: ASPIRIN CHEWABLE 81 MG TABLET. PO SCH (18:03)
--- NOTE | 2018-02-12 18:15 | RAD ---
Renal ultrasound History:ANGELICA Technique: Sonographic imaging of both kidneys. Right kidney: * 11.7 cm length. * No evidence of calcified stone or hydronephrosis. * No significant renal lesion. Left kidney: * 9.7 cm length. * No evidence of calcified stone or hydronephrosis. * No significant renal lesion. Urinary bladder: Contains a catheter and is nondistended, not evaluated Miscellaneous findings: None Impression: No sonographic abnormality of either kidney. Electronically signed by: Ant Berrios MD (02/12/2018 6:11 PM) [id number]
[2018-02-12] MEDS: HEPARIN 25,000UTS/500ML PREMIX 500 ML IV PRN (19:46)
[2018-02-12] MEDS: ATORVASTATIN CALCIUM 10 MG TABLET. PO SCH (21:55)
[2018-02-12] MEDS: FAMOTIDINE 20 MG/2 ML VIAL IVP SCH (21:56)
[2018-02-13] VITALS (36 sets, daily range): BP systolic 69–177; BP diastolic 49–98
[2018-02-13] MEDS: ONDANSETRON ODT 4 MG TAB.RAPDIS. PO SCH ×4 (00:14→17:55)
[2018-02-13] MEDS: LABETALOL 20 MG/4 ML DISP.SYRIN. IVP PRN (05:34)
[2018-02-13 06:04] LABS: BASO % 0 % (0-3); EOS % 0 % (0-3); HEMATOCRIT 34.6 % (36.0-47.0); HEMOGLOBIN 11.7 g/dL (12.0-15.5); LYMPH # 0.7 x10^3/uL (1.0-4.8); LYMPH % 7 % (24-48); MEAN CORPUSCULAR HEMOGLOBIN 31 pg (25-35); MEAN CORPUSCULAR HGB CONC 34 g/dL (31-37); MEAN CORPUSCULAR VOLUME 91 fL (79-100); MONO # 0.5 x10^3/uL (0.0-1.1); MONO % 5 % (0-9); NEUT % 88 % (31-73); PLATELET COUNT 172 x10^3/uL (140-400); RED CELL DISTRIBUTION WIDTH 17.2 % (11.5-14.5); WHITE BLOOD COUNT 10.2 x10^3/uL (4.0-11.0)
[2018-02-13 06:32] LABS: ALBUMIN/GLOBULIN RATIO 0.5 (1.0-1.7); CALCIUM 7.4 mg/dL (8.5-10.1); GFR 8.7; POTASSIUM 3.6 mmol/L (3.5-5.1); TOTAL BILIRUBIN 0.3 mg/dL (0.2-1.0); TOTAL PROTEIN 5.8 g/dL (6.4-8.2)
--- NOTE | 2018-02-13 06:44 | PDOC ---
Infectious Disease Note Subjective Subjective Developed worsening respiratory failure 02/09 now intubated and sedated No fevers times one last pm No diarrhea ROS ROS unable to obtain Vital Sign Vital Signs Vital Signs Date Time Temp Pulse Resp B/P (MAP) Pulse Ox O2 Delivery O2 Flow Rate FiO2 02/13/18 06:00 93 20 130/73 (92) 94 Ventilator 02/13/18 04:00 98.6 98.6 Physical Exam PHYSICAL EXAM GENERAL: Intubated and alert some HEENT: Pupils equally round & reactive. ETT, OGT NECK: supple LUNGS: Clear to auscultation. HEART: S1, S2. ABDOMEN: Obese, soft. No grimace or guarding to palpation. Bowel sounds present. GENITOURINARY: Indwelling Forman in place. EXTREMITIES: Trace edema in lower extremities bilaterally. No cyanosis. Mitts SKIN: Warm without rash. NEUROLOGIC: Alert some RIJ - clean ok Labs Lab Laboratory Tests Test 02/12/18 08:20 02/12/18 09:45 02/13/18 05:45 O2 Saturation 95 % (92-99) 93 % (92-99) Arterial Blood pH 7.43 (7.35-7.45) 7.43 (7.35-7.45) Arterial Blood pCO2 at Patient Temp 32 mmHg (35-46) 31 mmHg (35-46) Arterial Blood pO2 at Patient Temp 83 mmHg (65-108) 68 mmHg (65-108) Arterial Blood HCO3 21 mmol/L (21-28) 20 mmol/L (21-28) Arterial Blood Base Excess -3 mmol/L (-3-3) -3 mmol/L (-3-3) FiO2 40 40 White Blood Count 10.2 x10^3/uL (4.0-11.0) Red Blood Count 3.80 x10^6/uL (3.50-5.40) Hemoglobin 11.7 g/dL (12.0-15.5) Hematocrit 34.6 % (36.0-47.0) Mean Corpuscular Volume 91 fL (79-100) Mean Corpuscular Hemoglobin 31 pg (25-35) Mean Corpuscular Hemoglobin Concent 34 g/dL (31-37) Red Cell Distribution Width 17.2 % (11.5-14.5) Platelet Count 172 x10^3/uL (140-400) Neutrophils (%) (Auto) 88 % (31-73) Lymphocytes (%) (Auto) 7 % (24-48) Monocytes (%) (Auto) 5 % (0-9) Eosinophils (%) (Auto) 0 % (0-3) Basophils (%) (Auto) 0 % (0-3) Neutrophils # (Auto) 9.0 x10^3uL (1.8-7.7) Lymphocytes # (Auto) 0.7 x10^3/uL (1.0-4.8) Monocytes # (Auto) 0.5 x10^3/uL (0.0-1.1) Eosinophils # (Auto) 0.0 x10^3/uL (0.0-0.7) Basophils # (Auto) 0.0 x10^3/uL (0.0-0.2) Heparin Anti-Xa Act, Unfractionated 0.23 IU/mL (0.30-0.70) Sodium Level 146 mmol/L (136-145) Potassium Level 3.6 mmol/L (3.5-5.1) Chloride Level 108 mmol/L (98-107) Carbon Dioxide Level 20 mmol/L (21-32) Anion Gap 18 (6-14) Blood Urea Nitrogen 124 mg/dL (7-20) Creatinine 5.0 mg/dL (0.6-1.0) Estimated GFR (Cockcroft-Gault) 8.7 BUN/Creatinine Ratio 25 (6-20) Glucose Level 187 mg/dL (70-99) Calcium Level 7.4 mg/dL (8.5-10.1) Total Bilirubin 0.3 mg/dL (0.2-1.0) Aspartate Amino Transf (AST/SGOT) 87 U/L (15-37) Alanine Aminotransferase (ALT/SGPT) 70 U/L (14-59) Alkaline Phosphatase 62 U/L (46-116) Total Protein 5.8 g/dL (6.4-8.2) Albumin 2.0 g/dL (3.4-5.0) Albumin/Globulin Ratio 0.5 (1.0-1.7) Micro Microbiology 02/08/18 Blood Culture - Preliminary, Resulted NO GROWTH AFTER 1 DAY Objective Assessment Fever times one overnight 02/11 - better Sputum with GPC from 02/10 + BM finally Sepsis with lactic acidosis, present on admission.- better off Levophed Acute respiratory failure, likely aspirated. s/p intubation now on Solumedrol Hypotension resolved ALLERGY TO METRONIDAZOLE. ANGELICA - worsing Non-ST elevation myocardial infarction. Troponin up to 44.56 now Acute diastolic heart failure. Paroxysmal atrial fibrillation. Peripheral vascular disease. History of seizures. History of Clostridium difficile, with fecal transplant. Plan Plan of Care F/u Repeat Blood F/u sputum cults Cont Zyvox/Micafungin/Cefepime started 02/12 - avoid Meropenem if possible with h/o Seizures F/u Blood cultures from 02/09 pending Given ANGELICA avoiding vanc Monitor for loose stool given h/o C-diff Monitor labs/temp and renal function closely Expect WBC to increase with steroid Labs in am Supportive care D/w RN Critically ill AMOR ESCOBAR MD Feb 13, 2018 06:44
[2018-02-13 08:16] LABS: % BANDS 26 % (0-9); % LYMPHS 5 % (24-48); % MONOS 4 % (0-10); % SEGS 65 % (35-66); NUCLEATED RBC 1; PLT ESTIMATE ADEQUATE (ADEQUATE)
[2018-02-13] MEDS: BUDESONIDE 0.5 MG/2 ML NEBU. NEB SCH ×2 (08:17→19:59)
[2018-02-13] MEDS: IPRATROPIUM BROMIDE 0.5 MG/2.5 ML NEBU. NEB SCH ×4 (08:17→19:59)
[2018-02-13] MEDS: MAGNESIUM HYDROXIDE 2,400 MG/30 ML ORAL.SUSP. PO SCH (08:18)
[2018-02-13] MEDS: ASPIRIN CHEWABLE 81 MG TABLET. PO SCH (08:18)
[2018-02-13] MEDS: methylPREDNISolone SOD SUCC PF 40 MG/ML VIAL. IV SCH ×2 (08:18→23:16)
[2018-02-13] MEDS: MAGNESIUM OXIDE 400 MG TABLET PO SCH (08:18)
[2018-02-13 08:19] LABS: ANISOCYTOSIS SLIGHT; BURR CELLS FEW; OVALOCYTES FEW; SPHEROCYTES OCC
[2018-02-13] MEDS: CEFEPIME HCL IV Push 1 GM VIAL. IVP SCH (08:19)
[2018-02-13 09:39] LABS: BASE EXCESS ABG -4 mmol/L (-3-3); HCO3 ABG 18 mmol/L (21-28); PCO2 ABG 26 mmHg (35-46); PO2 ABG 69 mmHg (65-108); SAT O2 ABG 93 % (92-99)
[2018-02-13 09:41] LABS: FIO2 ABG 40
--- NOTE | 2018-02-13 10:09 | PDOC ---
CARDIO Progress Notes Date and Time Date of Service 02/13/18 Time of Evaluation 1005 Subjective Subjective: Other (intubated) Vitals Vitals Vital Signs Date Time Temp Pulse Resp B/P (MAP) Pulse Ox O2 Delivery O2 Flow Rate FiO2 02/13/18 08:20 20 96 Ventilator 02/13/18 06:00 93 130/73 (92) 02/13/18 04:00 98.6 98.6 Weight Weight [ ] Input and Output Intake and Output Intake and Output 02/13/18 07:00 Intake Total 2736.17 ml Output Total 627 ml Balance 2109.17 ml IV Total 927.17 ml Tube Feeding 1659 ml Other 150 ml Output Urine Total 627 ml Gastric Drainage Total 0 ml # Bowel Movements 1 Laboratory Labs Laboratory Tests Test 02/13/18 05:45 02/13/18 09:30 White Blood Count 10.2 x10^3/uL (4.0-11.0) Red Blood Count 3.80 x10^6/uL (3.50-5.40) Hemoglobin 11.7 g/dL (12.0-15.5) Hematocrit 34.6 % (36.0-47.0) Mean Corpuscular Volume 91 fL (79-100) Mean Corpuscular Hemoglobin 31 pg (25-35) Mean Corpuscular Hemoglobin Concent 34 g/dL (31-37) Red Cell Distribution Width 17.2 % (11.5-14.5) Platelet Count 172 x10^3/uL (140-400) Neutrophils (%) (Auto) 88 % (31-73) Lymphocytes (%) (Auto) 7 % (24-48) Monocytes (%) (Auto) 5 % (0-9) Eosinophils (%) (Auto) 0 % (0-3) Basophils (%) (Auto) 0 % (0-3) Neutrophils # (Auto) 9.0 x10^3uL (1.8-7.7) Lymphocytes # (Auto) 0.7 x10^3/uL (1.0-4.8) Monocytes # (Auto) 0.5 x10^3/uL (0.0-1.1) Eosinophils # (Auto) 0.0 x10^3/uL (0.0-0.7) Basophils # (Auto) 0.0 x10^3/uL (0.0-0.2) Segmented Neutrophils % 65 % (35-66) Band Neutrophils % 26 % (0-9) Lymphocytes % 5 % (24-48) Monocytes % 4 % (0-10) Nucleated Red Blood Cells 1 Platelet Estimate Adequate (ADEQUATE) Anisocytosis Slight Spherocytes Occ Ovalocytes Few [place] Cells Few Heparin Anti-Xa Act, Unfractionated 0.23 IU/mL (0.30-0.70) Sodium Level 146 mmol/L (136-145) Potassium Level 3.6 mmol/L (3.5-5.1) Chloride Level 108 mmol/L (98-107) Carbon Dioxide Level 20 mmol/L (21-32) Anion Gap 18 (6-14) Blood Urea Nitrogen 124 mg/dL (7-20) Creatinine 5.0 mg/dL (0.6-1.0) Estimated GFR (Cockcroft-Gault) 8.7 BUN/Creatinine Ratio 25 (6-20) Glucose Level 187 mg/dL (70-99) Calcium Level 7.4 mg/dL (8.5-10.1) Total Bilirubin 0.3 mg/dL (0.2-1.0) Aspartate Amino Transf (AST/SGOT) 87 U/L (15-37) Alanine Aminotransferase (ALT/SGPT) 70 U/L (14-59) Alkaline Phosphatase 62 U/L (46-116) Total Protein 5.8 g/dL (6.4-8.2) Albumin 2.0 g/dL (3.4-5.0) Albumin/Globulin Ratio 0.5 (1.0-1.7) O2 Saturation 93 % (92-99) Arterial Blood pH 7.47 (7.35-7.45) Arterial Blood pCO2 at Patient Temp 26 mmHg (35-46) Arterial Blood pO2 at Patient Temp 69 mmHg (65-108) Arterial Blood HCO3 18 mmol/L (21-28) Arterial Blood Base Excess -4 mmol/L (-3-3) FiO2 40 Microbiology Micro Microbiology 02/08/18 Blood Culture - Preliminary, Resulted NO GROWTH AFTER 3 DAYS 02/10/18 - Final, Resulted 02/10/18 - Final, Resulted 02/10/18 - Final, Resulted 02/10/18 Gram Stain Evaluation - Final, Resulted 02/10/18 Sputum Culture, Resulted Pending Physical Exam HEENT: Neck Supple W Full Motion LUNGS: Other (basilar crackles) Heart: RRR (SR; intermittent bursts on AFIB with RVR overnight.) Abdomen: Soft N/T Neurology: other (drowsy) Assessment Assessment 1. Acute hypoxic respiratory failure: intubated with vent. 2. Acute diastolic heart failure: multifactorial. 3. Severe multi-region peripheral vascular disease as above. We'll continue on present treatments at this time. On heparin. 4. NSTEMI: Peaked trop at 44. EF at 50% with possible mild hypokinesis in the distal septal wall. 5. PAFIB; mainly SR, but having short bursts of AFIB with RVR overnight. Uremia likely contributing factors. 6. History of CVA. 7. ANGELICA; renal function worse. Cr now 5.0. nephrology following. possible HD to commence 8. Metabolic encephalopathy 9. Accelerated HTN; labile Recommendations Discontinue heparin gtt. Start ASA and Plavix. Consider anticoagulation if patient having continued AFIB despite HD. ASA, lipitor. Add BB for rate/BP control No KIMBERLY/ARB with ANGELICA Will reevaluate for ischemic workup consideration once renal and pulmonary status are better. RUDOLPH KAMINSKI APRN Feb 13, 2018 10:09
[2018-02-13] MEDS: MICAFUNGIN 100 MG in IV DEXTROSE 5% 100ML 100 ML IV SCH (10:10)
[2018-02-13] MEDS: NICOTINE 14MG PATCH. TD SCH (10:10)
--- NOTE | 2018-02-13 10:34 | PDOC ---
PULMONARY PROGRESS NOTES Subjective PT OFF SEDATION SICE 02/12 NOT FOLLOWING COMMANDS ON PS VT ADEQUATE ON PRESSORS Vitals Vital Signs Date Time Temp Pulse Resp B/P (MAP) Pulse Ox O2 Delivery O2 Flow Rate FiO2 02/13/18 10:00 114 26 166/97 (120) 95 Ventilator 02/13/18 08:00 98.9 98.9 Lungs: Crackles Cardiovascular: S1, S2 Abdomen: Soft, Non-tender Extremities: No Edema Labs Laboratory Tests Test 02/11/18 13:45 02/11/18 18:50 02/11/18 23:55 02/12/18 05:45 Heparin Anti-Xa Act, Unfractionated 0.40 IU/mL (0.30-0.70) 0.34 IU/mL (0.30-0.70) 0.39 IU/mL (0.30-0.70) Lactic Acid Level 1.1 mmol/L (0.4-2.0) White Blood Count 4.8 x10^3/uL (4.0-11.0) Red Blood Count 3.75 x10^6/uL (3.50-5.40) Hemoglobin 11.5 g/dL (12.0-15.5) Hematocrit 34.1 % (36.0-47.0) Mean Corpuscular Volume 91 fL (79-100) Mean Corpuscular Hemoglobin 31 pg (25-35) Mean Corpuscular Hemoglobin Concent 34 g/dL (31-37) Red Cell Distribution Width 17.4 % (11.5-14.5) Platelet Count 184 x10^3/uL (140-400) Neutrophils (%) (Auto) 81 % (31-73) Lymphocytes (%) (Auto) 14 % (24-48) Monocytes (%) (Auto) 5 % (0-9) Eosinophils (%) (Auto) 0 % (0-3) Basophils (%) (Auto) 0 % (0-3) Neutrophils # (Auto) 3.9 x10^3uL (1.8-7.7) Lymphocytes # (Auto) 0.7 x10^3/uL (1.0-4.8) Monocytes # (Auto) 0.2 x10^3/uL (0.0-1.1) Eosinophils # (Auto) 0.0 x10^3/uL (0.0-0.7) Basophils # (Auto) 0.0 x10^3/uL (0.0-0.2) Sodium Level 146 mmol/L (136-145) Potassium Level 3.6 mmol/L (3.5-5.1) Chloride Level 109 mmol/L (98-107) Carbon Dioxide Level 24 mmol/L (21-32) Anion Gap 13 (6-14) Blood Urea Nitrogen 97 mg/dL (7-20) Creatinine 4.0 mg/dL (0.6-1.0) Estimated GFR (Cockcroft-Gault) 11.2 BUN/Creatinine Ratio 24 (6-20) Glucose Level 185 mg/dL (70-99) Calcium Level 7.2 mg/dL (8.5-10.1) Total Bilirubin 0.3 mg/dL (0.2-1.0) Aspartate Amino Transf (AST/SGOT) 131 U/L (15-37) Alanine Aminotransferase (ALT/SGPT) 81 U/L (14-59) Alkaline Phosphatase 38 U/L (46-116) Troponin I Quantitative 12.235 ng/mL (0.000-0.055) Total Protein 5.9 g/dL (6.4-8.2) Albumin 2.1 g/dL (3.4-5.0) Albumin/Globulin Ratio 0.6 (1.0-1.7) Test 02/12/18 08:20 02/12/18 09:45 02/13/18 05:45 02/13/18 09:30 O2 Saturation 95 % (92-99) 93 % (92-99) 93 % (92-99) Arterial Blood pH 7.43 (7.35-7.45) 7.43 (7.35-7.45) 7.47 (7.35-7.45) Arterial Blood pCO2 at Patient Temp 32 mmHg (35-46) 31 mmHg (35-46) 26 mmHg (35-46) Arterial Blood pO2 at Patient Temp 83 mmHg (65-108) 68 mmHg (65-108) 69 mmHg (65-108) Arterial Blood HCO3 21 mmol/L (21-28) 20 mmol/L (21-28) 18 mmol/L (21-28) Arterial Blood Base Excess -3 mmol/L (-3-3) -3 mmol/L (-3-3) -4 mmol/L (-3-3) FiO2 40 40 40 White Blood Count 10.2 x10^3/uL (4.0-11.0) Red Blood Count 3.80 x10^6/uL (3.50-5.40) Hemoglobin 11.7 g/dL (12.0-15.5) Hematocrit 34.6 % (36.0-47.0) Mean Corpuscular Volume 91 fL (79-100) Mean Corpuscular Hemoglobin 31 pg (25-35) Mean Corpuscular Hemoglobin Concent 34 g/dL (31-37) Red Cell Distribution Width 17.2 % (11.5-14.5) Platelet Count 172 x10^3/uL (140-400) Neutrophils (%) (Auto) 88 % (31-73) Lymphocytes (%) (Auto) 7 % (24-48) Monocytes (%) (Auto) 5 % (0-9) Eosinophils (%) (Auto) 0 % (0-3) Basophils (%) (Auto) 0 % (0-3) Neutrophils # (Auto) 9.0 x10^3uL (1.8-7.7) Lymphocytes # (Auto) 0.7 x10^3/uL (1.0-4.8) Monocytes # (Auto) 0.5 x10^3/uL (0.0-1.1) Eosinophils # (Auto) 0.0 x10^3/uL (0.0-0.7) Basophils # (Auto) 0.0 x10^3/uL (0.0-0.2) Segmented Neutrophils % 65 % (35-66) Band Neutrophils % 26 % (0-9) Lymphocytes % 5 % (24-48) Monocytes % 4 % (0-10) Nucleated Red Blood Cells 1 Platelet Estimate Adequate (ADEQUATE) Anisocytosis Slight Spherocytes Occ Ovalocytes Few [place]yan Cells Few Heparin Anti-Xa Act, Unfractionated 0.23 IU/mL (0.30-0.70) Sodium Level 146 mmol/L (136-145) Potassium Level 3.6 mmol/L (3.5-5.1) Chloride Level 108 mmol/L (98-107) Carbon Dioxide Level 20 mmol/L (21-32) Anion Gap 18 (6-14) Blood Urea Nitrogen 124 mg/dL (7-20) Creatinine 5.0 mg/dL (0.6-1.0) Estimated GFR (Cockcroft-Gault) 8.7 BUN/Creatinine Ratio 25 (6-20) Glucose Level 187 mg/dL (70-99) Calcium Level 7.4 mg/dL (8.5-10.1) Total Bilirubin 0.3 mg/dL (0.2-1.0) Aspartate Amino Transf (AST/SGOT) 87 U/L (15-37) Alanine Aminotransferase (ALT/SGPT) 70 U/L (14-59) Alkaline Phosphatase 62 U/L (46-116) Total Protein 5.8 g/dL (6.4-8.2) Albumin 2.0 g/dL (3.4-5.0) Albumin/Globulin Ratio 0.5 (1.0-1.7) Laboratory Tests Test 02/13/18 05:45 02/13/18 09:30 White Blood Count 10.2 x10^3/uL (4.0-11.0) Red Blood Count 3.80 x10^6/uL (3.50-5.40) Hemoglobin 11.7 g/dL (12.0-15.5) Hematocrit 34.6 % (36.0-47.0) Mean Corpuscular Volume 91 fL (79-100) Mean Corpuscular Hemoglobin 31 pg (25-35) Mean Corpuscular Hemoglobin Concent 34 g/dL (31-37) Red Cell Distribution Width 17.2 % (11.5-14.5) Platelet Count 172 x10^3/uL (140-400) Neutrophils (%) (Auto) 88 % (31-73) Lymphocytes (%) (Auto) 7 % (24-48) Monocytes (%) (Auto) 5 % (0-9) Eosinophils (%) (Auto) 0 % (0-3) Basophils (%) (Auto) 0 % (0-3) Neutrophils # (Auto) 9.0 x10^3uL (1.8-7.7) Lymphocytes # (Auto) 0.7 x10^3/uL (1.0-4.8) Monocytes # (Auto) 0.5 x10^3/uL (0.0-1.1) Eosinophils # (Auto) 0.0 x10^3/uL (0.0-0.7) Basophils # (Auto) 0.0 x10^3/uL (0.0-0.2) Segmented Neutrophils % 65 % (35-66) Band Neutrophils % 26 % (0-9) Lymphocytes % 5 % (24-48) Monocytes % 4 % (0-10) Nucleated Red Blood Cells 1 Platelet Estimate Adequate (ADEQUATE) Anisocytosis Slight Spherocytes Occ Ovalocytes Few [place] Cells Few Heparin Anti-Xa Act, Unfractionated 0.23 IU/mL (0.30-0.70) Sodium Level 146 mmol/L (136-145) Potassium Level 3.6 mmol/L (3.5-5.1) Chloride Level 108 mmol/L (98-107) Carbon Dioxide Level 20 mmol/L (21-32) Anion Gap 18 (6-14) Blood Urea Nitrogen 124 mg/dL (7-20) Creatinine 5.0 mg/dL (0.6-1.0) Estimated GFR (Cockcroft-Gault) 8.7 BUN/Creatinine Ratio 25 (6-20) Glucose Level 187 mg/dL (70-99) Calcium Level 7.4 mg/dL (8.5-10.1) Total Bilirubin 0.3 mg/dL (0.2-1.0) Aspartate Amino Transf (AST/SGOT) 87 U/L (15-37) Alanine Aminotransferase (ALT/SGPT) 70 U/L (14-59) Alkaline Phosphatase 62 U/L (46-116) Total Protein 5.8 g/dL (6.4-8.2) Albumin 2.0 g/dL (3.4-5.0) Albumin/Globulin Ratio 0.5 (1.0-1.7) O2 Saturation 93 % (92-99) Arterial Blood pH 7.47 (7.35-7.45) Arterial Blood pCO2 at Patient Temp 26 mmHg (35-46) Arterial Blood pO2 at Patient Temp 69 mmHg (65-108) Arterial Blood HCO3 18 mmol/L (21-28) Arterial Blood Base Excess -4 mmol/L (-3-3) FiO2 40 Medications Active Scripts Medications Dose Route/Sig Max Daily Dose Days Date Category Zofran (Ondansetron Hcl) 4 Mg Tablet 1 Tab PO Q6HRS 09/20/17 Reported Milk Of Magnesia (Magnesium Hydroxide) 400 Mg/5 Ml Oral.susp 400 Mg PO 09/20/17 Reported Acetaminophen 500 Mg Tablet 1 Tab PO BID 09/20/17 Reported Clonidine Hcl 0.1 Mg Tablet 1 Tab PO QHS 09/20/17 Reported Tramadol Hcl 50 Mg Tablet 50 Mg PO DAILY PRN 09/20/17 Reported Hydralazine Hcl 20 Mg/1 Ml Vial 20 Mg IJ 09/20/17 Reported Gabapentin (Gabapentin) 300 Mg Capsule 300 Mg PO TID 09/20/17 Reported Acidophilus (Lactobacillus Acidophilus) 1 Each Capsule 1 Each PO 09/20/17 Reported Atorvastatin Calcium 10 Mg Tablet 1 Tab PO DAILY 09/20/17 Reported Vitamin C (Ascorbic Acid) 500 Mg Tablet.er 500 Mg PO 09/20/17 Reported Aspirin 325 Mg Tablet 1 Tab PO DAILY 09/20/17 Reported Colace (Docusate Sodium) 100 Mg Capsule 1 Cap PO BID 09/20/17 Reported Magnesium Oxide 400 Mg Tablet 1 Tab PO DAILY 09/20/17 Reported Multivitamins (Multivitamin) 1 Each Tablet 1 Tab PO DAILY 09/20/17 Reported NICODERM CQ 14mg (Nicotine) 1 Each Patch.td24 1 Patch TP DAILY 09/20/17 Reported Miralax (Polyethylene Glycol 3350) 17 Gm Powd.pack 1 Packet PO DAILY 09/20/17 Reported Albuterol Sulfate Neb Soln (Albuterol Sulfate) 0.63 Mg/3 Ml Vial.neb 1 Vial NEB QID 09/20/17 Reported Prednisone 20 Mg Tablet 1 Tab PO DAILY 09/20/17 Reported Percocet 5-325 Mg Tablet (Oxycodone/Acetaminophen) 1 Each Tablet 1 Tab PO BID 3 07/31/17 Rx Seroquel (Quetiapine Fumarate) 25 Mg Tablet 1 Tab PO QHS 10/21/16 Reported Hydrochlorothiazide Tablet (Hydrochlorothiazide) 12.5 Mg Tablet 1 Tab PO QHS 10/21/16 Reported Lexapro (Escitalopram Oxalate) 20 Mg Tablet 1 Tab PO QHS 10/21/16 Reported Hydrocodone-Apap 10-325 (Hydrocodone Bit/Acetaminophen) 1 Each Tablet 1 Tab PO PRN Q4HRS 10/21/16 Reported Oxycontin (Oxycodone HCl) 10 Mg Tab.er.12h 10 Mg PO BID 10/21/16 Reported Comments cxr reviewed ett too high Persistent patchy perihilar interstitial changes are identified with more focal nodular airspace density in the left upper lobe. There is trace right pleural effusion versus pleural thickening. No pneumothorax. Impression . IMPRESSION: 1. Acute hypoxemic respiratory failure secondary to acute diastolic congestive heart failure, non-ST elevation myocardial infarction/SEPSIS 2. Abnormal chest x-ray/CHF PNEUMONIA 3. Acute diastolic congestive heart failure. 4. Chronic obstructive pulmonary disease with mild acute exacerbation. 5. Acute bronchitis/ASPIRATION PNEUMONIA 6. Smoker. 7. Leukocytosis. 8. History of cerebrovascular accident. 9. hypotension 10. NSTEMI PER CARD Plan . CONTINUE SUPPORT TILL NEURO STATUS IMPROVES WILL KEEP OFF SEDATION AND HOPEFULLY EXTUBATE IN AM ANITBXN PER ID FOLLOW CARD INPUT ABG AND CXR NOTED HEPARIN CCT 30 MIN D/W JUDE DALE MD Feb 13, 2018 10:34
[2018-02-13] MEDS: METOPROLOL TART IMMED RELEASE 25 MG TABLET. PO SCH ×2 (10:45→23:17)
[2018-02-13] MEDS ORDERED: LIDOCAINE WITH 8.4% SOD BICARB 3 ML DISP.SYRIN. ONE (13:32)
[2018-02-13] MEDS ORDERED: HEPARIN for IV BOLUS 10,000 UNIT/10 ML VIAL. ONE (13:32)
--- NOTE | 2018-02-13 13:35 | PDOC ---
PROGRESS NOTES Chief Complaint Chief Complaint Acute hypoxic respiratory failure NOW IPPV (02/09/18), Spontaneous respiration on 40% O2 Sedated with fentanyl Levophed drip COPD, Smoker - 1 ppday? Severe sepsis - with respiratory failure likely 2/2 pneumonia/bronchitis, fever 102.6F, leukocytosis, tachycardia, Acute diastolic heart failure - BNP of greater than 35,000. diuresis for pulmonary congestion PAD - with carotid, AAA, renovascular disease - cont asa plavix NSTEMI - elevated troponin at 17. Paroxysmal atrial fibrillation. Now in sinus rhythm. on coumadin, INR subtherapeutic, History of a previous CVA - Acute metabolic encephalopathy secondary to multifactorial see above ANGELICA, VMN - new (02/10/18) History of Present Illness History of Present Illness pt. was seen and examined Discussed patient with nurse at the bedside, discussed need for GI consult from discoloration of residuals, Sedated with fentanyl Spontaneous respiration on 40% O2 Vitals Vitals Vital Signs Date Time Temp Pulse Resp B/P (MAP) Pulse Ox O2 Delivery O2 Flow Rate FiO2 02/13/18 12:29 96 Ventilator 02/13/18 11:00 100 24 153/84 (107) 02/13/18 08:00 98.9 98.9 Physical Exam Physical Exam GENERAL: Intubated and alert some HEENT: Pupils equally round & reactive. ETT, OGT NECK: supple LUNGS: Clear to auscultation. HEART: S1, S2. ABDOMEN: Obese, soft. No grimace or guarding to palpation. Bowel sounds present. GENITOURINARY: Indwelling Forman in place. EXTREMITIES: Trace edema in lower extremities bilaterally. No cyanosis. Mitts SKIN: Warm without rash. NEUROLOGIC: Alert some RIJ - clean ok General: Other (intubated on a ventilator.) Heart: Regular rate Lungs: Crackles Abdomen: Normal bowel sounds, Other (possible GI bleed, investigate) Extremities: No clubbing, No cyanosis, No edema, Normal pulses, No tenderness/ swelling Skin: No rashes, No breakdown, No significant lesion Labs LABS Laboratory Tests Test 02/13/18 05:45 02/13/18 09:30 White Blood Count 10.2 x10^3/uL (4.0-11.0) Red Blood Count 3.80 x10^6/uL (3.50-5.40) Hemoglobin 11.7 g/dL (12.0-15.5) Hematocrit 34.6 % (36.0-47.0) Mean Corpuscular Volume 91 fL (79-100) Mean Corpuscular Hemoglobin 31 pg (25-35) Mean Corpuscular Hemoglobin Concent 34 g/dL (31-37) Red Cell Distribution Width 17.2 % (11.5-14.5) Platelet Count 172 x10^3/uL (140-400) Neutrophils (%) (Auto) 88 % (31-73) Lymphocytes (%) (Auto) 7 % (24-48) Monocytes (%) (Auto) 5 % (0-9) Eosinophils (%) (Auto) 0 % (0-3) Basophils (%) (Auto) 0 % (0-3) Neutrophils # (Auto) 9.0 x10^3uL (1.8-7.7) Lymphocytes # (Auto) 0.7 x10^3/uL (1.0-4.8) Monocytes # (Auto) 0.5 x10^3/uL (0.0-1.1) Eosinophils # (Auto) 0.0 x10^3/uL (0.0-0.7) Basophils # (Auto) 0.0 x10^3/uL (0.0-0.2) Segmented Neutrophils % 65 % (35-66) Band Neutrophils % 26 % (0-9) Lymphocytes % 5 % (24-48) Monocytes % 4 % (0-10) Nucleated Red Blood Cells 1 Platelet Estimate Adequate (ADEQUATE) Anisocytosis Slight Spherocytes Occ Ovalocytes Few [place] Cells Few Heparin Anti-Xa Act, Unfractionated 0.23 IU/mL (0.30-0.70) Sodium Level 146 mmol/L (136-145) Potassium Level 3.6 mmol/L (3.5-5.1) Chloride Level 108 mmol/L (98-107) Carbon Dioxide Level 20 mmol/L (21-32) Anion Gap 18 (6-14) Blood Urea Nitrogen 124 mg/dL (7-20) Creatinine 5.0 mg/dL (0.6-1.0) Estimated GFR (Cockcroft-Gault) 8.7 BUN/Creatinine Ratio 25 (6-20) Glucose Level 187 mg/dL (70-99) Calcium Level 7.4 mg/dL (8.5-10.1) Total Bilirubin 0.3 mg/dL (0.2-1.0) Aspartate Amino Transf (AST/SGOT) 87 U/L (15-37) Alanine Aminotransferase (ALT/SGPT) 70 U/L (14-59) Alkaline Phosphatase 62 U/L (46-116) Total Protein 5.8 g/dL (6.4-8.2) Albumin 2.0 g/dL (3.4-5.0) Albumin/Globulin Ratio 0.5 (1.0-1.7) O2 Saturation 93 % (92-99) Arterial Blood pH 7.47 (7.35-7.45) Arterial Blood pCO2 at Patient Temp 26 mmHg (35-46) Arterial Blood pO2 at Patient Temp 69 mmHg (65-108) Arterial Blood HCO3 18 mmol/L (21-28) Arterial Blood Base Excess -4 mmol/L (-3-3) FiO2 40 Review of Systems Review of Systems unable to obtain Assessment and Plan Assessmemt and Plan Acute hypoxic respiratory failure NOW IPPV (02/09/18), Spontaneous respiration on 40% O2 Possible GI Bleed, discoloration of residual feed- 02/13/18 Sedated with fentanyl Levophed drip d/c'd COPD, Smoker - 1 ppday? Severe sepsis - with respiratory failure likely 2/2 pneumonia/bronchitis, fever 102.6F, leukocytosis, tachycardia, Acute diastolic heart failure - BNP of greater than 35,000. diuresis for pulmonary congestion PAD - with carotid, AAA, renovascular disease - cont asa plavix NSTEMI - elevated troponin at 17. Paroxysmal atrial fibrillation. Now in sinus rhythm. on coumadin, INR subtherapeutic, History of a previous CVA - Acute metabolic encephalopathy secondary to multifactorial see above ANGELICA, VMN - new (02/10/18) Plan Consult GI for possible GI bleed ICU monitoring Tolerating Spontaneous respiration day 1 Recheck Labs OG feeds 30cc/hr Comment Review of Relevant I have reviewed the following items pat (where applicable) has been applied. Labs Laboratory Tests Test 02/11/18 13:45 02/11/18 18:50 02/11/18 23:55 02/12/18 05:45 Heparin Anti-Xa Act, Unfractionated 0.40 IU/mL (0.30-0.70) 0.34 IU/mL (0.30-0.70) 0.39 IU/mL (0.30-0.70) Lactic Acid Level 1.1 mmol/L (0.4-2.0) White Blood Count 4.8 x10^3/uL (4.0-11.0) Red Blood Count 3.75 x10^6/uL (3.50-5.40) Hemoglobin 11.5 g/dL (12.0-15.5) Hematocrit 34.1 % (36.0-47.0) Mean Corpuscular Volume 91 fL (79-100) Mean Corpuscular Hemoglobin 31 pg (25-35) Mean Corpuscular Hemoglobin Concent 34 g/dL (31-37) Red Cell Distribution Width 17.4 % (11.5-14.5) Platelet Count 184 x10^3/uL (140-400) Neutrophils (%) (Auto) 81 % (31-73) Lymphocytes (%) (Auto) 14 % (24-48) Monocytes (%) (Auto) 5 % (0-9) Eosinophils (%) (Auto) 0 % (0-3) Basophils (%) (Auto) 0 % (0-3) Neutrophils # (Auto) 3.9 x10^3uL (1.8-7.7) Lymphocytes # (Auto) 0.7 x10^3/uL (1.0-4.8) Monocytes # (Auto) 0.2 x10^3/uL (0.0-1.1) Eosinophils # (Auto) 0.0 x10^3/uL (0.0-0.7) Basophils # (Auto) 0.0 x10^3/uL (0.0-0.2) Sodium Level 146 mmol/L (136-145) Potassium Level 3.6 mmol/L (3.5-5.1) Chloride Level 109 mmol/L (98-107) Carbon Dioxide Level 24 mmol/L (21-32) Anion Gap 13 (6-14) Blood Urea Nitrogen 97 mg/dL (7-20) Creatinine 4.0 mg/dL (0.6-1.0) Estimated GFR (Cockcroft-Gault) 11.2 BUN/Creatinine Ratio 24 (6-20) Glucose Level 185 mg/dL (70-99) Calcium Level 7.2 mg/dL (8.5-10.1) Total Bilirubin 0.3 mg/dL (0.2-1.0) Aspartate Amino Transf (AST/SGOT) 131 U/L (15-37) Alanine Aminotransferase (ALT/SGPT) 81 U/L (14-59) Alkaline Phosphatase 38 U/L (46-116) Troponin I Quantitative 12.235 ng/mL (0.000-0.055) Total Protein 5.9 g/dL (6.4-8.2) Albumin 2.1 g/dL (3.4-5.0) Albumin/Globulin Ratio 0.6 (1.0-1.7) Test 02/12/18 08:20 02/12/18 09:45 02/13/18 05:45 02/13/18 09:30 O2 Saturation 95 % (92-99) 93 % (92-99) 93 % (92-99) Arterial Blood pH 7.43 (7.35-7.45) 7.43 (7.35-7.45) 7.47 (7.35-7.45) Arterial Blood pCO2 at Patient Temp 32 mmHg (35-46) 31 mmHg (35-46) 26 mmHg (35-46) Arterial Blood pO2 at Patient Temp 83 mmHg (65-108) 68 mmHg (65-108) 69 mmHg (65-108) Arterial Blood HCO3 21 mmol/L (21-28) 20 mmol/L (21-28) 18 mmol/L (21-28) Arterial Blood Base Excess -3 mmol/L (-3-3) -3 mmol/L (-3-3) -4 mmol/L (-3-3) FiO2 40 40 40 White Blood Count 10.2 x10^3/uL (4.0-11.0) Red Blood Count 3.80 x10^6/uL (3.50-5.40) Hemoglobin 11.7 g/dL (12.0-15.5) Hematocrit 34.6 % (36.0-47.0) Mean Corpuscular Volume 91 fL (79-100) Mean Corpuscular Hemoglobin 31 pg (25-35) Mean Corpuscular Hemoglobin Concent 34 g/dL (31-37) Red Cell Distribution Width 17.2 % (11.5-14.5) Platelet Count 172 x10^3/uL (140-400) Neutrophils (%) (Auto) 88 % (31-73) Lymphocytes (%) (Auto) 7 % (24-48) Monocytes (%) (Auto) 5 % (0-9) Eosinophils (%) (Auto) 0 % (0-3) Basophils (%) (Auto) 0 % (0-3) Neutrophils # (Auto) 9.0 x10^3uL (1.8-7.7) Lymphocytes # (Auto) 0.7 x10^3/uL (1.0-4.8) Monocytes # (Auto) 0.5 x10^3/uL (0.0-1.1) Eosinophils # (Auto) 0.0 x10^3/uL (0.0-0.7) Basophils # (Auto) 0.0 x10^3/uL (0.0-0.2) Segmented Neutrophils % 65 % (35-66) Band Neutrophils % 26 % (0-9) Lymphocytes % 5 % (24-48) Monocytes % 4 % (0-10) Nucleated Red Blood Cells 1 Platelet Estimate Adequate (ADEQUATE) Anisocytosis Slight Spherocytes Occ Ovalocytes Few [place] Cells Few Heparin Anti-Xa Act, Unfractionated 0.23 IU/mL (0.30-0.70) Sodium Level 146 mmol/L (136-145) Potassium Level 3.6 mmol/L (3.5-5.1) Chloride Level 108 mmol/L (98-107) Carbon Dioxide Level 20 mmol/L (21-32) Anion Gap 18 (6-14) Blood Urea Nitrogen 124 mg/dL (7-20) Creatinine 5.0 mg/dL (0.6-1.0) Estimated GFR (Cockcroft-Gault) 8.7 BUN/Creatinine Ratio 25 (6-20) Glucose Level 187 mg/dL (70-99) Calcium Level 7.4 mg/dL (8.5-10.1) Total Bilirubin 0.3 mg/dL (0.2-1.0) Aspartate Amino Transf (AST/SGOT) 87 U/L (15-37) Alanine Aminotransferase (ALT/SGPT) 70 U/L (14-59) Alkaline Phosphatase 62 U/L (46-116) Total Protein 5.8 g/dL (6.4-8.2) Albumin 2.0 g/dL (3.4-5.0) Albumin/Globulin Ratio 0.5 (1.0-1.7) Laboratory Tests Test 02/13/18 05:45 02/13/18 09:30 White Blood Count 10.2 x10^3/uL (4.0-11.0) Red Blood Count 3.80 x10^6/uL (3.50-5.40) Hemoglobin 11.7 g/dL (12.0-15.5) Hematocrit 34.6 % (36.0-47.0) Mean Corpuscular Volume 91 fL (79-100) Mean Corpuscular Hemoglobin 31 pg (25-35) Mean Corpuscular Hemoglobin Concent 34 g/dL (31-37) Red Cell Distribution Width 17.2 % (11.5-14.5) Platelet Count 172 x10^3/uL (140-400) Neutrophils (%) (Auto) 88 % (31-73) Lymphocytes (%) (Auto) 7 % (24-48) Monocytes (%) (Auto) 5 % (0-9) Eosinophils (%) (Auto) 0 % (0-3) Basophils (%) (Auto) 0 % (0-3) Neutrophils # (Auto) 9.0 x10^3uL (1.8-7.7) Lymphocytes # (Auto) 0.7 x10^3/uL (1.0-4.8) Monocytes # (Auto) 0.5 x10^3/uL (0.0-1.1) Eosinophils # (Auto) 0.0 x10^3/uL (0.0-0.7) Basophils # (Auto) 0.0 x10^3/uL (0.0-0.2) Segmented Neutrophils % 65 % (35-66) Band Neutrophils % 26 % (0-9) Lymphocytes % 5 % (24-48) Monocytes % 4 % (0-10) Nucleated Red Blood Cells 1 Platelet Estimate Adequate (ADEQUATE) Anisocytosis Slight Spherocytes Occ Ovalocytes Few [place] Cells Few Heparin Anti-Xa Act, Unfractionated 0.23 IU/mL (0.30-0.70) Sodium Level 146 mmol/L (136-145) Potassium Level 3.6 mmol/L (3.5-5.1) Chloride Level 108 mmol/L (98-107) Carbon Dioxide Level 20 mmol/L (21-32) Anion Gap 18 (6-14) Blood Urea Nitrogen 124 mg/dL (7-20) Creatinine 5.0 mg/dL (0.6-1.0) Estimated GFR (Cockcroft-Gault) 8.7 BUN/Creatinine Ratio 25 (6-20) Glucose Level 187 mg/dL (70-99) Calcium Level 7.4 mg/dL (8.5-10.1) Total Bilirubin 0.3 mg/dL (0.2-1.0) Aspartate Amino Transf (AST/SGOT) 87 U/L (15-37) Alanine Aminotransferase (ALT/SGPT) 70 U/L (14-59) Alkaline Phosphatase 62 U/L (46-116) Total Protein 5.8 g/dL (6.4-8.2) Albumin 2.0 g/dL (3.4-5.0) Albumin/Globulin Ratio 0.5 (1.0-1.7) O2 Saturation 93 % (92-99) Arterial Blood pH 7.47 (7.35-7.45) Arterial Blood pCO2 at Patient Temp 26 mmHg (35-46) Arterial Blood pO2 at Patient Temp 69 mmHg (65-108) Arterial Blood HCO3 18 mmol/L (21-28) Arterial Blood Base Excess -4 mmol/L (-3-3) FiO2 40 Microbiology 02/12/18 Blood Culture - Preliminary, Resulted NO GROWTH AFTER 1 DAY 02/10/18 - Final, Complete 02/10/18 - Final, Complete 02/10/18 - Final, Complete 02/10/18 Gram Stain Evaluation - Final, Complete 02/10/18 Sputum Culture - Final, Complete 02/10/18 Sputum Result 1 - Final, Complete Medications Current Medications Albuterol/ Ipratropium (Duoneb) 3 ml 1X ONCE NEB Last administered on at 17:14; Start 02/08/18 at 16:00; Stop 02/08/18 at 16:01; Status DC Vancomycin HCl (Vanco Per Pharmacy) 1 each PRN DAILY PRN MC SEE COMMENTS Last administered on 02/09/18at 08:59; Start 02/08/18 at 16:15; Stop 02/10/18 at 09 :07; Status DC Piperacillin Sod/ Tazobactam Sod (Zosyn Per Pharmacy) 1 each PRN DAILY PRN MC SEE COMMENTS; Start 02/08/18 at 16:15; Stop 02/12/18 at 07:24; Status DC Vancomycin HCl 1.75 gm/Sodium Chloride 500 ml @ 250 mls/hr 1X ONCE IV Last administered on 02/08/18at 16:36; Start 02/08/18 at 17:00; Stop 02/08/18 at 18 :59; Status DC Piperacillin Sod/ Tazobactam Sod 3.375 gm/Sodium Chloride 50 ml @ 100 mls/hr 1X ONCE IV Last administered on 02/08/18at 16:36; Start 02/08/18 at 16:30; Stop 02/08/18 at 16:59; Status DC Furosemide (Lasix) 20 mg 1X ONCE IVP Last administered on 02/08/18at 16:36; Start 02/08/18 at 16:30; Stop 02/08/18 at 16:31; Status DC Aspirin (Children'S Aspirin) 324 mg 1X ONCE PO Last administered on at 16:36; Start 02/08/18 at 16:30; Stop 02/08/18 at 16:31; Status DC Furosemide (Lasix) 20 mg 1X ONCE IVP Last administered on 02/08/18at 18:07; Start 02/08/18 at 17:00; Stop 02/08/18 at 17:01; Status DC Ondansetron HCl (Zofran) 4 mg 1X ONCE IV Last administered on 02/08/18at 17:00 ; Start 02/08/18 at 17:00; Stop 02/08/18 at 17:01; Status DC Ondansetron HCl (Zofran) 4 mg STK-MED ONCE .ROUTE ; Start 02/08/18 at 16:51; Stop 02/08/18 at 16:52; Status DC Heparin Sodium/ Dextrose 500 ml @ 0 mls/hr CONT PRN IV SEE I/O RECORD; Start 02/08/18 at 17:30; Status UNV Info (Anti-Coagulation Monitoring By Pharmacy) 1 each PRN DAILY PRN MC SEE COMMENTS Last administered on 02/11/18at 12:25; Start 02/08/18 at 17:30; Stop 02/13/18 at 09:17; Status DC Heparin Sodium/ Dextrose 500 ml @ 0 mls/hr CONT PRN IV SEE I/O RECORD Last administered on 02/12/18at 19:46; Start 02/08/18 at 17:30; Stop 02/13/18 at 08 :22; Status DC Heparin Sodium (Porcine) (Heparin Sodium) 1,800 unit PRN Q6HRS PRN IV FOR UFH LEVEL LESS THAN 0.2 Last administered on 02/08/18at 20:10; Start 02/08/18 at 17 :30; Stop 02/13/18 at 08:22; Status DC Ondansetron HCl (Zofran) 4 mg 1X PRN PRN IV NAUSEA/VOMITING; Start 02/08/18 at 18:00; Stop 02/09/18 at 09:06; Status DC Piperacillin Sod/ Tazobactam Sod 3.375 gm/Sodium Chloride 50 ml @ 100 mls/hr Q6HRS IV Last administered on 02/11/18at 05:37; Start 02/09/18 at 00:00; Stop 02/11/18 at 07:14; Status DC Vancomycin HCl 1 gm/Sodium Chloride 250 ml @ 250 mls/hr Q24H IV Last administered on 02/09/18at 16:30; Start 02/09/18 at 16:30; Stop 02/10/18 at 09 :07; Status DC Vancomycin HCl (Vancomycin Trough Level) 1 each 1X ONCE MC ; Start 02/10/18 at 16:00; Stop 02/10/18 at 16:00; Status DC Magnesium Sulfate/ Dextrose 100 ml @ 25 mls/hr 1X ONCE IV Last administered on 02/08/18at 22:03; Start 02/08/18 at 22:00; Stop 02/09/18 at 01:59; Status DC Aspirin (Radha Aspirin) 325 mg DAILY PO ; Start 02/09/18 at 09:00; Stop at 10:16; Status DC Atorvastatin Calcium (Lipitor) 10 mg HS PO ; Start 02/09/18 at 21:00; Stop at 21:00; Status DC Clonidine HCl (Catapres) 0.1 mg QHS PO Last administered on 02/08/18at 22:05; Start 02/08/18 at 22:00; Stop 02/09/18 at 10:16; Status DC Docusate Sodium (Colace) 100 mg BID PO ; Start 02/09/18 at 09:00; Stop at 10:16; Status DC Gabapentin (Neurontin) 300 mg TID PO Last administered on 02/08/18at 22:08; Start 02/08/18 at 22:20; Stop 02/09/18 at 10:16; Status DC Labetalol HCl (Normodyne Iv Push) 10 mg PRN Q2HR PRN IVP HYPERTENSION, SEE COMMENTS Last administered on 02/12/18at 15:12; Start 02/08/18 at 21:30; Stop 02/12/18 at 16:22; Status DC Lorazepam (Ativan) 1 mg PRN Q4HRS PRN IV ANXIETY / AGITATION Last administered on 02/09/18at 01:49; Start 02/08/18 at 21:30 Morphine Sulfate (Morphine Sulfate) 4 mg PRN Q4HRS PRN IV PAIN Last administered on 02/09/18at 19:45; Start 02/08/18 at 21:30 Acetaminophen (Tylenol Supp) 325 mg PRN Q6HRS PRN ID MILD PAIN / TEMP Last administered on 02/09/18at 09:30; Start 02/09/18 at 06:45 Ipratropium Dawson (Atrovent) 0.5 mg RTQID NEB Last administered on at 12:28; Start 02/09/18 at 08:00 Budesonide (Pulmicort) 0.5 mg RTBID NEB Last administered on 02/13/18at 08:17; Start 02/09/18 at 08:00 Famotidine (Pepcid Vial) 20 mg QHS IVP Last administered on 02/12/18at 21:56; Start 02/09/18 at 21:00 Acetaminophen (Tylenol) 500 mg PRN Q6HRS PRN PO FEVER/KUO Last administered on 02/11/18at 23:45; Start 02/09/18 at 09:00 Ondansetron HCl (Zofran) 4 mg PRN Q6HRS PRN IV NAUSEA/VOMITING; Start at 09:00 Ondansetron HCl (Zofran Odt) 4 mg PRN Q6HRS PRN PO NAUSEA/VOMITING; Start at 09:00 Acetaminophen/ Hydrocodone Bitart (Lortab 10/325) 1 tab PRN Q4HRS PRN PO MODERATE PAIN; Start 02/09/18 at 09:00 Magnesium Hydroxide (Milk Of Magnesia) 400 mg DAILY PO Last administered on at 08:18; Start 02/09/18 at 09:00 Oxycodone HCl (OxyCONTIN) 10 mg BID PO ; Start 02/09/18 at 09:00; Stop at 10:16; Status DC Oxycodone/ Acetaminophen (Percocet 5/325) 1 tab BID PO ; Start 02/09/18 at 09: 00; Stop 02/09/18 at 10:16; Status DC Tramadol HCl (Ultram) 50 mg PRN DAILY PRN PO MILD PAIN; Start 02/09/18 at 09: 00 Non-Formulary Medication (Acetaminophen ) 1 tab BID PO ; Start 02/09/18 at 09: 00; Stop 02/09/18 at 09:12; Status DC Non-Formulary Medication (Albuterol Sulfate (Albuterol Sulfate Neb Soln)) 1 vial QID NEB ; Start 02/09/18 at 09:00; Stop 02/09/18 at 09:22; Status DC Citalopram Hydrobromide (CeleXA) 40 mg QHS PO ; Start 02/09/18 at 21:00; Stop 02/09/18 at 21:00; Status DC Hydrochlorothiazide (Microzide) 12.5 mg QHS PO ; Start 02/09/18 at 21:00; Stop 02/09/18 at 21:00; Status DC Non-Formulary Medication (Magnesium Oxide ) 1 tab DAILY PO ; Start 02/09/18 at 09:00; Stop 02/09/18 at 09:14; Status DC Non-Formulary Medication (Multivitamin (Multivitamins)) 1 tab DAILY PO ; Start 02/09/18 at 09:00; Stop 02/09/18 at 09:14; Status DC Nicotine (Nicoderm Cq 14mg) 1 patch DAILY TD Last administered on 02/13/18at 10 :10; Start 02/09/18 at 10:00 Ondansetron HCl (Zofran Odt) 4 mg Q6HRS PO Last administered on 02/13/18at 05: 33; Start 02/09/18 at 12:00 Non-Formulary Medication (Polyethylene Glycol 3350 (Miralax)) 1 packet DAILY PO ; Start 02/09/18 at 09:00; Stop 02/09/18 at 09:17; Status DC Quetiapine Fumarate (SEROquel) 25 mg QHS PO ; Start 02/09/18 at 21:00; Stop at 21:00; Status DC Labetalol HCl (Normodyne Iv Push) 10 mg PRN Q2HR PRN IVP HYPERTENSION, SEE COMMENTS; Start 02/09/18 at 09:00; Stop 02/09/18 at 09:06; Status DC Acetaminophen (Tylenol) 500 mg BID PO ; Start 02/09/18 at 10:00; Stop at 10:16; Status DC Magnesium Oxide (Magnesium Oxide) 400 mg DAILY PO Last administered on at 08:18; Start 02/09/18 at 10:00 Multivitamins (Thera M Plus) 1 tab DAILY PO ; Start 02/09/18 at 10:00; Stop at 10:16; Status DC Polyethylene Glycol (miraLAX PACKET) 17 gm DAILY PO ; Start 02/09/18 at 10:00; Stop 02/09/18 at 10:16; Status DC Albuterol Sulfate (Ventolin Neb Soln) 2.5 mg RTQID NEB Last administered on at 16:26; Start 02/09/18 at 12:00 Furosemide (Lasix) 60 mg 1X ONCE IVP Last administered on 02/09/18at 20:16; Start 02/09/18 at 20:00; Stop 02/09/18 at 20:01; Status DC Rocuronium Dawson (Zemuron) 50 mg STK-MED ONCE .ROUTE ; Start 02/09/18 at 20: 23; Stop 02/09/18 at 20:24; Status DC Fentanyl Citrate 30 ml @ 0 mls/hr CONT PRN IV SEE PROTOCOL Last administered on 02/13/18at 07:37; Start 02/09/18 at 20:30 Propofol 100 ml @ 0 mls/hr CONT PRN IV SEE PROTOCOL Last administered on at 22:08; Start 02/09/18 at 20:30 Midazolam HCl 100 ml @ 5 mls/hr CONT PRN IV SEE I/O RECORD Last administered on 02/12/18at 03:38; Start 02/09/18 at 22:00 Norepinephrine Bitartrate 250 ml @ As Directed STK-MED ONCE IV ; Start at 02:33; Stop 02/10/18 at 02:35; Status DC Norepinephrine Bitartrate 250 ml @ 1.875 mls/ hr CONT PRN IV SEE I/O RECORD Last administered on 02/11/18at 05:45; Start 02/10/18 at 02:45 Methylprednisolone Sodium Succinate (SOLU-Medrol 40MG VIAL) 40 mg Q12HR IV Last administered on 02/13/18at 08:18; Start 02/10/18 at 09:00 Piperacillin Sod/ Tazobactam Sod 2.25 gm/Sodium Chloride 50 ml @ 100 mls/hr Q6HRS IV Last administered on 02/12/18at 05:47; Start 02/11/18 at 12:00; Stop 02/12/18 at 07:24; Status DC Propofol (Diprivan) 200 mg STK-MED ONCE IV ; Start 02/09/18 at 07:00; Stop at 07:43; Status DC Succinylcholine Chloride (Anectine) 200 mg STK-MED ONCE .ROUTE ; Start at 07:00; Stop 02/11/18 at 07:43; Status DC Phenylephrine HCl (PHENYLEPHRINE in 0.9% NACL PF) 1 mg STK-MED ONCE IV ; Start 02/09/18 at 07:00; Stop 02/11/18 at 07:43; Status DC Ephedrine Sulfate (ePHEDrine PF IN SALINE SYRINGE) 50 mg STK-MED ONCE IV ; Start 02/09/18 at 07:00; Stop 02/11/18 at 07:43; Status DC Rocuronium Dawson (Zemuron) 50 mg STK-MED ONCE .ROUTE ; Start 02/09/18 at 21: 00; Stop 02/11/18 at 08:22; Status DC Linezolid/Dextrose 300 ml @ 300 mls/hr Q12HR IV Last administered on at 08:19; Start 02/12/18 at 09:00 Micafungin Sodium 100 mg/Dextrose 100 ml @ 100 mls/hr Q24H IV Last administered on 02/13/18at 10:10; Start 02/12/18 at 10:00 Cefepime HCl (Maxipime) 1 gm Q12HR IVP Last administered on 02/13/18at 08:19; Start 02/12/18 at 09:00; Stop 02/13/18 at 10:56; Status DC Atorvastatin Calcium (Lipitor) 10 mg QHS PO Last administered on 02/12/18at 21: 55; Start 02/12/18 at 21:00 Labetalol HCl (Normodyne Iv Push) 20 mg PRN Q2HR PRN IVP HYPERTENSION, SEE COMMENTS Last administered on 02/13/18at 05:34; Start 02/12/18 at 16:15 Aspirin (Children'S Aspirin) 81 mg DAILYWBKFT PO Last administered on at 08:18; Start 02/12/18 at 16:15 Metoprolol Tartrate (Lopressor) 25 mg BID PO Last administered on 02/13/18at 10 :45; Start 02/13/18 at 11:00 Cefepime HCl (Maxipime) 1 gm QHS IVP ; Start 02/13/18 at 21:00 Active Scripts Active Percocet 5-325 Mg Tablet (Oxycodone/Acetaminophen) 1 Each Tablet 1 Tab PO BID 3 Days Reported Zofran (Ondansetron Hcl) 4 Mg Tablet 1 Tab PO Q6HRS Milk Of Magnesia (Magnesium Hydroxide) 400 Mg/5 Ml Oral.susp 400 Mg PO Acetaminophen 500 Mg Tablet 1 Tab PO BID Clonidine Hcl 0.1 Mg Tablet 1 Tab PO QHS Tramadol Hcl 50 Mg Tablet 50 Mg PO DAILY PRN Hydralazine Hcl 20 Mg/1 Ml Vial 20 Mg IJ Gabapentin (Gabapentin) 300 Mg Capsule 300 Mg PO TID Acidophilus (Lactobacillus Acidophilus) 1 Each Capsule 1 Each PO Atorvastatin Calcium 10 Mg Tablet 1 Tab PO DAILY Vitamin C (Ascorbic Acid) 500 Mg Tablet.er 500 Mg PO Aspirin 325 Mg Tablet 1 Tab PO DAILY Colace (Docusate Sodium) 100 Mg Capsule 1 Cap PO BID Magnesium Oxide 400 Mg Tablet 1 Tab PO DAILY Multivitamins (Multivitamin) 1 Each Tablet 1 Tab PO DAILY NICODERM CQ 14mg (Nicotine) 1 Each Patch.td24 1 Patch TP DAILY Miralax (Polyethylene Glycol 3350) 17 Gm Powd.pack 1 Packet PO DAILY Albuterol Sulfate Neb Soln (Albuterol Sulfate) 0.63 Mg/3 Ml Vial.neb 1 Vial NEB QID Prednisone 20 Mg Tablet 1 Tab PO DAILY Seroquel (Quetiapine Fumarate) 25 Mg Tablet 1 Tab PO QHS Hydrochlorothiazide Tablet (Hydrochlorothiazide) 12.5 Mg Tablet 1 Tab PO QHS Lexapro (Escitalopram Oxalate) 20 Mg Tablet 1 Tab PO QHS Hydrocodone-Apap 10-325 (Hydrocodone Bit/Acetaminophen) 1 Each Tablet 1 Tab PO PRN Q4HRS Oxycontin (Oxycodone HCl) 10 Mg Tab.er.12h 10 Mg PO BID Vitals/I & O Vital Sign - Last 24 Hours 02/12/18 02/12/18 02/12/18 02/12/18 14:00 15:00 15:12 16:00 Temp 98.9 98.6 98.9 98.6 Pulse 116 120 116 90 Resp 20 39 19 B/P (MAP) 170/96 (120) 184/100 (128) 184/100 153/88 (109) Pulse Ox 94 95 97 O2 Delivery Ventilator Ventilator Ventilator 02/12/18 02/12/18 02/12/18 02/12/18 16:00 16:13 17:00 18:00 Pulse 102 Resp 25 B/P (MAP) 159/78 (105) Pulse Ox 96 96 94 O2 Delivery Mechanical Ventilator Ventilator Ventilator Ventilator 02/12/18 02/12/18 02/12/18 02/12/18 18:00 19:00 19:57 20:00 Temp 98.8 98.8 Pulse 105 107 112 Resp 21 19 22 B/P (MAP) 159/84 (109) 162/83 (109) 174/93 (120) Pulse Ox 96 95 94 97 O2 Delivery Ventilator Ventilator Ventilator Ventilator 02/12/18 02/12/18 02/12/18 02/12/18 20:00 21:00 21:55 22:00 Pulse 114 112 87 Resp 20 20 B/P (MAP) 174/93 (120) 174/93 169/92 (117) Pulse Ox 96 96 O2 Delivery Mechanical Ventilator Ventilator Ventilator 1202/12/18 02/12/18 02/12/18 22:25 23:00 23:50 23:59 Pulse 92 Resp 21 B/P (MAP) 168/88 (114) Pulse Ox 96 96 96 O2 Delivery Ventilator Ventilator Ventilator Mechanical Ventilator 02/13/18 02/13/18 02/13/18 02/13/18 00:00 01:00 02:00 02:30 Temp 98.7 98.7 Pulse 97 107 109 Resp 19 21 23 B/P (MAP) 169/93 (118) 140/80 (100) 146/80 (102) Pulse Ox 95 95 98 95 O2 Delivery Ventilator Ventilator Ventilator Ventilator 02/13/18 02/13/18 02/13/18 02/13/18 03:00 04:00 04:00 05:00 Temp 98.6 98.6 Pulse 103 114 114 Resp 20 25 21 B/P (MAP) 146/82 (103) 154/82 (106) 171/96 (121) Pulse Ox 94 95 95 O2 Delivery Ventilator Ventilator Mechanical Ventilator Ventilator 02/13/18 02/13/18 02/13/18 02/13/18 05:22 05:34 06:00 07:00 Pulse 118 93 98 Resp 20 23 B/P (MAP) 171/96 130/73 (92) 159/87 (111) Pulse Ox 96 94 96 O2 Delivery Ventilator Ventilator Ventilator 02/13/18 02/13/18 02/13/18 02/13/18 07:37 08:00 08:00 08:15 Temp 98.9 98.9 Pulse 110 Resp 24 25 B/P (MAP) 176/93 (120) Pulse Ox 96 96 96 O2 Delivery Ventilator Mechanical Ventilator Ventilator Ventilator 02/13/18 02/13/18 02/13/18 02/13/18 08:20 09:00 10:00 10:15 Pulse 116 114 Resp 20 26 B/P (MAP) 177/92 (120) 166/97 (120) Pulse Ox 96 96 95 95 O2 Delivery Ventilator Ventilator Ventilator Ventilator 02/13/18 02/13/18 02/13/18 10:45 11:00 12:29 Pulse 114 100 Resp 24 B/P (MAP) 166/97 153/84 (107) Pulse Ox 96 O2 Delivery Ventilator Ventilator Intake and Output 02/12/18 02/12/18 02/13/18 15:00 23:00 07:00 Intake Total 1093.89 ml 845.28 ml 797 ml Output Total 122 ml 200 ml 380 ml Balance 971.89 ml 645.28 ml 417 ml Nutrition Consultation Dietary Evaluation: Recommendations by RD: Increase Calorie Intake Comments: REC TF per following: Jevity 1.5@goal rate 45 ml/hr w/25 ml water flushes q8 hrs or flushes per MD Expected Outcomes/Goals: TF for nutrition needs while pt remains intubated Interpretation of weight loss: >10% in 6 months Malnutrition Findings: Body Fat Depletion (Non Severe: Mild Depletion Weight Status: Appropriate CONNORNIAL K III DO Feb 13, 2018 13:34
[2018-02-13] MEDS ORDERED: MIDAZOLAM HCL/PF 5 MG/5 ML VIAL. ONE ×3 (14:04→15:30)
[2018-02-13] MEDS: PROPOFOL 100 ML IV PRN (14:09)
[2018-02-13] MEDS ORDERED: MIDAZOLAM HCL/PF 5 MG/5 ML VIAL. IV ONE (14:15)
[2018-02-13 14:38] LABS: BASE EXCESS ABG -6 mmol/L (-3-3); HCO3 ABG 19 mmol/L (21-28); PCO2 ABG 36 mmHg (35-46); PO2 ABG 74 mmHg (65-108); SAT O2 ABG 92 % (92-99)
[2018-02-13 14:42] LABS: FIO2 ABG 40
[2018-02-13 14:43] LABS: CORRECTED PCO2 ABG 40 mmHg; CORRECTED PH ABG 7.31; CORRECTED PO2 ABG 85 mmHg
[2018-02-13] MEDS ORDERED: LIDOCAINE WITH 8.4% SOD BICARB 3 ML DISP.SYRIN. INJ ONE (14:45)
--- NOTE | 2018-02-13 14:45 | PDOC2 ---
GI CONSULT Reason For Consult: GI Bleed HPI: HPI: 67 y/o female admitted 02/08/18 w/ resp failure and NSTEMI. Intubated in ICU on Heparin and ASA, also issues w/ renal failure and plans for temporary dialysis cath placement. Has OG tube for feeds - RN reports high residuals yesterday but better overnight, then this afternoon reports 30cc "wine-colored" residual. Brown liquid stool overnight. When I saw in ICU was febrile and tachycardic (HR 140s), sedation given. EGD in 08/[address] Cao for anemia (on Warfarin and ASA) showed bleeding lesion in hiatal hernia (epi, clip), scattered esophageal erosions and ulcers ( stain +HSV), distal esophagitis, normal duodenum. Previous colonoscopy w/ microscopic colitis. H/o C Diff s/p fecal transplant. No GB, liver, or pancreas history. PMH: PMH: per HPI plus A Fib, CHF, PVD, HTN, ?endocarditis, COPD, CVA, CKD, anxiety, depression, fibromyalgia rotator cuff repair, hysterectomy, appendectomy, aorto bilateral femoral bypass , bilateral carotid endarterectomies, bilateral renal endarterectomies, right ankle debridement FH: Family History: Cancer (esophageal/stomach, ovarian, colon, breast), DM Social History: Smoke: Quit ALCOHOL: social ROS: Unable to obtain. Vitals: Vitals: Vital Signs Date Time Temp Pulse Resp B/P (MAP) Pulse Ox O2 Delivery O2 Flow Rate FiO2 02/13/18 12:29 96 Ventilator 02/13/18 11:00 100 24 153/84 (107) 02/13/18 08:00 98.9 98.9 Labs: Labs: Laboratory Tests Test 02/13/18 05:45 02/13/18 09:30 02/13/18 13:00 White Blood Count 10.2 x10^3/uL (4.0-11.0) Red Blood Count 3.80 x10^6/uL (3.50-5.40) Hemoglobin 11.7 g/dL (12.0-15.5) Hematocrit 34.6 % (36.0-47.0) Mean Corpuscular Volume 91 fL (79-100) Mean Corpuscular Hemoglobin 31 pg (25-35) Mean Corpuscular Hemoglobin Concent 34 g/dL (31-37) Red Cell Distribution Width 17.2 % (11.5-14.5) Platelet Count 172 x10^3/uL (140-400) Neutrophils (%) (Auto) 88 % (31-73) Lymphocytes (%) (Auto) 7 % (24-48) Monocytes (%) (Auto) 5 % (0-9) Eosinophils (%) (Auto) 0 % (0-3) Basophils (%) (Auto) 0 % (0-3) Neutrophils # (Auto) 9.0 x10^3uL (1.8-7.7) Lymphocytes # (Auto) 0.7 x10^3/uL (1.0-4.8) Monocytes # (Auto) 0.5 x10^3/uL (0.0-1.1) Eosinophils # (Auto) 0.0 x10^3/uL (0.0-0.7) Basophils # (Auto) 0.0 x10^3/uL (0.0-0.2) Segmented Neutrophils % 65 % (35-66) Band Neutrophils % 26 % (0-9) Lymphocytes % 5 % (24-48) Monocytes % 4 % (0-10) Nucleated Red Blood Cells 1 Platelet Estimate Adequate (ADEQUATE) Anisocytosis Slight Spherocytes Occ Ovalocytes Few [place] Cells Few Heparin Anti-Xa Act, Unfractionated 0.23 IU/mL (0.30-0.70) 0.41 IU/mL (0.30-0.70) Sodium Level 146 mmol/L (136-145) Potassium Level 3.6 mmol/L (3.5-5.1) Chloride Level 108 mmol/L (98-107) Carbon Dioxide Level 20 mmol/L (21-32) Anion Gap 18 (6-14) Blood Urea Nitrogen 124 mg/dL (7-20) Creatinine 5.0 mg/dL (0.6-1.0) Estimated GFR (Cockcroft-Gault) 8.7 BUN/Creatinine Ratio 25 (6-20) Glucose Level 187 mg/dL (70-99) Calcium Level 7.4 mg/dL (8.5-10.1) Total Bilirubin 0.3 mg/dL (0.2-1.0) Aspartate Amino Transf (AST/SGOT) 87 U/L (15-37) Alanine Aminotransferase (ALT/SGPT) 70 U/L (14-59) Alkaline Phosphatase 62 U/L (46-116) Total Protein 5.8 g/dL (6.4-8.2) Albumin 2.0 g/dL (3.4-5.0) Albumin/Globulin Ratio 0.5 (1.0-1.7) O2 Saturation 93 % (92-99) Arterial Blood pH 7.47 (7.35-7.45) Arterial Blood pCO2 at Patient Temp 26 mmHg (35-46) Arterial Blood pO2 at Patient Temp 69 mmHg (65-108) Arterial Blood HCO3 18 mmol/L (21-28) Arterial Blood Base Excess -4 mmol/L (-3-3) FiO2 40 BLOOD CULTURE Preliminary NO GROWTH AFTER 4 DAYS BLOOD CULTURE Preliminary NO GROWTH AFTER 1 DAY SPUTUM CULTURE GRAM STAIN WHITE BLOOD CELLS Final Few GRAM STAIN EPITHELIAL CELLS Final Few GRAM STAIN RESULT 1 Final Comment Few gram positive cocci SPUTUM CULTURE-LC Final Final report SPUTUM CULT RES 1 Final Yeast isolated. Scant growth Allergies: Coded Allergies: NSAIDS (Non-Steroidal Anti-Inflamma (Verified Adverse Reaction, Mild, Diarrhea, 09/20/17) codeine (Verified Adverse Reaction, Mild, Nausea and Vomiting, 09/20/17) metronidazole (Verified Adverse Reaction, Mild, Nausea and Vomiting, ) Medications: Current Medications Medications (Trade) Dose Ordered Sig/Sravan Route PRN Reason Start Time Stop Time Status Last Admin Dose Admin Atorvastatin Calcium (Lipitor) 10 mg QHS PO 02/12/18 21:00 02/12/18 21:55 Labetalol HCl (Normodyne Iv Push) 20 mg PRN Q2HR PRN IVP HYPERTENSION, SEE COMMENTS 02/12/18 16:15 02/13/18 05:34 Aspirin (Children'S Aspirin) 81 mg DAILYWBKFT PO 02/12/18 16:15 02/13/18 08:18 Metoprolol Tartrate (Lopressor) 25 mg BID PO 02/13/18 11:00 02/13/18 10:45 Midazolam HCl (Versed) 5 mg 1X ONCE IV 02/13/18 14:15 02/13/18 14:16 02/13/18 14:10 Imaging: Imaging: Echo 02/10 <Conclusion> Limited and technically difficult echocardiogram for LV systolic function. The left ventricle is normal size. The left ventricular systolic function is normal and the ejection fraction is within normal range. Left ventricular ejection fraction estimated at 50%. Possible mild hypokinesis in the distal septal wall. There is borderline to mild concentric left ventricular hypertrophy. CXR 02/12 Impression: 1. There is persistent similar hazy left base airspace opacity, also interstitial opacity questionably slightly decreased. There is probable small pleural effusion as seen previously. There are support catheters and tubes as stated. Renal US 02/12 Impression: No sonographic abnormality of either kidney. CXR 02/13 (pending) PE: GEN: intubated HEENT: atraumatic, OGT LUNGS: vent HEART: tachycardic/irregular ABD: BS+, soft EXTREMITY: SCDs SKIN: diaphoretic NEURO/PSYCH: was off sedation A/P: A/P: Resp failure, NSTEMI, ANGELICA, fever Abnormal tube feed residual H/o GI bleeding - lesion in hiatal hernia requiring epi/clip GERD, h/o esophageal ulcer (+HSV) CRC screen - has had previous colonoscopy H/o C Diff s/p fecal transplant -- Hgb stable. Reviewed w/ Dr. Cao - change to IV PPI BID, monitor labs and for bleeding. CONNOR MCNAIR Feb 13, 2018 14:45
--- NOTE | 2018-02-13 15:10 | PDOC ---
SUBJECTIVE ROS Intubated IV Bolus yesterday with some improvement inUOP BP high OBJECTIVE Vital Signs Vital Signs Date Time Temp Pulse Resp B/P (MAP) Pulse Ox O2 Delivery O2 Flow Rate FiO2 02/13/18 12:29 96 Ventilator 02/13/18 11:00 100 24 153/84 (107) 02/13/18 08:00 98.9 98.9 I & 0 Intake and Output 02/13/18 07:00 Intake Total 2736.17 ml Output Total 702 ml Balance 2034.17 ml IV Total 927.17 ml Tube Feeding 1659 ml Other 150 ml Output Urine Total 702 ml Gastric Drainage Total 0 ml # Bowel Movements 1 PHYSICAL EXAM Physical Exam GENERAL: Intubated and alert some HEENT: ETT, OGT NECK: supple LUNGS: Clear to auscultation. HEART: S1, S2. ABDOMEN: soft. Bowel sounds present. GENITOURINARY: Indwelling Forman in place. EXTREMITIES: Trace edema in lower extremities bilaterally. SKIN: Warm without rash. NEUROLOGIC: Alert some DIAGNOSIS/ASSESSMENT Assessment & Plan Acute renal failure --Initially Non Oliguric, sepsis / cardiorenal- likely acute tubular necrosis Since yesterday Decreased UOP ,Hypotensive , iNCREASE IN uop WITH iv BOLUS Renal function worsening, HD today for clearance Lytes and acid base stable,renal US unremarkable CKD stage 3- likely based on previous labs in the system Hypokalemia- replaced Hypernatremia- Mild Increase free water flushes with Tube feed Non-ST elevation myocardial infarction. Troponin up to 44.56 now. echo pending Acute diastolic heart failure. Paroxysmal atrial fibrillation. Discussed with RN at bedside, no family present COMMENT/RELEVANT DATA Meds Current Medications Medications (Trade) Dose Ordered Sig/Sravan Start Time Stop Time Status Last Admin Dose Admin Acetaminophen (Tylenol Supp) 325 mg PRN Q6HRS PRN 02/09/18 06:45 02/09/18 09:30 325 MG Acetaminophen (Tylenol) 500 mg BID 02/09/18 10:00 02/09/18 10:16 DC Acetaminophen/ Hydrocodone Bitart (Lortab 10/325) 1 tab PRN Q4HRS PRN 02/09/18 09:00 Albuterol Sulfate (Ventolin Neb Soln) 2.5 mg RTQID 02/09/18 12:00 02/10/18 16:26 2.5 MG Albuterol/ Ipratropium (Duoneb) 3 ml 1X ONCE 02/08/18 16:00 02/08/18 16:01 DC 02/08/18 17:14 3 ML Aspirin (Radha Aspirin) 325 mg DAILY 02/09/18 09:00 02/09/18 10:16 DC Aspirin (Children'S Aspirin) 81 mg DAILYWBKFT 02/12/18 16:15 02/13/18 08:18 81 MG Atorvastatin Calcium (Lipitor) 10 mg QHS 02/12/18 21:00 02/12/18 21:55 10 MG Budesonide (Pulmicort) 0.5 mg RTBID 02/09/18 08:00 02/13/18 08:17 0.5 MG Cefepime HCl (Maxipime) 1 gm QHS 02/13/18 21:00 Citalopram Hydrobromide (CeleXA) 40 mg QHS 02/09/18 21:00 02/09/18 21:00 DC Clonidine HCl (Catapres) 0.1 mg QHS 02/08/18 22:00 02/09/18 10:16 DC 02/08/18 22:05 0.1 MG Docusate Sodium (Colace) 100 mg BID 02/09/18 09:00 02/09/18 10:16 DC Ephedrine Sulfate (ePHEDrine PF IN SALINE SYRINGE) 50 mg STK-MED ONCE 02/09/18 07:00 02/11/18 07:43 DC Famotidine (Pepcid Vial) 20 mg QHS 02/09/18 21:00 02/13/18 14:47 DC 02/12/18 21:56 20 MG Fentanyl Citrate 30 ml @ 0 mls/hr CONT PRN 02/09/18 20:30 02/13/18 07:37 0 MLS/HR Furosemide (Lasix) 60 mg 1X ONCE 02/09/18 20:00 02/09/18 20:01 DC 02/09/18 20:16 60 MG Gabapentin (Neurontin) 300 mg TID 02/08/18 22:20 02/09/18 10:16 DC 02/08/18 22:08 300 MG Heparin Sodium (Porcine) (Heparin Sodium) 2,500 unit 1X ONCE 02/13/18 15:00 02/13/18 15:03 DC Heparin Sodium/ Dextrose 500 ml @ 0 mls/hr CONT PRN 02/08/18 17:30 02/13/18 08:22 DC 02/12/18 19:46 5.7 MLS/HR Hydrochlorothiazide (Microzide) 12.5 mg QHS 02/09/18 21:00 02/09/18 21:00 DC Info (Anti-Coagulation Monitoring By Pharmacy) 1 each PRN DAILY PRN 02/08/18 17:30 02/13/18 09:17 DC 02/11/18 12:25 1 EACH Ipratropium Tropic (Atrovent) 0.5 mg RTQID 02/09/18 08:00 02/13/18 12:28 0.5 MG Labetalol HCl (Normodyne Iv Push) 20 mg PRN Q2HR PRN 02/12/18 16:15 02/13/18 05:34 20 MG Lidocaine/Sodium Bicarbonate (Buffered Lidocaine 1%) 4 ml 1X ONCE 02/13/18 14:45 02/13/18 14:52 DC 02/13/18 14:57 4 ML Linezolid/Dextrose 300 ml @ 300 mls/hr Q12HR 02/12/18 09:00 02/13/18 08:19 300 MLS/HR Lorazepam (Ativan) 1 mg PRN Q4HRS PRN 02/08/18 21:30 02/09/18 01:49 1 MG Magnesium Hydroxide (Milk Of Magnesia) 400 mg DAILY 02/09/18 09:00 02/13/18 08:18 400 MG Magnesium Oxide (Magnesium Oxide) 400 mg DAILY 02/09/18 10:00 02/13/18 08:18 400 MG Magnesium Sulfate/ Dextrose 100 ml @ 25 mls/hr 1X ONCE 02/08/18 22:00 02/09/18 01:59 DC 02/08/18 22:03 25 MLS/HR Methylprednisolone Sodium Succinate (SOLU-Medrol 40MG VIAL) 40 mg Q12HR 02/10/18 09:00 02/13/18 08:18 40 MG Metoprolol Tartrate (Lopressor) 25 mg BID 02/13/18 11:00 02/13/18 10:45 25 MG Micafungin Sodium 100 mg/Dextrose 100 ml @ 100 mls/hr Q24H 02/12/18 10:00 02/13/18 10:10 100 MLS/HR Midazolam HCl (Versed) 5 mg 1X ONCE 02/13/18 14:15 02/13/18 14:16 DC 02/13/18 14:10 5 MG Morphine Sulfate (Morphine Sulfate) 4 mg PRN Q4HRS PRN 02/08/18 21:30 02/09/18 19:45 4 MG Multivitamins (Thera M Plus) 1 tab DAILY 02/09/18 10:00 02/09/18 10:16 DC Nicotine (Nicoderm Cq 14mg) 1 patch DAILY 02/09/18 10:00 02/13/18 10:10 1 PATCH Non-Formulary Medication (Acetaminophen ) 1 tab BID 02/09/18 09:00 02/09/18 09:12 DC Non-Formulary Medication (Albuterol Sulfate (Albuterol Sulfate Neb Soln)) 1 vial QID 02/09/18 09:00 02/09/18 09:22 DC Non-Formulary Medication (Magnesium Oxide ) 1 tab DAILY 02/09/18 09:00 02/09/18 09:14 DC Non-Formulary Medication (Multivitamin (Multivitamins)) 1 tab DAILY 02/09/18 09:00 02/09/18 09:14 DC Non-Formulary Medication (Polyethylene Glycol 3350 (Miralax)) 1 packet DAILY 02/09/18 09:00 02/09/18 09:17 DC Norepinephrine Bitartrate 250 ml @ 1.875 mls/ hr CONT PRN 02/10/18 02:45 02/11/18 05:45 11.25 MLS/HR Ondansetron HCl (Zofran Odt) 4 mg Q6HRS 02/09/18 12:00 02/13/18 05:33 4 MG Ondansetron HCl (Zofran) 4 mg PRN Q6HRS PRN 02/09/18 09:00 Oxycodone HCl (OxyCONTIN) 10 mg BID 02/09/18 09:00 02/09/18 10:16 DC Oxycodone/ Acetaminophen (Percocet 5/325) 1 tab BID 02/09/18 09:00 02/09/18 10:16 DC Pantoprazole Sodium (PROTONIX VIAL for IV PUSH) 40 mg BIDAC 02/13/18 16:30 Phenylephrine HCl (PHENYLEPHRINE in 0.9% NACL PF) 1 mg STK-MED ONCE 02/09/18 07:00 02/11/18 07:43 DC Piperacillin Sod/ Tazobactam Sod (Zosyn Per Pharmacy) 1 each PRN DAILY PRN 02/08/18 16:15 02/12/18 07:24 DC Piperacillin Sod/ Tazobactam Sod 2.25 gm/Sodium Chloride 50 ml @ 100 mls/hr Q6HRS 02/11/18 12:00 02/12/18 07:24 DC 02/12/18 05:47 100 MLS/HR Piperacillin Sod/ Tazobactam Sod 3.375 gm/Sodium Chloride 50 ml @ 100 mls/hr Q6HRS 02/09/18 00:00 02/11/18 07:14 DC 02/11/18 05:37 100 MLS/HR Polyethylene Glycol (miraLAX PACKET) 17 gm DAILY 02/09/18 10:00 02/09/18 10:16 DC Propofol (Diprivan) 200 mg STK-MED ONCE 02/09/18 07:00 02/11/18 07:43 DC Quetiapine Fumarate (SEROquel) 25 mg QHS 02/09/18 21:00 02/09/18 21:00 DC Rocuronium Tropic (Zemuron) 50 mg STK-MED ONCE 02/09/18 21:00 02/11/18 08:22 DC Succinylcholine Chloride (Anectine) 200 mg STK-MED ONCE 02/09/18 07:00 02/11/18 07:43 DC Tramadol HCl (Ultram) 50 mg PRN DAILY PRN 02/09/18 09:00 Vancomycin HCl (Vanco Per Pharmacy) 1 each PRN DAILY PRN 02/08/18 16:15 02/10/18 09:07 DC 02/09/18 08:59 1 EACH Vancomycin HCl (Vancomycin Trough Level) 1 each 1X ONCE 02/10/18 16:00 02/10/18 16:00 DC Vancomycin HCl 1.75 gm/Sodium Chloride 500 ml @ 250 mls/hr 1X ONCE 02/08/18 17:00 02/08/18 18:59 DC 02/08/18 16:36 250 MLS/HR Vancomycin HCl 1 gm/Sodium Chloride 250 ml @ 250 mls/hr Q24H 02/09/18 16:30 02/10/18 09:07 DC 02/09/18 16:30 250 MLS/HR Lab Laboratory Tests Test 02/13/18 05:45 02/13/18 09:30 02/13/18 13:00 02/13/18 14:30 White Blood Count 10.2 x10^3/uL (4.0-11.0) Red Blood Count 3.80 x10^6/uL (3.50-5.40) Hemoglobin 11.7 g/dL (12.0-15.5) Hematocrit 34.6 % (36.0-47.0) Mean Corpuscular Volume 91 fL (79-100) Mean Corpuscular Hemoglobin 31 pg (25-35) Mean Corpuscular Hemoglobin Concent 34 g/dL (31-37) Red Cell Distribution Width 17.2 % (11.5-14.5) Platelet Count 172 x10^3/uL (140-400) Neutrophils (%) (Auto) 88 % (31-73) Lymphocytes (%) (Auto) 7 % (24-48) Monocytes (%) (Auto) 5 % (0-9) Eosinophils (%) (Auto) 0 % (0-3) Basophils (%) (Auto) 0 % (0-3) Neutrophils # (Auto) 9.0 x10^3uL (1.8-7.7) Lymphocytes # (Auto) 0.7 x10^3/uL (1.0-4.8) Monocytes # (Auto) 0.5 x10^3/uL (0.0-1.1) Eosinophils # (Auto) 0.0 x10^3/uL (0.0-0.7) Basophils # (Auto) 0.0 x10^3/uL (0.0-0.2) Segmented Neutrophils % 65 % (35-66) Band Neutrophils % 26 % (0-9) Lymphocytes % 5 % (24-48) Monocytes % 4 % (0-10) Nucleated Red Blood Cells 1 Platelet Estimate Adequate (ADEQUATE) Anisocytosis Slight Spherocytes Occ Ovalocytes Few [place] Cells Few Heparin Anti-Xa Act, Unfractionated 0.23 IU/mL (0.30-0.70) 0.41 IU/mL (0.30-0.70) Sodium Level 146 mmol/L (136-145) Potassium Level 3.6 mmol/L (3.5-5.1) Chloride Level 108 mmol/L (98-107) Carbon Dioxide Level 20 mmol/L (21-32) Anion Gap 18 (6-14) Blood Urea Nitrogen 124 mg/dL (7-20) Creatinine 5.0 mg/dL (0.6-1.0) Estimated GFR (Cockcroft-Gault) 8.7 BUN/Creatinine Ratio 25 (6-20) Glucose Level 187 mg/dL (70-99) Calcium Level 7.4 mg/dL (8.5-10.1) Total Bilirubin 0.3 mg/dL (0.2-1.0) Aspartate Amino Transf (AST/SGOT) 87 U/L (15-37) Alanine Aminotransferase (ALT/SGPT) 70 U/L (14-59) Alkaline Phosphatase 62 U/L (46-116) Total Protein 5.8 g/dL (6.4-8.2) Albumin 2.0 g/dL (3.4-5.0) Albumin/Globulin Ratio 0.5 (1.0-1.7) O2 Saturation 93 % (92-99) 92 % (92-99) Arterial Blood pH 7.47 (7.35-7.45) 7.34 (7.35-7.45) Arterial Blood pCO2 at Patient Temp 26 mmHg (35-46) 36 mmHg (35-46) Arterial Blood pO2 at Patient Temp 69 mmHg (65-108) 74 mmHg (65-108) Arterial Blood HCO3 18 mmol/L (21-28) 19 mmol/L (21-28) Arterial Blood Base Excess -4 mmol/L (-3-3) -6 mmol/L (-3-3) FiO2 40 40 Arterial Blood pH (Temp corrected) 7.31 Arterial Blood pCO2 (Temp correct) 40 mmHg Arterial Blood pO2 (Temp corrected) 85 mmHg Results All relevant outside records, renal labs, imaging studies, telemetry/EKG's were reviewed Renal US- . Right kidney: * 11.7 cm length. * No evidence of calcified stone or hydronephrosis. * No significant renal lesion. Left kidney: * 9.7 cm length. * No evidence of calcified stone or hydronephrosis. * No significant renal lesion. Urinary bladder: Contains a catheter and is nondistended, not evaluated Miscellaneous findings: None Impression: No sonographic abnormality of either kidney. VINH BLACKBURN MD Feb 13, 2018 15:10
--- NOTE | 2018-02-13 15:34 | RAD ---
Procedure: Temporary hemodialysis catheter placement at the bedside. Clinical Indication: 67-year-old requiring central venous access Sedation: Local anesthesia only Antibiotics: None Fluoro Time: Not applicable Contrast: None Sterility: All elements of maximal sterile barrier technique including the use of a cap, mask, sterile gown, sterile gloves, large sterile sheet, appropriate hand hygiene, and 2% chlorhexidine for cutaneous antisepsis (or acceptable alternative antiseptic per current guidelines) were followed for this procedure. Consent: The procedure was explained in its entirety to the patient or the patients designated route service representative by a member of the treatment team, including a discussion of the risks, benefits and commonly accepted alternatives to the procedure, as well as the expected consequences of no therapy whatsoever. Discussion of the risks included, but was not limited to, those that are most frequent and those that are rare but possibly severe or life-threatening, as well as the possibility of unforeseen complications. Technique and Findings: Following informed consent, the patient was prepped and draped in the usual sterile fashion. Ultrasound interrogation of the right neck revealed patency and compressibility of the right internal jugular vein. A 21-gauge micropuncture needle was used to gain access to this vein after 1% Lidocaine was used to achieve local anesthesia. A hardcopy ultrasound image was recorded. The needle was exchanged over a wire for serial dilators followed by a 20cm Schon temporary hemodialysis catheter which was deployed in the expected location of the mid right atrium. The catheter flow rates were assessed manually and found to be excellent. The catheter was then flushed, packed with Heparin, capped, and sutured to the skin. Chest x-ray was then obtained to assess line position. Complications: No immediate Impression: 1. Ultrasound guided placement of a temporary hemodialysis catheter which exhibits excellent manual flow rates as described.
--- NOTE | 2018-02-13 16:19 | RAD ---
CT HEAD WO CONTRAST Indication: Altered mental status. Exposure: One or more of the following individualized dose reduction techniques were utilized for this examination: 1. Automated exposure control 2. Adjustment of the mA and/or kV according to patient size 3. Use of iterative reconstruction technique. Comparison: August 20, 2017 Contrast: None FINDINGS: Posterior fossa is unremarkable. No evidence of acute intracranial hemorrhage or abnormal extra-axial fluid collection. No evidence of mass effect or midline shift. Low-density in the white matter bilaterally, a nonspecific finding, but which is commonly due to chronic small vessel ischemic disease in a patient of this age. Prominence of ventricles and sulci, compatible with involutional change or atrophy. Intracranial arterial calcifications are identified. Visualized orbits are unremarkable. Visualized paranasal sinuses and mastoids are clear. No acute calvarial abnormality. Impression:Chronic findings as detailed above. Negative for acute intracranial hemorrhage or mass effect. Electronically signed by: Ant Berrios MD (02/13/2018 4:15 PM) [facility]
--- NOTE | 2018-02-13 16:30 | RAD ---
Examination: PORTABLE CHEST 1V History: LINE PLACEMENT Comparison/Correlation: 02/12/2018 portable chest x-ray exam Findings: Portable frontal view chest was obtained. Endotracheal tube terminates 5.5 cm from the sohan. Enteric tube is in place overlying the stomach. Right internal jugular dialysis catheter terminates overlying the superior cavoatrial junction. Right internal jugular catheter also is present terminating at this level. Heart size is within normal limits. No pneumothorax. Pulmonary vasculature is slightly congested. No pneumothorax. Left retrocardiac opacification which may represent atelectasis or infiltrate is present. Impression: No pneumothorax. Mild pulmonary vasculature congestion is increased. Left basilar retrocardiac atelectasis or infiltrate is evident. Electronically signed by: Ryan Kemp MD (02/13/2018 4:26 PM) [facility]
[2018-02-13] MEDS: MEROPENEM 500 MG in IV NORMAL SALINE 50ML 50 ML IV SCH (16:48)
[2018-02-13] MEDS: PANTOPRAZOLE IV PUSH 40 MG VIAL. IVP SCH (16:49)
[2018-02-13] MEDS: CLOPIDOGREL BISULFATE 75 MG TABLET PO SCH (16:49)
--- NOTE | 2018-02-13 17:27 | RAD ---
EXAM: AP View of the chest DATE: 02/13/2018 9:00 AM INDICATION: respiratory failure COMPARISON: 02/12/2018, 02/10/2018 FINDINGS: Of note, the left costophrenic angle is not entirely included in the [id number]. ET tube tip terminates approximately 4 cm above the sohan. Right IJ vascular catheter tip projects over the distal SVC. Enteric tube extends beyond the diaphragm tip is not visualized. Cardiomediastinal silhouette is stable. Left lung base parenchymal opacities are also stable. Patchy medial right lung base opacities are also grossly stable. No definite pleural effusion. No pneumothorax. Electronically signed by: Onur Valencia MD (02/13/2018 5:23 PM) [facility]
[2018-02-13] MEDS: MIDAZOLAM 100mg/100ml NS BAG 100 ML IV PRN (17:38)
[2018-02-13] MEDS ORDERED: IV NORMAL SALINE 1000ML BAG 1,000 ML IV PRN ×2 (19:27)
[2018-02-13] MEDS ORDERED: DIALYSIS PATIENT. MC PRN ×2 (19:30)
[2018-02-13] MEDS ORDERED: ALBUMIN HUMAN 25% 200 ML IV PRN (19:30)
[2018-02-13 20:30] LABS: BILIRUBIN,URINE NEGATIVE (NEG); CLARITY,URINE CLOUDY; COLOR,URINE YELLOW; NITRITE,URINE NEGATIVE (NEG); PH,URINE 5.5; PROTEIN,URINE 100 mg/dL (NEG-TRACE); UROBILINOGEN,URINE 0.2 mg/dL (0.2 mg/dL)
[2018-02-13 20:39] LABS: AMORPHOUS SEDIMENT,UR PRESENT /HPF; BACTERIA,URINE 0 /HPF (0-FEW); GRANULAR CASTS,URINE FEW /HPF; RBC,URINE OCC /HPF (0-2); SQUAMOUS EPITHELIAL CELL,UR FEW /LPF; WBC,URINE OCC /HPF (0-4)
[2018-02-13] MEDS ORDERED: CEFEPIME HCL IV Push 1 GM VIAL. IVP SCH (21:00)
[2018-02-13] MEDS: ATORVASTATIN CALCIUM 10 MG TABLET. PO SCH (23:16)
[2018-02-14] VITALS (33 sets, daily range): BP systolic 57–166; BP diastolic 42–83
[2018-02-14] MEDS: NOREPINEPHRIN 8MG/250ML PREMIX 250 ML IV PRN ×2 (00:38→15:02)
[2018-02-14] MEDS: ACETAMINOPHEN 500 MG TABLET PO PRN ×2 (00:40→17:23)
[2018-02-14] MEDS: ONDANSETRON ODT 4 MG TAB.RAPDIS. PO SCH ×3 (00:40→12:00)
[2018-02-14 05:43] LABS: BASO % 0 % (0-3); EOS % 0 % (0-3); HEMATOCRIT 23.9 % (36.0-47.0); HEMOGLOBIN 8.2 g/dL (12.0-15.5); LYMPH # 0.6 x10^3/uL (1.0-4.8); LYMPH % 7 % (24-48); MEAN CORPUSCULAR HEMOGLOBIN 31 pg (25-35); MEAN CORPUSCULAR HGB CONC 34 g/dL (31-37); MEAN CORPUSCULAR VOLUME 90 fL (79-100); MONO # 0.3 x10^3/uL (0.0-1.1); MONO % 3 % (0-9); NEUT # 7.6 x10^3uL (1.8-7.7); NEUT % 90 % (31-73); PLATELET COUNT 137 x10^3/uL (140-400); RED BLOOD COUNT 2.66 x10^6/uL (3.50-5.40); RED CELL DISTRIBUTION WIDTH 16.7 % (11.5-14.5); WHITE BLOOD COUNT 8.5 x10^3/uL (4.0-11.0)
[2018-02-14 05:45] LABS: CALCIUM 7.3 mg/dL (8.5-10.1); CREATININE 4.2 mg/dL (0.6-1.0); GFR 10.6; MAGNESIUM 2.6 mg/dL (1.8-2.4); POTASSIUM 4.2 mmol/L (3.5-5.1)
[2018-02-14] MEDS: ALBUTEROL SULFATE 2.5 MG/3 ML NEBU. NEB SCH ×4 (07:28→19:23)
[2018-02-14] MEDS: BUDESONIDE 0.5 MG/2 ML NEBU. NEB SCH ×2 (07:29→19:59)
[2018-02-14] MEDS: MAGNESIUM HYDROXIDE 2,400 MG/30 ML ORAL.SUSP. PO SCH (07:37)
[2018-02-14] MEDS: IPRATROPIUM BROMIDE 0.5 MG/2.5 ML NEBU. NEB SCH ×4 (08:00→19:59)
[2018-02-14] MEDS: PANTOPRAZOLE IV PUSH 40 MG VIAL. IVP SCH ×2 (08:05→17:23)
[2018-02-14] MEDS: MAGNESIUM OXIDE 400 MG TABLET PO SCH (08:06)
[2018-02-14] MEDS: methylPREDNISolone SOD SUCC PF 40 MG/ML VIAL. IV SCH ×2 (08:06→21:29)
[2018-02-14] MEDS: ASPIRIN CHEWABLE 81 MG TABLET. PO SCH (08:06)
[2018-02-14] MEDS: CLOPIDOGREL BISULFATE 75 MG TABLET PO SCH (08:06)
[2018-02-14] MEDS: MEROPENEM 500 MG in IV NORMAL SALINE 50ML 50 ML IV SCH (08:07)
[2018-02-14] MEDS: NICOTINE 14MG PATCH. TD SCH (08:08)
[2018-02-14] MEDS: METOPROLOL TART IMMED RELEASE 25 MG TABLET. PO SCH ×2 (08:08→21:30)
[2018-02-14] MEDS ORDERED: IV NORMAL SALINE 1000ML BAG 1,000 ML IV PRN ×2 (08:16)
[2018-02-14] MEDS ORDERED: DIALYSIS PATIENT. MC PRN (08:30)
--- NOTE | 2018-02-14 09:07 | PDOC ---
Infectious Disease Note Subjective Subjective Developed worsening respiratory failure 02/09 now intubated and sedated No fevers times one last pm No diarrhea ROS ROS unable to do Vital Sign Vital Signs Vital Signs Date Time Temp Pulse Resp B/P (MAP) Pulse Ox O2 Delivery O2 Flow Rate FiO2 02/14/18 08:48 98 Ventilator 02/14/18 07:00 86 17 111/65 (80) 02/14/18 04:00 98.6 98.6 Physical Exam PHYSICAL EXAM GENERAL: Intubated and alert some HEENT: Pupils equally round & reactive. ETT, OGT NECK: supple LUNGS: Clear to auscultation. HEART: S1, S2. ABDOMEN: Obese, soft. No grimace or guarding to palpation. Bowel sounds present. GENITOURINARY: Indwelling Forman in place. EXTREMITIES: Trace edema in lower extremities bilaterally. No cyanosis. Mitts SKIN: Warm without rash. NEUROLOGIC: Alert some RIJ - clean ok Labs Lab Laboratory Tests Test 02/13/18 09:30 02/13/18 13:00 02/13/18 14:30 02/13/18 19:10 O2 Saturation 93 % (92-99) 92 % (92-99) Arterial Blood pH 7.47 (7.35-7.45) 7.34 (7.35-7.45) Arterial Blood pCO2 at Patient Temp 26 mmHg (35-46) 36 mmHg (35-46) Arterial Blood pO2 at Patient Temp 69 mmHg (65-108) 74 mmHg (65-108) Arterial Blood HCO3 18 mmol/L (21-28) 19 mmol/L (21-28) Arterial Blood Base Excess -4 mmol/L (-3-3) -6 mmol/L (-3-3) FiO2 40 40 Heparin Anti-Xa Act, Unfractionated 0.41 IU/mL (0.30-0.70) Hepatitis B Surface Antigen Nonreactive (Nonreactive) Arterial Blood pH (Temp corrected) 7.31 Arterial Blood pCO2 (Temp correct) 40 mmHg Arterial Blood pO2 (Temp corrected) 85 mmHg Urine Collection Type Unknown Urine Color Yellow Urine Clarity Cloudy Urine pH 5.5 Urine Specific [place] 1.015 Urine Protein 100 mg/dL (NEG-TRACE) Urine Glucose (UA) Negative mg/dL (NEG) Urine Ketones (Stick) Negative mg/dL (NEG) Urine Blood Small (NEG) Urine Nitrite Negative (NEG) Urine Bilirubin Negative (NEG) Urine Urobilinogen Dipstick 0.2 mg/dL (0.2 mg/dL) Urine Leukocyte Esterase Negative (NEG) Urine RBC Occ /HPF (0-2) Urine WBC Occ /HPF (0-4) Urine Squamous Epithelial Cells Few /LPF Urine Amorphous Sediment Present /HPF Urine Bacteria 0 /HPF (0-FEW) Urine Granular Casts Few /HPF Urine Mucus Mod /LPF Test 02/14/18 05:00 White Blood Count 8.5 x10^3/uL (4.0-11.0) Red Blood Count 2.66 x10^6/uL (3.50-5.40) Hemoglobin 8.2 g/dL (12.0-15.5) Hematocrit 23.9 % (36.0-47.0) Mean Corpuscular Volume 90 fL (79-100) Mean Corpuscular Hemoglobin 31 pg (25-35) Mean Corpuscular Hemoglobin Concent 34 g/dL (31-37) Red Cell Distribution Width 16.7 % (11.5-14.5) Platelet Count 137 x10^3/uL (140-400) Neutrophils (%) (Auto) 90 % (31-73) Lymphocytes (%) (Auto) 7 % (24-48) Monocytes (%) (Auto) 3 % (0-9) Eosinophils (%) (Auto) 0 % (0-3) Basophils (%) (Auto) 0 % (0-3) Neutrophils # (Auto) 7.6 x10^3uL (1.8-7.7) Lymphocytes # (Auto) 0.6 x10^3/uL (1.0-4.8) Monocytes # (Auto) 0.3 x10^3/uL (0.0-1.1) Eosinophils # (Auto) 0.0 x10^3/uL (0.0-0.7) Basophils # (Auto) 0.0 x10^3/uL (0.0-0.2) Sodium Level 143 mmol/L (136-145) Potassium Level 4.2 mmol/L (3.5-5.1) Chloride Level 107 mmol/L (98-107) Carbon Dioxide Level 23 mmol/L (21-32) Anion Gap 13 (6-14) Blood Urea Nitrogen 100 mg/dL (7-20) Creatinine 4.2 mg/dL (0.6-1.0) Estimated GFR (Cockcroft-Gault) 10.6 Glucose Level 180 mg/dL (70-99) Calcium Level 7.3 mg/dL (8.5-10.1) Magnesium Level 2.6 mg/dL (1.8-2.4) Micro Microbiology 02/12/18 Blood Culture - Preliminary, Resulted NO GROWTH AFTER 1 DAY 02/10/18 - Final, Complete 02/10/18 - Final, Complete 02/10/18 - Final, Complete 02/10/18 Gram Stain Evaluation - Final, Complete 02/10/18 Sputum Culture - Final, Complete 02/10/18 Sputum Result 1 - Final, Complete Objective Assessment Fever times one overnight 02/11 - better Sputum with GPC from 02/10 + BM finally Sepsis with lactic acidosis, present on admission.- better off Levophed Acute respiratory failure, likely aspirated. s/p intubation now on Solumedrol Hypotension resolved ALLERGY TO METRONIDAZOLE. ANGELICA - worsing Non-ST elevation myocardial infarction. Troponin up to 44.56 now Acute diastolic heart failure. Paroxysmal atrial fibrillation. Peripheral vascular disease. History of seizures. History of Clostridium difficile, with fecal transplant. Plan Plan of Care F/u Repeat Blood F/u sputum cults Cont Zyvox/Micafungin/Cefepime started 02/12 - avoid Meropenem if possible with h/o Seizures F/u Blood cultures from 02/09 pending Given ANGELICA avoiding vanc Monitor for loose stool given h/o C-diff Monitor labs/temp and renal function closely Expect WBC to increase with steroid Labs in am Supportive care D/w RN Critically ill ZOFIA DAVALOS MD Feb 14, 2018 09:07
--- NOTE | 2018-02-14 09:12 | PDOC ---
SUBJECTIVE ROS Intubated, Initiated Dialysis Yesterday, tolerated well OBJECTIVE Vital Signs Vital Signs Date Time Temp Pulse Resp B/P (MAP) Pulse Ox O2 Delivery O2 Flow Rate FiO2 02/14/18 08:48 98 Ventilator 02/14/18 07:00 86 17 111/65 (80) 02/14/18 04:00 98.6 98.6 I & 0 Intake and Output 02/14/18 07:00 Intake Total 3540.68 ml Output Total 1115 ml Balance 2425.68 ml IV Total 1239.68 ml Tube Feeding 1701 ml Other 600 ml Output Urine Total 815 ml Stool Total 300 ml Gastric Drainage Total 0 ml # Bowel Movements 2 PHYSICAL EXAM Physical Exam GENERAL: Intubated HEENT: ETT, OGT NECK: supple LUNGS: Clear to auscultation. HEART: S1, S2. ABDOMEN: soft. Bowel sounds present. GENITOURINARY: Indwelling Forman in place. EXTREMITIES: Trace edema in lower extremities bilaterally. SKIN: No rash NEUROLOGIC: Alert some DIAGNOSIS/ASSESSMENT Assessment & Plan Acute renal failure --Initially Non Oliguric, sepsis / cardiorenal- likely acute tubular necrosis UOP had declined . Last 24 hrs improved some Initiated HD yesterday , 2 nd Tx today- for clearance Seen on HD , tolerating well, dw vending machine servicer CKD stage 3- likely based on previous labs in the system Hypokalemia- Normal Hypernatremia- Normal Na today On TF Non-ST elevation myocardial infarction. Troponin up to 44.56 Acute diastolic heart failure. Paroxysmal atrial fibrillation. Discussed with vending machine servicer COMMENT/RELEVANT DATA Meds Current Medications Medications (Trade) Dose Ordered Sig/Sravan Start Time Stop Time Status Last Admin Dose Admin Acetaminophen (Tylenol Supp) 325 mg PRN Q6HRS PRN 02/09/18 06:45 02/09/18 09:30 325 MG Acetaminophen (Tylenol) 500 mg BID 02/09/18 10:00 02/09/18 10:16 DC Acetaminophen/ Hydrocodone Bitart (Lortab 10) 1 tab PRN Q4HRS PRN 02/09/18 09:00 Albumin Human 200 ml @ 200 mls/hr 1X PRN PRN 02/13/18 19:30 02/14/18 01:29 DC Albuterol Sulfate (Ventolin Neb Soln) 2.5 mg RTQID 02/09/18 12:00 02/14/18 07:28 2.5 MG Albuterol/ Ipratropium (Duoneb) 3 ml 1X ONCE 02/08/18 16:00 02/08/18 16:01 DC 02/08/18 17:14 3 ML Aspirin (Radha Aspirin) 325 mg DAILY 02/09/18 09:00 02/09/18 10:16 DC Aspirin (Children'S Aspirin) 81 mg DAILYWBKFT 02/12/18 16:15 02/14/18 08:06 81 MG Atorvastatin Calcium (Lipitor) 10 mg QHS 02/12/18 21:00 02/13/18 23:16 10 MG Budesonide (Pulmicort) 0.5 mg RTBID 02/09/18 08:00 02/14/18 07:29 0.5 MG Cefepime HCl (Maxipime) 1 gm QHS 02/13/18 21:00 02/13/18 21:00 DC Citalopram Hydrobromide (CeleXA) 40 mg QHS 02/09/18 21:00 02/09/18 21:00 DC Clonidine HCl (Catapres) 0.1 mg QHS 02/08/18 22:00 02/09/18 10:16 DC 02/08/18 22:05 0.1 MG Clopidogrel Bisulfate (Plavix) 75 mg DAILYWBKFT 02/13/18 16:00 02/14/18 08:06 75 MG Docusate Sodium (Colace) 100 mg BID 02/09/18 09:00 02/09/18 10:16 DC Ephedrine Sulfate (ePHEDrine PF IN SALINE SYRINGE) 50 mg STK-MED ONCE 02/09/18 07:00 02/11/18 07:43 DC Famotidine (Pepcid Vial) 20 mg QHS 02/09/18 21:00 02/13/18 14:47 DC 02/12/18 21:56 20 MG Fentanyl Citrate 30 ml @ 0 mls/hr CONT PRN 02/09/18 20:30 02/14/18 03:12 1.25 MLS/HR Furosemide (Lasix) 60 mg 1X ONCE 02/09/18 20:00 02/09/18 20:01 DC 02/09/18 20:16 60 MG Gabapentin (Neurontin) 300 mg TID 02/08/18 22:20 02/09/18 10:16 DC 02/08/18 22:08 300 MG Heparin Sodium (Porcine) (Heparin Sodium) 2,500 unit 1X ONCE 02/13/18 15:00 02/13/18 15:03 DC Heparin Sodium/ Dextrose 500 ml @ 0 mls/hr CONT PRN 02/08/18 17:30 02/13/18 08:22 DC 02/12/18 19:46 5.7 MLS/HR Hydrochlorothiazide (Microzide) 12.5 mg QHS 02/09/18 21:00 02/09/18 21:00 DC Info (Anti-Coagulation Monitoring By Pharmacy) 1 each PRN DAILY PRN 02/08/18 17:30 02/13/18 09:17 DC 02/11/18 12:25 1 EACH Info (PHARMACY MONITORING -- do not chart) 1 each PRN DAILY PRN 02/14/18 08:30 UNV Ipratropium [place] (Atrovent) 0.5 mg RTQID 02/09/18 08:00 02/13/18 19:59 0.5 MG Labetalol HCl (Normodyne Iv Push) 20 mg PRN Q2HR PRN 02/12/18 16:15 02/13/18 05:34 20 MG Lidocaine/Sodium Bicarbonate (Buffered Lidocaine 1%) 4 ml 1X ONCE 02/13/18 14:45 02/13/18 14:52 DC 02/13/18 14:57 4 ML Linezolid/Dextrose 300 ml @ 300 mls/hr Q12HR 02/12/18 09:00 02/14/18 08:08 300 MLS/HR Lorazepam (Ativan) 1 mg PRN Q4HRS PRN 02/08/18 21:30 02/09/18 01:49 1 MG Magnesium Hydroxide (Milk Of Magnesia) 400 mg DAILY 02/09/18 09:00 02/13/18 08:18 400 MG Magnesium Oxide (Magnesium Oxide) 400 mg DAILY 02/09/18 10:00 02/14/18 08:06 400 MG Magnesium Sulfate/ Dextrose 100 ml @ 25 mls/hr 1X ONCE 02/08/18 22:00 02/09/18 01:59 DC 02/08/18 22:03 25 MLS/HR Meropenem 500 mg/ Sodium Chloride 50 ml @ 100 mls/hr Q24H 02/13/18 16:00 02/14/18 08:07 100 MLS/HR Methylprednisolone Sodium Succinate (SOLU-Medrol 40MG VIAL) 40 mg Q12HR 02/10/18 09:00 02/14/18 08:06 40 MG Metoprolol Tartrate (Lopressor) 25 mg BID 02/13/18 11:00 02/13/18 23:17 25 MG Micafungin Sodium 100 mg/Dextrose 100 ml @ 100 mls/hr Q24H 02/12/18 10:00 02/13/18 10:10 100 MLS/HR Midazolam HCl (Versed) 5 mg STK-MED ONCE 02/13/18 15:30 02/14/18 09:00 DC Morphine Sulfate (Morphine Sulfate) 4 mg PRN Q4HRS PRN 02/08/18 21:30 02/09/18 19:45 4 MG Multivitamins (Thera M Plus) 1 tab DAILY 02/09/18 10:00 02/09/18 10:16 DC Nicotine (Nicoderm Cq 14mg) 1 patch DAILY 02/09/18 10:00 02/14/18 08:08 1 PATCH Non-Formulary Medication (Acetaminophen ) 1 tab BID 02/09/18 09:00 02/09/18 09:12 DC Non-Formulary Medication (Albuterol Sulfate (Albuterol Sulfate Neb Soln)) 1 vial QID 02/09/18 09:00 02/09/18 09:22 DC Non-Formulary Medication (Magnesium Oxide ) 1 tab DAILY 02/09/18 09:00 02/09/18 09:14 DC Non-Formulary Medication (Multivitamin (Multivitamins)) 1 tab DAILY 02/09/18 09:00 02/09/18 09:14 DC Non-Formulary Medication (Polyethylene Glycol 3350 (Miralax)) 1 packet DAILY 02/09/18 09:00 02/09/18 09:17 DC Norepinephrine Bitartrate 250 ml @ 1.875 mls/ hr CONT PRN 02/10/18 02:45 02/14/18 00:38 11.25 MLS/HR Ondansetron HCl (Zofran Odt) 4 mg Q6HRS 02/09/18 12:00 02/14/18 05:52 4 MG Ondansetron HCl (Zofran) 4 mg PRN Q6HRS PRN 02/09/18 09:00 Oxycodone HCl (OxyCONTIN) 10 mg BID 02/09/18 09:00 02/09/18 10:16 DC Oxycodone/ Acetaminophen (Percocet 5/325) 1 tab BID 02/09/18 09:00 02/09/18 10:16 DC Pantoprazole Sodium (PROTONIX VIAL for IV PUSH) 40 mg BIDAC 02/13/18 16:30 02/14/18 08:05 40 MG Phenylephrine HCl (PHENYLEPHRINE in 0.9% NACL PF) 1 mg STK-MED ONCE 02/09/18 07:00 02/11/18 07:43 DC Piperacillin Sod/ Tazobactam Sod (Zosyn Per Pharmacy) 1 each PRN DAILY PRN 02/08/18 16:15 02/12/18 07:24 DC Piperacillin Sod/ Tazobactam Sod 2.25 gm/Sodium Chloride 50 ml @ 100 mls/hr Q6HRS 02/11/18 12:00 02/12/18 07:24 DC 02/12/18 05:47 100 MLS/HR Piperacillin Sod/ Tazobactam Sod 3.375 gm/Sodium Chloride 50 ml @ 100 mls/hr Q6HRS 02/09/18 00:00 02/11/18 07:14 DC 02/11/18 05:37 100 MLS/HR Polyethylene Glycol (miraLAX PACKET) 17 gm DAILY 02/09/18 10:00 02/09/18 10:16 DC Propofol (Diprivan) 200 mg STK-MED ONCE 02/09/18 07:00 02/11/18 07:43 DC Quetiapine Fumarate (SEROquel) 25 mg QHS 02/09/18 21:00 02/09/18 21:00 DC Rocuronium [place] (Zemuron) 50 mg STK-MED ONCE 02/09/18 21:00 02/11/18 08:22 DC Sodium Chloride 1,000 ml @ 400 mls/hr Q2H30M PRN 02/14/18 08:16 02/14/18 20:15 Succinylcholine Chloride (Anectine) 200 mg STK-MED ONCE 02/09/18 07:00 02/11/18 07:43 DC Tramadol HCl (Ultram) 50 mg PRN DAILY PRN 02/09/18 09:00 Vancomycin HCl (Vanco Per Pharmacy) 1 each PRN DAILY PRN 18 16:15 18 09:07 DC 02/09/18 08:59 1 EACH Vancomycin HCl (Vancomycin Trough Level) 1 each 1X ONCE 02/10/18 16:00 02/10/18 16:00 DC Vancomycin HCl 1.75 gm/Sodium Chloride 500 ml @ 250 mls/hr 1X ONCE 02/08/18 17:00 02/08/18 18:59 DC 02/08/18 16:36 250 MLS/HR Vancomycin HCl 1 gm/Sodium Chloride 250 ml @ 250 mls/hr Q24H 02/09/18 16:30 02/10/18 09:07 DC 02/09/18 16:30 250 MLS/HR Lab Laboratory Tests Test 02/13/18 09:30 02/13/18 13:00 02/13/18 14:30 02/13/18 19:10 O2 Saturation 93 % (92-99) 92 % (92-99) Arterial Blood pH 7.47 (7.35-7.45) 7.34 (7.35-7.45) Arterial Blood pCO2 at Patient Temp 26 mmHg (35-46) 36 mmHg (35-46) Arterial Blood pO2 at Patient Temp 69 mmHg (65-108) 74 mmHg (65-108) Arterial Blood HCO3 18 mmol/L (21-28) 19 mmol/L (21-28) Arterial Blood Base Excess -4 mmol/L (-3-3) -6 mmol/L (-3-3) FiO2 40 40 Heparin Anti-Xa Act, Unfractionated 0.41 IU/mL (0.30-0.70) Hepatitis B Surface Antigen Nonreactive (Nonreactive) Arterial Blood pH (Temp corrected) 7.31 Arterial Blood pCO2 (Temp correct) 40 mmHg Arterial Blood pO2 (Temp corrected) 85 mmHg Urine Collection Type Unknown Urine Color Yellow Urine Clarity Cloudy Urine pH 5.5 Urine Specific [place] 1.015 Urine Protein 100 mg/dL (NEG-TRACE) Urine Glucose (UA) Negative mg/dL (NEG) Urine Ketones (Stick) Negative mg/dL (NEG) Urine Blood Small (NEG) Urine Nitrite Negative (NEG) Urine Bilirubin Negative (NEG) Urine Urobilinogen Dipstick 0.2 mg/dL (0.2 mg/dL) Urine Leukocyte Esterase Negative (NEG) Urine RBC Occ /HPF (0-2) Urine WBC Occ /HPF (0-4) Urine Squamous Epithelial Cells Few /LPF Urine Amorphous Sediment Present /HPF Urine Bacteria 0 /HPF (0-FEW) Urine Granular Casts Few /HPF Urine Mucus Mod /LPF Test 02/14/18 05:00 White Blood Count 8.5 x10^3/uL (4.0-11.0) Red Blood Count 2.66 x10^6/uL (3.50-5.40) Hemoglobin 8.2 g/dL (12.0-15.5) Hematocrit 23.9 % (36.0-47.0) Mean Corpuscular Volume 90 fL (79-100) Mean Corpuscular Hemoglobin 31 pg (25-35) Mean Corpuscular Hemoglobin Concent 34 g/dL (31-37) Red Cell Distribution Width 16.7 % (11.5-14.5) Platelet Count 137 x10^3/uL (140-400) Neutrophils (%) (Auto) 90 % (31-73) Lymphocytes (%) (Auto) 7 % (24-48) Monocytes (%) (Auto) 3 % (0-9) Eosinophils (%) (Auto) 0 % (0-3) Basophils (%) (Auto) 0 % (0-3) Neutrophils # (Auto) 7.6 x10^3uL (1.8-7.7) Lymphocytes # (Auto) 0.6 x10^3/uL (1.0-4.8) Monocytes # (Auto) 0.3 x10^3/uL (0.0-1.1) Eosinophils # (Auto) 0.0 x10^3/uL (0.0-0.7) Basophils # (Auto) 0.0 x10^3/uL (0.0-0.2) Sodium Level 143 mmol/L (136-145) Potassium Level 4.2 mmol/L (3.5-5.1) Chloride Level 107 mmol/L (98-107) Carbon Dioxide Level 23 mmol/L (21-32) Anion Gap 13 (6-14) Blood Urea Nitrogen 100 mg/dL (7-20) Creatinine 4.2 mg/dL (0.6-1.0) Estimated GFR (Cockcroft-Gault) 10.6 Glucose Level 180 mg/dL (70-99) Calcium Level 7.3 mg/dL (8.5-10.1) Magnesium Level 2.6 mg/dL (1.8-2.4) Results All relevant outside records, renal labs, imaging studies, telemetry/EKG's were reviewed. VINH BLACKBURN MD Feb 14, 2018 09:12
[2018-02-14] MEDS: MICAFUNGIN 100 MG in IV DEXTROSE 5% 100ML 100 ML IV SCH (09:33)
--- NOTE | 2018-02-14 09:53 | PDOC ---
PROGRESS NOTES Chief Complaint Chief Complaint Acute hypoxic respiratory failure NOW IPPV (02/09/18), Dialysis began 02/13/18, patient tolerating well Spontaneous respiration on 40% O2, failed returned to Ventilator assisted breathing AC22/450/50% 5 peep Sedated with fentanyl Levophed drip COPD, Smoker - 1 ppday? Severe sepsis - with respiratory failure likely 2/2 pneumonia/bronchitis, fever 102.6F, leukocytosis, tachycardia, Acute diastolic heart failure - BNP of greater than 35,000. diuresis for pulmonary congestion PAD - with carotid, AAA, renovascular disease - cont asa plavix NSTEMI - elevated troponin at 17. Paroxysmal atrial fibrillation. Now in sinus rhythm. on coumadin, INR subtherapeutic, History of a previous CVA - Acute metabolic encephalopathy secondary to multifactorial see above ANGELICA, VMN - new (02/10/18) History of Present Illness History of Present Illness pt. was seen and examined in ICU Discussed patient with nurse at the bedside, discussed need for GI consult from discoloration of residuals, Sedated with fentanyl Spontaneous respiration on 40% O2 Vitals Vitals Vital Signs Date Time Temp Pulse Resp B/P (MAP) Pulse Ox O2 Delivery O2 Flow Rate FiO2 02/14/18 09:00 95 17 107/70 (82) 96 Ventilator 02/14/18 08:00 98.1 98.1 Physical Exam Physical Exam GENERAL: Intubated and alert some HEENT: Pupils equally round & reactive. ETT, OGT NECK: supple LUNGS: Clear to auscultation. HEART: S1, S2. ABDOMEN: Obese, soft. No grimace or guarding to palpation. Bowel sounds present. GENITOURINARY: Indwelling Forman in place. EXTREMITIES: Trace edema in lower extremities bilaterally. No cyanosis. Mitts SKIN: Warm without rash. NEUROLOGIC: Alert some RIJ - clean ok General: Other (intubated on a ventilator.) Heart: Regular rate Lungs: Crackles Abdomen: Normal bowel sounds, Other (possible GI bleed, investigate) Extremities: No clubbing, No cyanosis, No edema, Normal pulses, No tenderness/ swelling Skin: No rashes, No breakdown, No significant lesion Labs LABS Laboratory Tests Test 02/13/18 13:00 02/13/18 14:30 02/13/18 19:10 02/14/18 05:00 Heparin Anti-Xa Act, Unfractionated 0.41 IU/mL (0.30-0.70) Hepatitis B Surface Antigen Nonreactive (Nonreactive) Hepatitis B Surface Antibody, Quant <3.1 mIU/mL (Immunity>9.9) O2 Saturation 92 % (92-99) Arterial Blood pH 7.34 (7.35-7.45) Arterial Blood pH (Temp corrected) 7.31 Arterial Blood pCO2 at Patient Temp 36 mmHg (35-46) Arterial Blood pCO2 (Temp correct) 40 mmHg Arterial Blood pO2 at Patient Temp 74 mmHg (65-108) Arterial Blood pO2 (Temp corrected) 85 mmHg Arterial Blood HCO3 19 mmol/L (21-28) Arterial Blood Base Excess -6 mmol/L (-3-3) FiO2 40 Urine Collection Type Unknown Urine Color Yellow Urine Clarity Cloudy Urine pH 5.5 Urine Specific [place] 1.015 Urine Protein 100 mg/dL (NEG-TRACE) Urine Glucose (UA) Negative mg/dL (NEG) Urine Ketones (Stick) Negative mg/dL (NEG) Urine Blood Small (NEG) Urine Nitrite Negative (NEG) Urine Bilirubin Negative (NEG) Urine Urobilinogen Dipstick 0.2 mg/dL (0.2 mg/dL) Urine Leukocyte Esterase Negative (NEG) Urine RBC Occ /HPF (0-2) Urine WBC Occ /HPF (0-4) Urine Squamous Epithelial Cells Few /LPF Urine Amorphous Sediment Present /HPF Urine Bacteria 0 /HPF (0-FEW) Urine Granular Casts Few /HPF Urine Mucus Mod /LPF White Blood Count 8.5 x10^3/uL (4.0-11.0) Red Blood Count 2.66 x10^6/uL (3.50-5.40) Hemoglobin 8.2 g/dL (12.0-15.5) Hematocrit 23.9 % (36.0-47.0) Mean Corpuscular Volume 90 fL (79-100) Mean Corpuscular Hemoglobin 31 pg (25-35) Mean Corpuscular Hemoglobin Concent 34 g/dL (31-37) Red Cell Distribution Width 16.7 % (11.5-14.5) Platelet Count 137 x10^3/uL (140-400) Neutrophils (%) (Auto) 90 % (31-73) Lymphocytes (%) (Auto) 7 % (24-48) Monocytes (%) (Auto) 3 % (0-9) Eosinophils (%) (Auto) 0 % (0-3) Basophils (%) (Auto) 0 % (0-3) Neutrophils # (Auto) 7.6 x10^3uL (1.8-7.7) Lymphocytes # (Auto) 0.6 x10^3/uL (1.0-4.8) Monocytes # (Auto) 0.3 x10^3/uL (0.0-1.1) Eosinophils # (Auto) 0.0 x10^3/uL (0.0-0.7) Basophils # (Auto) 0.0 x10^3/uL (0.0-0.2) Sodium Level 143 mmol/L (136-145) Potassium Level 4.2 mmol/L (3.5-5.1) Chloride Level 107 mmol/L (98-107) Carbon Dioxide Level 23 mmol/L (21-32) Anion Gap 13 (6-14) Blood Urea Nitrogen 100 mg/dL (7-20) Creatinine 4.2 mg/dL (0.6-1.0) Estimated GFR (Cockcroft-Gault) 10.6 Glucose Level 180 mg/dL (70-99) Calcium Level 7.3 mg/dL (8.5-10.1) Magnesium Level 2.6 mg/dL (1.8-2.4) Review of Systems Review of Systems unable to obtain Assessment and Plan Assessmemt and Plan Assessment Acute hypoxic respiratory failure NOW IPPV (02/09/18) Dialysis began 02/13/18, patient tolerating well returned to Ventilator assisted breathing AC22/450/50% 5 peep Spontaneous respiration on 40% O2 Sedated with fentanyl Levophed drip COPD, Smoker - 1 ppday? Severe sepsis - with respiratory failure likely 2/2 pneumonia/bronchitis, fever 102.6F, leukocytosis, tachycardia, Acute diastolic heart failure - BNP of greater than 35,000. diuresis for pulmonary congestion PAD - with carotid, AAA, renovascular disease - cont asa plavix NSTEMI - elevated troponin at 17. Paroxysmal atrial fibrillation. Now in sinus rhythm. on coumadin, INR subtherapeutic, History of a previous CVA - Acute metabolic encephalopathy secondary to multifactorial see above ANGELICA, VMN - new (02/10/18) Plan Consult GI for possible GI bleed returned to Ventilator assisted breathing AC22/450/50% 5 peep 02/14/18 Forman to BSD HD began yesterday ICU monitoring Back on Ventilation Recheck Labs OG feeds 45cc/hr Comment Review of Relevant I have reviewed the following items pat (where applicable) has been applied. Labs Laboratory Tests Test 02/13/18 05:45 02/13/18 09:30 02/13/18 13:00 02/13/18 14:30 White Blood Count 10.2 x10^3/uL (4.0-11.0) Red Blood Count 3.80 x10^6/uL (3.50-5.40) Hemoglobin 11.7 g/dL (12.0-15.5) Hematocrit 34.6 % (36.0-47.0) Mean Corpuscular Volume 91 fL (79-100) Mean Corpuscular Hemoglobin 31 pg (25-35) Mean Corpuscular Hemoglobin Concent 34 g/dL (31-37) Red Cell Distribution Width 17.2 % (11.5-14.5) Platelet Count 172 x10^3/uL (140-400) Neutrophils (%) (Auto) 88 % (31-73) Lymphocytes (%) (Auto) 7 % (24-48) Monocytes (%) (Auto) 5 % (0-9) Eosinophils (%) (Auto) 0 % (0-3) Basophils (%) (Auto) 0 % (0-3) Neutrophils # (Auto) 9.0 x10^3uL (1.8-7.7) Lymphocytes # (Auto) 0.7 x10^3/uL (1.0-4.8) Monocytes # (Auto) 0.5 x10^3/uL (0.0-1.1) Eosinophils # (Auto) 0.0 x10^3/uL (0.0-0.7) Basophils # (Auto) 0.0 x10^3/uL (0.0-0.2) Segmented Neutrophils % 65 % (35-66) Band Neutrophils % 26 % (0-9) Lymphocytes % 5 % (24-48) Monocytes % 4 % (0-10) Nucleated Red Blood Cells 1 Platelet Estimate Adequate (ADEQUATE) Anisocytosis Slight Spherocytes Occ Ovalocytes Few [place] Cells Few Heparin Anti-Xa Act, Unfractionated 0.23 IU/mL (0.30-0.70) 0.41 IU/mL (0.30-0.70) Sodium Level 146 mmol/L (136-145) Potassium Level 3.6 mmol/L (3.5-5.1) Chloride Level 108 mmol/L (98-107) Carbon Dioxide Level 20 mmol/L (21-32) Anion Gap 18 (6-14) Blood Urea Nitrogen 124 mg/dL (7-20) Creatinine 5.0 mg/dL (0.6-1.0) Estimated GFR (Cockcroft-Gault) 8.7 BUN/Creatinine Ratio 25 (6-20) Glucose Level 187 mg/dL (70-99) Calcium Level 7.4 mg/dL (8.5-10.1) Total Bilirubin 0.3 mg/dL (0.2-1.0) Aspartate Amino Transf (AST/SGOT) 87 U/L (15-37) Alanine Aminotransferase (ALT/SGPT) 70 U/L (14-59) Alkaline Phosphatase 62 U/L (46-116) Total Protein 5.8 g/dL (6.4-8.2) Albumin 2.0 g/dL (3.4-5.0) Albumin/Globulin Ratio 0.5 (1.0-1.7) O2 Saturation 93 % (92-99) 92 % (92-99) Arterial Blood pH 7.47 (7.35-7.45) 7.34 (7.35-7.45) Arterial Blood pCO2 at Patient Temp 26 mmHg (35-46) 36 mmHg (35-46) Arterial Blood pO2 at Patient Temp 69 mmHg (65-108) 74 mmHg (65-108) Arterial Blood HCO3 18 mmol/L (21-28) 19 mmol/L (21-28) Arterial Blood Base Excess -4 mmol/L (-3-3) -6 mmol/L (-3-3) FiO2 40 40 Hepatitis B Surface Antigen Nonreactive (Nonreactive) Hepatitis B Surface Antibody, Quant <3.1 mIU/mL (Immunity>9.9) Arterial Blood pH (Temp corrected) 7.31 Arterial Blood pCO2 (Temp correct) 40 mmHg Arterial Blood pO2 (Temp corrected) 85 mmHg Test 02/13/18 19:10 02/14/18 05:00 Urine Collection Type Unknown Urine Color Yellow Urine Clarity Cloudy Urine pH 5.5 Urine Specific [place] 1.015 Urine Protein 100 mg/dL (NEG-TRACE) Urine Glucose (UA) Negative mg/dL (NEG) Urine Ketones (Stick) Negative mg/dL (NEG) Urine Blood Small (NEG) Urine Nitrite Negative (NEG) Urine Bilirubin Negative (NEG) Urine Urobilinogen Dipstick 0.2 mg/dL (0.2 mg/dL) Urine Leukocyte Esterase Negative (NEG) Urine RBC Occ /HPF (0-2) Urine WBC Occ /HPF (0-4) Urine Squamous Epithelial Cells Few /LPF Urine Amorphous Sediment Present /HPF Urine Bacteria 0 /HPF (0-FEW) Urine Granular Casts Few /HPF Urine Mucus Mod /LPF White Blood Count 8.5 x10^3/uL (4.0-11.0) Red Blood Count 2.66 x10^6/uL (3.50-5.40) Hemoglobin 8.2 g/dL (12.0-15.5) Hematocrit 23.9 % (36.0-47.0) Mean Corpuscular Volume 90 fL (79-100) Mean Corpuscular Hemoglobin 31 pg (25-35) Mean Corpuscular Hemoglobin Concent 34 g/dL (31-37) Red Cell Distribution Width 16.7 % (11.5-14.5) Platelet Count 137 x10^3/uL (140-400) Neutrophils (%) (Auto) 90 % (31-73) Lymphocytes (%) (Auto) 7 % (24-48) Monocytes (%) (Auto) 3 % (0-9) Eosinophils (%) (Auto) 0 % (0-3) Basophils (%) (Auto) 0 % (0-3) Neutrophils # (Auto) 7.6 x10^3uL (1.8-7.7) Lymphocytes # (Auto) 0.6 x10^3/uL (1.0-4.8) Monocytes # (Auto) 0.3 x10^3/uL (0.0-1.1) Eosinophils # (Auto) 0.0 x10^3/uL (0.0-0.7) Basophils # (Auto) 0.0 x10^3/uL (0.0-0.2) Sodium Level 143 mmol/L (136-145) Potassium Level 4.2 mmol/L (3.5-5.1) Chloride Level 107 mmol/L (98-107) Carbon Dioxide Level 23 mmol/L (21-32) Anion Gap 13 (6-14) Blood Urea Nitrogen 100 mg/dL (7-20) Creatinine 4.2 mg/dL (0.6-1.0) Estimated GFR (Cockcroft-Gault) 10.6 Glucose Level 180 mg/dL (70-99) Calcium Level 7.3 mg/dL (8.5-10.1) Magnesium Level 2.6 mg/dL (1.8-2.4) Laboratory Tests Test 02/13/18 13:00 02/13/18 14:30 02/13/18 19:10 02/14/18 05:00 Heparin Anti-Xa Act, Unfractionated 0.41 IU/mL (0.30-0.70) Hepatitis B Surface Antigen Nonreactive (Nonreactive) Hepatitis B Surface Antibody, Quant <3.1 mIU/mL (Immunity>9.9) O2 Saturation 92 % (92-99) Arterial Blood pH 7.34 (7.35-7.45) Arterial Blood pH (Temp corrected) 7.31 Arterial Blood pCO2 at Patient Temp 36 mmHg (35-46) Arterial Blood pCO2 (Temp correct) 40 mmHg Arterial Blood pO2 at Patient Temp 74 mmHg (65-108) Arterial Blood pO2 (Temp corrected) 85 mmHg Arterial Blood HCO3 19 mmol/L (21-28) Arterial Blood Base Excess -6 mmol/L (-3-3) FiO2 40 Urine Collection Type Unknown Urine Color Yellow Urine Clarity Cloudy Urine pH 5.5 Urine Specific [place] 1.015 Urine Protein 100 mg/dL (NEG-TRACE) Urine Glucose (UA) Negative mg/dL (NEG) Urine Ketones (Stick) Negative mg/dL (NEG) Urine Blood Small (NEG) Urine Nitrite Negative (NEG) Urine Bilirubin Negative (NEG) Urine Urobilinogen Dipstick 0.2 mg/dL (0.2 mg/dL) Urine Leukocyte Esterase Negative (NEG) Urine RBC Occ /HPF (0-2) Urine WBC Occ /HPF (0-4) Urine Squamous Epithelial Cells Few /LPF Urine Amorphous Sediment Present /HPF Urine Bacteria 0 /HPF (0-FEW) Urine Granular Casts Few /HPF Urine Mucus Mod /LPF White Blood Count 8.5 x10^3/uL (4.0-11.0) Red Blood Count 2.66 x10^6/uL (3.50-5.40) Hemoglobin 8.2 g/dL (12.0-15.5) Hematocrit 23.9 % (36.0-47.0) Mean Corpuscular Volume 90 fL (79-100) Mean Corpuscular Hemoglobin 31 pg (25-35) Mean Corpuscular Hemoglobin Concent 34 g/dL (31-37) Red Cell Distribution Width 16.7 % (11.5-14.5) Platelet Count 137 x10^3/uL (140-400) Neutrophils (%) (Auto) 90 % (31-73) Lymphocytes (%) (Auto) 7 % (24-48) Monocytes (%) (Auto) 3 % (0-9) Eosinophils (%) (Auto) 0 % (0-3) Basophils (%) (Auto) 0 % (0-3) Neutrophils # (Auto) 7.6 x10^3uL (1.8-7.7) Lymphocytes # (Auto) 0.6 x10^3/uL (1.0-4.8) Monocytes # (Auto) 0.3 x10^3/uL (0.0-1.1) Eosinophils # (Auto) 0.0 x10^3/uL (0.0-0.7) Basophils # (Auto) 0.0 x10^3/uL (0.0-0.2) Sodium Level 143 mmol/L (136-145) Potassium Level 4.2 mmol/L (3.5-5.1) Chloride Level 107 mmol/L (98-107) Carbon Dioxide Level 23 mmol/L (21-32) Anion Gap 13 (6-14) Blood Urea Nitrogen 100 mg/dL (7-20) Creatinine 4.2 mg/dL (0.6-1.0) Estimated GFR (Cockcroft-Gault) 10.6 Glucose Level 180 mg/dL (70-99) Calcium Level 7.3 mg/dL (8.5-10.1) Magnesium Level 2.6 mg/dL (1.8-2.4) Microbiology 02/12/18 Blood Culture - Preliminary, Resulted NO GROWTH AFTER 1 DAY 02/10/18 - Final, Complete 02/10/18 - Final, Complete 02/10/18 - Final, Complete 02/10/18 Gram Stain Evaluation - Final, Complete 02/10/18 Sputum Culture - Final, Complete 02/10/18 Sputum Result 1 - Final, Complete Medications Current Medications Albuterol/ Ipratropium (Duoneb) 3 ml 1X ONCE NEB Last administered on at 17:14; Start 02/08/18 at 16:00; Stop 02/08/18 at 16:01; Status DC Vancomycin HCl (Vanco Per Pharmacy) 1 each PRN DAILY PRN MC SEE COMMENTS Last administered on 02/09/18at 08:59; Start 02/08/18 at 16:15; Stop 02/10/18 at 09 :07; Status DC Piperacillin Sod/ Tazobactam Sod (Zosyn Per Pharmacy) 1 each PRN DAILY PRN MC SEE COMMENTS; Start 02/08/18 at 16:15; Stop 02/12/18 at 07:24; Status DC Vancomycin HCl 1.75 gm/Sodium Chloride 500 ml @ 250 mls/hr 1X ONCE IV Last administered on 02/08/18at 16:36; Start 02/08/18 at 17:00; Stop 02/08/18 at 18 :59; Status DC Piperacillin Sod/ Tazobactam Sod 3.375 gm/Sodium Chloride 50 ml @ 100 mls/hr 1X ONCE IV Last administered on 02/08/18at 16:36; Start 02/08/18 at 16:30; Stop 02/08/18 at 16:59; Status DC Furosemide (Lasix) 20 mg 1X ONCE IVP Last administered on 02/08/18at 16:36; Start 02/08/18 at 16:30; Stop 02/08/18 at 16:31; Status DC Aspirin (Children'S Aspirin) 324 mg 1X ONCE PO Last administered on at 16:36; Start 02/08/18 at 16:30; Stop 02/08/18 at 16:31; Status DC Furosemide (Lasix) 20 mg 1X ONCE IVP Last administered on 02/08/18at 18:07; Start 02/08/18 at 17:00; Stop 02/08/18 at 17:01; Status DC Ondansetron HCl (Zofran) 4 mg 1X ONCE IV Last administered on 02/08/18at 17:00 ; Start 02/08/18 at 17:00; Stop 02/08/18 at 17:01; Status DC Ondansetron HCl (Zofran) 4 mg STK-MED ONCE .ROUTE ; Start 02/08/18 at 16:51; Stop 02/08/18 at 16:52; Status DC Heparin Sodium/ Dextrose 500 ml @ 0 mls/hr CONT PRN IV SEE I/O RECORD; Start 02/08/18 at 17:30; Status UNV Info (Anti-Coagulation Monitoring By Pharmacy) 1 each PRN DAILY PRN MC SEE COMMENTS Last administered on 02/11/18at 12:25; Start 02/08/18 at 17:30; Stop 02/13/18 at 09:17; Status DC Heparin Sodium/ Dextrose 500 ml @ 0 mls/hr CONT PRN IV SEE I/O RECORD Last administered on 02/12/18at 19:46; Start 02/08/18 at 17:30; Stop 02/13/18 at 08 :22; Status DC Heparin Sodium (Porcine) (Heparin Sodium) 1,800 unit PRN Q6HRS PRN IV FOR UFH LEVEL LESS THAN 0.2 Last administered on 02/08/18at 20:10; Start 02/08/18 at 17 :30; Stop 02/13/18 at 08:22; Status DC Ondansetron HCl (Zofran) 4 mg 1X PRN PRN IV NAUSEA/VOMITING; Start 02/08/18 at 18:00; Stop 02/09/18 at 09:06; Status DC Piperacillin Sod/ Tazobactam Sod 3.375 gm/Sodium Chloride 50 ml @ 100 mls/hr Q6HRS IV Last administered on 02/11/18at 05:37; Start 02/09/18 at 00:00; Stop 02/11/18 at 07:14; Status DC Vancomycin HCl 1 gm/Sodium Chloride 250 ml @ 250 mls/hr Q24H IV Last administered on 02/09/18at 16:30; Start 02/09/18 at 16:30; Stop 02/10/18 at 09 :07; Status DC Vancomycin HCl (Vancomycin Trough Level) 1 each 1X ONCE MC ; Start 02/10/18 at 16:00; Stop 02/10/18 at 16:00; Status DC Magnesium Sulfate/ Dextrose 100 ml @ 25 mls/hr 1X ONCE IV Last administered on 02/08/18at 22:03; Start 02/08/18 at 22:00; Stop 02/09/18 at 01:59; Status DC Aspirin (Radha Aspirin) 325 mg DAILY PO ; Start 02/09/18 at 09:00; Stop at 10:16; Status DC Atorvastatin Calcium (Lipitor) 10 mg HS PO ; Start 02/09/18 at 21:00; Stop at 21:00; Status DC Clonidine HCl (Catapres) 0.1 mg QHS PO Last administered on 02/08/18at 22:05; Start 02/08/18 at 22:00; Stop 02/09/18 at 10:16; Status DC Docusate Sodium (Colace) 100 mg BID PO ; Start 02/09/18 at 09:00; Stop at 10:16; Status DC Gabapentin (Neurontin) 300 mg TID PO Last administered on 02/08/18at 22:08; Start 02/08/18 at 22:20; Stop 02/09/18 at 10:16; Status DC Labetalol HCl (Normodyne Iv Push) 10 mg PRN Q2HR PRN IVP HYPERTENSION, SEE COMMENTS Last administered on 02/12/18at 15:12; Start 02/08/18 at 21:30; Stop 02/12/18 at 16:22; Status DC Lorazepam (Ativan) 1 mg PRN Q4HRS PRN IV ANXIETY / AGITATION Last administered on 02/09/18at 01:49; Start 02/08/18 at 21:30 Morphine Sulfate (Morphine Sulfate) 4 mg PRN Q4HRS PRN IV PAIN Last administered on 02/09/18at 19:45; Start 02/08/18 at 21:30 Acetaminophen (Tylenol Supp) 325 mg PRN Q6HRS PRN OR MILD PAIN / TEMP Last administered on 02/09/18at 09:30; Start 02/09/18 at 06:45 Ipratropium [place] (Atrovent) 0.5 mg RTQID NEB Last administered on at 19:59; Start 02/09/18 at 08:00 Budesonide (Pulmicort) 0.5 mg RTBID NEB Last administered on 02/14/18at 07:29; Start 02/09/18 at 08:00 Famotidine (Pepcid Vial) 20 mg QHS IVP Last administered on 02/12/18at 21:56; Start 02/09/18 at 21:00; Stop 02/13/18 at 14:47; Status DC Acetaminophen (Tylenol) 500 mg PRN Q6HRS PRN PO FEVER/KUO Last administered on 02/14/18at 00:40; Start 02/09/18 at 09:00 Ondansetron HCl (Zofran) 4 mg PRN Q6HRS PRN IV NAUSEA/VOMITING; Start at 09:00 Ondansetron HCl (Zofran Odt) 4 mg PRN Q6HRS PRN PO NAUSEA/VOMITING; Start at 09:00 Acetaminophen/ Hydrocodone Bitart (Lortab 10/325) 1 tab PRN Q4HRS PRN PO MODERATE PAIN; Start 02/09/18 at 09:00 Magnesium Hydroxide (Milk Of Magnesia) 400 mg DAILY PO Last administered on at 08:18; Start 02/09/18 at 09:00 Oxycodone HCl (OxyCONTIN) 10 mg BID PO ; Start 02/09/18 at 09:00; Stop at 10:16; Status DC Oxycodone/ Acetaminophen (Percocet 5/325) 1 tab BID PO ; Start 02/09/18 at 09: 00; Stop 02/09/18 at 10:16; Status DC Tramadol HCl (Ultram) 50 mg PRN DAILY PRN PO MILD PAIN; Start 02/09/18 at 09: 00 Non-Formulary Medication (Acetaminophen ) 1 tab BID PO ; Start 02/09/18 at 09: 00; Stop 02/09/18 at 09:12; Status DC Non-Formulary Medication (Albuterol Sulfate (Albuterol Sulfate Neb Soln)) 1 vial QID NEB ; Start 02/09/18 at 09:00; Stop 02/09/18 at 09:22; Status DC Citalopram Hydrobromide (CeleXA) 40 mg QHS PO ; Start 02/09/18 at 21:00; Stop 02/09/18 at 21:00; Status DC Hydrochlorothiazide (Microzide) 12.5 mg QHS PO ; Start 02/09/18 at 21:00; Stop 02/09/18 at 21:00; Status DC Non-Formulary Medication (Magnesium Oxide ) 1 tab DAILY PO ; Start 02/09/18 at 09:00; Stop 02/09/18 at 09:14; Status DC Non-Formulary Medication (Multivitamin (Multivitamins)) 1 tab DAILY PO ; Start 02/09/18 at 09:00; Stop 02/09/18 at 09:14; Status DC Nicotine (Nicoderm Cq 14mg) 1 patch DAILY TD Last administered on 02/14/18at 08 :08; Start 02/09/18 at 10:00 Ondansetron HCl (Zofran Odt) 4 mg Q6HRS PO Last administered on 02/14/18at 05: 52; Start 02/09/18 at 12:00 Non-Formulary Medication (Polyethylene Glycol 3350 (Miralax)) 1 packet DAILY PO ; Start 02/09/18 at 09:00; Stop 02/09/18 at 09:17; Status DC Quetiapine Fumarate (SEROquel) 25 mg QHS PO ; Start 02/09/18 at 21:00; Stop at 21:00; Status DC Labetalol HCl (Normodyne Iv Push) 10 mg PRN Q2HR PRN IVP HYPERTENSION, SEE COMMENTS; Start 02/09/18 at 09:00; Stop 02/09/18 at 09:06; Status DC Acetaminophen (Tylenol) 500 mg BID PO ; Start 02/09/18 at 10:00; Stop at 10:16; Status DC Magnesium Oxide (Magnesium Oxide) 400 mg DAILY PO Last administered on at 08:06; Start 02/09/18 at 10:00 Multivitamins (Thera M Plus) 1 tab DAILY PO ; Start 02/09/18 at 10:00; Stop at 10:16; Status DC Polyethylene Glycol (miraLAX PACKET) 17 gm DAILY PO ; Start 02/09/18 at 10:00; Stop 02/09/18 at 10:16; Status DC Albuterol Sulfate (Ventolin Neb Soln) 2.5 mg RTQID NEB Last administered on at 07:28; Start 02/09/18 at 12:00 Furosemide (Lasix) 60 mg 1X ONCE IVP Last administered on 02/09/18at 20:16; Start 02/09/18 at 20:00; Stop 02/09/18 at 20:01; Status DC Rocuronium [place] (Zemuron) 50 mg STK-MED ONCE .ROUTE ; Start 02/09/18 at 20: 23; Stop 02/09/18 at 20:24; Status DC Fentanyl Citrate 30 ml @ 0 mls/hr CONT PRN IV SEE PROTOCOL Last administered on 02/14/18at 03:12; Start 02/09/18 at 20:30 Propofol 100 ml @ 0 mls/hr CONT PRN IV SEE PROTOCOL Last administered on at 14:09; Start 02/09/18 at 20:30 Midazolam HCl 100 ml @ 5 mls/hr CONT PRN IV SEE I/O RECORD Last administered on 02/12/18at 03:38; Start 02/09/18 at 22:00; Stop 02/13/18 at 17:22; Status DC Norepinephrine Bitartrate 250 ml @ As Directed STK-MED ONCE IV ; Start at 02:33; Stop 02/10/18 at 02:35; Status DC Norepinephrine Bitartrate 250 ml @ 1.875 mls/ hr CONT PRN IV SEE I/O RECORD Last administered on 02/14/18at 00:38; Start 02/10/18 at 02:45 Methylprednisolone Sodium Succinate (SOLU-Medrol 40MG VIAL) 40 mg Q12HR IV Last administered on 02/14/18at 08:06; Start 02/10/18 at 09:00 Piperacillin Sod/ Tazobactam Sod 2.25 gm/Sodium Chloride 50 ml @ 100 mls/hr Q6HRS IV Last administered on 02/12/18at 05:47; Start 02/11/18 at 12:00; Stop 02/12/18 at 07:24; Status DC Propofol (Diprivan) 200 mg STK-MED ONCE IV ; Start 02/09/18 at 07:00; Stop at 07:43; Status DC Succinylcholine Chloride (Anectine) 200 mg STK-MED ONCE .ROUTE ; Start at 07:00; Stop 02/11/18 at 07:43; Status DC Phenylephrine HCl (PHENYLEPHRINE in 0.9% NACL PF) 1 mg STK-MED ONCE IV ; Start 02/09/18 at 07:00; Stop 02/11/18 at 07:43; Status DC Ephedrine Sulfate (ePHEDrine PF IN SALINE SYRINGE) 50 mg STK-MED ONCE IV ; Start 02/09/18 at 07:00; Stop 02/11/18 at 07:43; Status DC Rocuronium [place] (Zemuron) 50 mg STK-MED ONCE .ROUTE ; Start 02/09/18 at 21: 00; Stop 02/11/18 at 08:22; Status DC Linezolid/Dextrose 300 ml @ 300 mls/hr Q12HR IV Last administered on at 08:08; Start 02/12/18 at 09:00 Micafungin Sodium 100 mg/Dextrose 100 ml @ 100 mls/hr Q24H IV Last administered on 02/14/18at 09:33; Start 02/12/18 at 10:00 Cefepime HCl (Maxipime) 1 gm Q12HR IVP Last administered on 02/13/18at 08:19; Start 02/12/18 at 09:00; Stop 02/13/18 at 10:56; Status DC Atorvastatin Calcium (Lipitor) 10 mg QHS PO Last administered on 02/13/18at 23: 16; Start 02/12/18 at 21:00 Labetalol HCl (Normodyne Iv Push) 20 mg PRN Q2HR PRN IVP HYPERTENSION, SEE COMMENTS Last administered on 02/13/18at 05:34; Start 02/12/18 at 16:15 Aspirin (Children'S Aspirin) 81 mg DAILYWBKFT PO Last administered on at 08:06; Start 02/12/18 at 16:15 Metoprolol Tartrate (Lopressor) 25 mg BID PO Last administered on 02/13/18at 23 :17; Start 02/13/18 at 11:00 Cefepime HCl (Maxipime) 1 gm QHS IVP ; Start 02/13/18 at 21:00; Stop 02/13/18 at 21:00; Status DC Lidocaine/Sodium Bicarbonate (Buffered Lidocaine 1%) 3 ml STK-MED ONCE .ROUTE ; Start 02/13/18 at 13:32; Stop 02/13/18 at 13:33; Status DC Heparin Sodium (Porcine) (Heparin Sodium) 10,000 unit STK-MED ONCE .ROUTE ; Start 02/13/18 at 13:32; Stop 02/13/18 at 13:33; Status DC Midazolam HCl (Versed) 5 mg STK-MED ONCE .ROUTE ; Start 02/13/18 at 14:04; Stop 02/13/18 at 14:05; Status DC Midazolam HCl (Versed) 5 mg 1X ONCE IV Last administered on 02/13/18at 14:10; Start 02/13/18 at 14:15; Stop 02/13/18 at 14:16; Status DC Lidocaine/Sodium Bicarbonate (Buffered Lidocaine 1%) 4 ml 1X ONCE INJ Last administered on 02/13/18at 14:57; Start 02/13/18 at 14:45; Stop 02/13/18 at 14 :52; Status DC Heparin Sodium (Porcine) (Heparin Sodium) 2,200 unit 1X ONCE INT CAT Last administered on 02/13/18at 15:02; Start 02/13/18 at 14:45; Stop 02/13/18 at 14 :52; Status DC Pantoprazole Sodium (PROTONIX VIAL for IV PUSH) 40 mg BIDAC IVP Last administered on 02/14/18at 08:05; Start 02/13/18 at 16:30 Heparin Sodium (Porcine) (Heparin Sodium) 2,500 unit 1X ONCE INT CAT ; Start 02/13/18 at 15:00; Stop 02/13/18 at 15:03; Status DC Meropenem 500 mg/ Sodium Chloride 50 ml @ 100 mls/hr Q24H IV Last administered on 02/14/18at 08:07; Start 02/13/18 at 16:00 Midazolam HCl 100 ml @ 5 mls/hr CONT PRN IV SEE I/O RECORD Last administered on 02/13/18at 17:38; Start 02/13/18 at 15:15 Midazolam HCl (Versed) 5 mg STK-MED ONCE .ROUTE ; Start 02/13/18 at 15:15; Stop 02/13/18 at 15:16; Status DC Clopidogrel Bisulfate (Plavix) 75 mg DAILYWBKFT PO Last administered on at 08:06; Start 02/13/18 at 16:00 Sodium Chloride 1,000 ml @ 1,000 mls/hr Q1H PRN IV hypotension; Start at 19:27; Stop 02/14/18 at 01:26; Status DC Albumin Human 200 ml @ 200 mls/hr 1X PRN PRN IV Hypotension; Start 02/13/18 at 19:30; Stop 02/14/18 at 01:29; Status DC Sodium Chloride 1,000 ml @ 400 mls/hr Q2H30M PRN IV PATENCY; Start 02/13/18 at 19:27; Stop 02/14/18 at 07:26; Status DC Info (PHARMACY MONITORING -- do not chart) 1 each PRN DAILY PRN MC SEE COMMENTS ; Start 02/13/18 at 19:30 Info (PHARMACY MONITORING -- do not chart) 1 each PRN DAILY PRN MC SEE COMMENTS ; Start 02/13/18 at 19:30; Status UNV Sodium Chloride 1,000 ml @ 1,000 mls/hr Q1H PRN IV hypotension; Start at 08:16; Stop 02/14/18 at 14:15 Sodium Chloride 1,000 ml @ 400 mls/hr Q2H30M PRN IV PATENCY; Start 02/14/18 at 08:16; Stop 02/14/18 at 20:15 Info (PHARMACY MONITORING -- do not chart) 1 each PRN DAILY PRN MC SEE COMMENTS ; Start 02/14/18 at 08:30; Status UNV Midazolam HCl (Versed) 5 mg STK-MED ONCE .ROUTE ; Start 02/13/18 at 15:30; Stop 02/14/18 at 09:00; Status DC Active Scripts Active Percocet 5-325 Mg Tablet (Oxycodone/Acetaminophen) 1 Each Tablet 1 Tab PO BID 3 Days Reported Zofran (Ondansetron Hcl) 4 Mg Tablet 1 Tab PO Q6HRS Milk Of Magnesia (Magnesium Hydroxide) 400 Mg/5 Ml Oral.susp 400 Mg PO Acetaminophen 500 Mg Tablet 1 Tab PO BID Clonidine Hcl 0.1 Mg Tablet 1 Tab PO QHS Tramadol Hcl 50 Mg Tablet 50 Mg PO DAILY PRN Hydralazine Hcl 20 Mg/1 Ml Vial 20 Mg IJ Gabapentin (Gabapentin) 300 Mg Capsule 300 Mg PO TID Acidophilus (Lactobacillus Acidophilus) 1 Each Capsule 1 Each PO Atorvastatin Calcium 10 Mg Tablet 1 Tab PO DAILY Vitamin C (Ascorbic Acid) 500 Mg Tablet.er 500 Mg PO Aspirin 325 Mg Tablet 1 Tab PO DAILY Colace (Docusate Sodium) 100 Mg Capsule 1 Cap PO BID Magnesium Oxide 400 Mg Tablet 1 Tab PO DAILY Multivitamins (Multivitamin) 1 Each Tablet 1 Tab PO DAILY NICODERM CQ 14mg (Nicotine) 1 Each Patch.td24 1 Patch TP DAILY Miralax (Polyethylene Glycol 3350) 17 Gm Powd.pack 1 Packet PO DAILY Albuterol Sulfate Neb Soln (Albuterol Sulfate) 0.63 Mg/3 Ml Vial.neb 1 Vial NEB QID Prednisone 20 Mg Tablet 1 Tab PO DAILY Seroquel (Quetiapine Fumarate) 25 Mg Tablet 1 Tab PO QHS Hydrochlorothiazide Tablet (Hydrochlorothiazide) 12.5 Mg Tablet 1 Tab PO QHS Lexapro (Escitalopram Oxalate) 20 Mg Tablet 1 Tab PO QHS Hydrocodone-Apap 10-325 (Hydrocodone Bit/Acetaminophen) 1 Each Tablet 1 Tab PO PRN Q4HRS Oxycontin (Oxycodone HCl) 10 Mg Tab.er.12h 10 Mg PO BID Vitals/I & O Vital Sign - Last 24 Hours 02/13/18 02/13/18 02/13/18 02/13/18 10:00 10:15 10:45 11:00 Pulse 114 114 100 Resp 26 24 B/P (MAP) 166/97 (120) 166/97 153/84 (107) Pulse Ox 95 95 O2 Delivery Ventilator Ventilator Ventilator 02/13/18 02/13/18 02/13/18 02/13/18 12:00 12:00 12:29 13:00 Temp 98.0 98.0 Pulse 108 116 Resp 34 33 B/P (MAP) 170/98 (122) 154/80 (104) Pulse Ox 96 96 95 O2 Delivery Mechanical Ventilator Ventilator Ventilator Ventilator 02/13/18 02/13/18 02/13/18 02/13/18 14:00 15:00 15:30 16:00 Temp 99.1 99.1 Pulse 114 122 120 112 Resp 35 31 23 B/P (MAP) 119/74 (89) 154/84 (107) 86/59 (68) 97/62 (74) Pulse Ox 93 95 100 O2 Delivery Ventilator Ventilator Ventilator 02/13/18 02/13/18 02/13/18 02/13/18 16:00 16:10 16:15 16:30 Pulse 104 102 B/P (MAP) 108/61 (77) 69/49 (56) Pulse Ox 95 O2 Delivery Mechanical Ventilator Ventilator 02/13/18 02/13/18 02/13/18 02/13/18 16:45 17:00 17:15 17:30 Pulse 102 118 124 128 Resp 29 B/P (MAP) 92/65 (74) 156/88 (110) 168/87 (114) 170/86 (114) Pulse Ox 96 O2 Delivery Ventilator 02/13/18 02/13/18 02/13/18 02/13/18 17:45 18:00 18:15 19:00 Pulse 132 132 112 115 Resp 32 24 B/P (MAP) 174/82 (112) 137/74 (95) 92/53 (66) 115/64 (81) Pulse Ox 93 95 O2 Delivery Ventilator Ventilator 02/13/18 02/13/18 02/13/18 02/13/18 20:00 20:00 20:00 20:01 Temp 101.4 101.4 Pulse 121 Resp 27 B/P (MAP) 139/69 (92) Pulse Ox 94 95 95 O2 Delivery Mechanical Ventilator Ventilator Ventilator Ventilator 02/13/18 02/13/18 02/13/18 02/13/18 21:03 21:15 22:00 23:00 Temp 97.7 97.7 Pulse 122 121 120 114 Resp 25 23 24 23 B/P (MAP) 80/54 (63) 87/65 (72) 115/64 (81) 140/67 (91) Pulse Ox 93 95 97 O2 Delivery Ventilator Ventilator 02/13/18 02/13/18 02/13/18 02/13/18 23:15 23:17 23:30 23:45 Pulse 118 118 122 120 B/P (MAP) 140/67 (91) 140/67 158/77 (104) 137/81 (99) 02/13/18 02/14/18 02/14/18 02/14/18 23:47 00:00 00:00 00:15 Temp 100.7 100.7 Pulse 120 118 Resp 24 B/P (MAP) 112/69 (83) 137/71 (93) Pulse Ox 95 100 O2 Delivery Ventilator Mechanical Ventilator Ventilator 02/14/18 02/14/18 02/14/18 02/14/18 00:30 00:45 01:00 01:15 Pulse 118 114 110 110 Resp 25 B/P (MAP) 129/76 (93) 124/70 (88) 109/64 (79) 114/69 (84) Pulse Ox 96 O2 Delivery Ventilator 02/14/18 02/14/18 02/14/18 02/14/18 01:30 02:00 02:14 02:15 Pulse 106 105 98 Resp 23 B/P (MAP) 108/70 (83) 97/63 (74) 86/50 (62) Pulse Ox 97 96 O2 Delivery Ventilator Ventilator 02/14/18 02/14/18 02/14/18 02/14/18 02:30 03:00 03:15 03:30 Pulse 94 86 86 83 Resp 24 B/P (MAP) 81/54 (63) 98/55 (69) 57/42 (47) 81/56 (64) Pulse Ox 97 O2 Delivery Ventilator 02/14/18 02/14/18 02/14/18 02/14/18 03:50 04:00 04:41 05:00 Temp 98.6 98.6 Pulse 83 79 Resp 25 23 B/P (MAP) 100/58 (72) 100/61 (74) Pulse Ox 99 98 99 O2 Delivery Mechanical Ventilator Ventilator Ventilator Ventilator 02/14/18 02/14/18 02/14/18 02/14/18 06:00 07:00 07:29 08:00 Temp 98.1 98.1 Pulse 79 86 92 Resp 26 17 23 B/P (MAP) 114/63 (80) 111/65 (80) 68/46 (53) Pulse Ox 98 97 97 97 O2 Delivery Ventilator Ventilator Ventilator Ventilator 02/14/18 02/14/18 02/14/18 08:00 08:48 09:00 Pulse 95 Resp 17 B/P (MAP) 107/70 (82) Pulse Ox 98 96 O2 Delivery Mechanical Ventilator Ventilator Ventilator Intake and Output 02/13/18 02/13/18 02/14/18 15:00 23:00 07:00 Intake Total 661.4 ml 433.28 ml 2446 ml Output Total 475 ml 230 ml 410 ml Balance 186.4 ml 203.28 ml 2036 ml Nutrition Consultation Dietary Evaluation: Recommendations by RD: Increase Calorie Intake Comments: REC TF per following: Jevity 1.5@goal rate 45 ml/hr w/25 ml water flushes q8 hrs or flushes per MD Expected Outcomes/Goals: TF for nutrition needs while pt remains intubated Interpretation of weight loss: >10% in 6 months Malnutrition Findings: Body Fat Depletion (Non Severe: Mild Depletion Weight Status: Appropriate CASTLE,NIAL K III DO Feb 14, 2018 09:53
--- NOTE | 2018-02-14 10:26 | PDOC ---
PULMONARY PROGRESS NOTES Subjective YESTERDAY AFTERNOON PT DETERIORATED NOW BACK ON VENT AND SEDATED BACK ON PRESSORS Vitals Vital Signs Date Time Temp Pulse Resp B/P (MAP) Pulse Ox O2 Delivery O2 Flow Rate FiO2 02/14/18 10:00 121 26 166/83 (110) 92 Ventilator 02/14/18 08:00 98.1 98.1 Lungs: Crackles Cardiovascular: S1, S2 Abdomen: Soft, Non-tender Extremities: No Edema Labs Laboratory Tests Test 02/13/18 05:45 02/13/18 09:30 02/13/18 13:00 02/13/18 14:30 White Blood Count 10.2 x10^3/uL (4.0-11.0) Red Blood Count 3.80 x10^6/uL (3.50-5.40) Hemoglobin 11.7 g/dL (12.0-15.5) Hematocrit 34.6 % (36.0-47.0) Mean Corpuscular Volume 91 fL (79-100) Mean Corpuscular Hemoglobin 31 pg (25-35) Mean Corpuscular Hemoglobin Concent 34 g/dL (31-37) Red Cell Distribution Width 17.2 % (11.5-14.5) Platelet Count 172 x10^3/uL (140-400) Neutrophils (%) (Auto) 88 % (31-73) Lymphocytes (%) (Auto) 7 % (24-48) Monocytes (%) (Auto) 5 % (0-9) Eosinophils (%) (Auto) 0 % (0-3) Basophils (%) (Auto) 0 % (0-3) Neutrophils # (Auto) 9.0 x10^3uL (1.8-7.7) Lymphocytes # (Auto) 0.7 x10^3/uL (1.0-4.8) Monocytes # (Auto) 0.5 x10^3/uL (0.0-1.1) Eosinophils # (Auto) 0.0 x10^3/uL (0.0-0.7) Basophils # (Auto) 0.0 x10^3/uL (0.0-0.2) Segmented Neutrophils % 65 % (35-66) Band Neutrophils % 26 % (0-9) Lymphocytes % 5 % (24-48) Monocytes % 4 % (0-10) Nucleated Red Blood Cells 1 Platelet Estimate Adequate (ADEQUATE) Anisocytosis Slight Spherocytes Occ Ovalocytes Few [place] Cells Few Heparin Anti-Xa Act, Unfractionated 0.23 IU/mL (0.30-0.70) 0.41 IU/mL (0.30-0.70) Sodium Level 146 mmol/L (136-145) Potassium Level 3.6 mmol/L (3.5-5.1) Chloride Level 108 mmol/L (98-107) Carbon Dioxide Level 20 mmol/L (21-32) Anion Gap 18 (6-14) Blood Urea Nitrogen 124 mg/dL (7-20) Creatinine 5.0 mg/dL (0.6-1.0) Estimated GFR (Cockcroft-Gault) 8.7 BUN/Creatinine Ratio 25 (6-20) Glucose Level 187 mg/dL (70-99) Calcium Level 7.4 mg/dL (8.5-10.1) Total Bilirubin 0.3 mg/dL (0.2-1.0) Aspartate Amino Transf (AST/SGOT) 87 U/L (15-37) Alanine Aminotransferase (ALT/SGPT) 70 U/L (14-59) Alkaline Phosphatase 62 U/L (46-116) Total Protein 5.8 g/dL (6.4-8.2) Albumin 2.0 g/dL (3.4-5.0) Albumin/Globulin Ratio 0.5 (1.0-1.7) O2 Saturation 93 % (92-99) 92 % (92-99) Arterial Blood pH 7.47 (7.35-7.45) 7.34 (7.35-7.45) Arterial Blood pCO2 at Patient Temp 26 mmHg (35-46) 36 mmHg (35-46) Arterial Blood pO2 at Patient Temp 69 mmHg (65-108) 74 mmHg (65-108) Arterial Blood HCO3 18 mmol/L (21-28) 19 mmol/L (21-28) Arterial Blood Base Excess -4 mmol/L (-3-3) -6 mmol/L (-3-3) FiO2 40 40 Hepatitis B Surface Antigen Nonreactive (Nonreactive) Hepatitis B Surface Antibody, Quant <3.1 mIU/mL (Immunity>9.9) Arterial Blood pH (Temp corrected) 7.31 Arterial Blood pCO2 (Temp correct) 40 mmHg Arterial Blood pO2 (Temp corrected) 85 mmHg Test 02/13/18 19:10 02/14/18 05:00 Urine Collection Type Unknown Urine Color Yellow Urine Clarity Cloudy Urine pH 5.5 Urine Specific [place] 1.015 Urine Protein 100 mg/dL (NEG-TRACE) Urine Glucose (UA) Negative mg/dL (NEG) Urine Ketones (Stick) Negative mg/dL (NEG) Urine Blood Small (NEG) Urine Nitrite Negative (NEG) Urine Bilirubin Negative (NEG) Urine Urobilinogen Dipstick 0.2 mg/dL (0.2 mg/dL) Urine Leukocyte Esterase Negative (NEG) Urine RBC Occ /HPF (0-2) Urine WBC Occ /HPF (0-4) Urine Squamous Epithelial Cells Few /LPF Urine Amorphous Sediment Present /HPF Urine Bacteria 0 /HPF (0-FEW) Urine Granular Casts Few /HPF Urine Mucus Mod /LPF White Blood Count 8.5 x10^3/uL (4.0-11.0) Red Blood Count 2.66 x10^6/uL (3.50-5.40) Hemoglobin 8.2 g/dL (12.0-15.5) Hematocrit 23.9 % (36.0-47.0) Mean Corpuscular Volume 90 fL (79-100) Mean Corpuscular Hemoglobin 31 pg (25-35) Mean Corpuscular Hemoglobin Concent 34 g/dL (31-37) Red Cell Distribution Width 16.7 % (11.5-14.5) Platelet Count 137 x10^3/uL (140-400) Neutrophils (%) (Auto) 90 % (31-73) Lymphocytes (%) (Auto) 7 % (24-48) Monocytes (%) (Auto) 3 % (0-9) Eosinophils (%) (Auto) 0 % (0-3) Basophils (%) (Auto) 0 % (0-3) Neutrophils # (Auto) 7.6 x10^3uL (1.8-7.7) Lymphocytes # (Auto) 0.6 x10^3/uL (1.0-4.8) Monocytes # (Auto) 0.3 x10^3/uL (0.0-1.1) Eosinophils # (Auto) 0.0 x10^3/uL (0.0-0.7) Basophils # (Auto) 0.0 x10^3/uL (0.0-0.2) Sodium Level 143 mmol/L (136-145) Potassium Level 4.2 mmol/L (3.5-5.1) Chloride Level 107 mmol/L (98-107) Carbon Dioxide Level 23 mmol/L (21-32) Anion Gap 13 (6-14) Blood Urea Nitrogen 100 mg/dL (7-20) Creatinine 4.2 mg/dL (0.6-1.0) Estimated GFR (Cockcroft-Gault) 10.6 Glucose Level 180 mg/dL (70-99) Calcium Level 7.3 mg/dL (8.5-10.1) Magnesium Level 2.6 mg/dL (1.8-2.4) Laboratory Tests Test 02/13/18 13:00 02/13/18 14:30 02/13/18 19:10 02/14/18 05:00 Heparin Anti-Xa Act, Unfractionated 0.41 IU/mL (0.30-0.70) Hepatitis B Surface Antigen Nonreactive (Nonreactive) Hepatitis B Surface Antibody, Quant <3.1 mIU/mL (Immunity>9.9) O2 Saturation 92 % (92-99) Arterial Blood pH 7.34 (7.35-7.45) Arterial Blood pH (Temp corrected) 7.31 Arterial Blood pCO2 at Patient Temp 36 mmHg (35-46) Arterial Blood pCO2 (Temp correct) 40 mmHg Arterial Blood pO2 at Patient Temp 74 mmHg (65-108) Arterial Blood pO2 (Temp corrected) 85 mmHg Arterial Blood HCO3 19 mmol/L (21-28) Arterial Blood Base Excess -6 mmol/L (-3-3) FiO2 40 Urine Collection Type Unknown Urine Color Yellow Urine Clarity Cloudy Urine pH 5.5 Urine Specific [place] 1.015 Urine Protein 100 mg/dL (NEG-TRACE) Urine Glucose (UA) Negative mg/dL (NEG) Urine Ketones (Stick) Negative mg/dL (NEG) Urine Blood Small (NEG) Urine Nitrite Negative (NEG) Urine Bilirubin Negative (NEG) Urine Urobilinogen Dipstick 0.2 mg/dL (0.2 mg/dL) Urine Leukocyte Esterase Negative (NEG) Urine RBC Occ /HPF (0-2) Urine WBC Occ /HPF (0-4) Urine Squamous Epithelial Cells Few /LPF Urine Amorphous Sediment Present /HPF Urine Bacteria 0 /HPF (0-FEW) Urine Granular Casts Few /HPF Urine Mucus Mod /LPF White Blood Count 8.5 x10^3/uL (4.0-11.0) Red Blood Count 2.66 x10^6/uL (3.50-5.40) Hemoglobin 8.2 g/dL (12.0-15.5) Hematocrit 23.9 % (36.0-47.0) Mean Corpuscular Volume 90 fL (79-100) Mean Corpuscular Hemoglobin 31 pg (25-35) Mean Corpuscular Hemoglobin Concent 34 g/dL (31-37) Red Cell Distribution Width 16.7 % (11.5-14.5) Platelet Count 137 x10^3/uL (140-400) Neutrophils (%) (Auto) 90 % (31-73) Lymphocytes (%) (Auto) 7 % (24-48) Monocytes (%) (Auto) 3 % (0-9) Eosinophils (%) (Auto) 0 % (0-3) Basophils (%) (Auto) 0 % (0-3) Neutrophils # (Auto) 7.6 x10^3uL (1.8-7.7) Lymphocytes # (Auto) 0.6 x10^3/uL (1.0-4.8) Monocytes # (Auto) 0.3 x10^3/uL (0.0-1.1) Eosinophils # (Auto) 0.0 x10^3/uL (0.0-0.7) Basophils # (Auto) 0.0 x10^3/uL (0.0-0.2) Sodium Level 143 mmol/L (136-145) Potassium Level 4.2 mmol/L (3.5-5.1) Chloride Level 107 mmol/L (98-107) Carbon Dioxide Level 23 mmol/L (21-32) Anion Gap 13 (6-14) Blood Urea Nitrogen 100 mg/dL (7-20) Creatinine 4.2 mg/dL (0.6-1.0) Estimated GFR (Cockcroft-Gault) 10.6 Glucose Level 180 mg/dL (70-99) Calcium Level 7.3 mg/dL (8.5-10.1) Magnesium Level 2.6 mg/dL (1.8-2.4) Medications Active Scripts Medications Dose Route/Sig Max Daily Dose Days Date Category Zofran (Ondansetron Hcl) 4 Mg Tablet 1 Tab PO Q6HRS 09/20/17 Reported Milk Of Magnesia (Magnesium Hydroxide) 400 Mg/5 Ml Oral.susp 400 Mg PO 09/20/17 Reported Acetaminophen 500 Mg Tablet 1 Tab PO BID 09/20/17 Reported Clonidine Hcl 0.1 Mg Tablet 1 Tab PO QHS 09/20/17 Reported Tramadol Hcl 50 Mg Tablet 50 Mg PO DAILY PRN 09/20/17 Reported Hydralazine Hcl 20 Mg/1 Ml Vial 20 Mg IJ 09/20/17 Reported Gabapentin (Gabapentin) 300 Mg Capsule 300 Mg PO TID 09/20/17 Reported Acidophilus (Lactobacillus Acidophilus) 1 Each Capsule 1 Each PO 09/20/17 Reported Atorvastatin Calcium 10 Mg Tablet 1 Tab PO DAILY 09/20/17 Reported Vitamin C (Ascorbic Acid) 500 Mg Tablet.er 500 Mg PO 09/20/17 Reported Aspirin 325 Mg Tablet 1 Tab PO DAILY 09/20/17 Reported Colace (Docusate Sodium) 100 Mg Capsule 1 Cap PO BID 09/20/17 Reported Magnesium Oxide 400 Mg Tablet 1 Tab PO DAILY 09/20/17 Reported Multivitamins (Multivitamin) 1 Each Tablet 1 Tab PO DAILY 09/20/17 Reported NICODERM CQ 14mg (Nicotine) 1 Each Patch.td24 1 Patch TP DAILY 09/20/17 Reported Miralax (Polyethylene Glycol 3350) 17 Gm Powd.pack 1 Packet PO DAILY 09/20/17 Reported Albuterol Sulfate Neb Soln (Albuterol Sulfate) 0.63 Mg/3 Ml Vial.neb 1 Vial NEB QID 09/20/17 Reported Prednisone 20 Mg Tablet 1 Tab PO DAILY 09/20/17 Reported Percocet 5-325 Mg Tablet (Oxycodone/Acetaminophen) 1 Each Tablet 1 Tab PO BID 3 07/31/17 Rx Seroquel (Quetiapine Fumarate) 25 Mg Tablet 1 Tab PO QHS 10/21/16 Reported Hydrochlorothiazide Tablet (Hydrochlorothiazide) 12.5 Mg Tablet 1 Tab PO QHS 10/21/16 Reported Lexapro (Escitalopram Oxalate) 20 Mg Tablet 1 Tab PO QHS 10/21/16 Reported Hydrocodone-Apap 10-325 (Hydrocodone Bit/Acetaminophen) 1 Each Tablet 1 Tab PO PRN Q4HRS 10/21/16 Reported Oxycontin (Oxycodone HCl) 10 Mg Tab.er.12h 10 Mg PO BID 10/21/16 Reported Impression . IMPRESSION: 1. Acute hypoxemic respiratory failure secondary to acute diastolic congestive heart failure, non-ST elevation myocardial infarction/SEPSIS 2. Abnormal chest x-ray/CHF PNEUMONIA 3. Acute diastolic congestive heart failure. 4. Chronic obstructive pulmonary disease with mild acute exacerbation. 5. Acute bronchitis/ASPIRATION PNEUMONIA 6. Smoker. 7. Leukocytosis. 8. History of cerebrovascular accident. 9. hypotension 10. NSTEMI PER CARD 11. ACUTE RENAL FAILURE CXR 02/14 ET tube tip terminates approximately 4 cm above the sohan. Right IJ vascular catheter tip projects over the distal SVC. Enteric tube extends beyond the diaphragm tip is not visualized. Cardiomediastinal silhouette is stable. Left lung base parenchymal opacities are also stable. Patchy medial right lung base opacities are also grossly stable. No definite pleural effusion. No pneumothorax. Electronically signed by: Onur Valencia MD (02/13/2018 5:23 PM) [facility] Plan . CONTINUE SUPPORT WILL D/W CARD ANITBXN PER ID FOLLOW CARD INPUT ABG AND CXR NOTED HEPARIN STARTED ON HD YESTERDAY D/W SON AT BEDSIDE JUDE LAMAR MD Feb 14, 2018 10:26
[2018-02-14] MEDS: MIDAZOLAM 100mg/100ml NS BAG 100 ML IV PRN (10:45)
--- NOTE | 2018-02-14 11:41 | PDOC ---
Objective: Objective: No bleeding concerns per RN - has rectal bag now, dark output. Vital Signs: Vital Signs Date Time Temp Pulse Resp B/P (MAP) Pulse Ox O2 Delivery O2 Flow Rate FiO2 02/14/18 11:00 110 21 77/48 (58) 94 Ventilator 02/14/18 08:00 98.1 98.1 Labs: Laboratory Tests Test 02/13/18 13:00 02/13/18 14:30 02/13/18 19:10 02/14/18 05:00 Heparin Anti-Xa Act, Unfractionated 0.41 IU/mL Hepatitis B Surface Antigen Nonreactive Hepatitis B Surface Antibody, Quant <3.1 mIU/mL O2 Saturation 92 % Arterial Blood pH 7.34 Arterial Blood pH (Temp corrected) 7.31 Arterial Blood pCO2 at Patient Temp 36 mmHg Arterial Blood pCO2 (Temp correct) 40 mmHg Arterial Blood pO2 at Patient Temp 74 mmHg Arterial Blood pO2 (Temp corrected) 85 mmHg Arterial Blood HCO3 19 mmol/L Arterial Blood Base Excess -6 mmol/L FiO2 40 Urine Collection Type Unknown Urine Color Yellow Urine Clarity Cloudy Urine pH 5.5 Urine Specific [place] 1.015 Urine Protein 100 mg/dL Urine Glucose (UA) Negative mg/dL Urine Ketones (Stick) Negative mg/dL Urine Blood Small Urine Nitrite Negative Urine Bilirubin Negative Urine Urobilinogen Dipstick 0.2 mg/dL Urine Leukocyte Esterase Negative Urine RBC Occ /HPF Urine WBC Occ /HPF Urine Squamous Epithelial Cells Few /LPF Urine Amorphous Sediment Present /HPF Urine Bacteria 0 /HPF Urine Granular Casts Few /HPF Urine Mucus Mod /LPF White Blood Count 8.5 x10^3/uL Red Blood Count 2.66 x10^6/uL Hemoglobin 8.2 g/dL Hematocrit 23.9 % Mean Corpuscular Volume 90 fL Mean Corpuscular Hemoglobin 31 pg Mean Corpuscular Hemoglobin Concent 34 g/dL Red Cell Distribution Width 16.7 % Platelet Count 137 x10^3/uL Neutrophils (%) (Auto) 90 % Lymphocytes (%) (Auto) 7 % Monocytes (%) (Auto) 3 % Eosinophils (%) (Auto) 0 % Basophils (%) (Auto) 0 % Neutrophils # (Auto) 7.6 x10^3uL Lymphocytes # (Auto) 0.6 x10^3/uL Monocytes # (Auto) 0.3 x10^3/uL Eosinophils # (Auto) 0.0 x10^3/uL Basophils # (Auto) 0.0 x10^3/uL Sodium Level 143 mmol/L Potassium Level 4.2 mmol/L Chloride Level 107 mmol/L Carbon Dioxide Level 23 mmol/L Anion Gap 13 Blood Urea Nitrogen 100 mg/dL Creatinine 4.2 mg/dL Estimated GFR (Cockcroft-Gault) 10.6 Glucose Level 180 mg/dL Calcium Level 7.3 mg/dL Magnesium Level 2.6 mg/dL PE: GEN: intubated, dialyzing LUNGS: vent HEART: tachycardic ABD: soft - rectal tube bag w/ thin dark liquid NEURO/PSYCH: stirring A/P: Resp failure, NSTEMI, ANGELICA Abnormal tube feed residual - no recurrence of "wine-color" -h/o GI bleeding - lesion in hiatal hernia requiring epi/clip, GERD, esophageal ulcer -Hgb down to 8.2 from 11.7 -- Continue IV PPI and monitor. CONNOR MCNAIR Feb 14, 2018 11:41
[2018-02-14 12:59] LABS: HEMATOCRIT 22.2 % (36.0-47.0); HEMOGLOBIN 7.7 g/dL (12.0-15.5); RED BLOOD COUNT 2.48 x10^6/uL (3.50-5.40); RED CELL DISTRIBUTION WIDTH 16.8 % (11.5-14.5); WHITE BLOOD COUNT 10.3 x10^3/uL (4.0-11.0)
--- NOTE | 2018-02-14 17:33 | RAD ---
EXAM: AP View of the chest DATE: 02/14/2018 9:00 AM INDICATION: RESPIRATORY FAILURE COMPARISON: 02/13/2018 FINDINGS/ IMPRESSION: Dual-lumen and single-lumen right IJ vascular catheter tips project over the distal SVC. Enteric tube extends below the diaphragm the tip is not visualized. ET tube tip is approximate 5 cm above the sohan. Heart is not enlarged. Left lung base parenchymal airspace opacities are seen. Atherosclerotic calcifications of aorta are noted. No pleural effusion or pneumothorax. Base of neck surgical clips are seen. Electronically signed by: Onur Valencia MD (02/14/2018 5:30 PM) [facility]
--- NOTE | 2018-02-14 18:32 | PDOC ---
PROGRESS NOTES Subjective Subjective Patient seen and examined Objective Objective Vital Signs Date Time Temp Pulse Resp B/P (MAP) Pulse Ox O2 Delivery O2 Flow Rate FiO2 02/14/18 17:12 93 Ventilator 02/14/18 17:00 110 20 152/68 (96) 02/14/18 16:00 101.3 101.3 Intake and Output 02/14/18 07:00 Intake Total 3540.68 ml Output Total 1115 ml Balance 2425.68 ml IV Total 1239.68 ml Tube Feeding 1701 ml Other 600 ml Output Urine Total 815 ml Stool Total 300 ml Gastric Drainage Total 0 ml # Bowel Movements 2 Physical Exam Abdomen: Normal bowel sounds Heart: Regular rate General: Other (intubated) Lungs: Other (decreased breath sounds) Assessment Assessment Problems Medical Problems: (1) CHF (congestive heart failure) Status: Acute (2) Elevated troponin Status: Acute (3) Heart failure Status: Acute (4) Respiratory failure Status: Acute (5) Shortness of breath Status: Acute 1. Acute hypoxic respiratory failure: intubated with vent. Continue as per pulmonary. 2. Acute diastolic heart failure: multifactorial. Continue present treatment. 3. Severe multi-region peripheral vascular disease as above. We'll continue on present treatments at this time. On heparin. 4. NSTEMI: Peaked trop at 44. EF at 50% with possible mild hypokinesis in the distal septal wall. 5. PAFIB; mainly SR, but having short bursts of AFIB with RVR overnight. Uremia likely contributing factors. 6. History of CVA. 7. ANGELICA; renal function mildly improved with a creatinine of 4.2. nephrology following 8. Metabolic encephalopathy 9. Accelerated HTN; labile Comment Review of Relevant I have reviewed the following items pat (where applicable) has been applied. Labs Laboratory Tests Test 02/13/18 05:45 02/13/18 09:30 02/13/18 13:00 02/13/18 14:30 White Blood Count 10.2 x10^3/uL (4.0-11.0) Red Blood Count 3.80 x10^6/uL (3.50-5.40) Hemoglobin 11.7 g/dL (12.0-15.5) Hematocrit 34.6 % (36.0-47.0) Mean Corpuscular Volume 91 fL (79-100) Mean Corpuscular Hemoglobin 31 pg (25-35) Mean Corpuscular Hemoglobin Concent 34 g/dL (31-37) Red Cell Distribution Width 17.2 % (11.5-14.5) Platelet Count 172 x10^3/uL (140-400) Neutrophils (%) (Auto) 88 % (31-73) Lymphocytes (%) (Auto) 7 % (24-48) Monocytes (%) (Auto) 5 % (0-9) Eosinophils (%) (Auto) 0 % (0-3) Basophils (%) (Auto) 0 % (0-3) Neutrophils # (Auto) 9.0 x10^3uL (1.8-7.7) Lymphocytes # (Auto) 0.7 x10^3/uL (1.0-4.8) Monocytes # (Auto) 0.5 x10^3/uL (0.0-1.1) Eosinophils # (Auto) 0.0 x10^3/uL (0.0-0.7) Basophils # (Auto) 0.0 x10^3/uL (0.0-0.2) Segmented Neutrophils % 65 % (35-66) Band Neutrophils % 26 % (0-9) Lymphocytes % 5 % (24-48) Monocytes % 4 % (0-10) Nucleated Red Blood Cells 1 Platelet Estimate Adequate (ADEQUATE) Anisocytosis Slight Spherocytes Occ Ovalocytes Few Ayan Cells Few Heparin Anti-Xa Act, Unfractionated 0.23 IU/mL (0.30-0.70) 0.41 IU/mL (0.30-0.70) Sodium Level 146 mmol/L (136-145) Potassium Level 3.6 mmol/L (3.5-5.1) Chloride Level 108 mmol/L (98-107) Carbon Dioxide Level 20 mmol/L (21-32) Anion Gap 18 (6-14) Blood Urea Nitrogen 124 mg/dL (7-20) Creatinine 5.0 mg/dL (0.6-1.0) Estimated GFR (Cockcroft-Gault) 8.7 BUN/Creatinine Ratio 25 (6-20) Glucose Level 187 mg/dL (70-99) Calcium Level 7.4 mg/dL (8.5-10.1) Total Bilirubin 0.3 mg/dL (0.2-1.0) Aspartate Amino Transf (AST/SGOT) 87 U/L (15-37) Alanine Aminotransferase (ALT/SGPT) 70 U/L (14-59) Alkaline Phosphatase 62 U/L (46-116) Total Protein 5.8 g/dL (6.4-8.2) Albumin 2.0 g/dL (3.4-5.0) Albumin/Globulin Ratio 0.5 (1.0-1.7) O2 Saturation 93 % (92-99) 92 % (92-99) Arterial Blood pH 7.47 (7.35-7.45) 7.34 (7.35-7.45) Arterial Blood pCO2 at Patient Temp 26 mmHg (35-46) 36 mmHg (35-46) Arterial Blood pO2 at Patient Temp 69 mmHg (65-108) 74 mmHg (65-108) Arterial Blood HCO3 18 mmol/L (21-28) 19 mmol/L (21-28) Arterial Blood Base Excess -4 mmol/L (-3-3) -6 mmol/L (-3-3) FiO2 40 40 Hepatitis B Surface Antigen Nonreactive (Nonreactive) Hepatitis B Surface Antibody, Quant <3.1 mIU/mL (Immunity>9.9) Arterial Blood pH (Temp corrected) 7.31 Arterial Blood pCO2 (Temp correct) 40 mmHg Arterial Blood pO2 (Temp corrected) 85 mmHg Test 02/13/18 19:10 02/14/18 05:00 02/14/18 12:44 Urine Collection Type Unknown Urine Color Yellow Urine Clarity Cloudy Urine pH 5.5 Urine Specific [place] 1.015 Urine Protein 100 mg/dL (NEG-TRACE) Urine Glucose (UA) Negative mg/dL (NEG) Urine Ketones (Stick) Negative mg/dL (NEG) Urine Blood Small (NEG) Urine Nitrite Negative (NEG) Urine Bilirubin Negative (NEG) Urine Urobilinogen Dipstick 0.2 mg/dL (0.2 mg/dL) Urine Leukocyte Esterase Negative (NEG) Urine RBC Occ /HPF (0-2) Urine WBC Occ /HPF (0-4) Urine Squamous Epithelial Cells Few /LPF Urine Amorphous Sediment Present /HPF Urine Bacteria 0 /HPF (0-FEW) Urine Granular Casts Few /HPF Urine Mucus Mod /LPF White Blood Count 8.5 x10^3/uL (4.0-11.0) 10.3 x10^3/uL (4.0-11.0) Red Blood Count 2.66 x10^6/uL (3.50-5.40) 2.48 x10^6/uL (3.50-5.40) Hemoglobin 8.2 g/dL (12.0-15.5) 7.7 g/dL (12.0-15.5) Hematocrit 23.9 % (36.0-47.0) 22.2 % (36.0-47.0) Mean Corpuscular Volume 90 fL (79-100) 89 fL (79-100) Mean Corpuscular Hemoglobin 31 pg (25-35) 31 pg (25-35) Mean Corpuscular Hemoglobin Concent 34 g/dL (31-37) 35 g/dL (31-37) Red Cell Distribution Width 16.7 % (11.5-14.5) 16.8 % (11.5-14.5) Platelet Count 137 x10^3/uL (140-400) 127 x10^3/uL (140-400) Neutrophils (%) (Auto) 90 % (31-73) Lymphocytes (%) (Auto) 7 % (24-48) Monocytes (%) (Auto) 3 % (0-9) Eosinophils (%) (Auto) 0 % (0-3) Basophils (%) (Auto) 0 % (0-3) Neutrophils # (Auto) 7.6 x10^3uL (1.8-7.7) Lymphocytes # (Auto) 0.6 x10^3/uL (1.0-4.8) Monocytes # (Auto) 0.3 x10^3/uL (0.0-1.1) Eosinophils # (Auto) 0.0 x10^3/uL (0.0-0.7) Basophils # (Auto) 0.0 x10^3/uL (0.0-0.2) Sodium Level 143 mmol/L (136-145) Potassium Level 4.2 mmol/L (3.5-5.1) Chloride Level 107 mmol/L (98-107) Carbon Dioxide Level 23 mmol/L (21-32) Anion Gap 13 (6-14) Blood Urea Nitrogen 100 mg/dL (7-20) Creatinine 4.2 mg/dL (0.6-1.0) Estimated GFR (Cockcroft-Gault) 10.6 Glucose Level 180 mg/dL (70-99) Calcium Level 7.3 mg/dL (8.5-10.1) Magnesium Level 2.6 mg/dL (1.8-2.4) Laboratory Tests Test 02/13/18 19:10 02/14/18 05:00 02/14/18 12:44 Urine Collection Type Unknown Urine Color Yellow Urine Clarity Cloudy Urine pH 5.5 Urine Specific [place] 1.015 Urine Protein 100 mg/dL (NEG-TRACE) Urine Glucose (UA) Negative mg/dL (NEG) Urine Ketones (Stick) Negative mg/dL (NEG) Urine Blood Small (NEG) Urine Nitrite Negative (NEG) Urine Bilirubin Negative (NEG) Urine Urobilinogen Dipstick 0.2 mg/dL (0.2 mg/dL) Urine Leukocyte Esterase Negative (NEG) Urine RBC Occ /HPF (0-2) Urine WBC Occ /HPF (0-4) Urine Squamous Epithelial Cells Few /LPF Urine Amorphous Sediment Present /HPF Urine Bacteria 0 /HPF (0-FEW) Urine Granular Casts Few /HPF Urine Mucus Mod /LPF White Blood Count 8.5 x10^3/uL (4.0-11.0) 10.3 x10^3/uL (4.0-11.0) Red Blood Count 2.66 x10^6/uL (3.50-5.40) 2.48 x10^6/uL (3.50-5.40) Hemoglobin 8.2 g/dL (12.0-15.5) 7.7 g/dL (12.0-15.5) Hematocrit 23.9 % (36.0-47.0) 22.2 % (36.0-47.0) Mean Corpuscular Volume 90 fL (79-100) 89 fL (79-100) Mean Corpuscular Hemoglobin 31 pg (25-35) 31 pg (25-35) Mean Corpuscular Hemoglobin Concent 34 g/dL (31-37) 35 g/dL (31-37) Red Cell Distribution Width 16.7 % (11.5-14.5) 16.8 % (11.5-14.5) Platelet Count 137 x10^3/uL (140-400) 127 x10^3/uL (140-400) Neutrophils (%) (Auto) 90 % (31-73) Lymphocytes (%) (Auto) 7 % (24-48) Monocytes (%) (Auto) 3 % (0-9) Eosinophils (%) (Auto) 0 % (0-3) Basophils (%) (Auto) 0 % (0-3) Neutrophils # (Auto) 7.6 x10^3uL (1.8-7.7) Lymphocytes # (Auto) 0.6 x10^3/uL (1.0-4.8) Monocytes # (Auto) 0.3 x10^3/uL (0.0-1.1) Eosinophils # (Auto) 0.0 x10^3/uL (0.0-0.7) Basophils # (Auto) 0.0 x10^3/uL (0.0-0.2) Sodium Level 143 mmol/L (136-145) Potassium Level 4.2 mmol/L (3.5-5.1) Chloride Level 107 mmol/L (98-107) Carbon Dioxide Level 23 mmol/L (21-32) Anion Gap 13 (6-14) Blood Urea Nitrogen 100 mg/dL (7-20) Creatinine 4.2 mg/dL (0.6-1.0) Estimated GFR (Cockcroft-Gault) 10.6 Glucose Level 180 mg/dL (70-99) Calcium Level 7.3 mg/dL (8.5-10.1) Magnesium Level 2.6 mg/dL (1.8-2.4) Microbiology 02/12/18 Blood Culture - Preliminary, Resulted NO GROWTH AFTER 2 DAYS 02/10/18 - Final, Complete 02/10/18 - Final, Complete 02/10/18 - Final, Complete 02/10/18 Gram Stain Evaluation - Final, Complete 02/10/18 Sputum Culture - Final, Complete 02/10/18 Sputum Result 1 - Final, Complete Medications Current Medications Albuterol/ Ipratropium (Duoneb) 3 ml 1X ONCE NEB Last administered on at 17:14; Start 02/08/18 at 16:00; Stop 02/08/18 at 16:01; Status DC Vancomycin HCl (Vanco Per Pharmacy) 1 each PRN DAILY PRN MC SEE COMMENTS Last administered on 02/09/18at 08:59; Start 02/08/18 at 16:15; Stop 02/10/18 at 09 :07; Status DC Piperacillin Sod/ Tazobactam Sod (Zosyn Per Pharmacy) 1 each PRN DAILY PRN MC SEE COMMENTS; Start 02/08/18 at 16:15; Stop 02/12/18 at 07:24; Status DC Vancomycin HCl 1.75 gm/Sodium Chloride 500 ml @ 250 mls/hr 1X ONCE IV Last administered on 02/08/18at 16:36; Start 02/08/18 at 17:00; Stop 02/08/18 at 18 :59; Status DC Piperacillin Sod/ Tazobactam Sod 3.375 gm/Sodium Chloride 50 ml @ 100 mls/hr 1X ONCE IV Last administered on 02/08/18at 16:36; Start 02/08/18 at 16:30; Stop 02/08/18 at 16:59; Status DC Furosemide (Lasix) 20 mg 1X ONCE IVP Last administered on 02/08/18at 16:36; Start 02/08/18 at 16:30; Stop 02/08/18 at 16:31; Status DC Aspirin (Children'S Aspirin) 324 mg 1X ONCE PO Last administered on at 16:36; Start 02/08/18 at 16:30; Stop 02/08/18 at 16:31; Status DC Furosemide (Lasix) 20 mg 1X ONCE IVP Last administered on 02/08/18at 18:07; Start 02/08/18 at 17:00; Stop 02/08/18 at 17:01; Status DC Ondansetron HCl (Zofran) 4 mg 1X ONCE IV Last administered on 02/08/18at 17:00 ; Start 02/08/18 at 17:00; Stop 02/08/18 at 17:01; Status DC Ondansetron HCl (Zofran) 4 mg STK-MED ONCE .ROUTE ; Start 02/08/18 at 16:51; Stop 02/08/18 at 16:52; Status DC Heparin Sodium/ Dextrose 500 ml @ 0 mls/hr CONT PRN IV SEE I/O RECORD; Start 02/08/18 at 17:30; Status UNV Info (Anti-Coagulation Monitoring By Pharmacy) 1 each PRN DAILY PRN MC SEE COMMENTS Last administered on 02/11/18at 12:25; Start 02/08/18 at 17:30; Stop 02/13/18 at 09:17; Status DC Heparin Sodium/ Dextrose 500 ml @ 0 mls/hr CONT PRN IV SEE I/O RECORD Last administered on 02/12/18at 19:46; Start 02/08/18 at 17:30; Stop 02/13/18 at 08 :22; Status DC Heparin Sodium (Porcine) (Heparin Sodium) 1,800 unit PRN Q6HRS PRN IV FOR UFH LEVEL LESS THAN 0.2 Last administered on 02/08/18at 20:10; Start 02/08/18 at 17 :30; Stop 02/13/18 at 08:22; Status DC Ondansetron HCl (Zofran) 4 mg 1X PRN PRN IV NAUSEA/VOMITING; Start 02/08/18 at 18:00; Stop 02/09/18 at 09:06; Status DC Piperacillin Sod/ Tazobactam Sod 3.375 gm/Sodium Chloride 50 ml @ 100 mls/hr Q6HRS IV Last administered on 02/11/18at 05:37; Start 02/09/18 at 00:00; Stop 02/11/18 at 07:14; Status DC Vancomycin HCl 1 gm/Sodium Chloride 250 ml @ 250 mls/hr Q24H IV Last administered on 02/09/18at 16:30; Start 02/09/18 at 16:30; Stop 02/10/18 at 09 :07; Status DC Vancomycin HCl (Vancomycin Trough Level) 1 each 1X ONCE MC ; Start 02/10/18 at 16:00; Stop 02/10/18 at 16:00; Status DC Magnesium Sulfate/ Dextrose 100 ml @ 25 mls/hr 1X ONCE IV Last administered on 02/08/18at 22:03; Start 02/08/18 at 22:00; Stop 02/09/18 at 01:59; Status DC Aspirin (Radha Aspirin) 325 mg DAILY PO ; Start 02/09/18 at 09:00; Stop at 10:16; Status DC Atorvastatin Calcium (Lipitor) 10 mg HS PO ; Start 02/09/18 at 21:00; Stop at 21:00; Status DC Clonidine HCl (Catapres) 0.1 mg QHS PO Last administered on 02/08/18at 22:05; Start 02/08/18 at 22:00; Stop 02/09/18 at 10:16; Status DC Docusate Sodium (Colace) 100 mg BID PO ; Start 02/09/18 at 09:00; Stop at 10:16; Status DC Gabapentin (Neurontin) 300 mg TID PO Last administered on 02/08/18at 22:08; Start 02/08/18 at 22:20; Stop 02/09/18 at 10:16; Status DC Labetalol HCl (Normodyne Iv Push) 10 mg PRN Q2HR PRN IVP HYPERTENSION, SEE COMMENTS Last administered on 02/12/18at 15:12; Start 02/08/18 at 21:30; Stop 02/12/18 at 16:22; Status DC Lorazepam (Ativan) 1 mg PRN Q4HRS PRN IV ANXIETY / AGITATION Last administered on 02/14/18at 17:23; Start 02/08/18 at 21:30 Morphine Sulfate (Morphine Sulfate) 4 mg PRN Q4HRS PRN IV PAIN Last administered on 02/09/18at 19:45; Start 02/08/18 at 21:30 Acetaminophen (Tylenol Supp) 325 mg PRN Q6HRS PRN ME MILD PAIN / TEMP Last administered on 02/09/18at 09:30; Start 02/09/18 at 06:45 Ipratropium [place] (Atrovent) 0.5 mg RTQID NEB Last administered on at 19:59; Start 02/09/18 at 08:00 Budesonide (Pulmicort) 0.5 mg RTBID NEB Last administered on 02/14/18at 07:29; Start 02/09/18 at 08:00 Famotidine (Pepcid Vial) 20 mg QHS IVP Last administered on 02/12/18at 21:56; Start 02/09/18 at 21:00; Stop 02/13/18 at 14:47; Status DC Acetaminophen (Tylenol) 500 mg PRN Q6HRS PRN PO FEVER/KUO Last administered on 02/14/18at 17:23; Start 02/09/18 at 09:00 Ondansetron HCl (Zofran) 4 mg PRN Q6HRS PRN IV NAUSEA/VOMITING; Start at 09:00 Ondansetron HCl (Zofran Odt) 4 mg PRN Q6HRS PRN PO NAUSEA/VOMITING; Start at 09:00 Acetaminophen/ Hydrocodone Bitart (Lortab 10/325) 1 tab PRN Q4HRS PRN PO MODERATE PAIN; Start 02/09/18 at 09:00 Magnesium Hydroxide (Milk Of Magnesia) 400 mg DAILY PO Last administered on at 08:18; Start 02/09/18 at 09:00 Oxycodone HCl (OxyCONTIN) 10 mg BID PO ; Start 02/09/18 at 09:00; Stop at 10:16; Status DC Oxycodone/ Acetaminophen (Percocet 5/325) 1 tab BID PO ; Start 02/09/18 at 09: 00; Stop 02/09/18 at 10:16; Status DC Tramadol HCl (Ultram) 50 mg PRN DAILY PRN PO MILD PAIN; Start 02/09/18 at 09: 00 Non-Formulary Medication (Acetaminophen ) 1 tab BID PO ; Start 02/09/18 at 09: 00; Stop 02/09/18 at 09:12; Status DC Non-Formulary Medication (Albuterol Sulfate (Albuterol Sulfate Neb Soln)) 1 vial QID NEB ; Start 02/09/18 at 09:00; Stop 02/09/18 at 09:22; Status DC Citalopram Hydrobromide (CeleXA) 40 mg QHS PO ; Start 02/09/18 at 21:00; Stop 02/09/18 at 21:00; Status DC Hydrochlorothiazide (Microzide) 12.5 mg QHS PO ; Start 02/09/18 at 21:00; Stop 02/09/18 at 21:00; Status DC Non-Formulary Medication (Magnesium Oxide ) 1 tab DAILY PO ; Start 02/09/18 at 09:00; Stop 02/09/18 at 09:14; Status DC Non-Formulary Medication (Multivitamin (Multivitamins)) 1 tab DAILY PO ; Start 02/09/18 at 09:00; Stop 02/09/18 at 09:14; Status DC Nicotine (Nicoderm Cq 14mg) 1 patch DAILY TD Last administered on 02/14/18at 08 :08; Start 02/09/18 at 10:00 Ondansetron HCl (Zofran Odt) 4 mg Q6HRS PO Last administered on 02/14/18at 05: 52; Start 02/09/18 at 12:00; Stop 02/14/18 at 15:05; Status DC Non-Formulary Medication (Polyethylene Glycol 3350 (Miralax)) 1 packet DAILY PO ; Start 02/09/18 at 09:00; Stop 02/09/18 at 09:17; Status DC Quetiapine Fumarate (SEROquel) 25 mg QHS PO ; Start 02/09/18 at 21:00; Stop at 21:00; Status DC Labetalol HCl (Normodyne Iv Push) 10 mg PRN Q2HR PRN IVP HYPERTENSION, SEE COMMENTS; Start 02/09/18 at 09:00; Stop 02/09/18 at 09:06; Status DC Acetaminophen (Tylenol) 500 mg BID PO ; Start 02/09/18 at 10:00; Stop at 10:16; Status DC Magnesium Oxide (Magnesium Oxide) 400 mg DAILY PO Last administered on at 08:06; Start 02/09/18 at 10:00 Multivitamins (Thera M Plus) 1 tab DAILY PO ; Start 02/09/18 at 10:00; Stop at 10:16; Status DC Polyethylene Glycol (miraLAX PACKET) 17 gm DAILY PO ; Start 02/09/18 at 10:00; Stop 02/09/18 at 10:16; Status DC Albuterol Sulfate (Ventolin Neb Soln) 2.5 mg RTQID NEB Last administered on at 15:23; Start 02/09/18 at 12:00 Furosemide (Lasix) 60 mg 1X ONCE IVP Last administered on 02/09/18at 20:16; Start 02/09/18 at 20:00; Stop 02/09/18 at 20:01; Status DC Rocuronium [place] (Zemuron) 50 mg STK-MED ONCE .ROUTE ; Start 02/09/18 at 20: 23; Stop 02/09/18 at 20:24; Status DC Fentanyl Citrate 30 ml @ 0 mls/hr CONT PRN IV SEE PROTOCOL Last administered on 02/14/18at 03:12; Start 02/09/18 at 20:30 Propofol 100 ml @ 0 mls/hr CONT PRN IV SEE PROTOCOL Last administered on at 14:09; Start 02/09/18 at 20:30 Midazolam HCl 100 ml @ 5 mls/hr CONT PRN IV SEE I/O RECORD Last administered on 02/12/18at 03:38; Start 02/09/18 at 22:00; Stop 02/13/18 at 17:22; Status DC Norepinephrine Bitartrate 250 ml @ As Directed STK-MED ONCE IV ; Start at 02:33; Stop 02/10/18 at 02:35; Status DC Norepinephrine Bitartrate 250 ml @ 1.875 mls/ hr CONT PRN IV SEE I/O RECORD Last administered on 02/14/18at 15:02; Start 02/10/18 at 02:45 Methylprednisolone Sodium Succinate (SOLU-Medrol 40MG VIAL) 40 mg Q12HR IV Last administered on 02/14/18at 08:06; Start 02/10/18 at 09:00 Piperacillin Sod/ Tazobactam Sod 2.25 gm/Sodium Chloride 50 ml @ 100 mls/hr Q6HRS IV Last administered on 02/12/18at 05:47; Start 02/11/18 at 12:00; Stop 02/12/18 at 07:24; Status DC Propofol (Diprivan) 200 mg STK-MED ONCE IV ; Start 02/09/18 at 07:00; Stop at 07:43; Status DC Succinylcholine Chloride (Anectine) 200 mg STK-MED ONCE .ROUTE ; Start at 07:00; Stop 02/11/18 at 07:43; Status DC Phenylephrine HCl (PHENYLEPHRINE in 0.9% NACL PF) 1 mg STK-MED ONCE IV ; Start 02/09/18 at 07:00; Stop 02/11/18 at 07:43; Status DC Ephedrine Sulfate (ePHEDrine PF IN SALINE SYRINGE) 50 mg STK-MED ONCE IV ; Start 02/09/18 at 07:00; Stop 02/11/18 at 07:43; Status DC Rocuronium [place] (Zemuron) 50 mg STK-MED ONCE .ROUTE ; Start 02/09/18 at 21: 00; Stop 02/11/18 at 08:22; Status DC Linezolid/Dextrose 300 ml @ 300 mls/hr Q12HR IV Last administered on at 08:08; Start 02/12/18 at 09:00 Micafungin Sodium 100 mg/Dextrose 100 ml @ 100 mls/hr Q24H IV Last administered on 02/14/18at 09:33; Start 02/12/18 at 10:00 Cefepime HCl (Maxipime) 1 gm Q12HR IVP Last administered on 02/13/18at 08:19; Start 02/12/18 at 09:00; Stop 02/13/18 at 10:56; Status DC Atorvastatin Calcium (Lipitor) 10 mg QHS PO Last administered on 02/13/18at 23: 16; Start 02/12/18 at 21:00 Labetalol HCl (Normodyne Iv Push) 20 mg PRN Q2HR PRN IVP HYPERTENSION, SEE COMMENTS Last administered on 02/13/18at 05:34; Start 02/12/18 at 16:15 Aspirin (Children'S Aspirin) 81 mg DAILYWBKFT PO Last administered on at 08:06; Start 02/12/18 at 16:15 Metoprolol Tartrate (Lopressor) 25 mg BID PO Last administered on 02/13/18at 23 :17; Start 02/13/18 at 11:00 Cefepime HCl (Maxipime) 1 gm QHS IVP ; Start 02/13/18 at 21:00; Stop 02/13/18 at 21:00; Status DC Lidocaine/Sodium Bicarbonate (Buffered Lidocaine 1%) 3 ml STK-MED ONCE .ROUTE ; Start 02/13/18 at 13:32; Stop 02/13/18 at 13:33; Status DC Heparin Sodium (Porcine) (Heparin Sodium) 10,000 unit STK-MED ONCE .ROUTE ; Start 02/13/18 at 13:32; Stop 02/13/18 at 13:33; Status DC Midazolam HCl (Versed) 5 mg STK-MED ONCE .ROUTE ; Start 02/13/18 at 14:04; Stop 02/13/18 at 14:05; Status DC Midazolam HCl (Versed) 5 mg 1X ONCE IV Last administered on 02/13/18at 14:10; Start 02/13/18 at 14:15; Stop 02/13/18 at 14:16; Status DC Lidocaine/Sodium Bicarbonate (Buffered Lidocaine 1%) 4 ml 1X ONCE INJ Last administered on 02/13/18at 14:57; Start 02/13/18 at 14:45; Stop 02/13/18 at 14 :52; Status DC Heparin Sodium (Porcine) (Heparin Sodium) 2,200 unit 1X ONCE INT CAT Last administered on 02/13/18at 15:02; Start 02/13/18 at 14:45; Stop 02/13/18 at 14 :52; Status DC Pantoprazole Sodium (PROTONIX VIAL for IV PUSH) 40 mg BIDAC IVP Last administered on 02/14/18at 17:23; Start 02/13/18 at 16:30 Heparin Sodium (Porcine) (Heparin Sodium) 2,500 unit 1X ONCE INT CAT ; Start 02/13/18 at 15:00; Stop 02/13/18 at 15:03; Status DC Meropenem 500 mg/ Sodium Chloride 50 ml @ 100 mls/hr Q24H IV Last administered on 02/14/18at 08:07; Start 02/13/18 at 16:00 Midazolam HCl 100 ml @ 5 mls/hr CONT PRN IV SEE I/O RECORD Last administered on 02/14/18at 10:45; Start 02/13/18 at 15:15 Midazolam HCl (Versed) 5 mg STK-MED ONCE .ROUTE ; Start 02/13/18 at 15:15; Stop 02/13/18 at 15:16; Status DC Clopidogrel Bisulfate (Plavix) 75 mg DAILYWBKFT PO Last administered on at 08:06; Start 02/13/18 at 16:00 Sodium Chloride 1,000 ml @ 1,000 mls/hr Q1H PRN IV hypotension; Start at 19:27; Stop 02/14/18 at 01:26; Status DC Albumin Human 200 ml @ 200 mls/hr 1X PRN PRN IV Hypotension; Start 02/13/18 at 19:30; Stop 02/14/18 at 01:29; Status DC Sodium Chloride 1,000 ml @ 400 mls/hr Q2H30M PRN IV PATENCY; Start 02/13/18 at 19:27; Stop 02/14/18 at 07:26; Status DC Info (PHARMACY MONITORING -- do not chart) 1 each PRN DAILY PRN MC SEE COMMENTS ; Start 02/13/18 at 19:30 Info (PHARMACY MONITORING -- do not chart) 1 each PRN DAILY PRN MC SEE COMMENTS ; Start 02/13/18 at 19:30; Status UNV Sodium Chloride 1,000 ml @ 1,000 mls/hr Q1H PRN IV hypotension; Start at 08:16; Stop 02/14/18 at 14:15; Status DC Sodium Chloride 1,000 ml @ 400 mls/hr Q2H30M PRN IV PATENCY; Start 02/14/18 at 08:16; Stop 02/14/18 at 20:15 Info (PHARMACY MONITORING -- do not chart) 1 each PRN DAILY PRN MC SEE COMMENTS ; Start 02/14/18 at 08:30; Status UNV Midazolam HCl (Versed) 5 mg STK-MED ONCE .ROUTE ; Start 02/13/18 at 15:30; Stop 02/14/18 at 09:00; Status DC Active Scripts Active Percocet 5-325 Mg Tablet (Oxycodone/Acetaminophen) 1 Each Tablet 1 Tab PO BID 3 Days Reported Zofran (Ondansetron Hcl) 4 Mg Tablet 1 Tab PO Q6HRS Milk Of Magnesia (Magnesium Hydroxide) 400 Mg/5 Ml Oral.susp 400 Mg PO Acetaminophen 500 Mg Tablet 1 Tab PO BID Clonidine Hcl 0.1 Mg Tablet 1 Tab PO QHS Tramadol Hcl 50 Mg Tablet 50 Mg PO DAILY PRN Hydralazine Hcl 20 Mg/1 Ml Vial 20 Mg IJ Gabapentin (Gabapentin) 300 Mg Capsule 300 Mg PO TID Acidophilus (Lactobacillus Acidophilus) 1 Each Capsule 1 Each PO Atorvastatin Calcium 10 Mg Tablet 1 Tab PO DAILY Vitamin C (Ascorbic Acid) 500 Mg Tablet.er 500 Mg PO Aspirin 325 Mg Tablet 1 Tab PO DAILY Colace (Docusate Sodium) 100 Mg Capsule 1 Cap PO BID Magnesium Oxide 400 Mg Tablet 1 Tab PO DAILY Multivitamins (Multivitamin) 1 Each Tablet 1 Tab PO DAILY NICODERM CQ 14mg (Nicotine) 1 Each Patch.td24 1 Patch TP DAILY Miralax (Polyethylene Glycol 3350) 17 Gm Powd.pack 1 Packet PO DAILY Albuterol Sulfate Neb Soln (Albuterol Sulfate) 0.63 Mg/3 Ml Vial.neb 1 Vial NEB QID Prednisone 20 Mg Tablet 1 Tab PO DAILY Seroquel (Quetiapine Fumarate) 25 Mg Tablet 1 Tab PO QHS Hydrochlorothiazide Tablet (Hydrochlorothiazide) 12.5 Mg Tablet 1 Tab PO QHS Lexapro (Escitalopram Oxalate) 20 Mg Tablet 1 Tab PO QHS Hydrocodone-Apap 10-325 (Hydrocodone Bit/Acetaminophen) 1 Each Tablet 1 Tab PO PRN Q4HRS Oxycontin (Oxycodone HCl) 10 Mg Tab.er.12h 10 Mg PO BID Vitals/I & O Vital Sign - Last 24 Hours 02/13/18 02/13/18 02/13/18 02/13/18 19:00 20:00 20:00 20:00 Temp 101.4 101.4 Pulse 115 121 Resp 24 27 B/P (MAP) 115/64 (81) 139/69 (92) Pulse Ox 95 94 95 O2 Delivery Ventilator Mechanical Ventilator Ventilator Ventilator 02/13/18 02/13/18 02/13/18 02/13/18 20:01 21:03 21:15 22:00 Pulse 122 121 120 Resp 25 23 24 B/P (MAP) 80/54 (63) 87/65 (72) 115/64 (81) Pulse Ox 95 93 95 O2 Delivery Ventilator Ventilator 02/13/18 02/13/18 02/13/18 02/13/18 23:00 23:15 23:17 23:30 Temp 97.7 97.7 Pulse 114 118 118 122 Resp 23 B/P (MAP) 140/67 (91) 140/67 (91) 140/67 158/77 (104) Pulse Ox 97 O2 Delivery Ventilator 02/13/18 02/13/18 02/14/18 02/14/18 23:45 23:47 00:00 00:00 Temp 100.7 100.7 Pulse 120 120 Resp 24 B/P (MAP) 137/81 (99) 112/69 (83) Pulse Ox 95 100 O2 Delivery Ventilator Mechanical Ventilator Ventilator 02/14/18 02/14/18 02/14/18 02/14/18 00:15 00:30 00:45 01:00 Pulse 118 118 114 110 Resp 25 B/P (MAP) 137/71 (93) 129/76 (93) 124/70 (88) 109/64 (79) Pulse Ox 96 O2 Delivery Ventilator 02/14/18 02/14/18 02/14/18 02/14/18 01:15 01:30 02:00 02:14 Pulse 110 106 105 Resp 23 B/P (MAP) 114/69 (84) 108/70 (83) 97/63 (74) Pulse Ox 97 96 O2 Delivery Ventilator Ventilator 02/14/18 02/14/18 02/14/18 02/14/18 02:15 02:30 03:00 03:15 Pulse 98 94 86 86 Resp 24 B/P (MAP) 86/50 (62) 81/54 (63) 98/55 (69) 57/42 (47) Pulse Ox 97 O2 Delivery Ventilator 02/14/18 02/14/18 02/14/18 02/14/18 03:30 03:50 04:00 04:41 Temp 98.6 98.6 Pulse 83 83 Resp 25 B/P (MAP) 81/56 (64) 100/58 (72) Pulse Ox 99 98 O2 Delivery Mechanical Ventilator Ventilator Ventilator 02/14/18 02/14/18 02/14/18 02/14/18 05:00 06:00 07:00 07:29 Pulse 79 79 86 Resp 23 26 17 B/P (MAP) 100/61 (74) 114/63 (80) 111/65 (80) Pulse Ox 99 98 97 97 O2 Delivery Ventilator Ventilator Ventilator Ventilator 02/14/18 02/14/18 02/14/18 02/14/18 08:00 08:00 08:48 09:00 Temp 98.1 98.1 Pulse 92 95 Resp 23 17 B/P (MAP) 68/46 (53) 107/70 (82) Pulse Ox 97 98 96 O2 Delivery Ventilator Mechanical Ventilator Ventilator Ventilator 02/14/18 02/14/18 02/14/18 02/14/18 10:00 10:50 11:00 12:00 Pulse 121 110 Resp 26 21 B/P (MAP) 166/83 (110) 77/48 (58) Pulse Ox 92 91 94 O2 Delivery Ventilator Ventilator Ventilator Mechanical Ventilator 02/14/18 02/14/18 02/14/18 02/14/18 12:00 13:00 13:26 14:00 Temp 99.6 98.8 99.6 98.8 Pulse 101 98 100 Resp 19 20 22 B/P (MAP) 133/68 (89) 114/61 (78) 124/65 (84) Pulse Ox 94 95 96 97 O2 Delivery Ventilator Ventilator Ventilator Ventilator 02/14/18 02/14/18 02/14/18 02/14/18 15:00 15:25 16:00 16:00 Temp 101.3 101.3 Pulse 106 111 Resp 26 19 B/P (MAP) 166/80 (108) 95/57 (70) Pulse Ox 94 95 92 O2 Delivery Ventilator Ventilator Ventilator Mechanical Ventilator 02/14/18 02/14/18 17:00 17:12 Pulse 110 Resp 20 B/P (MAP) 152/68 (96) Pulse Ox 94 93 O2 Delivery Ventilator Ventilator Intake and Output 02/13/18 02/13/18 02/14/18 15:00 23:00 07:00 Intake Total 661.4 ml 433.28 ml 2446 ml Output Total 475 ml 230 ml 410 ml Balance 186.4 ml 203.28 ml 2036 ml Nutrition Consultation Dietary Evaluation: Recommendations by RD: Increase Calorie Intake Comments: Continue TF per current order: Jevity 1.5@goal rate 45 ml/hr w/150 ml water flushes q4 hrs or flushes per MD Expected Outcomes/Goals: TF for nutrition needs while pt remains intubated - met, goal ongoing Interpretation of weight loss: >10% in 6 months Malnutrition Findings: Body Fat Depletion (Non Severe: Mild Depletion Weight Status: Appropriate ALEX RUDOLPH MD Feb 14, 2018 18:32
[2018-02-14] MEDS: ATORVASTATIN CALCIUM 10 MG TABLET. PO SCH (21:29)
[2018-02-15] VITALS (25 sets, daily range): BP systolic 84–163; BP diastolic 49–77
[2018-02-15] MEDS: MIDAZOLAM 100mg/100ml NS BAG 100 ML IV PRN (05:58)
[2018-02-15 06:12] LABS: CALCIUM 7.6 mg/dL (8.5-10.1); CREATININE 3.7 mg/dL (0.6-1.0); GFR 12.3; MAGNESIUM 2.7 mg/dL (1.8-2.4); POTASSIUM 4.6 mmol/L (3.5-5.1)
[2018-02-15 06:39] LABS: BASO % 0 % (0-3); EOS % 0 % (0-3); HEMOGLOBIN 7.9 g/dL (12.0-15.5); LYMPH # 0.4 x10^3/uL (1.0-4.8); LYMPH % 3 % (24-48); MEAN CORPUSCULAR HEMOGLOBIN 31 pg (25-35); MEAN CORPUSCULAR HGB CONC 34 g/dL (31-37); MEAN CORPUSCULAR VOLUME 90 fL (79-100); MONO # 0.2 x10^3/uL (0.0-1.1); MONO % 2 % (0-9); NEUT # 13.2 x10^3uL (1.8-7.7); NEUT % 95 % (31-73); PLATELET COUNT 223 x10^3/uL (140-400); RED BLOOD COUNT 2.57 x10^6/uL (3.50-5.40); RED CELL DISTRIBUTION WIDTH 17.2 % (11.5-14.5); WHITE BLOOD COUNT 13.9 x10^3/uL (4.0-11.0)
[2018-02-15] MEDS: ALBUTEROL SULFATE 2.5 MG/3 ML NEBU. NEB SCH ×3 (07:05→16:00)
[2018-02-15] MEDS: BUDESONIDE 0.5 MG/2 ML NEBU. NEB SCH ×2 (07:07→19:50)
[2018-02-15] MEDS: methylPREDNISolone SOD SUCC PF 40 MG/ML VIAL. IV SCH ×2 (08:30→21:00)
[2018-02-15] MEDS: MAGNESIUM OXIDE 400 MG TABLET PO SCH (08:31)
[2018-02-15] MEDS: MAGNESIUM HYDROXIDE 2,400 MG/30 ML ORAL.SUSP. PO SCH (08:31)
[2018-02-15] MEDS: CLOPIDOGREL BISULFATE 75 MG TABLET PO SCH (08:31)
[2018-02-15] MEDS: PANTOPRAZOLE IV PUSH 40 MG VIAL. IVP SCH ×2 (08:31→16:50)
[2018-02-15] MEDS: ASPIRIN CHEWABLE 81 MG TABLET. PO SCH (08:31)
[2018-02-15] MEDS: METOPROLOL TART IMMED RELEASE 25 MG TABLET. PO SCH ×2 (08:32→21:03)
[2018-02-15] MEDS: NICOTINE 14MG PATCH. TD SCH (08:32)
[2018-02-15] MEDS: MICAFUNGIN 100 MG in IV DEXTROSE 5% 100ML 100 ML IV SCH (08:34)
--- NOTE | 2018-02-15 08:52 | PDOC ---
PULMONARY PROGRESS NOTES Subjective NOT RESPONDING TO STERNAL RUB ON AC NOT IN SYNCH WITH VENT Vitals Vital Signs Date Time Temp Pulse Resp B/P (MAP) Pulse Ox O2 Delivery O2 Flow Rate FiO2 02/15/18 08:32 135 135/71 02/15/18 07:05 96 Ventilator 02/15/18 06:00 29 02/15/18 04:00 99.7 99.7 Lungs: Crackles Cardiovascular: S1, S2 Abdomen: Soft, Non-tender Extremities: No Edema Labs Laboratory Tests Test 02/13/18 09:30 02/13/18 13:00 02/13/18 14:30 02/13/18 19:10 O2 Saturation 93 % (92-99) 92 % (92-99) Arterial Blood pH 7.47 (7.35-7.45) 7.34 (7.35-7.45) Arterial Blood pCO2 at Patient Temp 26 mmHg (35-46) 36 mmHg (35-46) Arterial Blood pO2 at Patient Temp 69 mmHg (65-108) 74 mmHg (65-108) Arterial Blood HCO3 18 mmol/L (21-28) 19 mmol/L (21-28) Arterial Blood Base Excess -4 mmol/L (-3-3) -6 mmol/L (-3-3) FiO2 40 40 Heparin Anti-Xa Act, Unfractionated 0.41 IU/mL (0.30-0.70) Hepatitis B Surface Antigen Nonreactive (Nonreactive) Hepatitis B Surface Antibody, Quant <3.1 mIU/mL (Immunity>9.9) Arterial Blood pH (Temp corrected) 7.31 Arterial Blood pCO2 (Temp correct) 40 mmHg Arterial Blood pO2 (Temp corrected) 85 mmHg Urine Collection Type Unknown Urine Color Yellow Urine Clarity Cloudy Urine pH 5.5 Urine Specific [place] 1.015 Urine Protein 100 mg/dL (NEG-TRACE) Urine Glucose (UA) Negative mg/dL (NEG) Urine Ketones (Stick) Negative mg/dL (NEG) Urine Blood Small (NEG) Urine Nitrite Negative (NEG) Urine Bilirubin Negative (NEG) Urine Urobilinogen Dipstick 0.2 mg/dL (0.2 mg/dL) Urine Leukocyte Esterase Negative (NEG) Urine RBC Occ /HPF (0-2) Urine WBC Occ /HPF (0-4) Urine Squamous Epithelial Cells Few /LPF Urine Amorphous Sediment Present /HPF Urine Bacteria 0 /HPF (0-FEW) Urine Granular Casts Few /HPF Urine Mucus Mod /LPF Test 02/14/18 05:00 02/14/18 12:44 02/15/18 05:40 White Blood Count 8.5 x10^3/uL (4.0-11.0) 10.3 x10^3/uL (4.0-11.0) 13.9 x10^3/uL (4.0-11.0) Red Blood Count 2.66 x10^6/uL (3.50-5.40) 2.48 x10^6/uL (3.50-5.40) 2.57 x10^6/uL (3.50-5.40) Hemoglobin 8.2 g/dL (12.0-15.5) 7.7 g/dL (12.0-15.5) 7.9 g/dL (12.0-15.5) Hematocrit 23.9 % (36.0-47.0) 22.2 % (36.0-47.0) 23.0 % (36.0-47.0) Mean Corpuscular Volume 90 fL (79-100) 89 fL (79-100) 90 fL (79-100) Mean Corpuscular Hemoglobin 31 pg (25-35) 31 pg (25-35) 31 pg (25-35) Mean Corpuscular Hemoglobin Concent 34 g/dL (31-37) 35 g/dL (31-37) 34 g/dL (31-37) Red Cell Distribution Width 16.7 % (11.5-14.5) 16.8 % (11.5-14.5) 17.2 % (11.5-14.5) Platelet Count 137 x10^3/uL (140-400) 127 x10^3/uL (140-400) 223 x10^3/uL (140-400) Neutrophils (%) (Auto) 90 % (31-73) 95 % (31-73) Lymphocytes (%) (Auto) 7 % (24-48) 3 % (24-48) Monocytes (%) (Auto) 3 % (0-9) 2 % (0-9) Eosinophils (%) (Auto) 0 % (0-3) 0 % (0-3) Basophils (%) (Auto) 0 % (0-3) 0 % (0-3) Neutrophils # (Auto) 7.6 x10^3uL (1.8-7.7) 13.2 x10^3uL (1.8-7.7) Lymphocytes # (Auto) 0.6 x10^3/uL (1.0-4.8) 0.4 x10^3/uL (1.0-4.8) Monocytes # (Auto) 0.3 x10^3/uL (0.0-1.1) 0.2 x10^3/uL (0.0-1.1) Eosinophils # (Auto) 0.0 x10^3/uL (0.0-0.7) 0.0 x10^3/uL (0.0-0.7) Basophils # (Auto) 0.0 x10^3/uL (0.0-0.2) 0.0 x10^3/uL (0.0-0.2) Sodium Level 143 mmol/L (136-145) 139 mmol/L (136-145) Potassium Level 4.2 mmol/L (3.5-5.1) 4.6 mmol/L (3.5-5.1) Chloride Level 107 mmol/L (98-107) 102 mmol/L (98-107) Carbon Dioxide Level 23 mmol/L (21-32) 26 mmol/L (21-32) Anion Gap 13 (6-14) 11 (6-14) Blood Urea Nitrogen 100 mg/dL (7-20) 74 mg/dL (7-20) Creatinine 4.2 mg/dL (0.6-1.0) 3.7 mg/dL (0.6-1.0) Estimated GFR (Cockcroft-Gault) 10.6 12.3 Glucose Level 180 mg/dL (70-99) 149 mg/dL (70-99) Calcium Level 7.3 mg/dL (8.5-10.1) 7.6 mg/dL (8.5-10.1) Magnesium Level 2.6 mg/dL (1.8-2.4) 2.7 mg/dL (1.8-2.4) Laboratory Tests Test 02/14/18 12:44 02/15/18 05:40 White Blood Count 10.3 x10^3/uL (4.0-11.0) 13.9 x10^3/uL (4.0-11.0) Red Blood Count 2.48 x10^6/uL (3.50-5.40) 2.57 x10^6/uL (3.50-5.40) Hemoglobin 7.7 g/dL (12.0-15.5) 7.9 g/dL (12.0-15.5) Hematocrit 22.2 % (36.0-47.0) 23.0 % (36.0-47.0) Mean Corpuscular Volume 89 fL (79-100) 90 fL (79-100) Mean Corpuscular Hemoglobin 31 pg (25-35) 31 pg (25-35) Mean Corpuscular Hemoglobin Concent 35 g/dL (31-37) 34 g/dL (31-37) Red Cell Distribution Width 16.8 % (11.5-14.5) 17.2 % (11.5-14.5) Platelet Count 127 x10^3/uL (140-400) 223 x10^3/uL (140-400) Neutrophils (%) (Auto) 95 % (31-73) Lymphocytes (%) (Auto) 3 % (24-48) Monocytes (%) (Auto) 2 % (0-9) Eosinophils (%) (Auto) 0 % (0-3) Basophils (%) (Auto) 0 % (0-3) Neutrophils # (Auto) 13.2 x10^3uL (1.8-7.7) Lymphocytes # (Auto) 0.4 x10^3/uL (1.0-4.8) Monocytes # (Auto) 0.2 x10^3/uL (0.0-1.1) Eosinophils # (Auto) 0.0 x10^3/uL (0.0-0.7) Basophils # (Auto) 0.0 x10^3/uL (0.0-0.2) Sodium Level 139 mmol/L (136-145) Potassium Level 4.6 mmol/L (3.5-5.1) Chloride Level 102 mmol/L (98-107) Carbon Dioxide Level 26 mmol/L (21-32) Anion Gap 11 (6-14) Blood Urea Nitrogen 74 mg/dL (7-20) Creatinine 3.7 mg/dL (0.6-1.0) Estimated GFR (Cockcroft-Gault) 12.3 Glucose Level 149 mg/dL (70-99) Calcium Level 7.6 mg/dL (8.5-10.1) Magnesium Level 2.7 mg/dL (1.8-2.4) Medications Active Scripts Medications Dose Route/Sig Max Daily Dose Days Date Category Zofran (Ondansetron Hcl) 4 Mg Tablet 1 Tab PO Q6HRS 09/20/17 Reported Milk Of Magnesia (Magnesium Hydroxide) 400 Mg/5 Ml Oral.susp 400 Mg PO 09/20/17 Reported Acetaminophen 500 Mg Tablet 1 Tab PO BID 09/20/17 Reported Clonidine Hcl 0.1 Mg Tablet 1 Tab PO QHS 09/20/17 Reported Tramadol Hcl 50 Mg Tablet 50 Mg PO DAILY PRN 09/20/17 Reported Hydralazine Hcl 20 Mg/1 Ml Vial 20 Mg IJ 09/20/17 Reported Gabapentin (Gabapentin) 300 Mg Capsule 300 Mg PO TID 09/20/17 Reported Acidophilus (Lactobacillus Acidophilus) 1 Each Capsule 1 Each PO 09/20/17 Reported Atorvastatin Calcium 10 Mg Tablet 1 Tab PO DAILY 09/20/17 Reported Vitamin C (Ascorbic Acid) 500 Mg Tablet.er 500 Mg PO 09/20/17 Reported Aspirin 325 Mg Tablet 1 Tab PO DAILY 09/20/17 Reported Colace (Docusate Sodium) 100 Mg Capsule 1 Cap PO BID 09/20/17 Reported Magnesium Oxide 400 Mg Tablet 1 Tab PO DAILY 09/20/17 Reported Multivitamins (Multivitamin) 1 Each Tablet 1 Tab PO DAILY 09/20/17 Reported NICODERM CQ 14mg (Nicotine) 1 Each Patch.td24 1 Patch TP DAILY 09/20/17 Reported Miralax (Polyethylene Glycol 3350) 17 Gm Powd.pack 1 Packet PO DAILY 09/20/17 Reported Albuterol Sulfate Neb Soln (Albuterol Sulfate) 0.63 Mg/3 Ml Vial.neb 1 Vial NEB QID 09/20/17 Reported Prednisone 20 Mg Tablet 1 Tab PO DAILY 09/20/17 Reported Percocet 5-325 Mg Tablet (Oxycodone/Acetaminophen) 1 Each Tablet 1 Tab PO BID 3 07/31/17 Rx Seroquel (Quetiapine Fumarate) 25 Mg Tablet 1 Tab PO QHS 10/21/16 Reported Hydrochlorothiazide Tablet (Hydrochlorothiazide) 12.5 Mg Tablet 1 Tab PO QHS 10/21/16 Reported Lexapro (Escitalopram Oxalate) 20 Mg Tablet 1 Tab PO QHS 10/21/16 Reported Hydrocodone-Apap 10-325 (Hydrocodone Bit/Acetaminophen) 1 Each Tablet 1 Tab PO PRN Q4HRS 10/21/16 Reported Oxycontin (Oxycodone HCl) 10 Mg Tab.er.12h 10 Mg PO BID 10/21/16 Reported Impression . IMPRESSION: 1. Acute hypoxemic respiratory failure secondary to acute diastolic congestive heart failure, non-ST elevation myocardial infarction/SEPSIS 2. Abnormal chest x-ray/CHF PNEUMONIA 3. Acute diastolic congestive heart failure. 4. Chronic obstructive pulmonary disease with mild acute exacerbation. 5. Acute bronchitis/ASPIRATION PNEUMONIA 6. Smoker. 7. Leukocytosis. 8. History of cerebrovascular accident. 9. hypotension 10. NSTEMI PER CARD 11. ACUTE RENAL FAILURE CXR 02/14 ET tube tip terminates approximately 4 cm above the sohan. Right IJ vascular catheter tip projects over the distal SVC. Enteric tube extends beyond the diaphragm tip is not visualized. Cardiomediastinal silhouette is stable. Left lung base parenchymal opacities are also stable. Patchy medial right lung base opacities are also grossly stable. No definite pleural effusion. No pneumothorax. Electronically signed by: Onur Valencia MD (02/13/2018 5:23 PM) [facility] Plan . D/W PAT PALLIATIVE CARE I WOULD FAVOR D/C SUPPORT AND ALLOW NATURAL IT IS MY UNDERSTANDING THAT PT DID NOT WANT TO BE INTUBATED IN FIRST PLACE ANITBXN PER ID D/W DR DAVALOS FOLLOW CARD INPUT ABG AND CXR NOTED HEPARIN STARTED ON JUDE LAMAR MD Feb 15, 2018 08:52
--- NOTE | 2018-02-15 10:12 | PDOC ---
SUBJECTIVE ROS Intubated, black stool OBJECTIVE Vital Signs Vital Signs Date Time Temp Pulse Resp B/P (MAP) Pulse Ox O2 Delivery O2 Flow Rate FiO2 02/15/18 09:34 93 Ventilator 02/15/18 08:32 135 135/71 02/15/18 06:00 29 02/15/18 04:00 99.7 99.7 I & 0 Intake and Output 02/15/18 07:01 Intake Total 4430.4 ml Output Total 1090 ml Balance 3340.4 ml IV Total 1353.4 ml Tube Feeding 2452 ml Blood Product IV Normal Saline Flush 475 ml Other 150 ml Output Urine Total 240 ml Stool Total 700 ml Gastric Drainage Total 150 ml PHYSICAL EXAM Physical Exam GENERAL: Intubated HEENT: ETT, OGT NECK: supple LUNGS: Clear to auscultation. HEART: S1, S2. ABDOMEN: soft. Bowel sounds present. GENITOURINARY: Indwelling Forman in place. EXTREMITIES: Trace edema in lower extremities bilaterally. SKIN: No rash NEUROLOGIC: Alert some DIAGNOSIS/ASSESSMENT Assessment & Plan Acute renal failure --Initially Non Oliguric, sepsis / cardiorenal- likely acute tubular necrosis UOP had declined . Last 24 hrs improved uop HD- 02/13 x 2 , labs stable, Hold off today HD tomorrow CKD stage 3- likely based on previous labs in the system Hypokalemia- Normal Hypernatremia- Normal Na today On TF Anemia- Drop in Hgb , Black stool PRBC today , as per GI Non-ST elevation myocardial infarction. Troponin up to 44.56 Acute diastolic heart failure. Paroxysmal atrial fibrillation. Discussed with RN COMMENT/RELEVANT DATA Meds Current Medications Medications (Trade) Dose Ordered Sig/Sravan Start Time Stop Time Status Last Admin Dose Admin Acetaminophen (Tylenol Supp) 325 mg PRN Q6HRS PRN 02/09/18 06:45 02/09/18 09:30 325 MG Acetaminophen (Tylenol) 500 mg BID 02/09/18 10:00 02/09/18 10:16 DC Acetaminophen/ Hydrocodone Bitart (Lortab 10/325) 1 tab PRN Q4HRS PRN 02/09/18 09:00 Albumin Human 200 ml @ 200 mls/hr 1X PRN PRN 02/13/18 19:30 02/14/18 01:29 DC Albuterol Sulfate (Ventolin Neb Soln) 2.5 mg RTQID 02/09/18 12:00 02/15/18 07:05 2.5 MG Albuterol/ Ipratropium (Duoneb) 3 ml 1X ONCE 02/08/18 16:00 02/08/18 16:01 DC 02/08/18 17:14 3 ML Aspirin (Radha Aspirin) 325 mg DAILY 02/09/18 09:00 02/09/18 10:16 DC Aspirin (Children'S Aspirin) 81 mg DAILYWBKFT 02/12/18 16:15 02/15/18 08:31 81 MG Atorvastatin Calcium (Lipitor) 10 mg QHS 02/12/18 21:00 02/14/18 21:29 10 MG Budesonide (Pulmicort) 0.5 mg RTBID 02/09/18 08:00 02/15/18 07:07 0.5 MG Cefepime HCl (Maxipime) 1 gm QHS 02/13/18 21:00 02/13/18 21:00 DC Citalopram Hydrobromide (CeleXA) 40 mg QHS 02/09/18 21:00 02/09/18 21:00 DC Clonidine HCl (Catapres) 0.1 mg QHS 02/08/18 22:00 02/09/18 10:16 DC 02/08/18 22:05 0.1 MG Clopidogrel Bisulfate (Plavix) 75 mg DAILYWBKFT 02/13/18 16:00 02/15/18 08:31 75 MG Docusate Sodium (Colace) 100 mg BID 02/09/18 09:00 02/09/18 10:16 DC Ephedrine Sulfate (ePHEDrine PF IN SALINE SYRINGE) 50 mg STK-MED ONCE 02/09/18 07:00 02/11/18 07:43 DC Famotidine (Pepcid Vial) 20 mg QHS 02/09/18 21:00 02/13/18 14:47 DC 02/12/18 21:56 20 MG Fentanyl Citrate 30 ml @ 0 mls/hr CONT PRN 02/09/18 20:30 02/14/18 19:48 1.25 MLS/HR Furosemide (Lasix) 60 mg 1X ONCE 02/09/18 20:00 02/09/18 20:01 DC 02/09/18 20:16 60 MG Gabapentin (Neurontin) 300 mg TID 02/08/18 22:20 02/09/18 10:16 DC 02/08/18 22:08 300 MG Heparin Sodium (Porcine) (Heparin Sodium) 2,500 unit 1X ONCE 02/13/18 15:00 02/13/18 15:03 DC Heparin Sodium/ Dextrose 500 ml @ 0 mls/hr CONT PRN 02/08/18 17:30 02/13/18 08:22 DC 02/12/18 19:46 5.7 MLS/HR Hydrochlorothiazide (Microzide) 12.5 mg QHS 02/09/18 21:00 02/09/18 21:00 DC Info (Anti-Coagulation Monitoring By Pharmacy) 1 each PRN DAILY PRN 02/08/18 17:30 02/13/18 09:17 DC 02/11/18 12:25 1 EACH Info (PHARMACY MONITORING -- do not chart) 1 each PRN DAILY PRN 02/14/18 08:30 UNV Ipratropium [place] (Atrovent) 0.5 mg RTQID 02/09/18 08:00 02/14/18 19:59 0.5 MG Labetalol HCl (Normodyne Iv Push) 20 mg PRN Q2HR PRN 02/12/18 16:15 02/13/18 05:34 20 MG Lidocaine/Sodium Bicarbonate (Buffered Lidocaine 1%) 4 ml 1X ONCE 02/13/18 14:45 02/13/18 14:52 DC 02/13/18 14:57 4 ML Linezolid/Dextrose 300 ml @ 300 mls/hr Q12HR 02/12/18 09:00 02/15/18 08:32 300 MLS/HR Lorazepam (Ativan) 1 mg PRN Q4HRS PRN 02/08/18 21:30 02/15/18 04:02 1 MG Magnesium Hydroxide (Milk Of Magnesia) 400 mg DAILY 02/09/18 09:00 02/15/18 08:31 400 MG Magnesium Oxide (Magnesium Oxide) 400 mg DAILY 02/09/18 10:00 02/15/18 08:31 400 MG Magnesium Sulfate/ Dextrose 100 ml @ 25 mls/hr 1X ONCE 02/08/18 22:00 02/09/18 01:59 DC 02/08/18 22:03 25 MLS/HR Meropenem 500 mg/ Sodium Chloride 50 ml @ 100 mls/hr Q24H 02/13/18 16:00 02/14/18 08:07 100 MLS/HR Methylprednisolone Sodium Succinate (SOLU-Medrol 40MG VIAL) 40 mg Q12HR 02/10/18 09:00 02/15/18 08:30 40 MG Metoprolol Tartrate (Lopressor) 25 mg BID 02/13/18 11:00 02/15/18 08:32 25 MG Micafungin Sodium 100 mg/Dextrose 100 ml @ 100 mls/hr Q24H 02/12/18 10:00 02/15/18 08:34 100 MLS/HR Midazolam HCl (Versed) 5 mg STK-MED ONCE 02/13/18 15:30 02/14/18 09:00 DC Morphine Sulfate (Morphine Sulfate) 4 mg PRN Q4HRS PRN 02/08/18 21:30 02/09/18 19:45 4 MG Multivitamins (Thera M Plus) 1 tab DAILY 02/09/18 10:00 02/09/18 10:16 DC Nicotine (Nicoderm Cq 14mg) 1 patch DAILY 02/09/18 10:00 02/14/18 08:08 1 PATCH Non-Formulary Medication (Acetaminophen ) 1 tab BID 02/09/18 09:00 02/09/18 09:12 DC Non-Formulary Medication (Albuterol Sulfate (Albuterol Sulfate Neb Soln)) 1 vial QID 02/09/18 09:00 02/09/18 09:22 DC Non-Formulary Medication (Magnesium Oxide ) 1 tab DAILY 02/09/18 09:00 02/09/18 09:14 DC Non-Formulary Medication (Multivitamin (Multivitamins)) 1 tab DAILY 02/09/18 09:00 02/09/18 09:14 DC Non-Formulary Medication (Polyethylene Glycol 3350 (Miralax)) 1 packet DAILY 02/09/18 09:00 02/09/18 09:17 DC Norepinephrine Bitartrate 250 ml @ 1.875 mls/ hr CONT PRN 02/10/18 02:45 02/14/18 15:02 15 MLS/HR Ondansetron HCl (Zofran Odt) 4 mg Q6HRS 12/15/18 12:00 02/14/18 15:05 DC 02/14/18 05:52 4 MG Ondansetron HCl (Zofran) 4 mg PRN Q6HRS PRN 02/09/18 09:00 Oxycodone HCl (OxyCONTIN) 10 mg BID 02/09/18 09:00 02/09/18 10:16 DC Oxycodone/ Acetaminophen (Percocet 5/325) 1 tab BID 02/09/18 09:00 02/09/18 10:16 DC Pantoprazole Sodium (PROTONIX VIAL for IV PUSH) 40 mg BIDAC 02/13/18 16:30 02/15/18 08:31 40 MG Phenylephrine HCl (PHENYLEPHRINE in 0.9% NACL PF) 1 mg STK-MED ONCE 02/09/18 07:00 02/11/18 07:43 DC Piperacillin Sod/ Tazobactam Sod (Zosyn Per Pharmacy) 1 each PRN DAILY PRN 02/08/18 16:15 02/12/18 07:24 DC Piperacillin Sod/ Tazobactam Sod 2.25 gm/Sodium Chloride 50 ml @ 100 mls/hr Q6HRS 02/11/18 12:00 02/12/18 07:24 DC 02/12/18 05:47 100 MLS/HR Piperacillin Sod/ Tazobactam Sod 3.375 gm/Sodium Chloride 50 ml @ 100 mls/hr Q6HRS 02/09/18 00:00 02/11/18 07:14 DC 02/11/18 05:37 100 MLS/HR Polyethylene Glycol (miraLAX PACKET) 17 gm DAILY 02/09/18 10:00 02/09/18 10:16 DC Propofol (Diprivan) 200 mg STK-MED ONCE 02/09/18 07:00 02/11/18 07:43 DC Quetiapine Fumarate (SEROquel) 25 mg QHS 02/09/18 21:00 02/09/18 21:00 DC Rocuronium [place] (Zemuron) 50 mg STK-MED ONCE 02/09/18 21:00 02/11/18 08:22 DC Sodium Chloride 1,000 ml @ 400 mls/hr Q2H30M PRN 02/14/18 08:16 02/14/18 20:15 DC Succinylcholine Chloride (Anectine) 200 mg STK-MED ONCE 02/09/18 07:00 02/11/18 07:43 DC Tramadol HCl (Ultram) 50 mg PRN DAILY PRN 02/09/18 09:00 Vancomycin HCl (Vanco Per Pharmacy) 1 each PRN DAILY PRN 02/08/18 16:15 02/10/18 09:07 DC 02/09/18 08:59 1 EACH Vancomycin HCl (Vancomycin Trough Level) 1 each 1X ONCE 02/10/18 16:00 02/10/18 16:00 DC Vancomycin HCl 1.75 gm/Sodium Chloride 500 ml @ 250 mls/hr 1X ONCE 02/08/18 17:00 02/08/18 18:59 DC 02/08/18 16:36 250 MLS/HR Vancomycin HCl 1 gm/Sodium Chloride 250 ml @ 250 mls/hr Q24H 02/09/18 16:30 02/10/18 09:07 DC 02/09/18 16:30 250 MLS/HR Lab Laboratory Tests Test 02/14/18 12:44 02/15/18 05:40 White Blood Count 10.3 x10^3/uL (4.0-11.0) 13.9 x10^3/uL (4.0-11.0) Red Blood Count 2.48 x10^6/uL (3.50-5.40) 2.57 x10^6/uL (3.50-5.40) Hemoglobin 7.7 g/dL (12.0-15.5) 7.9 g/dL (12.0-15.5) Hematocrit 22.2 % (36.0-47.0) 23.0 % (36.0-47.0) Mean Corpuscular Volume 89 fL (79-100) 90 fL (79-100) Mean Corpuscular Hemoglobin 31 pg (25-35) 31 pg (25-35) Mean Corpuscular Hemoglobin Concent 35 g/dL (31-37) 34 g/dL (31-37) Red Cell Distribution Width 16.8 % (11.5-14.5) 17.2 % (11.5-14.5) Platelet Count 127 x10^3/uL (140-400) 223 x10^3/uL (140-400) Neutrophils (%) (Auto) 95 % (31-73) Lymphocytes (%) (Auto) 3 % (24-48) Monocytes (%) (Auto) 2 % (0-9) Eosinophils (%) (Auto) 0 % (0-3) Basophils (%) (Auto) 0 % (0-3) Neutrophils # (Auto) 13.2 x10^3uL (1.8-7.7) Lymphocytes # (Auto) 0.4 x10^3/uL (1.0-4.8) Monocytes # (Auto) 0.2 x10^3/uL (0.0-1.1) Eosinophils # (Auto) 0.0 x10^3/uL (0.0-0.7) Basophils # (Auto) 0.0 x10^3/uL (0.0-0.2) Sodium Level 139 mmol/L (136-145) Potassium Level 4.6 mmol/L (3.5-5.1) Chloride Level 102 mmol/L (98-107) Carbon Dioxide Level 26 mmol/L (21-32) Anion Gap 11 (6-14) Blood Urea Nitrogen 74 mg/dL (7-20) Creatinine 3.7 mg/dL (0.6-1.0) Estimated GFR (Cockcroft-Gault) 12.3 Glucose Level 149 mg/dL (70-99) Calcium Level 7.6 mg/dL (8.5-10.1) Magnesium Level 2.7 mg/dL (1.8-2.4) Results All relevant outside records, renal labs, imaging studies, telemetry/EKG's were reviewed. VINH BLACKBURN MD Feb 15, 2018 10:12
--- NOTE | 2018-02-15 10:31 | PDOC ---
Infectious Disease Note Subjective Subjective intubated , sedated ROS ROS no n/v/d/sob Vital Sign Vital Signs Vital Signs Date Time Temp Pulse Resp B/P (MAP) Pulse Ox O2 Delivery O2 Flow Rate FiO2 02/15/18 09:34 93 Ventilator 02/15/18 08:32 135 135/71 02/15/18 06:00 29 02/15/18 04:00 99.7 99.7 Physical Exam PHYSICAL EXAM GENERAL: Intubated and alert some HEENT: Pupils equally round & reactive. ETT, OGT NECK: supple LUNGS: Clear to auscultation. HEART: S1, S2. ABDOMEN: Obese, soft. No grimace or guarding to palpation. Bowel sounds present. GENITOURINARY: Indwelling Forman in place. EXTREMITIES: Trace edema in lower extremities bilaterally. No cyanosis. Mitts SKIN: Warm without rash. NEUROLOGIC: Alert some RIJ - clean ok Labs Lab Laboratory Tests Test 02/14/18 12:44 02/15/18 05:40 White Blood Count 10.3 x10^3/uL (4.0-11.0) 13.9 x10^3/uL (4.0-11.0) Red Blood Count 2.48 x10^6/uL (3.50-5.40) 2.57 x10^6/uL (3.50-5.40) Hemoglobin 7.7 g/dL (12.0-15.5) 7.9 g/dL (12.0-15.5) Hematocrit 22.2 % (36.0-47.0) 23.0 % (36.0-47.0) Mean Corpuscular Volume 89 fL (79-100) 90 fL (79-100) Mean Corpuscular Hemoglobin 31 pg (25-35) 31 pg (25-35) Mean Corpuscular Hemoglobin Concent 35 g/dL (31-37) 34 g/dL (31-37) Red Cell Distribution Width 16.8 % (11.5-14.5) 17.2 % (11.5-14.5) Platelet Count 127 x10^3/uL (140-400) 223 x10^3/uL (140-400) Neutrophils (%) (Auto) 95 % (31-73) Lymphocytes (%) (Auto) 3 % (24-48) Monocytes (%) (Auto) 2 % (0-9) Eosinophils (%) (Auto) 0 % (0-3) Basophils (%) (Auto) 0 % (0-3) Neutrophils # (Auto) 13.2 x10^3uL (1.8-7.7) Lymphocytes # (Auto) 0.4 x10^3/uL (1.0-4.8) Monocytes # (Auto) 0.2 x10^3/uL (0.0-1.1) Eosinophils # (Auto) 0.0 x10^3/uL (0.0-0.7) Basophils # (Auto) 0.0 x10^3/uL (0.0-0.2) Sodium Level 139 mmol/L (136-145) Potassium Level 4.6 mmol/L (3.5-5.1) Chloride Level 102 mmol/L (98-107) Carbon Dioxide Level 26 mmol/L (21-32) Anion Gap 11 (6-14) Blood Urea Nitrogen 74 mg/dL (7-20) Creatinine 3.7 mg/dL (0.6-1.0) Estimated GFR (Cockcroft-Gault) 12.3 Glucose Level 149 mg/dL (70-99) Calcium Level 7.6 mg/dL (8.5-10.1) Magnesium Level 2.7 mg/dL (1.8-2.4) Micro Microbiology 02/12/18 Blood Culture - Preliminary, Resulted NO GROWTH AFTER 1 DAY 02/10/18 - Final, Complete 02/10/18 - Final, Complete 02/10/18 - Final, Complete 02/10/18 Gram Stain Evaluation - Final, Complete 02/10/18 Sputum Culture - Final, Complete 02/10/18 Sputum Result 1 - Final, Complete Objective Assessment Fever times one overnight 02/11 - better Sputum with GPC from 02/10 Sepsis with lactic acidosis, present on admission.- better off Levophed Acute respiratory failure, likely aspirated. s/p intubation now on Solumedrol Hypotension resolved ANGELICA - Non-ST elevation myocardial infarction. Troponin up to 44.56 now Acute diastolic heart failure. Paroxysmal atrial fibrillation. Peripheral vascular disease. History of seizures. History of Clostridium difficile, with fecal transplant. Plan Plan of Care F/u Repeat Blood neg F/u sputum cults neg cont meropenem, d/c zyvox and micafungin Supportive care D/w ZOFIA STLIES MD Feb 15, 2018 10:31
--- NOTE | 2018-02-15 10:59 | PDOC ---
PROGRESS NOTES Chief Complaint Chief Complaint Acute hypoxic respiratory failure NOW IPPV (02/09/18), Dialysis began 02/13/18, patient tolerating well Spontaneous respiration on 40% O2, failed returned to Ventilator assisted breathing AC22/450/50% 5 peep Sedated with fentanyl Levophed drip COPD, Smoker - 1 ppday? Severe sepsis - with respiratory failure likely 2/2 pneumonia/bronchitis, fever 102.6F, leukocytosis, tachycardia, Acute diastolic heart failure - BNP of greater than 35,000. diuresis for pulmonary congestion PAD - with carotid, AAA, renovascular disease - cont asa plavix NSTEMI - elevated troponin at 17. Paroxysmal atrial fibrillation. Now in sinus rhythm. on coumadin, INR subtherapeutic, History of a previous CVA - Acute metabolic encephalopathy secondary to multifactorial see above ANGELICA, VMN - new (02/10/18) History of Present Illness History of Present Illness pt. was seen and examined in ICU Sedated with fentanyl Vitals Vitals Vital Signs Date Time Temp Pulse Resp B/P (MAP) Pulse Ox O2 Delivery O2 Flow Rate FiO2 02/15/18 10:46 92 Ventilator 02/15/18 08:32 135 135/71 02/15/18 06:00 29 02/15/18 04:00 99.7 99.7 Physical Exam Physical Exam GENERAL: Intubated and alert some HEENT: Pupils equally round & reactive. ETT, OGT NECK: supple LUNGS: Clear to auscultation. HEART: S1, S2. ABDOMEN: Obese, soft. No grimace or guarding to palpation. Bowel sounds present. GENITOURINARY: Indwelling Forman in place. EXTREMITIES: Trace edema in lower extremities bilaterally. No cyanosis. Mitts SKIN: Warm without rash. NEUROLOGIC: Alert some RIJ - clean ok General: Other (intubated) Heart: Regular rate Lungs: Crackles Abdomen: Normal bowel sounds Extremities: No clubbing, No cyanosis, No edema, Normal pulses, No tenderness/ swelling Skin: No rashes, No breakdown, No significant lesion Labs LABS Laboratory Tests Test 02/14/18 12:44 02/15/18 05:40 White Blood Count 10.3 x10^3/uL (4.0-11.0) 13.9 x10^3/uL (4.0-11.0) Red Blood Count 2.48 x10^6/uL (3.50-5.40) 2.57 x10^6/uL (3.50-5.40) Hemoglobin 7.7 g/dL (12.0-15.5) 7.9 g/dL (12.0-15.5) Hematocrit 22.2 % (36.0-47.0) 23.0 % (36.0-47.0) Mean Corpuscular Volume 89 fL (79-100) 90 fL (79-100) Mean Corpuscular Hemoglobin 31 pg (25-35) 31 pg (25-35) Mean Corpuscular Hemoglobin Concent 35 g/dL (31-37) 34 g/dL (31-37) Red Cell Distribution Width 16.8 % (11.5-14.5) 17.2 % (11.5-14.5) Platelet Count 127 x10^3/uL (140-400) 223 x10^3/uL (140-400) Neutrophils (%) (Auto) 95 % (31-73) Lymphocytes (%) (Auto) 3 % (24-48) Monocytes (%) (Auto) 2 % (0-9) Eosinophils (%) (Auto) 0 % (0-3) Basophils (%) (Auto) 0 % (0-3) Neutrophils # (Auto) 13.2 x10^3uL (1.8-7.7) Lymphocytes # (Auto) 0.4 x10^3/uL (1.0-4.8) Monocytes # (Auto) 0.2 x10^3/uL (0.0-1.1) Eosinophils # (Auto) 0.0 x10^3/uL (0.0-0.7) Basophils # (Auto) 0.0 x10^3/uL (0.0-0.2) Sodium Level 139 mmol/L (136-145) Potassium Level 4.6 mmol/L (3.5-5.1) Chloride Level 102 mmol/L (98-107) Carbon Dioxide Level 26 mmol/L (21-32) Anion Gap 11 (6-14) Blood Urea Nitrogen 74 mg/dL (7-20) Creatinine 3.7 mg/dL (0.6-1.0) Estimated GFR (Cockcroft-Gault) 12.3 Glucose Level 149 mg/dL (70-99) Calcium Level 7.6 mg/dL (8.5-10.1) Magnesium Level 2.7 mg/dL (1.8-2.4) Review of Systems Review of Systems unable to obtain Assessment and Plan Assessmemt and Plan Assessment Acute hypoxic respiratory failure NOW IPPV (02/09/18) Dialysis began 02/13/18, patient tolerating well returned to Ventilator assisted breathing AC22/450/50% 5 peep 02/15/18 Spontaneous respiration on 40% O2 Sedated with fentanyl Levophed drip COPD, Smoker - 1 ppday? Severe sepsis - with respiratory failure likely 2/2 pneumonia/bronchitis, fever 102.6F, leukocytosis, tachycardia, Acute diastolic heart failure - BNP of greater than 35,000. diuresis for pulmonary congestion PAD - with carotid, AAA, renovascular disease - cont asa plavix NSTEMI - elevated troponin at 17. Paroxysmal atrial fibrillation. Now in sinus rhythm. on coumadin, INR subtherapeutic, History of a previous CVA - Acute metabolic encephalopathy secondary to multifactorial see above ANGELICA, VMN - new (02/10/18) Plan Ventilator assisted breathing AC22/450/50% 5 peep 02/14/18 sat 92% Forman to BSD HD began 02/13/18 ICU monitoring Back on Ventilation Recheck Labs OG feeds 45cc/hr Comment Review of Relevant I have reviewed the following items pat (where applicable) has been applied. Labs Laboratory Tests Test 02/13/18 13:00 02/13/18 14:30 02/13/18 19:10 02/14/18 05:00 Heparin Anti-Xa Act, Unfractionated 0.41 IU/mL (0.30-0.70) Hepatitis B Surface Antigen Nonreactive (Nonreactive) Hepatitis B Surface Antibody, Quant <3.1 mIU/mL (Immunity>9.9) O2 Saturation 92 % (92-99) Arterial Blood pH 7.34 (7.35-7.45) Arterial Blood pH (Temp corrected) 7.31 Arterial Blood pCO2 at Patient Temp 36 mmHg (35-46) Arterial Blood pCO2 (Temp correct) 40 mmHg Arterial Blood pO2 at Patient Temp 74 mmHg (65-108) Arterial Blood pO2 (Temp corrected) 85 mmHg Arterial Blood HCO3 19 mmol/L (21-28) Arterial Blood Base Excess -6 mmol/L (-3-3) FiO2 40 Urine Collection Type Unknown Urine Color Yellow Urine Clarity Cloudy Urine pH 5.5 Urine Specific [place] 1.015 Urine Protein 100 mg/dL (NEG-TRACE) Urine Glucose (UA) Negative mg/dL (NEG) Urine Ketones (Stick) Negative mg/dL (NEG) Urine Blood Small (NEG) Urine Nitrite Negative (NEG) Urine Bilirubin Negative (NEG) Urine Urobilinogen Dipstick 0.2 mg/dL (0.2 mg/dL) Urine Leukocyte Esterase Negative (NEG) Urine RBC Occ /HPF (0-2) Urine WBC Occ /HPF (0-4) Urine Squamous Epithelial Cells Few /LPF Urine Amorphous Sediment Present /HPF Urine Bacteria 0 /HPF (0-FEW) Urine Granular Casts Few /HPF Urine Mucus Mod /LPF White Blood Count 8.5 x10^3/uL (4.0-11.0) Red Blood Count 2.66 x10^6/uL (3.50-5.40) Hemoglobin 8.2 g/dL (12.0-15.5) Hematocrit 23.9 % (36.0-47.0) Mean Corpuscular Volume 90 fL (79-100) Mean Corpuscular Hemoglobin 31 pg (25-35) Mean Corpuscular Hemoglobin Concent 34 g/dL (31-37) Red Cell Distribution Width 16.7 % (11.5-14.5) Platelet Count 137 x10^3/uL (140-400) Neutrophils (%) (Auto) 90 % (31-73) Lymphocytes (%) (Auto) 7 % (24-48) Monocytes (%) (Auto) 3 % (0-9) Eosinophils (%) (Auto) 0 % (0-3) Basophils (%) (Auto) 0 % (0-3) Neutrophils # (Auto) 7.6 x10^3uL (1.8-7.7) Lymphocytes # (Auto) 0.6 x10^3/uL (1.0-4.8) Monocytes # (Auto) 0.3 x10^3/uL (0.0-1.1) Eosinophils # (Auto) 0.0 x10^3/uL (0.0-0.7) Basophils # (Auto) 0.0 x10^3/uL (0.0-0.2) Sodium Level 143 mmol/L (136-145) Potassium Level 4.2 mmol/L (3.5-5.1) Chloride Level 107 mmol/L (98-107) Carbon Dioxide Level 23 mmol/L (21-32) Anion Gap 13 (6-14) Blood Urea Nitrogen 100 mg/dL (7-20) Creatinine 4.2 mg/dL (0.6-1.0) Estimated GFR (Cockcroft-Gault) 10.6 Glucose Level 180 mg/dL (70-99) Calcium Level 7.3 mg/dL (8.5-10.1) Magnesium Level 2.6 mg/dL (1.8-2.4) Test 02/14/18 12:44 02/15/18 05:40 White Blood Count 10.3 x10^3/uL (4.0-11.0) 13.9 x10^3/uL (4.0-11.0) Red Blood Count 2.48 x10^6/uL (3.50-5.40) 2.57 x10^6/uL (3.50-5.40) Hemoglobin 7.7 g/dL (12.0-15.5) 7.9 g/dL (12.0-15.5) Hematocrit 22.2 % (36.0-47.0) 23.0 % (36.0-47.0) Mean Corpuscular Volume 89 fL (79-100) 90 fL (79-100) Mean Corpuscular Hemoglobin 31 pg (25-35) 31 pg (25-35) Mean Corpuscular Hemoglobin Concent 35 g/dL (31-37) 34 g/dL (31-37) Red Cell Distribution Width 16.8 % (11.5-14.5) 17.2 % (11.5-14.5) Platelet Count 127 x10^3/uL (140-400) 223 x10^3/uL (140-400) Neutrophils (%) (Auto) 95 % (31-73) Lymphocytes (%) (Auto) 3 % (24-48) Monocytes (%) (Auto) 2 % (0-9) Eosinophils (%) (Auto) 0 % (0-3) Basophils (%) (Auto) 0 % (0-3) Neutrophils # (Auto) 13.2 x10^3uL (1.8-7.7) Lymphocytes # (Auto) 0.4 x10^3/uL (1.0-4.8) Monocytes # (Auto) 0.2 x10^3/uL (0.0-1.1) Eosinophils # (Auto) 0.0 x10^3/uL (0.0-0.7) Basophils # (Auto) 0.0 x10^3/uL (0.0-0.2) Sodium Level 139 mmol/L (136-145) Potassium Level 4.6 mmol/L (3.5-5.1) Chloride Level 102 mmol/L (98-107) Carbon Dioxide Level 26 mmol/L (21-32) Anion Gap 11 (6-14) Blood Urea Nitrogen 74 mg/dL (7-20) Creatinine 3.7 mg/dL (0.6-1.0) Estimated GFR (Cockcroft-Gault) 12.3 Glucose Level 149 mg/dL (70-99) Calcium Level 7.6 mg/dL (8.5-10.1) Magnesium Level 2.7 mg/dL (1.8-2.4) Laboratory Tests Test 02/14/18 12:44 02/15/18 05:40 White Blood Count 10.3 x10^3/uL (4.0-11.0) 13.9 x10^3/uL (4.0-11.0) Red Blood Count 2.48 x10^6/uL (3.50-5.40) 2.57 x10^6/uL (3.50-5.40) Hemoglobin 7.7 g/dL (12.0-15.5) 7.9 g/dL (12.0-15.5) Hematocrit 22.2 % (36.0-47.0) 23.0 % (36.0-47.0) Mean Corpuscular Volume 89 fL (79-100) 90 fL (79-100) Mean Corpuscular Hemoglobin 31 pg (25-35) 31 pg (25-35) Mean Corpuscular Hemoglobin Concent 35 g/dL (31-37) 34 g/dL (31-37) Red Cell Distribution Width 16.8 % (11.5-14.5) 17.2 % (11.5-14.5) Platelet Count 127 x10^3/uL (140-400) 223 x10^3/uL (140-400) Neutrophils (%) (Auto) 95 % (31-73) Lymphocytes (%) (Auto) 3 % (24-48) Monocytes (%) (Auto) 2 % (0-9) Eosinophils (%) (Auto) 0 % (0-3) Basophils (%) (Auto) 0 % (0-3) Neutrophils # (Auto) 13.2 x10^3uL (1.8-7.7) Lymphocytes # (Auto) 0.4 x10^3/uL (1.0-4.8) Monocytes # (Auto) 0.2 x10^3/uL (0.0-1.1) Eosinophils # (Auto) 0.0 x10^3/uL (0.0-0.7) Basophils # (Auto) 0.0 x10^3/uL (0.0-0.2) Sodium Level 139 mmol/L (136-145) Potassium Level 4.6 mmol/L (3.5-5.1) Chloride Level 102 mmol/L (98-107) Carbon Dioxide Level 26 mmol/L (21-32) Anion Gap 11 (6-14) Blood Urea Nitrogen 74 mg/dL (7-20) Creatinine 3.7 mg/dL (0.6-1.0) Estimated GFR (Cockcroft-Gault) 12.3 Glucose Level 149 mg/dL (70-99) Calcium Level 7.6 mg/dL (8.5-10.1) Magnesium Level 2.7 mg/dL (1.8-2.4) Microbiology 02/12/18 Blood Culture - Preliminary, Resulted NO GROWTH AFTER 2 DAYS 02/10/18 - Final, Complete 02/10/18 - Final, Complete 02/10/18 - Final, Complete 02/10/18 Gram Stain Evaluation - Final, Complete 02/10/18 Sputum Culture - Final, Complete 02/10/18 Sputum Result 1 - Final, Complete Medications Current Medications Albuterol/ Ipratropium (Duoneb) 3 ml 1X ONCE NEB Last administered on at 17:14; Start 02/08/18 at 16:00; Stop 02/08/18 at 16:01; Status DC Vancomycin HCl (Vanco Per Pharmacy) 1 each PRN DAILY PRN MC SEE COMMENTS Last administered on 02/09/18at 08:59; Start 02/08/18 at 16:15; Stop 02/10/18 at 09 :07; Status DC Piperacillin Sod/ Tazobactam Sod (Zosyn Per Pharmacy) 1 each PRN DAILY PRN MC SEE COMMENTS; Start 02/08/18 at 16:15; Stop 02/12/18 at 07:24; Status DC Vancomycin HCl 1.75 gm/Sodium Chloride 500 ml @ 250 mls/hr 1X ONCE IV Last administered on 02/08/18at 16:36; Start 02/08/18 at 17:00; Stop 02/08/18 at 18 :59; Status DC Piperacillin Sod/ Tazobactam Sod 3.375 gm/Sodium Chloride 50 ml @ 100 mls/hr 1X ONCE IV Last administered on 02/08/18at 16:36; Start 02/08/18 at 16:30; Stop 02/08/18 at 16:59; Status DC Furosemide (Lasix) 20 mg 1X ONCE IVP Last administered on 02/08/18at 16:36; Start 02/08/18 at 16:30; Stop 02/08/18 at 16:31; Status DC Aspirin (Children'S Aspirin) 324 mg 1X ONCE PO Last administered on at 16:36; Start 02/08/18 at 16:30; Stop 02/08/18 at 16:31; Status DC Furosemide (Lasix) 20 mg 1X ONCE IVP Last administered on 02/08/18at 18:07; Start 02/08/18 at 17:00; Stop 02/08/18 at 17:01; Status DC Ondansetron HCl (Zofran) 4 mg 1X ONCE IV Last administered on 02/08/18at 17:00 ; Start 02/08/18 at 17:00; Stop 02/08/18 at 17:01; Status DC Ondansetron HCl (Zofran) 4 mg STK-MED ONCE .ROUTE ; Start 02/08/18 at 16:51; Stop 02/08/18 at 16:52; Status DC Heparin Sodium/ Dextrose 500 ml @ 0 mls/hr CONT PRN IV SEE I/O RECORD; Start 02/08/18 at 17:30; Status UNV Info (Anti-Coagulation Monitoring By Pharmacy) 1 each PRN DAILY PRN MC SEE COMMENTS Last administered on 02/11/18at 12:25; Start 02/08/18 at 17:30; Stop 02/13/18 at 09:17; Status DC Heparin Sodium/ Dextrose 500 ml @ 0 mls/hr CONT PRN IV SEE I/O RECORD Last administered on 02/12/18at 19:46; Start 02/08/18 at 17:30; Stop 02/13/18 at 08 :22; Status DC Heparin Sodium (Porcine) (Heparin Sodium) 1,800 unit PRN Q6HRS PRN IV FOR UFH LEVEL LESS THAN 0.2 Last administered on 02/08/18at 20:10; Start 02/08/18 at 17 :30; Stop 02/13/18 at 08:22; Status DC Ondansetron HCl (Zofran) 4 mg 1X PRN PRN IV NAUSEA/VOMITING; Start 02/08/18 at 18:00; Stop 02/09/18 at 09:06; Status DC Piperacillin Sod/ Tazobactam Sod 3.375 gm/Sodium Chloride 50 ml @ 100 mls/hr Q6HRS IV Last administered on 02/11/18at 05:37; Start 02/09/18 at 00:00; Stop 02/11/18 at 07:14; Status DC Vancomycin HCl 1 gm/Sodium Chloride 250 ml @ 250 mls/hr Q24H IV Last administered on 02/09/18at 16:30; Start 02/09/18 at 16:30; Stop 02/10/18 at 09 :07; Status DC Vancomycin HCl (Vancomycin Trough Level) 1 each 1X ONCE MC ; Start 02/10/18 at 16:00; Stop 02/10/18 at 16:00; Status DC Magnesium Sulfate/ Dextrose 100 ml @ 25 mls/hr 1X ONCE IV Last administered on 02/08/18at 22:03; Start 02/08/18 at 22:00; Stop 02/09/18 at 01:59; Status DC Aspirin (Radha Aspirin) 325 mg DAILY PO ; Start 02/09/18 at 09:00; Stop at 10:16; Status DC Atorvastatin Calcium (Lipitor) 10 mg HS PO ; Start 02/09/18 at 21:00; Stop at 21:00; Status DC Clonidine HCl (Catapres) 0.1 mg QHS PO Last administered on 02/08/18at 22:05; Start 02/08/18 at 22:00; Stop 02/09/18 at 10:16; Status DC Docusate Sodium (Colace) 100 mg BID PO ; Start 02/09/18 at 09:00; Stop at 10:16; Status DC Gabapentin (Neurontin) 300 mg TID PO Last administered on 02/08/18at 22:08; Start 02/08/18 at 22:20; Stop 02/09/18 at 10:16; Status DC Labetalol HCl (Normodyne Iv Push) 10 mg PRN Q2HR PRN IVP HYPERTENSION, SEE COMMENTS Last administered on 02/12/18at 15:12; Start 02/08/18 at 21:30; Stop 02/12/18 at 16:22; Status DC Lorazepam (Ativan) 1 mg PRN Q4HRS PRN IV ANXIETY / AGITATION Last administered on 02/15/18at 04:02; Start 02/08/18 at 21:30 Morphine Sulfate (Morphine Sulfate) 4 mg PRN Q4HRS PRN IV PAIN Last administered on 02/09/18at 19:45; Start 02/08/18 at 21:30 Acetaminophen (Tylenol Supp) 325 mg PRN Q6HRS PRN WA MILD PAIN / TEMP Last administered on 02/09/18at 09:30; Start 02/09/18 at 06:45 Ipratropium [place] (Atrovent) 0.5 mg RTQID NEB Last administered on at 19:59; Start 02/09/18 at 08:00 Budesonide (Pulmicort) 0.5 mg RTBID NEB Last administered on 02/15/18at 07:07; Start 02/09/18 at 08:00 Famotidine (Pepcid Vial) 20 mg QHS IVP Last administered on 02/12/18at 21:56; Start 02/09/18 at 21:00; Stop 02/13/18 at 14:47; Status DC Acetaminophen (Tylenol) 500 mg PRN Q6HRS PRN PO FEVER/KUO Last administered on 02/14/18at 17:23; Start 02/09/18 at 09:00 Ondansetron HCl (Zofran) 4 mg PRN Q6HRS PRN IV NAUSEA/VOMITING; Start at 09:00 Ondansetron HCl (Zofran Odt) 4 mg PRN Q6HRS PRN PO NAUSEA/VOMITING; Start at 09:00 Acetaminophen/ Hydrocodone Bitart (Lortab 10/325) 1 tab PRN Q4HRS PRN PO MODERATE PAIN; Start 02/09/18 at 09:00 Magnesium Hydroxide (Milk Of Magnesia) 400 mg DAILY PO Last administered on at 08:31; Start 02/09/18 at 09:00 Oxycodone HCl (OxyCONTIN) 10 mg BID PO ; Start 02/09/18 at 09:00; Stop at 10:16; Status DC Oxycodone/ Acetaminophen (Percocet 5/325) 1 tab BID PO ; Start 02/09/18 at 09: 00; Stop 02/09/18 at 10:16; Status DC Tramadol HCl (Ultram) 50 mg PRN DAILY PRN PO MILD PAIN; Start 02/09/18 at 09: 00 Non-Formulary Medication (Acetaminophen ) 1 tab BID PO ; Start 02/09/18 at 09: 00; Stop 02/09/18 at 09:12; Status DC Non-Formulary Medication (Albuterol Sulfate (Albuterol Sulfate Neb Soln)) 1 vial QID NEB ; Start 02/09/18 at 09:00; Stop 02/09/18 at 09:22; Status DC Citalopram Hydrobromide (CeleXA) 40 mg QHS PO ; Start 02/09/18 at 21:00; Stop 02/09/18 at 21:00; Status DC Hydrochlorothiazide (Microzide) 12.5 mg QHS PO ; Start 02/09/18 at 21:00; Stop 02/09/18 at 21:00; Status DC Non-Formulary Medication (Magnesium Oxide ) 1 tab DAILY PO ; Start 02/09/18 at 09:00; Stop 02/09/18 at 09:14; Status DC Non-Formulary Medication (Multivitamin (Multivitamins)) 1 tab DAILY PO ; Start 02/09/18 at 09:00; Stop 02/09/18 at 09:14; Status DC Nicotine (Nicoderm Cq 14mg) 1 patch DAILY TD Last administered on 02/14/18at 08 :08; Start 02/09/18 at 10:00 Ondansetron HCl (Zofran Odt) 4 mg Q6HRS PO Last administered on 02/14/18at 05: 52; Start 02/09/18 at 12:00; Stop 02/14/18 at 15:05; Status DC Non-Formulary Medication (Polyethylene Glycol 3350 (Miralax)) 1 packet DAILY PO ; Start 02/09/18 at 09:00; Stop 02/09/18 at 09:17; Status DC Quetiapine Fumarate (SEROquel) 25 mg QHS PO ; Start 02/09/18 at 21:00; Stop at 21:00; Status DC Labetalol HCl (Normodyne Iv Push) 10 mg PRN Q2HR PRN IVP HYPERTENSION, SEE COMMENTS; Start 02/09/18 at 09:00; Stop 02/09/18 at 09:06; Status DC Acetaminophen (Tylenol) 500 mg BID PO ; Start 02/09/18 at 10:00; Stop at 10:16; Status DC Magnesium Oxide (Magnesium Oxide) 400 mg DAILY PO Last administered on at 08:31; Start 02/09/18 at 10:00 Multivitamins (Thera M Plus) 1 tab DAILY PO ; Start 02/09/18 at 10:00; Stop at 10:16; Status DC Polyethylene Glycol (miraLAX PACKET) 17 gm DAILY PO ; Start 02/09/18 at 10:00; Stop 02/09/18 at 10:16; Status DC Albuterol Sulfate (Ventolin Neb Soln) 2.5 mg RTQID NEB Last administered on at 10:45; Start 02/09/18 at 12:00 Furosemide (Lasix) 60 mg 1X ONCE IVP Last administered on 02/09/18at 20:16; Start 02/09/18 at 20:00; Stop 02/09/18 at 20:01; Status DC Rocuronium [place] (Zemuron) 50 mg STK-MED ONCE .ROUTE ; Start 02/09/18 at 20: 23; Stop 02/09/18 at 20:24; Status DC Fentanyl Citrate 30 ml @ 0 mls/hr CONT PRN IV SEE PROTOCOL Last administered on 02/14/18at 19:48; Start 02/09/18 at 20:30 Propofol 100 ml @ 0 mls/hr CONT PRN IV SEE PROTOCOL Last administered on at 14:09; Start 02/09/18 at 20:30 Midazolam HCl 100 ml @ 5 mls/hr CONT PRN IV SEE I/O RECORD Last administered on 02/12/18at 03:38; Start 02/09/18 at 22:00; Stop 02/13/18 at 17:22; Status DC Norepinephrine Bitartrate 250 ml @ As Directed STK-MED ONCE IV ; Start at 02:33; Stop 02/10/18 at 02:35; Status DC Norepinephrine Bitartrate 250 ml @ 1.875 mls/ hr CONT PRN IV SEE I/O RECORD Last administered on 02/14/18at 15:02; Start 02/10/18 at 02:45 Methylprednisolone Sodium Succinate (SOLU-Medrol 40MG VIAL) 40 mg Q12HR IV Last administered on 02/15/18at 08:30; Start 02/10/18 at 09:00 Piperacillin Sod/ Tazobactam Sod 2.25 gm/Sodium Chloride 50 ml @ 100 mls/hr Q6HRS IV Last administered on 02/12/18at 05:47; Start 02/11/18 at 12:00; Stop 02/12/18 at 07:24; Status DC Propofol (Diprivan) 200 mg STK-MED ONCE IV ; Start 02/09/18 at 07:00; Stop at 07:43; Status DC Succinylcholine Chloride (Anectine) 200 mg STK-MED ONCE .ROUTE ; Start at 07:00; Stop 02/11/18 at 07:43; Status DC Phenylephrine HCl (PHENYLEPHRINE in 0.9% NACL PF) 1 mg STK-MED ONCE IV ; Start 02/09/18 at 07:00; Stop 02/11/18 at 07:43; Status DC Ephedrine Sulfate (ePHEDrine PF IN SALINE SYRINGE) 50 mg STK-MED ONCE IV ; Start 02/09/18 at 07:00; Stop 02/11/18 at 07:43; Status DC Rocuronium [place] (Zemuron) 50 mg STK-MED ONCE .ROUTE ; Start 02/09/18 at 21: 00; Stop 02/11/18 at 08:22; Status DC Linezolid/Dextrose 300 ml @ 300 mls/hr Q12HR IV Last administered on at 08:32; Start 02/12/18 at 09:00; Stop 02/15/18 at 10:31; Status DC Micafungin Sodium 100 mg/Dextrose 100 ml @ 100 mls/hr Q24H IV Last administered on 02/15/18at 08:34; Start 02/12/18 at 10:00; Stop 02/15/18 at 10 :31; Status DC Cefepime HCl (Maxipime) 1 gm Q12HR IVP Last administered on 02/13/18at 08:19; Start 02/12/18 at 09:00; Stop 02/13/18 at 10:56; Status DC Atorvastatin Calcium (Lipitor) 10 mg QHS PO Last administered on 02/14/18at 21: 29; Start 02/12/18 at 21:00 Labetalol HCl (Normodyne Iv Push) 20 mg PRN Q2HR PRN IVP HYPERTENSION, SEE COMMENTS Last administered on 02/13/18at 05:34; Start 02/12/18 at 16:15 Aspirin (Children'S Aspirin) 81 mg DAILYWBKFT PO Last administered on at 08:31; Start 02/12/18 at 16:15 Metoprolol Tartrate (Lopressor) 25 mg BID PO Last administered on 02/15/18at 08 :32; Start 02/13/18 at 11:00 Cefepime HCl (Maxipime) 1 gm QHS IVP ; Start 02/13/18 at 21:00; Stop 02/13/18 at 21:00; Status DC Lidocaine/Sodium Bicarbonate (Buffered Lidocaine 1%) 3 ml STK-MED ONCE .ROUTE ; Start 02/13/18 at 13:32; Stop 02/13/18 at 13:33; Status DC Heparin Sodium (Porcine) (Heparin Sodium) 10,000 unit STK-MED ONCE .ROUTE ; Start 02/13/18 at 13:32; Stop 02/13/18 at 13:33; Status DC Midazolam HCl (Versed) 5 mg STK-MED ONCE .ROUTE ; Start 02/13/18 at 14:04; Stop 02/13/18 at 14:05; Status DC Midazolam HCl (Versed) 5 mg 1X ONCE IV Last administered on 02/13/18at 14:10; Start 02/13/18 at 14:15; Stop 02/13/18 at 14:16; Status DC Lidocaine/Sodium Bicarbonate (Buffered Lidocaine 1%) 4 ml 1X ONCE INJ Last administered on 02/13/18at 14:57; Start 02/13/18 at 14:45; Stop 02/13/18 at 14 :52; Status DC Heparin Sodium (Porcine) (Heparin Sodium) 2,200 unit 1X ONCE INT CAT Last administered on 02/13/18at 15:02; Start 02/13/18 at 14:45; Stop 02/13/18 at 14 :52; Status DC Pantoprazole Sodium (PROTONIX VIAL for IV PUSH) 40 mg BIDAC IVP Last administered on 02/15/18at 08:31; Start 02/13/18 at 16:30 Heparin Sodium (Porcine) (Heparin Sodium) 2,500 unit 1X ONCE INT CAT ; Start 02/13/18 at 15:00; Stop 02/13/18 at 15:03; Status DC Meropenem 500 mg/ Sodium Chloride 50 ml @ 100 mls/hr Q24H IV Last administered on 02/14/18at 08:07; Start 02/13/18 at 16:00 Midazolam HCl 100 ml @ 5 mls/hr CONT PRN IV SEE I/O RECORD Last administered on 02/15/18at 05:58; Start 02/13/18 at 15:15 Midazolam HCl (Versed) 5 mg STK-MED ONCE .ROUTE ; Start 02/13/18 at 15:15; Stop 02/13/18 at 15:16; Status DC Clopidogrel Bisulfate (Plavix) 75 mg [id number] PO Last administered on at 08:31; Start 02/13/18 at 16:00 Sodium Chloride 1,000 ml @ 1,000 mls/hr Q1H PRN IV hypotension; Start at 19:27; Stop 02/14/18 at 01:26; Status DC Albumin Human 200 ml @ 200 mls/hr 1X PRN PRN IV Hypotension; Start 02/13/18 at 19:30; Stop 02/14/18 at 01:29; Status DC Sodium Chloride 1,000 ml @ 400 mls/hr Q2H30M PRN IV PATENCY; Start 02/13/18 at 19:27; Stop 02/14/18 at 07:26; Status DC Info (PHARMACY MONITORING -- do not chart) 1 each PRN DAILY PRN MC SEE COMMENTS ; Start 02/13/18 at 19:30 Info (PHARMACY MONITORING -- do not chart) 1 each PRN DAILY PRN MC SEE COMMENTS ; Start 02/13/18 at 19:30; Status UNV Sodium Chloride 1,000 ml @ 1,000 mls/hr Q1H PRN IV hypotension; Start at 08:16; Stop 02/14/18 at 14:15; Status DC Sodium Chloride 1,000 ml @ 400 mls/hr Q2H30M PRN IV PATENCY; Start 02/14/18 at 08:16; Stop 02/14/18 at 20:15; Status DC Info (PHARMACY MONITORING -- do not chart) 1 each PRN DAILY PRN MC SEE COMMENTS ; Start 02/14/18 at 08:30; Status UNV Midazolam HCl (Versed) 5 mg STK-MED ONCE .ROUTE ; Start 02/13/18 at 15:30; Stop 02/14/18 at 09:00; Status DC Active Scripts Active Percocet 5-325 Mg Tablet (Oxycodone/Acetaminophen) 1 Each Tablet 1 Tab PO BID 3 Days Reported Zofran (Ondansetron Hcl) 4 Mg Tablet 1 Tab PO Q6HRS Milk Of Magnesia (Magnesium Hydroxide) 400 Mg/5 Ml Oral.susp 400 Mg PO Acetaminophen 500 Mg Tablet 1 Tab PO BID Clonidine Hcl 0.1 Mg Tablet 1 Tab PO QHS Tramadol Hcl 50 Mg Tablet 50 Mg PO DAILY PRN Hydralazine Hcl 20 Mg/1 Ml Vial 20 Mg IJ Gabapentin (Gabapentin) 300 Mg Capsule 300 Mg PO TID Acidophilus (Lactobacillus Acidophilus) 1 Each Capsule 1 Each PO Atorvastatin Calcium 10 Mg Tablet 1 Tab PO DAILY Vitamin C (Ascorbic Acid) 500 Mg Tablet.er 500 Mg PO Aspirin 325 Mg Tablet 1 Tab PO DAILY Colace (Docusate Sodium) 100 Mg Capsule 1 Cap PO BID Magnesium Oxide 400 Mg Tablet 1 Tab PO DAILY Multivitamins (Multivitamin) 1 Each Tablet 1 Tab PO DAILY NICODERM CQ 14mg (Nicotine) 1 Each Patch.td24 1 Patch TP DAILY Miralax (Polyethylene Glycol 3350) 17 Gm Powd.pack 1 Packet PO DAILY Albuterol Sulfate Neb Soln (Albuterol Sulfate) 0.63 Mg/3 Ml Vial.neb 1 Vial NEB QID Prednisone 20 Mg Tablet 1 Tab PO DAILY Seroquel (Quetiapine Fumarate) 25 Mg Tablet 1 Tab PO QHS Hydrochlorothiazide Tablet (Hydrochlorothiazide) 12.5 Mg Tablet 1 Tab PO QHS Lexapro (Escitalopram Oxalate) 20 Mg Tablet 1 Tab PO QHS Hydrocodone-Apap 10-325 (Hydrocodone Bit/Acetaminophen) 1 Each Tablet 1 Tab PO PRN Q4HRS Oxycontin (Oxycodone HCl) 10 Mg Tab.er.12h 10 Mg PO BID Vitals/I & O Vital Sign - Last 24 Hours 02/14/18 02/14/18 02/14/18 02/14/18 11:00 12:00 12:00 13:00 Temp 99.6 98.8 99.6 98.8 Pulse 110 101 98 Resp 21 19 20 B/P (MAP) 77/48 (58) 133/68 (89) 114/61 (78) Pulse Ox 94 94 95 O2 Delivery Ventilator Mechanical Ventilator Ventilator Ventilator 02/14/18 02/14/18 02/14/18 02/14/18 13:26 14:00 15:00 15:25 Pulse 100 106 Resp 22 26 B/P (MAP) 124/65 (84) 166/80 (108) Pulse Ox 96 97 94 95 O2 Delivery Ventilator Ventilator Ventilator Ventilator 02/14/18 02/14/18 02/14/18 02/14/18 16:00 16:00 17:00 17:12 Temp 101.3 101.3 Pulse 111 110 Resp 19 20 B/P (MAP) 95/57 (70) 152/68 (96) Pulse Ox 92 94 93 O2 Delivery Ventilator Mechanical Ventilator Ventilator Ventilator 02/14/18 02/14/18 02/14/18 02/14/18 18:00 19:00 19:54 20:00 Pulse 109 97 Resp 18 19 B/P (MAP) 117/60 (79) 132/64 (86) Pulse Ox 95 97 98 O2 Delivery Ventilator Ventilator Ventilator Mechanical Ventilator 02/14/18 02/14/18 02/14/18 02/14/18 20:00 21:00 21:30 22:00 Temp 99.6 99.6 Pulse 101 100 100 88 Resp 23 21 B/P (MAP) 122/64 (83) 107/59 (75) 107/59 121/66 (84) Pulse Ox 98 96 99 O2 Delivery Ventilator Ventilator Ventilator 02/14/18 02/14/18 02/15/18 02/15/18 23:00 23:03 00:00 00:00 Temp 99.6 99.6 Pulse 96 95 Resp 25 28 B/P (MAP) 117/64 (81) 123/60 (81) Pulse Ox 95 98 95 O2 Delivery Ventilator Ventilator Ventilator Mechanical Ventilator 02/15/18 02/15/18 02/15/18 02/15/18 01:00 01:18 02:00 03:00 Pulse 112 112 105 Resp 25 29 32 B/P (MAP) 121/63 (82) 114/65 (81) 102/63 (76) Pulse Ox 94 98 97 97 O2 Delivery Ventilator Ventilator Ventilator Ventilator 02/15/18 02/15/18 02/15/18 02/15/18 03:30 03:47 04:00 05:00 Temp 99.7 99.7 Pulse 108 125 Resp 32 27 B/P (MAP) 107/54 (71) 131/73 (92) Pulse Ox 98 93 93 O2 Delivery Mechanical Ventilator Ventilator Ventilator Ventilator 02/15/18 02/15/18 02/15/18 02/15/18 05:44 06:00 07:05 08:32 Pulse 125 135 Resp 29 B/P (MAP) 117/61 (79) 135/71 Pulse Ox 93 92 96 O2 Delivery Ventilator Ventilator Ventilator 02/15/18 02/15/18 09:34 10:46 Pulse Ox 93 92 O2 Delivery Ventilator Ventilator Intake and Output 02/14/18 02/14/18 02/15/18 15:01 23:01 07:01 Intake Total 310 ml 2366.4 ml 1754 ml Output Total 70 ml 70 ml 950 ml Balance 240 ml 2296.4 ml 804 ml Nutrition Consultation Dietary Evaluation: Recommendations by RD: Increase Calorie Intake Comments: Continue TF per current order: Jevity 1.5@goal rate 45 ml/hr w/150 ml water flushes q4 hrs or flushes per MD Expected Outcomes/Goals: TF for nutrition needs while pt remains intubated - met, goal ongoing Interpretation of weight loss: >10% in 6 months Malnutrition Findings: Body Fat Depletion (Non Severe: Mild Depletion Weight Status: Appropriate KYLE RYAN III DO Feb 15, 2018 10:59
--- NOTE | 2018-02-15 11:14 | PDOC ---
Objective: Objective: D/w RN - reports of "clots" in rectal tube, not noted this morning, transfusion ordered. Vital Signs: Vital Signs Date Time Temp Pulse Resp B/P (MAP) Pulse Ox O2 Delivery O2 Flow Rate FiO2 02/15/18 10:46 92 Ventilator 02/15/18 08:32 135 135/71 02/15/18 06:00 29 02/15/18 04:00 99.7 99.7 Labs: Laboratory Tests Test 02/14/18 12:44 02/15/18 05:40 White Blood Count 10.3 x10^3/uL 13.9 x10^3/uL Red Blood Count 2.48 x10^6/uL 2.57 x10^6/uL Hemoglobin 7.7 g/dL 7.9 g/dL Hematocrit 22.2 % 23.0 % Mean Corpuscular Volume 89 fL 90 fL Mean Corpuscular Hemoglobin 31 pg 31 pg Mean Corpuscular Hemoglobin Concent 35 g/dL 34 g/dL Red Cell Distribution Width 16.8 % 17.2 % Platelet Count 127 x10^3/uL 223 x10^3/uL Neutrophils (%) (Auto) 95 % Lymphocytes (%) (Auto) 3 % Monocytes (%) (Auto) 2 % Eosinophils (%) (Auto) 0 % Basophils (%) (Auto) 0 % Neutrophils # (Auto) 13.2 x10^3uL Lymphocytes # (Auto) 0.4 x10^3/uL Monocytes # (Auto) 0.2 x10^3/uL Eosinophils # (Auto) 0.0 x10^3/uL Basophils # (Auto) 0.0 x10^3/uL Sodium Level 139 mmol/L Potassium Level 4.6 mmol/L Chloride Level 102 mmol/L Carbon Dioxide Level 26 mmol/L Anion Gap 11 Blood Urea Nitrogen 74 mg/dL Creatinine 3.7 mg/dL Estimated GFR (Cockcroft-Gault) 12.3 Glucose Level 149 mg/dL Calcium Level 7.6 mg/dL Magnesium Level 2.7 mg/dL PE: GEN: intubated LUNGS: vent HEART: tachycardic ABD: BS+, soft - rectal tube w/ thin black liquid NEURO/PSYCH: sedated A/P: Resp failure, NSTEMI, ANGELICA Anemia, black stool -- Continue IV PPI, plans for transfusion. CONNOR MCNAIR Feb 15, 2018 11:14
--- NOTE | 2018-02-15 11:43 | PDOC2 ---
PALLIATIVE CARE Palliative Care Note Palliative Care Consult requested by Dr. Barragan to address goals of care. Medical assessment per medical record; 1. Acute hypoxemic respiratory failure secondary to acute diastolic congestive heart failure, non-ST elevation myocardial infarction/SEPSIS 2. Abnormal chest x-ray/CHF PNEUMONIA 3. Acute diastolic congestive heart failure. 4. Chronic obstructive pulmonary disease with mild acute exacerbation. 5. Acute bronchitis/ASPIRATION PNEUMONIA 6. Smoker. 7. Leukocytosis. 8. History of cerebrovascular accident. 9. hypotension 10. NSTEMI PER CARD 11. ACUTE RENAL FAILURE Patient unresponsive on Vent 50%. RR 40's respirations not synchronizing with vent. Versed and Fentanyl gtt. Spoke with daughter Shyla. Patient also has 4 sons who are out of town. Reviewed medical condition with daughter. She was not clear about her mother's medical condition. Discussed Code Status. She does not want to make any decisions without including brother's. Will arrange family meeting as soon as possible . 1340 Updated Shyla. Plan family meeting [id number]. AVERY SANDOVAL Feb 15, 2018 11:43
--- NOTE | 2018-02-15 15:07 | PDOC ---
PROGRESS NOTES Subjective Subjective Patient seen and examined The patient remains on a ventilator. Objective Objective Vital Signs Date Time Temp Pulse Resp B/P (MAP) Pulse Ox O2 Delivery O2 Flow Rate FiO2 02/15/18 13:07 96 Ventilator 02/15/18 12:10 100.7 107 26 147/71 100.7 Intake and Output 02/15/18 07:01 Intake Total 4430.4 ml Output Total 1090 ml Balance 3340.4 ml IV Total 1353.4 ml Tube Feeding 2452 ml Blood Product IV Normal Saline Flush 475 ml Other 150 ml Output Urine Total 240 ml Stool Total 700 ml Gastric Drainage Total 150 ml Physical Exam Abdomen: Normal bowel sounds Heart: Regular rate General: Other (intubated on a ventilator.) Lungs: Other (decreased breath sounds) Assessment Assessment Problems Medical Problems: (1) CHF (congestive heart failure) Status: Acute (2) Elevated troponin Status: Acute (3) Heart failure Status: Acute (4) Respiratory failure Status: Acute (5) Shortness of breath Status: Acute 1. Acute hypoxic respiratory failure: The patient remains intubated. Continue present treatments. Goals of care to be discussed with the patient's family. 2. Acute diastolic heart failure: multifactorial. Continue present treatment. 3. Severe multi-region peripheral vascular disease as above. We'll continue on present treatments at this time. 4. NSTEMI: Peaked trop at 44. EF at 50% with possible mild hypokinesis in the distal septal wall. Continuing medical treatment at this time. 5. PAFIB; mainly SR, but having short bursts of AFIB with RVR overnight. Uremia likely contributing factors. 6. History of CVA. 7. ANGELICA; renal function mildly improved creatinine. nephrology following 8. Metabolic encephalopathy 9. Accelerated HTN; labile Comment Review of Relevant I have reviewed the following items pat (where applicable) has been applied. Labs Laboratory Tests Test 02/13/18 19:10 02/14/18 05:00 02/14/18 12:44 02/15/18 05:40 Urine Collection Type Unknown Urine Color Yellow Urine Clarity Cloudy Urine pH 5.5 Urine Specific [place] 1.015 Urine Protein 100 mg/dL (NEG-TRACE) Urine Glucose (UA) Negative mg/dL (NEG) Urine Ketones (Stick) Negative mg/dL (NEG) Urine Blood Small (NEG) Urine Nitrite Negative (NEG) Urine Bilirubin Negative (NEG) Urine Urobilinogen Dipstick 0.2 mg/dL (0.2 mg/dL) Urine Leukocyte Esterase Negative (NEG) Urine RBC Occ /HPF (0-2) Urine WBC Occ /HPF (0-4) Urine Squamous Epithelial Cells Few /LPF Urine Amorphous Sediment Present /HPF Urine Bacteria 0 /HPF (0-FEW) Urine Granular Casts Few /HPF Urine Mucus Mod /LPF White Blood Count 8.5 x10^3/uL (4.0-11.0) 10.3 x10^3/uL (4.0-11.0) 13.9 x10^3/uL (4.0-11.0) Red Blood Count 2.66 x10^6/uL (3.50-5.40) 2.48 x10^6/uL (3.50-5.40) 2.57 x10^6/uL (3.50-5.40) Hemoglobin 8.2 g/dL (12.0-15.5) 7.7 g/dL (12.0-15.5) 7.9 g/dL (12.0-15.5) Hematocrit 23.9 % (36.0-47.0) 22.2 % (36.0-47.0) 23.0 % (36.0-47.0) Mean Corpuscular Volume 90 fL (79-100) 89 fL (79-100) 90 fL (79-100) Mean Corpuscular Hemoglobin 31 pg (25-35) 31 pg (25-35) 31 pg (25-35) Mean Corpuscular Hemoglobin Concent 34 g/dL (31-37) 35 g/dL (31-37) 34 g/dL (31-37) Red Cell Distribution Width 16.7 % (11.5-14.5) 16.8 % (11.5-14.5) 17.2 % (11.5-14.5) Platelet Count 137 x10^3/uL (140-400) 127 x10^3/uL (140-400) 223 x10^3/uL (140-400) Neutrophils (%) (Auto) 90 % (31-73) 95 % (31-73) Lymphocytes (%) (Auto) 7 % (24-48) 3 % (24-48) Monocytes (%) (Auto) 3 % (0-9) 2 % (0-9) Eosinophils (%) (Auto) 0 % (0-3) 0 % (0-3) Basophils (%) (Auto) 0 % (0-3) 0 % (0-3) Neutrophils # (Auto) 7.6 x10^3uL (1.8-7.7) 13.2 x10^3uL (1.8-7.7) Lymphocytes # (Auto) 0.6 x10^3/uL (1.0-4.8) 0.4 x10^3/uL (1.0-4.8) Monocytes # (Auto) 0.3 x10^3/uL (0.0-1.1) 0.2 x10^3/uL (0.0-1.1) Eosinophils # (Auto) 0.0 x10^3/uL (0.0-0.7) 0.0 x10^3/uL (0.0-0.7) Basophils # (Auto) 0.0 x10^3/uL (0.0-0.2) 0.0 x10^3/uL (0.0-0.2) Sodium Level 143 mmol/L (136-145) 139 mmol/L (136-145) Potassium Level 4.2 mmol/L (3.5-5.1) 4.6 mmol/L (3.5-5.1) Chloride Level 107 mmol/L (98-107) 102 mmol/L (98-107) Carbon Dioxide Level 23 mmol/L (21-32) 26 mmol/L (21-32) Anion Gap 13 (6-14) 11 (6-14) Blood Urea Nitrogen 100 mg/dL (7-20) 74 mg/dL (7-20) Creatinine 4.2 mg/dL (0.6-1.0) 3.7 mg/dL (0.6-1.0) Estimated GFR (Cockcroft-Gault) 10.6 12.3 Glucose Level 180 mg/dL (70-99) 149 mg/dL (70-99) Calcium Level 7.3 mg/dL (8.5-10.1) 7.6 mg/dL (8.5-10.1) Magnesium Level 2.6 mg/dL (1.8-2.4) 2.7 mg/dL (1.8-2.4) Laboratory Tests Test 02/15/18 05:40 White Blood Count 13.9 x10^3/uL (4.0-11.0) Red Blood Count 2.57 x10^6/uL (3.50-5.40) Hemoglobin 7.9 g/dL (12.0-15.5) Hematocrit 23.0 % (36.0-47.0) Mean Corpuscular Volume 90 fL (79-100) Mean Corpuscular Hemoglobin 31 pg (25-35) Mean Corpuscular Hemoglobin Concent 34 g/dL (31-37) Red Cell Distribution Width 17.2 % (11.5-14.5) Platelet Count 223 x10^3/uL (140-400) Neutrophils (%) (Auto) 95 % (31-73) Lymphocytes (%) (Auto) 3 % (24-48) Monocytes (%) (Auto) 2 % (0-9) Eosinophils (%) (Auto) 0 % (0-3) Basophils (%) (Auto) 0 % (0-3) Neutrophils # (Auto) 13.2 x10^3uL (1.8-7.7) Lymphocytes # (Auto) 0.4 x10^3/uL (1.0-4.8) Monocytes # (Auto) 0.2 x10^3/uL (0.0-1.1) Eosinophils # (Auto) 0.0 x10^3/uL (0.0-0.7) Basophils # (Auto) 0.0 x10^3/uL (0.0-0.2) Sodium Level 139 mmol/L (136-145) Potassium Level 4.6 mmol/L (3.5-5.1) Chloride Level 102 mmol/L (98-107) Carbon Dioxide Level 26 mmol/L (21-32) Anion Gap 11 (6-14) Blood Urea Nitrogen 74 mg/dL (7-20) Creatinine 3.7 mg/dL (0.6-1.0) Estimated GFR (Cockcroft-Gault) 12.3 Glucose Level 149 mg/dL (70-99) Calcium Level 7.6 mg/dL (8.5-10.1) Magnesium Level 2.7 mg/dL (1.8-2.4) Microbiology 02/12/18 Blood Culture - Preliminary, Resulted NO GROWTH AFTER 3 DAYS 02/10/18 - Final, Complete 02/10/18 - Final, Complete 02/10/18 - Final, Complete 02/10/18 Gram Stain Evaluation - Final, Complete 02/10/18 Sputum Culture - Final, Complete 02/10/18 Sputum Result 1 - Final, Complete Medications Current Medications Albuterol/ Ipratropium (Duoneb) 3 ml 1X ONCE NEB Last administered on at 17:14; Start 02/08/18 at 16:00; Stop 02/08/18 at 16:01; Status DC Vancomycin HCl (Vanco Per Pharmacy) 1 each PRN DAILY PRN MC SEE COMMENTS Last administered on 02/09/18at 08:59; Start 02/08/18 at 16:15; Stop 02/10/18 at 09 :07; Status DC Piperacillin Sod/ Tazobactam Sod (Zosyn Per Pharmacy) 1 each PRN DAILY PRN MC SEE COMMENTS; Start 02/08/18 at 16:15; Stop 02/12/18 at 07:24; Status DC Vancomycin HCl 1.75 gm/Sodium Chloride 500 ml @ 250 mls/hr 1X ONCE IV Last administered on 02/08/18at 16:36; Start 02/08/18 at 17:00; Stop 02/08/18 at 18 :59; Status DC Piperacillin Sod/ Tazobactam Sod 3.375 gm/Sodium Chloride 50 ml @ 100 mls/hr 1X ONCE IV Last administered on 02/08/18at 16:36; Start 02/08/18 at 16:30; Stop 02/08/18 at 16:59; Status DC Furosemide (Lasix) 20 mg 1X ONCE IVP Last administered on 02/08/18at 16:36; Start 02/08/18 at 16:30; Stop 02/08/18 at 16:31; Status DC Aspirin (Children'S Aspirin) 324 mg 1X ONCE PO Last administered on at 16:36; Start 02/08/18 at 16:30; Stop 02/08/18 at 16:31; Status DC Furosemide (Lasix) 20 mg 1X ONCE IVP Last administered on 02/08/18at 18:07; Start 02/08/18 at 17:00; Stop 02/08/18 at 17:01; Status DC Ondansetron HCl (Zofran) 4 mg 1X ONCE IV Last administered on 02/08/18at 17:00 ; Start 02/08/18 at 17:00; Stop 02/08/18 at 17:01; Status DC Ondansetron HCl (Zofran) 4 mg STK-MED ONCE .ROUTE ; Start 02/08/18 at 16:51; Stop 02/08/18 at 16:52; Status DC Heparin Sodium/ Dextrose 500 ml @ 0 mls/hr CONT PRN IV SEE I/O RECORD; Start 02/08/18 at 17:30; Status UNV Info (Anti-Coagulation Monitoring By Pharmacy) 1 each PRN DAILY PRN MC SEE COMMENTS Last administered on 02/11/18at 12:25; Start 02/08/18 at 17:30; Stop 02/13/18 at 09:17; Status DC Heparin Sodium/ Dextrose 500 ml @ 0 mls/hr CONT PRN IV SEE I/O RECORD Last administered on 02/12/18at 19:46; Start 02/08/18 at 17:30; Stop 02/13/18 at 08 :22; Status DC Heparin Sodium (Porcine) (Heparin Sodium) 1,800 unit PRN Q6HRS PRN IV FOR UFH LEVEL LESS THAN 0.2 Last administered on 02/08/18at 20:10; Start 02/08/18 at 17 :30; Stop 02/13/18 at 08:22; Status DC Ondansetron HCl (Zofran) 4 mg 1X PRN PRN IV NAUSEA/VOMITING; Start 02/08/18 at 18:00; Stop 02/09/18 at 09:06; Status DC Piperacillin Sod/ Tazobactam Sod 3.375 gm/Sodium Chloride 50 ml @ 100 mls/hr Q6HRS IV Last administered on 02/11/18at 05:37; Start 02/09/18 at 00:00; Stop 02/11/18 at 07:14; Status DC Vancomycin HCl 1 gm/Sodium Chloride 250 ml @ 250 mls/hr Q24H IV Last administered on 02/09/18at 16:30; Start 02/09/18 at 16:30; Stop 12/16/18 at 09 :07; Status DC Vancomycin HCl (Vancomycin Trough Level) 1 each 1X ONCE MC ; Start 02/10/18 at 16:00; Stop 02/10/18 at 16:00; Status DC Magnesium Sulfate/ Dextrose 100 ml @ 25 mls/hr 1X ONCE IV Last administered on 02/08/18at 22:03; Start 02/08/18 at 22:00; Stop 02/09/18 at 01:59; Status DC Aspirin (Radha Aspirin) 325 mg DAILY PO ; Start 02/09/18 at 09:00; Stop at 10:16; Status DC Atorvastatin Calcium (Lipitor) 10 mg HS PO ; Start 02/09/18 at 21:00; Stop at 21:00; Status DC Clonidine HCl (Catapres) 0.1 mg QHS PO Last administered on 02/08/18at 22:05; Start 02/08/18 at 22:00; Stop 02/09/18 at 10:16; Status DC Docusate Sodium (Colace) 100 mg BID PO ; Start 02/09/18 at 09:00; Stop at 10:16; Status DC Gabapentin (Neurontin) 300 mg TID PO Last administered on 02/08/18at 22:08; Start 02/08/18 at 22:20; Stop 02/09/18 at 10:16; Status DC Labetalol HCl (Normodyne Iv Push) 10 mg PRN Q2HR PRN IVP HYPERTENSION, SEE COMMENTS Last administered on 02/12/18at 15:12; Start 02/08/18 at 21:30; Stop 02/12/18 at 16:22; Status DC Lorazepam (Ativan) 1 mg PRN Q4HRS PRN IV ANXIETY / AGITATION Last administered on 02/15/18at 04:02; Start 02/08/18 at 21:30 Morphine Sulfate (Morphine Sulfate) 4 mg PRN Q4HRS PRN IV PAIN Last administered on 02/09/18at 19:45; Start 02/08/18 at 21:30 Acetaminophen (Tylenol Supp) 325 mg PRN Q6HRS PRN ND MILD PAIN / TEMP Last administered on 02/09/18at 09:30; Start 02/09/18 at 06:45 Ipratropium [place] (Atrovent) 0.5 mg RTQID NEB Last administered on at 19:59; Start 02/09/18 at 08:00 Budesonide (Pulmicort) 0.5 mg RTBID NEB Last administered on 02/15/18at 07:07; Start 02/09/18 at 08:00 Famotidine (Pepcid Vial) 20 mg QHS IVP Last administered on 02/12/18at 21:56; Start 02/09/18 at 21:00; Stop 02/13/18 at 14:47; Status DC Acetaminophen (Tylenol) 500 mg PRN Q6HRS PRN PO FEVER/KUO Last administered on 02/14/18at 17:23; Start 02/09/18 at 09:00 Ondansetron HCl (Zofran) 4 mg PRN Q6HRS PRN IV NAUSEA/VOMITING; Start at 09:00 Ondansetron HCl (Zofran Odt) 4 mg PRN Q6HRS PRN PO NAUSEA/VOMITING; Start at 09:00 Acetaminophen/ Hydrocodone Bitart (Lortab 10/325) 1 tab PRN Q4HRS PRN PO MODERATE PAIN; Start 02/09/18 at 09:00 Magnesium Hydroxide (Milk Of Magnesia) 400 mg DAILY PO Last administered on at 08:31; Start 02/09/18 at 09:00 Oxycodone HCl (OxyCONTIN) 10 mg BID PO ; Start 02/09/18 at 09:00; Stop at 10:16; Status DC Oxycodone/ Acetaminophen (Percocet 5/325) 1 tab BID PO ; Start 02/09/18 at 09: 00; Stop 02/09/18 at 10:16; Status DC Tramadol HCl (Ultram) 50 mg PRN DAILY PRN PO MILD PAIN; Start 02/09/18 at 09: 00 Non-Formulary Medication (Acetaminophen ) 1 tab BID PO ; Start 02/09/18 at 09: 00; Stop 02/09/18 at 09:12; Status DC Non-Formulary Medication (Albuterol Sulfate (Albuterol Sulfate Neb Soln)) 1 vial QID NEB ; Start 02/09/18 at 09:00; Stop 02/09/18 at 09:22; Status DC Citalopram Hydrobromide (CeleXA) 40 mg QHS PO ; Start 02/09/18 at 21:00; Stop 02/09/18 at 21:00; Status DC Hydrochlorothiazide (Microzide) 12.5 mg QHS PO ; Start 02/09/18 at 21:00; Stop 02/09/18 at 21:00; Status DC Non-Formulary Medication (Magnesium Oxide ) 1 tab DAILY PO ; Start 02/09/18 at 09:00; Stop 02/09/18 at 09:14; Status DC Non-Formulary Medication (Multivitamin (Multivitamins)) 1 tab DAILY PO ; Start 02/09/18 at 09:00; Stop 02/09/18 at 09:14; Status DC Nicotine (Nicoderm Cq 14mg) 1 patch DAILY TD Last administered on 02/14/18at 08 :08; Start 02/09/18 at 10:00 Ondansetron HCl (Zofran Odt) 4 mg Q6HRS PO Last administered on 02/14/18at 05: 52; Start 02/09/18 at 12:00; Stop 02/14/18 at 15:05; Status DC Non-Formulary Medication (Polyethylene Glycol 3350 (Miralax)) 1 packet DAILY PO ; Start 02/09/18 at 09:00; Stop 02/09/18 at 09:17; Status DC Quetiapine Fumarate (SEROquel) 25 mg QHS PO ; Start 02/09/18 at 21:00; Stop at 21:00; Status DC Labetalol HCl (Normodyne Iv Push) 10 mg PRN Q2HR PRN IVP HYPERTENSION, SEE COMMENTS; Start 02/09/18 at 09:00; Stop 02/09/18 at 09:06; Status DC Acetaminophen (Tylenol) 500 mg BID PO ; Start 02/09/18 at 10:00; Stop at 10:16; Status DC Magnesium Oxide (Magnesium Oxide) 400 mg DAILY PO Last administered on at 08:31; Start 02/09/18 at 10:00 Multivitamins (Thera M Plus) 1 tab DAILY PO ; Start 02/09/18 at 10:00; Stop at 10:16; Status DC Polyethylene Glycol (miraLAX PACKET) 17 gm DAILY PO ; Start 02/09/18 at 10:00; Stop 02/09/18 at 10:16; Status DC Albuterol Sulfate (Ventolin Neb Soln) 2.5 mg RTQID NEB Last administered on at 10:45; Start 02/09/18 at 12:00 Furosemide (Lasix) 60 mg 1X ONCE IVP Last administered on 02/09/18at 20:16; Start 02/09/18 at 20:00; Stop 02/09/18 at 20:01; Status DC Rocuronium [place] (Zemuron) 50 mg STK-MED ONCE .ROUTE ; Start 02/09/18 at 20: 23; Stop 02/09/18 at 20:24; Status DC Fentanyl Citrate 30 ml @ 0 mls/hr CONT PRN IV SEE PROTOCOL Last administered on 02/14/18at 19:48; Start 02/09/18 at 20:30 Propofol 100 ml @ 0 mls/hr CONT PRN IV SEE PROTOCOL Last administered on at 14:09; Start 02/09/18 at 20:30 Midazolam HCl 100 ml @ 5 mls/hr CONT PRN IV SEE I/O RECORD Last administered on 02/12/18at 03:38; Start 02/09/18 at 22:00; Stop 02/13/18 at 17:22; Status DC Norepinephrine Bitartrate 250 ml @ As Directed STK-MED ONCE IV ; Start at 02:33; Stop 02/10/18 at 02:35; Status DC Norepinephrine Bitartrate 250 ml @ 1.875 mls/ hr CONT PRN IV SEE I/O RECORD Last administered on 02/14/18at 15:02; Start 02/10/18 at 02:45 Methylprednisolone Sodium Succinate (SOLU-Medrol 40MG VIAL) 40 mg Q12HR IV Last administered on 02/15/18at 08:30; Start 02/10/18 at 09:00 Piperacillin Sod/ Tazobactam Sod 2.25 gm/Sodium Chloride 50 ml @ 100 mls/hr Q6HRS IV Last administered on 02/12/18at 05:47; Start 02/11/18 at 12:00; Stop 02/12/18 at 07:24; Status DC Propofol (Diprivan) 200 mg STK-MED ONCE IV ; Start 02/09/18 at 07:00; Stop at 07:43; Status DC Succinylcholine Chloride (Anectine) 200 mg STK-MED ONCE .ROUTE ; Start at 07:00; Stop 02/11/18 at 07:43; Status DC Phenylephrine HCl (PHENYLEPHRINE in 0.9% NACL PF) 1 mg STK-MED ONCE IV ; Start 02/09/18 at 07:00; Stop 02/11/18 at 07:43; Status DC Ephedrine Sulfate (ePHEDrine PF IN SALINE SYRINGE) 50 mg STK-MED ONCE IV ; Start 02/09/18 at 07:00; Stop 02/11/18 at 07:43; Status DC Rocuronium [place] (Zemuron) 50 mg STK-MED ONCE .ROUTE ; Start 02/09/18 at 21: 00; Stop 02/11/18 at 08:22; Status DC Linezolid/Dextrose 300 ml @ 300 mls/hr Q12HR IV Last administered on at 08:32; Start 02/12/18 at 09:00; Stop 02/15/18 at 10:31; Status DC Micafungin Sodium 100 mg/Dextrose 100 ml @ 100 mls/hr Q24H IV Last administered on 02/15/18at 08:34; Start 02/12/18 at 10:00; Stop 02/15/18 at 10 :31; Status DC Cefepime HCl (Maxipime) 1 gm Q12HR IVP Last administered on 02/13/18at 08:19; Start 02/12/18 at 09:00; Stop 02/13/18 at 10:56; Status DC Atorvastatin Calcium (Lipitor) 10 mg QHS PO Last administered on 02/14/18at 21: 29; Start 02/12/18 at 21:00 Labetalol HCl (Normodyne Iv Push) 20 mg PRN Q2HR PRN IVP HYPERTENSION, SEE COMMENTS Last administered on 02/13/18at 05:34; Start 02/12/18 at 16:15 Aspirin (Children'S Aspirin) 81 mg DAILYWBKFT PO Last administered on at 08:31; Start 02/12/18 at 16:15 Metoprolol Tartrate (Lopressor) 25 mg BID PO Last administered on 02/15/18at 08 :32; Start 02/13/18 at 11:00 Cefepime HCl (Maxipime) 1 gm QHS IVP ; Start 02/13/18 at 21:00; Stop 02/13/18 at 21:00; Status DC Lidocaine/Sodium Bicarbonate (Buffered Lidocaine 1%) 3 ml STK-MED ONCE .ROUTE ; Start 02/13/18 at 13:32; Stop 02/13/18 at 13:33; Status DC Heparin Sodium (Porcine) (Heparin Sodium) 10,000 unit STK-MED ONCE .ROUTE ; Start 02/13/18 at 13:32; Stop 02/13/18 at 13:33; Status DC Midazolam HCl (Versed) 5 mg STK-MED ONCE .ROUTE ; Start 02/13/18 at 14:04; Stop 02/13/18 at 14:05; Status DC Midazolam HCl (Versed) 5 mg 1X ONCE IV Last administered on 02/13/18at 14:10; Start 02/13/18 at 14:15; Stop 02/13/18 at 14:16; Status DC Lidocaine/Sodium Bicarbonate (Buffered Lidocaine 1%) 4 ml 1X ONCE INJ Last administered on 02/13/18at 14:57; Start 02/13/18 at 14:45; Stop 02/13/18 at 14 :52; Status DC Heparin Sodium (Porcine) (Heparin Sodium) 2,200 unit 1X ONCE INT CAT Last administered on 02/13/18at 15:02; Start 02/13/18 at 14:45; Stop 02/13/18 at 14 :52; Status DC Pantoprazole Sodium (PROTONIX VIAL for IV PUSH) 40 mg BIDAC IVP Last administered on 02/15/18at 08:31; Start 02/13/18 at 16:30 Heparin Sodium (Porcine) (Heparin Sodium) 2,500 unit 1X ONCE INT CAT ; Start 02/13/18 at 15:00; Stop 02/13/18 at 15:03; Status DC Meropenem 500 mg/ Sodium Chloride 50 ml @ 100 mls/hr Q24H IV Last administered on 02/14/18at 08:07; Start 02/13/18 at 16:00 Midazolam HCl 100 ml @ 5 mls/hr CONT PRN IV SEE I/O RECORD Last administered on 02/15/18at 05:58; Start 02/13/18 at 15:15 Midazolam HCl (Versed) 5 mg STK-MED ONCE .ROUTE ; Start 02/13/18 at 15:15; Stop 02/13/18 at 15:16; Status DC Clopidogrel Bisulfate (Plavix) 75 mg DAILYWBKFT PO Last administered on at 08:31; Start 02/13/18 at 16:00 Sodium Chloride 1,000 ml @ 1,000 mls/hr Q1H PRN IV hypotension; Start at 19:27; Stop 02/14/18 at 01:26; Status DC Albumin Human 200 ml @ 200 mls/hr 1X PRN PRN IV Hypotension; Start 02/13/18 at 19:30; Stop 02/14/18 at 01:29; Status DC Sodium Chloride 1,000 ml @ 400 mls/hr Q2H30M PRN IV PATENCY; Start 02/13/18 at 19:27; Stop 02/14/18 at 07:26; Status DC Info (PHARMACY MONITORING -- do not chart) 1 each PRN DAILY PRN MC SEE COMMENTS ; Start 02/13/18 at 19:30 Info (PHARMACY MONITORING -- do not chart) 1 each PRN DAILY PRN MC SEE COMMENTS ; Start 02/13/18 at 19:30; Status UNV Sodium Chloride 1,000 ml @ 1,000 mls/hr Q1H PRN IV hypotension; Start at 08:16; Stop 02/14/18 at 14:15; Status DC Sodium Chloride 1,000 ml @ 400 mls/hr Q2H30M PRN IV PATENCY; Start 02/14/18 at 08:16; Stop 02/14/18 at 20:15; Status DC Info (PHARMACY MONITORING -- do not chart) 1 each PRN DAILY PRN MC SEE COMMENTS ; Start 02/14/18 at 08:30; Status UNV Midazolam HCl (Versed) 5 mg STK-MED ONCE .ROUTE ; Start 02/13/18 at 15:30; Stop 02/14/18 at 09:00; Status DC Active Scripts Active Percocet 5-325 Mg Tablet (Oxycodone/Acetaminophen) 1 Each Tablet 1 Tab PO BID 3 Days Reported Zofran (Ondansetron Hcl) 4 Mg Tablet 1 Tab PO Q6HRS Milk Of Magnesia (Magnesium Hydroxide) 400 Mg/5 Ml Oral.susp 400 Mg PO Acetaminophen 500 Mg Tablet 1 Tab PO BID Clonidine Hcl 0.1 Mg Tablet 1 Tab PO QHS Tramadol Hcl 50 Mg Tablet 50 Mg PO DAILY PRN Hydralazine Hcl 20 Mg/1 Ml Vial 20 Mg IJ Gabapentin (Gabapentin) 300 Mg Capsule 300 Mg PO TID Acidophilus (Lactobacillus Acidophilus) 1 Each Capsule 1 Each PO Atorvastatin Calcium 10 Mg Tablet 1 Tab PO DAILY Vitamin C (Ascorbic Acid) 500 Mg Tablet.er 500 Mg PO Aspirin 325 Mg Tablet 1 Tab PO DAILY Colace (Docusate Sodium) 100 Mg Capsule 1 Cap PO BID Magnesium Oxide 400 Mg Tablet 1 Tab PO DAILY Multivitamins (Multivitamin) 1 Each Tablet 1 Tab PO DAILY NICODERM CQ 14mg (Nicotine) 1 Each Patch.td24 1 Patch TP DAILY Miralax (Polyethylene Glycol 3350) 17 Gm Powd.pack 1 Packet PO DAILY Albuterol Sulfate Neb Soln (Albuterol Sulfate) 0.63 Mg/3 Ml Vial.neb 1 Vial NEB QID Prednisone 20 Mg Tablet 1 Tab PO DAILY Seroquel (Quetiapine Fumarate) 25 Mg Tablet 1 Tab PO QHS Hydrochlorothiazide Tablet (Hydrochlorothiazide) 12.5 Mg Tablet 1 Tab PO QHS Lexapro (Escitalopram Oxalate) 20 Mg Tablet 1 Tab PO QHS Hydrocodone-Apap 10-325 (Hydrocodone Bit/Acetaminophen) 1 Each Tablet 1 Tab PO PRN Q4HRS Oxycontin (Oxycodone HCl) 10 Mg Tab.er.12h 10 Mg PO BID Vitals/I & O Vital Sign - Last 24 Hours 02/14/18 02/14/18 02/14/18 02/14/18 15:25 16:00 16:00 17:00 Temp 101.3 101.3 Pulse 111 110 Resp 19 20 B/P (MAP) 95/57 (70) 152/68 (96) Pulse Ox 95 92 94 O2 Delivery Ventilator Ventilator Mechanical Ventilator Ventilator 02/14/18 02/14/18 02/14/18 02/14/18 17:12 18:00 19:00 19:54 Pulse 109 97 Resp 18 19 B/P (MAP) 117/60 (79) 132/64 (86) Pulse Ox 93 95 97 98 O2 Delivery Ventilator Ventilator Ventilator Ventilator 02/14/18 02/14/18 02/14/18 02/14/18 20:00 20:00 21:00 21:30 Temp 99.6 99.6 Pulse 101 100 100 Resp 21 23 B/P (MAP) 122/64 (83) 107/59 (75) 107/59 Pulse Ox 98 96 O2 Delivery Mechanical Ventilator Ventilator Ventilator 02/14/18 02/14/18 02/14/18 02/15/18 22:00 23:00 23:03 00:00 Temp 99.6 99.6 Pulse 88 96 95 Resp 21 25 28 B/P (MAP) 121/66 (84) 117/64 (81) 123/60 (81) Pulse Ox 99 95 98 95 O2 Delivery Ventilator Ventilator Ventilator Ventilator 02/15/18 02/15/18 02/15/18 02/15/18 00:00 01:00 01:18 02:00 Pulse 112 112 Resp 25 29 B/P (MAP) 121/63 (82) 114/65 (81) Pulse Ox 94 98 97 O2 Delivery Mechanical Ventilator Ventilator Ventilator Ventilator 02/15/18 02/15/18 02/15/18 02/15/18 03:00 03:30 03:47 04:00 Temp 99.7 99.7 Pulse 105 108 Resp 32 32 B/P (MAP) 102/63 (76) 107/54 (71) Pulse Ox 97 98 93 O2 Delivery Ventilator Mechanical Ventilator Ventilator Ventilator 02/15/18 02/15/18 02/15/18 02/15/18 05:00 05:44 06:00 07:05 Pulse 125 125 Resp 27 29 B/P (MAP) 131/73 (92) 117/61 (79) Pulse Ox 93 93 92 96 O2 Delivery Ventilator Ventilator Ventilator Ventilator 02/15/18 02/15/18 02/15/18 02/15/18 08:32 09:34 10:46 12:10 Temp 100.7 100.7 Pulse 135 107 Resp 26 B/P (MAP) 135/71 147/71 Pulse Ox 93 92 O2 Delivery Ventilator Ventilator 02/15/18 13:07 Pulse Ox 96 O2 Delivery Ventilator Intake and Output 02/14/18 02/14/18 02/15/18 15:01 23:01 07:01 Intake Total 310 ml 2366.4 ml 1754 ml Output Total 70 ml 70 ml 950 ml Balance 240 ml 2296.4 ml 804 ml Nutrition Consultation Dietary Evaluation: Recommendations by RD: Increase Calorie Intake Comments: Continue TF per current order: Jevity 1.5@goal rate 45 ml/hr w/150 ml water flushes q4 hrs or flushes per MD Expected Outcomes/Goals: TF for nutrition needs while pt remains intubated - met, goal ongoing Interpretation of weight loss: >10% in 6 months Malnutrition Findings: Body Fat Depletion (Non Severe: Mild Depletion Weight Status: Appropriate ALEX RUDOLPH MD Feb 15, 2018 15:07
[2018-02-15] MEDS: IPRATROPIUM BROMIDE 0.5 MG/2.5 ML NEBU. NEB SCH ×2 (16:00→19:50)
[2018-02-15] MEDS: MEROPENEM 500 MG in IV NORMAL SALINE 50ML 50 ML IV SCH (16:50)
--- NOTE | 2018-02-15 17:04 | RAD ---
EXAM: AP View of the chest DATE: 02/15/2018 9:00 AM INDICATION: RESPIRATORY FAILURE COMPARISON: 02/14/2018 02/13/2018 FINDINGS/ IMPRESSION: 1. There are 2 right IJ vascular catheters, the tips projects over the distal SVC. Enteric tube extends beyond the diaphragm. ET tube tip terminates approximately 5 cm above the sohan. 2. Cardiomediastinal silhouette is stable. 3. Accounting for changes in technique/position, bilateral parenchymal opacities are grossly stable including the interstitial prominence bilaterally. 4. Trace left pleural effusion. No pneumothorax. Electronically signed by: Onur Valencia MD (02/15/2018 5:00 PM) [facility]
[2018-02-15] MEDS ORDERED: ALBUTEROL SULFATE 2.5 MG/3 ML NEBU. NEB PRN (19:00)
[2018-02-15] MEDS: ATORVASTATIN CALCIUM 10 MG TABLET. PO SCH (20:59)
[2018-02-16] VITALS (24 sets, daily range): BP systolic 83–197; BP diastolic 54–101
[2018-02-16 07:54] LABS: BASO % 0 % (0-3); EOS % 0 % (0-3); HEMATOCRIT 24.5 % (36.0-47.0); HEMOGLOBIN 8.3 g/dL (12.0-15.5); LYMPH # 0.4 x10^3/uL (1.0-4.8); LYMPH % 3 % (24-48); MEAN CORPUSCULAR HEMOGLOBIN 30 pg (25-35); MEAN CORPUSCULAR HGB CONC 34 g/dL (31-37); MEAN CORPUSCULAR VOLUME 90 fL (79-100); MONO # 0.3 x10^3/uL (0.0-1.1); MONO % 2 % (0-9); NEUT # 12.6 x10^3uL (1.8-7.7); NEUT % 95 % (31-73); PLATELET COUNT 336 x10^3/uL (140-400); RED BLOOD COUNT 2.74 x10^6/uL (3.50-5.40); RED CELL DISTRIBUTION WIDTH 16.2 % (11.5-14.5); WHITE BLOOD COUNT 13.3 x10^3/uL (4.0-11.0)
[2018-02-16 08:02] LABS: ALBUMIN 1.4 g/dL (3.4-5.0); ALBUMIN/GLOBULIN RATIO 0.4 (1.0-1.7); CALCIUM 7.3 mg/dL (8.5-10.1); GFR 8.7; POTASSIUM 4.8 mmol/L (3.5-5.1); TOTAL BILIRUBIN 0.2 mg/dL (0.2-1.0); TOTAL PROTEIN 4.6 g/dL (6.4-8.2)
--- NOTE | 2018-02-16 08:28 | RAD ---
Indication:RESPIRATORY FAILURE. TECHNIQUE:Portable AP chest X-ray COMPARISON:02/15/2018 FINDINGS: Stable position of ET tube, NG tube and left IJ catheter. Heart is normal in size. Diffuse bilateral coarse interstitial opacities are seen without focal consolidation. No pneumothorax or pleural effusion. Visualized bony thorax is within normal limits. IMPRESSION: 1. Stable position of lines and tubes. 2. Bilateral interstitial opacities may be secondary to chronic interstitial fibrosis, atypical/viral infection or interstitial pulmonary edema. Findings are stable from previous exam. Electronically signed by: German Mayer DO (02/16/2018 8:24 AM) [facility]
[2018-02-16] MEDS: MAGNESIUM HYDROXIDE 2,400 MG/30 ML ORAL.SUSP. PO SCH (09:00)
[2018-02-16] MEDS: NICOTINE 14MG PATCH. TD SCH (09:00)
[2018-02-16] MEDS: METOPROLOL TART IMMED RELEASE 25 MG TABLET. PO SCH ×2 (09:24→20:36)
[2018-02-16] MEDS: ASPIRIN CHEWABLE 81 MG TABLET. PO SCH (09:25)
[2018-02-16] MEDS: MAGNESIUM OXIDE 400 MG TABLET PO SCH (09:25)
[2018-02-16] MEDS: CLOPIDOGREL BISULFATE 75 MG TABLET PO SCH (09:25)
[2018-02-16] MEDS: methylPREDNISolone SOD SUCC PF 40 MG/ML VIAL. IV SCH ×2 (09:26→20:36)
[2018-02-16] MEDS: PANTOPRAZOLE IV PUSH 40 MG VIAL. IVP SCH ×2 (09:26→16:28)
[2018-02-16] MEDS: BUDESONIDE 0.5 MG/2 ML NEBU. NEB SCH ×2 (09:40→19:21)
[2018-02-16] MEDS: IPRATROPIUM BROMIDE 0.5 MG/2.5 ML NEBU. NEB SCH ×4 (09:40→19:21)
[2018-02-16 09:57] LABS: BASE EXCESS ABG -1 mmol/L (-3-3); HCO3 ABG 22 mmol/L (21-28); PCO2 ABG 32 mmHg (35-46); PO2 ABG 71 mmHg (65-108); SAT O2 ABG 93 % (92-99)
[2018-02-16] MEDS ORDERED: 0.9 % SODIUM CHLORIDE 10 ML DISP.SYRIN. IV PRN ×2 (10:00)
[2018-02-16] MEDS ORDERED: ALBUMIN HUMAN 25% 200 ML IV PRN (10:00)
[2018-02-16 10:14] LABS: FIO2 ABG 50
--- NOTE | 2018-02-16 10:20 | PDOC ---
Renal-Progress Notes Subjective Notes Notes NONE History of Present Illness Hx of present illness INTUBATED Vitals Vitals Vital Signs Date Time Temp Pulse Resp B/P (MAP) Pulse Ox O2 Delivery O2 Flow Rate FiO2 02/16/18 09:40 97 Ventilator 02/16/18 09:24 113 178/89 02/16/18 06:00 20 02/16/18 04:00 98.0 98.0 Weight Weight [ ] I.O. Intake and Output Intake and Output 02/16/18 07:01 Intake Total 2472 ml Output Total 190 ml Balance 2282 ml Tube Feeding 2122 ml Blood Product IV Normal Saline Flush 350 ml Output Urine Total 190 ml Labs Labs Laboratory Tests Test 02/16/18 05:30 02/16/18 09:40 White Blood Count 13.3 x10^3/uL (4.0-11.0) Red Blood Count 2.74 x10^6/uL (3.50-5.40) Hemoglobin 8.3 g/dL (12.0-15.5) Hematocrit 24.5 % (36.0-47.0) Mean Corpuscular Volume 90 fL (79-100) Mean Corpuscular Hemoglobin 30 pg (25-35) Mean Corpuscular Hemoglobin Concent 34 g/dL (31-37) Red Cell Distribution Width 16.2 % (11.5-14.5) Platelet Count 336 x10^3/uL (140-400) Neutrophils (%) (Auto) 95 % (31-73) Lymphocytes (%) (Auto) 3 % (24-48) Monocytes (%) (Auto) 2 % (0-9) Eosinophils (%) (Auto) 0 % (0-3) Basophils (%) (Auto) 0 % (0-3) Neutrophils # (Auto) 12.6 x10^3uL (1.8-7.7) Lymphocytes # (Auto) 0.4 x10^3/uL (1.0-4.8) Monocytes # (Auto) 0.3 x10^3/uL (0.0-1.1) Eosinophils # (Auto) 0.0 x10^3/uL (0.0-0.7) Basophils # (Auto) 0.0 x10^3/uL (0.0-0.2) Sodium Level 138 mmol/L (136-145) Potassium Level 4.8 mmol/L (3.5-5.1) Chloride Level 101 mmol/L (98-107) Carbon Dioxide Level 24 mmol/L (21-32) Anion Gap 13 (6-14) Blood Urea Nitrogen 100 mg/dL (7-20) Creatinine 5.0 mg/dL (0.6-1.0) Estimated GFR (Cockcroft-Gault) 8.7 BUN/Creatinine Ratio 20 (6-20) Glucose Level 230 mg/dL (70-99) Calcium Level 7.3 mg/dL (8.5-10.1) Total Bilirubin 0.2 mg/dL (0.2-1.0) Aspartate Amino Transf (AST/SGOT) 109 U/L (15-37) Alanine Aminotransferase (ALT/SGPT) 64 U/L (14-59) Alkaline Phosphatase 182 U/L (46-116) Total Protein 4.6 g/dL (6.4-8.2) Albumin 1.4 g/dL (3.4-5.0) Albumin/Globulin Ratio 0.4 (1.0-1.7) O2 Saturation 93 % (92-99) Arterial Blood pH 7.46 (7.35-7.45) Arterial Blood pCO2 at Patient Temp 32 mmHg (35-46) Arterial Blood pO2 at Patient Temp 71 mmHg (65-108) Arterial Blood HCO3 22 mmol/L (21-28) Arterial Blood Base Excess -1 mmol/L (-3-3) FiO2 50 Micro Micro Microbiology 02/12/18 Blood Culture - Preliminary, Resulted NO GROWTH AFTER 3 DAYS 02/10/18 - Final, Complete 02/10/18 - Final, Complete 02/10/18 - Final, Complete 02/10/18 Gram Stain Evaluation - Final, Complete 02/10/18 Sputum Culture - Final, Complete 02/10/18 Sputum Result 1 - Final, Complete 02/13/18 Urine Culture - Final, Complete 02/13/18 Urine Culture Result 1 (JESSICA) - Final, Complete Review of Systems Constitutional: yes: unresponsive Physical Exam General Appearance: no apparent distress Respiratory: decreased breath sounds Heart: S1S2 Abdomen: soft, bowel sounds present Genitourinary: bladder flat Extremities: pulses present Neurology: other (SEDATED) Assessment Assessment IMP ANGELICA CHF - DIASTOLIC ANEMIA COPD PNEUMONIA ACUTE RESP FAILURE PLAN ANTIBIOTICS HD TODAY UF TO DW ARTEMIO PAYTON MD Feb 16, 2018 10:20
--- NOTE | 2018-02-16 10:49 | PDOC ---
Infectious Disease Note Subjective Subjective Remains intubated and sedated Fever Tmax 100.7 yesterday Tube feedings 45 ml/hr ROS ROS unobtainable as patient is intubated and sedated Vital Sign Vital Signs Vital Signs Date Time Temp Pulse Resp B/P (MAP) Pulse Ox O2 Delivery O2 Flow Rate FiO2 02/16/18 09:40 97 Ventilator 02/16/18 09:24 113 178/89 02/16/18 06:00 20 02/16/18 04:00 98.0 98.0 Physical Exam PHYSICAL EXAM GENERAL: Intubated and sedated HEENT: Pupils equally round & reactive. ETT, OGT LUNGS: Clear to auscultation, anteriorly HEART: S1, S2. ABDOMEN: Obese, soft. No grimace or guarding to palpation. Bowel sounds present. rectal tube GENITOURINARY: Indwelling Forman in place. EXTREMITIES: Trace edema in lower extremities bilaterally. No cyanosis. SKIN: Warm without rash. NEUROLOGIC: Unresponsive RIJ and HDC clean Labs Lab Laboratory Tests Test 02/16/18 05:30 02/16/18 09:40 White Blood Count 13.3 x10^3/uL (4.0-11.0) Red Blood Count 2.74 x10^6/uL (3.50-5.40) Hemoglobin 8.3 g/dL (12.0-15.5) Hematocrit 24.5 % (36.0-47.0) Mean Corpuscular Volume 90 fL (79-100) Mean Corpuscular Hemoglobin 30 pg (25-35) Mean Corpuscular Hemoglobin Concent 34 g/dL (31-37) Red Cell Distribution Width 16.2 % (11.5-14.5) Platelet Count 336 x10^3/uL (140-400) Neutrophils (%) (Auto) 95 % (31-73) Lymphocytes (%) (Auto) 3 % (24-48) Monocytes (%) (Auto) 2 % (0-9) Eosinophils (%) (Auto) 0 % (0-3) Basophils (%) (Auto) 0 % (0-3) Neutrophils # (Auto) 12.6 x10^3uL (1.8-7.7) Lymphocytes # (Auto) 0.4 x10^3/uL (1.0-4.8) Monocytes # (Auto) 0.3 x10^3/uL (0.0-1.1) Eosinophils # (Auto) 0.0 x10^3/uL (0.0-0.7) Basophils # (Auto) 0.0 x10^3/uL (0.0-0.2) Sodium Level 138 mmol/L (136-145) Potassium Level 4.8 mmol/L (3.5-5.1) Chloride Level 101 mmol/L (98-107) Carbon Dioxide Level 24 mmol/L (21-32) Anion Gap 13 (6-14) Blood Urea Nitrogen 100 mg/dL (7-20) Creatinine 5.0 mg/dL (0.6-1.0) Estimated GFR (Cockcroft-Gault) 8.7 BUN/Creatinine Ratio 20 (6-20) Glucose Level 230 mg/dL (70-99) Calcium Level 7.3 mg/dL (8.5-10.1) Total Bilirubin 0.2 mg/dL (0.2-1.0) Aspartate Amino Transf (AST/SGOT) 109 U/L (15-37) Alanine Aminotransferase (ALT/SGPT) 64 U/L (14-59) Alkaline Phosphatase 182 U/L (46-116) Total Protein 4.6 g/dL (6.4-8.2) Albumin 1.4 g/dL (3.4-5.0) Albumin/Globulin Ratio 0.4 (1.0-1.7) O2 Saturation 93 % (92-99) Arterial Blood pH 7.46 (7.35-7.45) Arterial Blood pCO2 at Patient Temp 32 mmHg (35-46) Arterial Blood pO2 at Patient Temp 71 mmHg (65-108) Arterial Blood HCO3 22 mmol/L (21-28) Arterial Blood Base Excess -1 mmol/L (-3-3) FiO2 50 Micro 02/12. BLOOD CULTURE Preliminary NO GROWTH AFTER 3 DAYS Objective Assessment Fever 02/15. Sputum with GPC from 02/10. no growth Leukocytosis, stable, on steroids Sepsis with lactic acidosis, present on admission.- better off Levophed Acute respiratory failure, likely aspirated. s/p intubation Hypotension resolved ANGELICA, on dialysis ALLERGY TO METRONIDAZOLE. Non-ST elevation myocardial infarction. Acute diastolic heart failure. Paroxysmal atrial fibrillation. Peripheral vascular disease. History of seizures. History of Clostridium difficile, with fecal transplant. Plan Plan of Care Cont meropenem Off Zyvox and micafungin Monitor labs/cultures/temp Supportive care Patient seen and examined. Chart reviewed in detail. Case discussed with ENAMEL DRIER. Agree with above plan DELON TYLER APRN Feb 16, 2018 10:49 BRITTANY PETERS MD Feb 16, 2018 20:36
--- NOTE | 2018-02-16 10:58 | PDOC ---
PROGRESS NOTES Chief Complaint Chief Complaint Acute hypoxic respiratory failure NOW IPPV (02/09/18), Dialysis began 02/13/18, patient tolerating well Spontaneous respiration on 40% O2, failed returned to Ventilator assisted breathing AC22/450/50% 5 peep Sedated with fentanyl Levophed drip COPD, Smoker - 1 ppday? Severe sepsis - with respiratory failure likely 2/2 pneumonia/bronchitis, fever 102.6F, leukocytosis, tachycardia, Acute diastolic heart failure - BNP of greater than 35,000. diuresis for pulmonary congestion PAD - with carotid, AAA, renovascular disease - cont asa plavix NSTEMI - elevated troponin at 17. Paroxysmal atrial fibrillation. Now in sinus rhythm. on coumadin, INR subtherapeutic, History of a previous CVA - Acute metabolic encephalopathy secondary to multifactorial see above ANGELICA, VMN - new (02/10/18) History of Present Illness History of Present Illness pt. was seen and examined in ICU Sedated with fentanyl spoke with nursing staff Vitals Vitals Vital Signs Date Time Temp Pulse Resp B/P (MAP) Pulse Ox O2 Delivery O2 Flow Rate FiO2 02/16/18 09:40 97 Ventilator 02/16/18 09:24 113 178/89 02/16/18 06:00 20 02/16/18 04:00 98.0 98.0 Physical Exam Physical Exam GENERAL: Intubated and sedated HEENT: Pupils equally round & reactive. ETT, OGT LUNGS: Clear to auscultation, anteriorly HEART: S1, S2. ABDOMEN: Obese, soft. No grimace or guarding to palpation. Bowel sounds present. rectal tube GENITOURINARY: Indwelling Forman in place. EXTREMITIES: Trace edema in lower extremities bilaterally. No cyanosis. SKIN: Warm without rash. NEUROLOGIC: Unresponsive RIJ and HDC clean General: Other (intubated on a ventilator.) Heart: Regular rate Lungs: Crackles Abdomen: Normal bowel sounds Extremities: No clubbing, No cyanosis, No edema, Normal pulses, No tenderness/ swelling Skin: No rashes, No breakdown, No significant lesion Labs LABS Laboratory Tests Test 02/16/18 05:30 02/16/18 09:40 White Blood Count 13.3 x10^3/uL (4.0-11.0) Red Blood Count 2.74 x10^6/uL (3.50-5.40) Hemoglobin 8.3 g/dL (12.0-15.5) Hematocrit 24.5 % (36.0-47.0) Mean Corpuscular Volume 90 fL (79-100) Mean Corpuscular Hemoglobin 30 pg (25-35) Mean Corpuscular Hemoglobin Concent 34 g/dL (31-37) Red Cell Distribution Width 16.2 % (11.5-14.5) Platelet Count 336 x10^3/uL (140-400) Neutrophils (%) (Auto) 95 % (31-73) Lymphocytes (%) (Auto) 3 % (24-48) Monocytes (%) (Auto) 2 % (0-9) Eosinophils (%) (Auto) 0 % (0-3) Basophils (%) (Auto) 0 % (0-3) Neutrophils # (Auto) 12.6 x10^3uL (1.8-7.7) Lymphocytes # (Auto) 0.4 x10^3/uL (1.0-4.8) Monocytes # (Auto) 0.3 x10^3/uL (0.0-1.1) Eosinophils # (Auto) 0.0 x10^3/uL (0.0-0.7) Basophils # (Auto) 0.0 x10^3/uL (0.0-0.2) Sodium Level 138 mmol/L (136-145) Potassium Level 4.8 mmol/L (3.5-5.1) Chloride Level 101 mmol/L (98-107) Carbon Dioxide Level 24 mmol/L (21-32) Anion Gap 13 (6-14) Blood Urea Nitrogen 100 mg/dL (7-20) Creatinine 5.0 mg/dL (0.6-1.0) Estimated GFR (Cockcroft-Gault) 8.7 BUN/Creatinine Ratio 20 (6-20) Glucose Level 230 mg/dL (70-99) Calcium Level 7.3 mg/dL (8.5-10.1) Total Bilirubin 0.2 mg/dL (0.2-1.0) Aspartate Amino Transf (AST/SGOT) 109 U/L (15-37) Alanine Aminotransferase (ALT/SGPT) 64 U/L (14-59) Alkaline Phosphatase 182 U/L (46-116) Total Protein 4.6 g/dL (6.4-8.2) Albumin 1.4 g/dL (3.4-5.0) Albumin/Globulin Ratio 0.4 (1.0-1.7) O2 Saturation 93 % (92-99) Arterial Blood pH 7.46 (7.35-7.45) Arterial Blood pCO2 at Patient Temp 32 mmHg (35-46) Arterial Blood pO2 at Patient Temp 71 mmHg (65-108) Arterial Blood HCO3 22 mmol/L (21-28) Arterial Blood Base Excess -1 mmol/L (-3-3) FiO2 50 Review of Systems Review of Systems unable to obtain Assessment and Plan Assessmemt and Plan Assessment Acute hypoxic respiratory failure NOW IPPV (02/09/18) Dialysis began 02/13/18, patient tolerating well Returned to spotaneous respiration on 50% Fi02, 10 PEEP, sat 93% 02/16/18 -u-[id number]-t-u-r-n-e-d- -t-o- -G-h-g-o-u-a-a-t-o-r- -j-v-s-i-s-t-e-d- -e-q-r-i-q-i-i-n-g- -A-C-2-2--/--4-5-0--/--5-0--%- -5- -p-e-e-p- -1-2--/--2-1- -/--1-8- Spontaneous respiration on 40% O2 Sedated with fentanyl Levophed drip COPD, Smoker - 1 ppday? Severe sepsis - with respiratory failure likely 2/2 pneumonia/bronchitis, fever 102.6F, leukocytosis, tachycardia, Acute diastolic heart failure - BNP of greater than 35,000. diuresis for pulmonary congestion PAD - with carotid, AAA, renovascular disease - cont asa plavix NSTEMI - elevated troponin at 17. Paroxysmal atrial fibrillation. Now in sinus rhythm. on coumadin, INR subtherapeutic, History of a previous CVA - Acute metabolic encephalopathy secondary to multifactorial see above ANGELICA, VMN - new (02/10/18) Plan Returned to spotaneous respiration on 50% Fi02, 10 PEEP, sat 93% 02/16/18 Forman to BSD HD began 02/13/18 ICU monitoring Continue Ventilation weaning Recheck Labs OG feeds 45cc/hr Comment Review of Relevant I have reviewed the following items pat (where applicable) has been applied. Labs Laboratory Tests Test 02/14/18 12:44 02/15/18 05:40 02/16/18 05:30 02/16/18 09:40 White Blood Count 10.3 x10^3/uL (4.0-11.0) 13.9 x10^3/uL (4.0-11.0) 13.3 x10^3/uL (4.0-11.0) Red Blood Count 2.48 x10^6/uL (3.50-5.40) 2.57 x10^6/uL (3.50-5.40) 2.74 x10^6/uL (3.50-5.40) Hemoglobin 7.7 g/dL (12.0-15.5) 7.9 g/dL (12.0-15.5) 8.3 g/dL (12.0-15.5) Hematocrit 22.2 % (36.0-47.0) 23.0 % (36.0-47.0) 24.5 % (36.0-47.0) Mean Corpuscular Volume 89 fL (79-100) 90 fL (79-100) 90 fL (79-100) Mean Corpuscular Hemoglobin 31 pg (25-35) 31 pg (25-35) 30 pg (25-35) Mean Corpuscular Hemoglobin Concent 35 g/dL (31-37) 34 g/dL (31-37) 34 g/dL (31-37) Red Cell Distribution Width 16.8 % (11.5-14.5) 17.2 % (11.5-14.5) 16.2 % (11.5-14.5) Platelet Count 127 x10^3/uL (140-400) 223 x10^3/uL (140-400) 336 x10^3/uL (140-400) Neutrophils (%) (Auto) 95 % (31-73) 95 % (31-73) Lymphocytes (%) (Auto) 3 % (24-48) 3 % (24-48) Monocytes (%) (Auto) 2 % (0-9) 2 % (0-9) Eosinophils (%) (Auto) 0 % (0-3) 0 % (0-3) Basophils (%) (Auto) 0 % (0-3) 0 % (0-3) Neutrophils # (Auto) 13.2 x10^3uL (1.8-7.7) 12.6 x10^3uL (1.8-7.7) Lymphocytes # (Auto) 0.4 x10^3/uL (1.0-4.8) 0.4 x10^3/uL (1.0-4.8) Monocytes # (Auto) 0.2 x10^3/uL (0.0-1.1) 0.3 x10^3/uL (0.0-1.1) Eosinophils # (Auto) 0.0 x10^3/uL (0.0-0.7) 0.0 x10^3/uL (0.0-0.7) Basophils # (Auto) 0.0 x10^3/uL (0.0-0.2) 0.0 x10^3/uL (0.0-0.2) Sodium Level 139 mmol/L (136-145) 138 mmol/L (136-145) Potassium Level 4.6 mmol/L (3.5-5.1) 4.8 mmol/L (3.5-5.1) Chloride Level 102 mmol/L (98-107) 101 mmol/L (98-107) Carbon Dioxide Level 26 mmol/L (21-32) 24 mmol/L (21-32) Anion Gap 11 (6-14) 13 (6-14) Blood Urea Nitrogen 74 mg/dL (7-20) 100 mg/dL (7-20) Creatinine 3.7 mg/dL (0.6-1.0) 5.0 mg/dL (0.6-1.0) Estimated GFR (Cockcroft-Gault) 12.3 8.7 Glucose Level 149 mg/dL (70-99) 230 mg/dL (70-99) Calcium Level 7.6 mg/dL (8.5-10.1) 7.3 mg/dL (8.5-10.1) Magnesium Level 2.7 mg/dL (1.8-2.4) BUN/Creatinine Ratio 20 (6-20) Total Bilirubin 0.2 mg/dL (0.2-1.0) Aspartate Amino Transf (AST/SGOT) 109 U/L (15-37) Alanine Aminotransferase (ALT/SGPT) 64 U/L (14-59) Alkaline Phosphatase 182 U/L (46-116) Total Protein 4.6 g/dL (6.4-8.2) Albumin 1.4 g/dL (3.4-5.0) Albumin/Globulin Ratio 0.4 (1.0-1.7) O2 Saturation 93 % (92-99) Arterial Blood pH 7.46 (7.35-7.45) Arterial Blood pCO2 at Patient Temp 32 mmHg (35-46) Arterial Blood pO2 at Patient Temp 71 mmHg (65-108) Arterial Blood HCO3 22 mmol/L (21-28) Arterial Blood Base Excess -1 mmol/L (-3-3) FiO2 50 Laboratory Tests Test 02/16/18 05:30 02/16/18 09:40 White Blood Count 13.3 x10^3/uL (4.0-11.0) Red Blood Count 2.74 x10^6/uL (3.50-5.40) Hemoglobin 8.3 g/dL (12.0-15.5) Hematocrit 24.5 % (36.0-47.0) Mean Corpuscular Volume 90 fL (79-100) Mean Corpuscular Hemoglobin 30 pg (25-35) Mean Corpuscular Hemoglobin Concent 34 g/dL (31-37) Red Cell Distribution Width 16.2 % (11.5-14.5) Platelet Count 336 x10^3/uL (140-400) Neutrophils (%) (Auto) 95 % (31-73) Lymphocytes (%) (Auto) 3 % (24-48) Monocytes (%) (Auto) 2 % (0-9) Eosinophils (%) (Auto) 0 % (0-3) Basophils (%) (Auto) 0 % (0-3) Neutrophils # (Auto) 12.6 x10^3uL (1.8-7.7) Lymphocytes # (Auto) 0.4 x10^3/uL (1.0-4.8) Monocytes # (Auto) 0.3 x10^3/uL (0.0-1.1) Eosinophils # (Auto) 0.0 x10^3/uL (0.0-0.7) Basophils # (Auto) 0.0 x10^3/uL (0.0-0.2) Sodium Level 138 mmol/L (136-145) Potassium Level 4.8 mmol/L (3.5-5.1) Chloride Level 101 mmol/L (98-107) Carbon Dioxide Level 24 mmol/L (21-32) Anion Gap 13 (6-14) Blood Urea Nitrogen 100 mg/dL (7-20) Creatinine 5.0 mg/dL (0.6-1.0) Estimated GFR (Cockcroft-Gault) 8.7 BUN/Creatinine Ratio 20 (6-20) Glucose Level 230 mg/dL (70-99) Calcium Level 7.3 mg/dL (8.5-10.1) Total Bilirubin 0.2 mg/dL (0.2-1.0) Aspartate Amino Transf (AST/SGOT) 109 U/L (15-37) Alanine Aminotransferase (ALT/SGPT) 64 U/L (14-59) Alkaline Phosphatase 182 U/L (46-116) Total Protein 4.6 g/dL (6.4-8.2) Albumin 1.4 g/dL (3.4-5.0) Albumin/Globulin Ratio 0.4 (1.0-1.7) O2 Saturation 93 % (92-99) Arterial Blood pH 7.46 (7.35-7.45) Arterial Blood pCO2 at Patient Temp 32 mmHg (35-46) Arterial Blood pO2 at Patient Temp 71 mmHg (65-108) Arterial Blood HCO3 22 mmol/L (21-28) Arterial Blood Base Excess -1 mmol/L (-3-3) FiO2 50 Microbiology 02/12/18 Blood Culture - Preliminary, Resulted NO GROWTH AFTER 3 DAYS 02/10/18 - Final, Complete 02/10/18 - Final, Complete 02/10/18 - Final, Complete 02/10/18 Gram Stain Evaluation - Final, Complete 02/10/18 Sputum Culture - Final, Complete 02/10/18 Sputum Result 1 - Final, Complete 02/13/18 Urine Culture - Final, Complete 02/13/18 Urine Culture Result 1 (JESSICA) - Final, Complete Medications Current Medications Albuterol/ Ipratropium (Duoneb) 3 ml 1X ONCE NEB Last administered on at 17:14; Start 02/08/18 at 16:00; Stop 02/08/18 at 16:01; Status DC Vancomycin HCl (Vanco Per Pharmacy) 1 each PRN DAILY PRN MC SEE COMMENTS Last administered on 02/09/18at 08:59; Start 02/08/18 at 16:15; Stop 02/10/18 at 09 :07; Status DC Piperacillin Sod/ Tazobactam Sod (Zosyn Per Pharmacy) 1 each PRN DAILY PRN MC SEE COMMENTS; Start 02/08/18 at 16:15; Stop 02/12/18 at 07:24; Status DC Vancomycin HCl 1.75 gm/Sodium Chloride 500 ml @ 250 mls/hr 1X ONCE IV Last administered on 02/08/18at 16:36; Start 02/08/18 at 17:00; Stop 02/08/18 at 18 :59; Status DC Piperacillin Sod/ Tazobactam Sod 3.375 gm/Sodium Chloride 50 ml @ 100 mls/hr 1X ONCE IV Last administered on 02/08/18at 16:36; Start 02/08/18 at 16:30; Stop 02/08/18 at 16:59; Status DC Furosemide (Lasix) 20 mg 1X ONCE IVP Last administered on 02/08/18at 16:36; Start 02/08/18 at 16:30; Stop 02/08/18 at 16:31; Status DC Aspirin (Children'S Aspirin) 324 mg 1X ONCE PO Last administered on at 16:36; Start 02/08/18 at 16:30; Stop 02/08/18 at 16:31; Status DC Furosemide (Lasix) 20 mg 1X ONCE IVP Last administered on 02/08/18at 18:07; Start 02/08/18 at 17:00; Stop 02/08/18 at 17:01; Status DC Ondansetron HCl (Zofran) 4 mg 1X ONCE IV Last administered on 02/08/18at 17:00 ; Start 02/08/18 at 17:00; Stop 02/08/18 at 17:01; Status DC Ondansetron HCl (Zofran) 4 mg STK-MED ONCE .ROUTE ; Start 02/08/18 at 16:51; Stop 02/08/18 at 16:52; Status DC Heparin Sodium/ Dextrose 500 ml @ 0 mls/hr CONT PRN IV SEE I/O RECORD; Start 02/08/18 at 17:30; Status UNV Info (Anti-Coagulation Monitoring By Pharmacy) 1 each PRN DAILY PRN MC SEE COMMENTS Last administered on 02/11/18at 12:25; Start 02/08/18 at 17:30; Stop 02/13/18 at 09:17; Status DC Heparin Sodium/ Dextrose 500 ml @ 0 mls/hr CONT PRN IV SEE I/O RECORD Last administered on 02/12/18at 19:46; Start 02/08/18 at 17:30; Stop 02/13/18 at 08 :22; Status DC Heparin Sodium (Porcine) (Heparin Sodium) 1,800 unit PRN Q6HRS PRN IV FOR UFH LEVEL LESS THAN 0.2 Last administered on 02/08/18at 20:10; Start 02/08/18 at 17 :30; Stop 02/13/18 at 08:22; Status DC Ondansetron HCl (Zofran) 4 mg 1X PRN PRN IV NAUSEA/VOMITING; Start 02/08/18 at 18:00; Stop 02/09/18 at 09:06; Status DC Piperacillin Sod/ Tazobactam Sod 3.375 gm/Sodium Chloride 50 ml @ 100 mls/hr Q6HRS IV Last administered on 02/11/18at 05:37; Start 02/09/18 at 00:00; Stop 02/11/18 at 07:14; Status DC Vancomycin HCl 1 gm/Sodium Chloride 250 ml @ 250 mls/hr Q24H IV Last administered on 02/09/18at 16:30; Start 02/09/18 at 16:30; Stop 02/10/18 at 09 :07; Status DC Vancomycin HCl (Vancomycin Trough Level) 1 each 1X ONCE MC ; Start 02/10/18 at 16:00; Stop 02/10/18 at 16:00; Status DC Magnesium Sulfate/ Dextrose 100 ml @ 25 mls/hr 1X ONCE IV Last administered on 02/08/18at 22:03; Start 02/08/18 at 22:00; Stop 02/09/18 at 01:59; Status DC Aspirin (Radha Aspirin) 325 mg DAILY PO ; Start 02/09/18 at 09:00; Stop at 10:16; Status DC Atorvastatin Calcium (Lipitor) 10 mg HS PO ; Start 02/09/18 at 21:00; Stop at 21:00; Status DC Clonidine HCl (Catapres) 0.1 mg QHS PO Last administered on 02/08/18at 22:05; Start 02/08/18 at 22:00; Stop 02/09/18 at 10:16; Status DC Docusate Sodium (Colace) 100 mg BID PO ; Start 02/09/18 at 09:00; Stop at 10:16; Status DC Gabapentin (Neurontin) 300 mg TID PO Last administered on 02/08/18at 22:08; Start 02/08/18 at 22:20; Stop 02/09/18 at 10:16; Status DC Labetalol HCl (Normodyne Iv Push) 10 mg PRN Q2HR PRN IVP HYPERTENSION, SEE COMMENTS Last administered on 02/12/18at 15:12; Start 02/08/18 at 21:30; Stop 02/12/18 at 16:22; Status DC Lorazepam (Ativan) 1 mg PRN Q4HRS PRN IV ANXIETY / AGITATION Last administered on 02/15/18at 04:02; Start 02/08/18 at 21:30 Morphine Sulfate (Morphine Sulfate) 4 mg PRN Q4HRS PRN IV PAIN Last administered on 02/09/18at 19:45; Start 02/08/18 at 21:30 Acetaminophen (Tylenol Supp) 325 mg PRN Q6HRS PRN MT MILD PAIN / TEMP Last administered on 02/09/18at 09:30; Start 02/09/18 at 06:45 Ipratropium [place] (Atrovent) 0.5 mg RTQID NEB Last administered on at 09:40; Start 02/09/18 at 08:00 Budesonide (Pulmicort) 0.5 mg RTBID NEB Last administered on 02/16/18at 09:40; Start 02/09/18 at 08:00 Famotidine (Pepcid Vial) 20 mg QHS IVP Last administered on 02/12/18at 21:56; Start 02/09/18 at 21:00; Stop 02/13/18 at 14:47; Status DC Acetaminophen (Tylenol) 500 mg PRN Q6HRS PRN PO FEVER/KUO Last administered on 02/14/18at 17:23; Start 02/09/18 at 09:00 Ondansetron HCl (Zofran) 4 mg PRN Q6HRS PRN IV NAUSEA/VOMITING; Start at 09:00 Ondansetron HCl (Zofran Odt) 4 mg PRN Q6HRS PRN PO NAUSEA/VOMITING; Start at 09:00 Acetaminophen/ Hydrocodone Bitart (Lortab 10/325) 1 tab PRN Q4HRS PRN PO MODERATE PAIN; Start 02/09/18 at 09:00 Magnesium Hydroxide (Milk Of Magnesia) 400 mg DAILY PO Last administered on at 08:31; Start 02/09/18 at 09:00 Oxycodone HCl (OxyCONTIN) 10 mg BID PO ; Start 02/09/18 at 09:00; Stop at 10:16; Status DC Oxycodone/ Acetaminophen (Percocet 5/325) 1 tab BID PO ; Start 02/09/18 at 09: 00; Stop 02/09/18 at 10:16; Status DC Tramadol HCl (Ultram) 50 mg PRN DAILY PRN PO MILD PAIN; Start 02/09/18 at 09: 00 Non-Formulary Medication (Acetaminophen ) 1 tab BID PO ; Start 02/09/18 at 09: 00; Stop 02/09/18 at 09:12; Status DC Non-Formulary Medication (Albuterol Sulfate (Albuterol Sulfate Neb Soln)) 1 vial QID NEB ; Start 02/09/18 at 09:00; Stop 02/09/18 at 09:22; Status DC Citalopram Hydrobromide (CeleXA) 40 mg QHS PO ; Start 02/09/18 at 21:00; Stop 02/09/18 at 21:00; Status DC Hydrochlorothiazide (Microzide) 12.5 mg QHS PO ; Start 02/09/18 at 21:00; Stop 02/09/18 at 21:00; Status DC Non-Formulary Medication (Magnesium Oxide ) 1 tab DAILY PO ; Start 02/09/18 at 09:00; Stop 02/09/18 at 09:14; Status DC Non-Formulary Medication (Multivitamin (Multivitamins)) 1 tab DAILY PO ; Start 02/09/18 at 09:00; Stop 02/09/18 at 09:14; Status DC Nicotine (Nicoderm Cq 14mg) 1 patch DAILY TD Last administered on 02/14/18at 08 :08; Start 02/09/18 at 10:00 Ondansetron HCl (Zofran Odt) 4 mg Q6HRS PO Last administered on 02/14/18at 05: 52; Start 02/09/18 at 12:00; Stop 02/14/18 at 15:05; Status DC Non-Formulary Medication (Polyethylene Glycol 3350 (Miralax)) 1 packet DAILY PO ; Start 02/09/18 at 09:00; Stop 02/09/18 at 09:17; Status DC Quetiapine Fumarate (SEROquel) 25 mg QHS PO ; Start 02/09/18 at 21:00; Stop at 21:00; Status DC Labetalol HCl (Normodyne Iv Push) 10 mg PRN Q2HR PRN IVP HYPERTENSION, SEE COMMENTS; Start 02/09/18 at 09:00; Stop 02/09/18 at 09:06; Status DC Acetaminophen (Tylenol) 500 mg BID PO ; Start 02/09/18 at 10:00; Stop at 10:16; Status DC Magnesium Oxide (Magnesium Oxide) 400 mg DAILY PO Last administered on at 09:25; Start 02/09/18 at 10:00 Multivitamins (Thera M Plus) 1 tab DAILY PO ; Start 02/09/18 at 10:00; Stop at 10:16; Status DC Polyethylene Glycol (miraLAX PACKET) 17 gm DAILY PO ; Start 02/09/18 at 10:00; Stop 02/09/18 at 10:16; Status DC Albuterol Sulfate (Ventolin Neb Soln) 2.5 mg RTQID NEB Last administered on at 10:45; Start 02/09/18 at 12:00; Stop 02/15/18 at 18:59; Status DC Furosemide (Lasix) 60 mg 1X ONCE IVP Last administered on 02/09/18at 20:16; Start 02/09/18 at 20:00; Stop 02/09/18 at 20:01; Status DC Rocuronium [place] (Zemuron) 50 mg STK-MED ONCE .ROUTE ; Start 02/09/18 at 20: 23; Stop 02/09/18 at 20:24; Status DC Fentanyl Citrate 30 ml @ 0 mls/hr CONT PRN IV SEE PROTOCOL Last administered on 02/15/18at 19:26; Start 02/09/18 at 20:30 Propofol 100 ml @ 0 mls/hr CONT PRN IV SEE PROTOCOL Last administered on at 14:09; Start 02/09/18 at 20:30 Midazolam HCl 100 ml @ 5 mls/hr CONT PRN IV SEE I/O RECORD Last administered on 02/12/18at 03:38; Start 02/09/18 at 22:00; Stop 02/13/18 at 17:22; Status DC Norepinephrine Bitartrate 250 ml @ As Directed STK-MED ONCE IV ; Start at 02:33; Stop 02/10/18 at 02:35; Status DC Norepinephrine Bitartrate 250 ml @ 1.875 mls/ hr CONT PRN IV SEE I/O RECORD Last administered on 02/14/18at 15:02; Start 02/10/18 at 02:45 Methylprednisolone Sodium Succinate (SOLU-Medrol 40MG VIAL) 40 mg Q12HR IV Last administered on 02/16/18at 09:26; Start 02/10/18 at 09:00 Piperacillin Sod/ Tazobactam Sod 2.25 gm/Sodium Chloride 50 ml @ 100 mls/hr Q6HRS IV Last administered on 02/12/18at 05:47; Start 02/11/18 at 12:00; Stop 02/12/18 at 07:24; Status DC Propofol (Diprivan) 200 mg STK-MED ONCE IV ; Start 02/09/18 at 07:00; Stop at 07:43; Status DC Succinylcholine Chloride (Anectine) 200 mg STK-MED ONCE .ROUTE ; Start at 07:00; Stop 02/11/18 at 07:43; Status DC Phenylephrine HCl (PHENYLEPHRINE in 0.9% NACL PF) 1 mg STK-MED ONCE IV ; Start 02/09/18 at 07:00; Stop 02/11/18 at 07:43; Status DC Ephedrine Sulfate (ePHEDrine PF IN SALINE SYRINGE) 50 mg STK-MED ONCE IV ; Start 02/09/18 at 07:00; Stop 02/11/18 at 07:43; Status DC Rocuronium [place] (Zemuron) 50 mg STK-MED ONCE .ROUTE ; Start 02/09/18 at 21: 00; Stop 02/11/18 at 08:22; Status DC Linezolid/Dextrose 300 ml @ 300 mls/hr Q12HR IV Last administered on at 08:32; Start 02/12/18 at 09:00; Stop 02/15/18 at 10:31; Status DC Micafungin Sodium 100 mg/Dextrose 100 ml @ 100 mls/hr Q24H IV Last administered on 02/15/18at 08:34; Start 02/12/18 at 10:00; Stop 02/15/18 at 10 :31; Status DC Cefepime HCl (Maxipime) 1 gm Q12HR IVP Last administered on 02/13/18at 08:19; Start 02/12/18 at 09:00; Stop 02/13/18 at 10:56; Status DC Atorvastatin Calcium (Lipitor) 10 mg QHS PO Last administered on 02/15/18at 20: 59; Start 02/12/18 at 21:00 Labetalol HCl (Normodyne Iv Push) 20 mg PRN Q2HR PRN IVP HYPERTENSION, SEE COMMENTS Last administered on 02/13/18at 05:34; Start 02/12/18 at 16:15 Aspirin (Children'S Aspirin) 81 mg DAILYWBKFT PO Last administered on at 09:25; Start 02/12/18 at 16:15 Metoprolol Tartrate (Lopressor) 25 mg BID PO Last administered on 02/16/18at 09 :24; Start 02/13/18 at 11:00 Cefepime HCl (Maxipime) 1 gm QHS IVP ; Start 02/13/18 at 21:00; Stop 02/13/18 at 21:00; Status DC Lidocaine/Sodium Bicarbonate (Buffered Lidocaine 1%) 3 ml STK-MED ONCE .ROUTE ; Start 02/13/18 at 13:32; Stop 02/13/18 at 13:33; Status DC Heparin Sodium (Porcine) (Heparin Sodium) 10,000 unit STK-MED ONCE .ROUTE ; Start 02/13/18 at 13:32; Stop 02/13/18 at 13:33; Status DC Midazolam HCl (Versed) 5 mg STK-MED ONCE .ROUTE ; Start 02/13/18 at 14:04; Stop 02/13/18 at 14:05; Status DC Midazolam HCl (Versed) 5 mg 1X ONCE IV Last administered on 02/13/18at 14:10; Start 02/13/18 at 14:15; Stop 02/13/18 at 14:16; Status DC Lidocaine/Sodium Bicarbonate (Buffered Lidocaine 1%) 4 ml 1X ONCE INJ Last administered on 02/13/18at 14:57; Start 02/13/18 at 14:45; Stop 02/13/18 at 14 :52; Status DC Heparin Sodium (Porcine) (Heparin Sodium) 2,200 unit 1X ONCE INT CAT Last administered on 02/13/18at 15:02; Start 02/13/18 at 14:45; Stop 02/13/18 at 14 :52; Status DC Pantoprazole Sodium (PROTONIX VIAL for IV PUSH) 40 mg BIDAC IVP Last administered on 02/16/18at 09:26; Start 02/13/18 at 16:30 Heparin Sodium (Porcine) (Heparin Sodium) 2,500 unit 1X ONCE INT CAT ; Start 02/13/18 at 15:00; Stop 02/13/18 at 15:03; Status DC Meropenem 500 mg/ Sodium Chloride 50 ml @ 100 mls/hr Q24H IV Last administered on 02/15/18at 16:50; Start 02/13/18 at 16:00 Midazolam HCl 100 ml @ 5 mls/hr CONT PRN IV SEE I/O RECORD Last administered on 02/15/18at 05:58; Start 02/13/18 at 15:15 Midazolam HCl (Versed) 5 mg STK-MED ONCE .ROUTE ; Start 02/13/18 at 15:15; Stop 02/13/18 at 15:16; Status DC Clopidogrel Bisulfate (Plavix) 75 mg [id number] PO Last administered on 12/22/ 18at 09:25; Start 02/13/18 at 16:00 Sodium Chloride 1,000 ml @ 1,000 mls/hr Q1H PRN IV hypotension; Start at 19:27; Stop 02/14/18 at 01:26; Status DC Albumin Human 200 ml @ 200 mls/hr 1X PRN PRN IV Hypotension; Start 02/13/18 at 19:30; Stop 02/14/18 at 01:29; Status DC Sodium Chloride 1,000 ml @ 400 mls/hr Q2H30M PRN IV PATENCY; Start 02/13/18 at 19:27; Stop 02/14/18 at 07:26; Status DC Info (PHARMACY MONITORING -- do not chart) 1 each PRN DAILY PRN MC SEE COMMENTS ; Start 02/13/18 at 19:30 Info (PHARMACY MONITORING -- do not chart) 1 each PRN DAILY PRN MC SEE COMMENTS ; Start 02/13/18 at 19:30; Status UNV Sodium Chloride 1,000 ml @ 1,000 mls/hr Q1H PRN IV hypotension; Start at 08:16; Stop 02/14/18 at 14:15; Status DC Sodium Chloride 1,000 ml @ 400 mls/hr Q2H30M PRN IV PATENCY; Start 02/14/18 at 08:16; Stop 02/14/18 at 20:15; Status DC Info (PHARMACY MONITORING -- do not chart) 1 each PRN DAILY PRN MC SEE COMMENTS ; Start 02/14/18 at 08:30; Status UNV Midazolam HCl (Versed) 5 mg STK-MED ONCE .ROUTE ; Start 02/13/18 at 15:30; Stop 02/14/18 at 09:00; Status DC Albuterol Sulfate (Ventolin Neb Soln) 2.5 mg PRN Q4HRS PRN NEB SHORTNESS OF BREATH; Start 02/15/18 at 19:00 Active Scripts Active Percocet 5-325 Mg Tablet (Oxycodone/Acetaminophen) 1 Each Tablet 1 Tab PO BID 3 Days Reported Zofran (Ondansetron Hcl) 4 Mg Tablet 1 Tab PO Q6HRS Milk Of Magnesia (Magnesium Hydroxide) 400 Mg/5 Ml Oral.susp 400 Mg PO Acetaminophen 500 Mg Tablet 1 Tab PO BID Clonidine Hcl 0.1 Mg Tablet 1 Tab PO QHS Tramadol Hcl 50 Mg Tablet 50 Mg PO DAILY PRN Hydralazine Hcl 20 Mg/1 Ml Vial 20 Mg IJ Gabapentin (Gabapentin) 300 Mg Capsule 300 Mg PO TID Acidophilus (Lactobacillus Acidophilus) 1 Each Capsule 1 Each PO Atorvastatin Calcium 10 Mg Tablet 1 Tab PO DAILY Vitamin C (Ascorbic Acid) 500 Mg Tablet.er 500 Mg PO Aspirin 325 Mg Tablet 1 Tab PO DAILY Colace (Docusate Sodium) 100 Mg Capsule 1 Cap PO BID Magnesium Oxide 400 Mg Tablet 1 Tab PO DAILY Multivitamins (Multivitamin) 1 Each Tablet 1 Tab PO DAILY NICODERM CQ 14mg (Nicotine) 1 Each Patch.td24 1 Patch TP DAILY Miralax (Polyethylene Glycol 3350) 17 Gm Powd.pack 1 Packet PO DAILY Albuterol Sulfate Neb Soln (Albuterol Sulfate) 0.63 Mg/3 Ml Vial.neb 1 Vial NEB QID Prednisone 20 Mg Tablet 1 Tab PO DAILY Seroquel (Quetiapine Fumarate) 25 Mg Tablet 1 Tab PO QHS Hydrochlorothiazide Tablet (Hydrochlorothiazide) 12.5 Mg Tablet 1 Tab PO QHS Lexapro (Escitalopram Oxalate) 20 Mg Tablet 1 Tab PO QHS Hydrocodone-Apap 10-325 (Hydrocodone Bit/Acetaminophen) 1 Each Tablet 1 Tab PO PRN Q4HRS Oxycontin (Oxycodone HCl) 10 Mg Tab.er.12h 10 Mg PO BID Vitals/I & O Vital Sign - Last 24 Hours 02/15/18 02/15/18 02/15/18 02/15/18 11:00 12:00 12:00 12:10 Temp 99.4 100.7 99.4 100.7 Pulse 108 110 107 Resp 29 29 26 B/P (MAP) 117/61 (79) 147/71 (96) 147/71 Pulse Ox 92 92 O2 Delivery Ventilator Ventilator Mechanical Ventilator 02/15/18 02/15/18 02/15/18 02/15/18 13:00 13:07 14:00 15:00 Pulse 100 98 98 Resp 29 29 29 B/P (MAP) 93/55 (68) 99/56 (70) 86/49 (61) Pulse Ox 92 96 92 92 O2 Delivery Ventilator Ventilator Ventilator Ventilator 02/15/18 02/15/18 02/15/18 02/15/18 16:00 16:00 16:00 17:00 Temp 99.8 99.8 Pulse 100 97 Resp 29 29 B/P (MAP) 90/52 (65) 110/62 (78) Pulse Ox 96 92 92 O2 Delivery Mechanical Ventilator Ventilator Ventilator Ventilator 02/15/18 02/15/18 02/15/18 02/15/18 18:00 18:19 19:00 19:51 Pulse 111 110 Resp 29 22 B/P (MAP) 107/68 (81) 149/77 (101) Pulse Ox 92 97 97 96 O2 Delivery Ventilator Ventilator Ventilator Ventilator 02/15/18 02/15/18 02/15/18 02/15/18 20:00 20:00 21:00 21:03 Temp 99.8 99.8 Pulse 112 87 111 Resp 24 22 B/P (MAP) 163/77 (105) 123/66 (85) 150/69 Pulse Ox 97 97 O2 Delivery Mechanical Ventilator Ventilator Ventilator 02/15/18 02/15/18 02/15/18 02/16/18 22:00 23:00 23:09 00:00 Pulse 88 86 Resp 22 22 B/P (MAP) 137/70 (92) 103/56 (72) Pulse Ox 97 97 97 O2 Delivery Ventilator Ventilator Ventilator Mechanical Ventilator 02/16/18 02/16/18 02/16/18 02/16/18 00:00 01:00 01:27 02:00 Temp 99.2 99.2 Pulse 92 103 103 Resp 22 25 25 B/P (MAP) 109/61 (77) 102/60 (74) 97/57 (70) Pulse Ox 97 97 93 94 O2 Delivery Ventilator Ventilator Ventilator Ventilator 02/16/18 02/16/18 02/16/18 02/16/18 03:00 04:00 04:00 04:00 Temp 98.0 98.0 Pulse 93 106 Resp 25 25 B/P (MAP) 142/75 (97) 145/73 (97) Pulse Ox 94 93 93 O2 Delivery Ventilator Ventilator Mechanical Ventilator Ventilator 02/16/18 02/16/18 02/16/18 02/16/18 05:00 06:00 06:15 07:20 Pulse 103 103 Resp 21 20 B/P (MAP) 176/80 (112) 95/65 (75) Pulse Ox 94 95 93 98 O2 Delivery Ventilator Ventilator Ventilator Ventilator 02/16/18 02/16/18 09:24 09:40 Pulse 113 B/P (MAP) 178/89 Pulse Ox 97 O2 Delivery Ventilator Intake and Output 02/15/18 02/15/18 02/16/18 15:01 23:01 07:01 Intake Total 750 ml 930 ml 792 ml Output Total 40 ml 75 ml 75 ml Balance 710 ml 855 ml 717 ml Nutrition Consultation Dietary Evaluation: Recommendations by RD: Increase Calorie Intake Comments: Continue TF per current order: Jevity 1.5@goal rate 45 ml/hr w/150 ml water flushes q4 hrs or flushes per MD Expected Outcomes/Goals: TF for nutrition needs while pt remains intubated - met, goal ongoing Interpretation of weight loss: >10% in 6 months Malnutrition Findings: Body Fat Depletion (Non Severe: Mild Depletion Weight Status: Appropriate KYLE RYAN III DO Feb 16, 2018 10:58
--- NOTE | 2018-02-16 12:12 | PDOC ---
PROGRESS NOTES Subjective Subjective Patient seen and examined She remains intubated on a ventilator. Objective Objective Vital Signs Date Time Temp Pulse Resp B/P (MAP) Pulse Ox O2 Delivery O2 Flow Rate FiO2 02/16/18 09:40 97 Ventilator 02/16/18 09:24 113 178/89 02/16/18 06:00 20 02/16/18 04:00 98.0 98.0 Intake and Output 02/16/18 07:01 Intake Total 2472 ml Output Total 190 ml Balance 2282 ml Tube Feeding 2122 ml Blood Product IV Normal Saline Flush 350 ml Output Urine Total 190 ml Physical Exam Abdomen: Normal bowel sounds Heart: Other (rate 110) General: Other (intubated on a ventilator) Assessment Assessment Problems Medical Problems: (1) CHF (congestive heart failure) Status: Acute (2) Elevated troponin Status: Acute (3) Heart failure Status: Acute (4) Respiratory failure Status: Acute (5) Shortness of breath Status: Acute 1. Acute hypoxic respiratory failure: The patient remains intubated. Continue present treatments. Goals of care to be discussed with the patient's family. 2. Acute diastolic heart failure: multifactorial. Continue present treatment. 3. Severe multi-region peripheral vascular disease as above. We'll continue on present treatments at this time. 4. NSTEMI: Peaked trop at 44. EF at 50% with possible mild hypokinesis in the distal septal wall. Continuing medical treatment at this time. 5. PAFIB; mainly SR, but having short bursts of AFIB 6. History of CVA. 7. NAGELICA; hemodialysis as per the renal service. 8. Metabolic encephalopathy 9. Accelerated HTN; labile Comment Review of Relevant I have reviewed the following items pat (where applicable) has been applied. Labs Laboratory Tests Test 02/14/18 12:44 02/15/18 05:40 02/16/18 05:30 02/16/18 09:40 White Blood Count 10.3 x10^3/uL (4.0-11.0) 13.9 x10^3/uL (4.0-11.0) 13.3 x10^3/uL (4.0-11.0) Red Blood Count 2.48 x10^6/uL (3.50-5.40) 2.57 x10^6/uL (3.50-5.40) 2.74 x10^6/uL (3.50-5.40) Hemoglobin 7.7 g/dL (12.0-15.5) 7.9 g/dL (12.0-15.5) 8.3 g/dL (12.0-15.5) Hematocrit 22.2 % (36.0-47.0) 23.0 % (36.0-47.0) 24.5 % (36.0-47.0) Mean Corpuscular Volume 89 fL (79-100) 90 fL (79-100) 90 fL (79-100) Mean Corpuscular Hemoglobin 31 pg (25-35) 31 pg (25-35) 30 pg (25-35) Mean Corpuscular Hemoglobin Concent 35 g/dL (31-37) 34 g/dL (31-37) 34 g/dL (31-37) Red Cell Distribution Width 16.8 % (11.5-14.5) 17.2 % (11.5-14.5) 16.2 % (11.5-14.5) Platelet Count 127 x10^3/uL (140-400) 223 x10^3/uL (140-400) 336 x10^3/uL (140-400) Neutrophils (%) (Auto) 95 % (31-73) 95 % (31-73) Lymphocytes (%) (Auto) 3 % (24-48) 3 % (24-48) Monocytes (%) (Auto) 2 % (0-9) 2 % (0-9) Eosinophils (%) (Auto) 0 % (0-3) 0 % (0-3) Basophils (%) (Auto) 0 % (0-3) 0 % (0-3) Neutrophils # (Auto) 13.2 x10^3uL (1.8-7.7) 12.6 x10^3uL (1.8-7.7) Lymphocytes # (Auto) 0.4 x10^3/uL (1.0-4.8) 0.4 x10^3/uL (1.0-4.8) Monocytes # (Auto) 0.2 x10^3/uL (0.0-1.1) 0.3 x10^3/uL (0.0-1.1) Eosinophils # (Auto) 0.0 x10^3/uL (0.0-0.7) 0.0 x10^3/uL (0.0-0.7) Basophils # (Auto) 0.0 x10^3/uL (0.0-0.2) 0.0 x10^3/uL (0.0-0.2) Sodium Level 139 mmol/L (136-145) 138 mmol/L (136-145) Potassium Level 4.6 mmol/L (3.5-5.1) 4.8 mmol/L (3.5-5.1) Chloride Level 102 mmol/L (98-107) 101 mmol/L (98-107) Carbon Dioxide Level 26 mmol/L (21-32) 24 mmol/L (21-32) Anion Gap 11 (6-14) 13 (6-14) Blood Urea Nitrogen 74 mg/dL (7-20) 100 mg/dL (7-20) Creatinine 3.7 mg/dL (0.6-1.0) 5.0 mg/dL (0.6-1.0) Estimated GFR (Cockcroft-Gault) 12.3 8.7 Glucose Level 149 mg/dL (70-99) 230 mg/dL (70-99) Calcium Level 7.6 mg/dL (8.5-10.1) 7.3 mg/dL (8.5-10.1) Magnesium Level 2.7 mg/dL (1.8-2.4) BUN/Creatinine Ratio 20 (6-20) Total Bilirubin 0.2 mg/dL (0.2-1.0) Aspartate Amino Transf (AST/SGOT) 109 U/L (15-37) Alanine Aminotransferase (ALT/SGPT) 64 U/L (14-59) Alkaline Phosphatase 182 U/L (46-116) Total Protein 4.6 g/dL (6.4-8.2) Albumin 1.4 g/dL (3.4-5.0) Albumin/Globulin Ratio 0.4 (1.0-1.7) O2 Saturation 93 % (92-99) Arterial Blood pH 7.46 (7.35-7.45) Arterial Blood pCO2 at Patient Temp 32 mmHg (35-46) Arterial Blood pO2 at Patient Temp 71 mmHg (65-108) Arterial Blood HCO3 22 mmol/L (21-28) Arterial Blood Base Excess -1 mmol/L (-3-3) FiO2 50 Laboratory Tests Test 02/16/18 05:30 02/16/18 09:40 White Blood Count 13.3 x10^3/uL (4.0-11.0) Red Blood Count 2.74 x10^6/uL (3.50-5.40) Hemoglobin 8.3 g/dL (12.0-15.5) Hematocrit 24.5 % (36.0-47.0) Mean Corpuscular Volume 90 fL (79-100) Mean Corpuscular Hemoglobin 30 pg (25-35) Mean Corpuscular Hemoglobin Concent 34 g/dL (31-37) Red Cell Distribution Width 16.2 % (11.5-14.5) Platelet Count 336 x10^3/uL (140-400) Neutrophils (%) (Auto) 95 % (31-73) Lymphocytes (%) (Auto) 3 % (24-48) Monocytes (%) (Auto) 2 % (0-9) Eosinophils (%) (Auto) 0 % (0-3) Basophils (%) (Auto) 0 % (0-3) Neutrophils # (Auto) 12.6 x10^3uL (1.8-7.7) Lymphocytes # (Auto) 0.4 x10^3/uL (1.0-4.8) Monocytes # (Auto) 0.3 x10^3/uL (0.0-1.1) Eosinophils # (Auto) 0.0 x10^3/uL (0.0-0.7) Basophils # (Auto) 0.0 x10^3/uL (0.0-0.2) Sodium Level 138 mmol/L (136-145) Potassium Level 4.8 mmol/L (3.5-5.1) Chloride Level 101 mmol/L (98-107) Carbon Dioxide Level 24 mmol/L (21-32) Anion Gap 13 (6-14) Blood Urea Nitrogen 100 mg/dL (7-20) Creatinine 5.0 mg/dL (0.6-1.0) Estimated GFR (Cockcroft-Gault) 8.7 BUN/Creatinine Ratio 20 (6-20) Glucose Level 230 mg/dL (70-99) Calcium Level 7.3 mg/dL (8.5-10.1) Total Bilirubin 0.2 mg/dL (0.2-1.0) Aspartate Amino Transf (AST/SGOT) 109 U/L (15-37) Alanine Aminotransferase (ALT/SGPT) 64 U/L (14-59) Alkaline Phosphatase 182 U/L (46-116) Total Protein 4.6 g/dL (6.4-8.2) Albumin 1.4 g/dL (3.4-5.0) Albumin/Globulin Ratio 0.4 (1.0-1.7) O2 Saturation 93 % (92-99) Arterial Blood pH 7.46 (7.35-7.45) Arterial Blood pCO2 at Patient Temp 32 mmHg (35-46) Arterial Blood pO2 at Patient Temp 71 mmHg (65-108) Arterial Blood HCO3 22 mmol/L (21-28) Arterial Blood Base Excess -1 mmol/L (-3-3) FiO2 50 Microbiology 02/12/18 Blood Culture - Preliminary, Resulted NO GROWTH AFTER 3 DAYS 02/10/18 - Final, Complete 02/10/18 - Final, Complete 02/10/18 - Final, Complete 02/10/18 Gram Stain Evaluation - Final, Complete 02/10/18 Sputum Culture - Final, Complete 02/10/18 Sputum Result 1 - Final, Complete 02/13/18 Urine Culture - Final, Complete 02/13/18 Urine Culture Result 1 (JESSICA) - Final, Complete Medications Current Medications Albuterol/ Ipratropium (Duoneb) 3 ml 1X ONCE NEB Last administered on at 17:14; Start 02/08/18 at 16:00; Stop 02/08/18 at 16:01; Status DC Vancomycin HCl (Vanco Per Pharmacy) 1 each PRN DAILY PRN MC SEE COMMENTS Last administered on 02/09/18at 08:59; Start 02/08/18 at 16:15; Stop 02/10/18 at 09 :07; Status DC Piperacillin Sod/ Tazobactam Sod (Zosyn Per Pharmacy) 1 each PRN DAILY PRN MC SEE COMMENTS; Start 02/08/18 at 16:15; Stop 02/12/18 at 07:24; Status DC Vancomycin HCl 1.75 gm/Sodium Chloride 500 ml @ 250 mls/hr 1X ONCE IV Last administered on 02/08/18at 16:36; Start 02/08/18 at 17:00; Stop 02/08/18 at 18 :59; Status DC Piperacillin Sod/ Tazobactam Sod 3.375 gm/Sodium Chloride 50 ml @ 100 mls/hr 1X ONCE IV Last administered on 02/08/18at 16:36; Start 02/08/18 at 16:30; Stop 02/08/18 at 16:59; Status DC Furosemide (Lasix) 20 mg 1X ONCE IVP Last administered on 02/08/18at 16:36; Start 02/08/18 at 16:30; Stop 02/08/18 at 16:31; Status DC Aspirin (Children'S Aspirin) 324 mg 1X ONCE PO Last administered on at 16:36; Start 02/08/18 at 16:30; Stop 02/08/18 at 16:31; Status DC Furosemide (Lasix) 20 mg 1X ONCE IVP Last administered on 02/08/18at 18:07; Start 02/08/18 at 17:00; Stop 02/08/18 at 17:01; Status DC Ondansetron HCl (Zofran) 4 mg 1X ONCE IV Last administered on 02/08/18at 17:00 ; Start 02/08/18 at 17:00; Stop 02/08/18 at 17:01; Status DC Ondansetron HCl (Zofran) 4 mg STK-MED ONCE .ROUTE ; Start 02/08/18 at 16:51; Stop 02/08/18 at 16:52; Status DC Heparin Sodium/ Dextrose 500 ml @ 0 mls/hr CONT PRN IV SEE I/O RECORD; Start 02/08/18 at 17:30; Status UNV Info (Anti-Coagulation Monitoring By Pharmacy) 1 each PRN DAILY PRN MC SEE COMMENTS Last administered on 02/11/18at 12:25; Start 02/08/18 at 17:30; Stop 02/13/18 at 09:17; Status DC Heparin Sodium/ Dextrose 500 ml @ 0 mls/hr CONT PRN IV SEE I/O RECORD Last administered on 02/12/18at 19:46; Start 02/08/18 at 17:30; Stop 02/13/18 at 08 :22; Status DC Heparin Sodium (Porcine) (Heparin Sodium) 1,800 unit PRN Q6HRS PRN IV FOR UFH LEVEL LESS THAN 0.2 Last administered on 02/08/18at 20:10; Start 02/08/18 at 17 :30; Stop 02/13/18 at 08:22; Status DC Ondansetron HCl (Zofran) 4 mg 1X PRN PRN IV NAUSEA/VOMITING; Start 02/08/18 at 18:00; Stop 02/09/18 at 09:06; Status DC Piperacillin Sod/ Tazobactam Sod 3.375 gm/Sodium Chloride 50 ml @ 100 mls/hr Q6HRS IV Last administered on 02/11/18at 05:37; Start 02/09/18 at 00:00; Stop 02/11/18 at 07:14; Status DC Vancomycin HCl 1 gm/Sodium Chloride 250 ml @ 250 mls/hr Q24H IV Last administered on 02/09/18at 16:30; Start 02/09/18 at 16:30; Stop 02/10/18 at 09 :07; Status DC Vancomycin HCl (Vancomycin Trough Level) 1 each 1X ONCE MC ; Start 02/10/18 at 16:00; Stop 02/10/18 at 16:00; Status DC Magnesium Sulfate/ Dextrose 100 ml @ 25 mls/hr 1X ONCE IV Last administered on 02/08/18at 22:03; Start 02/08/18 at 22:00; Stop 02/09/18 at 01:59; Status DC Aspirin (Radha Aspirin) 325 mg DAILY PO ; Start 02/09/18 at 09:00; Stop at 10:16; Status DC Atorvastatin Calcium (Lipitor) 10 mg HS PO ; Start 02/09/18 at 21:00; Stop at 21:00; Status DC Clonidine HCl (Catapres) 0.1 mg QHS PO Last administered on 02/08/18at 22:05; Start 02/08/18 at 22:00; Stop 02/09/18 at 10:16; Status DC Docusate Sodium (Colace) 100 mg BID PO ; Start 02/09/18 at 09:00; Stop at 10:16; Status DC Gabapentin (Neurontin) 300 mg TID PO Last administered on 02/08/18at 22:08; Start 02/08/18 at 22:20; Stop 02/09/18 at 10:16; Status DC Labetalol HCl (Normodyne Iv Push) 10 mg PRN Q2HR PRN IVP HYPERTENSION, SEE COMMENTS Last administered on 02/12/18at 15:12; Start 02/08/18 at 21:30; Stop 02/12/18 at 16:22; Status DC Lorazepam (Ativan) 1 mg PRN Q4HRS PRN IV ANXIETY / AGITATION Last administered on 02/15/18at 04:02; Start 02/08/18 at 21:30 Morphine Sulfate (Morphine Sulfate) 4 mg PRN Q4HRS PRN IV PAIN Last administered on 02/09/18at 19:45; Start 02/08/18 at 21:30 Acetaminophen (Tylenol Supp) 325 mg PRN Q6HRS PRN NM MILD PAIN / TEMP Last administered on 02/09/18at 09:30; Start 02/09/18 at 06:45 Ipratropium Bend (Atrovent) 0.5 mg RTQID NEB Last administered on at 09:40; Start 02/09/18 at 08:00 Budesonide (Pulmicort) 0.5 mg RTBID NEB Last administered on 02/16/18at 09:40; Start 02/09/18 at 08:00 Famotidine (Pepcid Vial) 20 mg QHS IVP Last administered on 02/12/18at 21:56; Start 02/09/18 at 21:00; Stop 02/13/18 at 14:47; Status DC Acetaminophen (Tylenol) 500 mg PRN Q6HRS PRN PO FEVER/KUO Last administered on 02/14/18at 17:23; Start 02/09/18 at 09:00 Ondansetron HCl (Zofran) 4 mg PRN Q6HRS PRN IV NAUSEA/VOMITING; Start at 09:00 Ondansetron HCl (Zofran Odt) 4 mg PRN Q6HRS PRN PO NAUSEA/VOMITING; Start at 09:00 Acetaminophen/ Hydrocodone Bitart (Lortab 10/325) 1 tab PRN Q4HRS PRN PO MODERATE PAIN; Start 02/09/18 at 09:00 Magnesium Hydroxide (Milk Of Magnesia) 400 mg DAILY PO Last administered on at 08:31; Start 02/09/18 at 09:00 Oxycodone HCl (OxyCONTIN) 10 mg BID PO ; Start 02/09/18 at 09:00; Stop at 10:16; Status DC Oxycodone/ Acetaminophen (Percocet 5/325) 1 tab BID PO ; Start 02/09/18 at 09: 00; Stop 02/09/18 at 10:16; Status DC Tramadol HCl (Ultram) 50 mg PRN DAILY PRN PO MILD PAIN; Start 02/09/18 at 09: 00 Non-Formulary Medication (Acetaminophen ) 1 tab BID PO ; Start 02/09/18 at 09: 00; Stop 02/09/18 at 09:12; Status DC Non-Formulary Medication (Albuterol Sulfate (Albuterol Sulfate Neb Soln)) 1 vial QID NEB ; Start 02/09/18 at 09:00; Stop 02/09/18 at 09:22; Status DC Citalopram Hydrobromide (CeleXA) 40 mg QHS PO ; Start 02/09/18 at 21:00; Stop 02/09/18 at 21:00; Status DC Hydrochlorothiazide (Microzide) 12.5 mg QHS PO ; Start 02/09/18 at 21:00; Stop 02/09/18 at 21:00; Status DC Non-Formulary Medication (Magnesium Oxide ) 1 tab DAILY PO ; Start 02/09/18 at 09:00; Stop 02/09/18 at 09:14; Status DC Non-Formulary Medication (Multivitamin (Multivitamins)) 1 tab DAILY PO ; Start 02/09/18 at 09:00; Stop 02/09/18 at 09:14; Status DC Nicotine (Nicoderm Cq 14mg) 1 patch DAILY TD Last administered on 02/14/18at 08 :08; Start 02/09/18 at 10:00 Ondansetron HCl (Zofran Odt) 4 mg Q6HRS PO Last administered on 02/14/18at 05: 52; Start 02/09/18 at 12:00; Stop 02/14/18 at 15:05; Status DC Non-Formulary Medication (Polyethylene Glycol 3350 (Miralax)) 1 packet DAILY PO ; Start 02/09/18 at 09:00; Stop 02/09/18 at 09:17; Status DC Quetiapine Fumarate (SEROquel) 25 mg QHS PO ; Start 02/09/18 at 21:00; Stop at 21:00; Status DC Labetalol HCl (Normodyne Iv Push) 10 mg PRN Q2HR PRN IVP HYPERTENSION, SEE COMMENTS; Start 02/09/18 at 09:00; Stop 02/09/18 at 09:06; Status DC Acetaminophen (Tylenol) 500 mg BID PO ; Start 02/09/18 at 10:00; Stop at 10:16; Status DC Magnesium Oxide (Magnesium Oxide) 400 mg DAILY PO Last administered on at 09:25; Start 02/09/18 at 10:00 Multivitamins (Thera M Plus) 1 tab DAILY PO ; Start 02/09/18 at 10:00; Stop at 10:16; Status DC Polyethylene Glycol (miraLAX PACKET) 17 gm DAILY PO ; Start 02/09/18 at 10:00; Stop 02/09/18 at 10:16; Status DC Albuterol Sulfate (Ventolin Neb Soln) 2.5 mg RTQID NEB Last administered on at 10:45; Start 02/09/18 at 12:00; Stop 02/15/18 at 18:59; Status DC Furosemide (Lasix) 60 mg 1X ONCE IVP Last administered on 02/09/18at 20:16; Start 02/09/18 at 20:00; Stop 02/09/18 at 20:01; Status DC Rocuronium Bend (Zemuron) 50 mg STK-MED ONCE .ROUTE ; Start 02/09/18 at 20: 23; Stop 02/09/18 at 20:24; Status DC Fentanyl Citrate 30 ml @ 0 mls/hr CONT PRN IV SEE PROTOCOL Last administered on 02/15/18at 19:26; Start 02/09/18 at 20:30 Propofol 100 ml @ 0 mls/hr CONT PRN IV SEE PROTOCOL Last administered on at 14:09; Start 02/09/18 at 20:30 Midazolam HCl 100 ml @ 5 mls/hr CONT PRN IV SEE I/O RECORD Last administered on 02/12/18at 03:38; Start 02/09/18 at 22:00; Stop 02/13/18 at 17:22; Status DC Norepinephrine Bitartrate 250 ml @ As Directed STK-MED ONCE IV ; Start at 02:33; Stop 02/10/18 at 02:35; Status DC Norepinephrine Bitartrate 250 ml @ 1.875 mls/ hr CONT PRN IV SEE I/O RECORD Last administered on 02/14/18at 15:02; Start 02/10/18 at 02:45 Methylprednisolone Sodium Succinate (SOLU-Medrol 40MG VIAL) 40 mg Q12HR IV Last administered on 02/16/18at 09:26; Start 02/10/18 at 09:00 Piperacillin Sod/ Tazobactam Sod 2.25 gm/Sodium Chloride 50 ml @ 100 mls/hr Q6HRS IV Last administered on 02/12/18at 05:47; Start 02/11/18 at 12:00; Stop 02/12/18 at 07:24; Status DC Propofol (Diprivan) 200 mg STK-MED ONCE IV ; Start 02/09/18 at 07:00; Stop at 07:43; Status DC Succinylcholine Chloride (Anectine) 200 mg STK-MED ONCE .ROUTE ; Start at 07:00; Stop 02/11/18 at 07:43; Status DC Phenylephrine HCl (PHENYLEPHRINE in 0.9% NACL PF) 1 mg STK-MED ONCE IV ; Start 02/09/18 at 07:00; Stop 02/11/18 at 07:43; Status DC Ephedrine Sulfate (ePHEDrine PF IN SALINE SYRINGE) 50 mg STK-MED ONCE IV ; Start 02/09/18 at 07:00; Stop 02/11/18 at 07:43; Status DC Rocuronium Bend (Zemuron) 50 mg STK-MED ONCE .ROUTE ; Start 02/09/18 at 21: 00; Stop 02/11/18 at 08:22; Status DC Linezolid/Dextrose 300 ml @ 300 mls/hr Q12HR IV Last administered on at 08:32; Start 02/12/18 at 09:00; Stop 02/15/18 at 10:31; Status DC Micafungin Sodium 100 mg/Dextrose 100 ml @ 100 mls/hr Q24H IV Last administered on 02/15/18at 08:34; Start 02/12/18 at 10:00; Stop 02/15/18 at 10 :31; Status DC Cefepime HCl (Maxipime) 1 gm Q12HR IVP Last administered on 02/13/18at 08:19; Start 02/12/18 at 09:00; Stop 02/13/18 at 10:56; Status DC Atorvastatin Calcium (Lipitor) 10 mg QHS PO Last administered on 02/15/18at 20: 59; Start 02/12/18 at 21:00 Labetalol HCl (Normodyne Iv Push) 20 mg PRN Q2HR PRN IVP HYPERTENSION, SEE COMMENTS Last administered on 02/13/18at 05:34; Start 02/12/18 at 16:15 Aspirin (Children'S Aspirin) 81 mg DAILYWBKFT PO Last administered on at 09:25; Start 02/12/18 at 16:15 Metoprolol Tartrate (Lopressor) 25 mg BID PO Last administered on 02/16/18at 09 :24; Start 02/13/18 at 11:00 Cefepime HCl (Maxipime) 1 gm QHS IVP ; Start 02/13/18 at 21:00; Stop 02/13/18 at 21:00; Status DC Lidocaine/Sodium Bicarbonate (Buffered Lidocaine 1%) 3 ml STK-MED ONCE .ROUTE ; Start 02/13/18 at 13:32; Stop 02/13/18 at 13:33; Status DC Heparin Sodium (Porcine) (Heparin Sodium) 10,000 unit STK-MED ONCE .ROUTE ; Start 02/13/18 at 13:32; Stop 02/13/18 at 13:33; Status DC Midazolam HCl (Versed) 5 mg STK-MED ONCE .ROUTE ; Start 02/13/18 at 14:04; Stop 02/13/18 at 14:05; Status DC Midazolam HCl (Versed) 5 mg 1X ONCE IV Last administered on 02/13/18at 14:10; Start 02/13/18 at 14:15; Stop 02/13/18 at 14:16; Status DC Lidocaine/Sodium Bicarbonate (Buffered Lidocaine 1%) 4 ml 1X ONCE INJ Last administered on 02/13/18at 14:57; Start 02/13/18 at 14:45; Stop 02/13/18 at 14 :52; Status DC Heparin Sodium (Porcine) (Heparin Sodium) 2,200 unit 1X ONCE INT CAT Last administered on 02/13/18at 15:02; Start 02/13/18 at 14:45; Stop 02/13/18 at 14 :52; Status DC Pantoprazole Sodium (PROTONIX VIAL for IV PUSH) 40 mg BIDAC IVP Last administered on 02/16/18at 09:26; Start 02/13/18 at 16:30 Heparin Sodium (Porcine) (Heparin Sodium) 2,500 unit 1X ONCE INT CAT ; Start 02/13/18 at 15:00; Stop 02/13/18 at 15:03; Status DC Meropenem 500 mg/ Sodium Chloride 50 ml @ 100 mls/hr Q24H IV Last administered on 02/15/18at 16:50; Start 02/13/18 at 16:00 Midazolam HCl 100 ml @ 5 mls/hr CONT PRN IV SEE I/O RECORD Last administered on 02/15/18at 05:58; Start 02/13/18 at 15:15 Midazolam HCl (Versed) 5 mg STK-MED ONCE .ROUTE ; Start 02/13/18 at 15:15; Stop 02/13/18 at 15:16; Status DC Clopidogrel Bisulfate (Plavix) 75 mg DAILYWBKFT PO Last administered on at 09:25; Start 02/13/18 at 16:00 Sodium Chloride 1,000 ml @ 1,000 mls/hr Q1H PRN IV hypotension; Start at 19:27; Stop 02/14/18 at 01:26; Status DC Albumin Human 200 ml @ 200 mls/hr 1X PRN PRN IV Hypotension; Start 02/13/18 at 19:30; Stop 02/14/18 at 01:29; Status DC Sodium Chloride 1,000 ml @ 400 mls/hr Q2H30M PRN IV PATENCY; Start 02/13/18 at 19:27; Stop 02/14/18 at 07:26; Status DC Info (PHARMACY MONITORING -- do not chart) 1 each PRN DAILY PRN MC SEE COMMENTS ; Start 02/13/18 at 19:30 Info (PHARMACY MONITORING -- do not chart) 1 each PRN DAILY PRN MC SEE COMMENTS ; Start 02/13/18 at 19:30; Status UNV Sodium Chloride 1,000 ml @ 1,000 mls/hr Q1H PRN IV hypotension; Start at 08:16; Stop 02/14/18 at 14:15; Status DC Sodium Chloride 1,000 ml @ 400 mls/hr Q2H30M PRN IV PATENCY; Start 02/14/18 at 08:16; Stop 02/14/18 at 20:15; Status DC Info (PHARMACY MONITORING -- do not chart) 1 each PRN DAILY PRN MC SEE COMMENTS ; Start 02/14/18 at 08:30; Status UNV Midazolam HCl (Versed) 5 mg STK-MED ONCE .ROUTE ; Start 02/13/18 at 15:30; Stop 02/14/18 at 09:00; Status DC Albuterol Sulfate (Ventolin Neb Soln) 2.5 mg PRN Q4HRS PRN NEB SHORTNESS OF BREATH; Start 02/15/18 at 19:00 Active Scripts Active Percocet 5-325 Mg Tablet (Oxycodone/Acetaminophen) 1 Each Tablet 1 Tab PO BID 3 Days Reported Zofran (Ondansetron Hcl) 4 Mg Tablet 1 Tab PO Q6HRS Milk Of Magnesia (Magnesium Hydroxide) 400 Mg/5 Ml Oral.susp 400 Mg PO Acetaminophen 500 Mg Tablet 1 Tab PO BID Clonidine Hcl 0.1 Mg Tablet 1 Tab PO QHS Tramadol Hcl 50 Mg Tablet 50 Mg PO DAILY PRN Hydralazine Hcl 20 Mg/1 Ml Vial 20 Mg IJ Gabapentin (Gabapentin) 300 Mg Capsule 300 Mg PO TID Acidophilus (Lactobacillus Acidophilus) 1 Each Capsule 1 Each PO Atorvastatin Calcium 10 Mg Tablet 1 Tab PO DAILY Vitamin C (Ascorbic Acid) 500 Mg Tablet.er 500 Mg PO Aspirin 325 Mg Tablet 1 Tab PO DAILY Colace (Docusate Sodium) 100 Mg Capsule 1 Cap PO BID Magnesium Oxide 400 Mg Tablet 1 Tab PO DAILY Multivitamins (Multivitamin) 1 Each Tablet 1 Tab PO DAILY NICODERM CQ 14mg (Nicotine) 1 Each Patch.td24 1 Patch TP DAILY Miralax (Polyethylene Glycol 3350) 17 Gm Powd.pack 1 Packet PO DAILY Albuterol Sulfate Neb Soln (Albuterol Sulfate) 0.63 Mg/3 Ml Vial.neb 1 Vial NEB QID Prednisone 20 Mg Tablet 1 Tab PO DAILY Seroquel (Quetiapine Fumarate) 25 Mg Tablet 1 Tab PO QHS Hydrochlorothiazide Tablet (Hydrochlorothiazide) 12.5 Mg Tablet 1 Tab PO QHS Lexapro (Escitalopram Oxalate) 20 Mg Tablet 1 Tab PO QHS Hydrocodone-Apap 10-325 (Hydrocodone Bit/Acetaminophen) 1 Each Tablet 1 Tab PO PRN Q4HRS Oxycontin (Oxycodone HCl) 10 Mg Tab.er.12h 10 Mg PO BID Vitals/I & O Vital Sign - Last 24 Hours 02/15/18 02/15/18 02/15/18 02/15/18 12:10 13:00 13:07 14:00 Temp 100.7 100.7 Pulse 107 100 98 Resp 29 B/P (MAP) 147/71 93/55 (68) 99/56 (70) Pulse Ox 92 96 92 O2 Delivery Ventilator Ventilator Ventilator 02/15/18 02/15/18 02/15/18 02/15/18 15:00 16:00 16:00 16:00 Temp 99.8 99.8 Pulse 98 100 Resp B/P (MAP) 86/49 (61) 90/52 (65) Pulse Ox 92 96 92 O2 Delivery Ventilator Mechanical Ventilator Ventilator Ventilator 02/15/18 02/15/18 02/15/18 02/15/18 17:00 18:00 18:19 19:00 Pulse 97 111 110 Resp B/P (MAP) 110/62 (78) 107/68 (81) 149/77 (101) Pulse Ox 92 92 97 97 O2 Delivery Ventilator Ventilator Ventilator Ventilator 02/15/18 02/15/18 02/15/18 02/15/18 19:51 20:00 20:00 21:00 Temp 99.8 99.8 Pulse 112 87 Resp 22 B/P (MAP) 163/77 (105) 123/66 (85) Pulse Ox 96 97 97 O2 Delivery Ventilator Mechanical Ventilator Ventilator Ventilator 02/15/18 02/15/18 02/15/18 02/15/18 21:03 22:00 23:00 23:09 Pulse 111 88 86 Resp 22 B/P (MAP) 150/69 137/70 (92) 103/56 (72) Pulse Ox 97 97 97 O2 Delivery Ventilator Ventilator Ventilator 02/16/18 02/16/18 02/16/18 02/16/18 00:00 00:00 01:00 01:27 Temp 99.2 99.2 Pulse 92 103 Resp 22 25 B/P (MAP) 109/61 (77) 102/60 (74) Pulse Ox 97 97 93 O2 Delivery Mechanical Ventilator Ventilator Ventilator Ventilator 02/16/18 02/16/18 02/16/18 02/16/18 02:00 03:00 04:00 04:00 Temp 98.0 98.0 Pulse 103 93 106 Resp 25 25 25 B/P (MAP) 97/57 (70) 142/75 (97) 145/73 (97) Pulse Ox 94 94 93 O2 Delivery Ventilator Ventilator Ventilator Mechanical Ventilator 02/16/18 02/16/18 02/16/18 02/16/18 04:00 05:00 06:00 06:15 Pulse 103 103 Resp 21 20 B/P (MAP) 176/80 (112) 95/65 (75) Pulse Ox 93 94 95 93 O2 Delivery Ventilator Ventilator Ventilator Ventilator 02/16/18 02/16/18 02/16/18 07:20 09:24 09:40 Pulse 113 B/P (MAP) 178/89 Pulse Ox 98 97 O2 Delivery Ventilator Ventilator Intake and Output 02/15/18 02/15/18 02/16/18 15:01 23:01 07:01 Intake Total 750 ml 930 ml 792 ml Output Total 40 ml 75 ml 75 ml Balance 710 ml 855 ml 717 ml Nutrition Consultation Dietary Evaluation: Recommendations by RD: Increase Calorie Intake Comments: Continue TF per current order: Jevity 1.5@goal rate 45 ml/hr w/150 ml water flushes q4 hrs or flushes per MD Expected Outcomes/Goals: TF for nutrition needs while pt remains intubated - met, goal ongoing Interpretation of weight loss: >10% in 6 months Malnutrition Findings: Body Fat Depletion (Non Severe: Mild Depletion Weight Status: Appropriate ALEX RUDOLPH MD Feb 16, 2018 12:12
[2018-02-16] MEDS ORDERED: DIALYSIS PATIENT. MC PRN ×2 (12:45)
--- NOTE | 2018-02-16 13:16 | PDOC ---
PULMONARY PROGRESS NOTES Subjective NOT RESPONDING TO STERNAL RUB ON AC NOT IN SYNCH WITH VENT ON HD Vitals Vital Signs Date Time Temp Pulse Resp B/P (MAP) Pulse Ox O2 Delivery O2 Flow Rate FiO2 02/16/18 12:49 93 Ventilator 02/16/18 09:24 113 178/89 02/16/18 06:00 20 02/16/18 04:00 98.0 98.0 Lungs: Crackles Cardiovascular: S1, S2 Abdomen: Soft, Non-tender Extremities: No Edema Labs Laboratory Tests Test 02/15/18 05:40 02/16/18 05:30 02/16/18 09:40 White Blood Count 13.9 x10^3/uL (4.0-11.0) 13.3 x10^3/uL (4.0-11.0) Red Blood Count 2.57 x10^6/uL (3.50-5.40) 2.74 x10^6/uL (3.50-5.40) Hemoglobin 7.9 g/dL (12.0-15.5) 8.3 g/dL (12.0-15.5) Hematocrit 23.0 % (36.0-47.0) 24.5 % (36.0-47.0) Mean Corpuscular Volume 90 fL (79-100) 90 fL (79-100) Mean Corpuscular Hemoglobin 31 pg (25-35) 30 pg (25-35) Mean Corpuscular Hemoglobin Concent 34 g/dL (31-37) 34 g/dL (31-37) Red Cell Distribution Width 17.2 % (11.5-14.5) 16.2 % (11.5-14.5) Platelet Count 223 x10^3/uL (140-400) 336 x10^3/uL (140-400) Neutrophils (%) (Auto) 95 % (31-73) 95 % (31-73) Lymphocytes (%) (Auto) 3 % (24-48) 3 % (24-48) Monocytes (%) (Auto) 2 % (0-9) 2 % (0-9) Eosinophils (%) (Auto) 0 % (0-3) 0 % (0-3) Basophils (%) (Auto) 0 % (0-3) 0 % (0-3) Neutrophils # (Auto) 13.2 x10^3uL (1.8-7.7) 12.6 x10^3uL (1.8-7.7) Lymphocytes # (Auto) 0.4 x10^3/uL (1.0-4.8) 0.4 x10^3/uL (1.0-4.8) Monocytes # (Auto) 0.2 x10^3/uL (0.0-1.1) 0.3 x10^3/uL (0.0-1.1) Eosinophils # (Auto) 0.0 x10^3/uL (0.0-0.7) 0.0 x10^3/uL (0.0-0.7) Basophils # (Auto) 0.0 x10^3/uL (0.0-0.2) 0.0 x10^3/uL (0.0-0.2) Sodium Level 139 mmol/L (136-145) 138 mmol/L (136-145) Potassium Level 4.6 mmol/L (3.5-5.1) 4.8 mmol/L (3.5-5.1) Chloride Level 102 mmol/L (98-107) 101 mmol/L (98-107) Carbon Dioxide Level 26 mmol/L (21-32) 24 mmol/L (21-32) Anion Gap 11 (6-14) 13 (6-14) Blood Urea Nitrogen 74 mg/dL (7-20) 100 mg/dL (7-20) Creatinine 3.7 mg/dL (0.6-1.0) 5.0 mg/dL (0.6-1.0) Estimated GFR (Cockcroft-Gault) 12.3 8.7 Glucose Level 149 mg/dL (70-99) 230 mg/dL (70-99) Calcium Level 7.6 mg/dL (8.5-10.1) 7.3 mg/dL (8.5-10.1) Magnesium Level 2.7 mg/dL (1.8-2.4) BUN/Creatinine Ratio 20 (6-20) Total Bilirubin 0.2 mg/dL (0.2-1.0) Aspartate Amino Transf (AST/SGOT) 109 U/L (15-37) Alanine Aminotransferase (ALT/SGPT) 64 U/L (14-59) Alkaline Phosphatase 182 U/L (46-116) Total Protein 4.6 g/dL (6.4-8.2) Albumin 1.4 g/dL (3.4-5.0) Albumin/Globulin Ratio 0.4 (1.0-1.7) O2 Saturation 93 % (92-99) Arterial Blood pH 7.46 (7.35-7.45) Arterial Blood pCO2 at Patient Temp 32 mmHg (35-46) Arterial Blood pO2 at Patient Temp 71 mmHg (65-108) Arterial Blood HCO3 22 mmol/L (21-28) Arterial Blood Base Excess -1 mmol/L (-3-3) FiO2 50 Laboratory Tests Test 02/16/18 05:30 02/16/18 09:40 White Blood Count 13.3 x10^3/uL (4.0-11.0) Red Blood Count 2.74 x10^6/uL (3.50-5.40) Hemoglobin 8.3 g/dL (12.0-15.5) Hematocrit 24.5 % (36.0-47.0) Mean Corpuscular Volume 90 fL (79-100) Mean Corpuscular Hemoglobin 30 pg (25-35) Mean Corpuscular Hemoglobin Concent 34 g/dL (31-37) Red Cell Distribution Width 16.2 % (11.5-14.5) Platelet Count 336 x10^3/uL (140-400) Neutrophils (%) (Auto) 95 % (31-73) Lymphocytes (%) (Auto) 3 % (24-48) Monocytes (%) (Auto) 2 % (0-9) Eosinophils (%) (Auto) 0 % (0-3) Basophils (%) (Auto) 0 % (0-3) Neutrophils # (Auto) 12.6 x10^3uL (1.8-7.7) Lymphocytes # (Auto) 0.4 x10^3/uL (1.0-4.8) Monocytes # (Auto) 0.3 x10^3/uL (0.0-1.1) Eosinophils # (Auto) 0.0 x10^3/uL (0.0-0.7) Basophils # (Auto) 0.0 x10^3/uL (0.0-0.2) Sodium Level 138 mmol/L (136-145) Potassium Level 4.8 mmol/L (3.5-5.1) Chloride Level 101 mmol/L (98-107) Carbon Dioxide Level 24 mmol/L (21-32) Anion Gap 13 (6-14) Blood Urea Nitrogen 100 mg/dL (7-20) Creatinine 5.0 mg/dL (0.6-1.0) Estimated GFR (Cockcroft-Gault) 8.7 BUN/Creatinine Ratio 20 (6-20) Glucose Level 230 mg/dL (70-99) Calcium Level 7.3 mg/dL (8.5-10.1) Total Bilirubin 0.2 mg/dL (0.2-1.0) Aspartate Amino Transf (AST/SGOT) 109 U/L (15-37) Alanine Aminotransferase (ALT/SGPT) 64 U/L (14-59) Alkaline Phosphatase 182 U/L (46-116) Total Protein 4.6 g/dL (6.4-8.2) Albumin 1.4 g/dL (3.4-5.0) Albumin/Globulin Ratio 0.4 (1.0-1.7) O2 Saturation 93 % (92-99) Arterial Blood pH 7.46 (7.35-7.45) Arterial Blood pCO2 at Patient Temp 32 mmHg (35-46) Arterial Blood pO2 at Patient Temp 71 mmHg (65-108) Arterial Blood HCO3 22 mmol/L (21-28) Arterial Blood Base Excess -1 mmol/L (-3-3) FiO2 50 Medications Active Scripts Medications Dose Route/Sig Max Daily Dose Days Date Category Zofran (Ondansetron Hcl) 4 Mg Tablet 1 Tab PO Q6HRS 09/20/17 Reported Milk Of Magnesia (Magnesium Hydroxide) 400 Mg/5 Ml Oral.susp 400 Mg PO 09/20/17 Reported Acetaminophen 500 Mg Tablet 1 Tab PO BID 09/20/17 Reported Clonidine Hcl 0.1 Mg Tablet 1 Tab PO QHS 09/20/17 Reported Tramadol Hcl 50 Mg Tablet 50 Mg PO DAILY PRN 09/20/17 Reported Hydralazine Hcl 20 Mg/1 Ml Vial 20 Mg IJ 09/20/17 Reported Gabapentin (Gabapentin) 300 Mg Capsule 300 Mg PO TID 09/20/17 Reported Acidophilus (Lactobacillus Acidophilus) 1 Each Capsule 1 Each PO 09/20/17 Reported Atorvastatin Calcium 10 Mg Tablet 1 Tab PO DAILY 09/20/17 Reported Vitamin C (Ascorbic Acid) 500 Mg Tablet.er 500 Mg PO 09/20/17 Reported Aspirin 325 Mg Tablet 1 Tab PO DAILY 09/20/17 Reported Colace (Docusate Sodium) 100 Mg Capsule 1 Cap PO BID 09/20/17 Reported Magnesium Oxide 400 Mg Tablet 1 Tab PO DAILY 09/20/17 Reported Multivitamins (Multivitamin) 1 Each Tablet 1 Tab PO DAILY 09/20/17 Reported NICODERM CQ 14mg (Nicotine) 1 Each Patch.td24 1 Patch TP DAILY 09/20/17 Reported Miralax (Polyethylene Glycol 3350) 17 Gm Powd.pack 1 Packet PO DAILY 09/20/17 Reported Albuterol Sulfate Neb Soln (Albuterol Sulfate) 0.63 Mg/3 Ml Vial.neb 1 Vial NEB QID 09/20/17 Reported Prednisone 20 Mg Tablet 1 Tab PO DAILY 09/20/17 Reported Percocet 5-325 Mg Tablet (Oxycodone/Acetaminophen) 1 Each Tablet 1 Tab PO BID 3 07/31/17 Rx Seroquel (Quetiapine Fumarate) 25 Mg Tablet 1 Tab PO QHS 10/21/16 Reported Hydrochlorothiazide Tablet (Hydrochlorothiazide) 12.5 Mg Tablet 1 Tab PO QHS 10/21/16 Reported Lexapro (Escitalopram Oxalate) 20 Mg Tablet 1 Tab PO QHS 10/21/16 Reported Hydrocodone-Apap 10-325 (Hydrocodone Bit/Acetaminophen) 1 Each Tablet 1 Tab PO PRN Q4HRS 10/21/16 Reported Oxycontin (Oxycodone HCl) 10 Mg Tab.er.12h 10 Mg PO BID 10/21/16 Reported Impression . IMPRESSION: 1. Acute hypoxemic respiratory failure secondary to acute diastolic congestive heart failure, non-ST elevation myocardial infarction/SEPSIS 2. Abnormal chest x-ray/CHF PNEUMONIA 3. Acute diastolic congestive heart failure. 4. Chronic obstructive pulmonary disease with mild acute exacerbation. 5. Acute bronchitis/ASPIRATION PNEUMONIA 6. Smoker. 7. Leukocytosis. 8. History of cerebrovascular accident. 9. hypotension 10. NSTEMI PER CARD 11. ACUTE RENAL FAILURE CXR 02/14 ET tube tip terminates approximately 4 cm above the sohan. Right IJ vascular catheter tip projects over the distal SVC. Enteric tube extends beyond the diaphragm tip is not visualized. Cardiomediastinal silhouette is stable. Left lung base parenchymal opacities are also stable. Patchy medial right lung base opacities are also grossly stable. No definite pleural effusion. No pneumothorax. Electronically signed by: Onur Valencia MD (02/13/2018 5:23 PM) [facility] Plan . FULL SUPPORT FOR NOW BETTER ON PS D/W PAT PALLIATIVE CARE I WOULD FAVOR D/C SUPPORT AND ALLOW NATURAL IT IS MY UNDERSTANDING THAT PT DID NOT WANT TO BE INTUBATED IN FIRST PLACE ANITBXN PER ID D/W DR DAVALOS FOLLOW CARD INPUT ABG AND CXR NOTED HEPARIN STARTED ON JUDE LAAMR MD Feb 16, 2018 13:16
[2018-02-16] MEDS: MEROPENEM 500 MG in IV NORMAL SALINE 50ML 50 ML IV SCH (16:26)
[2018-02-16 19:54] LABS: HEMATOCRIT 21.5 % (36.0-47.0); HEMOGLOBIN 7.5 g/dL (12.0-15.5); RED BLOOD COUNT 2.4 x10^6/uL (3.50-5.40); RED CELL DISTRIBUTION WIDTH 15.8 % (11.5-14.5); WHITE BLOOD COUNT 14.5 x10^3/uL (4.0-11.0)
[2018-02-16] MEDS: ATORVASTATIN CALCIUM 10 MG TABLET. PO SCH (20:35)
[2018-02-16] MEDS ORDERED: FUROSEMIDE 40 MG/4 ML VIAL. IVP ONE (23:45)
[2018-02-17] VITALS (32 sets, daily range): BP systolic 79–179; BP diastolic 49–102
--- NOTE | 2018-02-17 03:49 | RAD ---
AP portable chest 02/17/2018. Reason for exam: Respiratory failure. Comparison is made with a study of the previous day. The ETT, NG and right IJ central lines remain in place. Bilateral infiltrates or edema persist. There may have been slight worsening diffusely, and there is more focal opacity at the left base now obscuring the left hemidiaphragm. Heart size is normal. IMPRESSION: Worsening bilaterally, but especially in the left lower lobe. Electronically signed by: Reuben Logan Jr., MD (02/17/2018 3:46 AM) [facility]
[2018-02-17] MEDS: NOREPINEPHRIN 8MG/250ML PREMIX 250 ML IV PRN (04:35)
[2018-02-17] MEDS ORDERED: MINERAL OIL/PETROLATUM,WHITE OPHTH OINT 3.5GM TUBE. OU PRN (07:45)
[2018-02-17] MEDS: IPRATROPIUM BROMIDE 0.5 MG/2.5 ML NEBU. NEB SCH ×4 (08:00→19:52)
[2018-02-17] MEDS: BUDESONIDE 0.5 MG/2 ML NEBU. NEB SCH ×2 (08:01→19:52)
[2018-02-17] MEDS: CLOPIDOGREL BISULFATE 75 MG TABLET PO SCH (08:46)
[2018-02-17] MEDS: methylPREDNISolone SOD SUCC PF 40 MG/ML VIAL. IV SCH ×2 (08:46→19:55)
[2018-02-17] MEDS: METOPROLOL TART IMMED RELEASE 25 MG TABLET. PO SCH ×2 (08:46→21:00)
[2018-02-17] MEDS: MAGNESIUM HYDROXIDE 2,400 MG/30 ML ORAL.SUSP. PO SCH (08:46)
[2018-02-17] MEDS: PANTOPRAZOLE IV PUSH 40 MG VIAL. IVP SCH ×2 (08:46→16:28)
[2018-02-17] MEDS: MAGNESIUM OXIDE 400 MG TABLET PO SCH (08:46)
[2018-02-17] MEDS: NICOTINE 14MG PATCH. TD SCH (08:46)
[2018-02-17] MEDS: ASPIRIN CHEWABLE 81 MG TABLET. PO SCH (08:46)
--- NOTE | 2018-02-17 11:24 | PDOC ---
PULMONARY PROGRESS NOTES Subjective ON AC VENT Vitals Vital Signs Date Time Temp Pulse Resp B/P (MAP) Pulse Ox O2 Delivery O2 Flow Rate FiO2 02/17/18 11:12 93 Ventilator 02/17/18 09:25 12 02/17/18 09:00 85 104/57 (73) 02/17/18 07:00 98.1 98.1 Lungs: Crackles Cardiovascular: S1, S2 Abdomen: Soft, Non-tender Extremities: No Edema Labs Laboratory Tests Test 02/16/18 05:30 02/16/18 09:40 02/16/18 18:00 White Blood Count 13.3 x10^3/uL (4.0-11.0) 14.5 x10^3/uL (4.0-11.0) Red Blood Count 2.74 x10^6/uL (3.50-5.40) 2.40 x10^6/uL (3.50-5.40) Hemoglobin 8.3 g/dL (12.0-15.5) 7.5 g/dL (12.0-15.5) Hematocrit 24.5 % (36.0-47.0) 21.5 % (36.0-47.0) Mean Corpuscular Volume 90 fL (79-100) 90 fL (79-100) Mean Corpuscular Hemoglobin 30 pg (25-35) 31 pg (25-35) Mean Corpuscular Hemoglobin Concent 34 g/dL (31-37) 35 g/dL (31-37) Red Cell Distribution Width 16.2 % (11.5-14.5) 15.8 % (11.5-14.5) Platelet Count 336 x10^3/uL (140-400) 366 x10^3/uL (140-400) Neutrophils (%) (Auto) 95 % (31-73) Lymphocytes (%) (Auto) 3 % (24-48) Monocytes (%) (Auto) 2 % (0-9) Eosinophils (%) (Auto) 0 % (0-3) Basophils (%) (Auto) 0 % (0-3) Neutrophils # (Auto) 12.6 x10^3uL (1.8-7.7) Lymphocytes # (Auto) 0.4 x10^3/uL (1.0-4.8) Monocytes # (Auto) 0.3 x10^3/uL (0.0-1.1) Eosinophils # (Auto) 0.0 x10^3/uL (0.0-0.7) Basophils # (Auto) 0.0 x10^3/uL (0.0-0.2) Sodium Level 138 mmol/L (136-145) Potassium Level 4.8 mmol/L (3.5-5.1) Chloride Level 101 mmol/L (98-107) Carbon Dioxide Level 24 mmol/L (21-32) Anion Gap 13 (6-14) Blood Urea Nitrogen 100 mg/dL (7-20) Creatinine 5.0 mg/dL (0.6-1.0) Estimated GFR (Cockcroft-Gault) 8.7 BUN/Creatinine Ratio 20 (6-20) Glucose Level 230 mg/dL (70-99) Calcium Level 7.3 mg/dL (8.5-10.1) Total Bilirubin 0.2 mg/dL (0.2-1.0) Aspartate Amino Transf (AST/SGOT) 109 U/L (15-37) Alanine Aminotransferase (ALT/SGPT) 64 U/L (14-59) Alkaline Phosphatase 182 U/L (46-116) Total Protein 4.6 g/dL (6.4-8.2) Albumin 1.4 g/dL (3.4-5.0) Albumin/Globulin Ratio 0.4 (1.0-1.7) O2 Saturation 93 % (92-99) Arterial Blood pH 7.46 (7.35-7.45) Arterial Blood pCO2 at Patient Temp 32 mmHg (35-46) Arterial Blood pO2 at Patient Temp 71 mmHg (65-108) Arterial Blood HCO3 22 mmol/L (21-28) Arterial Blood Base Excess -1 mmol/L (-3-3) FiO2 50 Laboratory Tests Test 02/16/18 18:00 White Blood Count 14.5 x10^3/uL (4.0-11.0) Red Blood Count 2.40 x10^6/uL (3.50-5.40) Hemoglobin 7.5 g/dL (12.0-15.5) Hematocrit 21.5 % (36.0-47.0) Mean Corpuscular Volume 90 fL (79-100) Mean Corpuscular Hemoglobin 31 pg (25-35) Mean Corpuscular Hemoglobin Concent 35 g/dL (31-37) Red Cell Distribution Width 15.8 % (11.5-14.5) Platelet Count 366 x10^3/uL (140-400) Medications Active Scripts Medications Dose Route/Sig Max Daily Dose Days Date Category Zofran (Ondansetron Hcl) 4 Mg Tablet 1 Tab PO Q6HRS 09/20/17 Reported Milk Of Magnesia (Magnesium Hydroxide) 400 Mg/5 Ml Oral.susp 400 Mg PO 09/20/17 Reported Acetaminophen 500 Mg Tablet 1 Tab PO BID 09/20/17 Reported Clonidine Hcl 0.1 Mg Tablet 1 Tab PO QHS 09/20/17 Reported Tramadol Hcl 50 Mg Tablet 50 Mg PO DAILY PRN 09/20/17 Reported Hydralazine Hcl 20 Mg/1 Ml Vial 20 Mg IJ 09/20/17 Reported Gabapentin (Gabapentin) 300 Mg Capsule 300 Mg PO TID 09/20/17 Reported Acidophilus (Lactobacillus Acidophilus) 1 Each Capsule 1 Each PO 09/20/17 Reported Atorvastatin Calcium 10 Mg Tablet 1 Tab PO DAILY 09/20/17 Reported Vitamin C (Ascorbic Acid) 500 Mg Tablet.er 500 Mg PO 09/20/17 Reported Aspirin 325 Mg Tablet 1 Tab PO DAILY 09/20/17 Reported Colace (Docusate Sodium) 100 Mg Capsule 1 Cap PO BID 09/20/17 Reported Magnesium Oxide 400 Mg Tablet 1 Tab PO DAILY 09/20/17 Reported Multivitamins (Multivitamin) 1 Each Tablet 1 Tab PO DAILY 09/20/17 Reported NICODERM CQ 14mg (Nicotine) 1 Each Patch.td24 1 Patch TP DAILY 09/20/17 Reported Miralax (Polyethylene Glycol 3350) 17 Gm Powd.pack 1 Packet PO DAILY 09/20/17 Reported Albuterol Sulfate Neb Soln (Albuterol Sulfate) 0.63 Mg/3 Ml Vial.neb 1 Vial NEB QID 09/20/17 Reported Prednisone 20 Mg Tablet 1 Tab PO DAILY 09/20/17 Reported Percocet 5-325 Mg Tablet (Oxycodone/Acetaminophen) 1 Each Tablet 1 Tab PO BID 3 07/31/17 Rx Seroquel (Quetiapine Fumarate) 25 Mg Tablet 1 Tab PO QHS 10/21/16 Reported Hydrochlorothiazide Tablet (Hydrochlorothiazide) 12.5 Mg Tablet 1 Tab PO QHS 10/21/16 Reported Lexapro (Escitalopram Oxalate) 20 Mg Tablet 1 Tab PO QHS 10/21/16 Reported Hydrocodone-Apap 10-325 (Hydrocodone Bit/Acetaminophen) 1 Each Tablet 1 Tab PO PRN Q4HRS 10/21/16 Reported Oxycontin (Oxycodone HCl) 10 Mg Tab.er.12h 10 Mg PO BID 10/21/16 Reported Impression . IMPRESSION: 1. Acute hypoxemic respiratory failure secondary to acute diastolic congestive heart failure, non-ST elevation myocardial infarction/SEPSIS 2. Abnormal chest x-ray/CHF PNEUMONIA 3. Acute diastolic congestive heart failure. 4. Chronic obstructive pulmonary disease with mild acute exacerbation. 5. Acute bronchitis/ASPIRATION PNEUMONIA 6. Smoker. 7. Leukocytosis. 8. History of cerebrovascular accident. 9. hypotension 10. NSTEMI PER CARD 11. ACUTE RENAL FAILURE CXR 02/14 ET tube tip terminates approximately 4 cm above the sohan. Right IJ vascular catheter tip projects over the distal SVC. Enteric tube extends beyond the diaphragm tip is not visualized. Cardiomediastinal silhouette is stable. Left lung base parenchymal opacities are also stable. Patchy medial right lung base opacities are also grossly stable. No definite pleural effusion. No pneumothorax. Electronically signed by: Onur Valencia MD (02/13/2018 5:23 PM) [facility] Plan . WILL USE PS DURING DAY WEAN OFF PRESSORS FULL SUPPORT FOR NOW D/W PAT PALLIATIVE CARE I WOULD FAVOR D/C SUPPORT AND ALLOW NATURAL IT IS MY UNDERSTANDING THAT PT DID NOT WANT TO BE INTUBATED IN FIRST PLACE ANITBXN PER ID D/W DR DAVALOS FOLLOW CARD INPUT ABG AND CXR NOTED HEPARIN STARTED ON JUDE LAMAR MD Feb 17, 2018 11:24
[2018-02-17 11:29] LABS: BASO % 0 % (0-3); EOS % 0 % (0-3); HEMATOCRIT 21.1 % (36.0-47.0); HEMOGLOBIN 7.2 g/dL (12.0-15.5); LYMPH # 0.4 x10^3/uL (1.0-4.8); LYMPH % 3 % (24-48); MEAN CORPUSCULAR HEMOGLOBIN 31 pg (25-35); MEAN CORPUSCULAR HGB CONC 34 g/dL (31-37); MEAN CORPUSCULAR VOLUME 90 fL (79-100); MONO # 0.3 x10^3/uL (0.0-1.1); MONO % 2 % (0-9); NEUT # 13.8 x10^3uL (1.8-7.7); NEUT % 95 % (31-73); PLATELET COUNT 471 x10^3/uL (140-400); RED BLOOD COUNT 2.35 x10^6/uL (3.50-5.40); RED CELL DISTRIBUTION WIDTH 16.2 % (11.5-14.5); WHITE BLOOD COUNT 14.5 x10^3/uL (4.0-11.0)
[2018-02-17 11:39] LABS: ALBUMIN/GLOBULIN RATIO 0.6 (1.0-1.7); CALCIUM 7.3 mg/dL (8.5-10.1); CREATININE 4.3 mg/dL (0.6-1.0); GFR 10.3; POTASSIUM 4.4 mmol/L (3.5-5.1); TOTAL BILIRUBIN 0.3 mg/dL (0.2-1.0); TOTAL PROTEIN 5.5 g/dL (6.4-8.2)
--- NOTE | 2018-02-17 12:11 | PDOC ---
Renal-Progress Notes Subjective Notes Notes NONE History of Present Illness Hx of present illness STABLE Vitals Vitals Vital Signs Date Time Temp Pulse Resp B/P (MAP) Pulse Ox O2 Delivery O2 Flow Rate FiO2 02/17/18 11:12 93 Ventilator 02/17/18 09:25 12 02/17/18 09:00 85 104/57 (73) 02/17/18 07:00 98.1 98.1 Weight Weight [ ] I.O. Intake and Output Intake and Output 02/17/18 07:01 Intake Total 4291.51 ml Output Total 1145 ml Balance 3146.51 ml IV Total 93.51 ml Tube Feeding 2998 ml Other 1200 ml Output Urine Total 1145 ml Labs Labs Laboratory Tests Test 02/16/18 18:00 02/17/18 10:50 White Blood Count 14.5 x10^3/uL (4.0-11.0) 14.5 x10^3/uL (4.0-11.0) Red Blood Count 2.40 x10^6/uL (3.50-5.40) 2.35 x10^6/uL (3.50-5.40) Hemoglobin 7.5 g/dL (12.0-15.5) 7.2 g/dL (12.0-15.5) Hematocrit 21.5 % (36.0-47.0) 21.1 % (36.0-47.0) Mean Corpuscular Volume 90 fL (79-100) 90 fL (79-100) Mean Corpuscular Hemoglobin 31 pg (25-35) 31 pg (25-35) Mean Corpuscular Hemoglobin Concent 35 g/dL (31-37) 34 g/dL (31-37) Red Cell Distribution Width 15.8 % (11.5-14.5) 16.2 % (11.5-14.5) Platelet Count 366 x10^3/uL (140-400) 471 x10^3/uL (140-400) Neutrophils (%) (Auto) 95 % (31-73) Lymphocytes (%) (Auto) 3 % (24-48) Monocytes (%) (Auto) 2 % (0-9) Eosinophils (%) (Auto) 0 % (0-3) Basophils (%) (Auto) 0 % (0-3) Neutrophils # (Auto) 13.8 x10^3uL (1.8-7.7) Lymphocytes # (Auto) 0.4 x10^3/uL (1.0-4.8) Monocytes # (Auto) 0.3 x10^3/uL (0.0-1.1) Eosinophils # (Auto) 0.0 x10^3/uL (0.0-0.7) Basophils # (Auto) 0.0 x10^3/uL (0.0-0.2) Sodium Level 139 mmol/L (136-145) Potassium Level 4.4 mmol/L (3.5-5.1) Chloride Level 101 mmol/L (98-107) Carbon Dioxide Level 28 mmol/L (21-32) Anion Gap 10 (6-14) Blood Urea Nitrogen 88 mg/dL (7-20) Creatinine 4.3 mg/dL (0.6-1.0) Estimated GFR (Cockcroft-Gault) 10.3 BUN/Creatinine Ratio 20 (6-20) Glucose Level 250 mg/dL (70-99) Calcium Level 7.3 mg/dL (8.5-10.1) Total Bilirubin 0.3 mg/dL (0.2-1.0) Aspartate Amino Transf (AST/SGOT) 90 U/L (15-37) Alanine Aminotransferase (ALT/SGPT) 58 U/L (14-59) Alkaline Phosphatase 212 U/L (46-116) Total Protein 5.5 g/dL (6.4-8.2) Albumin 2.0 g/dL (3.4-5.0) Albumin/Globulin Ratio 0.6 (1.0-1.7) Micro Micro Microbiology 02/12/18 Blood Culture - Preliminary, Resulted NO GROWTH AFTER 4 DAYS 02/10/18 - Final, Complete 02/10/18 - Final, Complete 02/10/18 - Final, Complete 02/10/18 Gram Stain Evaluation - Final, Complete 02/10/18 Sputum Culture - Final, Complete 02/10/18 Sputum Result 1 - Final, Complete 02/13/18 Urine Culture - Final, Complete 02/13/18 Urine Culture Result 1 (JESSICA) - Final, Complete Review of Systems Constitutional: yes: unresponsive Physical Exam General Appearance: no apparent distress Respiratory: decreased breath sounds Heart: S1S2 Abdomen: soft, bowel sounds present Genitourinary: bladder flat Extremities: pulses present Neurology: other (SEDATED) Assessment Assessment IMP ANGELICA CHF - DIASTOLIC ANEMIA COPD PNEUMONIA ACUTE RESP FAILURE PLAN ANTIBIOTICS HD TOMORROW VENT SUPPORT WILL FOLLOW ARTEMIO PAYTON MD Feb 17, 2018 12:11
--- NOTE | 2018-02-17 12:31 | PDOC ---
Infectious Disease Note Subjective Subjective Remains intubated, FiO2 50% Sedated Hypotensive, back on Levophed 3 mcg No fevers last 24 hours Tube feedings 45 ml/hr + diarrhea, retal tube in place ROS ROS unobtainable Vital Sign Vital Signs Vital Signs Date Time Temp Pulse Resp B/P (MAP) Pulse Ox O2 Delivery O2 Flow Rate FiO2 02/17/18 11:12 93 Ventilator 02/17/18 09:25 12 02/17/18 09:00 85 104/57 (73) 02/17/18 07:00 98.1 98.1 Physical Exam PHYSICAL EXAM GENERAL: Intubated and sedated HEENT: Pupils small, ETT, OGT LUNGS: Clear to auscultation, anteriorly HEART: S1, S2. ABDOMEN: Obese, soft. No grimace or guarding to palpation. Bowel sounds present. rectal tube GENITOURINARY: Indwelling Forman in place. EXTREMITIES: Generalized edema SKIN: Warm without rash. NEUROLOGIC: Unresponsive/sedated RIJ and HDC clean Labs Lab Laboratory Tests Test 02/16/18 18:00 02/17/18 10:50 White Blood Count 14.5 x10^3/uL (4.0-11.0) 14.5 x10^3/uL (4.0-11.0) Red Blood Count 2.40 x10^6/uL (3.50-5.40) 2.35 x10^6/uL (3.50-5.40) Hemoglobin 7.5 g/dL (12.0-15.5) 7.2 g/dL (12.0-15.5) Hematocrit 21.5 % (36.0-47.0) 21.1 % (36.0-47.0) Mean Corpuscular Volume 90 fL (79-100) 90 fL (79-100) Mean Corpuscular Hemoglobin 31 pg (25-35) 31 pg (25-35) Mean Corpuscular Hemoglobin Concent 35 g/dL (31-37) 34 g/dL (31-37) Red Cell Distribution Width 15.8 % (11.5-14.5) 16.2 % (11.5-14.5) Platelet Count 366 x10^3/uL (140-400) 471 x10^3/uL (140-400) Neutrophils (%) (Auto) 95 % (31-73) Lymphocytes (%) (Auto) 3 % (24-48) Monocytes (%) (Auto) 2 % (0-9) Eosinophils (%) (Auto) 0 % (0-3) Basophils (%) (Auto) 0 % (0-3) Neutrophils # (Auto) 13.8 x10^3uL (1.8-7.7) Lymphocytes # (Auto) 0.4 x10^3/uL (1.0-4.8) Monocytes # (Auto) 0.3 x10^3/uL (0.0-1.1) Eosinophils # (Auto) 0.0 x10^3/uL (0.0-0.7) Basophils # (Auto) 0.0 x10^3/uL (0.0-0.2) Sodium Level 139 mmol/L (136-145) Potassium Level 4.4 mmol/L (3.5-5.1) Chloride Level 101 mmol/L (98-107) Carbon Dioxide Level 28 mmol/L (21-32) Anion Gap 10 (6-14) Blood Urea Nitrogen 88 mg/dL (7-20) Creatinine 4.3 mg/dL (0.6-1.0) Estimated GFR (Cockcroft-Gault) 10.3 BUN/Creatinine Ratio 20 (6-20) Glucose Level 250 mg/dL (70-99) Calcium Level 7.3 mg/dL (8.5-10.1) Total Bilirubin 0.3 mg/dL (0.2-1.0) Aspartate Amino Transf (AST/SGOT) 90 U/L (15-37) Alanine Aminotransferase (ALT/SGPT) 58 U/L (14-59) Alkaline Phosphatase 212 U/L (46-116) Total Protein 5.5 g/dL (6.4-8.2) Albumin 2.0 g/dL (3.4-5.0) Albumin/Globulin Ratio 0.6 (1.0-1.7) Micro 02/12. BLOOD CULTURE Preliminary NO GROWTH AFTER 4 DAYS Objective Assessment Fever 02/15. better Sputum with GPC from 02/10. no growth Leukocytosis, stable, on steroids Sepsis with lactic acidosis, present on admission. Acute respiratory failure, likely aspirated. s/p intubation Hypotension , Levophed restarted ANGELICA, on dialysis ALLERGY TO METRONIDAZOLE. Non-ST elevation myocardial infarction. Acute diastolic heart failure. Paroxysmal atrial fibrillation. Peripheral vascular disease. History of seizures. Tolerating meropenem History of Clostridium difficile, with fecal transplant. Plan Plan of Care Cont meropenem, renal dosing Off Zyvox and micafungin Monitor labs/cultures/temp Supportive care D/w RN Critically ill Patient seen and examined. Chart reviewed in detail. Case discussed with DELI WORKER. Agree with above Plan DELON TYLER APRN Feb 17, 2018 12:31 BRITTANY PETERS MD Feb 17, 2018 22:57
--- NOTE | 2018-02-17 13:05 | PDOC ---
PROGRESS NOTES Chief Complaint Chief Complaint Acute hypoxic respiratory failure NOW IPPV (02/09/18), Dialysis began 02/13/18, patient tolerating well Spontaneous respiration on 40% O2, failed returned to Ventilator assisted breathing AC22/450/50% 5 peep Sedated with fentanyl Levophed drip COPD, Smoker - 1 ppday? Severe sepsis - with respiratory failure likely 2/2 pneumonia/bronchitis, fever 102.6F, leukocytosis, tachycardia, Acute diastolic heart failure - BNP of greater than 35,000. diuresis for pulmonary congestion PAD - with carotid, AAA, renovascular disease - cont asa plavix NSTEMI - elevated troponin at 17. Paroxysmal atrial fibrillation. Now in sinus rhythm. on coumadin, INR subtherapeutic, History of a previous CVA - Acute metabolic encephalopathy secondary to multifactorial see above ANGELICA, VMN - new (02/10/18) History of Present Illness History of Present Illness pt. was seen and examined in ICU still Sedated with fentanyl spoke with nursing staff Vitals Vitals Vital Signs Date Time Temp Pulse Resp B/P (MAP) Pulse Ox O2 Delivery O2 Flow Rate FiO2 02/17/18 12:00 Mechanical Ventilator 02/17/18 12:00 97.4 97 9 131/72 (91) 97 97.4 Physical Exam Physical Exam GENERAL: Intubated and sedated HEENT: Pupils small, ETT, OGT LUNGS: Clear to auscultation, anteriorly HEART: S1, S2. ABDOMEN: Obese, soft. No grimace or guarding to palpation. Bowel sounds present. rectal tube GENITOURINARY: Indwelling Forman in place. EXTREMITIES: Generalized edema SKIN: Warm without rash. NEUROLOGIC: Unresponsive/sedated RIJ and HDC clean General: Other (intubated on a ventilator) Heart: Other (rate 110) Lungs: Crackles Abdomen: Normal bowel sounds Extremities: No clubbing, No cyanosis, No edema, Normal pulses, No tenderness/ swelling Skin: No rashes, No breakdown, No significant lesion Labs LABS Laboratory Tests Test 02/16/18 18:00 02/17/18 10:50 White Blood Count 14.5 x10^3/uL (4.0-11.0) 14.5 x10^3/uL (4.0-11.0) Red Blood Count 2.40 x10^6/uL (3.50-5.40) 2.35 x10^6/uL (3.50-5.40) Hemoglobin 7.5 g/dL (12.0-15.5) 7.2 g/dL (12.0-15.5) Hematocrit 21.5 % (36.0-47.0) 21.1 % (36.0-47.0) Mean Corpuscular Volume 90 fL (79-100) 90 fL (79-100) Mean Corpuscular Hemoglobin 31 pg (25-35) 31 pg (25-35) Mean Corpuscular Hemoglobin Concent 35 g/dL (31-37) 34 g/dL (31-37) Red Cell Distribution Width 15.8 % (11.5-14.5) 16.2 % (11.5-14.5) Platelet Count 366 x10^3/uL (140-400) 471 x10^3/uL (140-400) Neutrophils (%) (Auto) 95 % (31-73) Lymphocytes (%) (Auto) 3 % (24-48) Monocytes (%) (Auto) 2 % (0-9) Eosinophils (%) (Auto) 0 % (0-3) Basophils (%) (Auto) 0 % (0-3) Neutrophils # (Auto) 13.8 x10^3uL (1.8-7.7) Lymphocytes # (Auto) 0.4 x10^3/uL (1.0-4.8) Monocytes # (Auto) 0.3 x10^3/uL (0.0-1.1) Eosinophils # (Auto) 0.0 x10^3/uL (0.0-0.7) Basophils # (Auto) 0.0 x10^3/uL (0.0-0.2) Sodium Level 139 mmol/L (136-145) Potassium Level 4.4 mmol/L (3.5-5.1) Chloride Level 101 mmol/L (98-107) Carbon Dioxide Level 28 mmol/L (21-32) Anion Gap 10 (6-14) Blood Urea Nitrogen 88 mg/dL (7-20) Creatinine 4.3 mg/dL (0.6-1.0) Estimated GFR (Cockcroft-Gault) 10.3 BUN/Creatinine Ratio 20 (6-20) Glucose Level 250 mg/dL (70-99) Calcium Level 7.3 mg/dL (8.5-10.1) Total Bilirubin 0.3 mg/dL (0.2-1.0) Aspartate Amino Transf (AST/SGOT) 90 U/L (15-37) Alanine Aminotransferase (ALT/SGPT) 58 U/L (14-59) Alkaline Phosphatase 212 U/L (46-116) Total Protein 5.5 g/dL (6.4-8.2) Albumin 2.0 g/dL (3.4-5.0) Albumin/Globulin Ratio 0.6 (1.0-1.7) Review of Systems Review of Systems unable to obtain Assessment and Plan Assessmemt and Plan Assessment Acute hypoxic respiratory failure NOW IPPV (02/09/18) Dialysis began 02/13/18, patient tolerating well Returned to spotaneous respiration on 50% Fi02, 10 PEEP, sat 93% 02/16/18 -p-t-m-u-r-n-e-d- -t-o- -I-e-a-e-v-r-a-t-o-r- -a-m-m-i-s-t-e-d- -o-b-s-s-i-m-i-n-g- -A-C-2-2--/--4-5-0--/--5-0--%- -5- -p-e-e-p- -1-2--/--2-1- -/--1-8- Spontaneous respiration on 40% O2 Sedated with fentanyl Levophed drip COPD, Smoker - 1 ppday? Severe sepsis - with respiratory failure likely 2/2 pneumonia/bronchitis, fever 102.6F, leukocytosis, tachycardia, Acute diastolic heart failure - BNP of greater than 35,000. diuresis for pulmonary congestion PAD - with carotid, AAA, renovascular disease - cont asa plavix NSTEMI - elevated troponin at 17. Paroxysmal atrial fibrillation. Now in sinus rhythm. on coumadin, INR subtherapeutic, History of a previous CVA - Acute metabolic encephalopathy secondary to multifactorial see above ANGELICA, VMN - new (02/10/18) Plan Comfort Measures Family meeting tomorrow to decide on plan for future, Considering guarded prognosis and clinical course Returned to spotaneous respiration on 50% Fi02, 10 PEEP, sat 93% 02/16/18 Forman to BSD HD began 02/13/18 ICU monitoring Continue Ventilation weaning Recheck Labs OG feeds 45cc/hr Comment Review of Relevant I have reviewed the following items pat (where applicable) has been applied. Labs Laboratory Tests Test 02/16/18 05:30 02/16/18 09:40 02/16/18 18:00 02/17/18 10:50 White Blood Count 13.3 x10^3/uL (4.0-11.0) 14.5 x10^3/uL (4.0-11.0) 14.5 x10^3/uL (4.0-11.0) Red Blood Count 2.74 x10^6/uL (3.50-5.40) 2.40 x10^6/uL (3.50-5.40) 2.35 x10^6/uL (3.50-5.40) Hemoglobin 8.3 g/dL (12.0-15.5) 7.5 g/dL (12.0-15.5) 7.2 g/dL (12.0-15.5) Hematocrit 24.5 % (36.0-47.0) 21.5 % (36.0-47.0) 21.1 % (36.0-47.0) Mean Corpuscular Volume 90 fL (79-100) 90 fL (79-100) 90 fL (79-100) Mean Corpuscular Hemoglobin 30 pg (25-35) 31 pg (25-35) 31 pg (25-35) Mean Corpuscular Hemoglobin Concent 34 g/dL (31-37) 35 g/dL (31-37) 34 g/dL (31-37) Red Cell Distribution Width 16.2 % (11.5-14.5) 15.8 % (11.5-14.5) 16.2 % (11.5-14.5) Platelet Count 336 x10^3/uL (140-400) 366 x10^3/uL (140-400) 471 x10^3/uL (140-400) Neutrophils (%) (Auto) 95 % (31-73) 95 % (31-73) Lymphocytes (%) (Auto) 3 % (24-48) 3 % (24-48) Monocytes (%) (Auto) 2 % (0-9) 2 % (0-9) Eosinophils (%) (Auto) 0 % (0-3) 0 % (0-3) Basophils (%) (Auto) 0 % (0-3) 0 % (0-3) Neutrophils # (Auto) 12.6 x10^3uL (1.8-7.7) 13.8 x10^3uL (1.8-7.7) Lymphocytes # (Auto) 0.4 x10^3/uL (1.0-4.8) 0.4 x10^3/uL (1.0-4.8) Monocytes # (Auto) 0.3 x10^3/uL (0.0-1.1) 0.3 x10^3/uL (0.0-1.1) Eosinophils # (Auto) 0.0 x10^3/uL (0.0-0.7) 0.0 x10^3/uL (0.0-0.7) Basophils # (Auto) 0.0 x10^3/uL (0.0-0.2) 0.0 x10^3/uL (0.0-0.2) Sodium Level 138 mmol/L (136-145) 139 mmol/L (136-145) Potassium Level 4.8 mmol/L (3.5-5.1) 4.4 mmol/L (3.5-5.1) Chloride Level 101 mmol/L (98-107) 101 mmol/L (98-107) Carbon Dioxide Level 24 mmol/L (21-32) 28 mmol/L (21-32) Anion Gap 13 (6-14) 10 (6-14) Blood Urea Nitrogen 100 mg/dL (7-20) 88 mg/dL (7-20) Creatinine 5.0 mg/dL (0.6-1.0) 4.3 mg/dL (0.6-1.0) Estimated GFR (Cockcroft-Gault) 8.7 10.3 BUN/Creatinine Ratio 20 (6-20) 20 (6-20) Glucose Level 230 mg/dL (70-99) 250 mg/dL (70-99) Calcium Level 7.3 mg/dL (8.5-10.1) 7.3 mg/dL (8.5-10.1) Total Bilirubin 0.2 mg/dL (0.2-1.0) 0.3 mg/dL (0.2-1.0) Aspartate Amino Transf (AST/SGOT) 109 U/L (15-37) 90 U/L (15-37) Alanine Aminotransferase (ALT/SGPT) 64 U/L (14-59) 58 U/L (14-59) Alkaline Phosphatase 182 U/L (46-116) 212 U/L (46-116) Total Protein 4.6 g/dL (6.4-8.2) 5.5 g/dL (6.4-8.2) Albumin 1.4 g/dL (3.4-5.0) 2.0 g/dL (3.4-5.0) Albumin/Globulin Ratio 0.4 (1.0-1.7) 0.6 (1.0-1.7) O2 Saturation 93 % (92-99) Arterial Blood pH 7.46 (7.35-7.45) Arterial Blood pCO2 at Patient Temp 32 mmHg (35-46) Arterial Blood pO2 at Patient Temp 71 mmHg (65-108) Arterial Blood HCO3 22 mmol/L (21-28) Arterial Blood Base Excess -1 mmol/L (-3-3) FiO2 50 Laboratory Tests Test 02/16/18 18:00 02/17/18 10:50 White Blood Count 14.5 x10^3/uL (4.0-11.0) 14.5 x10^3/uL (4.0-11.0) Red Blood Count 2.40 x10^6/uL (3.50-5.40) 2.35 x10^6/uL (3.50-5.40) Hemoglobin 7.5 g/dL (12.0-15.5) 7.2 g/dL (12.0-15.5) Hematocrit 21.5 % (36.0-47.0) 21.1 % (36.0-47.0) Mean Corpuscular Volume 90 fL (79-100) 90 fL (79-100) Mean Corpuscular Hemoglobin 31 pg (25-35) 31 pg (25-35) Mean Corpuscular Hemoglobin Concent 35 g/dL (31-37) 34 g/dL (31-37) Red Cell Distribution Width 15.8 % (11.5-14.5) 16.2 % (11.5-14.5) Platelet Count 366 x10^3/uL (140-400) 471 x10^3/uL (140-400) Neutrophils (%) (Auto) 95 % (31-73) Lymphocytes (%) (Auto) 3 % (24-48) Monocytes (%) (Auto) 2 % (0-9) Eosinophils (%) (Auto) 0 % (0-3) Basophils (%) (Auto) 0 % (0-3) Neutrophils # (Auto) 13.8 x10^3uL (1.8-7.7) Lymphocytes # (Auto) 0.4 x10^3/uL (1.0-4.8) Monocytes # (Auto) 0.3 x10^3/uL (0.0-1.1) Eosinophils # (Auto) 0.0 x10^3/uL (0.0-0.7) Basophils # (Auto) 0.0 x10^3/uL (0.0-0.2) Sodium Level 139 mmol/L (136-145) Potassium Level 4.4 mmol/L (3.5-5.1) Chloride Level 101 mmol/L (98-107) Carbon Dioxide Level 28 mmol/L (21-32) Anion Gap 10 (6-14) Blood Urea Nitrogen 88 mg/dL (7-20) Creatinine 4.3 mg/dL (0.6-1.0) Estimated GFR (Cockcroft-Gault) 10.3 BUN/Creatinine Ratio 20 (6-20) Glucose Level 250 mg/dL (70-99) Calcium Level 7.3 mg/dL (8.5-10.1) Total Bilirubin 0.3 mg/dL (0.2-1.0) Aspartate Amino Transf (AST/SGOT) 90 U/L (15-37) Alanine Aminotransferase (ALT/SGPT) 58 U/L (14-59) Alkaline Phosphatase 212 U/L (46-116) Total Protein 5.5 g/dL (6.4-8.2) Albumin 2.0 g/dL (3.4-5.0) Albumin/Globulin Ratio 0.6 (1.0-1.7) Microbiology 02/12/18 Blood Culture - Preliminary, Resulted NO GROWTH AFTER 4 DAYS 02/10/18 - Final, Complete 02/10/18 - Final, Complete 02/10/18 - Final, Complete 02/10/18 Gram Stain Evaluation - Final, Complete 02/10/18 Sputum Culture - Final, Complete 02/10/18 Sputum Result 1 - Final, Complete 02/13/18 Urine Culture - Final, Complete 02/13/18 Urine Culture Result 1 (JESSICA) - Final, Complete Medications Current Medications Albuterol/ Ipratropium (Duoneb) 3 ml 1X ONCE NEB Last administered on at 17:14; Start 02/08/18 at 16:00; Stop 02/08/18 at 16:01; Status DC Vancomycin HCl (Vanco Per Pharmacy) 1 each PRN DAILY PRN MC SEE COMMENTS Last administered on 02/09/18at 08:59; Start 02/08/18 at 16:15; Stop 02/10/18 at 09 :07; Status DC Piperacillin Sod/ Tazobactam Sod (Zosyn Per Pharmacy) 1 each PRN DAILY PRN MC SEE COMMENTS; Start 02/08/18 at 16:15; Stop 02/12/18 at 07:24; Status DC Vancomycin HCl 1.75 gm/Sodium Chloride 500 ml @ 250 mls/hr 1X ONCE IV Last administered on 02/08/18at 16:36; Start 02/08/18 at 17:00; Stop 02/08/18 at 18 :59; Status DC Piperacillin Sod/ Tazobactam Sod 3.375 gm/Sodium Chloride 50 ml @ 100 mls/hr 1X ONCE IV Last administered on 02/08/18at 16:36; Start 02/08/18 at 16:30; Stop 02/08/18 at 16:59; Status DC Furosemide (Lasix) 20 mg 1X ONCE IVP Last administered on 02/08/18at 16:36; Start 02/08/18 at 16:30; Stop 02/08/18 at 16:31; Status DC Aspirin (Children'S Aspirin) 324 mg 1X ONCE PO Last administered on at 16:36; Start 02/08/18 at 16:30; Stop 02/08/18 at 16:31; Status DC Furosemide (Lasix) 20 mg 1X ONCE IVP Last administered on 02/08/18at 18:07; Start 02/08/18 at 17:00; Stop 02/08/18 at 17:01; Status DC Ondansetron HCl (Zofran) 4 mg 1X ONCE IV Last administered on 02/08/18at 17:00 ; Start 02/08/18 at 17:00; Stop 02/08/18 at 17:01; Status DC Ondansetron HCl (Zofran) 4 mg STK-MED ONCE .ROUTE ; Start 02/08/18 at 16:51; Stop 02/08/18 at 16:52; Status DC Heparin Sodium/ Dextrose 500 ml @ 0 mls/hr CONT PRN IV SEE I/O RECORD; Start 02/08/18 at 17:30; Status UNV Info (Anti-Coagulation Monitoring By Pharmacy) 1 each PRN DAILY PRN MC SEE COMMENTS Last administered on 02/11/18at 12:25; Start 02/08/18 at 17:30; Stop 02/13/18 at 09:17; Status DC Heparin Sodium/ Dextrose 500 ml @ 0 mls/hr CONT PRN IV SEE I/O RECORD Last administered on 02/12/18at 19:46; Start 02/08/18 at 17:30; Stop 02/13/18 at 08 :22; Status DC Heparin Sodium (Porcine) (Heparin Sodium) 1,800 unit PRN Q6HRS PRN IV FOR UFH LEVEL LESS THAN 0.2 Last administered on 02/08/18at 20:10; Start 02/08/18 at 17 :30; Stop 02/13/18 at 08:22; Status DC Ondansetron HCl (Zofran) 4 mg 1X PRN PRN IV NAUSEA/VOMITING; Start 02/08/18 at 18:00; Stop 02/09/18 at 09:06; Status DC Piperacillin Sod/ Tazobactam Sod 3.375 gm/Sodium Chloride 50 ml @ 100 mls/hr Q6HRS IV Last administered on 02/11/18at 05:37; Start 02/09/18 at 00:00; Stop 02/11/18 at 07:14; Status DC Vancomycin HCl 1 gm/Sodium Chloride 250 ml @ 250 mls/hr Q24H IV Last administered on 02/09/18at 16:30; Start 02/09/18 at 16:30; Stop 02/10/18 at 09 :07; Status DC Vancomycin HCl (Vancomycin Trough Level) 1 each 1X ONCE MC ; Start 02/10/18 at 16:00; Stop 02/10/18 at 16:00; Status DC Magnesium Sulfate/ Dextrose 100 ml @ 25 mls/hr 1X ONCE IV Last administered on 02/08/18at 22:03; Start 02/08/18 at 22:00; Stop 02/09/18 at 01:59; Status DC Aspirin (Radha Aspirin) 325 mg DAILY PO ; Start 02/09/18 at 09:00; Stop at 10:16; Status DC Atorvastatin Calcium (Lipitor) 10 mg HS PO ; Start 02/09/18 at 21:00; Stop at 21:00; Status DC Clonidine HCl (Catapres) 0.1 mg QHS PO Last administered on 02/08/18at 22:05; Start 02/08/18 at 22:00; Stop 02/09/18 at 10:16; Status DC Docusate Sodium (Colace) 100 mg BID PO ; Start 02/09/18 at 09:00; Stop at 10:16; Status DC Gabapentin (Neurontin) 300 mg TID PO Last administered on 02/08/18at 22:08; Start 02/08/18 at 22:20; Stop 02/09/18 at 10:16; Status DC Labetalol HCl (Normodyne Iv Push) 10 mg PRN Q2HR PRN IVP HYPERTENSION, SEE COMMENTS Last administered on 02/12/18at 15:12; Start 02/08/18 at 21:30; Stop 02/12/18 at 16:22; Status DC Lorazepam (Ativan) 1 mg PRN Q4HRS PRN IV ANXIETY / AGITATION Last administered on 02/15/18at 04:02; Start 02/08/18 at 21:30 Morphine Sulfate (Morphine Sulfate) 4 mg PRN Q4HRS PRN IV PAIN Last administered on 02/09/18at 19:45; Start 02/08/18 at 21:30 Acetaminophen (Tylenol Supp) 325 mg PRN Q6HRS PRN TN MILD PAIN / TEMP Last administered on 02/09/18at 09:30; Start 02/09/18 at 06:45 Ipratropium [place] (Atrovent) 0.5 mg RTQID NEB Last administered on at 11:12; Start 02/09/18 at 08:00 Budesonide (Pulmicort) 0.5 mg RTBID NEB Last administered on 02/17/18at 08:01; Start 02/09/18 at 08:00 Famotidine (Pepcid Vial) 20 mg QHS IVP Last administered on 02/12/18at 21:56; Start 02/09/18 at 21:00; Stop 02/13/18 at 14:47; Status DC Acetaminophen (Tylenol) 500 mg PRN Q6HRS PRN PO FEVER/KUO Last administered on 02/14/18at 17:23; Start 02/09/18 at 09:00 Ondansetron HCl (Zofran) 4 mg PRN Q6HRS PRN IV NAUSEA/VOMITING; Start at 09:00 Ondansetron HCl (Zofran Odt) 4 mg PRN Q6HRS PRN PO NAUSEA/VOMITING; Start at 09:00 Acetaminophen/ Hydrocodone Bitart (Lortab 10/325) 1 tab PRN Q4HRS PRN PO MODERATE PAIN; Start 02/09/18 at 09:00 Magnesium Hydroxide (Milk Of Magnesia) 400 mg DAILY PO Last administered on at 08:31; Start 02/09/18 at 09:00 Oxycodone HCl (OxyCONTIN) 10 mg BID PO ; Start 02/09/18 at 09:00; Stop at 10:16; Status DC Oxycodone/ Acetaminophen (Percocet 5/325) 1 tab BID PO ; Start 02/09/18 at 09: 00; Stop 02/09/18 at 10:16; Status DC Tramadol HCl (Ultram) 50 mg PRN DAILY PRN PO MILD PAIN; Start 02/09/18 at 09: 00 Non-Formulary Medication (Acetaminophen ) 1 tab BID PO ; Start 02/09/18 at 09: 00; Stop 02/09/18 at 09:12; Status DC Non-Formulary Medication (Albuterol Sulfate (Albuterol Sulfate Neb Soln)) 1 vial QID NEB ; Start 02/09/18 at 09:00; Stop 02/09/18 at 09:22; Status DC Citalopram Hydrobromide (CeleXA) 40 mg QHS PO ; Start 02/09/18 at 21:00; Stop 02/09/18 at 21:00; Status DC Hydrochlorothiazide (Microzide) 12.5 mg QHS PO ; Start 02/09/18 at 21:00; Stop 02/09/18 at 21:00; Status DC Non-Formulary Medication (Magnesium Oxide ) 1 tab DAILY PO ; Start 02/09/18 at 09:00; Stop 02/09/18 at 09:14; Status DC Non-Formulary Medication (Multivitamin (Multivitamins)) 1 tab DAILY PO ; Start 02/09/18 at 09:00; Stop 02/09/18 at 09:14; Status DC Nicotine (Nicoderm Cq 14mg) 1 patch DAILY TD Last administered on 02/14/18at 08 :08; Start 02/09/18 at 10:00 Ondansetron HCl (Zofran Odt) 4 mg Q6HRS PO Last administered on 02/14/18at 05: 52; Start 02/09/18 at 12:00; Stop 02/14/18 at 15:05; Status DC Non-Formulary Medication (Polyethylene Glycol 3350 (Miralax)) 1 packet DAILY PO ; Start 02/09/18 at 09:00; Stop 02/09/18 at 09:17; Status DC Quetiapine Fumarate (SEROquel) 25 mg QHS PO ; Start 02/09/18 at 21:00; Stop at 21:00; Status DC Labetalol HCl (Normodyne Iv Push) 10 mg PRN Q2HR PRN IVP HYPERTENSION, SEE COMMENTS; Start 02/09/18 at 09:00; Stop 02/09/18 at 09:06; Status DC Acetaminophen (Tylenol) 500 mg BID PO ; Start 02/09/18 at 10:00; Stop at 10:16; Status DC Magnesium Oxide (Magnesium Oxide) 400 mg DAILY PO Last administered on at 08:46; Start 02/09/18 at 10:00 Multivitamins (Thera M Plus) 1 tab DAILY PO ; Start 02/09/18 at 10:00; Stop at 10:16; Status DC Polyethylene Glycol (miraLAX PACKET) 17 gm DAILY PO ; Start 02/09/18 at 10:00; Stop 02/09/18 at 10:16; Status DC Albuterol Sulfate (Ventolin Neb Soln) 2.5 mg RTQID NEB Last administered on at 10:45; Start 02/09/18 at 12:00; Stop 02/15/18 at 18:59; Status DC Furosemide (Lasix) 60 mg 1X ONCE IVP Last administered on 02/09/18at 20:16; Start 02/09/18 at 20:00; Stop 02/09/18 at 20:01; Status DC Rocuronium [place] (Zemuron) 50 mg STK-MED ONCE .ROUTE ; Start 02/09/18 at 20: 23; Stop 02/09/18 at 20:24; Status DC Fentanyl Citrate 30 ml @ 0 mls/hr CONT PRN IV SEE PROTOCOL Last administered on 02/17/18at 09:25; Start 02/09/18 at 20:30 Propofol 100 ml @ 0 mls/hr CONT PRN IV SEE PROTOCOL Last administered on at 14:09; Start 02/09/18 at 20:30 Midazolam HCl 100 ml @ 5 mls/hr CONT PRN IV SEE I/O RECORD Last administered on 02/12/18at 03:38; Start 02/09/18 at 22:00; Stop 02/13/18 at 17:22; Status DC Norepinephrine Bitartrate 250 ml @ As Directed STK-MED ONCE IV ; Start at 02:33; Stop 02/10/18 at 02:35; Status DC Norepinephrine Bitartrate 250 ml @ 1.875 mls/ hr CONT PRN IV SEE I/O RECORD Last administered on 02/17/18at 04:35; Start 02/10/18 at 02:45 Methylprednisolone Sodium Succinate (SOLU-Medrol 40MG VIAL) 40 mg Q12HR IV Last administered on 02/17/18at 08:46; Start 02/10/18 at 09:00 Piperacillin Sod/ Tazobactam Sod 2.25 gm/Sodium Chloride 50 ml @ 100 mls/hr Q6HRS IV Last administered on 02/12/18at 05:47; Start 02/11/18 at 12:00; Stop 02/12/18 at 07:24; Status DC Propofol (Diprivan) 200 mg STK-MED ONCE IV ; Start 02/09/18 at 07:00; Stop at 07:43; Status DC Succinylcholine Chloride (Anectine) 200 mg STK-MED ONCE .ROUTE ; Start at 07:00; Stop 02/11/18 at 07:43; Status DC Phenylephrine HCl (PHENYLEPHRINE in 0.9% NACL PF) 1 mg STK-MED ONCE IV ; Start 02/09/18 at 07:00; Stop 02/11/18 at 07:43; Status DC Ephedrine Sulfate (ePHEDrine PF IN SALINE SYRINGE) 50 mg STK-MED ONCE IV ; Start 02/09/18 at 07:00; Stop 02/11/18 at 07:43; Status DC Rocuronium [place] (Zemuron) 50 mg STK-MED ONCE .ROUTE ; Start 02/09/18 at 21: 00; Stop 02/11/18 at 08:22; Status DC Linezolid/Dextrose 300 ml @ 300 mls/hr Q12HR IV Last administered on at 08:32; Start 02/12/18 at 09:00; Stop 02/15/18 at 10:31; Status DC Micafungin Sodium 100 mg/Dextrose 100 ml @ 100 mls/hr Q24H IV Last administered on 02/15/18at 08:34; Start 02/12/18 at 10:00; Stop 02/15/18 at 10 :31; Status DC Cefepime HCl (Maxipime) 1 gm Q12HR IVP Last administered on 02/13/18at 08:19; Start 02/12/18 at 09:00; Stop 02/13/18 at 10:56; Status DC Atorvastatin Calcium (Lipitor) 10 mg QHS PO Last administered on 02/16/18at 20: 35; Start 02/12/18 at 21:00 Labetalol HCl (Normodyne Iv Push) 20 mg PRN Q2HR PRN IVP HYPERTENSION, SEE COMMENTS Last administered on 02/13/18at 05:34; Start 02/12/18 at 16:15 Aspirin (Children'S Aspirin) 81 mg DAILYWBKFT PO Last administered on at 08:46; Start 02/12/18 at 16:15 Metoprolol Tartrate (Lopressor) 25 mg BID PO Last administered on 02/16/18at 20 :36; Start 02/13/18 at 11:00 Cefepime HCl (Maxipime) 1 gm QHS IVP ; Start 02/13/18 at 21:00; Stop 02/13/18 at 21:00; Status DC Lidocaine/Sodium Bicarbonate (Buffered Lidocaine 1%) 3 ml STK-MED ONCE .ROUTE ; Start 02/13/18 at 13:32; Stop 02/13/18 at 13:33; Status DC Heparin Sodium (Porcine) (Heparin Sodium) 10,000 unit STK-MED ONCE .ROUTE ; Start 02/13/18 at 13:32; Stop 02/13/18 at 13:33; Status DC Midazolam HCl (Versed) 5 mg STK-MED ONCE .ROUTE ; Start 02/13/18 at 14:04; Stop 02/13/18 at 14:05; Status DC Midazolam HCl (Versed) 5 mg 1X ONCE IV Last administered on 02/13/18at 14:10; Start 02/13/18 at 14:15; Stop 02/13/18 at 14:16; Status DC Lidocaine/Sodium Bicarbonate (Buffered Lidocaine 1%) 4 ml 1X ONCE INJ Last administered on 02/13/18at 14:57; Start 02/13/18 at 14:45; Stop 02/13/18 at 14 :52; Status DC Heparin Sodium (Porcine) (Heparin Sodium) 2,200 unit 1X ONCE INT CAT Last administered on 02/13/18at 15:02; Start 02/13/18 at 14:45; Stop 02/13/18 at 14 :52; Status DC Pantoprazole Sodium (PROTONIX VIAL for IV PUSH) 40 mg BIDAC IVP Last administered on 02/17/18at 08:46; Start 02/13/18 at 16:30 Heparin Sodium (Porcine) (Heparin Sodium) 2,500 unit 1X ONCE INT CAT ; Start 02/13/18 at 15:00; Stop 02/13/18 at 15:03; Status DC Meropenem 500 mg/ Sodium Chloride 50 ml @ 100 mls/hr Q24H IV Last administered on 02/16/18at 16:26; Start 02/13/18 at 16:00 Midazolam HCl 100 ml @ 5 mls/hr CONT PRN IV SEE I/O RECORD Last administered on 02/15/18at 05:58; Start 02/13/18 at 15:15 Midazolam HCl (Versed) 5 mg STK-MED ONCE .ROUTE ; Start 02/13/18 at 15:15; Stop 02/13/18 at 15:16; Status DC Clopidogrel Bisulfate (Plavix) 75 mg [id number] PO Last administered on at 08:46; Start 02/13/18 at 16:00 Sodium Chloride 1,000 ml @ 1,000 mls/hr Q1H PRN IV hypotension; Start at 19:27; Stop 02/14/18 at 01:26; Status DC Albumin Human 200 ml @ 200 mls/hr 1X PRN PRN IV Hypotension; Start 02/13/18 at 19:30; Stop 02/14/18 at 01:29; Status DC Sodium Chloride 1,000 ml @ 400 mls/hr Q2H30M PRN IV PATENCY; Start 02/13/18 at 19:27; Stop 02/14/18 at 07:26; Status DC Info (PHARMACY MONITORING -- do not chart) 1 each PRN DAILY PRN MC SEE COMMENTS ; Start 02/13/18 at 19:30; Stop 02/16/18 at 15:59; Status DC Info (PHARMACY MONITORING -- do not chart) 1 each PRN DAILY PRN MC SEE COMMENTS ; Start 02/13/18 at 19:30; Status UNV Sodium Chloride 1,000 ml @ 1,000 mls/hr Q1H PRN IV hypotension; Start at 08:16; Stop 02/14/18 at 14:15; Status DC Sodium Chloride 1,000 ml @ 400 mls/hr Q2H30M PRN IV PATENCY; Start 02/14/18 at 08:16; Stop 02/14/18 at 20:15; Status DC Info (PHARMACY MONITORING -- do not chart) 1 each PRN DAILY PRN MC SEE COMMENTS ; Start 02/14/18 at 08:30; Status UNV Midazolam HCl (Versed) 5 mg STK-MED ONCE .ROUTE ; Start 02/13/18 at 15:30; Stop 02/14/18 at 09:00; Status DC Albuterol Sulfate (Ventolin Neb Soln) 2.5 mg PRN Q4HRS PRN NEB SHORTNESS OF BREATH; Start 02/15/18 at 19:00 Albumin Human 200 ml @ 200 mls/hr 1X PRN PRN IV Hypotension; Start 02/16/18 at 10:00; Stop 02/16/18 at 15:59; Status DC Sodium Chloride (Normal Saline Flush) 10 ml 1X PRN PRN IV AP catheter pack; Start 02/16/18 at 10:00; Stop 02/17/18 at 09:59; Status DC Sodium Chloride (Normal Saline Flush) 10 ml 1X PRN PRN IV PLANT BREEDER catheter pack; Start 02/16/18 at 10:00; Stop 02/17/18 at 09:59; Status DC Info (PHARMACY MONITORING -- do not chart) 1 each PRN DAILY PRN MC SEE COMMENTS ; Start 02/16/18 at 12:45 Info (PHARMACY MONITORING -- do not chart) 1 each PRN DAILY PRN MC SEE COMMENTS ; Start 02/16/18 at 12:45; Status UNV Furosemide (Lasix) 40 mg 1X ONCE IVP Last administered on 02/16/18at 23:42; Start 02/16/18 at 23:45; Stop 02/16/18 at 23:46; Status DC Multi-Ingred Cream/Lotion/Oil/ Oint (Artificial Tears Eye Ointment) 1 benjamin PRN Q1HR PRN OU DRY EYE; Start 02/17/18 at 07:45 Active Scripts Active Percocet 5-325 Mg Tablet (Oxycodone/Acetaminophen) 1 Each Tablet 1 Tab PO BID 3 Days Reported Zofran (Ondansetron Hcl) 4 Mg Tablet 1 Tab PO Q6HRS Milk Of Magnesia (Magnesium Hydroxide) 400 Mg/5 Ml Oral.susp 400 Mg PO Acetaminophen 500 Mg Tablet 1 Tab PO BID Clonidine Hcl 0.1 Mg Tablet 1 Tab PO QHS Tramadol Hcl 50 Mg Tablet 50 Mg PO DAILY PRN Hydralazine Hcl 20 Mg/1 Ml Vial 20 Mg IJ Gabapentin (Gabapentin) 300 Mg Capsule 300 Mg PO TID Acidophilus (Lactobacillus Acidophilus) 1 Each Capsule 1 Each PO Atorvastatin Calcium 10 Mg Tablet 1 Tab PO DAILY Vitamin C (Ascorbic Acid) 500 Mg Tablet.er 500 Mg PO Aspirin 325 Mg Tablet 1 Tab PO DAILY Colace (Docusate Sodium) 100 Mg Capsule 1 Cap PO BID Magnesium Oxide 400 Mg Tablet 1 Tab PO DAILY Multivitamins (Multivitamin) 1 Each Tablet 1 Tab PO DAILY NICODERM CQ 14mg (Nicotine) 1 Each Patch.td24 1 Patch TP DAILY Miralax (Polyethylene Glycol 3350) 17 Gm Powd.pack 1 Packet PO DAILY Albuterol Sulfate Neb Soln (Albuterol Sulfate) 0.63 Mg/3 Ml Vial.neb 1 Vial NEB QID Prednisone 20 Mg Tablet 1 Tab PO DAILY Seroquel (Quetiapine Fumarate) 25 Mg Tablet 1 Tab PO QHS Hydrochlorothiazide Tablet (Hydrochlorothiazide) 12.5 Mg Tablet 1 Tab PO QHS Lexapro (Escitalopram Oxalate) 20 Mg Tablet 1 Tab PO QHS Hydrocodone-Apap 10-325 (Hydrocodone Bit/Acetaminophen) 1 Each Tablet 1 Tab PO PRN Q4HRS Oxycontin (Oxycodone HCl) 10 Mg Tab.er.12h 10 Mg PO BID Vitals/I & O Vital Sign - Last 24 Hours 02/16/18 02/16/18 02/16/18 02/16/18 14:00 15:00 15:46 16:00 Temp 97.5 97.5 Pulse 108 105 Resp 20 27 B/P (MAP) 93/65 (74) 150/78 (102) Pulse Ox 96 94 93 O2 Delivery Ventilator Ventilator Ventilator Mechanical Ventilator 02/16/18 02/16/18 02/16/18 02/16/18 16:00 17:00 18:00 19:00 Temp 98.7 98.7 Pulse 115 120 118 120 Resp 25 25 31 25 B/P (MAP) 163/84 (110) 169/89 (115) 159/80 (106) 166/86 (112) Pulse Ox 95 92 94 92 O2 Delivery Ventilator Ventilator Ventilator Ventilator 02/16/18 02/16/18 02/16/18 02/16/18 19:21 20:00 20:00 20:36 Temp 98.6 98.6 Pulse 120 123 Resp 27 B/P (MAP) 187/92 (123) 177/93 Pulse Ox 92 93 O2 Delivery Ventilator Ventilator Mechanical Ventilator 02/16/18 02/16/18 02/16/18 02/16/18 21:00 21:15 22:00 22:49 Pulse 120 110 Resp 35 25 B/P (MAP) 177/93 (121) 181/92 (121) Pulse Ox 92 96 95 93 O2 Delivery Ventilator Ventilator Ventilator Ventilator 02/16/18 02/17/18 02/17/18 02/17/18 23:00 00:00 00:00 01:00 Temp 97.9 97.9 Pulse 126 114 120 Resp 37 18 30 B/P (MAP) 197/101 (133) 125/66 (85) 173/91 (118) Pulse Ox 91 93 94 O2 Delivery Ventilator Mechanical Ventilator Ventilator Ventilator 02/17/18 02/17/18 02/17/18 02/17/18 01:05 02:00 02:45 03:45 Temp 98.0 98.0 Pulse 118 93 Resp 27 27 B/P (MAP) 179/89 (119) 86/52 (63) Pulse Ox 96 98 96 98 O2 Delivery Ventilator Ventilator Ventilator Ventilator 02/17/18 02/17/18 02/17/18 02/17/18 04:00 04:00 04:30 04:45 Pulse 90 90 80 Resp 15 B/P (MAP) 84/49 (61) 79/54 (62) 111/66 (81) Pulse Ox 100 O2 Delivery Mechanical Ventilator Ventilator 02/17/18 02/17/18 02/17/18 02/17/18 05:00 05:15 05:25 05:30 Pulse 78 77 81 B/P (MAP) 116/54 (74) 111/61 (78) 112/64 (80) Pulse Ox 96 O2 Delivery Ventilator 02/17/18 02/17/18 02/17/18 02/17/18 05:45 06:00 06:15 06:30 Pulse 82 79 85 88 B/P (MAP) 119/65 (83) 110/55 (73) 95/59 (71) 119/63 (81) 02/17/18 02/17/18 02/17/18 02/17/18 07:00 08:00 08:00 08:01 Temp 98.1 98.1 Pulse 106 98 Resp 12 25 B/P (MAP) 121/63 (82) 172/83 (112) Pulse Ox 100 100 97 O2 Delivery Mechanical Ventilator Ventilator 02/17/18 02/17/18 02/17/18 02/17/18 08:46 09:00 09:25 10:00 Pulse 85 85 100 Resp 12 12 12 B/P (MAP) 97/55 104/57 (73) 99/54 (69) Pulse Ox 94 94 94 O2 Delivery Ventilator 02/17/18 02/17/18 02/17/18 02/17/18 11:00 11:12 12:00 12:00 Temp 97.4 97.4 Pulse 95 97 Resp 12 9 B/P (MAP) 140/77 (98) 131/72 (91) Pulse Ox 95 93 97 O2 Delivery Ventilator Mechanical Ventilator Intake and Output 02/16/18 02/16/18 02/17/18 15:01 23:01 07:01 Intake Total 360 ml 1288.57 ml 2642.94 ml Output Total 290 ml 25 ml 830 ml Balance 70 ml 1263.57 ml 1812.94 ml Nutrition Consultation Dietary Evaluation: Recommendations by RD: Increase Calorie Intake Comments: Continue TF per current order: Jevity 1.5@goal rate 45 ml/hr w/150 ml water flushes q4 hrs or flushes per MD Expected Outcomes/Goals: TF for nutrition needs while pt remains intubated - met, goal ongoing Interpretation of weight loss: >10% in 6 months Malnutrition Findings: Body Fat Depletion (Non Severe: Mild Depletion Weight Status: Appropriate CASTLE,NIAL K III DO Feb 17, 2018 13:05
--- NOTE | 2018-02-17 14:36 | PDOC ---
PROGRESS NOTES Subjective Subjective Patient seen and examined Objective Objective Vital Signs Date Time Temp Pulse Resp B/P (MAP) Pulse Ox O2 Delivery O2 Flow Rate FiO2 02/17/18 12:00 Mechanical Ventilator 02/17/18 12:00 97.4 97 9 131/72 (91) 97 97.4 Intake and Output 02/17/18 07:01 Intake Total 4291.51 ml Output Total 1145 ml Balance 3146.51 ml IV Total 93.51 ml Tube Feeding 2998 ml Other 1200 ml Output Urine Total 1145 ml Physical Exam Abdomen: Normal bowel sounds Heart: Regular rate General: Other (intubated on a ventilator) Lungs: Other (decreased breath sounds) Assessment Assessment Problems Medical Problems: (1) CHF (congestive heart failure) Status: Acute (2) Elevated troponin Status: Acute (3) Heart failure Status: Acute (4) Respiratory failure Status: Acute (5) Shortness of breath Status: Acute 1. Acute hypoxic respiratory failure: The patient remains intubated. Continue present treatments. Goals of care to be discussed with the patient's family. 2. Acute diastolic heart failure: multifactorial. Continue present treatment. 3. Severe multi-region peripheral vascular disease as above. We'll continue on present treatments at this time. 4. NSTEMI: Peaked trop at 44. EF at 50% with possible mild hypokinesis in the distal septal wall. Continuing medical treatment at this time. 5. PAFIB; mainly SR, but having short bursts of AFIB . Sinus rhythm this morning 6. History of CVA. 7. ANGELICA; hemodialysis as per the renal service. 8. Metabolic encephalopathy 9. Accelerated HTN; under better control. Comment Review of Relevant I have reviewed the following items pat (where applicable) has been applied. Labs Laboratory Tests Test 02/16/18 05:30 02/16/18 09:40 02/16/18 18:00 02/17/18 10:50 White Blood Count 13.3 x10^3/uL (4.0-11.0) 14.5 x10^3/uL (4.0-11.0) 14.5 x10^3/uL (4.0-11.0) Red Blood Count 2.74 x10^6/uL (3.50-5.40) 2.40 x10^6/uL (3.50-5.40) 2.35 x10^6/uL (3.50-5.40) Hemoglobin 8.3 g/dL (12.0-15.5) 7.5 g/dL (12.0-15.5) 7.2 g/dL (12.0-15.5) Hematocrit 24.5 % (36.0-47.0) 21.5 % (36.0-47.0) 21.1 % (36.0-47.0) Mean Corpuscular Volume 90 fL (79-100) 90 fL (79-100) 90 fL (79-100) Mean Corpuscular Hemoglobin 30 pg (25-35) 31 pg (25-35) 31 pg (25-35) Mean Corpuscular Hemoglobin Concent 34 g/dL (31-37) 35 g/dL (31-37) 34 g/dL (31-37) Red Cell Distribution Width 16.2 % (11.5-14.5) 15.8 % (11.5-14.5) 16.2 % (11.5-14.5) Platelet Count 336 x10^3/uL (140-400) 366 x10^3/uL (140-400) 471 x10^3/uL (140-400) Neutrophils (%) (Auto) 95 % (31-73) 95 % (31-73) Lymphocytes (%) (Auto) 3 % (24-48) 3 % (24-48) Monocytes (%) (Auto) 2 % (0-9) 2 % (0-9) Eosinophils (%) (Auto) 0 % (0-3) 0 % (0-3) Basophils (%) (Auto) 0 % (0-3) 0 % (0-3) Neutrophils # (Auto) 12.6 x10^3uL (1.8-7.7) 13.8 x10^3uL (1.8-7.7) Lymphocytes # (Auto) 0.4 x10^3/uL (1.0-4.8) 0.4 x10^3/uL (1.0-4.8) Monocytes # (Auto) 0.3 x10^3/uL (0.0-1.1) 0.3 x10^3/uL (0.0-1.1) Eosinophils # (Auto) 0.0 x10^3/uL (0.0-0.7) 0.0 x10^3/uL (0.0-0.7) Basophils # (Auto) 0.0 x10^3/uL (0.0-0.2) 0.0 x10^3/uL (0.0-0.2) Sodium Level 138 mmol/L (136-145) 139 mmol/L (136-145) Potassium Level 4.8 mmol/L (3.5-5.1) 4.4 mmol/L (3.5-5.1) Chloride Level 101 mmol/L (98-107) 101 mmol/L (98-107) Carbon Dioxide Level 24 mmol/L (21-32) 28 mmol/L (21-32) Anion Gap 13 (6-14) 10 (6-14) Blood Urea Nitrogen 100 mg/dL (7-20) 88 mg/dL (7-20) Creatinine 5.0 mg/dL (0.6-1.0) 4.3 mg/dL (0.6-1.0) Estimated GFR (Cockcroft-Gault) 8.7 10.3 BUN/Creatinine Ratio 20 (6-20) 20 (6-20) Glucose Level 230 mg/dL (70-99) 250 mg/dL (70-99) Calcium Level 7.3 mg/dL (8.5-10.1) 7.3 mg/dL (8.5-10.1) Total Bilirubin 0.2 mg/dL (0.2-1.0) 0.3 mg/dL (0.2-1.0) Aspartate Amino Transf (AST/SGOT) 109 U/L (15-37) 90 U/L (15-37) Alanine Aminotransferase (ALT/SGPT) 64 U/L (14-59) 58 U/L (14-59) Alkaline Phosphatase 182 U/L (46-116) 212 U/L (46-116) Total Protein 4.6 g/dL (6.4-8.2) 5.5 g/dL (6.4-8.2) Albumin 1.4 g/dL (3.4-5.0) 2.0 g/dL (3.4-5.0) Albumin/Globulin Ratio 0.4 (1.0-1.7) 0.6 (1.0-1.7) O2 Saturation 93 % (92-99) Arterial Blood pH 7.46 (7.35-7.45) Arterial Blood pCO2 at Patient Temp 32 mmHg (35-46) Arterial Blood pO2 at Patient Temp 71 mmHg (65-108) Arterial Blood HCO3 22 mmol/L (21-28) Arterial Blood Base Excess -1 mmol/L (-3-3) FiO2 50 Laboratory Tests Test 02/16/18 18:00 02/17/18 10:50 White Blood Count 14.5 x10^3/uL (4.0-11.0) 14.5 x10^3/uL (4.0-11.0) Red Blood Count 2.40 x10^6/uL (3.50-5.40) 2.35 x10^6/uL (3.50-5.40) Hemoglobin 7.5 g/dL (12.0-15.5) 7.2 g/dL (12.0-15.5) Hematocrit 21.5 % (36.0-47.0) 21.1 % (36.0-47.0) Mean Corpuscular Volume 90 fL (79-100) 90 fL (79-100) Mean Corpuscular Hemoglobin 31 pg (25-35) 31 pg (25-35) Mean Corpuscular Hemoglobin Concent 35 g/dL (31-37) 34 g/dL (31-37) Red Cell Distribution Width 15.8 % (11.5-14.5) 16.2 % (11.5-14.5) Platelet Count 366 x10^3/uL (140-400) 471 x10^3/uL (140-400) Neutrophils (%) (Auto) 95 % (31-73) Lymphocytes (%) (Auto) 3 % (24-48) Monocytes (%) (Auto) 2 % (0-9) Eosinophils (%) (Auto) 0 % (0-3) Basophils (%) (Auto) 0 % (0-3) Neutrophils # (Auto) 13.8 x10^3uL (1.8-7.7) Lymphocytes # (Auto) 0.4 x10^3/uL (1.0-4.8) Monocytes # (Auto) 0.3 x10^3/uL (0.0-1.1) Eosinophils # (Auto) 0.0 x10^3/uL (0.0-0.7) Basophils # (Auto) 0.0 x10^3/uL (0.0-0.2) Sodium Level 139 mmol/L (136-145) Potassium Level 4.4 mmol/L (3.5-5.1) Chloride Level 101 mmol/L (98-107) Carbon Dioxide Level 28 mmol/L (21-32) Anion Gap 10 (6-14) Blood Urea Nitrogen 88 mg/dL (7-20) Creatinine 4.3 mg/dL (0.6-1.0) Estimated GFR (Cockcroft-Gault) 10.3 BUN/Creatinine Ratio 20 (6-20) Glucose Level 250 mg/dL (70-99) Calcium Level 7.3 mg/dL (8.5-10.1) Total Bilirubin 0.3 mg/dL (0.2-1.0) Aspartate Amino Transf (AST/SGOT) 90 U/L (15-37) Alanine Aminotransferase (ALT/SGPT) 58 U/L (14-59) Alkaline Phosphatase 212 U/L (46-116) Total Protein 5.5 g/dL (6.4-8.2) Albumin 2.0 g/dL (3.4-5.0) Albumin/Globulin Ratio 0.6 (1.0-1.7) Microbiology 02/12/18 Blood Culture - Final, Complete NO GROWTH AFTER 5 DAYS 02/10/18 - Final, Complete 02/10/18 - Final, Complete 02/10/18 - Final, Complete 02/10/18 Gram Stain Evaluation - Final, Complete 02/10/18 Sputum Culture - Final, Complete 02/10/18 Sputum Result 1 - Final, Complete 02/13/18 Urine Culture - Final, Complete 02/13/18 Urine Culture Result 1 (JESSICA) - Final, Complete Medications Current Medications Albuterol/ Ipratropium (Duoneb) 3 ml 1X ONCE NEB Last administered on at 17:14; Start 02/08/18 at 16:00; Stop 02/08/18 at 16:01; Status DC Vancomycin HCl (Vanco Per Pharmacy) 1 each PRN DAILY PRN MC SEE COMMENTS Last administered on 02/09/18at 08:59; Start 02/08/18 at 16:15; Stop 02/10/18 at 09 :07; Status DC Piperacillin Sod/ Tazobactam Sod (Zosyn Per Pharmacy) 1 each PRN DAILY PRN MC SEE COMMENTS; Start 02/08/18 at 16:15; Stop 02/12/18 at 07:24; Status DC Vancomycin HCl 1.75 gm/Sodium Chloride 500 ml @ 250 mls/hr 1X ONCE IV Last administered on 02/08/18at 16:36; Start 02/08/18 at 17:00; Stop 02/08/18 at 18 :59; Status DC Piperacillin Sod/ Tazobactam Sod 3.375 gm/Sodium Chloride 50 ml @ 100 mls/hr 1X ONCE IV Last administered on 02/08/18at 16:36; Start 02/08/18 at 16:30; Stop 02/08/18 at 16:59; Status DC Furosemide (Lasix) 20 mg 1X ONCE IVP Last administered on 02/08/18at 16:36; Start 02/08/18 at 16:30; Stop 02/08/18 at 16:31; Status DC Aspirin (Children'S Aspirin) 324 mg 1X ONCE PO Last administered on at 16:36; Start 02/08/18 at 16:30; Stop 02/08/18 at 16:31; Status DC Furosemide (Lasix) 20 mg 1X ONCE IVP Last administered on 02/08/18at 18:07; Start 02/08/18 at 17:00; Stop 02/08/18 at 17:01; Status DC Ondansetron HCl (Zofran) 4 mg 1X ONCE IV Last administered on 02/08/18at 17:00 ; Start 02/08/18 at 17:00; Stop 02/08/18 at 17:01; Status DC Ondansetron HCl (Zofran) 4 mg STK-MED ONCE .ROUTE ; Start 02/08/18 at 16:51; Stop 02/08/18 at 16:52; Status DC Heparin Sodium/ Dextrose 500 ml @ 0 mls/hr CONT PRN IV SEE I/O RECORD; Start 02/08/18 at 17:30; Status UNV Info (Anti-Coagulation Monitoring By Pharmacy) 1 each PRN DAILY PRN MC SEE COMMENTS Last administered on 02/11/18at 12:25; Start 02/08/18 at 17:30; Stop 02/13/18 at 09:17; Status DC Heparin Sodium/ Dextrose 500 ml @ 0 mls/hr CONT PRN IV SEE I/O RECORD Last administered on 02/12/18at 19:46; Start 02/08/18 at 17:30; Stop 02/13/18 at 08 :22; Status DC Heparin Sodium (Porcine) (Heparin Sodium) 1,800 unit PRN Q6HRS PRN IV FOR UFH LEVEL LESS THAN 0.2 Last administered on 02/08/18at 20:10; Start 02/08/18 at 17 :30; Stop 02/13/18 at 08:22; Status DC Ondansetron HCl (Zofran) 4 mg 1X PRN PRN IV NAUSEA/VOMITING; Start 02/08/18 at 18:00; Stop 02/09/18 at 09:06; Status DC Piperacillin Sod/ Tazobactam Sod 3.375 gm/Sodium Chloride 50 ml @ 100 mls/hr Q6HRS IV Last administered on 02/11/18at 05:37; Start 02/09/18 at 00:00; Stop 02/11/18 at 07:14; Status DC Vancomycin HCl 1 gm/Sodium Chloride 250 ml @ 250 mls/hr Q24H IV Last administered on 02/09/18at 16:30; Start 02/09/18 at 16:30; Stop 02/10/18 at 09 :07; Status DC Vancomycin HCl (Vancomycin Trough Level) 1 each 1X ONCE MC ; Start 02/10/18 at 16:00; Stop 02/10/18 at 16:00; Status DC Magnesium Sulfate/ Dextrose 100 ml @ 25 mls/hr 1X ONCE IV Last administered on 02/08/18at 22:03; Start 02/08/18 at 22:00; Stop 02/09/18 at 01:59; Status DC Aspirin (Radha Aspirin) 325 mg DAILY PO ; Start 02/09/18 at 09:00; Stop at 10:16; Status DC Atorvastatin Calcium (Lipitor) 10 mg HS PO ; Start 02/09/18 at 21:00; Stop at 21:00; Status DC Clonidine HCl (Catapres) 0.1 mg QHS PO Last administered on 02/08/18at 22:05; Start 02/08/18 at 22:00; Stop 02/09/18 at 10:16; Status DC Docusate Sodium (Colace) 100 mg BID PO ; Start 02/09/18 at 09:00; Stop at 10:16; Status DC Gabapentin (Neurontin) 300 mg TID PO Last administered on 02/08/18at 22:08; Start 02/08/18 at 22:20; Stop 02/09/18 at 10:16; Status DC Labetalol HCl (Normodyne Iv Push) 10 mg PRN Q2HR PRN IVP HYPERTENSION, SEE COMMENTS Last administered on 02/12/18at 15:12; Start 02/08/18 at 21:30; Stop 02/12/18 at 16:22; Status DC Lorazepam (Ativan) 1 mg PRN Q4HRS PRN IV ANXIETY / AGITATION Last administered on 02/15/18at 04:02; Start 02/08/18 at 21:30 Morphine Sulfate (Morphine Sulfate) 4 mg PRN Q4HRS PRN IV PAIN Last administered on 02/09/18at 19:45; Start 02/08/18 at 21:30 Acetaminophen (Tylenol Supp) 325 mg PRN Q6HRS PRN SD MILD PAIN / TEMP Last administered on 02/09/18at 09:30; Start 02/09/18 at 06:45 Ipratropium [place] (Atrovent) 0.5 mg RTQID NEB Last administered on at 11:12; Start 02/09/18 at 08:00 Budesonide (Pulmicort) 0.5 mg RTBID NEB Last administered on 02/17/18at 08:01; Start 02/09/18 at 08:00 Famotidine (Pepcid Vial) 20 mg QHS IVP Last administered on 02/12/18at 21:56; Start 02/09/18 at 21:00; Stop 02/13/18 at 14:47; Status DC Acetaminophen (Tylenol) 500 mg PRN Q6HRS PRN PO FEVER/KUO Last administered on 02/14/18at 17:23; Start 02/09/18 at 09:00 Ondansetron HCl (Zofran) 4 mg PRN Q6HRS PRN IV NAUSEA/VOMITING; Start at 09:00 Ondansetron HCl (Zofran Odt) 4 mg PRN Q6HRS PRN PO NAUSEA/VOMITING; Start at 09:00 Acetaminophen/ Hydrocodone Bitart (Lortab 10/325) 1 tab PRN Q4HRS PRN PO MODERATE PAIN; Start 02/09/18 at 09:00 Magnesium Hydroxide (Milk Of Magnesia) 400 mg DAILY PO Last administered on at 08:31; Start 02/09/18 at 09:00 Oxycodone HCl (OxyCONTIN) 10 mg BID PO ; Start 02/09/18 at 09:00; Stop at 10:16; Status DC Oxycodone/ Acetaminophen (Percocet 5/325) 1 tab BID PO ; Start 02/09/18 at 09: 00; Stop 02/09/18 at 10:16; Status DC Tramadol HCl (Ultram) 50 mg PRN DAILY PRN PO MILD PAIN; Start 02/09/18 at 09: 00 Non-Formulary Medication (Acetaminophen ) 1 tab BID PO ; Start 02/09/18 at 09: 00; Stop 02/09/18 at 09:12; Status DC Non-Formulary Medication (Albuterol Sulfate (Albuterol Sulfate Neb Soln)) 1 vial QID NEB ; Start 02/09/18 at 09:00; Stop 02/09/18 at 09:22; Status DC Citalopram Hydrobromide (CeleXA) 40 mg QHS PO ; Start 02/09/18 at 21:00; Stop 02/09/18 at 21:00; Status DC Hydrochlorothiazide (Microzide) 12.5 mg QHS PO ; Start 02/09/18 at 21:00; Stop 02/09/18 at 21:00; Status DC Non-Formulary Medication (Magnesium Oxide ) 1 tab DAILY PO ; Start 02/09/18 at 09:00; Stop 02/09/18 at 09:14; Status DC Non-Formulary Medication (Multivitamin (Multivitamins)) 1 tab DAILY PO ; Start 02/09/18 at 09:00; Stop 02/09/18 at 09:14; Status DC Nicotine (Nicoderm Cq 14mg) 1 patch DAILY TD Last administered on 02/14/18at 08 :08; Start 02/09/18 at 10:00 Ondansetron HCl (Zofran Odt) 4 mg Q6HRS PO Last administered on 02/14/18at 05: 52; Start 02/09/18 at 12:00; Stop 02/14/18 at 15:05; Status DC Non-Formulary Medication (Polyethylene Glycol 3350 (Miralax)) 1 packet DAILY PO ; Start 02/09/18 at 09:00; Stop 02/09/18 at 09:17; Status DC Quetiapine Fumarate (SEROquel) 25 mg QHS PO ; Start 02/09/18 at 21:00; Stop at 21:00; Status DC Labetalol HCl (Normodyne Iv Push) 10 mg PRN Q2HR PRN IVP HYPERTENSION, SEE COMMENTS; Start 02/09/18 at 09:00; Stop 02/09/18 at 09:06; Status DC Acetaminophen (Tylenol) 500 mg BID PO ; Start 02/09/18 at 10:00; Stop at 10:16; Status DC Magnesium Oxide (Magnesium Oxide) 400 mg DAILY PO Last administered on at 08:46; Start 02/09/18 at 10:00 Multivitamins (Thera M Plus) 1 tab DAILY PO ; Start 02/09/18 at 10:00; Stop at 10:16; Status DC Polyethylene Glycol (miraLAX PACKET) 17 gm DAILY PO ; Start 02/09/18 at 10:00; Stop 02/09/18 at 10:16; Status DC Albuterol Sulfate (Ventolin Neb Soln) 2.5 mg RTQID NEB Last administered on at 10:45; Start 02/09/18 at 12:00; Stop 02/15/18 at 18:59; Status DC Furosemide (Lasix) 60 mg 1X ONCE IVP Last administered on 02/09/18at 20:16; Start 02/09/18 at 20:00; Stop 02/09/18 at 20:01; Status DC Rocuronium [place] (Zemuron) 50 mg STK-MED ONCE .ROUTE ; Start 02/09/18 at 20: 23; Stop 02/09/18 at 20:24; Status DC Fentanyl Citrate 30 ml @ 0 mls/hr CONT PRN IV SEE PROTOCOL Last administered on 02/17/18at 09:25; Start 02/09/18 at 20:30 Propofol 100 ml @ 0 mls/hr CONT PRN IV SEE PROTOCOL Last administered on at 14:09; Start 02/09/18 at 20:30 Midazolam HCl 100 ml @ 5 mls/hr CONT PRN IV SEE I/O RECORD Last administered on 02/12/18at 03:38; Start 02/09/18 at 22:00; Stop 02/13/18 at 17:22; Status DC Norepinephrine Bitartrate 250 ml @ As Directed STK-MED ONCE IV ; Start at 02:33; Stop 02/10/18 at 02:35; Status DC Norepinephrine Bitartrate 250 ml @ 1.875 mls/ hr CONT PRN IV SEE I/O RECORD Last administered on 02/17/18at 04:35; Start 02/10/18 at 02:45 Methylprednisolone Sodium Succinate (SOLU-Medrol 40MG VIAL) 40 mg Q12HR IV Last administered on 02/17/18at 08:46; Start 02/10/18 at 09:00 Piperacillin Sod/ Tazobactam Sod 2.25 gm/Sodium Chloride 50 ml @ 100 mls/hr Q6HRS IV Last administered on 02/12/18at 05:47; Start 02/11/18 at 12:00; Stop 02/12/18 at 07:24; Status DC Propofol (Diprivan) 200 mg STK-MED ONCE IV ; Start 02/09/18 at 07:00; Stop at 07:43; Status DC Succinylcholine Chloride (Anectine) 200 mg STK-MED ONCE .ROUTE ; Start at 07:00; Stop 02/11/18 at 07:43; Status DC Phenylephrine HCl (PHENYLEPHRINE in 0.9% NACL PF) 1 mg STK-MED ONCE IV ; Start 02/09/18 at 07:00; Stop 02/11/18 at 07:43; Status DC Ephedrine Sulfate (ePHEDrine PF IN SALINE SYRINGE) 50 mg STK-MED ONCE IV ; Start 02/09/18 at 07:00; Stop 02/11/18 at 07:43; Status DC Rocuronium [place] (Zemuron) 50 mg STK-MED ONCE .ROUTE ; Start 02/09/18 at 21: 00; Stop 02/11/18 at 08:22; Status DC Linezolid/Dextrose 300 ml @ 300 mls/hr Q12HR IV Last administered on at 08:32; Start 02/12/18 at 09:00; Stop 02/15/18 at 10:31; Status DC Micafungin Sodium 100 mg/Dextrose 100 ml @ 100 mls/hr Q24H IV Last administered on 02/15/18at 08:34; Start 02/12/18 at 10:00; Stop 02/15/18 at 10 :31; Status DC Cefepime HCl (Maxipime) 1 gm Q12HR IVP Last administered on 02/13/18at 08:19; Start 02/12/18 at 09:00; Stop 02/13/18 at 10:56; Status DC Atorvastatin Calcium (Lipitor) 10 mg QHS PO Last administered on 02/16/18at 20: 35; Start 02/12/18 at 21:00 Labetalol HCl (Normodyne Iv Push) 20 mg PRN Q2HR PRN IVP HYPERTENSION, SEE COMMENTS Last administered on 02/13/18at 05:34; Start 02/12/18 at 16:15 Aspirin (Children'S Aspirin) 81 mg DAILYWBKFT PO Last administered on at 08:46; Start 02/12/18 at 16:15 Metoprolol Tartrate (Lopressor) 25 mg BID PO Last administered on 02/16/18at 20 :36; Start 02/13/18 at 11:00 Cefepime HCl (Maxipime) 1 gm QHS IVP ; Start 02/13/18 at 21:00; Stop 02/13/18 at 21:00; Status DC Lidocaine/Sodium Bicarbonate (Buffered Lidocaine 1%) 3 ml STK-MED ONCE .ROUTE ; Start 02/13/18 at 13:32; Stop 02/13/18 at 13:33; Status DC Heparin Sodium (Porcine) (Heparin Sodium) 10,000 unit STK-MED ONCE .ROUTE ; Start 02/13/18 at 13:32; Stop 02/13/18 at 13:33; Status DC Midazolam HCl (Versed) 5 mg STK-MED ONCE .ROUTE ; Start 02/13/18 at 14:04; Stop 02/13/18 at 14:05; Status DC Midazolam HCl (Versed) 5 mg 1X ONCE IV Last administered on 02/13/18at 14:10; Start 02/13/18 at 14:15; Stop 02/13/18 at 14:16; Status DC Lidocaine/Sodium Bicarbonate (Buffered Lidocaine 1%) 4 ml 1X ONCE INJ Last administered on 02/13/18at 14:57; Start 02/13/18 at 14:45; Stop 02/13/18 at 14 :52; Status DC Heparin Sodium (Porcine) (Heparin Sodium) 2,200 unit 1X ONCE INT CAT Last administered on 02/13/18at 15:02; Start 02/13/18 at 14:45; Stop 02/13/18 at 14 :52; Status DC Pantoprazole Sodium (PROTONIX VIAL for IV PUSH) 40 mg BIDAC IVP Last administered on 02/17/18at 08:46; Start 02/13/18 at 16:30 Heparin Sodium (Porcine) (Heparin Sodium) 2,500 unit 1X ONCE INT CAT ; Start 02/13/18 at 15:00; Stop 02/13/18 at 15:03; Status DC Meropenem 500 mg/ Sodium Chloride 50 ml @ 100 mls/hr Q24H IV Last administered on 02/16/18at 16:26; Start 02/13/18 at 16:00 Midazolam HCl 100 ml @ 5 mls/hr CONT PRN IV SEE I/O RECORD Last administered on 02/15/18at 05:58; Start 02/13/18 at 15:15 Midazolam HCl (Versed) 5 mg STK-MED ONCE .ROUTE ; Start 02/13/18 at 15:15; Stop 02/13/18 at 15:16; Status DC Clopidogrel Bisulfate (Plavix) 75 mg DAILYWBKFT PO Last administered on at 08:46; Start 02/13/18 at 16:00 Sodium Chloride 1,000 ml @ 1,000 mls/hr Q1H PRN IV hypotension; Start at 19:27; Stop 02/14/18 at 01:26; Status DC Albumin Human 200 ml @ 200 mls/hr 1X PRN PRN IV Hypotension; Start 02/13/18 at 19:30; Stop 02/14/18 at 01:29; Status DC Sodium Chloride 1,000 ml @ 400 mls/hr Q2H30M PRN IV PATENCY; Start 02/13/18 at 19:27; Stop 02/14/18 at 07:26; Status DC Info (PHARMACY MONITORING -- do not chart) 1 each PRN DAILY PRN MC SEE COMMENTS ; Start 02/13/18 at 19:30; Stop 02/16/18 at 15:59; Status DC Info (PHARMACY MONITORING -- do not chart) 1 each PRN DAILY PRN MC SEE COMMENTS ; Start 02/13/18 at 19:30; Status UNV Sodium Chloride 1,000 ml @ 1,000 mls/hr Q1H PRN IV hypotension; Start at 08:16; Stop 02/14/18 at 14:15; Status DC Sodium Chloride 1,000 ml @ 400 mls/hr Q2H30M PRN IV PATENCY; Start 02/14/18 at 08:16; Stop 02/14/18 at 20:15; Status DC Info (PHARMACY MONITORING -- do not chart) 1 each PRN DAILY PRN MC SEE COMMENTS ; Start 02/14/18 at 08:30; Status UNV Midazolam HCl (Versed) 5 mg STK-MED ONCE .ROUTE ; Start 02/13/18 at 15:30; Stop 02/14/18 at 09:00; Status DC Albuterol Sulfate (Ventolin Neb Soln) 2.5 mg PRN Q4HRS PRN NEB SHORTNESS OF BREATH; Start 02/15/18 at 19:00 Albumin Human 200 ml @ 200 mls/hr 1X PRN PRN IV Hypotension; Start 02/16/18 at 10:00; Stop 02/16/18 at 15:59; Status DC Sodium Chloride (Normal Saline Flush) 10 ml 1X PRN PRN IV AP catheter pack; Start 02/16/18 at 10:00; Stop 02/17/18 at 09:59; Status DC Sodium Chloride (Normal Saline Flush) 10 ml 1X PRN PRN IV HEALTH AND SAFETY ADVISOR catheter pack; Start 02/16/18 at 10:00; Stop 02/17/18 at 09:59; Status DC Info (PHARMACY MONITORING -- do not chart) 1 each PRN DAILY PRN MC SEE COMMENTS ; Start 02/16/18 at 12:45 Info (PHARMACY MONITORING -- do not chart) 1 each PRN DAILY PRN MC SEE COMMENTS ; Start 02/16/18 at 12:45; Status UNV Furosemide (Lasix) 40 mg 1X ONCE IVP Last administered on 02/16/18at 23:42; Start 02/16/18 at 23:45; Stop 02/16/18 at 23:46; Status DC Multi-Ingred Cream/Lotion/Oil/ Oint (Artificial Tears Eye Ointment) 1 benjamin PRN Q1HR PRN OU DRY EYE; Start 02/17/18 at 07:45 Active Scripts Active Percocet 5-325 Mg Tablet (Oxycodone/Acetaminophen) 1 Each Tablet 1 Tab PO BID 3 Days Reported Zofran (Ondansetron Hcl) 4 Mg Tablet 1 Tab PO Q6HRS Milk Of Magnesia (Magnesium Hydroxide) 400 Mg/5 Ml Oral.susp 400 Mg PO Acetaminophen 500 Mg Tablet 1 Tab PO BID Clonidine Hcl 0.1 Mg Tablet 1 Tab PO QHS Tramadol Hcl 50 Mg Tablet 50 Mg PO DAILY PRN Hydralazine Hcl 20 Mg/1 Ml Vial 20 Mg IJ Gabapentin (Gabapentin) 300 Mg Capsule 300 Mg PO TID Acidophilus (Lactobacillus Acidophilus) 1 Each Capsule 1 Each PO Atorvastatin Calcium 10 Mg Tablet 1 Tab PO DAILY Vitamin C (Ascorbic Acid) 500 Mg Tablet.er 500 Mg PO Aspirin 325 Mg Tablet 1 Tab PO DAILY Colace (Docusate Sodium) 100 Mg Capsule 1 Cap PO BID Magnesium Oxide 400 Mg Tablet 1 Tab PO DAILY Multivitamins (Multivitamin) 1 Each Tablet 1 Tab PO DAILY NICODERM CQ 14mg (Nicotine) 1 Each Patch.td24 1 Patch TP DAILY Miralax (Polyethylene Glycol 3350) 17 Gm Powd.pack 1 Packet PO DAILY Albuterol Sulfate Neb Soln (Albuterol Sulfate) 0.63 Mg/3 Ml Vial.neb 1 Vial NEB QID Prednisone 20 Mg Tablet 1 Tab PO DAILY Seroquel (Quetiapine Fumarate) 25 Mg Tablet 1 Tab PO QHS Hydrochlorothiazide Tablet (Hydrochlorothiazide) 12.5 Mg Tablet 1 Tab PO QHS Lexapro (Escitalopram Oxalate) 20 Mg Tablet 1 Tab PO QHS Hydrocodone-Apap 10-325 (Hydrocodone Bit/Acetaminophen) 1 Each Tablet 1 Tab PO PRN Q4HRS Oxycontin (Oxycodone HCl) 10 Mg Tab.er.12h 10 Mg PO BID Vitals/I & O Vital Sign - Last 24 Hours 02/16/18 02/16/18 02/16/18 02/16/18 15:00 15:46 16:00 16:00 Pulse 105 115 Resp 27 25 B/P (MAP) 150/78 (102) 163/84 (110) Pulse Ox 94 93 95 O2 Delivery Ventilator Ventilator Mechanical Ventilator Ventilator 02/16/18 02/16/18 02/16/18 02/16/18 17:00 18:00 19:00 19:21 Temp 98.7 98.7 Pulse 120 118 120 Resp 25 31 25 B/P (MAP) 169/89 (115) 159/80 (106) 166/86 (112) Pulse Ox 92 94 92 92 O2 Delivery Ventilator Ventilator Ventilator Ventilator 02/16/18 02/16/18 02/16/18 02/16/18 20:00 20:00 20:36 21:00 Temp 98.6 98.6 Pulse 120 123 120 Resp 27 35 B/P (MAP) 187/92 (123) 177/93 177/93 (121) Pulse Ox 93 92 O2 Delivery Ventilator Mechanical Ventilator Ventilator 02/16/18 02/16/18 02/16/18 02/16/18 21:15 22:00 22:49 23:00 Pulse 110 126 Resp 25 37 B/P (MAP) 181/92 (121) 197/101 (133) Pulse Ox 96 95 93 91 O2 Delivery Ventilator Ventilator Ventilator Ventilator 02/17/18 02/17/18 02/17/18 02/17/18 00:00 00:00 01:00 01:05 Temp 97.9 97.9 Pulse 114 120 Resp 18 30 B/P (MAP) 125/66 (85) 173/91 (118) Pulse Ox 93 94 96 O2 Delivery Mechanical Ventilator Ventilator Ventilator Ventilator 02/17/18 02/17/18 02/17/18 02/17/18 02:00 02:45 03:45 04:00 Temp 98.0 98.0 Pulse 118 93 Resp 27 27 B/P (MAP) 179/89 (119) 86/52 (63) Pulse Ox 98 96 98 O2 Delivery Ventilator Ventilator Ventilator Mechanical Ventilator 02/17/18 02/17/18 02/17/18 02/17/18 04:00 04:30 04:45 05:00 Pulse 90 90 80 78 Resp 15 B/P (MAP) 84/49 (61) 79/54 (62) 111/66 (81) 116/54 (74) Pulse Ox 100 O2 Delivery Ventilator 02/17/18 02/17/18 02/17/18 02/17/18 05:15 05:25 05:30 05:45 Pulse 77 81 82 B/P (MAP) 111/61 (78) 112/64 (80) 119/65 (83) Pulse Ox 96 O2 Delivery Ventilator 02/17/18 02/17/18 02/17/18 02/17/18 06:00 06:15 06:30 07:00 Temp 98.1 98.1 Pulse 79 85 88 106 Resp 12 B/P (MAP) 110/55 (73) 95/59 (71) 119/63 (81) 121/63 (82) Pulse Ox 100 02/17/18 02/17/18 02/17/18 02/17/18 08:00 08:00 08:01 08:46 Pulse 98 85 Resp 25 B/P (MAP) 172/83 (112) 97/55 Pulse Ox 100 97 O2 Delivery Mechanical Ventilator Ventilator 02/17/18 02/17/18 02/17/18 02/17/18 09:00 09:25 10:00 11:00 Pulse 85 100 95 Resp 12 12 12 12 B/P (MAP) 104/57 (73) 99/54 (69) 140/77 (98) Pulse Ox 94 94 94 95 O2 Delivery Ventilator 02/17/18 02/17/18 02/17/18 11:12 12:00 12:00 Temp 97.4 97.4 Pulse 97 Resp 9 B/P (MAP) 131/72 (91) Pulse Ox 93 97 O2 Delivery Ventilator Mechanical Ventilator Intake and Output 02/16/18 02/16/18 02/17/18 15:01 23:01 07:01 Intake Total 360 ml 1288.57 ml 2642.94 ml Output Total 290 ml 25 ml 830 ml Balance 70 ml 1263.57 ml 1812.94 ml Nutrition Consultation Dietary Evaluation: Recommendations by RD: Increase Calorie Intake Comments: Continue TF per current order: Jevity 1.5@goal rate 45 ml/hr w/150 ml water flushes q4 hrs or flushes per MD Expected Outcomes/Goals: TF for nutrition needs while pt remains intubated - met, goal ongoing Interpretation of weight loss: >10% in 6 months Malnutrition Findings: Body Fat Depletion (Non Severe: Mild Depletion Weight Status: Appropriate ALEX RUDOLPH MD Feb 17, 2018 14:36
[2018-02-17] MEDS: MEROPENEM 500 MG in IV NORMAL SALINE 50ML 50 ML IV SCH (16:29)
[2018-02-17] MEDS: MIDAZOLAM 100mg/100ml NS BAG 100 ML IV PRN (18:10)
[2018-02-17] MEDS: ATORVASTATIN CALCIUM 10 MG TABLET. PO SCH (19:56)
[2018-02-18] VITALS (28 sets, daily range): BP systolic 80–201; BP diastolic 53–106
[2018-02-18 06:26] LABS: BASO % 0 % (0-3); EOS % 0 % (0-3); LYMPH # 0.3 x10^3/uL (1.0-4.8); LYMPH % 3 % (24-48); MEAN CORPUSCULAR HEMOGLOBIN 31 pg (25-35); MEAN CORPUSCULAR HGB CONC 34 g/dL (31-37); MEAN CORPUSCULAR VOLUME 89 fL (79-100); MONO # 0.3 x10^3/uL (0.0-1.1); MONO % 2 % (0-9); NEUT % 95 % (31-73); PLATELET COUNT 517 x10^3/uL (140-400); RED BLOOD COUNT 2.13 x10^6/uL (3.50-5.40); RED CELL DISTRIBUTION WIDTH 15.9 % (11.5-14.5); WHITE BLOOD COUNT 12.7 x10^3/uL (4.0-11.0)
[2018-02-18 06:33] LABS: HEMOGLOBIN 6.5 g/dL (12.0-15.5)
[2018-02-18 06:36] LABS: CALCIUM 7.4 mg/dL (8.5-10.1); CREATININE 5.3 mg/dL (0.6-1.0); GFR 8.1; POTASSIUM 4.9 mmol/L (3.5-5.1)
--- NOTE | 2018-02-18 07:45 | RAD ---
Portable chest, 02/18/2018: HISTORY: Respiratory failure Comparison is made to yesterday's study. The ET tube tip lies 9 cm above the sohan. An NG tube extends into the stomach. There appear to be 2 right jugular central venous catheters extending into the inferior aspect of the superior vena cava. The heart size is normal. The pulmonary infiltrates have improved slightly, although there is moderate residual infiltrate on the left. No pleural fluid or pneumothorax is seen. No new abnormality is detected. IMPRESSION: 1. Stable tube positions. 2. Slightly improved pulmonary infiltrates. Electronically signed by: Juan Dale MD (02/18/2018 7:41 AM) [facility]
--- NOTE | 2018-02-18 07:55 | PDOC ---
Infectious Disease Note Subjective Subjective Remains intubated, FiO2 50% Sedated Hypotensive, back on Levophed 3 mcg No fevers last 24 hours Tube feedings 45 ml/hr + diarrhea, retal tube in place Vital Sign Vital Signs Vital Signs Date Time Temp Pulse Resp B/P (MAP) Pulse Ox O2 Delivery O2 Flow Rate FiO2 02/18/18 06:00 99 15 142/71 (94) 95 02/18/18 05:40 Ventilator 02/18/18 04:00 99.0 99.0 Physical Exam PHYSICAL EXAM GENERAL: Intubated and sedated HEENT: Pupils small, ETT, OGT LUNGS: Clear to auscultation, anteriorly HEART: S1, S2. ABDOMEN: Obese, soft. No grimace or guarding to palpation. Bowel sounds present. rectal tube GENITOURINARY: Indwelling Forman in place. EXTREMITIES: Generalized edema SKIN: Warm without rash. NEUROLOGIC: Unresponsive/sedated RIJ and HDC clean Labs Lab Laboratory Tests Test 02/17/18 10:50 02/18/18 06:05 White Blood Count 14.5 x10^3/uL (4.0-11.0) 12.7 x10^3/uL (4.0-11.0) Red Blood Count 2.35 x10^6/uL (3.50-5.40) 2.13 x10^6/uL (3.50-5.40) Hemoglobin 7.2 g/dL (12.0-15.5) 6.5 g/dL (12.0-15.5) Hematocrit 21.1 % (36.0-47.0) 19.0 % (36.0-47.0) Mean Corpuscular Volume 90 fL (79-100) 89 fL (79-100) Mean Corpuscular Hemoglobin 31 pg (25-35) 31 pg (25-35) Mean Corpuscular Hemoglobin Concent 34 g/dL (31-37) 34 g/dL (31-37) Red Cell Distribution Width 16.2 % (11.5-14.5) 15.9 % (11.5-14.5) Platelet Count 471 x10^3/uL (140-400) 517 x10^3/uL (140-400) Neutrophils (%) (Auto) 95 % (31-73) 95 % (31-73) Lymphocytes (%) (Auto) 3 % (24-48) 3 % (24-48) Monocytes (%) (Auto) 2 % (0-9) 2 % (0-9) Eosinophils (%) (Auto) 0 % (0-3) 0 % (0-3) Basophils (%) (Auto) 0 % (0-3) 0 % (0-3) Neutrophils # (Auto) 13.8 x10^3uL (1.8-7.7) 12.0 x10^3uL (1.8-7.7) Lymphocytes # (Auto) 0.4 x10^3/uL (1.0-4.8) 0.3 x10^3/uL (1.0-4.8) Monocytes # (Auto) 0.3 x10^3/uL (0.0-1.1) 0.3 x10^3/uL (0.0-1.1) Eosinophils # (Auto) 0.0 x10^3/uL (0.0-0.7) 0.0 x10^3/uL (0.0-0.7) Basophils # (Auto) 0.0 x10^3/uL (0.0-0.2) 0.0 x10^3/uL (0.0-0.2) Sodium Level 139 mmol/L (136-145) 140 mmol/L (136-145) Potassium Level 4.4 mmol/L (3.5-5.1) 4.9 mmol/L (3.5-5.1) Chloride Level 101 mmol/L (98-107) 102 mmol/L (98-107) Carbon Dioxide Level 28 mmol/L (21-32) 25 mmol/L (21-32) Anion Gap 10 (6-14) 13 (6-14) Blood Urea Nitrogen 88 mg/dL (7-20) 111 mg/dL (7-20) Creatinine 4.3 mg/dL (0.6-1.0) 5.3 mg/dL (0.6-1.0) Estimated GFR (Cockcroft-Gault) 10.3 8.1 BUN/Creatinine Ratio 20 (6-20) Glucose Level 250 mg/dL (70-99) 200 mg/dL (70-99) Calcium Level 7.3 mg/dL (8.5-10.1) 7.4 mg/dL (8.5-10.1) Total Bilirubin 0.3 mg/dL (0.2-1.0) Aspartate Amino Transf (AST/SGOT) 90 U/L (15-37) Alanine Aminotransferase (ALT/SGPT) 58 U/L (14-59) Alkaline Phosphatase 212 U/L (46-116) Total Protein 5.5 g/dL (6.4-8.2) Albumin 2.0 g/dL (3.4-5.0) Albumin/Globulin Ratio 0.6 (1.0-1.7) Micro Microbiology 02/12/18 Blood Culture - Preliminary, Resulted NO GROWTH AFTER 1 DAY 02/10/18 - Final, Complete 02/10/18 - Final, Complete 02/10/18 - Final, Complete 02/10/18 Gram Stain Evaluation - Final, Complete 02/10/18 Sputum Culture - Final, Complete 02/10/18 Sputum Result 1 - Final, Complete Objective Assessment Fever - better Sputum with GPC from 02/10 Sepsis with lactic acidosis, present on admission.- better off Levophed Acute respiratory failure, likely aspirated. s/p intubation now on Solumedrol Hypotension resolved ANGELICA - Non-ST elevation myocardial infarction. Troponin up to 44.56 now Acute diastolic heart failure. Paroxysmal atrial fibrillation. Peripheral vascular disease. History of seizures. History of Clostridium difficile, with fecal transplant. Plan Plan of Care Cont meropenem, renal dosing Off Zyvox and micafungin Monitor labs/cultures/temp Supportive care check c diff D/w RN Critically ill ZOFIA DAVALOS MD Feb 18, 2018 07:55
[2018-02-18] MEDS: PANTOPRAZOLE IV PUSH 40 MG VIAL. IVP SCH ×2 (08:49→18:23)
[2018-02-18] MEDS: methylPREDNISolone SOD SUCC PF 40 MG/ML VIAL. IV SCH ×2 (08:49→21:06)
[2018-02-18] MEDS: MAGNESIUM OXIDE 400 MG TABLET PO SCH (08:50)
[2018-02-18] MEDS: NICOTINE 14MG PATCH. TD SCH (08:50)
[2018-02-18] MEDS: ASPIRIN CHEWABLE 81 MG TABLET. PO SCH (08:50)
[2018-02-18] MEDS: METOPROLOL TART IMMED RELEASE 25 MG TABLET. PO SCH ×2 (08:50→21:06)
[2018-02-18] MEDS: CLOPIDOGREL BISULFATE 75 MG TABLET PO SCH (08:50)
--- NOTE | 2018-02-18 08:50 | PDOC ---
PULMONARY PROGRESS NOTES Subjective ON AC VENT Vitals Vital Signs Date Time Temp Pulse Resp B/P (MAP) Pulse Ox O2 Delivery O2 Flow Rate FiO2 02/18/18 08:44 10 96 Ventilator 02/18/18 08:26 98.2 11 179/87 98.2 Lungs: Crackles Cardiovascular: S1, S2 Abdomen: Soft, Non-tender Extremities: No Edema Labs Laboratory Tests Test 02/16/18 09:40 02/16/18 18:00 02/17/18 10:50 02/18/18 06:05 O2 Saturation 93 % (92-99) Arterial Blood pH 7.46 (7.35-7.45) Arterial Blood pCO2 at Patient Temp 32 mmHg (35-46) Arterial Blood pO2 at Patient Temp 71 mmHg (65-108) Arterial Blood HCO3 22 mmol/L (21-28) Arterial Blood Base Excess -1 mmol/L (-3-3) FiO2 50 White Blood Count 14.5 x10^3/uL (4.0-11.0) 14.5 x10^3/uL (4.0-11.0) 12.7 x10^3/uL (4.0-11.0) Red Blood Count 2.40 x10^6/uL (3.50-5.40) 2.35 x10^6/uL (3.50-5.40) 2.13 x10^6/uL (3.50-5.40) Hemoglobin 7.5 g/dL (12.0-15.5) 7.2 g/dL (12.0-15.5) 6.5 g/dL (12.0-15.5) Hematocrit 21.5 % (36.0-47.0) 21.1 % (36.0-47.0) 19.0 % (36.0-47.0) Mean Corpuscular Volume 90 fL (79-100) 90 fL (79-100) 89 fL (79-100) Mean Corpuscular Hemoglobin 31 pg (25-35) 31 pg (25-35) 31 pg (25-35) Mean Corpuscular Hemoglobin Concent 35 g/dL (31-37) 34 g/dL (31-37) 34 g/dL (31-37) Red Cell Distribution Width 15.8 % (11.5-14.5) 16.2 % (11.5-14.5) 15.9 % (11.5-14.5) Platelet Count 366 x10^3/uL (140-400) 471 x10^3/uL (140-400) 517 x10^3/uL (140-400) Neutrophils (%) (Auto) 95 % (31-73) 95 % (31-73) Lymphocytes (%) (Auto) 3 % (24-48) 3 % (24-48) Monocytes (%) (Auto) 2 % (0-9) 2 % (0-9) Eosinophils (%) (Auto) 0 % (0-3) 0 % (0-3) Basophils (%) (Auto) 0 % (0-3) 0 % (0-3) Neutrophils # (Auto) 13.8 x10^3uL (1.8-7.7) 12.0 x10^3uL (1.8-7.7) Lymphocytes # (Auto) 0.4 x10^3/uL (1.0-4.8) 0.3 x10^3/uL (1.0-4.8) Monocytes # (Auto) 0.3 x10^3/uL (0.0-1.1) 0.3 x10^3/uL (0.0-1.1) Eosinophils # (Auto) 0.0 x10^3/uL (0.0-0.7) 0.0 x10^3/uL (0.0-0.7) Basophils # (Auto) 0.0 x10^3/uL (0.0-0.2) 0.0 x10^3/uL (0.0-0.2) Sodium Level 139 mmol/L (136-145) 140 mmol/L (136-145) Potassium Level 4.4 mmol/L (3.5-5.1) 4.9 mmol/L (3.5-5.1) Chloride Level 101 mmol/L (98-107) 102 mmol/L (98-107) Carbon Dioxide Level 28 mmol/L (21-32) 25 mmol/L (21-32) Anion Gap 10 (6-14) 13 (6-14) Blood Urea Nitrogen 88 mg/dL (7-20) 111 mg/dL (7-20) Creatinine 4.3 mg/dL (0.6-1.0) 5.3 mg/dL (0.6-1.0) Estimated GFR (Cockcroft-Gault) 10.3 8.1 BUN/Creatinine Ratio 20 (6-20) Glucose Level 250 mg/dL (70-99) 200 mg/dL (70-99) Calcium Level 7.3 mg/dL (8.5-10.1) 7.4 mg/dL (8.5-10.1) Total Bilirubin 0.3 mg/dL (0.2-1.0) Aspartate Amino Transf (AST/SGOT) 90 U/L (15-37) Alanine Aminotransferase (ALT/SGPT) 58 U/L (14-59) Alkaline Phosphatase 212 U/L (46-116) Total Protein 5.5 g/dL (6.4-8.2) Albumin 2.0 g/dL (3.4-5.0) Albumin/Globulin Ratio 0.6 (1.0-1.7) Laboratory Tests Test 02/17/18 10:50 02/18/18 06:05 White Blood Count 14.5 x10^3/uL (4.0-11.0) 12.7 x10^3/uL (4.0-11.0) Red Blood Count 2.35 x10^6/uL (3.50-5.40) 2.13 x10^6/uL (3.50-5.40) Hemoglobin 7.2 g/dL (12.0-15.5) 6.5 g/dL (12.0-15.5) Hematocrit 21.1 % (36.0-47.0) 19.0 % (36.0-47.0) Mean Corpuscular Volume 90 fL (79-100) 89 fL (79-100) Mean Corpuscular Hemoglobin 31 pg (25-35) 31 pg (25-35) Mean Corpuscular Hemoglobin Concent 34 g/dL (31-37) 34 g/dL (31-37) Red Cell Distribution Width 16.2 % (11.5-14.5) 15.9 % (11.5-14.5) Platelet Count 471 x10^3/uL (140-400) 517 x10^3/uL (140-400) Neutrophils (%) (Auto) 95 % (31-73) 95 % (31-73) Lymphocytes (%) (Auto) 3 % (24-48) 3 % (24-48) Monocytes (%) (Auto) 2 % (0-9) 2 % (0-9) Eosinophils (%) (Auto) 0 % (0-3) 0 % (0-3) Basophils (%) (Auto) 0 % (0-3) 0 % (0-3) Neutrophils # (Auto) 13.8 x10^3uL (1.8-7.7) 12.0 x10^3uL (1.8-7.7) Lymphocytes # (Auto) 0.4 x10^3/uL (1.0-4.8) 0.3 x10^3/uL (1.0-4.8) Monocytes # (Auto) 0.3 x10^3/uL (0.0-1.1) 0.3 x10^3/uL (0.0-1.1) Eosinophils # (Auto) 0.0 x10^3/uL (0.0-0.7) 0.0 x10^3/uL (0.0-0.7) Basophils # (Auto) 0.0 x10^3/uL (0.0-0.2) 0.0 x10^3/uL (0.0-0.2) Sodium Level 139 mmol/L (136-145) 140 mmol/L (136-145) Potassium Level 4.4 mmol/L (3.5-5.1) 4.9 mmol/L (3.5-5.1) Chloride Level 101 mmol/L (98-107) 102 mmol/L (98-107) Carbon Dioxide Level 28 mmol/L (21-32) 25 mmol/L (21-32) Anion Gap 10 (6-14) 13 (6-14) Blood Urea Nitrogen 88 mg/dL (7-20) 111 mg/dL (7-20) Creatinine 4.3 mg/dL (0.6-1.0) 5.3 mg/dL (0.6-1.0) Estimated GFR (Cockcroft-Gault) 10.3 8.1 BUN/Creatinine Ratio 20 (6-20) Glucose Level 250 mg/dL (70-99) 200 mg/dL (70-99) Calcium Level 7.3 mg/dL (8.5-10.1) 7.4 mg/dL (8.5-10.1) Total Bilirubin 0.3 mg/dL (0.2-1.0) Aspartate Amino Transf (AST/SGOT) 90 U/L (15-37) Alanine Aminotransferase (ALT/SGPT) 58 U/L (14-59) Alkaline Phosphatase 212 U/L (46-116) Total Protein 5.5 g/dL (6.4-8.2) Albumin 2.0 g/dL (3.4-5.0) Albumin/Globulin Ratio 0.6 (1.0-1.7) Medications Active Scripts Medications Dose Route/Sig Max Daily Dose Days Date Category Zofran (Ondansetron Hcl) 4 Mg Tablet 1 Tab PO Q6HRS 09/20/17 Reported Milk Of Magnesia (Magnesium Hydroxide) 400 Mg/5 Ml Oral.susp 400 Mg PO 09/20/17 Reported Acetaminophen 500 Mg Tablet 1 Tab PO BID 09/20/17 Reported Clonidine Hcl 0.1 Mg Tablet 1 Tab PO QHS 09/20/17 Reported Tramadol Hcl 50 Mg Tablet 50 Mg PO DAILY PRN 09/20/17 Reported Hydralazine Hcl 20 Mg/1 Ml Vial 20 Mg IJ 09/20/17 Reported Gabapentin (Gabapentin) 300 Mg Capsule 300 Mg PO TID 09/20/17 Reported Acidophilus (Lactobacillus Acidophilus) 1 Each Capsule 1 Each PO 09/20/17 Reported Atorvastatin Calcium 10 Mg Tablet 1 Tab PO DAILY 09/20/17 Reported Vitamin C (Ascorbic Acid) 500 Mg Tablet.er 500 Mg PO 09/20/17 Reported Aspirin 325 Mg Tablet 1 Tab PO DAILY 09/20/17 Reported Colace (Docusate Sodium) 100 Mg Capsule 1 Cap PO BID 09/20/17 Reported Magnesium Oxide 400 Mg Tablet 1 Tab PO DAILY 09/20/17 Reported Multivitamins (Multivitamin) 1 Each Tablet 1 Tab PO DAILY 09/20/17 Reported NICODERM CQ 14mg (Nicotine) 1 Each Patch.td24 1 Patch TP DAILY 09/20/17 Reported Miralax (Polyethylene Glycol 3350) 17 Gm Powd.pack 1 Packet PO DAILY 09/20/17 Reported Albuterol Sulfate Neb Soln (Albuterol Sulfate) 0.63 Mg/3 Ml Vial.neb 1 Vial NEB QID 09/20/17 Reported Prednisone 20 Mg Tablet 1 Tab PO DAILY 09/20/17 Reported Percocet 5-325 Mg Tablet (Oxycodone/Acetaminophen) 1 Each Tablet 1 Tab PO BID 3 07/31/17 Rx Seroquel (Quetiapine Fumarate) 25 Mg Tablet 1 Tab PO QHS 10/21/16 Reported Hydrochlorothiazide Tablet (Hydrochlorothiazide) 12.5 Mg Tablet 1 Tab PO QHS 10/21/16 Reported Lexapro (Escitalopram Oxalate) 20 Mg Tablet 1 Tab PO QHS 10/21/16 Reported Hydrocodone-Apap 10-325 (Hydrocodone Bit/Acetaminophen) 1 Each Tablet 1 Tab PO PRN Q4HRS 10/21/16 Reported Oxycontin (Oxycodone HCl) 10 Mg Tab.er.12h 10 Mg PO BID 10/21/16 Reported Impression . IMPRESSION: 1. Acute hypoxemic respiratory failure secondary to acute diastolic congestive heart failure, non-ST elevation myocardial infarction/SEPSIS 2. Abnormal chest x-ray/CHF PNEUMONIA 3. Acute diastolic congestive heart failure. 4. Chronic obstructive pulmonary disease with mild acute exacerbation. 5. Acute bronchitis/ASPIRATION PNEUMONIA 6. Smoker. 7. Leukocytosis. 8. History of cerebrovascular accident. 9. hypotension 10. NSTEMI PER CARD 11. ACUTE RENAL FAILURE CXR 02/14 ET tube tip terminates approximately 4 cm above the sohan. Right IJ vascular catheter tip projects over the distal SVC. Enteric tube extends beyond the diaphragm tip is not visualized. Cardiomediastinal silhouette is stable. Left lung base parenchymal opacities are also stable. Patchy medial right lung base opacities are also grossly stable. No definite pleural effusion. No pneumothorax. Electronically signed by: Onur Valencia MD (02/13/2018 5:23 PM) [facility] Plan . WILL USE PS DURING DAY WEAN OFF PRESSORS FULL SUPPORT FOR NOW D/W PAT PALLIATIVE CARE I WOULD FAVOR D/C SUPPORT AND ALLOW NATURAL IT IS MY UNDERSTANDING THAT PT DID NOT WANT TO BE INTUBATED IN FIRST PLACE ANITBXN PER ID D/W DR DAVALOS FOLLOW CARD INPUT ABG AND CXR NOTED HEPARIN STARTED ON continue PS Palliative care to meet with family I would favor D/C support and allow natural off pressors on Versed/Fentanyl JUDE LAMAR MD Feb 18, 2018 08:50
[2018-02-18] MEDS: MAGNESIUM HYDROXIDE 2,400 MG/30 ML ORAL.SUSP. PO SCH (08:53)
[2018-02-18] MEDS: BUDESONIDE 0.5 MG/2 ML NEBU. NEB SCH ×2 (09:42→19:59)
[2018-02-18] MEDS: IPRATROPIUM BROMIDE 0.5 MG/2.5 ML NEBU. NEB SCH ×4 (09:42→19:59)
--- NOTE | 2018-02-18 10:28 | PDOC ---
PROGRESS NOTES Chief Complaint Chief Complaint Acute hypoxic respiratory failure NOW IPPV (02/09/18), Spontaneous respiration on 40% O2, failed - returned to Ventilator assisted breathing AC22/450/50% 5 peep COPD, Smoker - 1 ppday? Severe sepsis - with respiratory failure likely 2/2 pneumonia/bronchitis, fever 102.6F, leukocytosis, tachycardia, Acute diastolic heart failure - BNP of greater than 35,000. diuresis for pulmonary congestion PAD - with carotid, AAA, renovascular disease - cont asa plavix NSTEMI - elevated troponin at 17. Paroxysmal atrial fibrillation. Now in sinus rhythm. on coumadin, INR subtherapeutic, History of a previous CVA - Acute metabolic encephalopathy secondary to multifactorial see above ANGELICA, [facility] - new (02/10/18) - Dialysis began 02/13/18, patient tolerating well History of Present Illness History of Present Illness pt. was seen and examined in ICU not Sedated with fentanyl and versed currently on wean trial. only breathing 6 breaths per minute spontaneously spoke with nursing staff and daughter. Discussed palliative care as the patient made it clear she wished not to be intubated when I admitted her over a week ago. A/P: Acute hypoxic respiratory failure - known h/o COPD. BIPAP and nebs helping. She has a fever and leukocytosis, may have underlying pneumonia or influenza, will treat broad spectrum. pulmonary/critical care consultation appreciated Severe sepsis - with respiratory failure likely 2/2 pneumonia/bronchitis, fever 102.6F, leukocytosis, tachycardia, broad spectrum early antibiotics. Acute diastolic heart failure - BNP of greater than 35,000. diuresis for pulmonary congestion PAD - with carotid, AAA, renovascular disease she definitely has CAD as well. Cont ASA, plavix NSTEMI - elevated troponin at 17. 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 Now in sinus rhythm. on coumadin, INR subtherapeutic, needs heparin gtt for NSTEMI anyway, will keep this. History of a previous CVA - now s/p bilateral CEA and treating afib, will keep on heparin, high intensity statin, ASA primary prevention Vitals Vitals Vital Signs Date Time Temp Pulse Resp B/P (MAP) Pulse Ox O2 Delivery O2 Flow Rate FiO2 02/18/18 10:00 88 10 155/83 (107) 99 02/18/18 09:42 Ventilator 02/18/18 08:40 98.2 98.2 Physical Exam Physical Exam GENERAL: Intubated and sedated HEENT: Pupils small, ETT, OGT LUNGS: Clear to auscultation, anteriorly HEART: S1, S2. ABDOMEN: Obese, soft. No grimace or guarding to palpation. Bowel sounds present. rectal tube GENITOURINARY: Indwelling Forman in place. EXTREMITIES: Generalized edema SKIN: Warm without rash. NEUROLOGIC: Unresponsive/sedated RIJ and HDC clean General: Other (intubated on a ventilator) Heart: Regular rate Lungs: Crackles Abdomen: Normal bowel sounds Extremities: No clubbing, No cyanosis, No edema, Normal pulses, No tenderness/ swelling Skin: No rashes, No breakdown, No significant lesion Labs LABS Laboratory Tests Test 02/17/18 10:50 02/18/18 06:05 White Blood Count 14.5 x10^3/uL (4.0-11.0) 12.7 x10^3/uL (4.0-11.0) Red Blood Count 2.35 x10^6/uL (3.50-5.40) 2.13 x10^6/uL (3.50-5.40) Hemoglobin 7.2 g/dL (12.0-15.5) 6.5 g/dL (12.0-15.5) Hematocrit 21.1 % (36.0-47.0) 19.0 % (36.0-47.0) Mean Corpuscular Volume 90 fL (79-100) 89 fL (79-100) Mean Corpuscular Hemoglobin 31 pg (25-35) 31 pg (25-35) Mean Corpuscular Hemoglobin Concent 34 g/dL (31-37) 34 g/dL (31-37) Red Cell Distribution Width 16.2 % (11.5-14.5) 15.9 % (11.5-14.5) Platelet Count 471 x10^3/uL (140-400) 517 x10^3/uL (140-400) Neutrophils (%) (Auto) 95 % (31-73) 95 % (31-73) Lymphocytes (%) (Auto) 3 % (24-48) 3 % (24-48) Monocytes (%) (Auto) 2 % (0-9) 2 % (0-9) Eosinophils (%) (Auto) 0 % (0-3) 0 % (0-3) Basophils (%) (Auto) 0 % (0-3) 0 % (0-3) Neutrophils # (Auto) 13.8 x10^3uL (1.8-7.7) 12.0 x10^3uL (1.8-7.7) Lymphocytes # (Auto) 0.4 x10^3/uL (1.0-4.8) 0.3 x10^3/uL (1.0-4.8) Monocytes # (Auto) 0.3 x10^3/uL (0.0-1.1) 0.3 x10^3/uL (0.0-1.1) Eosinophils # (Auto) 0.0 x10^3/uL (0.0-0.7) 0.0 x10^3/uL (0.0-0.7) Basophils # (Auto) 0.0 x10^3/uL (0.0-0.2) 0.0 x10^3/uL (0.0-0.2) Sodium Level 139 mmol/L (136-145) 140 mmol/L (136-145) Potassium Level 4.4 mmol/L (3.5-5.1) 4.9 mmol/L (3.5-5.1) Chloride Level 101 mmol/L (98-107) 102 mmol/L (98-107) Carbon Dioxide Level 28 mmol/L (21-32) 25 mmol/L (21-32) Anion Gap 10 (6-14) 13 (6-14) Blood Urea Nitrogen 88 mg/dL (7-20) 111 mg/dL (7-20) Creatinine 4.3 mg/dL (0.6-1.0) 5.3 mg/dL (0.6-1.0) Estimated GFR (Cockcroft-Gault) 10.3 8.1 BUN/Creatinine Ratio 20 (6-20) Glucose Level 250 mg/dL (70-99) 200 mg/dL (70-99) Calcium Level 7.3 mg/dL (8.5-10.1) 7.4 mg/dL (8.5-10.1) Total Bilirubin 0.3 mg/dL (0.2-1.0) Aspartate Amino Transf (AST/SGOT) 90 U/L (15-37) Alanine Aminotransferase (ALT/SGPT) 58 U/L (14-59) Alkaline Phosphatase 212 U/L (46-116) Total Protein 5.5 g/dL (6.4-8.2) Albumin 2.0 g/dL (3.4-5.0) Albumin/Globulin Ratio 0.6 (1.0-1.7) Assessment and Plan Assessmemt and Plan Problems Medical Problems: (1) CHF (congestive heart failure) Status: Acute (2) Elevated troponin Status: Acute (3) Heart failure Status: Acute (4) Respiratory failure Status: Acute (5) Shortness of breath Status: Acute Comment Review of Relevant I have reviewed the following items pat (where applicable) has been applied. Labs Laboratory Tests Test 02/16/18 18:00 02/17/18 10:50 02/18/18 06:05 White Blood Count 14.5 x10^3/uL (4.0-11.0) 14.5 x10^3/uL (4.0-11.0) 12.7 x10^3/uL (4.0-11.0) Red Blood Count 2.40 x10^6/uL (3.50-5.40) 2.35 x10^6/uL (3.50-5.40) 2.13 x10^6/uL (3.50-5.40) Hemoglobin 7.5 g/dL (12.0-15.5) 7.2 g/dL (12.0-15.5) 6.5 g/dL (12.0-15.5) Hematocrit 21.5 % (36.0-47.0) 21.1 % (36.0-47.0) 19.0 % (36.0-47.0) Mean Corpuscular Volume 90 fL (79-100) 90 fL (79-100) 89 fL (79-100) Mean Corpuscular Hemoglobin 31 pg (25-35) 31 pg (25-35) 31 pg (25-35) Mean Corpuscular Hemoglobin Concent 35 g/dL (31-37) 34 g/dL (31-37) 34 g/dL (31-37) Red Cell Distribution Width 15.8 % (11.5-14.5) 16.2 % (11.5-14.5) 15.9 % (11.5-14.5) Platelet Count 366 x10^3/uL (140-400) 471 x10^3/uL (140-400) 517 x10^3/uL (140-400) Neutrophils (%) (Auto) 95 % (31-73) 95 % (31-73) Lymphocytes (%) (Auto) 3 % (24-48) 3 % (24-48) Monocytes (%) (Auto) 2 % (0-9) 2 % (0-9) Eosinophils (%) (Auto) 0 % (0-3) 0 % (0-3) Basophils (%) (Auto) 0 % (0-3) 0 % (0-3) Neutrophils # (Auto) 13.8 x10^3uL (1.8-7.7) 12.0 x10^3uL (1.8-7.7) Lymphocytes # (Auto) 0.4 x10^3/uL (1.0-4.8) 0.3 x10^3/uL (1.0-4.8) Monocytes # (Auto) 0.3 x10^3/uL (0.0-1.1) 0.3 x10^3/uL (0.0-1.1) Eosinophils # (Auto) 0.0 x10^3/uL (0.0-0.7) 0.0 x10^3/uL (0.0-0.7) Basophils # (Auto) 0.0 x10^3/uL (0.0-0.2) 0.0 x10^3/uL (0.0-0.2) Sodium Level 139 mmol/L (136-145) 140 mmol/L (136-145) Potassium Level 4.4 mmol/L (3.5-5.1) 4.9 mmol/L (3.5-5.1) Chloride Level 101 mmol/L (98-107) 102 mmol/L (98-107) Carbon Dioxide Level 28 mmol/L (21-32) 25 mmol/L (21-32) Anion Gap 10 (6-14) 13 (6-14) Blood Urea Nitrogen 88 mg/dL (7-20) 111 mg/dL (7-20) Creatinine 4.3 mg/dL (0.6-1.0) 5.3 mg/dL (0.6-1.0) Estimated GFR (Cockcroft-Gault) 10.3 8.1 BUN/Creatinine Ratio 20 (6-20) Glucose Level 250 mg/dL (70-99) 200 mg/dL (70-99) Calcium Level 7.3 mg/dL (8.5-10.1) 7.4 mg/dL (8.5-10.1) Total Bilirubin 0.3 mg/dL (0.2-1.0) Aspartate Amino Transf (AST/SGOT) 90 U/L (15-37) Alanine Aminotransferase (ALT/SGPT) 58 U/L (14-59) Alkaline Phosphatase 212 U/L (46-116) Total Protein 5.5 g/dL (6.4-8.2) Albumin 2.0 g/dL (3.4-5.0) Albumin/Globulin Ratio 0.6 (1.0-1.7) Laboratory Tests Test 02/17/18 10:50 02/18/18 06:05 White Blood Count 14.5 x10^3/uL (4.0-11.0) 12.7 x10^3/uL (4.0-11.0) Red Blood Count 2.35 x10^6/uL (3.50-5.40) 2.13 x10^6/uL (3.50-5.40) Hemoglobin 7.2 g/dL (12.0-15.5) 6.5 g/dL (12.0-15.5) Hematocrit 21.1 % (36.0-47.0) 19.0 % (36.0-47.0) Mean Corpuscular Volume 90 fL (79-100) 89 fL (79-100) Mean Corpuscular Hemoglobin 31 pg (25-35) 31 pg (25-35) Mean Corpuscular Hemoglobin Concent 34 g/dL (31-37) 34 g/dL (31-37) Red Cell Distribution Width 16.2 % (11.5-14.5) 15.9 % (11.5-14.5) Platelet Count 471 x10^3/uL (140-400) 517 x10^3/uL (140-400) Neutrophils (%) (Auto) 95 % (31-73) 95 % (31-73) Lymphocytes (%) (Auto) 3 % (24-48) 3 % (24-48) Monocytes (%) (Auto) 2 % (0-9) 2 % (0-9) Eosinophils (%) (Auto) 0 % (0-3) 0 % (0-3) Basophils (%) (Auto) 0 % (0-3) 0 % (0-3) Neutrophils # (Auto) 13.8 x10^3uL (1.8-7.7) 12.0 x10^3uL (1.8-7.7) Lymphocytes # (Auto) 0.4 x10^3/uL (1.0-4.8) 0.3 x10^3/uL (1.0-4.8) Monocytes # (Auto) 0.3 x10^3/uL (0.0-1.1) 0.3 x10^3/uL (0.0-1.1) Eosinophils # (Auto) 0.0 x10^3/uL (0.0-0.7) 0.0 x10^3/uL (0.0-0.7) Basophils # (Auto) 0.0 x10^3/uL (0.0-0.2) 0.0 x10^3/uL (0.0-0.2) Sodium Level 139 mmol/L (136-145) 140 mmol/L (136-145) Potassium Level 4.4 mmol/L (3.5-5.1) 4.9 mmol/L (3.5-5.1) Chloride Level 101 mmol/L (98-107) 102 mmol/L (98-107) Carbon Dioxide Level 28 mmol/L (21-32) 25 mmol/L (21-32) Anion Gap 10 (6-14) 13 (6-14) Blood Urea Nitrogen 88 mg/dL (7-20) 111 mg/dL (7-20) Creatinine 4.3 mg/dL (0.6-1.0) 5.3 mg/dL (0.6-1.0) Estimated GFR (Cockcroft-Gault) 10.3 8.1 BUN/Creatinine Ratio 20 (6-20) Glucose Level 250 mg/dL (70-99) 200 mg/dL (70-99) Calcium Level 7.3 mg/dL (8.5-10.1) 7.4 mg/dL (8.5-10.1) Total Bilirubin 0.3 mg/dL (0.2-1.0) Aspartate Amino Transf (AST/SGOT) 90 U/L (15-37) Alanine Aminotransferase (ALT/SGPT) 58 U/L (14-59) Alkaline Phosphatase 212 U/L (46-116) Total Protein 5.5 g/dL (6.4-8.2) Albumin 2.0 g/dL (3.4-5.0) Albumin/Globulin Ratio 0.6 (1.0-1.7) Microbiology 02/12/18 Blood Culture - Final, Complete NO GROWTH AFTER 5 DAYS 02/10/18 - Final, Complete 02/10/18 - Final, Complete 02/10/18 - Final, Complete 02/10/18 Gram Stain Evaluation - Final, Complete 02/10/18 Sputum Culture - Final, Complete 02/10/18 Sputum Result 1 - Final, Complete 02/13/18 Urine Culture - Final, Complete 02/13/18 Urine Culture Result 1 (JESSICA) - Final, Complete Medications Current Medications Albuterol/ Ipratropium (Duoneb) 3 ml 1X ONCE NEB Last administered on at 17:14; Start 02/08/18 at 16:00; Stop 02/08/18 at 16:01; Status DC Vancomycin HCl (Vanco Per Pharmacy) 1 each PRN DAILY PRN MC SEE COMMENTS Last administered on 02/09/18at 08:59; Start 02/08/18 at 16:15; Stop 02/10/18 at 09 :07; Status DC Piperacillin Sod/ Tazobactam Sod (Zosyn Per Pharmacy) 1 each PRN DAILY PRN MC SEE COMMENTS; Start 02/08/18 at 16:15; Stop 02/12/18 at 07:24; Status DC Vancomycin HCl 1.75 gm/Sodium Chloride 500 ml @ 250 mls/hr 1X ONCE IV Last administered on 02/08/18at 16:36; Start 02/08/18 at 17:00; Stop 02/08/18 at 18 :59; Status DC Piperacillin Sod/ Tazobactam Sod 3.375 gm/Sodium Chloride 50 ml @ 100 mls/hr 1X ONCE IV Last administered on 02/08/18at 16:36; Start 02/08/18 at 16:30; Stop 02/08/18 at 16:59; Status DC Furosemide (Lasix) 20 mg 1X ONCE IVP Last administered on 02/08/18at 16:36; Start 02/08/18 at 16:30; Stop 02/08/18 at 16:31; Status DC Aspirin (Children'S Aspirin) 324 mg 1X ONCE PO Last administered on at 16:36; Start 02/08/18 at 16:30; Stop 02/08/18 at 16:31; Status DC Furosemide (Lasix) 20 mg 1X ONCE IVP Last administered on 02/08/18at 18:07; Start 02/08/18 at 17:00; Stop 02/08/18 at 17:01; Status DC Ondansetron HCl (Zofran) 4 mg 1X ONCE IV Last administered on 02/08/18at 17:00 ; Start 02/08/18 at 17:00; Stop 02/08/18 at 17:01; Status DC Ondansetron HCl (Zofran) 4 mg STK-MED ONCE .ROUTE ; Start 02/08/18 at 16:51; Stop 02/08/18 at 16:52; Status DC Heparin Sodium/ Dextrose 500 ml @ 0 mls/hr CONT PRN IV SEE I/O RECORD; Start 02/08/18 at 17:30; Status UNV Info (Anti-Coagulation Monitoring By Pharmacy) 1 each PRN DAILY PRN MC SEE COMMENTS Last administered on 02/11/18at 12:25; Start 02/08/18 at 17:30; Stop 02/13/18 at 09:17; Status DC Heparin Sodium/ Dextrose 500 ml @ 0 mls/hr CONT PRN IV SEE I/O RECORD Last administered on 02/12/18at 19:46; Start 02/08/18 at 17:30; Stop 02/13/18 at 08 :22; Status DC Heparin Sodium (Porcine) (Heparin Sodium) 1,800 unit PRN Q6HRS PRN IV FOR UFH LEVEL LESS THAN 0.2 Last administered on 02/08/18at 20:10; Start 02/08/18 at 17 :30; Stop 02/13/18 at 08:22; Status DC Ondansetron HCl (Zofran) 4 mg 1X PRN PRN IV NAUSEA/VOMITING; Start 02/08/18 at 18:00; Stop 02/09/18 at 09:06; Status DC Piperacillin Sod/ Tazobactam Sod 3.375 gm/Sodium Chloride 50 ml @ 100 mls/hr Q6HRS IV Last administered on 02/11/18at 05:37; Start 02/09/18 at 00:00; Stop 02/11/18 at 07:14; Status DC Vancomycin HCl 1 gm/Sodium Chloride 250 ml @ 250 mls/hr Q24H IV Last administered on 02/09/18at 16:30; Start 02/09/18 at 16:30; Stop 02/10/18 at 09 :07; Status DC Vancomycin HCl (Vancomycin Trough Level) 1 each 1X ONCE MC ; Start 02/10/18 at 16:00; Stop 02/10/18 at 16:00; Status DC Magnesium Sulfate/ Dextrose 100 ml @ 25 mls/hr 1X ONCE IV Last administered on 02/08/18at 22:03; Start 02/08/18 at 22:00; Stop 02/09/18 at 01:59; Status DC Aspirin (Radha Aspirin) 325 mg DAILY PO ; Start 02/09/18 at 09:00; Stop at 10:16; Status DC Atorvastatin Calcium (Lipitor) 10 mg HS PO ; Start 02/09/18 at 21:00; Stop at 21:00; Status DC Clonidine HCl (Catapres) 0.1 mg QHS PO Last administered on 02/08/18at 22:05; Start 02/08/18 at 22:00; Stop 02/09/18 at 10:16; Status DC Docusate Sodium (Colace) 100 mg BID PO ; Start 02/09/18 at 09:00; Stop at 10:16; Status DC Gabapentin (Neurontin) 300 mg TID PO Last administered on 02/08/18at 22:08; Start 02/08/18 at 22:20; Stop 02/09/18 at 10:16; Status DC Labetalol HCl (Normodyne Iv Push) 10 mg PRN Q2HR PRN IVP HYPERTENSION, SEE COMMENTS Last administered on 02/12/18at 15:12; Start 02/08/18 at 21:30; Stop 02/12/18 at 16:22; Status DC Lorazepam (Ativan) 1 mg PRN Q4HRS PRN IV ANXIETY / AGITATION Last administered on 02/15/18 04:02; Start 02/08/18 at 21:30 Morphine Sulfate (Morphine Sulfate) 4 mg PRN Q4HRS PRN IV PAIN Last administered on 02/09/18 19:45; Start 02/08/18 at 21:30 Acetaminophen (Tylenol Supp) 325 mg PRN Q6HRS PRN NM MILD PAIN / TEMP Last administered on 02/09/18 09:30; Start 02/09/18 at 06:45 Ipratropium Stanley (Atrovent) 0.5 mg RTQID NEB Last administered on 09:42; Start 02/09/18 at 08:00 Budesonide (Pulmicort) 0.5 mg RTBID NEB Last administered on 02/18/18 09:42; Start 02/09/18 at 08:00 Famotidine (Pepcid Vial) 20 mg QHS IVP Last administered on 02/12/18 21:56; Start 02/09/18 at 21:00; Stop 02/13/18 at 14:47; Status DC Acetaminophen (Tylenol) 500 mg PRN Q6HRS PRN PO FEVER/KUO Last administered on 02/14/18 17:23; Start 02/09/18 at 09:00 Ondansetron HCl (Zofran) 4 mg PRN Q6HRS PRN IV NAUSEA/VOMITING; Start at 09:00 Ondansetron HCl (Zofran Odt) 4 mg PRN Q6HRS PRN PO NAUSEA/VOMITING; Start at 09:00 Acetaminophen/ Hydrocodone Bitart (Lortab 10/325) 1 tab PRN Q4HRS PRN PO MODERATE PAIN; Start 02/09/18 at 09:00 Magnesium Hydroxide (Milk Of Magnesia) 400 mg DAILY PO Last administered on at 08:31; Start 02/09/18 at 09:00 Oxycodone HCl (OxyCONTIN) 10 mg BID PO ; Start 02/09/18 at 09:00; Stop at 10:16; Status DC Oxycodone/ Acetaminophen (Percocet 5/325) 1 tab BID PO ; Start 02/09/18 at 09: 00; Stop 02/09/18 at 10:16; Status DC Tramadol HCl (Ultram) 50 mg PRN DAILY PRN PO MILD PAIN; Start 02/09/18 at 09: 00 Non-Formulary Medication (Acetaminophen ) 1 tab BID PO ; Start 02/09/18 at 09: 00; Stop 02/09/18 at 09:12; Status DC Non-Formulary Medication (Albuterol Sulfate (Albuterol Sulfate Neb Soln)) 1 vial QID NEB ; Start 02/09/18 at 09:00; Stop 02/09/18 at 09:22; Status DC Citalopram Hydrobromide (CeleXA) 40 mg QHS PO ; Start 02/09/18 at 21:00; Stop 02/09/18 at 21:00; Status DC Hydrochlorothiazide (Microzide) 12.5 mg QHS PO ; Start 02/09/18 at 21:00; Stop 02/09/18 at 21:00; Status DC Non-Formulary Medication (Magnesium Oxide ) 1 tab DAILY PO ; Start 02/09/18 at 09:00; Stop 02/09/18 at 09:14; Status DC Non-Formulary Medication (Multivitamin (Multivitamins)) 1 tab DAILY PO ; Start 02/09/18 at 09:00; Stop 02/09/18 at 09:14; Status DC Nicotine (Nicoderm Cq 14mg) 1 patch DAILY TD Last administered on 02/18/18at 08 :50; Start 02/09/18 at 10:00 Ondansetron HCl (Zofran Odt) 4 mg Q6HRS PO Last administered on 02/14/18at 05: 52; Start 02/09/18 at 12:00; Stop 02/14/18 at 15:05; Status DC Non-Formulary Medication (Polyethylene Glycol 3350 (Miralax)) 1 packet DAILY PO ; Start 02/09/18 at 09:00; Stop 02/09/18 at 09:17; Status DC Quetiapine Fumarate (SEROquel) 25 mg QHS PO ; Start 02/09/18 at 21:00; Stop at 21:00; Status DC Labetalol HCl (Normodyne Iv Push) 10 mg PRN Q2HR PRN IVP HYPERTENSION, SEE COMMENTS; Start 02/09/18 at 09:00; Stop 02/09/18 at 09:06; Status DC Acetaminophen (Tylenol) 500 mg BID PO ; Start 02/09/18 at 10:00; Stop at 10:16; Status DC Magnesium Oxide (Magnesium Oxide) 400 mg DAILY PO Last administered on at 08:50; Start 02/09/18 at 10:00 Multivitamins (Thera M Plus) 1 tab DAILY PO ; Start 02/09/18 at 10:00; Stop at 10:16; Status DC Polyethylene Glycol (miraLAX PACKET) 17 gm DAILY PO ; Start 02/09/18 at 10:00; Stop 02/09/18 at 10:16; Status DC Albuterol Sulfate (Ventolin Neb Soln) 2.5 mg RTQID NEB Last administered on at 10:45; Start 02/09/18 at 12:00; Stop 02/15/18 at 18:59; Status DC Furosemide (Lasix) 60 mg 1X ONCE IVP Last administered on 02/09/18at 20:16; Start 02/09/18 at 20:00; Stop 02/09/18 at 20:01; Status DC Rocuronium Stanley (Zemuron) 50 mg STK-MED ONCE .ROUTE ; Start 02/09/18 at 20: 23; Stop 02/09/18 at 20:24; Status DC Fentanyl Citrate 30 ml @ 0 mls/hr CONT PRN IV SEE PROTOCOL Last administered on 02/18/18at 08:44; Start 02/09/18 at 20:30 Propofol 100 ml @ 0 mls/hr CONT PRN IV SEE PROTOCOL Last administered on at 14:09; Start 02/09/18 at 20:30 Midazolam HCl 100 ml @ 5 mls/hr CONT PRN IV SEE I/O RECORD Last administered on 02/12/18at 03:38; Start 02/09/18 at 22:00; Stop 02/13/18 at 17:22; Status DC Norepinephrine Bitartrate 250 ml @ As Directed STK-MED ONCE IV ; Start at 02:33; Stop 02/10/18 at 02:35; Status DC Norepinephrine Bitartrate 250 ml @ 1.875 mls/ hr CONT PRN IV SEE I/O RECORD Last administered on 02/17/18at 04:35; Start 02/10/18 at 02:45 Methylprednisolone Sodium Succinate (SOLU-Medrol 40MG VIAL) 40 mg Q12HR IV Last administered on 02/18/18at 08:49; Start 02/10/18 at 09:00 Piperacillin Sod/ Tazobactam Sod 2.25 gm/Sodium Chloride 50 ml @ 100 mls/hr Q6HRS IV Last administered on 02/12/18at 05:47; Start 02/11/18 at 12:00; Stop 02/12/18 at 07:24; Status DC Propofol (Diprivan) 200 mg STK-MED ONCE IV ; Start 02/09/18 at 07:00; Stop at 07:43; Status DC Succinylcholine Chloride (Anectine) 200 mg STK-MED ONCE .ROUTE ; Start at 07:00; Stop 02/11/18 at 07:43; Status DC Phenylephrine HCl (PHENYLEPHRINE in 0.9% NACL PF) 1 mg STK-MED ONCE IV ; Start 02/09/18 at 07:00; Stop 02/11/18 at 07:43; Status DC Ephedrine Sulfate (ePHEDrine PF IN SALINE SYRINGE) 50 mg STK-MED ONCE IV ; Start 02/09/18 at 07:00; Stop 02/11/18 at 07:43; Status DC Rocuronium Stanley (Zemuron) 50 mg STK-MED ONCE .ROUTE ; Start 02/09/18 at 21: 00; Stop 02/11/18 at 08:22; Status DC Linezolid/Dextrose 300 ml @ 300 mls/hr Q12HR IV Last administered on at 08:32; Start 02/12/18 at 09:00; Stop 02/15/18 at 10:31; Status DC Micafungin Sodium 100 mg/Dextrose 100 ml @ 100 mls/hr Q24H IV Last administered on 02/15/18at 08:34; Start 02/12/18 at 10:00; Stop 02/15/18 at 10 :31; Status DC Cefepime HCl (Maxipime) 1 gm Q12HR IVP Last administered on 02/13/18at 08:19; Start 02/12/18 at 09:00; Stop 02/13/18 at 10:56; Status DC Atorvastatin Calcium (Lipitor) 10 mg QHS PO Last administered on 02/17/18at 19: 56; Start 02/12/18 at 21:00 Labetalol HCl (Normodyne Iv Push) 20 mg PRN Q2HR PRN IVP HYPERTENSION, SEE COMMENTS Last administered on 02/13/18at 05:34; Start 02/12/18 at 16:15 Aspirin (Children'S Aspirin) 81 mg DAILYWBKFT PO Last administered on at 08:50; Start 02/12/18 at 16:15 Metoprolol Tartrate (Lopressor) 25 mg BID PO Last administered on 02/18/18at 08 :50; Start 02/13/18 at 11:00 Cefepime HCl (Maxipime) 1 gm QHS IVP ; Start 02/13/18 at 21:00; Stop 02/13/18 at 21:00; Status DC Lidocaine/Sodium Bicarbonate (Buffered Lidocaine 1%) 3 ml STK-MED ONCE .ROUTE ; Start 02/13/18 at 13:32; Stop 02/13/18 at 13:33; Status DC Heparin Sodium (Porcine) (Heparin Sodium) 10,000 unit STK-MED ONCE .ROUTE ; Start 02/13/18 at 13:32; Stop 02/13/18 at 13:33; Status DC Midazolam HCl (Versed) 5 mg STK-MED ONCE .ROUTE ; Start 02/13/18 at 14:04; Stop 02/13/18 at 14:05; Status DC Midazolam HCl (Versed) 5 mg 1X ONCE IV Last administered on 02/13/18at 14:10; Start 02/13/18 at 14:15; Stop 02/13/18 at 14:16; Status DC Lidocaine/Sodium Bicarbonate (Buffered Lidocaine 1%) 4 ml 1X ONCE INJ Last administered on 02/13/18at 14:57; Start 02/13/18 at 14:45; Stop 02/13/18 at 14 :52; Status DC Heparin Sodium (Porcine) (Heparin Sodium) 2,200 unit 1X ONCE INT CAT Last administered on 02/13/18at 15:02; Start 02/13/18 at 14:45; Stop 02/13/18 at 14 :52; Status DC Pantoprazole Sodium (PROTONIX VIAL for IV PUSH) 40 mg BIDAC IVP Last administered on 02/18/18at 08:49; Start 02/13/18 at 16:30 Heparin Sodium (Porcine) (Heparin Sodium) 2,500 unit 1X ONCE INT CAT ; Start 02/13/18 at 15:00; Stop 02/13/18 at 15:03; Status DC Meropenem 500 mg/ Sodium Chloride 50 ml @ 100 mls/hr Q24H IV Last administered on 02/17/18at 16:29; Start 02/13/18 at 16:00 Midazolam HCl 100 ml @ 5 mls/hr CONT PRN IV SEE I/O RECORD Last administered on 02/17/18at 18:10; Start 02/13/18 at 15:15 Midazolam HCl (Versed) 5 mg STK-MED ONCE .ROUTE ; Start 02/13/18 at 15:15; Stop 02/13/18 at 15:16; Status DC Clopidogrel Bisulfate (Plavix) 75 mg [id number] PO Last administered on at 08:50; Start 02/13/18 at 16:00 Sodium Chloride 1,000 ml @ 1,000 mls/hr Q1H PRN IV hypotension; Start at 19:27; Stop 02/14/18 at 01:26; Status DC Albumin Human 200 ml @ 200 mls/hr 1X PRN PRN IV Hypotension; Start 02/13/18 at 19:30; Stop 02/14/18 at 01:29; Status DC Sodium Chloride 1,000 ml @ 400 mls/hr Q2H30M PRN IV PATENCY; Start 02/13/18 at 19:27; Stop 02/14/18 at 07:26; Status DC Info (PHARMACY MONITORING -- do not chart) 1 each PRN DAILY PRN MC SEE COMMENTS ; Start 02/13/18 at 19:30; Stop 02/16/18 at 15:59; Status DC Info (PHARMACY MONITORING -- do not chart) 1 each PRN DAILY PRN MC SEE COMMENTS ; Start 02/13/18 at 19:30; Status UNV Sodium Chloride 1,000 ml @ 1,000 mls/hr Q1H PRN IV hypotension; Start at 08:16; Stop 02/14/18 at 14:15; Status DC Sodium Chloride 1,000 ml @ 400 mls/hr Q2H30M PRN IV PATENCY; Start 02/14/18 at 08:16; Stop 02/14/18 at 20:15; Status DC Info (PHARMACY MONITORING -- do not chart) 1 each PRN DAILY PRN MC SEE COMMENTS ; Start 02/14/18 at 08:30; Status UNV Midazolam HCl (Versed) 5 mg STK-MED ONCE .ROUTE ; Start 02/13/18 at 15:30; Stop 02/14/18 at 09:00; Status DC Albuterol Sulfate (Ventolin Neb Soln) 2.5 mg PRN Q4HRS PRN NEB SHORTNESS OF BREATH; Start 02/15/18 at 19:00 Albumin Human 200 ml @ 200 mls/hr 1X PRN PRN IV Hypotension; Start 02/16/18 at 10:00; Stop 02/16/18 at 15:59; Status DC Sodium Chloride (Normal Saline Flush) 10 ml 1X PRN PRN IV AP catheter pack; Start 02/16/18 at 10:00; Stop 02/17/18 at 09:59; Status DC Sodium Chloride (Normal Saline Flush) 10 ml 1X PRN PRN IV TAKE UP SUPERVISOR catheter pack; Start 02/16/18 at 10:00; Stop 02/17/18 at 09:59; Status DC Info (PHARMACY MONITORING -- do not chart) 1 each PRN DAILY PRN MC SEE COMMENTS ; Start 02/16/18 at 12:45 Info (PHARMACY MONITORING -- do not chart) 1 each PRN DAILY PRN MC SEE COMMENTS ; Start 02/16/18 at 12:45; Status UNV Furosemide (Lasix) 40 mg 1X ONCE IVP Last administered on 02/16/18at 23:42; Start 02/16/18 at 23:45; Stop 02/16/18 at 23:46; Status DC Multi-Ingred Cream/Lotion/Oil/ Oint (Artificial Tears Eye Ointment) 1 benjamin PRN Q1HR PRN OU DRY EYE; Start 02/17/18 at 07:45 Active Scripts Active Percocet 5-325 Mg Tablet (Oxycodone/Acetaminophen) 1 Each Tablet 1 Tab PO BID 3 Days Reported Zofran (Ondansetron Hcl) 4 Mg Tablet 1 Tab PO Q6HRS Milk Of Magnesia (Magnesium Hydroxide) 400 Mg/5 Ml Oral.susp 400 Mg PO Acetaminophen 500 Mg Tablet 1 Tab PO BID Clonidine Hcl 0.1 Mg Tablet 1 Tab PO QHS Tramadol Hcl 50 Mg Tablet 50 Mg PO DAILY PRN Hydralazine Hcl 20 Mg/1 Ml Vial 20 Mg IJ Gabapentin (Gabapentin) 300 Mg Capsule 300 Mg PO TID Acidophilus (Lactobacillus Acidophilus) 1 Each Capsule 1 Each PO Atorvastatin Calcium 10 Mg Tablet 1 Tab PO DAILY Vitamin C (Ascorbic Acid) 500 Mg Tablet.er 500 Mg PO Aspirin 325 Mg Tablet 1 Tab PO DAILY Colace (Docusate Sodium) 100 Mg Capsule 1 Cap PO BID Magnesium Oxide 400 Mg Tablet 1 Tab PO DAILY Multivitamins (Multivitamin) 1 Each Tablet 1 Tab PO DAILY NICODERM CQ 14mg (Nicotine) 1 Each Patch.td24 1 Patch TP DAILY Miralax (Polyethylene Glycol 3350) 17 Gm Powd.pack 1 Packet PO DAILY Albuterol Sulfate Neb Soln (Albuterol Sulfate) 0.63 Mg/3 Ml Vial.neb 1 Vial NEB QID Prednisone 20 Mg Tablet 1 Tab PO DAILY Seroquel (Quetiapine Fumarate) 25 Mg Tablet 1 Tab PO QHS Hydrochlorothiazide Tablet (Hydrochlorothiazide) 12.5 Mg Tablet 1 Tab PO QHS Lexapro (Escitalopram Oxalate) 20 Mg Tablet 1 Tab PO QHS Hydrocodone-Apap 10-325 (Hydrocodone Bit/Acetaminophen) 1 Each Tablet 1 Tab PO PRN Q4HRS Oxycontin (Oxycodone HCl) 10 Mg Tab.er.12h 10 Mg PO BID Vitals/I & O Vital Sign - Last 24 Hours 02/17/18 02/17/18 02/17/18 02/17/18 11:00 11:12 12:00 12:00 Temp 97.4 97.4 Pulse 95 97 Resp 12 9 B/P (MAP) 140/77 (98) 131/72 (91) Pulse Ox 95 93 97 O2 Delivery Ventilator Mechanical Ventilator 02/17/18 02/17/18 02/17/18 02/17/18 13:00 14:00 15:00 15:58 Pulse 104 100 91 Resp 14 14 14 B/P (MAP) 117/67 (84) 143/79 (100) 96/58 (71) Pulse Ox 98 92 97 95 O2 Delivery Ventilator 02/17/18 02/17/18 02/17/18 02/17/18 16:00 16:00 17:00 17:49 Temp 97.6 97.6 Pulse 95 100 Resp 11 14 B/P (MAP) 166/88 (114) 145/80 (101) Pulse Ox 95 100 95 O2 Delivery Mechanical Ventilator Ventilator 02/17/18 02/17/18 02/17/18 02/17/18 18:00 19:00 19:52 19:55 Pulse 96 102 Resp 14 14 B/P (MAP) 95/57 (70) 118/61 (80) Pulse Ox 96 96 97 97 O2 Delivery Ventilator Ventilator 02/17/18 02/17/18 02/17/18 02/17/18 20:00 20:00 20:15 21:00 Temp 98.5 98.5 Pulse 110 102 90 Resp 19 14 B/P (MAP) 155/76 (102) 145/71 (95) 109/59 Pulse Ox 98 96 O2 Delivery Mechanical Ventilator 02/17/18 02/17/18 02/17/18 02/17/18 21:00 21:49 22:00 23:00 Pulse 108 115 106 Resp 17 17 17 B/P (MAP) 163/81 (108) 152/102 (119) 150/78 (102) Pulse Ox 96 96 96 97 02/17/18 02/18/18 02/18/18 02/18/18 23:49 00:00 00:00 01:00 Temp 98.5 98.5 Pulse 100 108 Resp 19 12 B/P (MAP) 114/68 (83) 134/67 (89) Pulse Ox 97 98 97 O2 Delivery Ventilator Mechanical Ventilator 02/18/18 02/18/18 02/18/18 02/18/18 02:00 02:05 03:00 03:13 Pulse 98 98 Resp 16 12 B/P (MAP) 94/56 (69) 104/64 (77) Pulse Ox 97 98 99 98 O2 Delivery Ventilator 02/18/18 02/18/18 02/18/18 02/18/18 03:42 03:43 04:00 04:00 Temp 99.0 99.0 Pulse 94 Resp 11 B/P (MAP) 94/57 (69) Pulse Ox 100 100 98 O2 Delivery Ventilator Ventilator Mechanical Ventilator 02/18/18 02/18/18 02/18/18 02/18/18 05:00 05:40 06:00 07:00 Temp 98.7 98.7 Pulse 112 99 107 Resp 15 15 15 B/P (MAP) 170/87 (114) 142/71 (94) 103/59 (74) Pulse Ox 95 100 95 92 O2 Delivery Ventilator 02/18/18 02/18/18 02/18/18 02/18/18 08:00 08:00 08:26 08:40 Temp 98.2 98.2 98.2 98.2 Pulse 115 11 96 Resp 15 10 12 B/P (MAP) 179/87 (117) 179/87 172/81 Pulse Ox 94 O2 Delivery Mechanical Ventilator 02/18/18 02/18/18 02/18/18 02/18/18 08:44 08:50 09:00 09:42 Pulse 113 108 Resp 10 10 B/P (MAP) 172/81 167/88 (114) Pulse Ox 96 94 98 O2 Delivery Ventilator Ventilator 02/18/18 10:00 Pulse 88 Resp 10 B/P (MAP) 155/83 (107) Pulse Ox 99 Intake and Output 02/17/18 02/17/18 02/18/18 15:01 23:01 07:01 Intake Total 310 ml 1665.20 ml 450.3 ml Output Total 145 ml 55 ml 100 ml Balance 165 ml 1610.20 ml 350.3 ml Nutrition Consultation Dietary Evaluation: Recommendations by RD: Increase Calorie Intake Comments: Continue TF per current order: Jevity 1.5@goal rate 45 ml/hr w/150 ml water flushes q4 hrs or flushes per MD Expected Outcomes/Goals: TF for nutrition needs while pt remains intubated - met, goal ongoing Interpretation of weight loss: >10% in 6 months Malnutrition Findings: Body Fat Depletion (Non Severe: Mild Depletion Weight Status: Appropriate MADAN DRAKE MD Feb 18, 2018 10:28
--- NOTE | 2018-02-18 10:49 | PDOC ---
Renal-Progress Notes Subjective Notes Notes REMAINS ON THE VENT History of Present Illness Hx of present illness STABLE Vitals Vitals Vital Signs Date Time Temp Pulse Resp B/P (MAP) Pulse Ox O2 Delivery O2 Flow Rate FiO2 02/18/18 10:20 98.0 99 10 115/65 98.0 02/18/18 10:00 99 02/18/18 09:42 Ventilator Weight Weight [ ] I.O. Intake and Output Intake and Output 02/18/18 07:01 Intake Total 2425.50 ml Output Total 300 ml Balance 2125.50 ml IV Total 465.50 ml Tube Feeding 1510 ml Blood Product IV Normal Saline Flush 450 ml Output Urine Total 300 ml Labs Labs Laboratory Tests Test 02/17/18 10:50 02/18/18 06:05 White Blood Count 14.5 x10^3/uL (4.0-11.0) 12.7 x10^3/uL (4.0-11.0) Red Blood Count 2.35 x10^6/uL (3.50-5.40) 2.13 x10^6/uL (3.50-5.40) Hemoglobin 7.2 g/dL (12.0-15.5) 6.5 g/dL (12.0-15.5) Hematocrit 21.1 % (36.0-47.0) 19.0 % (36.0-47.0) Mean Corpuscular Volume 90 fL (79-100) 89 fL (79-100) Mean Corpuscular Hemoglobin 31 pg (25-35) 31 pg (25-35) Mean Corpuscular Hemoglobin Concent 34 g/dL (31-37) 34 g/dL (31-37) Red Cell Distribution Width 16.2 % (11.5-14.5) 15.9 % (11.5-14.5) Platelet Count 471 x10^3/uL (140-400) 517 x10^3/uL (140-400) Neutrophils (%) (Auto) 95 % (31-73) 95 % (31-73) Lymphocytes (%) (Auto) 3 % (24-48) 3 % (24-48) Monocytes (%) (Auto) 2 % (0-9) 2 % (0-9) Eosinophils (%) (Auto) 0 % (0-3) 0 % (0-3) Basophils (%) (Auto) 0 % (0-3) 0 % (0-3) Neutrophils # (Auto) 13.8 x10^3uL (1.8-7.7) 12.0 x10^3uL (1.8-7.7) Lymphocytes # (Auto) 0.4 x10^3/uL (1.0-4.8) 0.3 x10^3/uL (1.0-4.8) Monocytes # (Auto) 0.3 x10^3/uL (0.0-1.1) 0.3 x10^3/uL (0.0-1.1) Eosinophils # (Auto) 0.0 x10^3/uL (0.0-0.7) 0.0 x10^3/uL (0.0-0.7) Basophils # (Auto) 0.0 x10^3/uL (0.0-0.2) 0.0 x10^3/uL (0.0-0.2) Sodium Level 139 mmol/L (136-145) 140 mmol/L (136-145) Potassium Level 4.4 mmol/L (3.5-5.1) 4.9 mmol/L (3.5-5.1) Chloride Level 101 mmol/L (98-107) 102 mmol/L (98-107) Carbon Dioxide Level 28 mmol/L (21-32) 25 mmol/L (21-32) Anion Gap 10 (6-14) 13 (6-14) Blood Urea Nitrogen 88 mg/dL (7-20) 111 mg/dL (7-20) Creatinine 4.3 mg/dL (0.6-1.0) 5.3 mg/dL (0.6-1.0) Estimated GFR (Cockcroft-Gault) 10.3 8.1 BUN/Creatinine Ratio 20 (6-20) Glucose Level 250 mg/dL (70-99) 200 mg/dL (70-99) Calcium Level 7.3 mg/dL (8.5-10.1) 7.4 mg/dL (8.5-10.1) Total Bilirubin 0.3 mg/dL (0.2-1.0) Aspartate Amino Transf (AST/SGOT) 90 U/L (15-37) Alanine Aminotransferase (ALT/SGPT) 58 U/L (14-59) Alkaline Phosphatase 212 U/L (46-116) Total Protein 5.5 g/dL (6.4-8.2) Albumin 2.0 g/dL (3.4-5.0) Albumin/Globulin Ratio 0.6 (1.0-1.7) Micro Micro Microbiology 02/12/18 Blood Culture - Final, Complete NO GROWTH AFTER 5 DAYS 02/10/18 - Final, Complete 02/10/18 - Final, Complete 02/10/18 - Final, Complete 02/10/18 Gram Stain Evaluation - Final, Complete 02/10/18 Sputum Culture - Final, Complete 02/10/18 Sputum Result 1 - Final, Complete 02/13/18 Urine Culture - Final, Complete 02/13/18 Urine Culture Result 1 (JESSICA) - Final, Complete Review of Systems Constitutional: yes: unresponsive Physical Exam General Appearance: no apparent distress Respiratory: decreased breath sounds Heart: S1S2 Abdomen: soft, bowel sounds present Genitourinary: bladder flat Extremities: pulses present Neurology: other (SEDATED) Assessment Assessment IMP ANGELICA CHF - DIASTOLIC ANEMIA COPD PNEUMONIA ACUTE RESP FAILURE PLAN ANTIBIOTICS HD TODAY UF TO DW VENT SUPPORT WILL FOLLOW ARTEMIO PAYTON MD Feb 18, 2018 10:49
--- NOTE | 2018-02-18 11:42 | PDOC2 ---
PALLIATIVE CARE Palliative Care Note Palliative Care Patient remains on Vent. Fentanyl gtt. Met with daughter Shyla and brother (per phone) Dae Cárdenas Eddie) Reviewed medical condition; Acute hypoxic respiratory failure NOW IPPV (02/09/18), Dialysis began 02/13/18, patient tolerating well Spontaneous respiration on 40% O2, failed returned to Ventilator assisted breathing AC22/450/50% 5 peep Sedated with fentanyl Levophed drip (off now) Severe sepsis - with respiratory failure likely 2/2 pneumonia/bronchitis, fever 102.6F, leukocytosis, tachycardia, Acute diastolic heart failure - BNP of greater than 35,000. diuresis for pulmonary congestion PAD - with carotid, AAA, renovascular disease - cont asa plavix NSTEMI - elevated troponin at 17. Paroxysmal atrial fibrillation. Now in sinus rhythm. on coumadin, INR subtherapeutic, History of a previous CVA - Acute metabolic encephalopathy secondary to multifactorial see above ANGELICA, VMN - new (02/10/18) Shyla, daughter (oldest) shared that patient would not want to be kept alive with extreme measures. Patient has been in pain for a long time. She would never want to live in a facility. Discussed options for care; Continue with current treatment plan vs limitation (CPR) vs stopping those treatments that are not benefiting her. Family would like to have time to come. Discussed CPR. Family in agreement that if heart stopped she should not have CPR or shocks. If blood pressure drops they would like to restart pressor to give sons time to get here. Dialysis planned for today. They would like to meet again on Sunday at 1030--likely will change to comfort care then Family requests that patient be Baptized. Message left for Chaplain Hayden to call ICU or return call. Vale: Spiritual. Worked at [employer] [facility] [employer]. Family asked about prognosis after removal of ventilator; Possibly hours to short days. Above reviewed with Dr. Najera and AVERY Grullon RN Feb 18, 2018 11:42
--- NOTE | 2018-02-18 12:03 | PDOC ---
G I PROGRESS NOTE Subjective On ventilator; family in room. Objective Discussed with staff. Continues to pass altered watery stools. Physical Exam No PE. Review of Relevant I have reviewed the following items pat (where applicable) has been applied. Labs Laboratory Tests Test 02/16/18 18:00 02/17/18 10:50 02/18/18 06:05 White Blood Count 14.5 x10^3/uL (4.0-11.0) 14.5 x10^3/uL (4.0-11.0) 12.7 x10^3/uL (4.0-11.0) Red Blood Count 2.40 x10^6/uL (3.50-5.40) 2.35 x10^6/uL (3.50-5.40) 2.13 x10^6/uL (3.50-5.40) Hemoglobin 7.5 g/dL (12.0-15.5) 7.2 g/dL (12.0-15.5) 6.5 g/dL (12.0-15.5) Hematocrit 21.5 % (36.0-47.0) 21.1 % (36.0-47.0) 19.0 % (36.0-47.0) Mean Corpuscular Volume 90 fL (79-100) 90 fL (79-100) 89 fL (79-100) Mean Corpuscular Hemoglobin 31 pg (25-35) 31 pg (25-35) 31 pg (25-35) Mean Corpuscular Hemoglobin Concent 35 g/dL (31-37) 34 g/dL (31-37) 34 g/dL (31-37) Red Cell Distribution Width 15.8 % (11.5-14.5) 16.2 % (11.5-14.5) 15.9 % (11.5-14.5) Platelet Count 366 x10^3/uL (140-400) 471 x10^3/uL (140-400) 517 x10^3/uL (140-400) Neutrophils (%) (Auto) 95 % (31-73) 95 % (31-73) Lymphocytes (%) (Auto) 3 % (24-48) 3 % (24-48) Monocytes (%) (Auto) 2 % (0-9) 2 % (0-9) Eosinophils (%) (Auto) 0 % (0-3) 0 % (0-3) Basophils (%) (Auto) 0 % (0-3) 0 % (0-3) Neutrophils # (Auto) 13.8 x10^3uL (1.8-7.7) 12.0 x10^3uL (1.8-7.7) Lymphocytes # (Auto) 0.4 x10^3/uL (1.0-4.8) 0.3 x10^3/uL (1.0-4.8) Monocytes # (Auto) 0.3 x10^3/uL (0.0-1.1) 0.3 x10^3/uL (0.0-1.1) Eosinophils # (Auto) 0.0 x10^3/uL (0.0-0.7) 0.0 x10^3/uL (0.0-0.7) Basophils # (Auto) 0.0 x10^3/uL (0.0-0.2) 0.0 x10^3/uL (0.0-0.2) Sodium Level 139 mmol/L (136-145) 140 mmol/L (136-145) Potassium Level 4.4 mmol/L (3.5-5.1) 4.9 mmol/L (3.5-5.1) Chloride Level 101 mmol/L (98-107) 102 mmol/L (98-107) Carbon Dioxide Level 28 mmol/L (21-32) 25 mmol/L (21-32) Anion Gap 10 (6-14) 13 (6-14) Blood Urea Nitrogen 88 mg/dL (7-20) 111 mg/dL (7-20) Creatinine 4.3 mg/dL (0.6-1.0) 5.3 mg/dL (0.6-1.0) Estimated GFR (Cockcroft-Gault) 10.3 8.1 BUN/Creatinine Ratio 20 (6-20) Glucose Level 250 mg/dL (70-99) 200 mg/dL (70-99) Calcium Level 7.3 mg/dL (8.5-10.1) 7.4 mg/dL (8.5-10.1) Total Bilirubin 0.3 mg/dL (0.2-1.0) Aspartate Amino Transf (AST/SGOT) 90 U/L (15-37) Alanine Aminotransferase (ALT/SGPT) 58 U/L (14-59) Alkaline Phosphatase 212 U/L (46-116) Total Protein 5.5 g/dL (6.4-8.2) Albumin 2.0 g/dL (3.4-5.0) Albumin/Globulin Ratio 0.6 (1.0-1.7) Laboratory Tests Test 02/18/18 06:05 White Blood Count 12.7 x10^3/uL (4.0-11.0) Red Blood Count 2.13 x10^6/uL (3.50-5.40) Hemoglobin 6.5 g/dL (12.0-15.5) Hematocrit 19.0 % (36.0-47.0) Mean Corpuscular Volume 89 fL (79-100) Mean Corpuscular Hemoglobin 31 pg (25-35) Mean Corpuscular Hemoglobin Concent 34 g/dL (31-37) Red Cell Distribution Width 15.9 % (11.5-14.5) Platelet Count 517 x10^3/uL (140-400) Neutrophils (%) (Auto) 95 % (31-73) Lymphocytes (%) (Auto) 3 % (24-48) Monocytes (%) (Auto) 2 % (0-9) Eosinophils (%) (Auto) 0 % (0-3) Basophils (%) (Auto) 0 % (0-3) Neutrophils # (Auto) 12.0 x10^3uL (1.8-7.7) Lymphocytes # (Auto) 0.3 x10^3/uL (1.0-4.8) Monocytes # (Auto) 0.3 x10^3/uL (0.0-1.1) Eosinophils # (Auto) 0.0 x10^3/uL (0.0-0.7) Basophils # (Auto) 0.0 x10^3/uL (0.0-0.2) Sodium Level 140 mmol/L (136-145) Potassium Level 4.9 mmol/L (3.5-5.1) Chloride Level 102 mmol/L (98-107) Carbon Dioxide Level 25 mmol/L (21-32) Anion Gap 13 (6-14) Blood Urea Nitrogen 111 mg/dL (7-20) Creatinine 5.3 mg/dL (0.6-1.0) Estimated GFR (Cockcroft-Gault) 8.1 Glucose Level 200 mg/dL (70-99) Calcium Level 7.4 mg/dL (8.5-10.1) Microbiology 02/12/18 Blood Culture - Final, Complete NO GROWTH AFTER 5 DAYS 02/10/18 - Final, Complete 02/10/18 - Final, Complete 02/10/18 - Final, Complete 02/10/18 Gram Stain Evaluation - Final, Complete 02/10/18 Sputum Culture - Final, Complete 02/10/18 Sputum Result 1 - Final, Complete 02/13/18 Urine Culture - Final, Complete 02/13/18 Urine Culture Result 1 (JESSICA) - Final, Complete Hemoblobin fell some. Vitals/I & O Vital Sign - Last 24 Hours 02/17/18 02/17/18 02/17/18 02/17/18 12:00 12:00 13:00 14:00 Temp 97.4 97.4 Pulse 97 104 100 Resp 9 14 14 B/P (MAP) 131/72 (91) 117/67 (84) 143/79 (100) Pulse Ox 97 98 92 O2 Delivery Mechanical Ventilator 02/17/18 02/17/18 02/17/18 02/17/18 15:00 15:58 16:00 16:00 Temp 97.6 97.6 Pulse 91 95 Resp 14 11 B/P (MAP) 96/58 (71) 166/88 (114) Pulse Ox 97 95 95 O2 Delivery Ventilator Mechanical Ventilator 02/17/18 02/17/18 02/17/18 02/17/18 17:00 17:49 18:00 19:00 Pulse 100 96 102 Resp 14 14 14 B/P (MAP) 145/80 (101) 95/57 (70) 118/61 (80) Pulse Ox 100 95 96 96 O2 Delivery Ventilator 02/17/18 02/17/18 02/17/18 02/17/18 19:52 19:55 20:00 20:00 Temp 98.5 98.5 Pulse 110 Resp 19 B/P (MAP) 155/76 (102) Pulse Ox 97 97 98 O2 Delivery Ventilator Ventilator Mechanical Ventilator 12/23/18 02/17/18 02/17/18 02/17/18 20:15 21:00 21:00 21:49 Pulse 102 90 108 Resp 14 17 B/P (MAP) 145/71 (95) 109/59 163/81 (108) Pulse Ox 96 96 96 02/17/18 02/17/18 02/17/18 02/18/18 22:00 23:00 23:49 00:00 Pulse 115 106 Resp 17 17 B/P (MAP) 152/102 (119) 150/78 (102) Pulse Ox 96 97 97 O2 Delivery Ventilator Mechanical Ventilator 02/18/18 02/18/18 02/18/18 02/18/18 00:00 01:00 02:00 02:05 Temp 98.5 98.5 Pulse 100 108 98 Resp 19 12 16 B/P (MAP) 114/68 (83) 134/67 (89) 94/56 (69) Pulse Ox 98 97 97 98 O2 Delivery Ventilator 02/18/18 02/18/18 02/18/18 02/18/18 03:00 03:13 03:42 03:43 Pulse 98 Resp 12 B/P (MAP) 104/64 (77) Pulse Ox 99 98 100 100 O2 Delivery Ventilator Ventilator 02/18/18 02/18/18 02/18/18 02/18/18 04:00 04:00 05:00 05:40 Temp 99.0 99.0 Pulse 94 112 Resp 11 15 B/P (MAP) 94/57 (69) 170/87 (114) Pulse Ox 98 95 100 O2 Delivery Mechanical Ventilator Ventilator 02/18/18 02/18/18 02/18/18 02/18/18 06:00 07:00 08:00 08:00 Temp 98.7 98.7 Pulse 99 107 115 Resp 15 15 15 B/P (MAP) 142/71 (94) 103/59 (74) 179/87 (117) Pulse Ox 95 92 94 O2 Delivery Mechanical Ventilator 02/18/18 02/18/18 02/18/18 02/18/18 08:26 08:40 08:44 08:50 Temp 98.2 98.2 98.2 98.2 Pulse 11 96 113 Resp 10 12 10 B/P (MAP) 179/87 172/81 172/81 Pulse Ox 96 O2 Delivery Ventilator 12/24/18 02/18/18 02/18/18 02/18/18 09:00 09:00 09:42 10:00 Temp 98.6 98.6 Pulse 118 108 88 Resp 18 10 10 B/P (MAP) 149/84 167/88 (114) 155/83 (107) Pulse Ox 94 98 99 O2 Delivery Ventilator 02/18/18 02/18/18 10:00 10:20 Temp 98.4 98.0 98.4 98.0 Pulse 88 99 Resp 10 10 B/P (MAP) 155/83 115/65 Intake and Output 02/17/18 02/17/18 02/18/18 15:01 23:01 07:01 Intake Total 310 ml 1665.20 ml 450.3 ml Output Total 145 ml 55 ml 100 ml Balance 165 ml 1610.20 ml 350.3 ml Problem List Problems Medical Problems: (1) CHF (congestive heart failure) Status: Acute (2) Elevated troponin Status: Acute (3) Heart failure Status: Acute (4) Respiratory failure Status: Acute (5) Shortness of breath Status: Acute Assessment MOSF Probably some ongoing stress bleeding. Plan of Care: Continue current Tx, Mgmt Plan of Care Note My understanding is ultimately to withdraw care after holiday. BETY BALDWIN MD Feb 18, 2018 12:02
[2018-02-18] MEDS ORDERED: IV NORMAL SALINE 1000ML BAG 1,000 ML IV PRN ×2 (14:25)
[2018-02-18] MEDS ORDERED: DIALYSIS PATIENT. MC PRN (14:30)
[2018-02-18] MEDS: LABETALOL 20 MG/4 ML DISP.SYRIN. IVP PRN (15:53)
[2018-02-18] MEDS: MEROPENEM 500 MG in IV NORMAL SALINE 50ML 50 ML IV SCH (18:22)
[2018-02-18] MEDS: MIDAZOLAM 100mg/100ml NS BAG 100 ML IV PRN (19:34)
[2018-02-18] MEDS ORDERED: DARBEPOETIN ALFA 60 MCG/0.3 ML DISP.SYRIN. SQ SCH (21:00)
[2018-02-18] MEDS: PROPOFOL 100 ML IV PRN (21:04)
[2018-02-18] MEDS: ATORVASTATIN CALCIUM 10 MG TABLET. PO SCH (21:06)
[2018-02-18] MEDS: NOREPINEPHRIN 8MG/250ML PREMIX 250 ML IV PRN (21:58)
[2018-02-19] VITALS (24 sets, daily range): BP systolic 56–188; BP diastolic 42–94
[2018-02-19] MEDS: PROPOFOL 100 ML IV PRN ×3 (04:48→20:46)
--- NOTE | 2018-02-19 07:30 | PDOC ---
Infectious Disease Note Subjective Subjective Remains intubated, FiO2 50% Sedated Hypotensive, back on Levophed 3 mcg No fevers last 24 hrs ROS ROS no n/v/fever Vital Sign Vital Signs Vital Signs Date Time Temp Pulse Resp B/P (MAP) Pulse Ox O2 Delivery O2 Flow Rate FiO2 02/19/18 06:00 84 28 56/42 (47) 92 02/19/18 05:20 Ventilator 02/19/18 04:00 98.8 98.8 Physical Exam PHYSICAL EXAM GENERAL: Intubated and sedated HEENT: Pupils small, ETT, OGT LUNGS: Clear to auscultation, anteriorly HEART: S1, S2. ABDOMEN: Obese, soft. No grimace or guarding to palpation. Bowel sounds present. rectal tube GENITOURINARY: Indwelling Forman in place. EXTREMITIES: Generalized edema SKIN: Warm without rash. NEUROLOGIC: Unresponsive/sedated RIJ and HDC clean Labs Lab Laboratory Tests Test 02/18/18 08:35 Clostridium difficile Toxin B Gene Negative (Negative) Micro Microbiology 02/12/18 Blood Culture - Preliminary, Resulted NO GROWTH AFTER 1 DAY 02/10/18 - Final, Complete 02/10/18 - Final, Complete 02/10/18 - Final, Complete 02/10/18 Gram Stain Evaluation - Final, Complete 02/10/18 Sputum Culture - Final, Complete 02/10/18 Sputum Result 1 - Final, Complete Objective Assessment Fever - better Sputum with GPC from 02/10 Sepsis with lactic acidosis, present on admission.- better off Levophed Acute respiratory failure, likely aspirated. s/p intubation now on Solumedrol Hypotension resolved ANGELICA - Non-ST elevation myocardial infarction. Troponin up to 44.56 now Acute diastolic heart failure. Paroxysmal atrial fibrillation. Peripheral vascular disease. History of seizures. History of Clostridium difficile, with fecal transplant. Plan Plan of Care Cont meropenem, renal dosing Off Zyvox and micafungin Monitor labs/cultures/temp Supportive care c diff neg D/w RN Critically ill ZOFIA DAVALOS MD Feb 19, 2018 07:30
[2018-02-19 07:51] LABS: BASE EXCESS ABG 4 mmol/L (-3-3); HCO3 ABG 28 mmol/L (21-28); PCO2 ABG 42 mmHg (35-46); PO2 ABG 79 mmHg (65-108); SAT O2 ABG 94 % (92-99)
[2018-02-19] MEDS: BUDESONIDE 0.5 MG/2 ML NEBU. NEB SCH ×2 (07:54→20:05)
[2018-02-19] MEDS: IPRATROPIUM BROMIDE 0.5 MG/2.5 ML NEBU. NEB SCH ×4 (07:54→20:05)
[2018-02-19] MEDS: CLOPIDOGREL BISULFATE 75 MG TABLET PO SCH (08:13)
[2018-02-19] MEDS: PANTOPRAZOLE IV PUSH 40 MG VIAL. IVP SCH ×2 (08:13→17:06)
[2018-02-19] MEDS: methylPREDNISolone SOD SUCC PF 40 MG/ML VIAL. IV SCH ×2 (08:13→21:03)
[2018-02-19] MEDS: MAGNESIUM HYDROXIDE 2,400 MG/30 ML ORAL.SUSP. PO SCH (08:14)
[2018-02-19] MEDS: MAGNESIUM OXIDE 400 MG TABLET PO SCH (08:14)
[2018-02-19] MEDS: ASPIRIN CHEWABLE 81 MG TABLET. PO SCH (08:14)
[2018-02-19] MEDS: METOPROLOL TART IMMED RELEASE 25 MG TABLET. PO SCH ×2 (08:14→21:03)
[2018-02-19] MEDS: NICOTINE 14MG PATCH. TD SCH (08:15)
[2018-02-19 08:21] LABS: FIO2 ABG 50
--- NOTE | 2018-02-19 08:54 | PDOC ---
PROGRESS NOTES Chief Complaint Chief Complaint Acute hypoxic respiratory failure NOW IPPV (02/09/18), Spontaneous respiration on 40% O2, failed - returned to Ventilator assisted breathing AC22/450/50% 5 peep COPD, Smoker - 1 ppday? Severe sepsis - with respiratory failure likely 2/2 pneumonia/bronchitis, fever 102.6F, leukocytosis, tachycardia, Acute diastolic heart failure - BNP of greater than 35,000. diuresis for pulmonary congestion PAD - with carotid, AAA, renovascular disease - cont asa plavix NSTEMI - elevated troponin at 17. Paroxysmal atrial fibrillation. Now in sinus rhythm. on coumadin, INR subtherapeutic, History of a previous CVA - Acute metabolic encephalopathy secondary to multifactorial see above ANGELICA, VMN - new (02/10/18) - Dialysis began 02/13/18, patient tolerating well History of Present Illness History of Present Illness pt. was seen and examined in ICU Sedated with fentanyl, propofol and versed. 02/18/18 on wean trial was only breathing 6 breaths per minute spontaneously. spoke with nursing staff and daughter. Discussed palliative care as the patient made it clear she wished not to be intubated when I admitted her over a week ago. Family wishes for a meeting tomorrow to consider withdrawal of care, requested to limit lab draws. A/P: Acute hypoxic respiratory failure - known h/o COPD. She had a fever and leukocytosis, may have underlying pneumonia, will treat broad spectrum. pulmonary/critical care consultation appreciated. No wean trial this morning Severe sepsis - with respiratory failure likely 2/2 pneumonia/bronchitis, fever 102.6F, leukocytosis, tachycardia, broad spectrum early antibiotics. Acute diastolic heart failure - BNP of greater than 35,000. diuresis for pulmonary congestion ANGELICA - likely vasomotor/sepsis, will f/u nephrology recs PAD - with carotid, AAA, renovascular disease she definitely has CAD as well. Cont ASA, plavix NSTEMI - elevated troponin at 17. 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 Now in sinus rhythm. on coumadin, INR subtherapeutic, needs heparin gtt for NSTEMI anyway, will keep this. History of a previous CVA - now s/p bilateral CEA and treating afib, will keep on heparin, high intensity statin, ASA primary prevention Vitals Vitals Vital Signs Date Time Temp Pulse Resp B/P (MAP) Pulse Ox O2 Delivery O2 Flow Rate FiO2 02/19/18 07:54 98 Ventilator 02/19/18 07:00 97.8 79 19 90/51 (64) 97.8 Physical Exam Physical Exam GENERAL: Intubated and sedated HEENT: Pupils small, ETT, OGT LUNGS: Clear to auscultation, anteriorly HEART: S1, S2. ABDOMEN: Obese, soft. No grimace or guarding to palpation. Bowel sounds present. rectal tube GENITOURINARY: Indwelling Form[place] in place. EXTREMITIES: Generalized edema SKIN: Warm without rash. NEUROLOGIC: Unresponsive/sedated RIJ and HDC clean General: Other (intubated on a ventilator) Heart: Regular rate Lungs: Crackles Abdomen: Normal bowel sounds Extremities: No clubbing, No cyanosis, No edema, Normal pulses, No tenderness/ swelling Skin: No rashes, No breakdown, No significant lesion Labs LABS Laboratory Tests Test 02/19/18 07:45 O2 Saturation 94 % (92-99) Arterial Blood pH 7.44 (7.35-7.45) Arterial Blood pCO2 at Patient Temp 42 mmHg (35-46) Arterial Blood pO2 at Patient Temp 79 mmHg (65-108) Arterial Blood HCO3 28 mmol/L (21-28) Arterial Blood Base Excess 4 mmol/L (-3-3) FiO2 50 Assessment and Plan Assessmemt and Plan Problems Medical Problems: (1) CHF (congestive heart failure) Status: Acute (2) Elevated troponin Status: Acute (3) Heart failure Status: Acute (4) Respiratory failure Status: Acute (5) Shortness of breath Status: Acute Comment Review of Relevant I have reviewed the following items pat (where applicable) has been applied. Labs Laboratory Tests Test 02/17/18 10:50 02/18/18 06:05 02/18/18 08:35 02/19/18 07:45 White Blood Count 14.5 x10^3/uL (4.0-11.0) 12.7 x10^3/uL (4.0-11.0) Red Blood Count 2.35 x10^6/uL (3.50-5.40) 2.13 x10^6/uL (3.50-5.40) Hemoglobin 7.2 g/dL (12.0-15.5) 6.5 g/dL (12.0-15.5) Hematocrit 21.1 % (36.0-47.0) 19.0 % (36.0-47.0) Mean Corpuscular Volume 90 fL (79-100) 89 fL (79-100) Mean Corpuscular Hemoglobin 31 pg (25-35) 31 pg (25-35) Mean Corpuscular Hemoglobin Concent 34 g/dL (31-37) 34 g/dL (31-37) Red Cell Distribution Width 16.2 % (11.5-14.5) 15.9 % (11.5-14.5) Platelet Count 471 x10^3/uL (140-400) 517 x10^3/uL (140-400) Neutrophils (%) (Auto) 95 % (31-73) 95 % (31-73) Lymphocytes (%) (Auto) 3 % (24-48) 3 % (24-48) Monocytes (%) (Auto) 2 % (0-9) 2 % (0-9) Eosinophils (%) (Auto) 0 % (0-3) 0 % (0-3) Basophils (%) (Auto) 0 % (0-3) 0 % (0-3) Neutrophils # (Auto) 13.8 x10^3uL (1.8-7.7) 12.0 x10^3uL (1.8-7.7) Lymphocytes # (Auto) 0.4 x10^3/uL (1.0-4.8) 0.3 x10^3/uL (1.0-4.8) Monocytes # (Auto) 0.3 x10^3/uL (0.0-1.1) 0.3 x10^3/uL (0.0-1.1) Eosinophils # (Auto) 0.0 x10^3/uL (0.0-0.7) 0.0 x10^3/uL (0.0-0.7) Basophils # (Auto) 0.0 x10^3/uL (0.0-0.2) 0.0 x10^3/uL (0.0-0.2) Sodium Level 139 mmol/L (136-145) 140 mmol/L (136-145) Potassium Level 4.4 mmol/L (3.5-5.1) 4.9 mmol/L (3.5-5.1) Chloride Level 101 mmol/L (98-107) 102 mmol/L (98-107) Carbon Dioxide Level 28 mmol/L (21-32) 25 mmol/L (21-32) Anion Gap 10 (6-14) 13 (6-14) Blood Urea Nitrogen 88 mg/dL (7-20) 111 mg/dL (7-20) Creatinine 4.3 mg/dL (0.6-1.0) 5.3 mg/dL (0.6-1.0) Estimated GFR (Cockcroft-Gault) 10.3 8.1 BUN/Creatinine Ratio 20 (6-20) Glucose Level 250 mg/dL (70-99) 200 mg/dL (70-99) Calcium Level 7.3 mg/dL (8.5-10.1) 7.4 mg/dL (8.5-10.1) Total Bilirubin 0.3 mg/dL (0.2-1.0) Aspartate Amino Transf (AST/SGOT) 90 U/L (15-37) Alanine Aminotransferase (ALT/SGPT) 58 U/L (14-59) Alkaline Phosphatase 212 U/L (46-116) Total Protein 5.5 g/dL (6.4-8.2) Albumin 2.0 g/dL (3.4-5.0) Albumin/Globulin Ratio 0.6 (1.0-1.7) Clostridium difficile Toxin B Gene Negative (Negative) O2 Saturation 94 % (92-99) Arterial Blood pH 7.44 (7.35-7.45) Arterial Blood pCO2 at Patient Temp 42 mmHg (35-46) Arterial Blood pO2 at Patient Temp 79 mmHg (65-108) Arterial Blood HCO3 28 mmol/L (21-28) Arterial Blood Base Excess 4 mmol/L (-3-3) FiO2 50 Laboratory Tests Test 02/19/18 07:45 O2 Saturation 94 % (92-99) Arterial Blood pH 7.44 (7.35-7.45) Arterial Blood pCO2 at Patient Temp 42 mmHg (35-46) Arterial Blood pO2 at Patient Temp 79 mmHg (65-108) Arterial Blood HCO3 28 mmol/L (21-28) Arterial Blood Base Excess 4 mmol/L (-3-3) FiO2 50 Microbiology 02/12/18 Blood Culture - Final, Complete NO GROWTH AFTER 5 DAYS 02/10/18 - Final, Complete 02/10/18 - Final, Complete 02/10/18 - Final, Complete 02/10/18 Gram Stain Evaluation - Final, Complete 02/10/18 Sputum Culture - Final, Complete 02/10/18 Sputum Result 1 - Final, Complete 02/13/18 Urine Culture - Final, Complete 02/13/18 Urine Culture Result 1 (JESSICA) - Final, Complete Medications Current Medications Albuterol/ Ipratropium (Duoneb) 3 ml 1X ONCE NEB Last administered on at 17:14; Start 02/08/18 at 16:00; Stop 02/08/18 at 16:01; Status DC Vancomycin HCl (Vanco Per Pharmacy) 1 each PRN DAILY PRN MC SEE COMMENTS Last administered on 02/09/18at 08:59; Start 02/08/18 at 16:15; Stop 02/10/18 at 09 :07; Status DC Piperacillin Sod/ Tazobactam Sod (Zosyn Per Pharmacy) 1 each PRN DAILY PRN MC SEE COMMENTS; Start 02/08/18 at 16:15; Stop 02/12/18 at 07:24; Status DC Vancomycin HCl 1.75 gm/Sodium Chloride 500 ml @ 250 mls/hr 1X ONCE IV Last administered on 02/08/18at 16:36; Start 02/08/18 at 17:00; Stop 02/08/18 at 18 :59; Status DC Piperacillin Sod/ Tazobactam Sod 3.375 gm/Sodium Chloride 50 ml @ 100 mls/hr 1X ONCE IV Last administered on 02/08/18at 16:36; Start 02/08/18 at 16:30; Stop 02/08/18 at 16:59; Status DC Furosemide (Lasix) 20 mg 1X ONCE IVP Last administered on 02/08/18at 16:36; Start 02/08/18 at 16:30; Stop 02/08/18 at 16:31; Status DC Aspirin (Children'S Aspirin) 324 mg 1X ONCE PO Last administered on at 16:36; Start 02/08/18 at 16:30; Stop 02/08/18 at 16:31; Status DC Furosemide (Lasix) 20 mg 1X ONCE IVP Last administered on 02/08/18at 18:07; Start 02/08/18 at 17:00; Stop 02/08/18 at 17:01; Status DC Ondansetron HCl (Zofran) 4 mg 1X ONCE IV Last administered on 02/08/18at 17:00 ; Start 02/08/18 at 17:00; Stop 02/08/18 at 17:01; Status DC Ondansetron HCl (Zofran) 4 mg STK-MED ONCE .ROUTE ; Start 02/08/18 at 16:51; Stop 02/08/18 at 16:52; Status DC Heparin Sodium/ Dextrose 500 ml @ 0 mls/hr CONT PRN IV SEE I/O RECORD; Start 02/08/18 at 17:30; Status UNV Info (Anti-Coagulation Monitoring By Pharmacy) 1 each PRN DAILY PRN MC SEE COMMENTS Last administered on 02/11/18at 12:25; Start 02/08/18 at 17:30; Stop 02/13/18 at 09:17; Status DC Heparin Sodium/ Dextrose 500 ml @ 0 mls/hr CONT PRN IV SEE I/O RECORD Last administered on 02/12/18at 19:46; Start 02/08/18 at 17:30; Stop 02/13/18 at 08 :22; Status DC Heparin Sodium (Porcine) (Heparin Sodium) 1,800 unit PRN Q6HRS PRN IV FOR UFH LEVEL LESS THAN 0.2 Last administered on 02/08/18at 20:10; Start 02/08/18 at 17 :30; Stop 02/13/18 at 08:22; Status DC Ondansetron HCl (Zofran) 4 mg 1X PRN PRN IV NAUSEA/VOMITING; Start 02/08/18 at 18:00; Stop 02/09/18 at 09:06; Status DC Piperacillin Sod/ Tazobactam Sod 3.375 gm/Sodium Chloride 50 ml @ 100 mls/hr Q6HRS IV Last administered on 02/11/18at 05:37; Start 02/09/18 at 00:00; Stop 02/11/18 at 07:14; Status DC Vancomycin HCl 1 gm/Sodium Chloride 250 ml @ 250 mls/hr Q24H IV Last administered on 02/09/18at 16:30; Start 02/09/18 at 16:30; Stop 02/10/18 at 09 :07; Status DC Vancomycin HCl (Vancomycin Trough Level) 1 each 1X ONCE MC ; Start 02/10/18 at 16:00; Stop 02/10/18 at 16:00; Status DC Magnesium Sulfate/ Dextrose 100 ml @ 25 mls/hr 1X ONCE IV Last administered on 02/08/18at 22:03; Start 02/08/18 at 22:00; Stop 02/09/18 at 01:59; Status DC Aspirin (Radha Aspirin) 325 mg DAILY PO ; Start 02/09/18 at 09:00; Stop at 10:16; Status DC Atorvastatin Calcium (Lipitor) 10 mg HS PO ; Start 02/09/18 at 21:00; Stop at 21:00; Status DC Clonidine HCl (Catapres) 0.1 mg QHS PO Last administered on 02/08/18at 22:05; Start 02/08/18 at 22:00; Stop 02/09/18 at 10:16; Status DC Docusate Sodium (Colace) 100 mg BID PO ; Start 02/09/18 at 09:00; Stop at 10:16; Status DC Gabapentin (Neurontin) 300 mg TID PO Last administered on 02/08/18at 22:08; Start 02/08/18 at 22:20; Stop 02/09/18 at 10:16; Status DC Labetalol HCl (Normodyne Iv Push) 10 mg PRN Q2HR PRN IVP HYPERTENSION, SEE COMMENTS Last administered on 02/12/18at 15:12; Start 02/08/18 at 21:30; Stop 02/12/18 at 16:22; Status DC Lorazepam (Ativan) 1 mg PRN Q4HRS PRN IV ANXIETY / AGITATION Last administered on 02/15/18at 04:02; Start 02/08/18 at 21:30 Morphine Sulfate (Morphine Sulfate) 4 mg PRN Q4HRS PRN IV PAIN Last administered on 02/09/18at 19:45; Start 02/08/18 at 21:30 Acetaminophen (Tylenol Supp) 325 mg PRN Q6HRS PRN OK MILD PAIN / TEMP Last administered on 02/09/18at 09:30; Start 02/09/18 at 06:45 Ipratropium [place] (Atrovent) 0.5 mg RTQID NEB Last administered on at 07:54; Start 02/09/18 at 08:00 Budesonide (Pulmicort) 0.5 mg RTBID NEB Last administered on 02/19/18at 07:54; Start 02/09/18 at 08:00 Famotidine (Pepcid Vial) 20 mg QHS IVP Last administered on 02/12/18at 21:56; Start 02/09/18 at 21:00; Stop 02/13/18 at 14:47; Status DC Acetaminophen (Tylenol) 500 mg PRN Q6HRS PRN PO FEVER/KUO Last administered on 02/14/18at 17:23; Start 02/09/18 at 09:00 Ondansetron HCl (Zofran) 4 mg PRN Q6HRS PRN IV NAUSEA/VOMITING; Start at 09:00 Ondansetron HCl (Zofran Odt) 4 mg PRN Q6HRS PRN PO NAUSEA/VOMITING; Start at 09:00 Acetaminophen/ Hydrocodone Bitart (Lortab 10/325) 1 tab PRN Q4HRS PRN PO MODERATE PAIN; Start 02/09/18 at 09:00 Magnesium Hydroxide (Milk Of Magnesia) 400 mg DAILY PO Last administered on at 08:31; Start 02/09/18 at 09:00 Oxycodone HCl (OxyCONTIN) 10 mg BID PO ; Start 02/09/18 at 09:00; Stop at 10:16; Status DC Oxycodone/ Acetaminophen (Percocet 5/325) 1 tab BID PO ; Start 02/09/18 at 09: 00; Stop 02/09/18 at 10:16; Status DC Tramadol HCl (Ultram) 50 mg PRN DAILY PRN PO MILD PAIN; Start 02/09/18 at 09: 00 Non-Formulary Medication (Acetaminophen ) 1 tab BID PO ; Start 02/09/18 at 09: 00; Stop 02/09/18 at 09:12; Status DC Non-Formulary Medication (Albuterol Sulfate (Albuterol Sulfate Neb Soln)) 1 vial QID NEB ; Start 02/09/18 at 09:00; Stop 02/09/18 at 09:22; Status DC Citalopram Hydrobromide (CeleXA) 40 mg QHS PO ; Start 02/09/18 at 21:00; Stop 02/09/18 at 21:00; Status DC Hydrochlorothiazide (Microzide) 12.5 mg QHS PO ; Start 02/09/18 at 21:00; Stop 02/09/18 at 21:00; Status DC Non-Formulary Medication (Magnesium Oxide ) 1 tab DAILY PO ; Start 02/09/18 at 09:00; Stop 02/09/18 at 09:14; Status DC Non-Formulary Medication (Multivitamin (Multivitamins)) 1 tab DAILY PO ; Start 02/09/18 at 09:00; Stop 02/09/18 at 09:14; Status DC Nicotine (Nicoderm Cq 14mg) 1 patch DAILY TD Last administered on 02/18/18at 08 :50; Start 02/09/18 at 10:00 Ondansetron HCl (Zofran Odt) 4 mg Q6HRS PO Last administered on 02/14/18at 05: 52; Start 02/09/18 at 12:00; Stop 02/14/18 at 15:05; Status DC Non-Formulary Medication (Polyethylene Glycol 3350 (Miralax)) 1 packet DAILY PO ; Start 02/09/18 at 09:00; Stop 02/09/18 at 09:17; Status DC Quetiapine Fumarate (SEROquel) 25 mg QHS PO ; Start 02/09/18 at 21:00; Stop at 21:00; Status DC Labetalol HCl (Normodyne Iv Push) 10 mg PRN Q2HR PRN IVP HYPERTENSION, SEE COMMENTS; Start 02/09/18 at 09:00; Stop 02/09/18 at 09:06; Status DC Acetaminophen (Tylenol) 500 mg BID PO ; Start 02/09/18 at 10:00; Stop at 10:16; Status DC Magnesium Oxide (Magnesium Oxide) 400 mg DAILY PO Last administered on at 08:14; Start 02/09/18 at 10:00 Multivitamins (Thera M Plus) 1 tab DAILY PO ; Start 02/09/18 at 10:00; Stop at 10:16; Status DC Polyethylene Glycol (miraLAX PACKET) 17 gm DAILY PO ; Start 02/09/18 at 10:00; Stop 02/09/18 at 10:16; Status DC Albuterol Sulfate (Ventolin Neb Soln) 2.5 mg RTQID NEB Last administered on at 10:45; Start 02/09/18 at 12:00; Stop 02/15/18 at 18:59; Status DC Furosemide (Lasix) 60 mg 1X ONCE IVP Last administered on 02/09/18at 20:16; Start 02/09/18 at 20:00; Stop 02/09/18 at 20:01; Status DC Rocuronium [place] (Zemuron) 50 mg STK-MED ONCE .ROUTE ; Start 02/09/18 at 20: 23; Stop 02/09/18 at 20:24; Status DC Fentanyl Citrate 30 ml @ 0 mls/hr CONT PRN IV SEE PROTOCOL Last administered on 02/19/18at 00:59; Start 02/09/18 at 20:30 Propofol 100 ml @ 0 mls/hr CONT PRN IV SEE PROTOCOL Last administered on at 04:48; Start 02/09/18 at 20:30 Midazolam HCl 100 ml @ 5 mls/hr CONT PRN IV SEE I/O RECORD Last administered on 02/12/18at 03:38; Start 02/09/18 at 22:00; Stop 02/13/18 at 17:22; Status DC Norepinephrine Bitartrate 250 ml @ As Directed STK-MED ONCE IV ; Start at 02:33; Stop 02/10/18 at 02:35; Status DC Norepinephrine Bitartrate 250 ml @ 1.875 mls/ hr CONT PRN IV SEE I/O RECORD Last administered on 02/18/18at 21:58; Start 02/10/18 at 02:45 Methylprednisolone Sodium Succinate (SOLU-Medrol 40MG VIAL) 40 mg Q12HR IV Last administered on 02/19/18at 08:13; Start 02/10/18 at 09:00 Piperacillin Sod/ Tazobactam Sod 2.25 gm/Sodium Chloride 50 ml @ 100 mls/hr Q6HRS IV Last administered on 02/12/18at 05:47; Start 02/11/18 at 12:00; Stop 02/12/18 at 07:24; Status DC Propofol (Diprivan) 200 mg STK-MED ONCE IV ; Start 02/09/18 at 07:00; Stop at 07:43; Status DC Succinylcholine Chloride (Anectine) 200 mg STK-MED ONCE .ROUTE ; Start at 07:00; Stop 02/11/18 at 07:43; Status DC Phenylephrine HCl (PHENYLEPHRINE in 0.9% NACL PF) 1 mg STK-MED ONCE IV ; Start 02/09/18 at 07:00; Stop 02/11/18 at 07:43; Status DC Ephedrine Sulfate (ePHEDrine PF IN SALINE SYRINGE) 50 mg STK-MED ONCE IV ; Start 02/09/18 at 07:00; Stop 02/11/18 at 07:43; Status DC Rocuronium [place] (Zemuron) 50 mg STK-MED ONCE .ROUTE ; Start 02/09/18 at 21: 00; Stop 02/11/18 at 08:22; Status DC Linezolid/Dextrose 300 ml @ 300 mls/hr Q12HR IV Last administered on at 08:32; Start 02/12/18 at 09:00; Stop 02/15/18 at 10:31; Status DC Micafungin Sodium 100 mg/Dextrose 100 ml @ 100 mls/hr Q24H IV Last administered on 02/15/18at 08:34; Start 02/12/18 at 10:00; Stop 02/15/18 at 10 :31; Status DC Cefepime HCl (Maxipime) 1 gm Q12HR IVP Last administered on 02/13/18at 08:19; Start 02/12/18 at 09:00; Stop 02/13/18 at 10:56; Status DC Atorvastatin Calcium (Lipitor) 10 mg QHS PO Last administered on 02/18/18at 21: 06; Start 02/12/18 at 21:00 Labetalol HCl (Normodyne Iv Push) 20 mg PRN Q2HR PRN IVP HYPERTENSION, SEE COMMENTS Last administered on 02/18/18at 15:53; Start 02/12/18 at 16:15 Aspirin (Children'S Aspirin) 81 mg DAILYWBKFT PO Last administered on at 08:14; Start 02/12/18 at 16:15 Metoprolol Tartrate (Lopressor) 25 mg BID PO Last administered on 02/18/18at 21 :06; Start 02/13/18 at 11:00 Cefepime HCl (Maxipime) 1 gm QHS IVP ; Start 02/13/18 at 21:00; Stop 02/13/18 at 21:00; Status DC Lidocaine/Sodium Bicarbonate (Buffered Lidocaine 1%) 3 ml STK-MED ONCE .ROUTE ; Start 02/13/18 at 13:32; Stop 02/13/18 at 13:33; Status DC Heparin Sodium (Porcine) (Heparin Sodium) 10,000 unit STK-MED ONCE .ROUTE ; Start 02/13/18 at 13:32; Stop 02/13/18 at 13:33; Status DC Midazolam HCl (Versed) 5 mg STK-MED ONCE .ROUTE ; Start 02/13/18 at 14:04; Stop 02/13/18 at 14:05; Status DC Midazolam HCl (Versed) 5 mg 1X ONCE IV Last administered on 02/13/18at 14:10; Start 02/13/18 at 14:15; Stop 02/13/18 at 14:16; Status DC Lidocaine/Sodium Bicarbonate (Buffered Lidocaine 1%) 4 ml 1X ONCE INJ Last administered on 02/13/18at 14:57; Start 02/13/18 at 14:45; Stop 02/13/18 at 14 :52; Status DC Heparin Sodium (Porcine) (Heparin Sodium) 2,200 unit 1X ONCE INT CAT Last administered on 02/13/18at 15:02; Start 02/13/18 at 14:45; Stop 02/13/18 at 14 :52; Status DC Pantoprazole Sodium (PROTONIX VIAL for IV PUSH) 40 mg BIDAC IVP Last administered on 02/19/18at 08:13; Start 02/13/18 at 16:30 Heparin Sodium (Porcine) (Heparin Sodium) 2,500 unit 1X ONCE INT CAT ; Start 02/13/18 at 15:00; Stop 02/13/18 at 15:03; Status DC Meropenem 500 mg/ Sodium Chloride 50 ml @ 100 mls/hr Q24H IV Last administered on 02/18/18at 18:22; Start 02/13/18 at 16:00 Midazolam HCl 100 ml @ 5 mls/hr CONT PRN IV SEE I/O RECORD Last administered on 02/18/18at 19:34; Start 02/13/18 at 15:15 Midazolam HCl (Versed) 5 mg STK-MED ONCE .ROUTE ; Start 02/13/18 at 15:15; Stop 02/13/18 at 15:16; Status DC Clopidogrel Bisulfate (Plavix) 75 mg DAILYWBKFT PO Last administered on at 08:13; Start 02/13/18 at 16:00 Sodium Chloride 1,000 ml @ 1,000 mls/hr Q1H PRN IV hypotension; Start at 19:27; Stop 02/14/18 at 01:26; Status DC Albumin Human 200 ml @ 200 mls/hr 1X PRN PRN IV Hypotension; Start 02/13/18 at 19:30; Stop 02/14/18 at 01:29; Status DC Sodium Chloride 1,000 ml @ 400 mls/hr Q2H30M PRN IV PATENCY; Start 02/13/18 at 19:27; Stop 02/14/18 at 07:26; Status DC Info (PHARMACY MONITORING -- do not chart) 1 each PRN DAILY PRN MC SEE COMMENTS ; Start 02/13/18 at 19:30; Stop 02/16/18 at 15:59; Status DC Info (PHARMACY MONITORING -- do not chart) 1 each PRN DAILY PRN MC SEE COMMENTS ; Start 02/13/18 at 19:30; Status UNV Sodium Chloride 1,000 ml @ 1,000 mls/hr Q1H PRN IV hypotension; Start at 08:16; Stop 02/14/18 at 14:15; Status DC Sodium Chloride 1,000 ml @ 400 mls/hr Q2H30M PRN IV PATENCY; Start 02/14/18 at 08:16; Stop 02/14/18 at 20:15; Status DC Info (PHARMACY MONITORING -- do not chart) 1 each PRN DAILY PRN MC SEE COMMENTS ; Start 02/14/18 at 08:30; Status UNV Midazolam HCl (Versed) 5 mg STK-MED ONCE .ROUTE ; Start 02/13/18 at 15:30; Stop 02/14/18 at 09:00; Status DC Albuterol Sulfate (Ventolin Neb Soln) 2.5 mg PRN Q4HRS PRN NEB SHORTNESS OF BREATH; Start 02/15/18 at 19:00 Albumin Human 200 ml @ 200 mls/hr 1X PRN PRN IV Hypotension; Start 02/16/18 at 10:00; Stop 02/16/18 at 15:59; Status DC Sodium Chloride (Normal Saline Flush) 10 ml 1X PRN PRN IV AP catheter pack; Start 02/16/18 at 10:00; Stop 02/17/18 at 09:59; Status DC Sodium Chloride (Normal Saline Flush) 10 ml 1X PRN PRN IV EMERGENCY DETAIL [employer]IVER catheter pack; Start 02/16/18 at 10:00; Stop 02/17/18 at 09:59; Status DC Info (PHARMACY MONITORING -- do not chart) 1 each PRN DAILY PRN MC SEE COMMENTS ; Start 02/16/18 at 12:45 Info (PHARMACY MONITORING -- do not chart) 1 each PRN DAILY PRN MC SEE COMMENTS ; Start 02/16/18 at 12:45; Status UNV Furosemide (Lasix) 40 mg 1X ONCE IVP Last administered on 02/16/18at 23:42; Start 02/16/18 at 23:45; Stop 02/16/18 at 23:46; Status DC Multi-Ingred Cream/Lotion/Oil/ Oint (Artificial Tears Eye Ointment) 1 benjamin PRN Q1HR PRN OU DRY EYE; Start 02/17/18 at 07:45 Darbepoetin Ganesh (Aranesp) 60 mcg Mo SQ Last administered on 02/18/18at 21:05; Start 02/18/18 at 21:00 Sodium Chloride 1,000 ml @ 1,000 mls/hr Q1H PRN IV hypotension; Start at 14:25; Stop 02/18/18 at 20:24; Status DC Sodium Chloride 1,000 ml @ 400 mls/hr Q2H30M PRN IV PATENCY; Start 02/18/18 at 14:25; Stop 02/19/18 at 02:24; Status DC Info (PHARMACY MONITORING -- do not chart) 1 each PRN DAILY PRN MC SEE COMMENTS ; Start 02/18/18 at 14:30 Active Scripts Active Percocet 5-325 Mg Tablet (Oxycodone/Acetaminophen) 1 Each Tablet 1 Tab PO BID 3 Days Reported Zofran (Ondansetron Hcl) 4 Mg Tablet 1 Tab PO Q6HRS Milk Of Magnesia (Magnesium Hydroxide) 400 Mg/5 Ml Oral.susp 400 Mg PO Acetaminophen 500 Mg Tablet 1 Tab PO BID Clonidine Hcl 0.1 Mg Tablet 1 Tab PO QHS Tramadol Hcl 50 Mg Tablet 50 Mg PO DAILY PRN Hydralazine Hcl 20 Mg/1 Ml Vial 20 Mg IJ Gabapentin (Gabapentin) 300 Mg Capsule 300 Mg PO TID Acidophilus (Lactobacillus Acidophilus) 1 Each Capsule 1 Each PO Atorvastatin Calcium 10 Mg Tablet 1 Tab PO DAILY Vitamin C (Ascorbic Acid) 500 Mg Tablet.er 500 Mg PO Aspirin 325 Mg Tablet 1 Tab PO DAILY Colace (Docusate Sodium) 100 Mg Capsule 1 Cap PO BID Magnesium Oxide 400 Mg Tablet 1 Tab PO DAILY Multivitamins (Multivitamin) 1 Each Tablet 1 Tab PO DAILY NICODERM CQ 14mg (Nicotine) 1 Each Patch.td24 1 Patch TP DAILY Miralax (Polyethylene Glycol 3350) 17 Gm Powd.pack 1 Packet PO DAILY Albuterol Sulfate Neb Soln (Albuterol Sulfate) 0.63 Mg/3 Ml Vial.neb 1 Vial NEB QID Prednisone 20 Mg Tablet 1 Tab PO DAILY Seroquel (Quetiapine Fumarate) 25 Mg Tablet 1 Tab PO QHS Hydrochlorothiazide Tablet (Hydrochlorothiazide) 12.5 Mg Tablet 1 Tab PO QHS Lexapro (Escitalopram Oxalate) 20 Mg Tablet 1 Tab PO QHS Hydrocodone-Apap 10-325 (Hydrocodone Bit/Acetaminophen) 1 Each Tablet 1 Tab PO PRN Q4HRS Oxycontin (Oxycodone HCl) 10 Mg Tab.er.12h 10 Mg PO BID Vitals/I & O Vital Sign - Last 24 Hours 02/18/18 02/18/18 02/18/18 02/18/18 09:00 09:00 09:42 10:00 Temp 98.6 98.6 Pulse 118 108 88 Resp 18 10 10 B/P (MAP) 149/84 167/88 (114) 155/83 (107) Pulse Ox 94 98 99 O2 Delivery Ventilator 12/2402/18/18 02/18/18 02/18/18 10:00 10:20 11:00 11:35 Temp 98.4 98.0 98.4 98.0 Pulse 88 99 99 Resp 10 10 12 B/P (MAP) 155/83 115/65 113/64 (80) Pulse Ox 99 95 O2 Delivery Ventilator 02/18/18 02/18/18 02/18/18 02/18/18 12:00 12:00 12:51 13:00 Temp 97.8 97.8 Pulse 99 117 Resp 12 22 B/P (MAP) 193/94 (127) 201/106 (137) Pulse Ox 98 96 92 O2 Delivery Mechanical Ventilator Ventilator 02/18/18 02/18/18 02/18/18 02/18/18 14:00 14:28 14:55 15:53 Pulse 114 114 130 Resp 24 24 B/P (MAP) 200/105 (136) 174/88 (116) 158/89 Pulse Ox 92 92 97 O2 Delivery Ventilator 02/18/18 02/18/18 02/18/18 02/18/18 16:00 16:00 16:23 16:54 Temp 98.7 98.7 Pulse 122 95 Resp 15 10 B/P (MAP) 80/64 (69) 100/57 (71) Pulse Ox 90 97 98 O2 Delivery Mechanical Ventilator Ventilator 02/18/18 02/18/18 02/18/18 02/18/18 17:00 18:00 19:00 19:34 Pulse 91 96 106 Resp 10 10 30 15 B/P (MAP) 96/58 (71) 100/70 (80) 126/65 (85) Pulse Ox 99 95 97 95 02/18/18 02/18/18 02/18/18 02/18/18 19:59 20:00 20:00 20:06 Temp 97.0 97.0 Pulse 118 Resp 31 B/P (MAP) 155/91 (112) Pulse Ox 98 96 98 O2 Delivery Ventilator Mechanical Ventilator Ventilator 02/18/18 02/18/18 02/18/18 02/18/18 21:00 21:06 22:00 23:00 Pulse 99 106 99 91 Resp 30 28 25 B/P (MAP) 147/78 (101) 146/83 109/63 (78) 89/53 (65) Pulse Ox 97 100 100 02/18/18 02/18/18 02/19/18 02/19/18 23:20 23:59 00:00 00:59 Temp 97.3 97.3 Pulse 103 Resp 28 B/P (MAP) 97/58 (71) Pulse Ox 98 99 98 O2 Delivery Ventilator Mechanical Ventilator 02/19/18 02/19/18 02/19/18 02/19/18 01:00 01:13 01:29 02:00 Pulse 86 81 Resp 28 B/P (MAP) 88/55 (66) 99/59 (72) Pulse Ox 99 98 98 99 O2 Delivery Ventilator Ventilator 02/19/18 02/19/18 02/19/18 02/19/18 03:00 03:20 04:00 04:00 Temp 98.8 98.8 Pulse 103 94 Resp B/P (MAP) 106/62 (77) 107/65 (79) Pulse Ox 94 98 99 O2 Delivery Ventilator Mechanical Ventilator 02/19/18 02/19/18 02/19/18 02/19/18 05:00 05:20 06:00 07:00 Temp 97.8 97.8 Pulse 86 84 79 Resp 19 B/P (MAP) 188/94 (125) 56/42 (47) 90/51 (64) Pulse Ox 87 98 92 97 O2 Delivery Ventilator Ventilator 02/19/18 07:54 Pulse Ox 98 O2 Delivery Ventilator Intake and Output 02/18/18 02/18/18 02/19/18 15:01 23:01 07:01 Intake Total 760 ml 1128.97 ml 427.8 ml Output Total 175 ml 120 ml 45 ml Balance 585 ml 1008.97 ml 382.8 ml Nutrition Consultation Dietary Evaluation: Recommendations by RD: Increase Calorie Intake Comments: REC d/c TF rate per palliative care team plans are to withdrawl care sunday Expected Outcomes/Goals: comfort measures 02/18/18 Interpretation of weight loss: >10% in 6 months Malnutrition Findings: Body Fat Depletion (Non Severe: Mild Depletion Weight Status: Appropriate MADAN DRAKE MD Feb 19, 2018 08:54
--- NOTE | 2018-02-19 09:24 | PDOC ---
PULMONARY PROGRESS NOTES Subjective ON AC VENT SEDATED Vitals Vital Signs Date Time Temp Pulse Resp B/P (MAP) Pulse Ox O2 Delivery O2 Flow Rate FiO2 02/19/18 09:01 17 98 Ventilator 02/19/18 07:00 97.8 79 90/51 (64) 97.8 Lungs: Crackles Cardiovascular: S1, S2 Abdomen: Soft, Non-tender Extremities: No Edema Labs Laboratory Tests Test 02/17/18 10:50 02/18/18 06:05 02/18/18 08:35 02/19/18 07:45 White Blood Count 14.5 x10^3/uL (4.0-11.0) 12.7 x10^3/uL (4.0-11.0) Red Blood Count 2.35 x10^6/uL (3.50-5.40) 2.13 x10^6/uL (3.50-5.40) Hemoglobin 7.2 g/dL (12.0-15.5) 6.5 g/dL (12.0-15.5) Hematocrit 21.1 % (36.0-47.0) 19.0 % (36.0-47.0) Mean Corpuscular Volume 90 fL (79-100) 89 fL (79-100) Mean Corpuscular Hemoglobin 31 pg (25-35) 31 pg (25-35) Mean Corpuscular Hemoglobin Concent 34 g/dL (31-37) 34 g/dL (31-37) Red Cell Distribution Width 16.2 % (11.5-14.5) 15.9 % (11.5-14.5) Platelet Count 471 x10^3/uL (140-400) 517 x10^3/uL (140-400) Neutrophils (%) (Auto) 95 % (31-73) 95 % (31-73) Lymphocytes (%) (Auto) 3 % (24-48) 3 % (24-48) Monocytes (%) (Auto) 2 % (0-9) 2 % (0-9) Eosinophils (%) (Auto) 0 % (0-3) 0 % (0-3) Basophils (%) (Auto) 0 % (0-3) 0 % (0-3) Neutrophils # (Auto) 13.8 x10^3uL (1.8-7.7) 12.0 x10^3uL (1.8-7.7) Lymphocytes # (Auto) 0.4 x10^3/uL (1.0-4.8) 0.3 x10^3/uL (1.0-4.8) Monocytes # (Auto) 0.3 x10^3/uL (0.0-1.1) 0.3 x10^3/uL (0.0-1.1) Eosinophils # (Auto) 0.0 x10^3/uL (0.0-0.7) 0.0 x10^3/uL (0.0-0.7) Basophils # (Auto) 0.0 x10^3/uL (0.0-0.2) 0.0 x10^3/uL (0.0-0.2) Sodium Level 139 mmol/L (136-145) 140 mmol/L (136-145) Potassium Level 4.4 mmol/L (3.5-5.1) 4.9 mmol/L (3.5-5.1) Chloride Level 101 mmol/L (98-107) 102 mmol/L (98-107) Carbon Dioxide Level 28 mmol/L (21-32) 25 mmol/L (21-32) Anion Gap 10 (6-14) 13 (6-14) Blood Urea Nitrogen 88 mg/dL (7-20) 111 mg/dL (7-20) Creatinine 4.3 mg/dL (0.6-1.0) 5.3 mg/dL (0.6-1.0) Estimated GFR (Cockcroft-Gault) 10.3 8.1 BUN/Creatinine Ratio 20 (6-20) Glucose Level 250 mg/dL (70-99) 200 mg/dL (70-99) Calcium Level 7.3 mg/dL (8.5-10.1) 7.4 mg/dL (8.5-10.1) Total Bilirubin 0.3 mg/dL (0.2-1.0) Aspartate Amino Transf (AST/SGOT) 90 U/L (15-37) Alanine Aminotransferase (ALT/SGPT) 58 U/L (14-59) Alkaline Phosphatase 212 U/L (46-116) Total Protein 5.5 g/dL (6.4-8.2) Albumin 2.0 g/dL (3.4-5.0) Albumin/Globulin Ratio 0.6 (1.0-1.7) Clostridium difficile Toxin B Gene Negative (Negative) O2 Saturation 94 % (92-99) Arterial Blood pH 7.44 (7.35-7.45) Arterial Blood pCO2 at Patient Temp 42 mmHg (35-46) Arterial Blood pO2 at Patient Temp 79 mmHg (65-108) Arterial Blood HCO3 28 mmol/L (21-28) Arterial Blood Base Excess 4 mmol/L (-3-3) FiO2 50 Laboratory Tests Test 02/19/18 07:45 O2 Saturation 94 % (92-99) Arterial Blood pH 7.44 (7.35-7.45) Arterial Blood pCO2 at Patient Temp 42 mmHg (35-46) Arterial Blood pO2 at Patient Temp 79 mmHg (65-108) Arterial Blood HCO3 28 mmol/L (21-28) Arterial Blood Base Excess 4 mmol/L (-3-3) FiO2 50 Medications Active Scripts Medications Dose Route/Sig Max Daily Dose Days Date Category Zofran (Ondansetron Hcl) 4 Mg Tablet 1 Tab PO Q6HRS 09/20/17 Reported Milk Of Magnesia (Magnesium Hydroxide) 400 Mg/5 Ml Oral.susp 400 Mg PO 09/20/17 Reported Acetaminophen 500 Mg Tablet 1 Tab PO BID 09/20/17 Reported Clonidine Hcl 0.1 Mg Tablet 1 Tab PO QHS 09/20/17 Reported Tramadol Hcl 50 Mg Tablet 50 Mg PO DAILY PRN 09/20/17 Reported Hydralazine Hcl 20 Mg/1 Ml Vial 20 Mg IJ 09/20/17 Reported Gabapentin (Gabapentin) 300 Mg Capsule 300 Mg PO TID 09/20/17 Reported Acidophilus (Lactobacillus Acidophilus) 1 Each Capsule 1 Each PO 09/20/17 Reported Atorvastatin Calcium 10 Mg Tablet 1 Tab PO DAILY 09/20/17 Reported Vitamin C (Ascorbic Acid) 500 Mg Tablet.er 500 Mg PO 09/20/17 Reported Aspirin 325 Mg Tablet 1 Tab PO DAILY 09/20/17 Reported Colace (Docusate Sodium) 100 Mg Capsule 1 Cap PO BID 09/20/17 Reported Magnesium Oxide 400 Mg Tablet 1 Tab PO DAILY 09/20/17 Reported Multivitamins (Multivitamin) 1 Each Tablet 1 Tab PO DAILY 09/20/17 Reported NICODERM CQ 14mg (Nicotine) 1 Each Patch.td24 1 Patch TP DAILY 09/20/17 Reported Miralax (Polyethylene Glycol 3350) 17 Gm Powd.pack 1 Packet PO DAILY 09/20/17 Reported Albuterol Sulfate Neb Soln (Albuterol Sulfate) 0.63 Mg/3 Ml Vial.neb 1 Vial NEB QID 09/20/17 Reported Prednisone 20 Mg Tablet 1 Tab PO DAILY 09/20/17 Reported Percocet 5-325 Mg Tablet (Oxycodone/Acetaminophen) 1 Each Tablet 1 Tab PO BID 3 07/31/17 Rx Seroquel (Quetiapine Fumarate) 25 Mg Tablet 1 Tab PO QHS 10/21/16 Reported Hydrochlorothiazide Tablet (Hydrochlorothiazide) 12.5 Mg Tablet 1 Tab PO QHS 10/21/16 Reported Lexapro (Escitalopram Oxalate) 20 Mg Tablet 1 Tab PO QHS 10/21/16 Reported Hydrocodone-Apap 10-325 (Hydrocodone Bit/Acetaminophen) 1 Each Tablet 1 Tab PO PRN Q4HRS 10/21/16 Reported Oxycontin (Oxycodone HCl) 10 Mg Tab.er.12h 10 Mg PO BID 10/21/16 Reported Impression . IMPRESSION: 1. Acute hypoxemic respiratory failure secondary to acute diastolic congestive heart failure, non-ST elevation myocardial infarction/SEPSIS 2. Abnormal chest x-ray/CHF PNEUMONIA 3. Acute diastolic congestive heart failure. 4. Chronic obstructive pulmonary disease with mild acute exacerbation. 5. Acute bronchitis/ASPIRATION PNEUMONIA 6. Smoker. 7. Leukocytosis. 8. History of cerebrovascular accident. 9. hypotension 10. NSTEMI PER CARD 11. ACUTE RENAL FAILURE CXR 02/14 ET tube tip terminates approximately 4 cm above the sohan. Right IJ vascular catheter tip projects over the distal SVC. Enteric tube extends beyond the diaphragm tip is not visualized. Cardiomediastinal silhouette is stable. Left lung base parenchymal opacities are also stable. Patchy medial right lung base opacities are also grossly stable. No definite pleural effusion. No pneumothorax. Electronically signed by: Onur Valencia MD (02/13/2018 5:23 PM) [facility] Plan . FAMILY TO D/C SUPPORT THIS WEEK WILL USE PS DURING DAY CURRENTLY O N PRESSORS AND SEDATED FULL SUPPORT FOR NOW D/W PAT PALLIATIVE CARE I WOULD FAVOR D/C SUPPORT AND ALLOW NATURAL IT IS MY UNDERSTANDING THAT PT DID NOT WANT TO BE INTUBATED IN FIRST PLACE ANITBXN PER ID D/W DR DAVALOS FOLLOW CARD INPUT ABG AND CXR NOTED JUDE LAMAR MD Feb 19, 2018 09:24
--- NOTE | 2018-02-19 10:13 | PDOC ---
Renal-Progress Notes Subjective Notes Notes INTUBATED History of Present Illness Hx of present illness STABLE Vitals Vitals Vital Signs Date Time Temp Pulse Resp B/P (MAP) Pulse Ox O2 Delivery O2 Flow Rate FiO2 02/19/18 10:00 86 22 97/57 (70) 98 02/19/18 09:01 Ventilator 02/19/18 07:00 97.8 97.8 Weight Weight [ ] I.O. Intake and Output Intake and Output 02/19/18 07:01 Intake Total 2316.77 ml Output Total 345 ml Balance 1971.77 ml IV Total 269.77 ml Tube Feeding 1397 ml Blood Product IV Normal Saline Flush 350 ml Other 300 ml Output Urine Total 345 ml Labs Labs Laboratory Tests Test 02/19/18 07:45 O2 Saturation 94 % (92-99) Arterial Blood pH 7.44 (7.35-7.45) Arterial Blood pCO2 at Patient Temp 42 mmHg (35-46) Arterial Blood pO2 at Patient Temp 79 mmHg (65-108) Arterial Blood HCO3 28 mmol/L (21-28) Arterial Blood Base Excess 4 mmol/L (-3-3) FiO2 50 Micro Micro Microbiology 02/12/18 Blood Culture - Final, Complete NO GROWTH AFTER 5 DAYS 02/10/18 - Final, Complete 02/10/18 - Final, Complete 02/10/18 - Final, Complete 02/10/18 Gram Stain Evaluation - Final, Complete 02/10/18 Sputum Culture - Final, Complete 02/10/18 Sputum Result 1 - Final, Complete 02/13/18 Urine Culture - Final, Complete 02/13/18 Urine Culture Result 1 (EJSSICA) - Final, Complete Review of Systems Constitutional: yes: unresponsive Physical Exam General Appearance: no apparent distress Respiratory: decreased breath sounds Heart: S1S2 Abdomen: soft, bowel sounds present Genitourinary: bladder flat Extremities: pulses present Neurology: other (SEDATED) Assessment Assessment IMP ANGELICA CHF - DIASTOLIC ANEMIA COPD PNEUMONIA ACUTE RESP FAILURE PLAN ANTIBIOTICS HD TOMORROW VENT SUPPORT WILL FOLLOW ARTEMIO PAYTON MD Feb 19, 2018 10:13
[2018-02-19] MEDS: MIDAZOLAM 100mg/100ml NS BAG 100 ML IV PRN ×2 (12:17→23:51)
[2018-02-19] MEDS: MEROPENEM 500 MG in IV NORMAL SALINE 50ML 50 ML IV SCH (15:57)
[2018-02-19] MEDS: ATORVASTATIN CALCIUM 10 MG TABLET. PO SCH (21:04)
[2018-02-20] VITALS (14 sets, daily range): BP systolic 94–161; BP diastolic 53–88
[2018-02-20] MEDS: IPRATROPIUM BROMIDE 0.5 MG/2.5 ML NEBU. NEB SCH ×3 (07:28→16:00)
[2018-02-20] MEDS: BUDESONIDE 0.5 MG/2 ML NEBU. NEB SCH ×2 (07:28→20:00)
--- NOTE | 2018-02-20 08:09 | PDOC ---
Infectious Disease Note Subjective Subjective Remains intubated, FiO2 50% Sedated ROS ROS no n/v/d/ low grade fever Vital Sign Vital Signs Vital Signs Date Time Temp Pulse Resp B/P (MAP) Pulse Ox O2 Delivery O2 Flow Rate FiO2 02/20/18 07:28 97 Ventilator 02/20/18 07:00 81 16 94/53 (67) 02/20/18 04:00 100.0 100.0 Physical Exam PHYSICAL EXAM GENERAL: Intubated and sedated HEENT: Pupils small, ETT, OGT LUNGS: Clear to auscultation, anteriorly HEART: S1, S2. ABDOMEN: Obese, soft. No grimace or guarding to palpation. Bowel sounds present. rectal tube GENITOURINARY: Indwelling Forman in place. EXTREMITIES: Generalized edema SKIN: Warm without rash. NEUROLOGIC: Unresponsive/sedated RIJ and HDC clean Labs Micro Microbiology 02/12/18 Blood Culture - Preliminary, Resulted NO GROWTH AFTER 1 DAY 02/10/18 - Final, Complete 02/10/18 - Final, Complete 02/10/18 - Final, Complete 02/10/18 Gram Stain Evaluation - Final, Complete 02/10/18 Sputum Culture - Final, Complete 02/10/18 Sputum Result 1 - Final, Complete Objective Assessment Fever - better Sputum with GPC from 02/10 Sepsis with lactic acidosis, present on admission.- better off Levophed Acute respiratory failure, likely aspirated. s/p intubation now on Solumedrol Hypotension resolved ANGELICA - Non-ST elevation myocardial infarction. Troponin up to 44.56 now Acute diastolic heart failure. Paroxysmal atrial fibrillation. Peripheral vascular disease. History of seizures. History of Clostridium difficile, with fecal transplant. Plan Plan of Care Cont meropenem, renal dosing Off Zyvox and micafungin Monitor labs/cultures/temp Supportive care c diff neg D/w family manager meeting for comfort care today Critically ill ZOFIA DAVALOS MD Feb 20, 2018 08:09
[2018-02-20] MEDS: CLOPIDOGREL BISULFATE 75 MG TABLET PO SCH (08:26)
[2018-02-20] MEDS: PANTOPRAZOLE IV PUSH 40 MG VIAL. IVP SCH ×2 (08:27→16:30)
[2018-02-20] MEDS: ASPIRIN CHEWABLE 81 MG TABLET. PO SCH (08:27)
[2018-02-20 08:30] LABS: BASO % 0 % (0-3); EOS % 0 % (0-3); LYMPH # 0.7 x10^3/uL (1.0-4.8); LYMPH % 4 % (24-48); MEAN CORPUSCULAR HEMOGLOBIN 31 pg (25-35); MEAN CORPUSCULAR HGB CONC 35 g/dL (31-37); MEAN CORPUSCULAR VOLUME 88 fL (79-100); MONO # 0.3 x10^3/uL (0.0-1.1); MONO % 2 % (0-9); NEUT # 17.4 x10^3uL (1.8-7.7); NEUT % 95 % (31-73); PLATELET COUNT 481 x10^3/uL (140-400); RED BLOOD COUNT 1.75 x10^6/uL (3.50-5.40); RED CELL DISTRIBUTION WIDTH 15.6 % (11.5-14.5); WHITE BLOOD COUNT 18.4 x10^3/uL (4.0-11.0)
[2018-02-20 08:35] LABS: HEMATOCRIT 15.5 % (36.0-47.0); HEMOGLOBIN 5.4 g/dL (12.0-15.5)
[2018-02-20 08:41] LABS: CALCIUM 7.3 mg/dL (8.5-10.1); CREATININE 4.6 mg/dL (0.6-1.0); GFR 9.5
[2018-02-20 08:45] LABS: POTASSIUM 5.9 mmol/L (3.5-5.1)
[2018-02-20] MEDS: METOPROLOL TART IMMED RELEASE 25 MG TABLET. PO SCH ×2 (09:00→20:33)
--- NOTE | 2018-02-20 09:28 | PDOC ---
PULMONARY PROGRESS NOTES Subjective ON AC VENT SEDATED Vitals Vital Signs Date Time Temp Pulse Resp B/P (MAP) Pulse Ox O2 Delivery O2 Flow Rate FiO2 02/20/18 09:00 17 94/53 (67) 97 Ventilator 02/20/18 08:00 99.5 99.5 02/20/18 07:00 81 Lungs: Crackles Cardiovascular: S1, S2 Abdomen: Soft, Non-tender Extremities: No Edema Labs Laboratory Tests Test 02/19/18 07:45 02/20/18 08:15 O2 Saturation 94 % (92-99) Arterial Blood pH 7.44 (7.35-7.45) Arterial Blood pCO2 at Patient Temp 42 mmHg (35-46) Arterial Blood pO2 at Patient Temp 79 mmHg (65-108) Arterial Blood HCO3 28 mmol/L (21-28) Arterial Blood Base Excess 4 mmol/L (-3-3) FiO2 50 White Blood Count 18.4 x10^3/uL (4.0-11.0) Red Blood Count 1.75 x10^6/uL (3.50-5.40) Hemoglobin 5.4 g/dL (12.0-15.5) Hematocrit 15.5 % (36.0-47.0) Mean Corpuscular Volume 88 fL (79-100) Mean Corpuscular Hemoglobin 31 pg (25-35) Mean Corpuscular Hemoglobin Concent 35 g/dL (31-37) Red Cell Distribution Width 15.6 % (11.5-14.5) Platelet Count 481 x10^3/uL (140-400) Neutrophils (%) (Auto) 95 % (31-73) Lymphocytes (%) (Auto) 4 % (24-48) Monocytes (%) (Auto) 2 % (0-9) Eosinophils (%) (Auto) 0 % (0-3) Basophils (%) (Auto) 0 % (0-3) Neutrophils # (Auto) 17.4 x10^3uL (1.8-7.7) Lymphocytes # (Auto) 0.7 x10^3/uL (1.0-4.8) Monocytes # (Auto) 0.3 x10^3/uL (0.0-1.1) Eosinophils # (Auto) 0.0 x10^3/uL (0.0-0.7) Basophils # (Auto) 0.0 x10^3/uL (0.0-0.2) Sodium Level 140 mmol/L (136-145) Potassium Level 5.9 mmol/L (3.5-5.1) Chloride Level 102 mmol/L (98-107) Carbon Dioxide Level 27 mmol/L (21-32) Anion Gap 11 (6-14) Blood Urea Nitrogen 111 mg/dL (7-20) Creatinine 4.6 mg/dL (0.6-1.0) Estimated GFR (Cockcroft-Gault) 9.5 Glucose Level 162 mg/dL (70-99) Calcium Level 7.3 mg/dL (8.5-10.1) Laboratory Tests Test 02/20/18 08:15 White Blood Count 18.4 x10^3/uL (4.0-11.0) Red Blood Count 1.75 x10^6/uL (3.50-5.40) Hemoglobin 5.4 g/dL (12.0-15.5) Hematocrit 15.5 % (36.0-47.0) Mean Corpuscular Volume 88 fL (79-100) Mean Corpuscular Hemoglobin 31 pg (25-35) Mean Corpuscular Hemoglobin Concent 35 g/dL (31-37) Red Cell Distribution Width 15.6 % (11.5-14.5) Platelet Count 481 x10^3/uL (140-400) Neutrophils (%) (Auto) 95 % (31-73) Lymphocytes (%) (Auto) 4 % (24-48) Monocytes (%) (Auto) 2 % (0-9) Eosinophils (%) (Auto) 0 % (0-3) Basophils (%) (Auto) 0 % (0-3) Neutrophils # (Auto) 17.4 x10^3uL (1.8-7.7) Lymphocytes # (Auto) 0.7 x10^3/uL (1.0-4.8) Monocytes # (Auto) 0.3 x10^3/uL (0.0-1.1) Eosinophils # (Auto) 0.0 x10^3/uL (0.0-0.7) Basophils # (Auto) 0.0 x10^3/uL (0.0-0.2) Sodium Level 140 mmol/L (136-145) Potassium Level 5.9 mmol/L (3.5-5.1) Chloride Level 102 mmol/L (98-107) Carbon Dioxide Level 27 mmol/L (21-32) Anion Gap 11 (6-14) Blood Urea Nitrogen 111 mg/dL (7-20) Creatinine 4.6 mg/dL (0.6-1.0) Estimated GFR (Cockcroft-Gault) 9.5 Glucose Level 162 mg/dL (70-99) Calcium Level 7.3 mg/dL (8.5-10.1) Medications Active Scripts Medications Dose Route/Sig Max Daily Dose Days Date Category Zofran (Ondansetron Hcl) 4 Mg Tablet 1 Tab PO Q6HRS 09/20/17 Reported Milk Of Magnesia (Magnesium Hydroxide) 400 Mg/5 Ml Oral.susp 400 Mg PO 09/20/17 Reported Acetaminophen 500 Mg Tablet 1 Tab PO BID 09/20/17 Reported Clonidine Hcl 0.1 Mg Tablet 1 Tab PO QHS 09/20/17 Reported Tramadol Hcl 50 Mg Tablet 50 Mg PO DAILY PRN 09/20/17 Reported Hydralazine Hcl 20 Mg/1 Ml Vial 20 Mg IJ 09/20/17 Reported Gabapentin (Gabapentin) 300 Mg Capsule 300 Mg PO TID 09/20/17 Reported Acidophilus (Lactobacillus Acidophilus) 1 Each Capsule 1 Each PO 09/20/17 Reported Atorvastatin Calcium 10 Mg Tablet 1 Tab PO DAILY 09/20/17 Reported Vitamin C (Ascorbic Acid) 500 Mg Tablet.er 500 Mg PO 09/20/17 Reported Aspirin 325 Mg Tablet 1 Tab PO DAILY 09/20/17 Reported Colace (Docusate Sodium) 100 Mg Capsule 1 Cap PO BID 09/20/17 Reported Magnesium Oxide 400 Mg Tablet 1 Tab PO DAILY 09/20/17 Reported Multivitamins (Multivitamin) 1 Each Tablet 1 Tab PO DAILY 09/20/17 Reported NICODERM CQ 14mg (Nicotine) 1 Each Patch.td24 1 Patch TP DAILY 09/20/17 Reported Miralax (Polyethylene Glycol 3350) 17 Gm Powd.pack 1 Packet PO DAILY 09/20/17 Reported Albuterol Sulfate Neb Soln (Albuterol Sulfate) 0.63 Mg/3 Ml Vial.neb 1 Vial NEB QID 09/20/17 Reported Prednisone 20 Mg Tablet 1 Tab PO DAILY 09/20/17 Reported Percocet 5-325 Mg Tablet (Oxycodone/Acetaminophen) 1 Each Tablet 1 Tab PO BID 3 07/31/17 Rx Seroquel (Quetiapine Fumarate) 25 Mg Tablet 1 Tab PO QHS 10/21/16 Reported Hydrochlorothiazide Tablet (Hydrochlorothiazide) 12.5 Mg Tablet 1 Tab PO QHS 10/21/16 Reported Lexapro (Escitalopram Oxalate) 20 Mg Tablet 1 Tab PO QHS 10/21/16 Reported Hydrocodone-Apap 10-325 (Hydrocodone Bit/Acetaminophen) 1 Each Tablet 1 Tab PO PRN Q4HRS 10/21/16 Reported Oxycontin (Oxycodone HCl) 10 Mg Tab.er.12h 10 Mg PO BID 10/21/16 Reported Impression . IMPRESSION: 1. Acute hypoxemic respiratory failure secondary to acute diastolic congestive heart failure, non-ST elevation myocardial infarction/SEPSIS 2. Abnormal chest x-ray/CHF PNEUMONIA 3. Acute diastolic congestive heart failure. 4. Chronic obstructive pulmonary disease with mild acute exacerbation. 5. Acute bronchitis/ASPIRATION PNEUMONIA 6. Smoker. 7. Leukocytosis. 8. History of cerebrovascular accident. 9. hypotension 10. NSTEMI PER CARD 11. ACUTE RENAL FAILURE CXR 02/14 ET tube tip terminates approximately 4 cm above the sohan. Right IJ vascular catheter tip projects over the distal SVC. Enteric tube extends beyond the diaphragm tip is not visualized. Cardiomediastinal silhouette is stable. Left lung base parenchymal opacities are also stable. Patchy medial right lung base opacities are also grossly stable. No definite pleural effusion. No pneumothorax. Electronically signed by: Onur Valencia MD (02/13/2018 5:23 PM) [facility] Plan . FAMILY MEETING THIS AM WILL CONTINUE SUPPORT FOR NOW IT IS MY UNDERSTANDING THAT PT DID NOT WANT TO BE INTUBATED CURRENTLY O N PRESSORS AND SEDATED FULL SUPPORT FOR NOW D/W PAT PALLIATIVE CARE I WOULD FAVOR D/C SUPPORT AND ALLOW NATURAL ANITBXN PER ID D/W DR DAVALOS FOLLOW CARD INPUT ABG AND CXR NOTED JUDE LAMAR MD Feb 20, 2018 09:28
[2018-02-20] MEDS: MAGNESIUM HYDROXIDE 2,400 MG/30 ML ORAL.SUSP. PO SCH (09:32)
[2018-02-20] MEDS: MAGNESIUM OXIDE 400 MG TABLET PO SCH (09:32)
[2018-02-20] MEDS: methylPREDNISolone SOD SUCC PF 40 MG/ML VIAL. IV SCH ×2 (09:33→20:37)
[2018-02-20] MEDS: NICOTINE 14MG PATCH. TD SCH (09:33)
--- NOTE | 2018-02-20 09:39 | PDOC ---
PROGRESS NOTES Chief Complaint Chief Complaint Acute hypoxic respiratory failure NOW IPPV (02/09/18), Spontaneous respiration on 40% O2, failed - returned to Ventilator assisted breathing AC22/450/50% 5 peep COPD, Smoker Severe sepsis - with respiratory failure likely 2/2 pneumonia/bronchitis, fever 102.6F, leukocytosis, tachycardia, Acute diastolic heart failure PAD - with carotid, AAA, renovascular disease NSTEMI - elevated troponin at 17. Paroxysmal atrial fibrillation History of a previous CVA Acute metabolic encephalopathy secondary to multifactorial see above ANGELICA, VMN - new (02/10/18) - Dialysis began 02/13/18 Acute anemia - multifactorial History of Present Illness History of Present Illness pt. was seen and examined in ICU Sedated with fentanyl, propofol. 02/18/18 on wean trial was only breathing 6 breaths per minute spontaneously. Spoke with nursing staff and daughter. Discussed palliative care as the patient made it clear she wished not to be intubated when I admitted her over a week ago. Family wishes for a meeting today to consider withdrawal of care, requested to limit lab draws. Hb was 5.5 this morning, down from 6.5 yesterday, family wishes to hold off on transfusion. Potassium 5.9. Vitals stable. Meeting at 10:30 AM A/P: Acute hypoxic respiratory failure - known h/o COPD. She had a fever and leukocytosis, may have underlying pneumonia, will treat broad spectrum. pulmonary/critical care consultation appreciated. No wean trial this morning Severe sepsis - with respiratory failure likely 2/2 pneumonia/bronchitis, fever 102.6F, leukocytosis, tachycardia, broad spectrum early antibiotics. Acute diastolic heart failure - BNP of greater than 35,000. diuresis for pulmonary congestion ANGELICA - likely vasomotor/sepsis, will f/u nephrology recs. Family may wish to withdraw dialysis today PAD - with carotid, AAA, renovascular disease she definitely has CAD as well. Cont ASA, plavix NSTEMI - elevated troponin at 17. 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 Now in sinus rhythm. on coumadin, INR subtherapeutic, needs heparin gtt for NSTEMI anyway, will keep this. History of a previous CVA - now s/p bilateral CEA and treating afib, will keep on heparin, high intensity statin, ASA primary prevention Acute anemia - likely multifactorial, hemolyzing, GI blood loss and renal disease. Will hold off on transfusion, hemodynamically she is stable and family may wish to withdraw care today. FEN - NPO PPX - heparin-->scds FULL CODE for now CONT ICU, critically ill with grim prognosis, family meeting 10:30am to discuss goals of care. Vitals Vitals Vital Signs Date Time Temp Pulse Resp B/P (MAP) Pulse Ox O2 Delivery O2 Flow Rate FiO2 02/20/18 09:00 17 94/53 (67) 97 Ventilator 02/20/18 09:00 76 02/20/18 08:00 99.5 99.5 Physical Exam Physical Exam GENERAL: Intubated and sedated HEENT: Pupils small, ETT, OGT LUNGS: Clear to auscultation, anteriorly HEART: S1, S2. ABDOMEN: Obese, soft. No grimace or guarding to palpation. Bowel sounds present. rectal tube GENITOURINARY: Indwelling Forman in place. EXTREMITIES: Generalized edema SKIN: Warm without rash. NEUROLOGIC: Unresponsive/sedated RIJ and HDC clean General: Other (intubated on a ventilator) Heart: Regular rate Lungs: Crackles Abdomen: Normal bowel sounds Extremities: No clubbing, No cyanosis, No edema, Normal pulses, No tenderness/ swelling Skin: No rashes, No breakdown, No significant lesion Labs LABS Laboratory Tests Test 02/20/18 08:15 White Blood Count 18.4 x10^3/uL (4.0-11.0) Red Blood Count 1.75 x10^6/uL (3.50-5.40) Hemoglobin 5.4 g/dL (12.0-15.5) Hematocrit 15.5 % (36.0-47.0) Mean Corpuscular Volume 88 fL (79-100) Mean Corpuscular Hemoglobin 31 pg (25-35) Mean Corpuscular Hemoglobin Concent 35 g/dL (31-37) Red Cell Distribution Width 15.6 % (11.5-14.5) Platelet Count 481 x10^3/uL (140-400) Neutrophils (%) (Auto) 95 % (31-73) Lymphocytes (%) (Auto) 4 % (24-48) Monocytes (%) (Auto) 2 % (0-9) Eosinophils (%) (Auto) 0 % (0-3) Basophils (%) (Auto) 0 % (0-3) Neutrophils # (Auto) 17.4 x10^3uL (1.8-7.7) Lymphocytes # (Auto) 0.7 x10^3/uL (1.0-4.8) Monocytes # (Auto) 0.3 x10^3/uL (0.0-1.1) Eosinophils # (Auto) 0.0 x10^3/uL (0.0-0.7) Basophils # (Auto) 0.0 x10^3/uL (0.0-0.2) Sodium Level 140 mmol/L (136-145) Potassium Level 5.9 mmol/L (3.5-5.1) Chloride Level 102 mmol/L (98-107) Carbon Dioxide Level 27 mmol/L (21-32) Anion Gap 11 (6-14) Blood Urea Nitrogen 111 mg/dL (7-20) Creatinine 4.6 mg/dL (0.6-1.0) Estimated GFR (Cockcroft-Gault) 9.5 Glucose Level 162 mg/dL (70-99) Calcium Level 7.3 mg/dL (8.5-10.1) Assessment and Plan Assessmemt and Plan Problems Medical Problems: (1) CHF (congestive heart failure) Status: Acute (2) Elevated troponin Status: Acute (3) Heart failure Status: Acute (4) Respiratory failure Status: Acute (5) Shortness of breath Status: Acute Comment Review of Relevant I have reviewed the following items pat (where applicable) has been applied. Labs Laboratory Tests Test 02/19/18 07:45 02/20/18 08:15 O2 Saturation 94 % (92-99) Arterial Blood pH 7.44 (7.35-7.45) Arterial Blood pCO2 at Patient Temp 42 mmHg (35-46) Arterial Blood pO2 at Patient Temp 79 mmHg (65-108) Arterial Blood HCO3 28 mmol/L (21-28) Arterial Blood Base Excess 4 mmol/L (-3-3) FiO2 50 White Blood Count 18.4 x10^3/uL (4.0-11.0) Red Blood Count 1.75 x10^6/uL (3.50-5.40) Hemoglobin 5.4 g/dL (12.0-15.5) Hematocrit 15.5 % (36.0-47.0) Mean Corpuscular Volume 88 fL (79-100) Mean Corpuscular Hemoglobin 31 pg (25-35) Mean Corpuscular Hemoglobin Concent 35 g/dL (31-37) Red Cell Distribution Width 15.6 % (11.5-14.5) Platelet Count 481 x10^3/uL (140-400) Neutrophils (%) (Auto) 95 % (31-73) Lymphocytes (%) (Auto) 4 % (24-48) Monocytes (%) (Auto) 2 % (0-9) Eosinophils (%) (Auto) 0 % (0-3) Basophils (%) (Auto) 0 % (0-3) Neutrophils # (Auto) 17.4 x10^3uL (1.8-7.7) Lymphocytes # (Auto) 0.7 x10^3/uL (1.0-4.8) Monocytes # (Auto) 0.3 x10^3/uL (0.0-1.1) Eosinophils # (Auto) 0.0 x10^3/uL (0.0-0.7) Basophils # (Auto) 0.0 x10^3/uL (0.0-0.2) Sodium Level 140 mmol/L (136-145) Potassium Level 5.9 mmol/L (3.5-5.1) Chloride Level 102 mmol/L (98-107) Carbon Dioxide Level 27 mmol/L (21-32) Anion Gap 11 (6-14) Blood Urea Nitrogen 111 mg/dL (7-20) Creatinine 4.6 mg/dL (0.6-1.0) Estimated GFR (Cockcroft-Gault) 9.5 Glucose Level 162 mg/dL (70-99) Calcium Level 7.3 mg/dL (8.5-10.1) Laboratory Tests Test 02/20/18 08:15 White Blood Count 18.4 x10^3/uL (4.0-11.0) Red Blood Count 1.75 x10^6/uL (3.50-5.40) Hemoglobin 5.4 g/dL (12.0-15.5) Hematocrit 15.5 % (36.0-47.0) Mean Corpuscular Volume 88 fL (79-100) Mean Corpuscular Hemoglobin 31 pg (25-35) Mean Corpuscular Hemoglobin Concent 35 g/dL (31-37) Red Cell Distribution Width 15.6 % (11.5-14.5) Platelet Count 481 x10^3/uL (140-400) Neutrophils (%) (Auto) 95 % (31-73) Lymphocytes (%) (Auto) 4 % (24-48) Monocytes (%) (Auto) 2 % (0-9) Eosinophils (%) (Auto) 0 % (0-3) Basophils (%) (Auto) 0 % (0-3) Neutrophils # (Auto) 17.4 x10^3uL (1.8-7.7) Lymphocytes # (Auto) 0.7 x10^3/uL (1.0-4.8) Monocytes # (Auto) 0.3 x10^3/uL (0.0-1.1) Eosinophils # (Auto) 0.0 x10^3/uL (0.0-0.7) Basophils # (Auto) 0.0 x10^3/uL (0.0-0.2) Sodium Level 140 mmol/L (136-145) Potassium Level 5.9 mmol/L (3.5-5.1) Chloride Level 102 mmol/L (98-107) Carbon Dioxide Level 27 mmol/L (21-32) Anion Gap 11 (6-14) Blood Urea Nitrogen 111 mg/dL (7-20) Creatinine 4.6 mg/dL (0.6-1.0) Estimated GFR (Cockcroft-Gault) 9.5 Glucose Level 162 mg/dL (70-99) Calcium Level 7.3 mg/dL (8.5-10.1) Microbiology 02/12/18 Blood Culture - Final, Complete NO GROWTH AFTER 5 DAYS 02/10/18 - Final, Complete 02/10/18 - Final, Complete 02/10/18 - Final, Complete 02/10/18 Gram Stain Evaluation - Final, Complete 02/10/18 Sputum Culture - Final, Complete 02/10/18 Sputum Result 1 - Final, Complete 02/13/18 Urine Culture - Final, Complete 02/13/18 Urine Culture Result 1 (JESSICA) - Final, Complete Medications Current Medications Albuterol/ Ipratropium (Duoneb) 3 ml 1X ONCE NEB Last administered on at 17:14; Start 02/08/18 at 16:00; Stop 02/08/18 at 16:01; Status DC Vancomycin HCl (Vanco Per Pharmacy) 1 each PRN DAILY PRN MC SEE COMMENTS Last administered on 02/09/18at 08:59; Start 02/08/18 at 16:15; Stop 02/10/18 at 09 :07; Status DC Piperacillin Sod/ Tazobactam Sod (Zosyn Per Pharmacy) 1 each PRN DAILY PRN MC SEE COMMENTS; Start 02/08/18 at 16:15; Stop 02/12/18 at 07:24; Status DC Vancomycin HCl 1.75 gm/Sodium Chloride 500 ml @ 250 mls/hr 1X ONCE IV Last administered on 02/08/18at 16:36; Start 02/08/18 at 17:00; Stop 02/08/18 at 18 :59; Status DC Piperacillin Sod/ Tazobactam Sod 3.375 gm/Sodium Chloride 50 ml @ 100 mls/hr 1X ONCE IV Last administered on 02/08/18at 16:36; Start 02/08/18 at 16:30; Stop 02/08/18 at 16:59; Status DC Furosemide (Lasix) 20 mg 1X ONCE IVP Last administered on 02/08/18at 16:36; Start 02/08/18 at 16:30; Stop 02/08/18 at 16:31; Status DC Aspirin (Children'S Aspirin) 324 mg 1X ONCE PO Last administered on at 16:36; Start 02/08/18 at 16:30; Stop 02/08/18 at 16:31; Status DC Furosemide (Lasix) 20 mg 1X ONCE IVP Last administered on 02/08/18at 18:07; Start 02/08/18 at 17:00; Stop 02/08/18 at 17:01; Status DC Ondansetron HCl (Zofran) 4 mg 1X ONCE IV Last administered on 02/08/18at 17:00 ; Start 02/08/18 at 17:00; Stop 02/08/18 at 17:01; Status DC Ondansetron HCl (Zofran) 4 mg STK-MED ONCE .ROUTE ; Start 02/08/18 at 16:51; Stop 02/08/18 at 16:52; Status DC Heparin Sodium/ Dextrose 500 ml @ 0 mls/hr CONT PRN IV SEE I/O RECORD; Start 02/08/18 at 17:30; Status UNV Info (Anti-Coagulation Monitoring By Pharmacy) 1 each PRN DAILY PRN MC SEE COMMENTS Last administered on 02/11/18at 12:25; Start 02/08/18 at 17:30; Stop 02/13/18 at 09:17; Status DC Heparin Sodium/ Dextrose 500 ml @ 0 mls/hr CONT PRN IV SEE I/O RECORD Last administered on 02/12/18at 19:46; Start 02/08/18 at 17:30; Stop 02/13/18 at 08 :22; Status DC Heparin Sodium (Porcine) (Heparin Sodium) 1,800 unit PRN Q6HRS PRN IV FOR UFH LEVEL LESS THAN 0.2 Last administered on 02/08/18at 20:10; Start 02/08/18 at 17 :30; Stop 02/13/18 at 08:22; Status DC Ondansetron HCl (Zofran) 4 mg 1X PRN PRN IV NAUSEA/VOMITING; Start 02/08/18 at 18:00; Stop 02/09/18 at 09:06; Status DC Piperacillin Sod/ Tazobactam Sod 3.375 gm/Sodium Chloride 50 ml @ 100 mls/hr Q6HRS IV Last administered on 02/11/18at 05:37; Start 02/09/18 at 00:00; Stop 02/11/18 at 07:14; Status DC Vancomycin HCl 1 gm/Sodium Chloride 250 ml @ 250 mls/hr Q24H IV Last administered on 02/09/18at 16:30; Start 02/09/18 at 16:30; Stop 02/10/18 at 09 :07; Status DC Vancomycin HCl (Vancomycin Trough Level) 1 each 1X ONCE MC ; Start 02/10/18 at 16:00; Stop 02/10/18 at 16:00; Status DC Magnesium Sulfate/ Dextrose 100 ml @ 25 mls/hr 1X ONCE IV Last administered on 02/08/18at 22:03; Start 02/08/18 at 22:00; Stop 02/09/18 at 01:59; Status DC Aspirin (Radha Aspirin) 325 mg DAILY PO ; Start 02/09/18 at 09:00; Stop at 10:16; Status DC Atorvastatin Calcium (Lipitor) 10 mg HS PO ; Start 02/09/18 at 21:00; Stop at 21:00; Status DC Clonidine HCl (Catapres) 0.1 mg QHS PO Last administered on 02/08/18at 22:05; Start 02/08/18 at 22:00; Stop 02/09/18 at 10:16; Status DC Docusate Sodium (Colace) 100 mg BID PO ; Start 02/09/18 at 09:00; Stop at 10:16; Status DC Gabapentin (Neurontin) 300 mg TID PO Last administered on 02/08/18at 22:08; Start 02/08/18 at 22:20; Stop 02/09/18 at 10:16; Status DC Labetalol HCl (Normodyne Iv Push) 10 mg PRN Q2HR PRN IVP HYPERTENSION, SEE COMMENTS Last administered on 02/12/18at 15:12; Start 02/08/18 at 21:30; Stop 02/12/18 at 16:22; Status DC Lorazepam (Ativan) 1 mg PRN Q4HRS PRN IV ANXIETY / AGITATION Last administered on 02/15/18at 04:02; Start 02/08/18 at 21:30 Morphine Sulfate (Morphine Sulfate) 4 mg PRN Q4HRS PRN IV PAIN Last administered on 02/09/18at 19:45; Start 02/08/18 at 21:30 Acetaminophen (Tylenol Supp) 325 mg PRN Q6HRS PRN NV MILD PAIN / TEMP Last administered on 02/09/18at 09:30; Start 02/09/18 at 06:45 Ipratropium [place] (Atrovent) 0.5 mg RTQID NEB Last administered on at 07:28; Start 02/09/18 at 08:00 Budesonide (Pulmicort) 0.5 mg RTBID NEB Last administered on 02/20/18at 07:28; Start 02/09/18 at 08:00 Famotidine (Pepcid Vial) 20 mg QHS IVP Last administered on 02/12/18at 21:56; Start 02/09/18 at 21:00; Stop 02/13/18 at 14:47; Status DC Acetaminophen (Tylenol) 500 mg PRN Q6HRS PRN PO FEVER/KUO Last administered on 02/14/18at 17:23; Start 02/09/18 at 09:00 Ondansetron HCl (Zofran) 4 mg PRN Q6HRS PRN IV NAUSEA/VOMITING; Start at 09:00 Ondansetron HCl (Zofran Odt) 4 mg PRN Q6HRS PRN PO NAUSEA/VOMITING; Start at 09:00 Acetaminophen/ Hydrocodone Bitart (Lortab 10/325) 1 tab PRN Q4HRS PRN PO MODERATE PAIN; Start 02/09/18 at 09:00 Magnesium Hydroxide (Milk Of Magnesia) 400 mg DAILY PO Last administered on at 08:31; Start 02/09/18 at 09:00 Oxycodone HCl (OxyCONTIN) 10 mg BID PO ; Start 02/09/18 at 09:00; Stop at 10:16; Status DC Oxycodone/ Acetaminophen (Percocet 5/325) 1 tab BID PO ; Start 02/09/18 at 09: 00; Stop 02/09/18 at 10:16; Status DC Tramadol HCl (Ultram) 50 mg PRN DAILY PRN PO MILD PAIN; Start 02/09/18 at 09: 00 Non-Formulary Medication (Acetaminophen ) 1 tab BID PO ; Start 02/09/18 at 09: 00; Stop 02/09/18 at 09:12; Status DC Non-Formulary Medication (Albuterol Sulfate (Albuterol Sulfate Neb Soln)) 1 vial QID NEB ; Start 02/09/18 at 09:00; Stop 02/09/18 at 09:22; Status DC Citalopram Hydrobromide (CeleXA) 40 mg QHS PO ; Start 02/09/18 at 21:00; Stop 02/09/18 at 21:00; Status DC Hydrochlorothiazide (Microzide) 12.5 mg QHS PO ; Start 02/09/18 at 21:00; Stop 02/09/18 at 21:00; Status DC Non-Formulary Medication (Magnesium Oxide ) 1 tab DAILY PO ; Start 02/09/18 at 09:00; Stop 02/09/18 at 09:14; Status DC Non-Formulary Medication (Multivitamin (Multivitamins)) 1 tab DAILY PO ; Start 02/09/18 at 09:00; Stop 02/09/18 at 09:14; Status DC Nicotine (Nicoderm Cq 14mg) 1 patch DAILY TD Last administered on 02/18/18at 08 :50; Start 02/09/18 at 10:00 Ondansetron HCl (Zofran Odt) 4 mg Q6HRS PO Last administered on 02/14/18at 05: 52; Start 02/09/18 at 12:00; Stop 02/14/18 at 15:05; Status DC Non-Formulary Medication (Polyethylene Glycol 3350 (Miralax)) 1 packet DAILY PO ; Start 02/09/18 at 09:00; Stop 02/09/18 at 09:17; Status DC Quetiapine Fumarate (SEROquel) 25 mg QHS PO ; Start 02/09/18 at 21:00; Stop at 21:00; Status DC Labetalol HCl (Normodyne Iv Push) 10 mg PRN Q2HR PRN IVP HYPERTENSION, SEE COMMENTS; Start 02/09/18 at 09:00; Stop 02/09/18 at 09:06; Status DC Acetaminophen (Tylenol) 500 mg BID PO ; Start 02/09/18 at 10:00; Stop at 10:16; Status DC Magnesium Oxide (Magnesium Oxide) 400 mg DAILY PO Last administered on at 08:14; Start 02/09/18 at 10:00 Multivitamins (Thera M Plus) 1 tab DAILY PO ; Start 02/09/18 at 10:00; Stop at 10:16; Status DC Polyethylene Glycol (miraLAX PACKET) 17 gm DAILY PO ; Start 02/09/18 at 10:00; Stop 02/09/18 at 10:16; Status DC Albuterol Sulfate (Ventolin Neb Soln) 2.5 mg RTQID NEB Last administered on at 10:45; Start 02/09/18 at 12:00; Stop 02/15/18 at 18:59; Status DC Furosemide (Lasix) 60 mg 1X ONCE IVP Last administered on 02/09/18at 20:16; Start 02/09/18 at 20:00; Stop 02/09/18 at 20:01; Status DC Rocuronium [place] (Zemuron) 50 mg STK-MED ONCE .ROUTE ; Start 02/09/18 at 20: 23; Stop 02/09/18 at 20:24; Status DC Fentanyl Citrate 30 ml @ 0 mls/hr CONT PRN IV SEE PROTOCOL Last administered on 02/20/18at 04:01; Start 02/09/18 at 20:30 Propofol 100 ml @ 0 mls/hr CONT PRN IV SEE PROTOCOL Last administered on at 20:46; Start 02/09/18 at 20:30 Midazolam HCl 100 ml @ 5 mls/hr CONT PRN IV SEE I/O RECORD Last administered on 02/12/18at 03:38; Start 02/09/18 at 22:00; Stop 02/13/18 at 17:22; Status DC Norepinephrine Bitartrate 250 ml @ As Directed STK-MED ONCE IV ; Start at 02:33; Stop 02/10/18 at 02:35; Status DC Norepinephrine Bitartrate 250 ml @ 1.875 mls/ hr CONT PRN IV SEE I/O RECORD Last administered on 02/18/18at 21:58; Start 02/10/18 at 02:45 Methylprednisolone Sodium Succinate (SOLU-Medrol 40MG VIAL) 40 mg Q12HR IV Last administered on 02/19/18at 21:03; Start 02/10/18 at 09:00 Piperacillin Sod/ Tazobactam Sod 2.25 gm/Sodium Chloride 50 ml @ 100 mls/hr Q6HRS IV Last administered on 02/12/18at 05:47; Start 02/11/18 at 12:00; Stop 02/12/18 at 07:24; Status DC Propofol (Diprivan) 200 mg STK-MED ONCE IV ; Start 02/09/18 at 07:00; Stop at 07:43; Status DC Succinylcholine Chloride (Anectine) 200 mg STK-MED ONCE .ROUTE ; Start at 07:00; Stop 02/11/18 at 07:43; Status DC Phenylephrine HCl (PHENYLEPHRINE in 0.9% NACL PF) 1 mg STK-MED ONCE IV ; Start 02/09/18 at 07:00; Stop 02/11/18 at 07:43; Status DC Ephedrine Sulfate (ePHEDrine PF IN SALINE SYRINGE) 50 mg STK-MED ONCE IV ; Start 02/09/18 at 07:00; Stop 02/11/18 at 07:43; Status DC Rocuronium [place] (Zemuron) 50 mg STK-MED ONCE .ROUTE ; Start 02/09/18 at 21: 00; Stop 02/11/18 at 08:22; Status DC Linezolid/Dextrose 300 ml @ 300 mls/hr Q12HR IV Last administered on at 08:32; Start 02/12/18 at 09:00; Stop 02/15/18 at 10:31; Status DC Micafungin Sodium 100 mg/Dextrose 100 ml @ 100 mls/hr Q24H IV Last administered on 02/15/18at 08:34; Start 02/12/18 at 10:00; Stop 02/15/18 at 10 :31; Status DC Cefepime HCl (Maxipime) 1 gm Q12HR IVP Last administered on 02/13/18at 08:19; Start 02/12/18 at 09:00; Stop 02/13/18 at 10:56; Status DC Atorvastatin Calcium (Lipitor) 10 mg QHS PO Last administered on 02/19/18at 21: 04; Start 02/12/18 at 21:00 Labetalol HCl (Normodyne Iv Push) 20 mg PRN Q2HR PRN IVP HYPERTENSION, SEE COMMENTS Last administered on 02/18/18at 15:53; Start 02/12/18 at 16:15 Aspirin (Children'S Aspirin) 81 mg DAILYWBKFT PO Last administered on at 08:27; Start 02/12/18 at 16:15 Metoprolol Tartrate (Lopressor) 25 mg BID PO Last administered on 02/19/18at 21 :03; Start 02/13/18 at 11:00 Cefepime HCl (Maxipime) 1 gm QHS IVP ; Start 02/13/18 at 21:00; Stop 02/13/18 at 21:00; Status DC Lidocaine/Sodium Bicarbonate (Buffered Lidocaine 1%) 3 ml STK-MED ONCE .ROUTE ; Start 02/13/18 at 13:32; Stop 02/13/18 at 13:33; Status DC Heparin Sodium (Porcine) (Heparin Sodium) 10,000 unit STK-MED ONCE .ROUTE ; Start 02/13/18 at 13:32; Stop 02/13/18 at 13:33; Status DC Midazolam HCl (Versed) 5 mg STK-MED ONCE .ROUTE ; Start 02/13/18 at 14:04; Stop 02/13/18 at 14:05; Status DC Midazolam HCl (Versed) 5 mg 1X ONCE IV Last administered on 02/13/18at 14:10; Start 02/13/18 at 14:15; Stop 02/13/18 at 14:16; Status DC Lidocaine/Sodium Bicarbonate (Buffered Lidocaine 1%) 4 ml 1X ONCE INJ Last administered on 02/13/18at 14:57; Start 02/13/18 at 14:45; Stop 02/13/18 at 14 :52; Status DC Heparin Sodium (Porcine) (Heparin Sodium) 2,200 unit 1X ONCE INT CAT Last administered on 02/13/18at 15:02; Start 02/13/18 at 14:45; Stop 02/13/18 at 14 :52; Status DC Pantoprazole Sodium (PROTONIX VIAL for IV PUSH) 40 mg BIDAC IVP Last administered on 02/20/18at 08:27; Start 02/13/18 at 16:30 Heparin Sodium (Porcine) (Heparin Sodium) 2,500 unit 1X ONCE INT CAT ; Start 02/13/18 at 15:00; Stop 02/13/18 at 15:03; Status DC Meropenem 500 mg/ Sodium Chloride 50 ml @ 100 mls/hr Q24H IV Last administered on 02/19/18at 15:57; Start 02/13/18 at 16:00 Midazolam HCl 100 ml @ 5 mls/hr CONT PRN IV SEE I/O RECORD Last administered on 02/19/18at 23:51; Start 02/13/18 at 15:15 Midazolam HCl (Versed) 5 mg STK-MED ONCE .ROUTE ; Start 02/13/18 at 15:15; Stop 02/13/18 at 15:16; Status DC Clopidogrel Bisulfate (Plavix) 75 mg DAILYWBKFT PO Last administered on 12/26/ 18at 08:26; Start 02/13/18 at 16:00 Sodium Chloride 1,000 ml @ 1,000 mls/hr Q1H PRN IV hypotension; Start at 19:27; Stop 02/14/18 at 01:26; Status DC Albumin Human 200 ml @ 200 mls/hr 1X PRN PRN IV Hypotension; Start 02/13/18 at 19:30; Stop 02/14/18 at 01:29; Status DC Sodium Chloride 1,000 ml @ 400 mls/hr Q2H30M PRN IV PATENCY; Start 02/13/18 at 19:27; Stop 02/14/18 at 07:26; Status DC Info (PHARMACY MONITORING -- do not chart) 1 each PRN DAILY PRN MC SEE COMMENTS ; Start 02/13/18 at 19:30; Stop 02/16/18 at 15:59; Status DC Info (PHARMACY MONITORING -- do not chart) 1 each PRN DAILY PRN MC SEE COMMENTS ; Start 02/13/18 at 19:30; Status UNV Sodium Chloride 1,000 ml @ 1,000 mls/hr Q1H PRN IV hypotension; Start at 08:16; Stop 02/14/18 at 14:15; Status DC Sodium Chloride 1,000 ml @ 400 mls/hr Q2H30M PRN IV PATENCY; Start 02/14/18 at 08:16; Stop 02/14/18 at 20:15; Status DC Info (PHARMACY MONITORING -- do not chart) 1 each PRN DAILY PRN MC SEE COMMENTS ; Start 02/14/18 at 08:30; Status UNV Midazolam HCl (Versed) 5 mg STK-MED ONCE .ROUTE ; Start 02/13/18 at 15:30; Stop 02/14/18 at 09:00; Status DC Albuterol Sulfate (Ventolin Neb Soln) 2.5 mg PRN Q4HRS PRN NEB SHORTNESS OF BREATH; Start 02/15/18 at 19:00 Albumin Human 200 ml @ 200 mls/hr 1X PRN PRN IV Hypotension; Start 02/16/18 at 10:00; Stop 02/16/18 at 15:59; Status DC Sodium Chloride (Normal Saline Flush) 10 ml 1X PRN PRN IV AP catheter pack; Start 02/16/18 at 10:00; Stop 02/17/18 at 09:59; Status DC Sodium Chloride (Normal Saline Flush) 10 ml 1X PRN PRN IV CARRIER DRIVER catheter pack; Start 02/16/18 at 10:00; Stop 02/17/18 at 09:59; Status DC Info (PHARMACY MONITORING -- do not chart) 1 each PRN DAILY PRN MC SEE COMMENTS ; Start 02/16/18 at 12:45; Stop 02/19/18 at 12:58; Status DC Info (PHARMACY MONITORING -- do not chart) 1 each PRN DAILY PRN MC SEE COMMENTS ; Start 02/16/18 at 12:45; Status UNV Furosemide (Lasix) 40 mg 1X ONCE IVP Last administered on 02/16/18at 23:42; Start 02/16/18 at 23:45; Stop 02/16/18 at 23:46; Status DC Multi-Ingred Cream/Lotion/Oil/ Oint (Artificial Tears Eye Ointment) 1 benjamin PRN Q1HR PRN OU DRY EYE; Start 02/17/18 at 07:45 Darbepoetin Ganesh (Aranesp) 60 mcg Mo SQ Last administered on 02/18/18at 21:05; Start 02/18/18 at 21:00 Sodium Chloride 1,000 ml @ 1,000 mls/hr Q1H PRN IV hypotension; Start at 14:25; Stop 02/18/18 at 20:24; Status DC Sodium Chloride 1,000 ml @ 400 mls/hr Q2H30M PRN IV PATENCY; Start 02/18/18 at 14:25; Stop 02/19/18 at 02:24; Status DC Info (PHARMACY MONITORING -- do not chart) 1 each PRN DAILY PRN MC SEE COMMENTS ; Start 02/18/18 at 14:30 Active Scripts Active Percocet 5-325 Mg Tablet (Oxycodone/Acetaminophen) 1 Each Tablet 1 Tab PO BID 3 Days Reported Zofran (Ondansetron Hcl) 4 Mg Tablet 1 Tab PO Q6HRS Milk Of Magnesia (Magnesium Hydroxide) 400 Mg/5 Ml Oral.susp 400 Mg PO Acetaminophen 500 Mg Tablet 1 Tab PO BID Clonidine Hcl 0.1 Mg Tablet 1 Tab PO QHS Tramadol Hcl 50 Mg Tablet 50 Mg PO DAILY PRN Hydralazine Hcl 20 Mg/1 Ml Vial 20 Mg IJ Gabapentin (Gabapentin) 300 Mg Capsule 300 Mg PO TID Acidophilus (Lactobacillus Acidophilus) 1 Each Capsule 1 Each PO Atorvastatin Calcium 10 Mg Tablet 1 Tab PO DAILY Vitamin C (Ascorbic Acid) 500 Mg Tablet.er 500 Mg PO Aspirin 325 Mg Tablet 1 Tab PO DAILY Colace (Docusate Sodium) 100 Mg Capsule 1 Cap PO BID Magnesium Oxide 400 Mg Tablet 1 Tab PO DAILY Multivitamins (Multivitamin) 1 Each Tablet 1 Tab PO DAILY NICODERM CQ 14mg (Nicotine) 1 Each Patch.td24 1 Patch TP DAILY Miralax (Polyethylene Glycol 3350) 17 Gm Powd.pack 1 Packet PO DAILY Albuterol Sulfate Neb Soln (Albuterol Sulfate) 0.63 Mg/3 Ml Vial.neb 1 Vial NEB QID Prednisone 20 Mg Tablet 1 Tab PO DAILY Seroquel (Quetiapine Fumarate) 25 Mg Tablet 1 Tab PO QHS Hydrochlorothiazide Tablet (Hydrochlorothiazide) 12.5 Mg Tablet 1 Tab PO QHS Lexapro (Escitalopram Oxalate) 20 Mg Tablet 1 Tab PO QHS Hydrocodone-Apap 10-325 (Hydrocodone Bit/Acetaminophen) 1 Each Tablet 1 Tab PO PRN Q4HRS Oxycontin (Oxycodone HCl) 10 Mg Tab.er.12h 10 Mg PO BID Vitals/I & O Vital Sign - Last 24 Hours 02/19/18 02/19/18 02/19/18 02/19/18 10:00 11:00 11:33 12:00 Temp 98.1 98.1 Pulse 86 94 92 Resp 22 22 22 B/P (MAP) 97/57 (70) 99/60 (73) 116/65 (82) Pulse Ox 98 93 99 O2 Delivery Mechanical Ventilator 02/19/18 02/19/18 02/19/18 02/19/18 12:26 13:00 14:00 14:25 Pulse 93 103 Resp 22 22 22 B/P (MAP) 120/76 (91) 95/51 (66) Pulse Ox 92 95 98 98 O2 Delivery Ventilator Ventilator 02/19/18 02/19/18 02/19/18 02/19/18 14:55 15:00 16:00 16:00 Temp 97.7 97.7 Pulse 110 87 Resp 22 22 25 B/P (MAP) 86/53 (64) 88/56 (67) Pulse Ox 93 93 96 O2 Delivery Ventilator Mechanical Ventilator 02/19/18 02/19/18 02/19/18 02/19/18 16:36 17:21 17:51 18:26 Pulse 94 82 Resp 21 21 B/P (MAP) 87/51 (63) 84/50 (61) Pulse Ox 92 100 100 98 O2 Delivery Ventilator Ventilator 02/19/18 02/19/18 02/19/18 02/19/18 19:00 20:00 20:00 20:06 Temp 100.1 100.1 Pulse 80 84 Resp 20 20 B/P (MAP) 107/57 (74) 102/50 (67) Pulse Ox 98 98 92 O2 Delivery Ventilator Mechanical Ventilator Ventilator Ventilator 02/19/18 02/19/18 02/19/18 02/19/18 21:00 21:03 22:00 23:00 Pulse 112 112 94 90 Resp 24 16 18 B/P (MAP) 133/64 (87) 165/88 97/56 (70) 104/60 (75) Pulse Ox 95 95 98 O2 Delivery Ventilator Ventilator Ventilator 02/19/18 02/20/18 02/20/18 02/20/18 23:37 00:00 00:14 01:03 Temp 100.4 100.4 Pulse 89 89 Resp 20 24 B/P (MAP) 111/62 (78) 113/63 (80) Pulse Ox 92 96 95 O2 Delivery Ventilator Mechanical Ventilator Ventilator Ventilator 02/20/18 02/20/18 02/20/18 02/20/18 02:00 02:33 03:00 04:00 Temp 100.0 100.0 Pulse 90 91 83 Resp 20 20 20 B/P (MAP) 113/61 (78) 126/66 (86) 94/55 (68) Pulse Ox 95 92 94 96 O2 Delivery Ventilator Ventilator Ventilator Ventilator 02/20/18 02/20/18 02/20/18 02/20/18 04:00 05:04 05:31 06:00 Pulse 82 83 Resp 20 20 B/P (MAP) 100/55 (70) 100/53 (69) Pulse Ox 97 92 96 O2 Delivery Mechanical Ventilator Ventilator Ventilator Ventilator 02/20/18 02/20/18 02/20/18 02/20/18 07:00 07:28 08:00 08:00 Temp 99.5 99.5 Pulse 81 Resp 16 19 B/P (MAP) 94/53 (67) 99/56 (70) Pulse Ox 96 97 96 O2 Delivery Ventilator Ventilator Ventilator Mechanical Ventilator 02/20/18 02/20/18 09:00 09:00 Pulse 76 Resp 17 B/P (MAP) 94/53 94/53 (67) Pulse Ox 97 O2 Delivery Ventilator Intake and Output 02/19/18 02/19/18 02/20/18 15:01 23:01 07:01 Intake Total 380 ml 1839 ml 826 ml Output Total 75 ml 110 ml 72 ml Balance 305 ml 1729 ml 754 ml Nutrition Consultation Dietary Evaluation: Recommendations by RD: Increase Calorie Intake Comments: REC d/c TF rate per palliative care team plans are to withdrawl care sunday Expected Outcomes/Goals: comfort measures 02/18/18 Interpretation of weight loss: >10% in 6 months Malnutrition Findings: Body Fat Depletion (Non Severe: Mild Depletion Weight Status: Appropriate MADAN DRAKE MD Feb 20, 2018 09:39
--- NOTE | 2018-02-20 09:53 | PDOC ---
G I PROGRESS NOTE Subjective Sedated on ventilator. Objective Continued abnormal stool per rectal tube. Family meeting later this morning to determine goals of care. Physical Exam Abdomen soft, not distended. Review of Relevant I have reviewed the following items pat (where applicable) has been applied. Labs Laboratory Tests Test 02/19/18 07:45 02/20/18 08:15 O2 Saturation 94 % (92-99) Arterial Blood pH 7.44 (7.35-7.45) Arterial Blood pCO2 at Patient Temp 42 mmHg (35-46) Arterial Blood pO2 at Patient Temp 79 mmHg (65-108) Arterial Blood HCO3 28 mmol/L (21-28) Arterial Blood Base Excess 4 mmol/L (-3-3) FiO2 50 White Blood Count 18.4 x10^3/uL (4.0-11.0) Red Blood Count 1.75 x10^6/uL (3.50-5.40) Hemoglobin 5.4 g/dL (12.0-15.5) Hematocrit 15.5 % (36.0-47.0) Mean Corpuscular Volume 88 fL (79-100) Mean Corpuscular Hemoglobin 31 pg (25-35) Mean Corpuscular Hemoglobin Concent 35 g/dL (31-37) Red Cell Distribution Width 15.6 % (11.5-14.5) Platelet Count 481 x10^3/uL (140-400) Neutrophils (%) (Auto) 95 % (31-73) Lymphocytes (%) (Auto) 4 % (24-48) Monocytes (%) (Auto) 2 % (0-9) Eosinophils (%) (Auto) 0 % (0-3) Basophils (%) (Auto) 0 % (0-3) Neutrophils # (Auto) 17.4 x10^3uL (1.8-7.7) Lymphocytes # (Auto) 0.7 x10^3/uL (1.0-4.8) Monocytes # (Auto) 0.3 x10^3/uL (0.0-1.1) Eosinophils # (Auto) 0.0 x10^3/uL (0.0-0.7) Basophils # (Auto) 0.0 x10^3/uL (0.0-0.2) Sodium Level 140 mmol/L (136-145) Potassium Level 5.9 mmol/L (3.5-5.1) Chloride Level 102 mmol/L (98-107) Carbon Dioxide Level 27 mmol/L (21-32) Anion Gap 11 (6-14) Blood Urea Nitrogen 111 mg/dL (7-20) Creatinine 4.6 mg/dL (0.6-1.0) Estimated GFR (Cockcroft-Gault) 9.5 Glucose Level 162 mg/dL (70-99) Calcium Level 7.3 mg/dL (8.5-10.1) Laboratory Tests Test 02/20/18 08:15 White Blood Count 18.4 x10^3/uL (4.0-11.0) Red Blood Count 1.75 x10^6/uL (3.50-5.40) Hemoglobin 5.4 g/dL (12.0-15.5) Hematocrit 15.5 % (36.0-47.0) Mean Corpuscular Volume 88 fL (79-100) Mean Corpuscular Hemoglobin 31 pg (25-35) Mean Corpuscular Hemoglobin Concent 35 g/dL (31-37) Red Cell Distribution Width 15.6 % (11.5-14.5) Platelet Count 481 x10^3/uL (140-400) Neutrophils (%) (Auto) 95 % (31-73) Lymphocytes (%) (Auto) 4 % (24-48) Monocytes (%) (Auto) 2 % (0-9) Eosinophils (%) (Auto) 0 % (0-3) Basophils (%) (Auto) 0 % (0-3) Neutrophils # (Auto) 17.4 x10^3uL (1.8-7.7) Lymphocytes # (Auto) 0.7 x10^3/uL (1.0-4.8) Monocytes # (Auto) 0.3 x10^3/uL (0.0-1.1) Eosinophils # (Auto) 0.0 x10^3/uL (0.0-0.7) Basophils # (Auto) 0.0 x10^3/uL (0.0-0.2) Sodium Level 140 mmol/L (136-145) Potassium Level 5.9 mmol/L (3.5-5.1) Chloride Level 102 mmol/L (98-107) Carbon Dioxide Level 27 mmol/L (21-32) Anion Gap 11 (6-14) Blood Urea Nitrogen 111 mg/dL (7-20) Creatinine 4.6 mg/dL (0.6-1.0) Estimated GFR (Cockcroft-Gault) 9.5 Glucose Level 162 mg/dL (70-99) Calcium Level 7.3 mg/dL (8.5-10.1) Microbiology 02/12/18 Blood Culture - Final, Complete NO GROWTH AFTER 5 DAYS 02/10/18 - Final, Complete 02/10/18 - Final, Complete 02/10/18 - Final, Complete 02/10/18 Gram Stain Evaluation - Final, Complete 02/10/18 Sputum Culture - Final, Complete 02/10/18 Sputum Result 1 - Final, Complete 02/13/18 Urine Culture - Final, Complete 02/13/18 Urine Culture Result 1 (JESSICA) - Final, Complete Vitals/I & O Vital Sign - Last 24 Hours 02/19/18 02/19/18 02/19/18 02/19/18 10:00 11:00 11:33 12:00 Temp 98.1 98.1 Pulse 86 94 92 Resp 22 22 22 B/P (MAP) 97/57 (70) 99/60 (73) 116/65 (82) Pulse Ox 98 93 99 O2 Delivery Mechanical Ventilator 02/19/18 02/19/18 02/19/18 02/19/18 12:26 13:00 14:00 14:25 Pulse 93 103 Resp 22 22 22 B/P (MAP) 120/76 (91) 95/51 (66) Pulse Ox 92 95 98 98 O2 Delivery Ventilator Ventilator 02/19/18 02/19/18 02/19/18 02/19/18 14:55 15:00 16:00 16:00 Temp 97.7 97.7 Pulse 110 87 Resp 22 22 25 B/P (MAP) 86/53 (64) 88/56 (67) Pulse Ox 93 93 96 O2 Delivery Ventilator Mechanical Ventilator 02/19/18 02/19/18 02/19/18 02/19/18 16:36 17:21 17:51 18:26 Pulse 94 82 Resp 21 21 B/P (MAP) 87/51 (63) 84/50 (61) Pulse Ox 92 100 100 98 O2 Delivery Ventilator Ventilator 02/19/18 02/19/18 02/19/18/25/18 19:00 20:00 20:00 20:06 Temp 100.1 100.1 Pulse 80 84 Resp 20 20 B/P (MAP) 107/57 (74) 102/50 (67) Pulse Ox 98 98 92 O2 Delivery Ventilator Mechanical Ventilator Ventilator Ventilator 02/19/18 02/19/18 02/19/18 02/19/18 21:00 21:03 22:00 23:00 Pulse 112 112 94 90 Resp 24 16 18 B/P (MAP) 133/64 (87) 165/88 97/56 (70) 104/60 (75) Pulse Ox 95 95 98 O2 Delivery Ventilator Ventilator Ventilator 02/19/18 02/20/18 02/20/18 02/20/18 23:37 00:00 00:14 01:03 Temp 100.4 100.4 Pulse 89 89 Resp 20 24 B/P (MAP) 111/62 (78) 113/63 (80) Pulse Ox 92 96 95 O2 Delivery Ventilator Mechanical Ventilator Ventilator Ventilator 02/20/18 02/20/18 02/20/18 02/20/18 02:00 02:33 03:00 04:00 Temp 100.0 100.0 Pulse 90 91 83 Resp 20 20 20 B/P (MAP) 113/61 (78) 126/66 (86) 94/55 (68) Pulse Ox 95 92 94 96 O2 Delivery Ventilator Ventilator Ventilator Ventilator 02/20/18 02/20/18 02/20/18 02/20/18 04:00 05:04 05:31 06:00 Pulse 82 83 Resp 20 20 B/P (MAP) 100/55 (70) 100/53 (69) Pulse Ox 97 92 96 O2 Delivery Mechanical Ventilator Ventilator Ventilator Ventilator 02/20/18 02/20/18 02/20/18 02/20/18 07:00 07:28 08:00 08:00 Temp 99.5 99.5 Pulse 81 Resp 16 19 B/P (MAP) 94/53 (67) 99/56 (70) Pulse Ox 96 97 96 O2 Delivery Ventilator Ventilator Ventilator Mechanical Ventilator 02/20/18 02/20/18 09:00 09:00 Pulse 76 Resp 17 B/P (MAP) 94/53 94/53 (67) Pulse Ox 97 O2 Delivery Ventilator Intake and Output 02/19/18 02/19/18 02/20/18 15:01 23:01 07:01 Intake Total 380 ml 1839 ml 826 ml Output Total 75 ml 110 ml 72 ml Balance 305 ml 1729 ml 754 ml Problem List Problems Medical Problems: (1) CHF (congestive heart failure) Status: Acute (2) Elevated troponin Status: Acute (3) Heart failure Status: Acute (4) Respiratory failure Status: Acute (5) Shortness of breath Status: Acute Assessment MOSF Ongoing GI "ooze". Plan of Care: Continue current Tx, Mgmt Plan of Care Note Await family's decision re: continuing support. BETY BALDWIN MD Feb 20, 2018 09:53
[2018-02-20] MEDS: PROPOFOL 100 ML IV PRN (10:27)
--- NOTE | 2018-02-20 11:50 | PDOC2 ---
PALLIATIVE CARE Palliative Care Note Palliative CAre Patient remains intubated. On Fentanyl, Versed, Propofol. Levophed gtt. Met with daughter Shyla, aniya Cárdenas, Dae and Pancho. Reviewed current medical condition. They would like to proceed with comfort care after they have had family time. Comfort care reviewed with family. Shyla confirmed that patient did not want to be intubated and would not want to remain on machines and live in a facility the rest of her life. Dr. Dania lamb. Orders written for DNR, extubation and no re-intubation. Medication for comfort Above reviewed with Christiano RN Will proceed when family ready. AVERY SANDOVAL Feb 20, 2018 11:50
--- NOTE | 2018-02-20 11:56 | PDOC ---
SUBJECTIVE ROS Unresponsive OBJECTIVE Vital Signs Vital Signs Date Time Temp Pulse Resp B/P (MAP) Pulse Ox O2 Delivery O2 Flow Rate FiO2 02/20/18 11:09 22 95 Ventilator 02/20/18 11:00 161/88 (112) 02/20/18 09:00 76 02/20/18 08:00 99.5 99.5 I & 0 Intake and Output 02/20/18 07:01 Intake Total 3045 ml Output Total 262 ml Balance 2783 ml Intake Oral 0 ml IV Total 518 ml Tube Feeding 2327 ml Other 200 ml Output Urine Total 262 ml Gastric Drainage Total 0 ml PHYSICAL EXAM Physical Exam GENERAL: Intubated and sedated HEENT: Pupils small, ETT, OGT LUNGS: Clear to auscultation, anteriorly HEART: S1, S2. ABDOMEN: Obese, soft. N rectal tube GENITOURINARY: Indwelling Forman in place. EXTREMITIES: Generalized edema SKIN: No rash. NEUROLOGIC: Unresponsive/sedated DIAGNOSIS/ASSESSMENT Assessment & Plan ANGELICA - requiring HD Dialysis began 02/13/18 Family decided to withdraw care today Acute hypoxic respiratory failure - On vent COPD, Smoker Severe sepsis - with respiratory failure likely 2/2 pneumonia/bronchitis Acute diastolic heart failure Paroxysmal atrial fibrillation History of a previous CVA Acute metabolic encephalopathy secondary to multifactorial see above Will sign off,family made decision to withdraw care COMMENT/RELEVANT DATA Meds Current Medications Medications (Trade) Dose Ordered Sig/Sravan Start Time Stop Time Status Last Admin Dose Admin Acetaminophen (Tylenol Supp) 325 mg PRN Q6HRS PRN 02/09/18 06:45 02/09/18 09:30 325 MG Acetaminophen (Tylenol) 500 mg BID 02/09/18 10:00 02/09/18 10:16 DC Acetaminophen/ Hydrocodone Bitart (Lortab 10/325) 1 tab PRN Q4HRS PRN 02/09/18 09:00 Albumin Human 200 ml @ 200 mls/hr 1X PRN PRN 02/16/18 10:00 02/16/18 15:59 DC Albuterol Sulfate (Ventolin Neb Soln) 2.5 mg PRN Q4HRS PRN 02/15/18 19:00 Albuterol/ Ipratropium (Duoneb) 3 ml 1X ONCE 02/08/18 16:00 02/08/18 16:01 DC 12/14/18 17:14 3 ML Aspirin (Radha Aspirin) 325 mg DAILY 02/09/18 09:00 02/09/18 10:16 DC Aspirin (Children'S Aspirin) 81 mg DAILYWBKFT 02/12/18 16:15 02/20/18 08:27 81 MG Atorvastatin Calcium (Lipitor) 10 mg QHS 02/12/18 21:00 02/19/18 21:04 10 MG Budesonide (Pulmicort) 0.5 mg RTBID 02/09/18 08:00 02/20/18 07:28 0.5 MG Cefepime HCl (Maxipime) 1 gm QHS 02/13/18 21:00 02/13/18 21:00 DC Citalopram Hydrobromide (CeleXA) 40 mg QHS 02/09/18 21:00 02/09/18 21:00 DC Clonidine HCl (Catapres) 0.1 mg QHS 02/08/18 22:00 02/09/18 10:16 DC 02/08/18 22:05 0.1 MG Clopidogrel Bisulfate (Plavix) 75 mg DAILYWBKFT 02/13/18 16:00 02/20/18 08:26 75 MG Darbepoetin Ganesh (Aranesp) 60 mcg Mo 02/18/18 21:00 02/18/18 21:05 60 MCG Docusate Sodium (Colace) 100 mg BID 02/09/18 09:00 02/09/18 10:16 DC Ephedrine Sulfate (ePHEDrine PF IN SALINE SYRINGE) 50 mg STK-MED ONCE 02/09/18 07:00 02/11/18 07:43 DC Famotidine (Pepcid Vial) 20 mg QHS 02/09/18 21:00 02/13/18 14:47 DC 02/12/18 21:56 20 MG Fentanyl Citrate 30 ml @ 0 mls/hr CONT PRN 02/09/18 20:30 02/20/18 11:09 3.75 MLS/HR Furosemide (Lasix) 40 mg 1X ONCE 02/16/18 23:45 02/16/18 23:46 DC 02/16/18 23:42 40 MG Gabapentin (Neurontin) 300 mg TID 02/08/18 22:20 02/09/18 10:16 DC 02/08/18 22:08 300 MG Heparin Sodium (Porcine) (Heparin Sodium) 2,500 unit 1X ONCE 02/13/18 15:00 02/13/18 15:03 DC Heparin Sodium/ Dextrose 500 ml @ 0 mls/hr CONT PRN 02/08/18 17:30 02/13/18 08:22 DC 02/12/18 19:46 5.7 MLS/HR Hydrochlorothiazide (Microzide) 12.5 mg QHS 02/09/18 21:00 02/09/18 21:00 DC Info (Anti-Coagulation Monitoring By Pharmacy) 1 each PRN DAILY PRN 02/08/18 17:30 02/13/18 09:17 DC 02/11/18 12:25 1 EACH Info (PHARMACY MONITORING -- do not chart) 1 each PRN DAILY PRN 02/18/18 14:30 Ipratropium [place] (Atrovent) 0.5 mg RTQID 02/09/18 08:00 02/20/18 07:28 0.5 MG Labetalol HCl (Normodyne Iv Push) 20 mg PRN Q2HR PRN 02/12/18 16:15 02/18/18 15:53 20 MG Lidocaine/Sodium Bicarbonate (Buffered Lidocaine 1%) 4 ml 1X ONCE 02/13/18 14:45 02/13/18 14:52 DC 02/13/18 14:57 4 ML Linezolid/Dextrose 300 ml @ 300 mls/hr Q12HR 02/12/18 09:00 02/15/18 10:31 DC 02/15/18 08:32 300 MLS/HR Lorazepam (Ativan) 1 mg PRN Q4HRS PRN 02/08/18 21:30 02/15/18 04:02 1 MG Magnesium Hydroxide (Milk Of Magnesia) 400 mg DAILY 02/09/18 09:00 02/20/18 09:32 400 MG Magnesium Oxide (Magnesium Oxide) 400 mg DAILY 02/09/18 10:00 02/20/18 09:32 400 MG Magnesium Sulfate/ Dextrose 100 ml @ 25 mls/hr 1X ONCE 02/08/18 22:00 02/09/18 01:59 DC 02/08/18 22:03 25 MLS/HR Meropenem 500 mg/ Sodium Chloride 50 ml @ 100 mls/hr Q24H 02/13/18 16:00 02/19/18 15:57 100 MLS/HR Methylprednisolone Sodium Succinate (SOLU-Medrol 40MG VIAL) 40 mg Q12HR 02/10/18 09:00 02/20/18 09:33 40 MG Metoprolol Tartrate (Lopressor) 25 mg BID 02/13/18 11:00 02/19/18 21:03 25 MG Micafungin Sodium 100 mg/Dextrose 100 ml @ 100 mls/hr Q24H 02/12/18 10:00 02/15/18 10:31 DC 02/15/18 08:34 100 MLS/HR Midazolam HCl (Versed) 2 mg PRN Q15MIN PRN 02/20/18 11:45 Morphine Sulfate (Morphine Sulfate) 4 mg PRN Q4HRS PRN 02/08/18 21:30 02/09/18 19:45 4 MG Multi-Ingred Cream/Lotion/Oil/ Oint (Artificial Tears Eye Ointment) 1 benjamin PRN Q1HR PRN 02/17/18 07:45 Multivitamins (Thera M Plus) 1 tab DAILY 02/09/18 10:00 02/09/18 10:16 DC Nicotine (Nicoderm Cq 14mg) 1 patch DAILY 02/09/18 10:00 02/20/18 09:33 1 PATCH Non-Formulary Medication (Acetaminophen ) 1 tab BID 02/09/18 09:00 02/09/18 09:12 DC Non-Formulary Medication (Albuterol Sulfate (Albuterol Sulfate Neb Soln)) 1 vial QID 02/09/18 09:00 02/09/18 09:22 DC Non-Formulary Medication (Magnesium Oxide ) 1 tab DAILY 02/09/18 09:00 02/09/18 09:14 DC Non-Formulary Medication (Multivitamin (Multivitamins)) 1 tab DAILY 02/09/18 09:00 02/09/18 09:14 DC Non-Formulary Medication (Polyethylene Glycol 3350 (Miralax)) 1 packet DAILY 02/09/18 09:00 02/09/18 09:17 DC Norepinephrine Bitartrate 250 ml @ 1.875 mls/ hr CONT PRN 02/10/18 02:45 02/18/18 21:58 1.875 MLS/HR Ondansetron HCl (Zofran Odt) 4 mg Q6HRS 02/09/18 12:00 02/14/18 15:05 DC 02/14/18 05:52 4 MG Ondansetron HCl (Zofran) 4 mg PRN Q6HRS PRN 02/09/18 09:00 Oxycodone HCl (OxyCONTIN) 10 mg BID 02/09/18 09:00 02/09/18 10:16 DC Oxycodone/ Acetaminophen (Percocet 5/325) 1 tab BID 02/09/18 09:00 02/09/18 10:16 DC Pantoprazole Sodium (PROTONIX VIAL for IV PUSH) 40 mg BIDAC 02/13/18 16:30 02/20/18 08:27 40 MG Phenylephrine HCl (PHENYLEPHRINE in 0.9% NACL PF) 1 mg STK-MED ONCE 02/09/18 07:00 02/11/18 07:43 DC Piperacillin Sod/ Tazobactam Sod (Zosyn Per Pharmacy) 1 each PRN DAILY PRN 02/08/18 16:15 02/12/18 07:24 DC Piperacillin Sod/ Tazobactam Sod 2.25 gm/Sodium Chloride 50 ml @ 100 mls/hr Q6HRS 02/11/18 12:00 02/12/18 07:24 DC 02/12/18 05:47 100 MLS/HR Piperacillin Sod/ Tazobactam Sod 3.375 gm/Sodium Chloride 50 ml @ 100 mls/hr Q6HRS 02/09/18 00:00 02/11/18 07:14 DC 02/11/18 05:37 100 MLS/HR Polyethylene Glycol (miraLAX PACKET) 17 gm DAILY 02/09/18 10:00 02/09/18 10:16 DC Propofol (Diprivan) 200 mg STK-MED ONCE 02/09/18 07:00 02/11/18 07:43 DC Quetiapine Fumarate (SEROquel) 25 mg QHS 02/09/18 21:00 02/09/18 21:00 DC Rocuronium [place] (Zemuron) 50 mg STK-MED ONCE 02/09/18 21:00 02/11/18 08:22 DC Sodium Chloride 1,000 ml @ 400 mls/hr Q2H30M PRN 02/18/18 14:25 02/19/18 02:24 DC Sodium Chloride (Normal Saline Flush) 10 ml 1X PRN PRN 02/16/18 10:00 02/17/18 09:59 DC Succinylcholine Chloride (Anectine) 200 mg STK-MED ONCE 02/09/18 07:00 02/11/18 07:43 DC Tramadol HCl (Ultram) 50 mg PRN DAILY PRN 02/09/18 09:00 Vancomycin HCl (Vanco Per Pharmacy) 1 each PRN DAILY PRN 02/08/18 16:15 02/10/18 09:07 DC 02/09/18 08:59 1 EACH Vancomycin HCl (Vancomycin Trough Level) 1 each 1X ONCE 02/10/18 16:00 02/10/18 16:00 DC Vancomycin HCl 1.75 gm/Sodium Chloride 500 ml @ 250 mls/hr 1X ONCE 02/08/18 17:00 02/08/18 18:59 DC 02/08/18 16:36 250 MLS/HR Vancomycin HCl 1 gm/Sodium Chloride 250 ml @ 250 mls/hr Q24H 02/09/18 16:30 02/10/18 09:07 DC 02/09/18 16:30 250 MLS/HR Lab Laboratory Tests Test 02/20/18 08:15 White Blood Count 18.4 x10^3/uL (4.0-11.0) Red Blood Count 1.75 x10^6/uL (3.50-5.40) Hemoglobin 5.4 g/dL (12.0-15.5) Hematocrit 15.5 % (36.0-47.0) Mean Corpuscular Volume 88 fL (79-100) Mean Corpuscular Hemoglobin 31 pg (25-35) Mean Corpuscular Hemoglobin Concent 35 g/dL (31-37) Red Cell Distribution Width 15.6 % (11.5-14.5) Platelet Count 481 x10^3/uL (140-400) Neutrophils (%) (Auto) 95 % (31-73) Lymphocytes (%) (Auto) 4 % (24-48) Monocytes (%) (Auto) 2 % (0-9) Eosinophils (%) (Auto) 0 % (0-3) Basophils (%) (Auto) 0 % (0-3) Neutrophils # (Auto) 17.4 x10^3uL (1.8-7.7) Lymphocytes # (Auto) 0.7 x10^3/uL (1.0-4.8) Monocytes # (Auto) 0.3 x10^3/uL (0.0-1.1) Eosinophils # (Auto) 0.0 x10^3/uL (0.0-0.7) Basophils # (Auto) 0.0 x10^3/uL (0.0-0.2) Sodium Level 140 mmol/L (136-145) Potassium Level 5.9 mmol/L (3.5-5.1) Chloride Level 102 mmol/L (98-107) Carbon Dioxide Level 27 mmol/L (21-32) Anion Gap 11 (6-14) Blood Urea Nitrogen 111 mg/dL (7-20) Creatinine 4.6 mg/dL (0.6-1.0) Estimated GFR (Cockcroft-Gault) 9.5 Glucose Level 162 mg/dL (70-99) Calcium Level 7.3 mg/dL (8.5-10.1) Results All relevant outside records, renal labs, imaging studies, telemetry/EKG's were reviewed. VINH BLACKBURN MD Feb 20, 2018 11:56
[2018-02-20] MEDS: MIDAZOLAM HCL/PF 2 MG/2 ML VIAL. IV PRN ×5 (12:57→20:37)
[2018-02-20] MEDS: MORPHINE SULFATE 4 MG/ML VIAL. IV PRN ×2 (12:59→15:19)
[2018-02-20] MEDS: MEROPENEM 500 MG in IV NORMAL SALINE 50ML 50 ML IV SCH (16:00)
[2018-02-20] MEDS: MORPHINE SULFATE/PF 30 ML IV PRN ×2 (17:31→23:52)
[2018-02-20] MEDS: ATORVASTATIN CALCIUM 10 MG TABLET. PO SCH (20:33)
[2018-02-21] VITALS: BP 151/83
[2018-02-21 04:00] VITALS: BP 139/74
[2018-02-21] MEDS: MORPHINE SULFATE/PF 30 ML IV PRN ×2 (06:28→13:20)
[2018-02-21] MEDS: PANTOPRAZOLE IV PUSH 40 MG VIAL. IVP SCH ×2 (07:30→16:30)
[2018-02-21] MEDS: CLOPIDOGREL BISULFATE 75 MG TABLET PO SCH (07:52)
[2018-02-21] MEDS: METOPROLOL TART IMMED RELEASE 25 MG TABLET. PO SCH ×2 (07:52→21:00)
[2018-02-21] MEDS: methylPREDNISolone SOD SUCC PF 40 MG/ML VIAL. IV SCH ×2 (07:52→21:00)
[2018-02-21] MEDS: ASPIRIN CHEWABLE 81 MG TABLET. PO SCH (07:52)
[2018-02-21] MEDS: MAGNESIUM OXIDE 400 MG TABLET PO SCH (07:53)
[2018-02-21] MEDS: MAGNESIUM HYDROXIDE 2,400 MG/30 ML ORAL.SUSP. PO SCH (07:53)
[2018-02-21] MEDS: NICOTINE 14MG PATCH. TD SCH (07:53)
[2018-02-21 08:00] VITALS: BP 119/70
--- NOTE | 2018-02-21 09:21 | PDOC ---
PULMONARY PROGRESS NOTES Subjective PT EXTUBATED NOW MORPHINE DRIP Vitals Vital Signs Date Time Temp Pulse Resp B/P (MAP) Pulse Ox O2 Delivery O2 Flow Rate FiO2 02/21/18 08:00 98.0 108 18 119/70 (86) 75 Nasal Cannula 2.0 98.0 Lungs: Crackles Cardiovascular: S1, S2 Abdomen: Soft, Non-tender Extremities: No Edema Labs Laboratory Tests Test 02/20/18 08:15 White Blood Count 18.4 x10^3/uL (4.0-11.0) Red Blood Count 1.75 x10^6/uL (3.50-5.40) Hemoglobin 5.4 g/dL (12.0-15.5) Hematocrit 15.5 % (36.0-47.0) Mean Corpuscular Volume 88 fL (79-100) Mean Corpuscular Hemoglobin 31 pg (25-35) Mean Corpuscular Hemoglobin Concent 35 g/dL (31-37) Red Cell Distribution Width 15.6 % (11.5-14.5) Platelet Count 481 x10^3/uL (140-400) Neutrophils (%) (Auto) 95 % (31-73) Lymphocytes (%) (Auto) 4 % (24-48) Monocytes (%) (Auto) 2 % (0-9) Eosinophils (%) (Auto) 0 % (0-3) Basophils (%) (Auto) 0 % (0-3) Neutrophils # (Auto) 17.4 x10^3uL (1.8-7.7) Lymphocytes # (Auto) 0.7 x10^3/uL (1.0-4.8) Monocytes # (Auto) 0.3 x10^3/uL (0.0-1.1) Eosinophils # (Auto) 0.0 x10^3/uL (0.0-0.7) Basophils # (Auto) 0.0 x10^3/uL (0.0-0.2) Sodium Level 140 mmol/L (136-145) Potassium Level 5.9 mmol/L (3.5-5.1) Chloride Level 102 mmol/L (98-107) Carbon Dioxide Level 27 mmol/L (21-32) Anion Gap 11 (6-14) Blood Urea Nitrogen 111 mg/dL (7-20) Creatinine 4.6 mg/dL (0.6-1.0) Estimated GFR (Cockcroft-Gault) 9.5 Glucose Level 162 mg/dL (70-99) Calcium Level 7.3 mg/dL (8.5-10.1) Medications Active Scripts Medications Dose Route/Sig Max Daily Dose Days Date Category Zofran (Ondansetron Hcl) 4 Mg Tablet 1 Tab PO Q6HRS 09/20/17 Reported Milk Of Magnesia (Magnesium Hydroxide) 400 Mg/5 Ml Oral.susp 400 Mg PO 09/20/17 Reported Acetaminophen 500 Mg Tablet 1 Tab PO BID 09/20/17 Reported Clonidine Hcl 0.1 Mg Tablet 1 Tab PO QHS 09/20/17 Reported Tramadol Hcl 50 Mg Tablet 50 Mg PO DAILY PRN 09/20/17 Reported Hydralazine Hcl 20 Mg/1 Ml Vial 20 Mg IJ 09/20/17 Reported Gabapentin (Gabapentin) 300 Mg Capsule 300 Mg PO TID 09/20/17 Reported Acidophilus (Lactobacillus Acidophilus) 1 Each Capsule 1 Each PO 09/20/17 Reported Atorvastatin Calcium 10 Mg Tablet 1 Tab PO DAILY 09/20/17 Reported Vitamin C (Ascorbic Acid) 500 Mg Tablet.er 500 Mg PO 09/20/17 Reported Aspirin 325 Mg Tablet 1 Tab PO DAILY 09/20/17 Reported Colace (Docusate Sodium) 100 Mg Capsule 1 Cap PO BID 09/20/17 Reported Magnesium Oxide 400 Mg Tablet 1 Tab PO DAILY 09/20/17 Reported Multivitamins (Multivitamin) 1 Each Tablet 1 Tab PO DAILY 09/20/17 Reported NICODERM CQ 14mg (Nicotine) 1 Each Patch.td24 1 Patch TP DAILY 09/20/17 Reported Miralax (Polyethylene Glycol 3350) 17 Gm Powd.pack 1 Packet PO DAILY 09/20/17 Reported Albuterol Sulfate Neb Soln (Albuterol Sulfate) 0.63 Mg/3 Ml Vial.neb 1 Vial NEB QID 09/20/17 Reported Prednisone 20 Mg Tablet 1 Tab PO DAILY 09/20/17 Reported Percocet 5-325 Mg Tablet (Oxycodone/Acetaminophen) 1 Each Tablet 1 Tab PO BID 3 07/31/17 Rx Seroquel (Quetiapine Fumarate) 25 Mg Tablet 1 Tab PO QHS 10/21/16 Reported Hydrochlorothiazide Tablet (Hydrochlorothiazide) 12.5 Mg Tablet 1 Tab PO QHS 10/21/16 Reported Lexapro (Escitalopram Oxalate) 20 Mg Tablet 1 Tab PO QHS 10/21/16 Reported Hydrocodone-Apap 10-325 (Hydrocodone Bit/Acetaminophen) 1 Each Tablet 1 Tab PO PRN Q4HRS 10/21/16 Reported Oxycontin (Oxycodone HCl) 10 Mg Tab.er.12h 10 Mg PO BID 10/21/16 Reported Impression . IMPRESSION: 1. Acute hypoxemic respiratory failure secondary to acute diastolic congestive heart failure, non-ST elevation myocardial infarction/SEPSIS 2. Abnormal chest x-ray/CHF PNEUMONIA 3. Acute diastolic congestive heart failure. 4. Chronic obstructive pulmonary disease with mild acute exacerbation. 5. Acute bronchitis/ASPIRATION PNEUMONIA 6. Smoker. 7. Leukocytosis. 8. History of cerebrovascular accident. 9. hypotension 10. NSTEMI PER CARD 11. ACUTE RENAL FAILURE CXR 02/14 ET tube tip terminates approximately 4 cm above the sohan. Right IJ vascular catheter tip projects over the distal SVC. Enteric tube extends beyond the diaphragm tip is not visualized. Cardiomediastinal silhouette is stable. Left lung base parenchymal opacities are also stable. Patchy medial right lung base opacities are also grossly stable. No definite pleural effusion. No pneumothorax. Electronically signed by: Onur Valencia MD (02/13/2018 5:23 PM) [facility] Plan . ACTIVELY DYING WILL CONTINUE MORPHINE SPOKE JUDE DALE MD Feb 21, 2018 09:21
[2018-02-21 10:28] VITALS: BP 123/67
[2018-02-21 14:17] VITALS: BP 99/55
[2018-02-21] MEDS: MEROPENEM 500 MG in IV NORMAL SALINE 50ML 50 ML IV SCH (16:00)
[2018-02-21 19:54] VITALS: BP 75/39
--- NOTE | 2018-02-21 20:22 | PDOC ---
PROGRESS NOTES Chief Complaint Chief Complaint Acute hypoxic respiratory failure NOW IPPV (02/09/18), Spontaneous respiration on 40% O2, failed - returned to Ventilator assisted breathing AC22/450/50% 5 peep COPD, Smoker Severe sepsis - with respiratory failure likely 2/2 pneumonia/bronchitis, fever 102.6F, leukocytosis, tachycardia, Acute diastolic heart failure PAD - with carotid, AAA, renovascular disease NSTEMI - elevated troponin at 17. Paroxysmal atrial fibrillation History of a previous CVA Acute metabolic encephalopathy secondary to multifactorial see above ANGELICA, VMN - new (02/10/18) - Dialysis began 02/13/18 Acute anemia - multifactorial History of Present Illness History of Present Illness pt. was seen and examined in ICU Sedated with fentanyl, propofol. 02/18/18 on wean trial was only breathing 6 breaths per minute spontaneously. Spoke with nursing staff and daughter. Discussed palliative care as the patient made it clear she wished not to be intubated when I admitted her over a week ago. Family meeting on 02/20/18 resulted in extubation and wishes for limited lab draws and comfort measures only. Hb was 5.5 yesterday, family wishes to hold off on transfusion. Potassium 5.9. No overnight events. Some agonal breathing today. Vitals stable. Meeting with family bedside they have requested to have consultation with hospice. A/P: Acute hypoxic respiratory failure - known h/o COPD. S/p extubation 02/20/18. Weaned onto O2, stop aggressive care, comfort measures only Severe sepsis - with respiratory failure likely 2/2 pneumonia/bronchitis, fever 102.6F, leukocytosis, tachycardia, broad spectrum early antibiotics. Off meds now Acute diastolic heart failure - BNP of greater than 35,000. diuresis for pulmonary congestion helped, can give prn lasix for comfort for shortness of breath ANGELICA - likely vasomotor/sepsis, will f/u nephrology recs. Family made wish to withdraw dialysis PAD - with carotid, AAA, renovascular disease she definitely has CAD as well. Cont ASA, plavix NSTEMI - elevated troponin at 17. Comfort measures Paroxysmal atrial fibrillation. Now in sinus rhythm. on coumadin, INR subtherapeutic, Will start comfort measures. History of a previous CVA - now s/p bilateral CEA and treating afib. Comfort measures now Acute anemia - likely multifactorial, hemolyzing, GI blood loss and renal disease. Will hold off on transfusion, hemodynamically she is stable and family wishes to have comfort care now. FEN - NPO PPX - heparin-->scds DNR - comfort care Wards, critically ill with grim prognosis, family meeting, will refer to hospice services Vitals Vitals Vital Signs Date Time Temp Pulse Resp B/P (MAP) Pulse Ox O2 Delivery O2 Flow Rate FiO2 02/21/18 19:54 102.4 112 20 75/39 (51) 60 Nasal Cannula 2.0 102.4 Physical Exam Physical Exam GENERAL: Intubated and sedated HEENT: Pupils small, ETT, OGT LUNGS: Clear to auscultation, anteriorly HEART: S1, S2. ABDOMEN: Obese, soft. No grimace or guarding to palpation. Bowel sounds present. rectal tube GENITOURINARY: Indwelling Forman in place. EXTREMITIES: Generalized edema SKIN: Warm without rash. NEUROLOGIC: Unresponsive/sedated RIJ and HDC clean General: Other (intubated on a ventilator) Heart: Regular rate Lungs: Crackles Abdomen: Normal bowel sounds Extremities: No clubbing, No cyanosis, No edema, Normal pulses, No tenderness/ swelling Skin: No rashes, No breakdown, No significant lesion Assessment and Plan Assessmemt and Plan Problems Medical Problems: (1) CHF (congestive heart failure) Status: Acute (2) Elevated troponin Status: Acute (3) Heart failure Status: Acute (4) Respiratory failure Status: Acute (5) Shortness of breath Status: Acute Comment Review of Relevant I have reviewed the following items pat (where applicable) has been applied. Labs Laboratory Tests Test 02/20/18 08:15 White Blood Count 18.4 x10^3/uL (4.0-11.0) Red Blood Count 1.75 x10^6/uL (3.50-5.40) Hemoglobin 5.4 g/dL (12.0-15.5) Hematocrit 15.5 % (36.0-47.0) Mean Corpuscular Volume 88 fL (79-100) Mean Corpuscular Hemoglobin 31 pg (25-35) Mean Corpuscular Hemoglobin Concent 35 g/dL (31-37) Red Cell Distribution Width 15.6 % (11.5-14.5) Platelet Count 481 x10^3/uL (140-400) Neutrophils (%) (Auto) 95 % (31-73) Lymphocytes (%) (Auto) 4 % (24-48) Monocytes (%) (Auto) 2 % (0-9) Eosinophils (%) (Auto) 0 % (0-3) Basophils (%) (Auto) 0 % (0-3) Neutrophils # (Auto) 17.4 x10^3uL (1.8-7.7) Lymphocytes # (Auto) 0.7 x10^3/uL (1.0-4.8) Monocytes # (Auto) 0.3 x10^3/uL (0.0-1.1) Eosinophils # (Auto) 0.0 x10^3/uL (0.0-0.7) Basophils # (Auto) 0.0 x10^3/uL (0.0-0.2) Sodium Level 140 mmol/L (136-145) Potassium Level 5.9 mmol/L (3.5-5.1) Chloride Level 102 mmol/L (98-107) Carbon Dioxide Level 27 mmol/L (21-32) Anion Gap 11 (6-14) Blood Urea Nitrogen 111 mg/dL (7-20) Creatinine 4.6 mg/dL (0.6-1.0) Estimated GFR (Cockcroft-Gault) 9.5 Glucose Level 162 mg/dL (70-99) Calcium Level 7.3 mg/dL (8.5-10.1) Microbiology 02/12/18 Blood Culture - Final, Complete NO GROWTH AFTER 5 DAYS 02/10/18 - Final, Complete 02/10/18 - Final, Complete 02/10/18 - Final, Complete 02/10/18 Gram Stain Evaluation - Final, Complete 02/10/18 Sputum Culture - Final, Complete 02/10/18 Sputum Result 1 - Final, Complete 02/13/18 Urine Culture - Final, Complete 02/13/18 Urine Culture Result 1 (JESSICA) - Final, Complete Medications Current Medications Albuterol/ Ipratropium (Duoneb) 3 ml 1X ONCE NEB Last administered on at 17:14; Start 02/08/18 at 16:00; Stop 02/08/18 at 16:01; Status DC Vancomycin HCl (Vanco Per Pharmacy) 1 each PRN DAILY PRN MC SEE COMMENTS Last administered on 02/09/18at 08:59; Start 02/08/18 at 16:15; Stop 02/10/18 at 09 :07; Status DC Piperacillin Sod/ Tazobactam Sod (Zosyn Per Pharmacy) 1 each PRN DAILY PRN MC SEE COMMENTS; Start 02/08/18 at 16:15; Stop 02/12/18 at 07:24; Status DC Vancomycin HCl 1.75 gm/Sodium Chloride 500 ml @ 250 mls/hr 1X ONCE IV Last administered on 02/08/18at 16:36; Start 02/08/18 at 17:00; Stop 02/08/18 at 18 :59; Status DC Piperacillin Sod/ Tazobactam Sod 3.375 gm/Sodium Chloride 50 ml @ 100 mls/hr 1X ONCE IV Last administered on 02/08/18at 16:36; Start 02/08/18 at 16:30; Stop 02/08/18 at 16:59; Status DC Furosemide (Lasix) 20 mg 1X ONCE IVP Last administered on 02/08/18at 16:36; Start 02/08/18 at 16:30; Stop 02/08/18 at 16:31; Status DC Aspirin (Children'S Aspirin) 324 mg 1X ONCE PO Last administered on at 16:36; Start 02/08/18 at 16:30; Stop 02/08/18 at 16:31; Status DC Furosemide (Lasix) 20 mg 1X ONCE IVP Last administered on 02/08/18at 18:07; Start 02/08/18 at 17:00; Stop 02/08/18 at 17:01; Status DC Ondansetron HCl (Zofran) 4 mg 1X ONCE IV Last administered on 02/08/18at 17:00 ; Start 02/08/18 at 17:00; Stop 02/08/18 at 17:01; Status DC Ondansetron HCl (Zofran) 4 mg STK-MED ONCE .ROUTE ; Start 02/08/18 at 16:51; Stop 02/08/18 at 16:52; Status DC Heparin Sodium/ Dextrose 500 ml @ 0 mls/hr CONT PRN IV SEE I/O RECORD; Start 02/08/18 at 17:30; Status UNV Info (Anti-Coagulation Monitoring By Pharmacy) 1 each PRN DAILY PRN MC SEE COMMENTS Last administered on 02/11/18at 12:25; Start 02/08/18 at 17:30; Stop 02/13/18 at 09:17; Status DC Heparin Sodium/ Dextrose 500 ml @ 0 mls/hr CONT PRN IV SEE I/O RECORD Last administered on 02/12/18at 19:46; Start 02/08/18 at 17:30; Stop 02/13/18 at 08 :22; Status DC Heparin Sodium (Porcine) (Heparin Sodium) 1,800 unit PRN Q6HRS PRN IV FOR UFH LEVEL LESS THAN 0.2 Last administered on 02/08/18at 20:10; Start 02/08/18 at 17 :30; Stop 02/13/18 at 08:22; Status DC Ondansetron HCl (Zofran) 4 mg 1X PRN PRN IV NAUSEA/VOMITING; Start 02/08/18 at 18:00; Stop 02/09/18 at 09:06; Status DC Piperacillin Sod/ Tazobactam Sod 3.375 gm/Sodium Chloride 50 ml @ 100 mls/hr Q6HRS IV Last administered on 02/11/18at 05:37; Start 02/09/18 at 00:00; Stop 02/11/18 at 07:14; Status DC Vancomycin HCl 1 gm/Sodium Chloride 250 ml @ 250 mls/hr Q24H IV Last administered on 02/09/18at 16:30; Start 02/09/18 at 16:30; Stop 02/10/18 at 09 :07; Status DC Vancomycin HCl (Vancomycin Trough Level) 1 each 1X ONCE MC ; Start 02/10/18 at 16:00; Stop 02/10/18 at 16:00; Status DC Magnesium Sulfate/ Dextrose 100 ml @ 25 mls/hr 1X ONCE IV Last administered on 02/08/18at 22:03; Start 02/08/18 at 22:00; Stop 02/09/18 at 01:59; Status DC Aspirin (Radha Aspirin) 325 mg DAILY PO ; Start 02/09/18 at 09:00; Stop at 10:16; Status DC Atorvastatin Calcium (Lipitor) 10 mg HS PO ; Start 02/09/18 at 21:00; Stop at 21:00; Status DC Clonidine HCl (Catapres) 0.1 mg QHS PO Last administered on 02/08/18at 22:05; Start 02/08/18 at 22:00; Stop 02/09/18 at 10:16; Status DC Docusate Sodium (Colace) 100 mg BID PO ; Start 02/09/18 at 09:00; Stop at 10:16; Status DC Gabapentin (Neurontin) 300 mg TID PO Last administered on 02/08/18at 22:08; Start 02/08/18 at 22:20; Stop 02/09/18 at 10:16; Status DC Labetalol HCl (Normodyne Iv Push) 10 mg PRN Q2HR PRN IVP HYPERTENSION, SEE COMMENTS Last administered on 02/12/18at 15:12; Start 02/08/18 at 21:30; Stop 02/12/18 at 16:22; Status DC Lorazepam (Ativan) 1 mg PRN Q4HRS PRN IV ANXIETY / AGITATION Last administered on 02/15/18at 04:02; Start 02/08/18 at 21:30; Stop 02/21/18 at 15:42; Status DC Morphine Sulfate (Morphine Sulfate) 4 mg PRN Q4HRS PRN IV PAIN Last administered on 02/09/18at 19:45; Start 02/08/18 at 21:30; Stop 02/20/18 at 17 :06; Status DC Acetaminophen (Tylenol Supp) 325 mg PRN Q6HRS PRN NV MILD PAIN / TEMP Last administered on 02/09/18at 09:30; Start 02/09/18 at 06:45 Ipratropium Hannibal (Atrovent) 0.5 mg RTQID NEB Last administered on at 07:28; Start 02/09/18 at 08:00 Budesonide (Pulmicort) 0.5 mg RTBID NEB Last administered on 02/20/18at 07:28; Start 02/09/18 at 08:00 Famotidine (Pepcid Vial) 20 mg QHS IVP Last administered on 02/12/18at 21:56; Start 02/09/18 at 21:00; Stop 02/13/18 at 14:47; Status DC Acetaminophen (Tylenol) 500 mg PRN Q6HRS PRN PO FEVER/KUO Last administered on 02/14/18at 17:23; Start 02/09/18 at 09:00 Ondansetron HCl (Zofran) 4 mg PRN Q6HRS PRN IV NAUSEA/VOMITING; Start at 09:00 Ondansetron HCl (Zofran Odt) 4 mg PRN Q6HRS PRN PO NAUSEA/VOMITING; Start at 09:00 Acetaminophen/ Hydrocodone Bitart (Lortab 10/325) 1 tab PRN Q4HRS PRN PO MODERATE PAIN; Start 02/09/18 at 09:00 Magnesium Hydroxide (Milk Of Magnesia) 400 mg DAILY PO Last administered on at 09:32; Start 02/09/18 at 09:00 Oxycodone HCl (OxyCONTIN) 10 mg BID PO ; Start 02/09/18 at 09:00; Stop at 10:16; Status DC Oxycodone/ Acetaminophen (Percocet 5/325) 1 tab BID PO ; Start 02/09/18 at 09: 00; Stop 02/09/18 at 10:16; Status DC Tramadol HCl (Ultram) 50 mg PRN DAILY PRN PO MILD PAIN; Start 02/09/18 at 09: 00 Non-Formulary Medication (Acetaminophen ) 1 tab BID PO ; Start 02/09/18 at 09: 00; Stop 02/09/18 at 09:12; Status DC Non-Formulary Medication (Albuterol Sulfate (Albuterol Sulfate Neb Soln)) 1 vial QID NEB ; Start 02/09/18 at 09:00; Stop 02/09/18 at 09:22; Status DC Citalopram Hydrobromide (CeleXA) 40 mg QHS PO ; Start 02/09/18 at 21:00; Stop 02/09/18 at 21:00; Status DC Hydrochlorothiazide (Microzide) 12.5 mg QHS PO ; Start 02/09/18 at 21:00; Stop 02/09/18 at 21:00; Status DC Non-Formulary Medication (Magnesium Oxide ) 1 tab DAILY PO ; Start 02/09/18 at 09:00; Stop 02/09/18 at 09:14; Status DC Non-Formulary Medication (Multivitamin (Multivitamins)) 1 tab DAILY PO ; Start 02/09/18 at 09:00; Stop 02/09/18 at 09:14; Status DC Nicotine (Nicoderm Cq 14mg) 1 patch DAILY TD Last administered on 02/20/18at 09 :33; Start 02/09/18 at 10:00 Ondansetron HCl (Zofran Odt) 4 mg Q6HRS PO Last administered on 02/14/18at 05: 52; Start 02/09/18 at 12:00; Stop 02/14/18 at 15:05; Status DC Non-Formulary Medication (Polyethylene Glycol 3350 (Miralax)) 1 packet DAILY PO ; Start 02/09/18 at 09:00; Stop 02/09/18 at 09:17; Status DC Quetiapine Fumarate (SEROquel) 25 mg QHS PO ; Start 02/09/18 at 21:00; Stop at 21:00; Status DC Labetalol HCl (Normodyne Iv Push) 10 mg PRN Q2HR PRN IVP HYPERTENSION, SEE COMMENTS; Start 02/09/18 at 09:00; Stop 02/09/18 at 09:06; Status DC Acetaminophen (Tylenol) 500 mg BID PO ; Start 02/09/18 at 10:00; Stop at 10:16; Status DC Magnesium Oxide (Magnesium Oxide) 400 mg DAILY PO Last administered on at 09:32; Start 02/09/18 at 10:00 Multivitamins (Thera M Plus) 1 tab DAILY PO ; Start 02/09/18 at 10:00; Stop at 10:16; Status DC Polyethylene Glycol (miraLAX PACKET) 17 gm DAILY PO ; Start 02/09/18 at 10:00; Stop 02/09/18 at 10:16; Status DC Albuterol Sulfate (Ventolin Neb Soln) 2.5 mg RTQID NEB Last administered on at 10:45; Start 02/09/18 at 12:00; Stop 02/15/18 at 18:59; Status DC Furosemide (Lasix) 60 mg 1X ONCE IVP Last administered on 02/09/18at 20:16; Start 02/09/18 at 20:00; Stop 02/09/18 at 20:01; Status DC Rocuronium Hannibal (Zemuron) 50 mg STK-MED ONCE .ROUTE ; Start 02/09/18 at 20: 23; Stop 02/09/18 at 20:24; Status DC Fentanyl Citrate 30 ml @ 0 mls/hr CONT PRN IV SEE PROTOCOL Last administered on 02/21/18at 15:55; Start 02/09/18 at 20:30 Propofol 100 ml @ 0 mls/hr CONT PRN IV SEE PROTOCOL Last administered on at 10:27; Start 02/09/18 at 20:30; Stop 02/21/18 at 09:14; Status DC Midazolam HCl 100 ml @ 5 mls/hr CONT PRN IV SEE I/O RECORD Last administered on 02/12/18at 03:38; Start 02/09/18 at 22:00; Stop 02/13/18 at 17:22; Status DC Norepinephrine Bitartrate 250 ml @ As Directed STK-MED ONCE IV ; Start at 02:33; Stop 02/10/18 at 02:35; Status DC Norepinephrine Bitartrate 250 ml @ 1.875 mls/ hr CONT PRN IV SEE I/O RECORD Last administered on 02/18/18at 21:58; Start 02/10/18 at 02:45; Stop 02/21/18 at 09:14; Status DC Methylprednisolone Sodium Succinate (SOLU-Medrol 40MG VIAL) 40 mg Q12HR IV Last administered on 02/20/18at 20:37; Start 02/10/18 at 09:00 Piperacillin Sod/ Tazobactam Sod 2.25 gm/Sodium Chloride 50 ml @ 100 mls/hr Q6HRS IV Last administered on 02/12/18at 05:47; Start 02/11/18 at 12:00; Stop 02/12/18 at 07:24; Status DC Propofol (Diprivan) 200 mg STK-MED ONCE IV ; Start 02/09/18 at 07:00; Stop at 07:43; Status DC Succinylcholine Chloride (Anectine) 200 mg STK-MED ONCE .ROUTE ; Start at 07:00; Stop 02/11/18 at 07:43; Status DC Phenylephrine HCl (PHENYLEPHRINE in 0.9% NACL PF) 1 mg STK-MED ONCE IV ; Start 02/09/18 at 07:00; Stop 02/11/18 at 07:43; Status DC Ephedrine Sulfate (ePHEDrine PF IN SALINE SYRINGE) 50 mg STK-MED ONCE IV ; Start 02/09/18 at 07:00; Stop 02/11/18 at 07:43; Status DC Rocuronium Hannibal (Zemuron) 50 mg STK-MED ONCE .ROUTE ; Start 02/09/18 at 21: 00; Stop 02/11/18 at 08:22; Status DC Linezolid/Dextrose 300 ml @ 300 mls/hr Q12HR IV Last administered on at 08:32; Start 02/12/18 at 09:00; Stop 02/15/18 at 10:31; Status DC Micafungin Sodium 100 mg/Dextrose 100 ml @ 100 mls/hr Q24H IV Last administered on 02/15/18at 08:34; Start 02/12/18 at 10:00; Stop 02/15/18 at 10 :31; Status DC Cefepime HCl (Maxipime) 1 gm Q12HR IVP Last administered on 02/13/18at 08:19; Start 02/12/18 at 09:00; Stop 02/13/18 at 10:56; Status DC Atorvastatin Calcium (Lipitor) 10 mg QHS PO Last administered on 02/19/18at 21: 04; Start 02/12/18 at 21:00 Labetalol HCl (Normodyne Iv Push) 20 mg PRN Q2HR PRN IVP HYPERTENSION, SEE COMMENTS Last administered on 02/18/18at 15:53; Start 02/12/18 at 16:15 Aspirin (Children'S Aspirin) 81 mg DAILYWBKFT PO Last administered on at 08:27; Start 02/12/18 at 16:15 Metoprolol Tartrate (Lopressor) 25 mg BID PO Last administered on 02/19/18at 21 :03; Start 02/13/18 at 11:00 Cefepime HCl (Maxipime) 1 gm QHS IVP ; Start 02/13/18 at 21:00; Stop 02/13/18 at 21:00; Status DC Lidocaine/Sodium Bicarbonate (Buffered Lidocaine 1%) 3 ml STK-MED ONCE .ROUTE ; Start 02/13/18 at 13:32; Stop 02/13/18 at 13:33; Status DC Heparin Sodium (Porcine) (Heparin Sodium) 10,000 unit STK-MED ONCE .ROUTE ; Start 02/13/18 at 13:32; Stop 02/13/18 at 13:33; Status DC Midazolam HCl (Versed) 5 mg STK-MED ONCE .ROUTE ; Start 02/13/18 at 14:04; Stop 02/13/18 at 14:05; Status DC Midazolam HCl (Versed) 5 mg 1X ONCE IV Last administered on 02/13/18at 14:10; Start 02/13/18 at 14:15; Stop 02/13/18 at 14:16; Status DC Lidocaine/Sodium Bicarbonate (Buffered Lidocaine 1%) 4 ml 1X ONCE INJ Last administered on 02/13/18at 14:57; Start 02/13/18 at 14:45; Stop 02/13/18 at 14 :52; Status DC Heparin Sodium (Porcine) (Heparin Sodium) 2,200 unit 1X ONCE INT CAT Last administered on 02/13/18at 15:02; Start 02/13/18 at 14:45; Stop 02/13/18 at 14 :52; Status DC Pantoprazole Sodium (PROTONIX VIAL for IV PUSH) 40 mg BIDAC IVP Last administered on 02/20/18at 08:27; Start 02/13/18 at 16:30 Heparin Sodium (Porcine) (Heparin Sodium) 2,500 unit 1X ONCE INT CAT ; Start 02/13/18 at 15:00; Stop 02/13/18 at 15:03; Status DC Meropenem 500 mg/ Sodium Chloride 50 ml @ 100 mls/hr Q24H IV Last administered on 02/19/18at 15:57; Start 02/13/18 at 16:00 Midazolam HCl 100 ml @ 5 mls/hr CONT PRN IV SEE I/O RECORD Last administered on 02/19/18at 23:51; Start 02/13/18 at 15:15; Stop 02/21/18 at 09:14; Status DC Midazolam HCl (Versed) 5 mg STK-MED ONCE .ROUTE ; Start 02/13/18 at 15:15; Stop 02/13/18 at 15:16; Status DC Clopidogrel Bisulfate (Plavix) 75 mg DAILYWBKFT PO Last administered on at 08:26; Start 02/13/18 at 16:00 Sodium Chloride 1,000 ml @ 1,000 mls/hr Q1H PRN IV hypotension; Start at 19:27; Stop 02/14/18 at 01:26; Status DC Albumin Human 200 ml @ 200 mls/hr 1X PRN PRN IV Hypotension; Start 02/13/18 at 19:30; Stop 02/14/18 at 01:29; Status DC Sodium Chloride 1,000 ml @ 400 mls/hr Q2H30M PRN IV PATENCY; Start 02/13/18 at 19:27; Stop 02/14/18 at 07:26; Status DC Info (PHARMACY MONITORING -- do not chart) 1 each PRN DAILY PRN MC SEE COMMENTS ; Start 02/13/18 at 19:30; Stop 02/16/18 at 15:59; Status DC Info (PHARMACY MONITORING -- do not chart) 1 each PRN DAILY PRN MC SEE COMMENTS ; Start 02/13/18 at 19:30; Status UNV Sodium Chloride 1,000 ml @ 1,000 mls/hr Q1H PRN IV hypotension; Start at 08:16; Stop 02/14/18 at 14:15; Status DC Sodium Chloride 1,000 ml @ 400 mls/hr Q2H30M PRN IV PATENCY; Start 02/14/18 at 08:16; Stop 02/14/18 at 20:15; Status DC Info (PHARMACY MONITORING -- do not chart) 1 each PRN DAILY PRN MC SEE COMMENTS ; Start 02/14/18 at 08:30; Status UNV Midazolam HCl (Versed) 5 mg STK-MED ONCE .ROUTE ; Start 02/13/18 at 15:30; Stop 02/14/18 at 09:00; Status DC Albuterol Sulfate (Ventolin Neb Soln) 2.5 mg PRN Q4HRS PRN NEB SHORTNESS OF BREATH; Start 02/15/18 at 19:00 Albumin Human 200 ml @ 200 mls/hr 1X PRN PRN IV Hypotension; Start 02/16/18 at 10:00; Stop 02/16/18 at 15:59; Status DC Sodium Chloride (Normal Saline Flush) 10 ml 1X PRN PRN IV AP catheter pack; Start 02/16/18 at 10:00; Stop 02/17/18 at 09:59; Status DC Sodium Chloride (Normal Saline Flush) 10 ml 1X PRN PRN IV CLIENT SERVICES ASSISTANT catheter pack; Start 02/16/18 at 10:00; Stop 02/17/18 at 09:59; Status DC Info (PHARMACY MONITORING -- do not chart) 1 each PRN DAILY PRN MC SEE COMMENTS ; Start 02/16/18 at 12:45; Stop 02/19/18 at 12:58; Status DC Info (PHARMACY MONITORING -- do not chart) 1 each PRN DAILY PRN MC SEE COMMENTS ; Start 02/16/18 at 12:45; Status UNV Furosemide (Lasix) 40 mg 1X ONCE IVP Last administered on 02/16/18at 23:42; Start 02/16/18 at 23:45; Stop 02/16/18 at 23:46; Status DC Multi-Ingred Cream/Lotion/Oil/ Oint (Artificial Tears Eye Ointment) 1 benjamin PRN Q1HR PRN OU DRY EYE; Start 02/17/18 at 07:45 Darbepoetin Ganesh (Aranesp) 60 mcg Mo SQ Last administered on 02/18/18at 21:05; Start 02/18/18 at 21:00 Sodium Chloride 1,000 ml @ 1,000 mls/hr Q1H PRN IV hypotension; Start at 14:25; Stop 02/18/18 at 20:24; Status DC Sodium Chloride 1,000 ml @ 400 mls/hr Q2H30M PRN IV PATENCY; Start 02/18/18 at 14:25; Stop 02/19/18 at 02:24; Status DC Info (PHARMACY MONITORING -- do not chart) 1 each PRN DAILY PRN MC SEE COMMENTS ; Start 02/18/18 at 14:30 Midazolam HCl (Versed) 2 mg PRN Q15MIN PRN IV ANXIETY / AGITATION Last administered on 02/20/18at 20:37; Start 02/20/18 at 11:45 Morphine Sulfate (Morphine Sulfate) 2 mg PRN Q1HR PRN IV BREAKTHRU PAIN Last administered on 02/20/18at 15:19; Start 02/20/18 at 12:45; Stop 02/20/18 at 17 :06; Status DC Morphine Sulfate 30 ml @ 0 mls/hr CONT PRN PRN IV PER PROTOCOL Last administered on 02/21/18at 13:20; Start 02/20/18 at 17:00 Active Scripts Active Percocet 5-325 Mg Tablet (Oxycodone/Acetaminophen) 1 Each Tablet 1 Tab PO BID 3 Days Reported Zofran (Ondansetron Hcl) 4 Mg Tablet 1 Tab PO Q6HRS Milk Of Magnesia (Magnesium Hydroxide) 400 Mg/5 Ml Oral.susp 400 Mg PO Acetaminophen 500 Mg Tablet 1 Tab PO BID Clonidine Hcl 0.1 Mg Tablet 1 Tab PO QHS Tramadol Hcl 50 Mg Tablet 50 Mg PO DAILY PRN Hydralazine Hcl 20 Mg/1 Ml Vial 20 Mg IJ Gabapentin (Gabapentin) 300 Mg Capsule 300 Mg PO TID Acidophilus (Lactobacillus Acidophilus) 1 Each Capsule 1 Each PO Atorvastatin Calcium 10 Mg Tablet 1 Tab PO DAILY Vitamin C (Ascorbic Acid) 500 Mg Tablet.er 500 Mg PO Aspirin 325 Mg Tablet 1 Tab PO DAILY Colace (Docusate Sodium) 100 Mg Capsule 1 Cap PO BID Magnesium Oxide 400 Mg Tablet 1 Tab PO DAILY Multivitamins (Multivitamin) 1 Each Tablet 1 Tab PO DAILY NICODERM CQ 14mg (Nicotine) 1 Each Patch.td24 1 Patch TP DAILY Miralax (Polyethylene Glycol 3350) 17 Gm Powd.pack 1 Packet PO DAILY Albuterol Sulfate Neb Soln (Albuterol Sulfate) 0.63 Mg/3 Ml Vial.neb 1 Vial NEB QID Prednisone 20 Mg Tablet 1 Tab PO DAILY Seroquel (Quetiapine Fumarate) 25 Mg Tablet 1 Tab PO QHS Hydrochlorothiazide Tablet (Hydrochlorothiazide) 12.5 Mg Tablet 1 Tab PO QHS Lexapro (Escitalopram Oxalate) 20 Mg Tablet 1 Tab PO QHS Hydrocodone-Apap 10-325 (Hydrocodone Bit/Acetaminophen) 1 Each Tablet 1 Tab PO PRN Q4HRS Oxycontin (Oxycodone HCl) 10 Mg Tab.er.12h 10 Mg PO BID Vitals/I & O Vital Sign - Last 24 Hours 02/20/18 02/20/18 02/21/18 02/21/18 22:27 23:52 00:00 00:30 Temp 98.7 98.7 Pulse 118 Resp 22 23 22 27 B/P (MAP) 151/83 (105) Pulse Ox 79 O2 Delivery Nasal Cannula Nasal Cannula Nasal Cannula Nasal Cannula O2 Flow Rate 2.0 2.0 2.0 02/21/18 02/21/18 02/21/18 02/21/18 04:00 04:31 05:00 06:28 Temp 98.2 98.2 Pulse 115 Resp 21 18 19 16 B/P (MAP) 139/74 (95) Pulse Ox 76 O2 Delivery Nasal Cannula Nasal Cannula Nasal Cannula Nasal Cannula O2 Flow Rate 2.0 2.0 2.0 02/21/18 02/21/18 02/21/18 02/21/18 08:00 10:14 10:28 14:17 Temp 98.0 97.5 98.9 98.0 97.5 98.9 Pulse 108 114 117 Resp 18 20 26 B/P (MAP) 119/70 (86) 123/67 (85) 99/55 (70) Pulse Ox 75 75 68 62 O2 Delivery Nasal Cannula Nasal Cannula Nasal Cannula Nasal Cannula O2 Flow Rate 2.0 2.0 2.0 2.0 02/21/18 19:54 Temp 102.4 102.4 Pulse 112 Resp 20 B/P (MAP) 75/39 (51) Pulse Ox 60 O2 Delivery Nasal Cannula O2 Flow Rate 2.0 Intake and Output 02/20/18 02/20/18 02/21/18 15:01 23:01 07:01 Intake Total 469 ml 65.49 ml 343 ml Output Total 55 ml 100 ml 750 ml Balance 414 ml -34.51 ml -407 ml Nutrition Consultation Dietary Evaluation: Recommendations by RD: Increase Calorie Intake Comments: REC d/c TF rate per palliative care team plans are to withdrawl care sunday Expected Outcomes/Goals: comfort measures 02/18/18 Interpretation of weight loss: >10% in 6 months Malnutrition Findings: Body Fat Depletion (Non Severe: Mild Depletion Weight Status: Appropriate MADAN DRAKE MD Feb 21, 2018 20:22
[2018-02-21] MEDS: ATORVASTATIN CALCIUM 10 MG TABLET. PO SCH (21:00)
--- NOTE | 2018-02-22 07:29 | PDOC3 ---
Discharge Summary Visit Information Date of Admission: Feb 08, 2018 Date of Discharge: Feb 22, 2018 Admitting Diagnosis: Hypoxic respiratory failure Final Diagnosis Problems Medical Problems: (1) CHF (congestive heart failure) Status: Acute (2) Elevated troponin Status: Acute (3) Heart failure Status: Acute (4) Respiratory failure Status: Acute (5) Shortness of breath Status: Acute Brief Hospital Course Allergies Allergies Coded Allergies Type Severity Reaction Last Updated Verified No Known Medication Allergies Allergy Unknown 02/20/18 Yes NSAIDS (Non-Steroidal Anti-Inflamma Adverse Reaction Mild Diarrhea 09/20/17 Yes codeine Adverse Reaction Mild Nausea and Vomiting 09/20/17 Yes metronidazole Adverse Reaction Mild Nausea and Vomiting 09/20/17 Yes Vital Signs Vital Signs Date Time Temp Pulse Resp B/P (MAP) Pulse Ox O2 Delivery O2 Flow Rate FiO2 02/21/18 19:54 102.4 112 20 75/39 (51) 60 Nasal Cannula 2.0 102.4 Lab Results Laboratory Tests Test 02/20/18 08:15 White Blood Count 18.4 x10^3/uL (4.0-11.0) Red Blood Count 1.75 x10^6/uL (3.50-5.40) Hemoglobin 5.4 g/dL (12.0-15.5) Hematocrit 15.5 % (36.0-47.0) Mean Corpuscular Volume 88 fL (79-100) Mean Corpuscular Hemoglobin 31 pg (25-35) Mean Corpuscular Hemoglobin Concent 35 g/dL (31-37) Red Cell Distribution Width 15.6 % (11.5-14.5) Platelet Count 481 x10^3/uL (140-400) Neutrophils (%) (Auto) 95 % (31-73) Lymphocytes (%) (Auto) 4 % (24-48) Monocytes (%) (Auto) 2 % (0-9) Eosinophils (%) (Auto) 0 % (0-3) Basophils (%) (Auto) 0 % (0-3) Neutrophils # (Auto) 17.4 x10^3uL (1.8-7.7) Lymphocytes # (Auto) 0.7 x10^3/uL (1.0-4.8) Monocytes # (Auto) 0.3 x10^3/uL (0.0-1.1) Eosinophils # (Auto) 0.0 x10^3/uL (0.0-0.7) Basophils # (Auto) 0.0 x10^3/uL (0.0-0.2) Sodium Level 140 mmol/L (136-145) Potassium Level 5.9 mmol/L (3.5-5.1) Chloride Level 102 mmol/L (98-107) Carbon Dioxide Level 27 mmol/L (21-32) Anion Gap 11 (6-14) Blood Urea Nitrogen 111 mg/dL (7-20) Creatinine 4.6 mg/dL (0.6-1.0) Estimated GFR (Cockcroft-Gault) 9.5 Glucose Level 162 mg/dL (70-99) Calcium Level 7.3 mg/dL (8.5-10.1) Brief Hospital Course Ms. Yee was a 67-year-old female w/ PMHx COPD, PAD, paroxysmal afib on coumadin who presented to the emergency department 02/08/18 with acute hypoxic respiratory failure. On arrival she was placed on BiPAP which improved her work of breathing. She was quite tachycardic and with labored breathing. EKG initially obtained showed artifact but did not meet STEMI criteria, however a troponin 17. A very elevated BNP at greater than 35,000 noted as well. Chest x-ray shows a patchy density in the left base and vascular congestion. D/w ER physician, she has refused intubation, though notes she is full code. Her additional significant history shows severe multi-region peripheral arterial disease and has been followed by Dr. Stockton. The patient has had bilateral carotid surgery, repair of abdominal aortic aneurysm and a femoral bypass. She is followed by vascular surgery The patient had an episode of vomiting in the emergency department while on BiPAP. suction used and the mask was taken off. zofran given. She was intubated on 02/09/18 due to vomiting and progressive respiratory. Treated for severe sepsis and multiorgan system failure, was on dialysis Spoke with nursing staff and daughter. Discussed palliative care as the patient made it clear she wished not to be intubated when I admitted her over a week ago. Family meeting on 02/20/18 resulted in extubation and wishes for limited lab draws and comfort measures only. Acute hypoxic respiratory failure - known h/o COPD. S/p extubation 02/20/18. Weaned onto O2, stop aggressive care, comfort measures only Severe sepsis - with respiratory failure likely 2/2 pneumonia/bronchitis, fever 102.6F, leukocytosis, tachycardia, broad spectrum early antibiotics. Off meds now Acute diastolic heart failure - BNP of greater than 35,000. diuresis for pulmonary congestion helped, can give prn lasix for comfort for shortness of breath ANGELICA - likely vasomotor/sepsis, will f/u nephrology recs. Family made wish to withdraw dialysis PAD - with carotid, AAA, renovascular disease she definitely has CAD as well. Cont ASA, plavix NSTEMI - elevated troponin at 17. Comfort measures Paroxysmal atrial fibrillation. Now in sinus rhythm. on coumadin, INR subtherapeutic, Will start comfort measures. History of a previous CVA - now s/p bilateral CEA and treating afib. Comfort measures now Acute anemia - likely multifactorial, hemolyzing, GI blood loss and renal disease At 2158 on 02/22/18 notified by nursing staff patient . Discharge Information Condition at Discharge: / Disposition/Orders: Scheduled Acetaminophen (Acetaminophen) 500 Mg Tablet, 1 TAB PO BID, #60 Ref 1 (Reported) Entered as Reported by: WINDY BAUMAN on 09/20/17724 Last Action: Converted on 02/09/18851 by CAROLINA MOORE Albuterol Sulfate (Albuterol Sulfate Neb Soln) 0.63 Mg/3 Ml Vial.neb, 1 VIAL NEB QID, #150 Ref 1 (Reported) Entered as Reported by: WINDY BAUMAN on 09/20/17724 Last Action: Reviewed on 02/15/181109 by VALERIA PAUL [facility] Aspirin (Aspirin) 325 Mg Tablet, 1 TAB PO DAILY, #30 Ref 5 (Reported) Entered as Reported by: WINDY BAUMAN on 09/20/17724 Last Action: Continued on 02/08/182136 by MADAN DRAKE MD Atorvastatin Calcium (Atorvastatin Calcium) 10 Mg Tablet, 1 TAB PO DAILY, #30 Ref 5 (Reported) Entered as Reported by: WINDY BAUMAN on 09/20/17724 Last Action: Continued on 02/08/182136 by MADAN DRAKE MD Clonidine Hcl (Clonidine Hcl) 0.1 Mg Tablet, 1 TAB PO QHS, #30 Ref 2 (Reported) Entered as Reported by: WINDY BUAMAN on 09/20/17724 Last Action: Continued on 02/08/182136 by MADAN DRAKE MD Docusate Sodium (Colace) 100 Mg Capsule, 1 CAP PO BID, #30 (Reported) Entered as Reported by: WINDY BAUMAN on 09/20/17724 Last Action: Continued on 02/08/182136 by MADAN DRAKE MD Escitalopram Oxalate (Lexapro) 20 Mg Tablet, 1 TAB PO QHS, (Reported) Entered as Reported by: PIA GORDON on 10/21/16536 Last Action: Converted on 02/09/18851 by CAROLINA MOORE Gabapentin (Gabapentin ) 300 Mg Capsule, 300 MG PO TID, (Reported) Entered as Reported by: WINDY BAUMAN on 09/20/17724 Last Action: Continued on 02/08/182136 by MADAN DRAKE MD Hydrochlorothiazide (Hydrochlorothiazide Tablet) 12.5 Mg Tablet, 1 TAB PO QHS, ( Reported) Entered as Reported by: PIA GORDON on 10/21/16536 Last Action: Converted on 02/09/18851 by CAROLINA MOORE Hydrocodone Bit/Acetaminophen (Hydrocodone-Apap 10-325 ) 1 Each Tablet, 1 TAB PO PRN Q4HRS, Ref 0 (Reported) Entered as Reported by: PIA GORDON on 10/21/166 Last Action: Continued on 02/09/18851 by CAROLINA MOORE Magnesium Oxide (Magnesium Oxide) 400 Mg Tablet, 1 TAB PO DAILY, #30 Ref 5 ( Reported) Entered as Reported by: WINDY BAUMAN on 09/20/17724 Last Action: Converted on 02/09/18851 by CAROLINA MOORE Multivitamin (Multivitamins) 1 Each Tablet, 1 TAB PO DAILY, #90 Ref 3 (Reported) Entered as Reported by: WINDY BAUMAN on 09/20/17724 Last Action: Converted on 02/09/18851 by CAROLINA MOORE Nicotine (NICODERM CQ 14mg) 1 Each Patch.td24, 1 PATCH TP DAILY, #14 (Reported) Entered as Reported by: WINDY BAUMAN on 09/20/17724 Last Action: Converted on 02/09/18851 by CAROLINA MOORE Ondansetron Hcl (Zofran) 4 Mg Tablet, 1 TAB PO Q6HRS, #20 (Reported) Entered as Reported by: WINDY BAUMAN on 09/20/17724 Last Action: Converted on 02/09/18851 by CAROLINA MOORE Oxycodone Hcl (Oxycontin ) 10 Mg Tab.er.12h, 10 MG PO BID for PAIN, (Reported) Entered as Reported by: PIA GORDON on 10/21/16 0036 Last Action: Continued on 02/09/18851 by CAROLINA MOORE Oxycodone/Apap 5-325 (Percocet 5-325 Mg Tablet ) 1 Each Tablet, 1 TAB PO BID for 3 Days, #6 Prescribed by: DAVID RUBI PA-C on 07/31/17 1616 Last Action: Continued on 02/09/18851 by CAROLINA MOORE Polyethylene Glycol 3350 (Miralax) 17 Gm Powd.pack, 1 PACKET PO DAILY, #30 Ref 3 (Reported) Entered as Reported by: WINDY BAUMAN on 09/20/17724 Last Action: Converted on 02/09/18851 by CAROLINA MOORE Prednisone (Prednisone) 20 Mg Tablet, 1 TAB PO DAILY, #5 (Reported) Entered as Reported by: WINDY BAUMAN on 09/20/17724 Last Action: HELD on 02/09/18851 by CAROLINA MOORE Quetiapine Fumarate (Seroquel) 25 Mg Tablet, 1 TAB PO QHS, (Reported) Entered as Reported by: PIA GORDON on 10/21/16 0537 Last Action: Reviewed on 02/15/181111 by VALERIA PAUL RP Scheduled PRN Tramadol Hcl (Tramadol Hcl) 50 Mg Tablet, 50 MG PO DAILY PRN for PAIN, Ref 0 ( Reported) Entered as Reported by: WINDY BAUMAN on 09/20/17724 Last Action: Continued on 02/09/18851 by CAROLINA MOORE Miscellaneous Medications Ascorbic Acid (Vitamin C) 500 Mg Tablet.er, 500 MG PO, (Reported) Entered as Reported by: WINDY BAUMAN on 09/20/17724 Hydralazine Hcl (Hydralazine Hcl) 20 Mg/1 Ml Vial, 20 MG IJ, (Reported) Entered as Reported by: WINDY BAUMAN on 09/20/17724 Last Action: HELD on 02/09/18851 by CAROLINA MOORE Lactobacillus Acidophilus (Acidophilus) 1 Each Capsule, 1 EACH PO, (Reported) Entered as Reported by: WINDY BAUMAN on 09/20/17724 Magnesium Hydroxide (Milk Of Magnesia) 400 Mg/5 Ml Oral.susp, 400 MG PO, ( Reported) Entered as Reported by: WINDY BAUMAN on 09/20/17724 Last Action: Continued on 02/09/18851 by MADAN FARRELL MD Feb 22, 2018 07:29
== END 2018-02-22 01:00 | disposition expired | DRG 870 ==
LOC: ER 15:42 → 1 WEST ICU 17:03 → 6 SOUTH 02-21 09:05
PROVIDERS: ADMIT Internal Medicine; ATTEND Internal Medicine
PROC: 5A09457 Assistance with Respiratory Ventilation, 24-96 Consecutive Hours, Continuous Positive Airway Pressure (ICD-10-PCS; 2018-02-08)
PROC: 0BH17EZ Insertion of Endotracheal Airway into Trachea, Via Natural or Artificial Opening (ICD-10-PCS; 2018-02-09)
PROC: 5A1935Z Respiratory Ventilation, Less than 24 Consecutive Hours (ICD-10-PCS; 2018-02-09)
PROC: 5A09357 Assistance with Respiratory Ventilation, Less than 24 Consecutive Hours, Continuous Positive Airway Pressure (ICD-10-PCS; 2018-02-09)
PROC: 5A1955Z Respiratory Ventilation, Greater than 96 Consecutive Hours (ICD-10-PCS; principal; 2018-02-10)
PROC: 02HV33Z Insertion of Infusion Device into Superior Vena Cava, Percutaneous Approach (ICD-10-PCS; 2018-02-13)
PROC: B548ZZA Ultrasonography of Superior Vena Cava, Guidance (ICD-10-PCS; 2018-02-13)
PROC: 5A1D70Z Performance of Urinary Filtration, Intermittent, Less than 6 Hours Per Day (ICD-10-PCS; 2018-02-13)
PROC: 5A1D70Z Performance of Urinary Filtration, Intermittent, Less than 6 Hours Per Day (ICD-10-PCS; 2018-02-14)
PROC: 30233N1 Transfusion of Nonautologous Red Blood Cells into Peripheral Vein, Percutaneous Approach (ICD-10-PCS; 2018-02-15)
PROC: 5A1D70Z Performance of Urinary Filtration, Intermittent, Less than 6 Hours Per Day (ICD-10-PCS; 2018-02-16)
PROC: 5A1D70Z Performance of Urinary Filtration, Intermittent, Less than 6 Hours Per Day (ICD-10-PCS; 2018-02-18)
DX: A41.9 Sepsis, unspecified organism (principal); I21.4 Non-ST elevation (NSTEMI) myocardial infarction; J96.01 Acute respiratory failure with hypoxia; I50.31 Acute diastolic (congestive) heart failure; J69.0 Pneumonitis due to inhalation of food and vomit; N17.0 Acute kidney failure with tubular necrosis; G93.41 Metabolic encephalopathy; I13.0 Hypertensive heart and chronic kidney disease with heart failure and stage 1 through stage 4 chronic kidney disease, or unspecified chronic kidney disease; J44.1 Chronic obstructive pulmonary disease with (acute) exacerbation; I42.0 Dilated cardiomyopathy; J44.0 Chronic obstructive pulmonary disease with (acute) lower respiratory infection; I48.0 Paroxysmal atrial fibrillation; R65.20 Severe sepsis without septic shock; F41.9 Anxiety disorder, unspecified; M79.7 Fibromyalgia; I73.9 Peripheral vascular disease, unspecified; G40.909 Epilepsy, unspecified, not intractable, without status epilepticus; I25.10 Atherosclerotic heart disease of native coronary artery without angina pectoris; F17.210 Nicotine dependence, cigarettes, uncomplicated; G89.4 Chronic pain syndrome; F32.9 Major depressive disorder, single episode, unspecified; J20.9 Acute bronchitis, unspecified; D64.9 Anemia, unspecified; N18.3 Chronic kidney disease, stage 3 (moderate); K21.9 Gastro-esophageal reflux disease without esophagitis; Z51.5 Encounter for palliative care; Z66 Do not resuscitate; Z86.79 Personal history of other diseases of the circulatory system; Z80.3 Family history of malignant neoplasm of breast; Z90.710 Acquired absence of both cervix and uterus; Z90.49 Acquired absence of other specified parts of digestive tract; Z86.73 Personal history of transient ischemic attack (TIA), and cerebral infarction without residual deficits; Z79.01 Long term (current) use of anticoagulants; Z88.6 Allergy status to analgesic agent; Z88.1 Allergy status to other antibiotic agents; Z88.5 Allergy status to narcotic agent; Z82.49 Family history of ischemic heart disease and other diseases of the circulatory system; Z79.02 Long term (current) use of antithrombotics/antiplatelets; Z86.19 Personal history of other infectious and parasitic diseases; Z83.3 Family history of diabetes mellitus; Z80.0 Family history of malignant neoplasm of digestive organs; Z80.41 Family history of malignant neoplasm of ovary; Z79.82 Long term (current) use of aspirin
CPT/HCPCS: 36415; 36556; 36600; 70450; 71045; 76770; 76937; 80048; 80053; 80076; 81001; 82565; 82805; 82962; 83605; 83690; 83735; 83880; 84484; 85007; 85025; 85027; 85520; 85610; 85730; 86850; 86900; 86901; 86920; 87040; 87070; 87086; 87205; 87340; 87493; 87641; 87804; 93005; 93308; 94002; 94003; 94640; 94660; 94760; 96374; 96375; A4215; C1892; C9113; J0330; J0692; J0881; J1644; J1940; J2020; J2060; J2185; J2248; J2250; J2270; J2370; J2405; J2543; J2704; J2920; J3010; J3370; J3475; J3490; J7040; J7050; J7613; J7620; J7626; J7644; P9016; Q0162; 99285-25; J7030